=== PATIENT | female | born 1955 | race Caucasian/White ===

== ENCOUNTER 2019-07-31 13:49 | Emergency (ER) | payer MEDICAID, SELFPAY ==
[2019-07-31] MEDS ORDERED: IPRATROPIUM BROM 0.5MG/2.5ML ONE (14:24)
[2019-07-31] MEDS ORDERED: AZITHROMYCIN 250 MG TAB ONE (14:24)
[2019-07-31] MEDS ORDERED: LEVALBUTEROL 1.25 MG/3 ML NEB ONE ×2 (14:24→16:44)
[2019-07-31] MEDS ORDERED: METHYLPREDNISOLONE 125 MG INJ ONE (14:24)
--- NOTE | 2019-07-31 14:43 | RAD REPORT ---
EXAM DESCRIPTION: Pedro Luis Single View07/31/2019 2:35 pm CLINICAL HISTORY: Cough COMPARISON: 2016 FINDINGS: The lungs appear clear of acute infiltrate. The heart is normal size IMPRESSION: No acute abnormalities displayed
[2019-07-31 15:09] LABS: Absolute Lymphocytes (CBC) 1.4 K/uL (0.7-4.9); Basophils % 1.2 % (0-1.3); Hematocrit 33.4 % (36.0-45.0); Lymphocytes % 16.6 % (15.3-44.8); MPV 8.8 fL (7.6-11.3); RBC Red Blood Cell Count 3.94 M/uL (3.86-4.86)
[2019-07-31 15:25] LABS: ALT/SGPT 18 U/L (12-78); AST/SGOT 12 U/L (15-37); Albumin 3.5 g/dL (3.4-5.0); Alkaline Phosphatase 86 U/L (45-117); BUN Blood Urea Nitrogen 22 mg/dL (7-18); Bicarbonate 27 mmol/L (21-32); Bilirubin Direct 0.1 mg/dL (0-0.2); Bilirubin Total 0.4 mg/dL (0.2-1.0); CKMB Creatine Kinase MB < 1.0 ng/mL (0.3-3.6); Creatine Phosphokinase 37 U/L (26-192); Glucose Level 97 mg/dL (74-106); Lipase 124 U/L (73-393); Magnesium 2.2 mg/dL (1.8-2.4); NT PRO-BNP 67 pg/mL (<125); Potassium 4.5 mmol/L (3.5-5.1); Protein, Total 7.5 g/dL (6.4-8.2); Sodium Level 139 mmol/L (136-145); Troponin (Emerg Dept Use Only) < 0.02 ng/mL (0.0-0.045)
--- NOTE | 2019-07-31 15:29 | EDPHYS ---
Physician Documentation [facility] Name: Janice Harry Age: 63 yrs Sex: Female : 1955 Arrival Date: 07/31/2019 Time: 14:00 Bed 18 Private MD: ED Physician Fred Stone HPI: 07/31 14:59 This 63 yrs old Female presents to ER via EMS with complaints of Shortness Of ma2 Breath. 14:59 The patient has shortness of breath at rest. Onset: The symptoms/episode began/occurred ma2 gradually, 1 week(s) ago. Duration: The symptoms are intermittent. Associated signs and symptoms: Pertinent negatives: non-productive cough, diaphoresis, dizziness, hemoptysis. Severity of symptoms: At their worst the symptoms were mild in the emergency department the symptoms are unchanged. The patient has not experienced similar symptoms in the past. Historical: - Allergies: 14:28 Requip; sv 14:28 Tegretol; sv - PMHx: 17:06 Anxiety; Depression; Hyperlipidemia; Hypertension; ah - PSHx: 14:28 Appendectomy; Hysterectomy; Cholecystectomy; bilateral legs; left elbow; sv - Immunization history:: Flu vaccine is up to date. - Coronavirus screen:: The patient has NOT traveled to [place], [place], or [place] in the past 14 days. Proceed with normal triage process as indicated. The patient has NOT had contact with known/suspected case of Coronavirus? Proceed with normal triage procedures. - Social history:: Patient/guardian denies using alcohol, street drugs, The patient lives with family, Smoking status: Patient/guardian denies using tobacco, but has a distant history of tobacco abuse. - Family history:: not pertinent. - Ebola Screening: : No symptoms or risks identified at this time. ROS: 14:59 Constitutional: Negative for fever, chills, and weight loss. ma2 14:59 All other systems are negative. Exam: 14:59 Constitutional: This is a well developed, well nourished patient who is awake, alert, ma2 and in no acute distress. Head/Face: Normocephalic, atraumatic. Eyes: Pupils equal round and reactive to light, extra-ocular motions intact. Lids and lashes normal. Conjunctiva and sclera are non-icteric and not injected. Cornea within normal limits. Periorbital areas with no swelling, redness, or edema. ENT: Nares patent. No nasal discharge, no septal abnormalities noted. Tympanic membranes are normal and external auditory canals are clear. Oropharynx with no redness, swelling, or masses, exudates, or evidence of obstruction, uvula midline. Mucous membranes moist. Neck: Trachea midline, no thyromegaly or masses palpated, and no cervical lymphadenopathy. Supple, full range of motion without nuchal rigidity, or vertebral point tenderness. No Meningismus. Chest/axilla: Normal chest wall appearance and motion. Nontender with no deformity. No lesions are appreciated. Cardiovascular: Regular rate and rhythm with a normal S1 and S2. No gallops, murmurs, or rubs. Normal PMI, no JVD. No pulse deficits. Respiratory: Lungs have equal breath sounds bilaterally,+ bilat mild wheezes,. No rales, rhonchi or noted. No increased work of breathing, no retractions or nasal flaring. Abdomen/GI: Soft, non-tender, with normal bowel sounds. No distension or tympany. No guarding or rebound. No evidence of tenderness throughout. Back: No spinal tenderness. No costovertebral tenderness. Full range of motion. MS/ Extremity: Pulses equal, no cyanosis. Neurovascular intact. Full, normal range of motion. Neuro: Awake and alert, GCS 15, oriented to person, place, time, and situation. Cranial nerves II-XII grossly intact. Motor strength 5/5 in all extremities. Sensory grossly intact. Cerebellar exam normal. Normal gait. Vital Signs: 14:00 BP 123 / 62; Pulse 69; Resp 18; Temp 98.2; Pulse Ox 95% ; sv 15:10 BP 106 / 75; Pulse 63; Resp 19; Pulse Ox 99% ; ah 16:00 BP 134 / 57; Pulse 68; Resp 18; Pulse Ox 99% ; ah 17:00 BP 136 / 63; Pulse 67; Resp 19; Pulse Ox 95% ; ah MDM: 14:03 Patient medically screened. ma2 14:59 Differential diagnosis: Anemia Anxiety Reaction Bronchitis Chronic Obstructive ma2 Pulmonary Disease Psychogenic reactive airway disease. Antibiotic administration: The patient is discharged and will get outpatient antibiotics. Data reviewed: vital signs, nurses notes. Counseling: I had a detailed discussion with the patient and/or guardian regarding: the historical points, exam findings, and any diagnostic results supporting the discharge/admit diagnosis, the presence of at least one elevated blood pressure reading (>120/80) during this emergency department visit, the need for outpatient follow up. Response to treatment: the patient's symptoms have markedly improved after treatment. 07/31 14:05 Order name: Blood Culture Adult (2) 07/31 14:05 Order name: BMP [facility] 07/31 14:05 Order name: CBC with Diff 07/31 14:05 Order name: Ckmb 07/31 14:05 Order name: CPK ia07/31 14:05 Order name: D-Dimer [facility] 07/31 14:05 Order name: Hepatic Function ia07/31 14:05 Order name: Lipase [facility] 07/31 14:05 Order name: Magnesium [facility] 07/31 14:05 Order name: NT PRO-BNP [facility] 07/31 14:05 Order name: PT-INR [facility] 07/31 14:05 Order name: Ptt, Activated [facility] 07/31 14:05 Order name: Troponin (emerg Dept Use Only) ia07/31 15:16 Order name: CBC with Automated Diff; Complete Time: 15:27 EDMS 07/31 14:05 Order name: XRAY CXR (1 view) 07/31 15:21 Order name: RAD; Complete Time: 15:27 EDMS 07/31 15:26 Order name: Basic Metabolic Panel; Complete Time: 15:27 EDMS 07/31 15:26 Order name: Liver (Hepatic) Function; Complete Time: 15:27 EDMS 07/31 15:26 Order name: Creatine Phosphokinase; Complete Time: 15:27 EDMS 07/31 15:26 Order name: CKMB Creatine Kinase MB; Complete Time: 15:27 EDMS 07/31 15:26 Order name: Troponin (Emerg Dept Use Only); Complete Time: 15:27 EDMS 07/31 15:26 Order name: NT PRO-BNP; Complete Time: 15:27 EDMS 07/31 15:26 Order name: Magnesium; Complete Time: 15:27 EDMS 07/31 15:26 Order name: Lipase; Complete Time: 15:27 EDMS 07/31 15:48 Order name: Protime (+INR); Complete Time: 16:13 EDMS 07/31 15:48 Order name: PTT, Activated Partial Thromb; Complete Time: 16:13 EDMS 07/31 15:48 Order name: D-Dimer; Complete Time: 16:13 EDME 07/31 14:05 Order name: EKG; Complete Time: 14:09 ia2 07/31 14:05 Order name: Cardiac monitoring; Complete Time: 14:07 ia2 07/31 14:05 Order name: EKG - Nurse/Tech; Complete Time: 15:34 ia2 07/31 14:05 Order name: IV Saline Lock; Complete Time: 15:16 ma2 07/31 14:05 Order name: Labs collected and sent; Complete Time: 15:15 ia2 07/31 14:05 Order name: O2 Per Protocol; Complete Time: 14:08 ia2 07/31 14:05 Order name: O2 Sat Monitoring; Complete Time: 14:08 ia2 07/31 15:18 Order name: Labs - recollect needed: recollect blue top; Complete Time: 15:31 bd Administered Medications: 14:33 CANCELLED (Physician Discretion): AtroVENT Aerosol 0.5 mg Inhalation once; Every 20 min sv for a total of 3 treatments x3 15:00 Drug: SOLU-Medrol 125 mg Route: IVP; Site: right forearm; 17:11 Follow up: Response: No adverse reaction 15:00 Drug: Xopenex 1.25 mg Route: Inhalation; 15:00 Drug: AZITHromycin 500 mg Route: PO; 17:10 Follow up: Response: No adverse reaction 15:00 Drug: AtroVENT Aerosol 0.5 mg Route: Inhalation; 17:09 Follow up: Response: No adverse reaction Disposition: 07/31/19 15:28 Discharged to Home. Impression: Chronic obstructive pulmonary disease with (acute) exacerbation. - Condition is Stable. - Prescriptions for Zithromax Z- Avel 250 mg Oral Tablet - take 1 tablet by ORAL route as directed for 5 days Day 1 - take two (2) tablets one time. Day 2, 3, 4 , 5 take one (1) tablet once daily.; 6 tablet. Medrol (Avel) 4 mg Oral Tablets, Dose Pack - take 1 tablet by ORAL route as directed - follow package instructions; 1 packet. Albuterol Sulfate 90 mcg/actuation - inhale 1-2 puff by INHALATION route every 4-6 hours; 1 Inhaler. - Medication Reconciliation Form, Thank You Letter, Antibiotic Education, Prescription Opioid Use form. - Follow up: Private Physician; When: Tomorrow; Reason: Continuance of care. Signatures: Dispatcher [employer] Michelle De Paz Stephanie RN RN Fred Stone MD MD ia2 Chanel Espinal RN RN Corrections: (The following items were deleted from the chart) 14:33 14:05 AtroVENT Aerosol 0.5 mg Inhalation once; Every 20 min for a total of 3 treatments sv x3 ordered. ma2 17:06 14:28 PMHx: Anxiety; [facility] 17:06 14:28 PMHx: Depression; [facility] 17:06 14:28 PMHx: Hyperlipidemia; [facility] 17:06 14:28 PMHx: Hypertension; [facility] 17:10 15:28 07/31/2019 15:28 Discharged to Home. Impression: Chronic obstructive pulmonary ah disease with (acute) exacerbation. Condition is Stable. Prescriptions for Zithromax Z-Avel 250 mg Oral Tablet - take 1 tablet by ORAL route as directed for 5 days Day 1 - take two (2) tablets one time. Day 2, 3, 4 , 5 take one (1) tablet once daily.; 6 tablet, Medrol (Avel) 4 mg Oral Tablets, Dose Pack - take 1 tablet by ORAL route as directed - follow package instructions; 1 packet, Albuterol Sulfate 90 mcg/actuation - inhale 1-2 puff by INHALATION route every 4-6 hours; 1 Inhaler. and Forms are Medication Reconciliation Form, Thank You Letter, Antibiotic Education, Prescription Opioid Use. Follow up: Private Physician; When: Tomorrow; Reason: Continuance of care. ma2
--- NOTE | 2019-07-31 15:29 | ER ---
Nurse's Notes [facility] Name: Janice Harry Age: 63 yrs Sex: Female : 1955 Arrival Date: 07/31/2019 Time: 14:00 Bed 18 Private MD: Diagnosis: Chronic obstructive pulmonary disease with (acute) exacerbation Presentation: 07/31 14:01 Presenting complaint: EMS states: Pt was at clinic in [place] and her SOB became worse. pt was coughing and could not catch her breath vitals - 155/92, HR 81, temp 98.2, SpO2 98%, RR 20. Transition of care: clinic. Onset of symptoms was July 27, 2019. Risk Assessment: Do you want to hurt yourself or someone else? Patient reports no desire to harm self or others. Initial Sepsis Screen: Does the patient meet any 2 criteria? No. Patient's initial sepsis screen is negative. Care prior to arrival: Medication(s) given: Albuterol Neb. 14:01 Method Of Arrival: EMS: [place] [facility] 14:01 Acuity: HEBER 3 Historical: - Allergies: 14:28 Requip; sv 14:28 Tegretol; sv - PMHx: 17:06 Anxiety; Depression; Hyperlipidemia; Hypertension; ah - PSHx: 14:28 Appendectomy; Hysterectomy; Cholecystectomy; bilateral legs; left elbow; sv - Immunization history:: Flu vaccine is up to date. - Coronavirus screen:: The patient has NOT traveled to [place], [place], or [place] in the past 14 days. Proceed with normal triage process as indicated. The patient has NOT had contact with known/suspected case of Coronavirus? Proceed with normal triage procedures. - Social history:: Patient/guardian denies using alcohol, street drugs, The patient lives with family, Smoking status: Patient/guardian denies using tobacco, but has a distant history of tobacco abuse. - Family history:: not pertinent. - Ebola Screening: : No symptoms or risks identified at this time. Screenin:08 Abuse screen: Denies threats or abuse. Denies injuries from another. Nutritional sv screening: No deficits noted. Tuberculosis screening: No symptoms or risk factors identified. Fall Risk None identified. Assessment: 14:08 General: Appears Behavior is cooperative, appropriate for age. Pain: Denies pain. Neuro: Level of Consciousness is awake, alert, obeys commands, Oriented to person, place, time, situation. Cardiovascular: Heart tones S1 S2 present Capillary refill < 3 seconds Pulses are palpable in right radial artery, right dorsalis pedis artery, left radial artery and left dorsalis pedis artery. 14:08 Respiratory: Airway is patent Respiratory effort is even, labored, Respiratory pattern ah is regular, symmetrical, Breath sounds are coarse bilaterally. Breath sounds with wheezes in right upper lobe and left upper lobe Onset: The symptoms/episode began/occurred 4 days but worsened today, the patient has moderate shortness of breath. GI: Abdomen is non-distended, obese, Bowel sounds present X 4 quads. Abd is soft and non tender X 4 quads. : No signs and/or symptoms were reported regarding the genitourinary system. 16:25 Reassessment: Ok to discharge home. sv 17:02 Cardiovascular: Rhythm is. Vital Signs: 14:00 BP 123 / 62; Pulse 69; Resp 18; Temp 98.2; Pulse Ox 95% ; sv 15:10 BP 106 / 75; Pulse 63; Resp 19; Pulse Ox 99% ; ah 16:00 BP 134 / 57; Pulse 68; Resp 18; Pulse Ox 99% ; 17:00 BP 136 / 63; Pulse 67; Resp 19; Pulse Ox 95% ; ED Course: 14:00 Patient arrived in ED. 14:03 Fred Stone MD is Attending Physician. [facility] 14:06 Triage completed. 14:07 Chanel Espinal, RN is Primary Nurse. sv 14:08 Patient has correct armband on for positive identification. Placed in gown. Bed in low sv position. Call light in reach. Side rails up X2. aws software development engineer on. Pulse ox on. NIBP on. Door closed. Head of bed elevated. 14:29 Arm band placed on. sv 14:55 Accessed midline Clean \T\ dry. Good blood return. Flushes easily. 18G 10CM POWER GLIDE. rv 15:32 XRAY CXR (1 view) Sent. sv 15:32 BMP Sent. sv 15:32 CBC with Diff Sent. sv 15:32 Ckmb Sent. sv 15:32 CPK Sent. sv 15:33 D-Dimer Sent. sv 15:33 Hepatic Function Sent. sv 15:33 Lipase Sent. sv 15:33 Magnesium Sent. sv 15:33 NT PRO-BNP Sent. sv 15:34 PT-INR Sent. sv 15:34 Ptt, Activated Sent. sv 15:34 Troponin (emerg Dept Use Only) Sent. sv 15:34 Blood Culture Adult (2) Sent. sv 17:01 No provider procedures requiring assistance completed. Subsequent Neb Treatment Given as ordered Patient tolerated procedure well without adverse effect. IV discontinued, intact, bleeding controlled, No redness/swelling at site. Pressure dressing applied. Administered Medications: 14:33 CANCELLED (Physician Discretion): AtroVENT Aerosol 0.5 mg Inhalation once; Every 20 min sv for a total of 3 treatments x3 15:00 Drug: SOLU-Medrol 125 mg Route: IVP; Site: right forearm; ah 17:11 Follow up: Response: No adverse reaction 15:00 Drug: Xopenex 1.25 mg Route: Inhalation; ah 15:00 Drug: AZITHromycin 500 mg Route: PO; ah 17:10 Follow up: Response: No adverse reaction 15:00 Drug: AtroVENT Aerosol 0.5 mg Route: Inhalation; 17:09 Follow up: Response: No adverse reaction Outcome: 15:28 Discharge ordered by . elham 17:00 Condition: stable ah 17:00 Discharge instructions given to patient, Instructed on discharge instructions, medication usage, Demonstrated understanding of instructions, medications, Prescriptions given X 3. 17:04 Discharged to home ambulatory. ah 17:10 Patient left the ED. Signatures: Adrienne Ling RN RN Fred Stone MD MD inEleuterio De Leon RN RN Chanel Espinal RN RN Corrections: (The following items were deleted from the chart) 14:08 14:01 Presenting complaint: EMS states: Pt was at clinic in [place] and her SOB became ah worse. pt was coughing and could not catch her breath 15:32 14:08 Cardiovascular: Heart tones S1 S2 present Capillary refill < 3 seconds [facility] 17:06 14:28 PMHx: Anxiety; [facility] 17:06 14:28 PMHx: Depression; [facility] 17: 14:28 PMHx: Hyperlipidemia; [facility] 17:06 14:28 PMHx: Hypertension; [facility]
[2019-07-31 15:47] LABS: Protime INR 1.09
[2019-07-31] MEDS ORDERED: ACETAMINOPHEN 500 MG TAB ONE (16:47)
--- NOTE | 2019-07-31 17:42 | EKG ---
Test Date: 2019-07-31 Test Time: 14:22:09 Sterile Proc Tech: SISI MEASUREMENT RESULTS: Intervals: Rate: 65 AL: 194 QRSD: 88 QT: 408 QTc: 424 [place]: P: 42 AL: 194 QRS: -5 T: 42 INTERPRETIVE STATEMENTS: Normal sinus rhythm Low voltage QRS Cannot rule out Anterior infarct, age undetermined Abnormal ECG Compared to ECG 10/24/2015 17:26:49 Low QRS voltage now present Myocardial infarct finding now present Sinus bradycardia no longer present Electronically Signed On 07-31-19 17:42:12 TOMBSTONE ERECTOR by Atif Espinal
== END 2019-07-31 17:10 | disposition home or self-care (01) ==
LOC: ER 13:49
DX: J44.1 Chronic obstructive pulmonary disease with (acute) exacerbation (principal); I10 Essential (primary) hypertension; Z88.8 Allergy status to other drugs, medicaments and biological substances
CPT/HCPCS: 36415; 71045; 80048; 80076; 82550; 82553; 83690; 83735; 83880; 84484; 85025; 85379; 85610; 85730; 87040; 93005; 96374; 99285; J2930

== ENCOUNTER 2020-10-17 09:01 | Emergency (ER) | payer OTHER, SELFPAY ==
--- OUTSIDE RECORDS SUMMARY | 2020-10-17 09:04 | XMS REPORT | Continuity of Care Document ---
:1955 Author Organization [facility] t Address [address] [place] [address] Care Team Providers Name Role Phone Esperanza CR Attending Clinician BONILLA Attending Clinician Unavailable Jose DODSONP, Robert Attending Clinician Nathen MANUFACTURING DESIGN ENGINEER Attending Clinician Problems This patient has no known problems. Allergies, Adverse Reactions, Alerts This patient has no known allergies or adverse reactions. Medications This patient has no known medications. Procedures This patient has no known procedures. Encounters Start End Encounter Admission Attending Care Care Encounter Source Date/Time Date/Time Type Type Clinicians Facility Department ID 2020-10-16 2020-10-16 Refill LINDSEY Mata [id number] 00:00:00 00:00:00 Fidencio Bess [id number] [place] [id number] [place] [id number] nal 085 [facility] 2020-10-01 2020-10-01 Outpatient [facility] [id number] [place] 00:00:00 00:00:00 RHIANNON [address] 2020-09-19 2020-09-19 Outpatient [facility] [id number] [place] 00:00:00 00:00:00 RHIANNON [facility] 2020-09-04 2020-09-04 Outpatient [facility] [id number] [place] 00:00:00 00:00:00 RHIANNON [address] [facility] 2020-08-28 2020-08-28 Outpatient [facility] [id number] [place] 00:00:00 00:00:00 RHIANNON [address] 2020-08-20 2020-08-20 Outpatient [facility] [id number] [place] 00:00:00 00:00:00 RHIANNON [address] [facility] 2020-08-13 2020-08-13 Outpatient [facility] [id number] [place] 00:00:00 00:00:00 RHIANNON [address] [facility] 2020-07-30 2020-07-30 Outpatient [facility] [id number] [place] 00:00:00 00:00:00 RHIANNON [address] 2020-06-17 2020-06-17 Urgent [facility] [id number] 18:48:25 19:08:25 Care [facility] [id number] [place] [id number] [facility] [phone] nal [address] 2020-05-27 2020-05-[address] [facility] [id number] 16:58:39 17:55:24 Care [facility] [id number] [place] [id number] [facility] [id number] nal 0[address] Results This patient has no known results.
[2020-10-17 09:44] LABS: Urine Blood 3+ (Negative); Urine Glucose Negative (Negative); Urine Protein 3+ (Negative); Urine Specific Gravity 1.025 (1.005-1.030)
[2020-10-17 10:14] LABS: Urine Bacteria <20 /HPF (<20); Urine RBC >50 /HPF (NONE SEEN); Urine Urothelial Cells <5 /HPF (NONE SEEN)
[2020-10-17] MEDS ORDERED: HYDROCODONE/APAP 10/325 TAB ONE (10:29)
[2020-10-17] MEDS ORDERED: PHENAZOPYRIDINE 100MG TAB PO ONE (10:29)
[2020-10-17] MEDS ORDERED: levoFLOXacin 500 MG TAB ONE (10:29)
--- NOTE | 2020-10-17 13:42 | EDPHYS ---
Physician Documentation [facility] Name: Janice Harry Age: 65 yrs Sex: Female : 1955 Arrival Date: 10/17/2020 Time: 09:07 Bed 14 Private MD: Cr Roy E ED Physician Salvador Wakefield Historical: - Allergies: 10/17 09:25 Requip; ss 09:25 Tegretol; ss - PMHx: 09:25 Anxiety; Depression; Hyperlipidemia; Hypertension; ss - PSHx: 09:25 Appendectomy; Hysterectomy; Cholecystectomy; bilateral legs; left elbow; ss - Immunization history:: Adult Immunizations up to date. - Social history:: Smoking status: Patient denies any tobacco usage or history of. Vital Signs: 09:21 Pulse 91; Resp 18; Temp 99.0(TE); Pulse Ox 98% on R/A; Weight 99.79 kg; Height 5 ft. 8 ss in. (172.72 cm); Pain 8/10; 10:30 BP 167 / 72; Pulse 90; Resp 16; Pulse Ox 97% on R/A; vg1 11:35 BP 170 / 78; Pulse 87; Resp 16; Pulse Ox 100% on R/A; vg1 09:21 Body Mass Index 33.45 (99.79 kg, 172.72 cm) ss MDM: 13:42 Patient medically screened. kdr 10/17 09:43 Order name: Urine Dipstick-Ancillary; Complete Time: 10:08 EDDC 10/17 09:44 Order name: Urine Microscopic Only; Complete Time: 11:25 ss 10/17 10:15 Order name: Urine Culture [facility] 10/17 09:21 Order name: Urine Dipstick-Ancillary (obtain specimen); Complete Time: 09:44 kdr Administered Medications: 10:17 Drug: LevaQUIN (levofloxacin) 500 mg Route: PO; em 13:49 Follow up: Response: No adverse reaction vg1 10:17 Drug: Pyridium (phenazopyridine) 200 mg Route: PO; em 13:49 Follow up: Response: No adverse reaction; Pain is decreased vg1 10:17 Drug: Cobb (HYDROcodone-acetaminophen) 10 mg-325 mg 1 tabs Route: PO; em 13:49 Follow up: Response: No adverse reaction; Pain is decreased vg1 Disposition: 10/17/20 13:42 Discharged to Home. Impression: Hematuria, Dysuria, Cystitis, unspecified with hematuria. - Condition is Stable. - Discharge Instructions: Dysuria, Urinary Tract Infection, Adult, Ilpo-my-Qyil. - Prescriptions for Levaquin 500 mg Oral Tablet - take 1 tablet by ORAL route once daily for 7 days; 7 tablet. Pyridium 200 mg Oral Tablet - take 1 tablet by ORAL route every 8 hours for 3 days; 9 tablet. Zofran 4 mg Oral Tablet - take 1 tablet by ORAL route every 4-6 hours As needed; 12 tablet. Tramadol 50 mg Oral Tablet - take 1 tablet by ORAL route every 8 hours as needed; 12 tablet. - Medication Reconciliation Form, Thank You Letter, Antibiotic Education, Prescription Opioid Use form. - Follow up: Cr Roy MD; When: 2 - 3 days; Reason: If symptoms return, Further diagnostic work-up, Recheck today's complaints, Continuance of care, Re-evaluation by your physician. - Problem is new. - Symptoms have improved. Addendum: 10/30/2020 15:50 Addendum: CC: Blood in her urine and pain with urination, HPI The patient states that k dr she began to have pain with urination and blood in her urine this morning. She has not had this before. She is also c/o sharp pain in the suprapubic region. ROS: 10 point ROS all negative except for hematuria, dysuria and suprapubic pain. EXAM: WDWN WF NAD, Head and Neck: Normal cephalic and FROM, Chest: No injury or deformity, Lungs: CTAB, Cor: RRR, Nl s1 and S2, Abd: soft NT except, BS nl, minor suprapubic pain with palpation, Ext: FROM, good n'v intact, Neuro: A\T\O x 3. Addendum: MDM: The patient was happy with the care provided and the plan for discharge and follow-up. Signatures: Dispatcher [employer] Salvador Yan MD MD kdr Munoz, Edgar, RN RN Mila Roberto RN RN ss Garcia, Victoria, RN RN vg1 Corrections: (The following items were deleted from the chart) 10/17 13:50 13:42 10/17/2020 13:42 Discharged to Home. Impression: Hematuria; Dysuria; Cystitis, vg1 unspecified with hematuria. Condition is Stable. Forms are Medication Reconciliation Form, Thank You Letter, Antibiotic Education, Prescription Opioid Use. Follow up: Cr Roy; When: 2 - 3 days; Reason: If symptoms return, Further diagnostic work-up, Recheck today's complaints, Continuance of care, Re-evaluation by your physician. Problem is new. Symptoms have improved. kdr
--- NOTE | 2020-10-17 13:42 | ER ---
Nurse's Notes [facility] Name: Janice Harry Age: 65 yrs Sex: Female : 1955 Arrival Date: 10/17/2020 Time: 09:07 Bed 14 Private MD: Cr Roy E Diagnosis: Hematuria;Dysuria;Cystitis, unspecified with hematuria Presentation: 10/17 09:21 Chief complaint: Patient states: pain with urination that began this morning with first ss void. Pt reports she had blood in her urine also with clots. C/o sharp suprapubic pain. Coronavirus screen: Client denies travel out of the [place] in the last 14 days. Ebola Screen: Patient denies exposure to infectious person. Patient denies travel to an Ebola-affected area in the 21 days before illness onset. Initial Sepsis Screen: Does the patient meet any 2 criteria? Does the patient have a suspected source of infection? No. Patient's initial sepsis screen is negative. Risk Assessment: Do you want to hurt yourself or someone else? Patient reports no desire to harm self or others. Onset of symptoms was October 17, 2020. 09:21 Method Of Arrival: Ambulatory ss 09:21 Acuity: HEBER 3 ss Historical: - Allergies: 09:25 Requip; ss 09:25 Tegretol; ss - PMHx: 09:25 Anxiety; Depression; Hyperlipidemia; Hypertension; ss - PSHx: 09:25 Appendectomy; Hysterectomy; Cholecystectomy; bilateral legs; left elbow; ss - Immunization history:: Adult Immunizations up to date. - Social history:: Smoking status: Patient denies any tobacco usage or history of. Screenin:36 Abuse screen: Denies threats or abuse. Nutritional screening: No deficits noted. tw2 Tuberculosis screening: No symptoms or risk factors identified. Fall Risk None identified. Assessment: 09:10 General: Appears in no apparent distress. obese, well groomed, Behavior is calm, tw2 cooperative, appropriate for age. Pain: Complains of pain in back. Neuro: Level of Consciousness is awake, alert, obeys commands, Oriented to person, place, time, situation. Cardiovascular: Patient's skin is warm and dry. Respiratory: Airway is patent Respiratory effort is even, unlabored, Respiratory pattern is regular, symmetrical. GI: No signs and/or symptoms were reported involving the gastrointestinal system. : Reports burning with urination, urinary frequency. EENT: No signs and/or symptoms were reported regarding the EENT system. Derm: No signs and/or symptoms reported regarding the dermatologic system. Musculoskeletal: Range of motion: intact in all extremities. 09:36 Reassessment: pt in restroom at this time, states "i might be a bit, im trying to tw2 urinate". 10:29 Reassessment: No changes from previously documented assessment. Patient and/or family vg1 updated on plan of care and expected duration. Pain level reassessed. Patient is alert, oriented x 3, equal unlabored respirations, skin warm/dry/pink. Pt stated pain 8/10. 11:31 Reassessment: Patient appears in no apparent distress at this time. No changes from vg1 previously documented assessment. Patient and/or family updated on plan of care and expected duration. Pain level reassessed. Patient is alert, oriented x 3, equal unlabored respirations, skin warm/dry/pink. Vital Signs: 09:21 Pulse 91; Resp 18; Temp 99.0(TE); Pulse Ox 98% on R/A; Weight 99.79 kg; Height 5 ft. 8 ss in. (172.72 cm); Pain 8/10; 10:30 BP 167 / 72; Pulse 90; Resp 16; Pulse Ox 97% on R/A; vg1 11:35 BP 170 / 78; Pulse 87; Resp 16; Pulse Ox 100% on R/A; vg1 09:21 Body Mass Index 33.45 (99.79 kg, 172.72 cm) ED Course: 09:07 Patient arrived in ED. mr 09:07 Cr Roy MD is Private Physician. mr 09:10 Bed in low position. Call light in reach. Pulse ox on. tw2 09:20 Salvador Wakefield MD is Attending Physician. kdr 09:24 Triage completed. ss 09:25 Arm band placed on right wrist. ss 09:36 Agnieszka Fox RN is Primary Nurse. tw2 10:05 Primary Nurse role handed off by Agnieszka Fox RN vg1 10:05 Carmen Callahan RN is Primary Nurse. vg1 13:39 Cr Roy MD is Referral Physician. kdr 13:49 No provider procedures requiring assistance completed. Patient did not have IV access vg1 during this emergency room visit. Administered Medications: 10:17 Drug: LevaQUIN (levofloxacin) 500 mg Route: PO; em 13:49 Follow up: Response: No adverse reaction vg1 10:17 Drug: Pyridium (phenazopyridine) 200 mg Route: PO; em 13:49 Follow up: Response: No adverse reaction; Pain is decreased vg1 10:17 Drug: [place] (HYDROcodone-acetaminophen) 10 mg-325 mg 1 tabs Route: PO; em 13:49 Follow up: Response: No adverse reaction; Pain is decreased vg1 Outcome: 13:42 Discharge ordered by . kdr 13:49 Discharged to home ambulatory. vg1 13:49 Condition: stable 13:49 Discharge instructions given to patient, Instructed on discharge instructions, follow up and referral plans. medication usage, Demonstrated understanding of instructions, follow-up care, medications, Prescriptions given X 1. 13:50 Patient left the ED. vg1 Signatures: Savlador Wakefield MD MD kdr Rivera, Mary mr Munoz, Edgar, LESLIE RN Mila Roberto RN RN ss Agnieszka Fox RN RN tw2 Carmen Callahan RN RN vg1
[2020-10-17 13:54] VITALS: TEMP 99
[2020-10-17 13:56] VITALS: BP 170/78; O2SAT 100
== END 2020-10-17 13:50 | disposition home or self-care (01) ==
LOC: ER 09:01
DX: N30.91 Cystitis, unspecified with hematuria (principal); I10 Essential (primary) hypertension; Z88.8 Allergy status to other drugs, medicaments and biological substances
CPT/HCPCS: 81003; 81015; 87086; 87088; 99283

== ENCOUNTER 2021-01-31 22:49 | Emergency (ER) | payer OTHER ==
--- OUTSIDE RECORDS SUMMARY | 2021-02-01 00:21 | XMS REPORT | Continuity of Care Document ---
:1955 Author Organization [facility] t Address [address] [place] [address] Care Team Providers Name Role Phone Asked, Pcp Primary Care Physician Unavailable Stefano DIAZ Attending Clinician Shruti DIAZ S Attending Clinician Esperanza CR Attending Clinician Ventura DIAZ, K.H. Attending Clinician Manuela DIAZ Attending Clinician Dylan HART Attending Clinician Unavailable Maria D Lomax PT Attending Clinician Unavailable Robert Mathias Attending Clinician Nathen AGUILAR Attending Clinician Payers Payer Name Policy Type Policy Effective Date Expiration Date Sour ce Number [id number] Condition Condition Condition Status Onset Resolution Last Treating Co mments Source Name Details Category Date Date Treatment Clinician Date Acute pain Acute pain Disease Active 0 M ethodi of right of right 4-01 st shoulder shoulder 00:00: Hospit a 00 l Allergies, Adverse Reactions, Alerts This patient has no known allergies or adverse reactions. Social History Social Habit Start Date Stop Date Quantity Comments Source Sex Assigned At [birth year] [facility] 00:00:00 00:00:00 Smoking Status Start Date Stop Date Source Unknown if ever smoked [facility] Medications This patient has no known medications. Procedures This patient has no known procedures. Plan of Care Planned Activity Planned Date Details Comments Source Future Scheduled Test Hepatitis C screening [facility] (procedure) [code = 195623859] Future Scheduled Test BREAST CANCER SCREENING [facility] [code = BREAST CANCER SCREENING] Future Scheduled Test COLONOSCOPY SCREENING [facility] [code = COLONOSCOPY SCREENING] Future Scheduled Test SHINGLES VACCINES (#2) [facility] [code = SHINGLES VACCINES (#2)] Future Scheduled Test INFLUENZA VACCINE [code [facility] = INFLUENZA VACCINE] Future Scheduled Test 65+ PNEUMOCOCCAL [facility] VACCINE (2 of 2) [code = 65+ PNEUMOCOCCAL VACCINE (2 of 2)] Encounters Start End Encounter Admission Attending Care Care Encounter Source Date/Time Date/Time Type Type Clinicians Facility Department ID 2021-01-30 2021-01-30 Emergency [facility] [id number] 06:55:00 10:29:00 Vishal Bess 350.1.13.10 [place] 4.2.7.2.686 [place] [id number] 2021-01-29 2021-01-30 Emergency [facility], [facility] [id number] 21:35:00 01:50:00 Liana Bess 350.1.13.10 [place] 4.2.7.2.686 [place] [id number] 2020-11-18 2020-11-18 Refbarbie Mata [facility] [id number] 00:00:00 00:00:00 Fidencio Bess 350.1.13.10 [place] 4.2.7.2.686 Professio [id number] nal 085 [facility] 2020-11-14 2020-11-14 Isabel Whitehead [facility] [id number] 00:00:00 00:00:00 Sendlawrence Bess [id number] [place] 4.2.7.2.686 Professio [phone] nal 059 [facility] 2020-10-16 2020-10-16 Isabel Mata [facility] [id number] 00:00:00 00:00:00 Fidencio Bess 350.1.13.10 [place] 4.2.7.2.686 rosa [id number] nal 085 [facility] 2020-10-01 2020-10-01 Treatment Bonilla, Rhiannon 1.2.840.1 [id number] Methodi 15:27:18 16:08:34 Beny Richardson 16391.1.[address] 3.430.2.7 Hospit a .3.524219 l .8 2020-10-01 2020-10-01 Outpatient BONILLA, [facility] [id number] [address] [place] [address] 00:00:00 00:00:[address] 2020-10-01 2020-10-01 Travel 1.2.840.1 [id number] Methodi 00:00:00 00:00:[address] 3.430.2.7 0.2.7.3.698 Ho spita .3.864943 084.8 l .8 2020-09-19 2020-09-19 Treatment Manuela, Rhiannon 1.2.840.1 [id number] Methodi 14:47:22 16:15:02 Beny Richardson [address]22.1.[address] 3.430.2.7 Hospit a .3.365039 l .8 2020-09-19 2020-09-19 Travel 1.2.840.1 1.2.143.739 [id number] Methodi 00:00:00 00:00:[address] 3.430.2.7 0.2.7.3.698 Ho spita .3.087389 084.8 l .8 2020-09-19 2020-09-19 Outpatient BONILLA, [facility] [id number] 00:00:00 00:00:00 RHI[address]ON [address] 2020-09-17 2020-09-17 Documentat Richardson, 1.2.840.1 [id number] Methodi 00:00:00 00:00:[address]1.[address] 3.430.2.7 Hospit a .3.162139 l .8 2020-09-04 2020-09-04 Treatment Bonilla, Rhiannon 1.2.840.1 [id number] Methodi 15:21:22 16:38:[address]15.[address] 3.430.2.7 Hospit a .3.581515 l .8 2020-09-04 2020-09-04 Plan of 1.2.840.1 [id number] Methodi 00:00:00 00:00:[address] Documentat 3.430.2.7 Hos marian ion .3.646472 l .8 2020-09-04 2020-09-04 Travel 1.2.840.1 1.2.618.504 [id number] [id number] Methodi 00:00:00 00:00:[address] 3.430.2.7 0.2.7.3.698 Ho spita .3.870078 084.8 l .8 2020-09-04 2020-09-04 Outpatient BONILLA, [facility] [id number] [address] [place] [address] 00:00:00 00:00:[address] 2020-08-28 2020-08-28 Treatment Bonilla, Rhiannon 1.2.840.1 [id number] Methodi 13:52:33 16:45:[address] 3.430.2.7 Hospit a .3.841966 l .8 2020-08-28 2020-08-28 Travel 1.2.840.1 1.2.150.045 [id number] Methodi 00:00:00 00:00:[address] 3.430.2.7 0.2.7.3.698 Ho spita .3.117359 084.8 l .8 2020-08-28 2020-08-28 Plan of 1.2.840.1 [id number] Methodi 00:00:00 00:00:[address] Documentat 3.430.2.7 Hos marian ion .3.351720 l .8 2020-08-28 2020-08-28 Outpatient BONILLA, [facility] [id number] [place] 00:00:00 00:00:00 [address]HI[address]ON [address] 2020-08-20 2020-08-20 Travel 1.2.840.1 1.2.973.493 [id number] [id number] Methodi 00:00:00 00:00:[address] 3.430.2.7 0.2.7.3.698 Ho spita .3.742223 084.8 l .8 2020-08-20 2020-08-20 Outpatient BONILLA, [facility] [id number] [address] [place] [address] 00:00:00 00:00:00 RHIANNON [address] 2020-08-13 2020-08-13 Travel 1.2.840.1 1.2.374.145 [id number] Methodi 00:00:00 00:00:[address] 3.430.2.7 0.2.7.3.698 Ho spita .3.948394 084.8 l .8 2020-08-13 2020-08-13 Outpatient BONILLA, [facility] [id number] [place] 00:00:00 00:00:00 [address]HIANNON [address] 2020-07-30 2020-07-30 Travel 1.2.840.1 1.2.198.335 [id number] [id number] Methodi 00:00:00 00:00:[address] 3.430.2.7 0.2.7.3.698 Ho spita .3.062681 084.8 l .8 2020-07-30 2020-07-30 Outpatient BONILLA, [facility] [id number] [place] 00:00:00 00:00:[address] 2020-07-22 2020-07-22 Transcribe Bonilla, 1.2.840.1 [id number] Methodi 00:00:00 00:00:00 Orders Rhiannon 30826.1.[address] 3.430.2.7 Hospit a .3.927451 l .8 2020-06-17 2020-06-17 Urgent [facility] 1.2.840.114 [id number] 18:48:25 19:08:25 Care [facility] 350.1.13.10 [place] 4.2.7.2.686 Professio [id number] nal 0[address] 2020-05-27 2020-05-27 Urgent [facility] 1.2.840.114 [id number] 16:58:39 17:55:24 Care [facility] 350.1.13.10 [place] 4.2.7.2.686 Professio [phone] nal 0[address] Results This patient has no known results.
[2021-02-01] MEDS ORDERED: METHYLPREDNISOLONE 125 MG INJ ONE (00:32)
[2021-02-01] MEDS ORDERED: DIPHENHYDRAMINE 50 MG/ML VIAL ONE (00:39)
[2021-02-01] MEDS ORDERED: FAMOTIDINE 20 MG/2 ML VIAL IV ONE (00:40)
--- NOTE | 2021-02-01 02:35 | ER ---
Nurse's Notes [facility] Name: Janice Harry Age: 65 yrs Sex: Female : 1955 Arrival Date: 01/31/2021 Time: 22:49 Bed Waiting Private MD: Diagnosis: Allergic urticaria-and hives Presentation: 02/01 00:04 Chief complaint: Patient states: rash popped up 3 days ago, went to [facility] and they em gave me steroids in the IV, denies shortness of breath. Coronavirus screen: Client denies travel out of the [place] in the last 14 days. Ebola Screen: Patient negative for fever greater than or equal to 101.5 degrees Fahrenheit, and additional compatible Ebola Virus Disease symptoms Patient denies exposure to infectious person. Patient denies travel to an Ebola-affected area in the 21 days before illness onset. No symptoms or risks identified at this time. Anaphylaxis evaluation, the patient reports or I have noted the following symptoms which indicate a significant risk of anaphylaxis: urticaria. Initial Sepsis Screen: Does the patient meet any 2 criteria? No. Patient's initial sepsis screen is negative. Does the patient have a suspected source of infection? No. Patient's initial sepsis screen is negative. Risk Assessment: Do you want to hurt yourself or someone else? Patient reports no desire to harm self or others. Onset of symptoms was February 01, 2021. 00:04 Method Of Arrival: Ambulatory em 00:04 Acuity: HEBER 3 em Historical: - Allergies: 00:06 Requip; em 00:06 Tegretol; em - PMHx: 00:06 Anxiety; Depression; Hypertension; Hyperlipidemia; em - Immunization history:: Adult Immunizations up to date. - Social history:: Smoking status: Patient denies any tobacco usage or history of. Screenin:04 Abuse screen: Denies threats or abuse. Nutritional screening: No deficits noted. em Tuberculosis screening: No symptoms or risk factors identified. Fall Risk None identified. Assessment: 00:06 General: Appears in no apparent distress. comfortable, Behavior is calm, cooperative, em appropriate for age. Pain: Denies pain. Neuro: Level of Consciousness is awake, alert, Oriented to person, place, time, situation. Cardiovascular: Capillary refill < 3 seconds Patient's skin is warm and dry. Respiratory: Airway is patent Respiratory effort is even, unlabored, Respiratory pattern is regular, symmetrical, Breath sounds are clear Denies shortness of breath. Derm: Skin is intact, Skin is pink, warm \T\ dry. Rash noted that is urticaria, on abdomen, right arm, left arm, right leg and left leg. Musculoskeletal: Capillary refill < 3 seconds. 01:49 Reassessment: Patient appears in no apparent distress at this time. Patient states em feeling better. Patient states symptoms have improved. Vital Signs: 00:04 Pulse 101; Resp 20; Temp 97.0; Pulse Ox 99% on R/A; em 00:06 BP 157 / 106; em ED Course: 01/31 22:49 Patient arrived in ED. bp1 08 00:04 Patient has correct armband on for positive identification. em 00:06 Triage completed. em 00:06 Arm band placed on. em 00:07 Adolfo aDvies PA is PHCP. cp 00:07 [place] Palacio MD is Attending Physician. cp 00:15 Inserted saline lock: 24 gauge in right forearm, using aseptic technique. Blood em collected. 02:46 No provider procedures requiring assistance completed. em 02:49 IV discontinued, intact, bleeding controlled, No redness/swelling at site. Pressure em dressing applied. Administered Medications: 00:15 Drug: SOLU-Medrol (methylPrednisoLONE) 125 mg Route: IVP; Site: right forearm; em 02:49 Follow up: Response: No adverse reaction; Marked relief of symptoms em 00:15 Drug: Pepcid (famotidine) 20 mg Route: IVP; Site: right forearm; em 02:50 Follow up: Response: No adverse reaction; Marked relief of symptoms em 00:15 Drug: Benadryl (diphenhydrAMINE) 50 mg Route: IVP; Site: right forearm; em 02:50 Follow up: Response: No adverse reaction; Marked relief of symptoms em 02:49 Not Given (Physician Discretion): Ativan (LORazepam) 1 mg PO once em Outcome: 02:34 Discharge ordered by . cp 02:48 Discharged to home ambulatory. em 02:48 Condition: improved 02:48 Discharge instructions given to patient, Instructed on discharge instructions, follow up and referral plans. medication usage, Demonstrated understanding of instructions, follow-up care, medications, Prescriptions given X 2. 02:50 Patient left the ED. em Signatures: Enrique Cook, RN RN em Adolfo Davies PA PA cp [place], Brittany [facility]
--- NOTE | 2021-02-01 02:35 | EDPHYS ---
Physician Documentation [facility] Name: Janice Harry Age: 65 yrs Sex: Female : 1955 Arrival Date: 01/31/2021 Time: 22:49 Bed Waiting Private MD: ED Physician [place] Palacio HPI: 02/01 00:05 This 65 yrs old Female presents to ER via Ambulatory with complaints of cp Hives, Allergic Reaction. 00:05 Onset: The symptoms/episode began/occurred 3 day(s) ago. cp 00:05 The patient's rash thought to be caused by an unknown cause. cp 00:05 The rash is located on the body diffusely. The rash can be described as erythematous. cp Associated signs and symptoms: Pertinent positives: burning sensation, itching, Pertinent negatives: difficulty breathing, swelling of lips, swelling of throat, swelling of tongue, vomiting, wheezing. Severity of symptoms: in the emergency department the symptoms are unchanged despite home interventions. Treatment given at home: prescribed Atarax, OTC Benadryl, prescribed antibiotic due to concern for skin infection. Historical: - Allergies: 00:06 Requip; em 00:06 Tegretol; em - PMHx: 00:06 Anxiety; Depression; Hypertension; Hyperlipidemia; em - Immunization history:: Adult Immunizations up to date. - Social history:: Smoking status: Patient denies any tobacco usage or history of. ROS: 00:09 Constitutional: Negative for body aches, chills, fever, poor PO intake. cp 00:09 Respiratory: Negative for cough, shortness of breath, wheezing. 00:09 Abdomen/GI: Negative for abdominal pain, nausea, vomiting, and diarrhea. 00:09 Skin: Positive for rash, diffusely. 00:09 Eyes: Negative for injury, pain, redness, and discharge. cp 00:09 Cardiovascular: Negative for chest pain, edema, palpitations. cp 00:09 Neuro: Negative for altered mental status, headache, weakness. 00:09 All other systems are negative. Exam: 00:09 Head/Face: Normocephalic, atraumatic. cp 00:09 Constitutional: The patient appears in no acute distress, alert, awake, non-toxic, well developed, well nourished, obese, uncomfortable. 00:09 ENT: Mouth: Lips: moist, normal, Tongue: is normal, Posterior pharynx: Airway: no evidence of obstruction, patent, swelling, is not appreciated, erythema, is not appreciated, exudate, is not appreciated, Voice: is normal. 00:09 Cardiovascular: Rate: tachycardic. 00:09 Respiratory: the patient does not display signs of respiratory distress, Respirations: normal, no use of accessory muscles, no retractions, labored breathing, is not present, Breath sounds: are clear throughout, no decreased breath sounds, no stridor, no wheezing. 00:09 Skin: consistent with hives, and is diffusely located. 00:09 Neuro: Orientation: to person, place \T\ time. Mentation: is normal, Motor: moves all fours, strength is normal. Vital Signs: 00:04 Pulse 101; Resp 20; Temp 97.0; Pulse Ox 99% on R/A; em 00:06 BP 157 / 106; em MDM: 02:33 Data reviewed: vital signs, nurses notes. 02:33 Counseling: I had a detailed discussion with the patient and/or guardian regarding: the cp historical points, exam findings, and any diagnostic results supporting the discharge/admit diagnosis, the need for outpatient follow up, an allergy/marine cargo specialist, a director pharmaceutical, to return to the emergency department if symptoms worsen or persist or if there are any questions or concerns that arise at home. Response to treatment: the patient's symptoms have mildly improved after treatment, and as a result, I will discharge patient. 02:34 Patient medically screened. 02/01 00:09 Order name: IV; Complete Time: :14 cp Administered Medications: 00:15 Drug: SOLU-Medrol (methylPrednisoLONE) 125 mg Route: IVP; Site: right forearm; em 02:49 Follow up: Response: No adverse reaction; Marked relief of symptoms em 00:15 Drug: Pepcid (famotidine) 20 mg Route: IVP; Site: right forearm; em 02:50 Follow up: Response: No adverse reaction; Marked relief of symptoms em 00:15 Drug: Benadryl (diphenhydrAMINE) 50 mg Route: IVP; Site: right forearm; em 02:50 Follow up: Response: No adverse reaction; Marked relief of symptoms em 02:49 Not Given (Physician Discretion): Ativan (LORazepam) 1 mg PO once em Disposition: 05:08 Co-signature as Attending Physician, [place] Palacio MD. [email or web address] Disposition Summary: 02/01/21 02:34 Discharge Ordered Location: Home cp Problem: an ongoing problem cp Symptoms: have improved cp Condition: Stable cp Diagnosis - Allergic urticaria - and hives cp Followup: cp - With: Private Physician - When: 2 - 3 days - Reason: Recheck today's complaints Discharge Instructions: - Discharge Summary Sheet cp - Hives cp - Rash, Adult cp Forms: - Medication Reconciliation Form cp - Thank You Letter cp - Antibiotic Education cp - Prescription Opioid Use cp Prescriptions: - Prednisone 20 mg Oral Tablet - take 2 tablets by ORAL route once daily for 5 days then take 1 tablet daily for cp 5 days; 15 tablet; Refills: 0, Product Selection Permitted - EpiPen - inject 1 pen by INTRAMUSCULAR route as directed As needed; 2 Syringe; Refills: cp 0, Product Selection Permitted - Pepcid 20 mg Oral Tablet - take 1 tablet by ORAL route every 12 hours for 10 days; 20 tablet; Refills: 0, cp Product Selection Permitted Signatures: Enrique Cook, RN RN em Adolfo Davies PA PA cp [place] Palacio MD MD [email or web address] Corrections: (The following items were deleted from the chart) 22:36 00:05 Treatment given at home: prescribed Atarax, OTC Benadryl. cp cp
[2021-02-01 02:57] VITALS: TEMP 97; O2SAT 99
[2021-02-01 02:58] VITALS: BP 157/106
== END 2021-02-01 02:50 | disposition home or self-care (01) ==
LOC: ER 22:49
DX: L50.0 Allergic urticaria (principal); I10 Essential (primary) hypertension; Z88.8 Allergy status to other drugs, medicaments and biological substances
CPT/HCPCS: 96375; 96374; 99284; J1200; J2930

== ENCOUNTER 2021-02-01 18:21 | Emergency (ER) | payer OTHER ==
--- OUTSIDE RECORDS SUMMARY | 2021-02-01 18:23 | XMS REPORT | Continuity of Care Document ---
:1955 Author Organization [facility] t Address [address] [place] [address] Care Team Providers Name Role Phone Asked, Pcp Primary Care Physician Unavailable Stefano DIAZ Attending Clinician Shruti DIAZ S Attending Clinician Esperanza CR Attending Clinician Ventura DIAZ, K.H. Attending Clinician Manuela DIAZ Attending Clinician Dylan HART Attending Clinician Unavailable Maria D Lomax PT Attending Clinician Unavailable Jose DODSONPRobert Attending Clinician Nathen WINCHER Attending Clinician Payers Payer Name Policy Type Policy Effective Date Expiration Date Sour ce Number [id number]-PresentH[facility] Problems Condition Condition Condition Status Onset Resolution Last Treating Co mments Source Name Details Category Date Date Treatment Clinician Date Acute pain Acute pain Disease Active 0 M ethodi of right of right 4 st shoulder shoulder 00:00: Hospit a 00 l Allergies, Adverse Reactions, Alerts This patient has no known allergies or adverse reactions. Social History Social Habit Start Date Stop Date Quantity Comments Source Sex Assigned At [birth year] [facility] 00:00:00 00:00:00 Smoking Status Start Date Stop Date Source Unknown if ever smoked [facility] Medications This patient has no known medications. Procedures This patient has no known procedures. Plan of Care Planned Activity Planned Date Details Comments Source Future Scheduled Test Hepatitis C screening [facility] (procedure) [code = 969801048] Future Scheduled Test BREAST CANCER SCREENING [facility] [code = BREAST CANCER SCREENING] Future Scheduled Test COLONOSCOPY SCREENING [facility] [code = COLONOSCOPY SCREENING] Future Scheduled Test SHINGLES VACCINES (#2) [facility] [code = SHINGLES VACCINES (#2)] Future Scheduled Test INFLUENZA VACCINE [code [facility] = INFLUENZA VACCINE] Future Scheduled Test 65+ PNEUMOCOCCAL [facility] VACCINE (2 of 2) [code = 65+ PNEUMOCOCCAL VACCINE (2 of 2)] Future Scheduled Test Hepatitis C screening [facility] (procedure) [code = 885832909] Future Scheduled Test BREAST CANCER SCREENING [facility] [code = BREAST CANCER SCREENING] Future Scheduled Test COLONOSCOPY SCREENING [facility] [code = COLONOSCOPY SCREENING] Future Scheduled Test SHINGLES VACCINES (#2) [facility] [code = SHINGLES VACCINES (#2)] Future Scheduled Test INFLUENZA VACCINE [code [facility] = INFLUENZA VACCINE] Future Scheduled Test 65+ PNEUMOCOCCAL [facility] VACCINE (2 of 2) [code = 65+ PNEUMOCOCCAL VACCINE (2 of 2)] Encounters Start End Encounter Admission Attending Care Care Encounter Source Date/Time Date/Time Type Type Clinicians Facility Department ID 2021-01-30 2021-01-30 Emergency [place], [facility] [id number] 06:55:00 10:29:00 Vishal Bess 350.1.13.10 Branch 4.2.7.2.686 Munith [id number] 2021-01-29 2021-01-30 Emergency [facility], [facility] [id number] 21:35:00 01:50:00 Liana Bess 350.1.13.10 Branch 4.2.7.2.686 Munith [id number] 2020-11-18 2020-11-18 [facility]114 [id number] 00:00:00 00:00:00 Fidencio Bess 350.1.13.10 Branch 4.2.7.2.686 Professio [id number] nal 085 [facility] 2020-11-14 2020-11-14 [facility] 1.2.840.114 [id number] 00:00:00 00:00:00 Ramon Bess 350.1.13.10 Branch 4.2.7.2.686 Professio [id number] nal 059 [facility] 2020-10-16 2020-10-16 [facility] 1.2.840.114 [id number] 00:00:00 00:00:00 Fidencio Bess 350.1.13.10 Branch 4.2.7.2.686 Professio [id number] nal 085 [facility] 2020-10-01 2020-10-01 Treatment Roy, Cr 1.2.840.1 [id number] Methodi 15:27:18 16:08:34 Beny Richardson 88145.1.[address] 3.430.2.7 Hospit a .3.534271 l .8 2020-10-01 2020-10-01 Treatment Roy, Cr 1.2.840.1 [id number] Methodi 15:27:18 16:08:34 Beny Richardson 34001.1.[address] 3.430.2.7 Hospit a .3.534037 l .8 2020-10-01 2020-10-01 Travel 1.2.840.1 1.2.365.384 4247 [id number] Methodi 00:00:00 00:00:[address] 3.430.2.7 0.2.7.3.698 Ho spita .3.420134 084.8 l .8 2020-10-01 2020-10-01 Travel 1.2.840.1 1.2.542.429 8651 [id number] Methodi 00:00:00 00:00:[address] 3.430.2.7 0.2.7.3.698 Ho spita .3.235687 084.8 l .8 2020-09-19 2020-09-19 Treatment Roy, Cr 1.2.840.1 [id number] 2099 [id number] Methodi 14:47:22 16:15:02 Beny Richardson 91792.1.[address] 3.430.2.7 Hospit a .3.121440 l .8 2020-09-19 2020-09-19 Treatment Roy, Cr 1.2.840.1 [id number] Methodi 14:47:22 16:15:02 Beny Richardson 73058.1.[address] 3.430.2.7 Hospit a .3.734381 l .8 2020-09-19 2020-09-19 Travel 1.2.840.1 1.2.846.754 6457 [id number] Methodi 00:00:00 00:00:[address] 3.430.2.7 0.2.7.3.698 Ho spita .3.824386 084.8 l .8 2020-09-19 2020-09-19 Travel 1.2.840.1 1.2.178.626 4618 061049 Methodi 00:00:00 00:00:[address] 3.430.2.7 0.2.7.3.698 Ho spita .3.041524 084.8 l .8 2020-09-17 2020-09-17 Documentat Dylan, 1.2.840.1 [id number] 2 [id number] Methodi 00:00:00 00:00:[address]1.[address] 3.430.2.7 Hospit a .3.814494 l .8 2020-09-17 2020-09-17 Documentat Dylan, 1.2.840.1 [id number] 2 [id number] Methodi 00:00:00 00:00:[address]07[address]1.[address] 3.430.2.7 Hospit a .3.130441 l .8 2020-09-04 2020-09-04 Treatment Roy, Cr 1.2.840.1 [id number] Methodi 15:21:22 16:38:44 [address] Lomax 46362.1.[address] 3.430.2.7 Hospit a .3.713950 l .8 2020-09-04 2020-09-04 Treatment Roy, Cr 1.2.840.1 [id number] Methodi 15:21:22 16:38:[address] 3.430.2.7 Hospit a .3.412859 l .8 2020-09-04 2020-09-04 Plan of 1.2.840.1 [id number] 827130 4071 Methodi 00:00:00 00:00:[address] Documentat 3.430.2.7 Hos marian ion .3.043021 l .8 2020-09-04 2020-09-04 Travel 1.2.840.1 1.2.110.144 7257 810688 Methodi 00:00:00 00:00:[address] 3.430.2.7 0.2.7.3.698 Ho spita .3.218051 084.8 l .8 2020-09-04 2020-09-04 Plan of 1.2.840.1 [id number] 707085 5078 Methodi 00:00:00 00:00:[address] Documentat 3.430.2.7 Hos marian ion .3.172624 l .8 2020-09-04 2020-09-04 Travel 1.2.840.1 1.2.596.111 9923 039422 Methodi 00:00:00 00:00:[address] 3.430.2.7 0.2.7.3.698 Ho spita .3.200967 084.8 l .8 2020-08-28 2020-08-28 Treatment Roy, Cr 1.2.840.1 [id number] Methodi 13:52:33 16:45:[address] 3.430.2.7 Hospit a .3.525797 l .8 2020-08-28 2020-08-28 Treatment Roy, Cr 1.2.840.1 [id number] 2099 [id number] Methodi 13:52:33 16:45:52 [address] 3.430.2.7 Hospit a .3.956328 l .8 2020-08-28 2020-08-28 Travel 1.2.840.1 1.2.433.370 0832 772518 Methodi 00:00:00 00:00:[address] 3.430.2.7 0.2.7.3.698 Ho spita .3.059572 084.8 l .8 2020-08-28 2020-08-28 Plan of 1.2.840.1 [id number] 5276 Methodi 00:00:00 00:00:[address] Documentat 3.430.2.7 Hos marian ion .3.088159 l .8 2020-08-28 2020-08-28 Travel 1.2.840.1 1.2.152.891 2996 623240 Methodi 00:00:00 00:00:[address] 3.430.2.7 0.2.7.3.698 Ho spita .3.634362 084.8 l .8 2020-08-28 2020-08-28 Plan of 1.2.840.1 [id number] 533637 9635 Methodi 00:00:00 00:00:[address] Documentat 3.430.2.7 Hos marian ion .3.328040 l .8 2020-08-20 2020-08-20 Travel 1.2.840.1 1.2.350.792 0685 627424 Methodi 00:00:00 00:00:[address] 3.430.2.7 0.2.7.3.698 Ho spita .3.802490 084.8 l .8 2020-08-20 2020-08-20 Travel 1.2.840.1 1.2.829.319 2669 292728 Methodi 00:00:00 00:00:[address] 3.430.2.7 0.2.7.3.698 Ho spita .3.914409 084.8 l .8 2020-08-13 2020-08-13 Travel 1.2.840.1 1.2.031.735 0335 541113 Methodi 00:00:00 00:00:[address] 3.430.2.7 0.2.7.3.698 Ho spita .3.168570 084.8 l .8 2020-08-13 2020-08-13 Travel 1.2.840.1 1.2.243.711 0026 007334 Methodi 00:00:00 00:00:[address] 3.430.2.7 0.2.7.3.698 Ho spita .3.182783 084.8 l .8 2020-07-30 2020-07-30 Travel 1.2.840.1 1.2.019.560 6675 516046 Methodi 00:00:00 00:00:[address] 3.430.2.7 0.2.7.3.698 Ho spita .3.276680 084.8 l .8 2020-07-30 2020-07-30 Travel 1.2.840.1 1.2.926.854 6241 092303 Methodi 00:00:00 00:00:[address] 3.430.2.7 0.2.7.3.698 Ho spita .3.719019 084.8 l .8 2020-07-22 2020-07-22 Transcribe Roy, 1.2.840.1 [id number] 913 [id number] Methodi 00:00:00 00:00:[place] [address] 3.430.2.7 Hospit a .3.225494 l .8 2020-07-22 2020-07-22 Transcribe Roy, 1.2.840.1 [id number] 439 [id number] Methodi 00:00:00 00:00:[place] [address] 3.430.2.7 Hospit a .3.756384 l .8 2020-06-17 2020-06-17 Urgent [facility] 1.2.840.114 [id number] 18:48:25 19:08:25 Care [facility] 350.1.13.10 [place] 4.2.7.2.686 Professio [id number] nal 044 [facility] 2020-05-27 2020-05-27 [facility] 1.2.840.114 [id number] 33 16:58:39 17:55:24 Care [facility] 350.1.13.10 [place] 4.2.7.2.686 Professio [id number] nal 044 [address] [facility] Results This patient has no known results.
[2021-02-01] MEDS ORDERED: NA CHLORIDE 0.9% 1,000 ML ONE (20:56)
[2021-02-01] MEDS ORDERED: DIPHENHYDRAMINE 50 MG/ML VIAL ONE (20:56)
[2021-02-01] MEDS ORDERED: METHYLPREDNISOLONE 125 MG INJ ONE (20:56)
[2021-02-01] MEDS ORDERED: FAMOTIDINE 20 MG/2 ML VIAL IV ONE (20:57)
--- NOTE | 2021-02-01 23:22 | ER ---
Nurse's Notes [facility] Name: Janice Harry Age: 65 yrs Sex: Female : 1955 Arrival Date: 02/01/2021 Time: 19:18 Bed DX1 Private MD: Diagnosis: Urticaria, unspecified Presentation: 02/01 19:26 Chief complaint: EMS states: PT D/C FROM THIS ER THIS AM 2/2 SUBJECTIVE HIVES. PT bp CALLED EMS FOR SUBJECTIVE URTICARIA, "I JUST GAVE MYSELF AN EPI-PEN, NOW YOU HAVE TO TAKE ME TO THE ER.". Coronavirus screen: At this time, the client does not indicate any symptoms associated with coronavirus-19. Ebola Screen: No symptoms or risks identified at this time. Onset: The symptoms/episode began/occurred suddenly. Anaphylaxis evaluation, the patient reports or I have noted the following symptoms which indicate a significant risk of anaphylaxis: no signs or symptoms of anaphylaxis were noted no signs or symptoms of anaphylaxis were noted. Initial Sepsis Screen: Does the patient meet any 2 criteria? No. Patient's initial sepsis screen is negative. Does the patient have a suspected source of infection? No. Patient's initial sepsis screen is negative. Risk Assessment: Do you want to hurt yourself or someone else? Patient reports no desire to harm self or others. Onset of symptoms was February 01, 2021 at 17:45. 19:26 Method Of Arrival: EMS: [facility] bp 19:26 Acuity: HEBER 3 bp Triage Assessment: 19:30 General: Appears in no apparent distress. comfortable, obese, Behavior is cooperative, bp appropriate for age, agitated, anxious. Pain: Denies pain. EENT: No deficits noted. Neuro: No deficits noted. Cardiovascular: No deficits noted. Respiratory: No deficits noted. GI: No signs and/or symptoms were reported involving the gastrointestinal system. : No signs and/or symptoms were reported regarding the genitourinary system. Derm: No deficits noted. Musculoskeletal: No deficits noted. Historical: - Allergies: 19:30 Requip; bp 19:30 Tegretol; bp - Home Meds: 19:30 Coreg Oral [Active]; Clonazepam Oral [Active]; Zoloft Oral [Active]; Xanax Oral bp [Active]; Wellbutrin Oral [Active]; Lipitor Oral [Active]; - PMHx: 19:30 Anxiety; Depression; Hyperlipidemia; Hypertension; bp - Immunization history:: Adult Immunizations. - Social history:: Smoking status: Patient denies any tobacco usage or history of. Screenin:09 Abuse screen: Denies threats or abuse. Denies injuries from another. Nutritional lp1 screening: No deficits noted. Tuberculosis screening: No symptoms or risk factors identified. Fall Risk None identified. Assessment: 20:05 General: Appears in no apparent distress. Behavior is restless. Pain: Denies pain. lp1 Neuro: Level of Consciousness is awake, alert, obeys commands, Oriented to person, place, time, situation. Cardiovascular: Patient's skin is warm and dry. Respiratory: Airway is patent Respiratory effort is even, unlabored, Breath sounds are clear bilaterally. GI: Abdomen is obese. : No signs and/or symptoms were reported regarding the genitourinary system. EENT: No signs and/or symptoms were reported regarding the EENT system. Derm: Rash noted that is red, macerated areas to left. 21:15 Reassessment: Patient appears in no apparent distress at this time. Patient is alert, lp1 oriented x 3, equal unlabored respirations, skin warm/dry/pink. Patient states feeling better. Patient states symptoms have improved. Vital Signs: 19:26 BP 160 / 90; Pulse 80; Resp 16; Pulse Ox 98% ; bp 20:05 Temp 97.8(TE); Weight 99.79 kg (R); Height 5 ft. 8 in. (172.72 cm); lp1 21:00 BP 156 / 88; Pulse 83; Resp 18; Pulse Ox 96% on R/A; lp1 21:00 BP 151 / 77; Pulse 79; Resp 18; Pulse Ox 99% on R/A; lp1 22:52 BP 159 / 77; Pulse 78; Resp 18; Temp 98.7(O); Pulse Ox 98% on R/A; Pain 0/10; lp1 20:05 Body Mass Index 33.45 (99.79 kg, 172.72 cm) lp1 ED Course: 19:18 Patient arrived in ED. lp1 19:19 Alpa Miller RN is Primary Nurse. lp1 19:29 Triage completed. bp 19:30 Denton Palacio MD is Attending Physician. 7 19:33 Arm band placed on. bp 20:09 Patient has correct armband on for positive identification. Bed in low position. Pulse lp1 ox on. NIBP on. 20:25 Inserted saline lock: 22 gauge in left forearm, using aseptic technique. lp1 22:37 No provider procedures requiring assistance completed. lp1 23:20 Kaykay Newberry MD is Referral Physician. 7 23:20 Vasile Andre MD is Referral Physician. 7 23:32 IV discontinued, intact, bleeding controlled, No redness/swelling at site. Pressure em dressing applied. Administered Medications: 20:40 Drug: NS 0.9% 1000 ml Route: IV; Rate: 1000 ml; Site: left forearm; lp1 21:33 Follow up: IV Status: Completed infusion; IV Intake: 1000ml lp1 20:40 Drug: Benadryl (diphenhydrAMINE) 50 mg Route: IVP; Site: left forearm; lp1 21:33 Follow up: Response: No adverse reaction lp1 20:40 Drug: Pepcid (famotidine) 20 mg Route: IVP; Site: left forearm; lp1 21:33 Follow up: Response: No adverse reaction lp1 20:40 Drug: SOLU-Medrol (methylPrednisoLONE) 125 mg Route: IVP; Site: left forearm; lp1 21:34 Follow up: Response: No adverse reaction lp1 Intake: 21:33 IV: 1000ml; Total: 1000ml. lp1 Outcome: 23:21 Discharge ordered by . [facility] 23:32 Discharged to home ambulatory. em 23:32 Condition: improved 23:32 Discharge instructions given to patient, Instructed on discharge instructions, follow up and referral plans. medication usage, Demonstrated understanding of instructions, follow-up care, medications, Prescriptions given X 1. 23:40 Patient left the ED. em Signatures: Enrique Cook RN Alpa Collier RN RN [facility] Tony Rich RN RN bp Holmes, Maurice, MD MD [facility]
--- NOTE | 2021-02-01 23:22 | EDPHYS ---
Physician Documentation [facility] Name: Janice Harry Age: 65 yrs Sex: Female : 1955 Arrival Date: 02/01/2021 Time: 19:18 Bed DX1 Private MD: ED Physician Denton Palacio HPI: 02/01 19:25 This 65 yrs old Female presents to ER via EMS with complaints of Itching. mh7 19:25 The patient presents with itching, rash, of the chest, abdomen, right arm, left arm, mh7 right leg and left leg. Onset: The symptoms/episode began/occurred today. Associated signs and symptoms: Pertinent positives: hives, rash, Pertinent negatives: abdominal pain, Altered mental status chest pain, dysphagia, fever, headache, Light headed nausea, shortness of breath, swelling, Syncope vomiting. Possible causes: The patient has no known obvious cause for the symptoms. At home the patient or guardian has treated the symptoms with EpiPen. Severity of symptoms: At their worst the symptoms were moderate today, in the emergency department the symptoms have improved moderately. The patient has been recently seen at the [facility] Emergency Department, yesterday. Patient reports rash and itching today. She used her EpiPen although she denies any shortness of breath, tongue or throat swelling. She states she was treated here in the ED yesterday for similar issue and improved with Benadryl, Pepcid, and Solu-Medrol. She is unsure of any possible source of her rash and itching. She denies any change in soaps or detergents, new foods, new clothing, or recent travel. She denies any fever, cough, shortness of breath, chest pain, abdominal pain, vomiting.. Historical: - Allergies: 19:30 Requip; bp 19:30 Tegretol; bp - Home Meds: 19:30 Coreg Oral [Active]; Clonazepam Oral [Active]; Zoloft Oral [Active]; Xanax Oral bp [Active]; Wellbutrin Oral [Active]; Lipitor Oral [Active]; - PMHx: 19:30 Anxiety; Depression; Hyperlipidemia; Hypertension; bp - Immunization history:: Adult Immunizations. - Social history:: Smoking status: Patient denies any tobacco usage or history of. ROS: 19:25 Constitutional: Negative for fever, chills, and weight loss, Eyes: Negative for injury, mh7 pain, redness, and discharge, ENT: Negative for injury, pain, and discharge, Neck: Negative for injury, pain, and swelling, Cardiovascular: Negative for chest pain, palpitations, and edema, Respiratory: Negative for shortness of breath, cough, wheezing, and pleuritic chest pain, Abdomen/GI: Negative for abdominal pain, nausea, vomiting, diarrhea, and constipation, Back: Negative for injury and pain, : Negative for injury, bleeding, discharge, and swelling, MS/Extremity: Negative for injury and deformity, Neuro: Negative for headache, weakness, numbness, tingling, and seizure, Psych: Negative for depression, anxiety, suicide ideation, homicidal ideation, and hallucinations, Endocrine: Negative for neck swelling, polydipsia, polyuria, polyphagia, and marked weight changes, Hematologic/Lymphatic: Negative for swollen nodes, abnormal bleeding, and unusual bruising. Exam: 19:25 Constitutional: This is a well developed, well nourished patient who is awake, alert, mh7 and in no acute distress. 19:25 Head/Face: Normocephalic, atraumatic. Eyes: Pupils equal round and reactive to light, extra-ocular motions intact. Lids and lashes normal. Conjunctiva and sclera are non-icteric and not injected. Cornea within normal limits. Periorbital areas with no swelling, redness, or edema. ENT: Nares patent. No nasal discharge, no septal abnormalities noted. Tympanic membranes are normal and external auditory canals are clear. Oropharynx with no redness, swelling, or masses, exudates, or evidence of obstruction, uvula midline. Mucous membranes moist. Neck: Trachea midline, no thyromegaly or masses palpated, and no cervical lymphadenopathy. Supple, full range of motion without nuchal rigidity, or vertebral point tenderness. No Meningismus. Chest/axilla: Normal chest wall appearance and motion. Nontender with no deformity. No lesions are appreciated. Cardiovascular: Regular rate and rhythm with a normal S1 and S2. No gallops, murmurs, or rubs. Normal PMI, no JVD. No pulse deficits. Respiratory: Lungs have equal breath sounds bilaterally, clear to auscultation and percussion. No rales, rhonchi or wheezes noted. No increased work of breathing, no retractions or nasal flaring. Abdomen/GI: Soft, non-tender, with normal bowel sounds. No distension or tympany. No guarding or rebound. No evidence of tenderness throughout. Back: No spinal tenderness. No costovertebral tenderness. Full range of motion. 19:25 MS/ Extremity: Pulses equal, no cyanosis. Neurovascular intact. Full, normal range of motion. Neuro: Awake and alert, GCS 15, oriented to person, place, time, and situation. Cranial nerves II-XII grossly intact. Motor strength 5/5 in all extremities. Sensory grossly intact. Cerebellar exam normal. Normal gait. Psych: Awake, alert, with orientation to person, place and time. Behavior, mood, and affect are within normal limits. 19:25 Constitutional: The patient appears anxious. 19:25 Skin: urticaria, on the chest, abdomen, right arm, left arm, right leg and left leg. Vital Signs: 19:26 BP 160 / 90; Pulse 80; Resp 16; Pulse Ox 98% ; bp 20:05 Temp 97.8(TE); Weight 99.79 kg (R); Height 5 ft. 8 in. (172.72 cm); lp1 21:00 BP 156 / 88; Pulse 83; Resp 18; Pulse Ox 96% on R/A; lp1 21:00 BP 151 / 77; Pulse 79; Resp 18; Pulse Ox 99% on R/A; lp1 22:52 BP 159 / 77; Pulse 78; Resp 18; Temp 98.7(O); Pulse Ox 98% on R/A; Pain 0/10; lp1 20:05 Body Mass Index 33.45 (99.79 kg, 172.72 cm) lp1 MDM: 23:19 Differential diagnosis: anaphylaxis, non IgE mediated drug reaction urticaria. Data [facility] reviewed: vital signs, nurses notes, old medical records. Data interpreted: Pulse oximetry: on room air is 98 %. Interpretation: normal. Counseling: I had a detailed discussion with the patient and/or guardian regarding: the historical points, exam findings, and any diagnostic results supporting the discharge/admit diagnosis, the presence of at least one elevated blood pressure reading (>120/80) during this emergency department visit, the need for outpatient follow up, an allergy/family resource management specialist, a market president, to return to the emergency department if symptoms worsen or persist or if there are any questions or concerns that arise at home. Response to treatment: the patient's symptoms have resolved after treatment, the patient's blood pressure is in an acceptable range, mental status has returned to baseline, the patient no longer shows bradycardia, the patient is not short of breath, the patient is not tachycardic, the patient's pain is gone, the patient's temperature has normalized. 23:21 Patient medically screened. [facility] Administered Medications: 20:40 Drug: NS 0.9% 1000 ml Route: IV; Rate: 1000 ml; Site: left forearm; lp1 21:33 Follow up: IV Status: Completed infusion; IV Intake: 1000ml lp1 20:40 Drug: Benadryl (diphenhydrAMINE) 50 mg Route: IVP; Site: left forearm; lp1 21:33 Follow up: Response: No adverse reaction lp1 20:40 Drug: Pepcid (famotidine) 20 mg Route: IVP; Site: left forearm; lp1 21:33 Follow up: Response: No adverse reaction lp1 20:40 Drug: SOLU-Medrol (methylPrednisoLONE) 125 mg Route: IVP; Site: left forearm; lp1 21:34 Follow up: Response: No adverse reaction lp1 Disposition Summary: 02/01/21 23:21 Discharge Ordered Location: Home [facility] Problem: new [facility] Symptoms: have improved [facility] Condition: Stable [facility] Diagnosis - Urticaria, unspecified [facility] Followup: [facility] - With: Private Physician - When: 1 - 2 days - Reason: Worsening of condition, Recheck today's complaints, Continuance of care, Re-evaluation by your physician Followup: [facility] - With: Kaykay Newberry MD - When: 1 - 2 days - Reason: Worsening of condition, Recheck today's complaints Followup: [facility] - With: Vasile Andre MD - When: 1 - 2 days - Reason: Worsening of condition, Recheck today's complaints Discharge Instructions: - Discharge Summary Sheet [facility] - Hives, [id number] [facility] Forms: - Medication Reconciliation Form [facility] - Thank You Letter [facility] - Antibiotic Education [facility] - Prescription Opioid Use [facility] Prescriptions: - Benadryl 25 mg Oral Capsule - take 1 capsule by ORAL route every 6 hours As needed; 30 tablet; Refills: 0, 7 Product Selection Permitted - Pepcid 20 mg Oral Tablet - take 1 tablet by ORAL route every 12 hours for 5 days; 10 tablet; Refills: 0, 7 Product Selection Permitted - Medrol (Avel) 4 mg Oral Tablets, Dose Pack - take 1 tablet by ORAL route as directed - follow package instructions; 1 [facility] packet; Refills: 0, Product Selection Permitted Signatures: Alpa Miller RN RN lp1 Tony Rich RN RN bp Denton Palacio MD MD 7
[2021-02-01 23:52] VITALS: BP 159/77; TEMP 98.7; O2SAT 98
== END 2021-02-01 23:40 | disposition home or self-care (01) ==
LOC: ER 18:21
DX: L50.9 Urticaria, unspecified (principal); I10 Essential (primary) hypertension; F41.8 Other specified anxiety disorders; Z88.8 Allergy status to other drugs, medicaments and biological substances
CPT/HCPCS: 96361; 96375; 96374; 99284; J1200; J7030; J2930

== ENCOUNTER 2021-02-17 16:42 | Observation (INO) | payer OTHER ==
--- OUTSIDE RECORDS SUMMARY | 2021-02-17 16:47 | XMS REPORT | Continuity of Care Document ---
:1955 Author Organization [facility] t Address [address] [place] [address] Care Team Providers Name Role Phone Asked, Pcp Primary Care Physician Unavailable Laura AGUILAR, B Attending Clinician Radha PAC, S Attending Clinician Jessica VEGETABLE CANNER, G Attending Clinician Jayson RN, T Attending Clinician Unavailable Julio Cesar DIAZ Attending Clinician Stefano DIAZ Attending Clinician Shruti DIAZ, S Attending Clinician Esperanza CR Attending Clinician Ventura DIAZ, K.H. Attending Clinician Manuela DIAZ Attending Clinician Dylan HART Attending Clinician Unavailable Maria D [place] PT Attending Clinician Unavailable Jose DODSONP J Attending Clinician Nathen AGUILAR Attending Clinician Payers Payer Name Policy Type Policy Effective Expiration Source Number Date Date MANAGED MEDICARE [id number] 2021 Universi ty of PPO/FFS [place]IC[place] [facility] [place]/FFS Branch [id number] -PresentMedicare Adv PPO/FFS COMMERCIAL [id number] 2021 University of NON-CONTRACT 00:00:00 [place] [facility] l GENERICCOMMERCIAL Branch NON-CONTRACT [id number] -PresentHMO/PPO/POS DEVOTED HEALTHDEVOTED [id number] Met lópez [id number] 00:00:00 [facility] spital resentHMO Problems Condition Condition Condition Status Onset Resolution Last Treating Co mments Source Name Details Category Date Date Treatment Clinician Date Acute pain Acute pain Disease Active M ethodi of right of right 4 st shoulder shoulder 00:00: [facility] 00 l Fatty Fatty Disease Active Univers liver liver 2-25 ity of 00:00: [address] Branch Macular Macular Disease Active Univers degenerati degenerati 2-25 it y of on on 00:00: [address] Branch Vitamin D Vitamin D Disease Active Uni vers deficiency deficiency 2-25 it y of 00:00: [place] [address] Medical Branch Alopecia Alopecia Disease Active Overview: Un kizzy 2-25 Formattin ity of 00:00: g of this [place] 00 note Medical might be Branch different from the original. Has been seen by Jorge A gy. Allergic Allergic Disease Active Unive rs rhinitis rhinitis 2-25 ity of 00:00: [place] [address] Medical Branch B12 B12 Disease Active Univers deficiency deficiency 9-25 it y of 00:00: [place] [address] Medical Branch Stress Stress Disease Active Univers incontinen incontinen 9-25 it y of ce ce 00:00: [address] Branch HLD HLD Disease Active Univers (hyperlipi (hyperlipi 9-19 it y of demia) demia) 00:00: [place] [address] Medical Branch Chest pain Chest pain Disease Active U nivers 9-18 ity of 00:00: [place] [address] Medical Branch Vertigo Vertigo Disease Active Univers 8-12 ity of 00:00: [place] [address] Medical Branch SOB SOB Disease Active Univers (shortness (shortness 1-28 it y of of breath) of breath) [place] Dyspnea Dyspnea Disease Active 2015-06 Univers 2-16 ity of 00:00: [place] [address] Medical Branch Shortness Shortness Disease Active 2015-06 Uni vers of breath of breath -28 ity of 00:: Medical Branch Obesity Obesity Disease Active 2015-06 Univers (BMI (BMI 1-20 ity of 30-39.9) 30-39.9) 00:00: Medical Branch Acute Acute Disease Active 2015-06 [facility] respirator respirator 1-20 it y of [place] failure [place] failure [place] Shoulder Shoulder Disease Active Unive rs pain, pain, 3-07 ity of right right 00:00: Medical Branch Suicidal Suicidal Disease Active Unive rs ideations ideations 4 ity of 00:00: Medical Branch Hyponatrem Hyponatrem Disease Active U nivers ia ia 4 ity of 00:00: Medical Branch Cardiomyop Cardiomyop Disease Active U nivers athy athy ity of [facility] Allergies, Adverse Reactions, Alerts Allergy Allergy Status Severity Reaction(s) Onset Inactive Treating Comm ents Source Name Type Date Date Clinician Codeine Propensi Active Nausea Univers ty to and/or 02-15 ity of adverse Vomiting 00:00: [place] reaction 00 [facility] Ciproflo Propensi Active Itching Unive rs xacin ty to 8-12 ity of adverse 00:00: [place] reaction 00 [facility] Branch Shellfis Propensi Active Itching 2015-06 For Food Uni vers h ty to 1-21 Service ity of Derived adverse 00:00: Use - [place] reaction 00 Thank Medical you! Branch Sumatrip Propensi Active Anxiety Unive rs schneider ty to 3-07 ity of adverse 00:00: [place] reaction 00 [facility] Iodine Propensi Active Itching Univers And ty to 9-20 ity of Iodide adverse 00:00: [place] Containi reaction 00 Medica l ng s [place] Products Social History Social Habit Start Date Stop Date Quantity Comments Source Exposure to Not sure [facility] SARS-CoV-2 (event) [facility] Cigarettes smoked 2021-02-13 2021-02-13 Univers ity of current (pack per 00:00:00 00:00:00 ) - Reported Branch Cigarette 2021-02-13 2021-02-13 University of pack-years 00:00:00 00:00:00 [facility] Tobacco use and 2021-02-13 2021-02-13 Former user Universi ty of exposure 00:00:00 00:00:00 [facility] Alcohol intake 2021-02-13 2021-02-13 Current University 00:00:00 00:00:00 non-drinker of [facility] alcohol Branch (finding) History of tobacco 2012-09-26 User of Univer sity of use 00:00:00 smokeless [facility] tobacco [place] Sex Ass[birth year] [employer] 00:00:00 00:00:00 Hospital Smoking Status Start Date Stop Date Source Unknown if ever smoked [facility] Former smoker 2021-02-13 00:00:00 2021-02-13 00:00:00 [facility] Medications Ordered Filled Start Stop Current Ordering Indication Dosage Frequency Signature Comments Components Source Medication Medication Date Date Medication? Clinician (SIG) Name Name amoxicillin Yes 1{tbl} 1 tablet, Univers -clavulanat 02-14 Oral, ity of e 13:00: Q12H, [place] (AUGMENTIN) 00 First dose Me dical 875-125 mg on Wed per tablet 02/14/21 at 1 tablet 0800, Until Discontinu ed, Routine
Reason for Anti-Infec tive: Documented Infection< br>Documen [place] Infection Site: Respirator y
Durat ion of Therapy: Other (see Comments) dexamethaso No 10mg 10 mg, IV Univers ne 02-14 Push, ity of (DECADRON 06:30: 05:44 ONCE, 1 [place] PHOSPHATE[place] 00 :00 dose, Fri Medi dave injection 02/14/21 at Bran ch 10 mg 0130, STAT ipratropium 2020- No 3mL 3 mL, Univ ers -albuteroL 02-14 Inhalation it y of (DUONEB) 06:15: 05:07 , ONCE, 1 [place] 0.5 mg-3 00 :00 dose, Fri Medica l mg(2.5 mg 02/14/21 at Bran ch base)/3 mL 0115, nebulizer Routine solution 3 mL LORazepam No .5mg 0.5 mg, Univ ers (ATIVAN) 02-14 Oral, ity of tablet 0.5 05:00: 04:03 ONCE, 1 [place] mg 00 :00 dose, Fri Medical 02/14/21 at [place] 0000, MARK magnesium 2020- No 2g 2 g, IV Univ ers sulfate in 02-14 Piggyback, it y of water 2 03:15: 02:53 ONCE, 1 [place] gram/50 mL 00 :00 dose, Cathy Medi dave (4 %) 02/13/21 at [place] infusion 2 2215, g Routine methylPREDN 2020- No 60mg 60 mg, IV Univers ISolone sod 02-14 Piggyback, i ty of succ 03:15: 02:22 ONCE, 1 [place] (SOLU-MEDRO 00 :00 dose, Cathy Med ical L (PF)) 02/13/21 at Branch injection 2215, STAT 60 mg ipratropium 2020- No 6mL 6 mL, [facility] ers -albuteroL 02-14 Inhalation it y of (DUONEB) 03:15: 02:27 , ONCE, 1 [place] 0.5 mg-3 00 :00 dose, Cathy Medica l mg(2.5 mg 02/13/21 at [facility])/3 mL 2215, nebulizer Routine solution 6 mL NaCl 0.9% 2020- No 1000mL at 999 Uni vers (NS) bolus 02-14 mL/hr, ity of infusion 02:45: 04:00 1,000 mL, [place] as 1,000 mL 00 :00 IV Medical Piggyback, Branch ONCE, 1 dose, Cathy 02/13/21 at 2145, STAT amoxicillin 2020- Yes [id number] 1{tbl} Take 1 Univers -clavulanat 02-14 tablet by ity of e 875-125 00:00: mouth [place] mg per 00 every 12 Medical tablet (twelve) Branch hours. iopamidol 2020- No [id number] 100mL 100 mL, Univers (ISOVUE 02-13 Intravenou ity o f 370-500 mL) 11:30: 10:26 s, ONCE, 1 [place] injection 00 :00 dose, Cathy Medic al 100 mL 02/13/21 at Branch 0630, Routine diphenhydrA 2020- No 25mg 25 mg, Uni vers MINE 02-13 Slow IV ity of (BENADRYL) 08:30: 08:07 Push, [place] injection 00 :00 ONCE, 1 Medical 25 mg dose, [facility] Branch 02/13/21 at 0330, STAT methylpredn 2020- No 125mg 125 mg, U nivers isolone sod 02-13 Slow IV ity of succ 07:15: 06:39 Push, [place] (SOLU-MEDRO 00 :00 ONCE, 1 Medic al L) dose, [facility] injection 02/13/21 at 125 mg 0215, STAT ipratropium 2020- No 3mL 3 mL, Univ ers -albuteroL 02-13 Inhalation it y of (DUONEB) 07:15: 06:27 , ONCE [place] 0.5 mg-3 00 :00 NOW, 1 Medical mg(2.5 mg dose, [facility] h base)/3 mL 02/13/21 at nebulizer 0215, solution 3 Routine mL diphenhydrA No 25mg 25 mg, Uni vers [facility] 02-13 Slow IV ity of (BENADRYL) 06:45: 07:00 [place], [place] injection 00 :00 ONCE, 1 Medical 25 mg dose, [facility] 02/13/21 at 0200, STAT guaiFENesin 2020-0 Yes [id number] 400mg Take 1 Univers 400 mg 8-24 tablet by ity of tablet 00:00: mouth [place] 00 every 4 Medical (four) Branch hours as needed for Cough. benzonatate 2020-0 Yes [id number] 200mg Take 2 Univers 100 mg 8-24 capsules ity of capsule 00:00: [place] mouth 2 [place] 00 (two) Medical times Branch daily as needed for Cough. guaiFENesin 2020-0 Yes [id number] 400mg Take 1 Univers 400 mg 8-24 tablet by ity of tablet 00:00: mouth [place] 00 every 4 Medical (four) Branch hours as needed for Cough. benzonatate 2020-0 Yes [id number] 200mg Take 2 Univers 100 mg 8-24 capsules ity of capsule 00:00: [place] mouth 2 [place] 00 (two) Medical times Branch daily as needed for Cough. guaiFENesin 2020-0 Yes [id number] 400mg Take 1 Univers 400 mg 8-24 tablet by ity of tablet 00:00: mouth [place] 00 every 4 Medical (four) Branch hours as needed for Cough. benzonatate 2020-0 Yes [id number] 200mg Take 2 Univers 100 mg 8-24 capsules ity of capsule 00:00: [place] mouth 2 [place] 00 (two) Medical times Branch daily as needed for Cough. guaiFENesin 2020-0 Yes [id number] 400mg Take 1 Univers 400 mg 8-24 tablet by ity of tablet 00:00: mouth [place] 00 every 4 Medical (four) Branch hours as needed for Cough. benzonatate 2020-0 Yes [id number] 200mg Take 2 Univers 100 mg 8-24 capsules ity of capsule 00:00: [place] mouth 2 [place] 00 (two) Medical times Branch daily as needed for Cough. cephALEXin 0 2020- Yes [id number] 500mg Take 1 Univers (KEFLEX) 8-24 08-29 capsule by ity of 500 mg 00:00: 04:59 mouth 4 [place] capsule 00 :00 (four) Medical times Branch daily for 4 days. cephALEXin 2020-0 2020- Yes [id number] 500mg Take 1 Univers (KEFLEX) 8-24 08-29 capsule by ity of 500 mg 00:00: 04:59 mouth 4 [place] capsule 00 :00 (four) Medical times Branch daily for 4 days. cephALEXin 0 2020- Yes [id number] 500mg Take 1 Univers (KEFLEX) 8-24 08-29 capsule by ity of 500 mg 00:00: 04:59 mouth 4 [place] capsule 00 :00 (four) Medical times Branch daily for 4 days. cephALEXin 2020-0 2020- Yes [id number] 500mg Take 1 Univers (KEFLEX) 8-24 08-29 capsule by ity of 500 mg 00:00: 04:59 mouth 4 [place] capsule 00 :00 (four) Medical times Branch daily for 4 days. cetirizine Yes [id number] 10mg Take 1 U nivers (ZYRTEC) 10 8-20 tablet by ity of mg tablet 00:00: mouth [place] 00 daily. Medical Branch famotidine Yes [id number] 40mg Take 1 U nivers 40 mg 8-20 tablet by ity of tablet 00:00: mouth 2 [place] 00 (two) Medical times Branch daily. montelukast Yes [id number] 10mg Take 1 Univers 10 mg 8-20 tablet by ity of tablet 00:00: mouth [place] 00 daily. Medical Branch cetirizine Yes [id number] 10mg Take 1 U nivers (ZYRTEC) 10 8-20 tablet by ity of mg tablet 00:00: mouth [place] 00 daily. Medical Branch famotidine Yes [id number] 40mg Take 1 U nivers 40 mg 8-20 tablet by ity of tablet 00:00: mouth 2 00 (two) Medical times Branch daily. montelukast Yes [id number] 10mg Take 1 Univers 10 mg 8-20 tablet by ity of tablet 00:00: mouth [place] 00 daily. Medical Branch cetirizine Yes [id number] 10mg Take 1 U nivers (ZYRTEC) 10 8-20 tablet by ity of mg tablet 00:00: mouth [place] 00 daily. Medical Branch famotidine Yes [id number] 40mg Take 1 U nivers 40 mg 8-20 tablet by ity of tablet 00:00: mouth 2 00 (two) Medical times Branch daily. montelukast Yes [id number] 10mg Take 1 Univers 10 mg 8-20 tablet by ity of tablet 00:00: mouth [place] 00 daily. Medical Branch cetirizine Yes [id number] 10mg Take 1 U nivers (ZYRTEC) 10 8-20 tablet by ity of mg tablet 00:00: mouth [place] 00 daily. Medical Branch famotidine Yes [id number] 40mg Take 1 U nivers 40 mg 8-20 tablet by ity of tablet 00:00: mouth 2 [place] 00 (two) Medical times Branch daily. montelukast Yes [id number] 10mg Take 1 Univers 10 mg 8-20 tablet by ity of tablet 00:00: mouth [place] 00 daily. Medical Branch predniSONE 2020- Yes [id number] 40mg Take 2 Univers 20 mg 8-20 08-28 tablets by ity of tablet 00:00: 04:59 mouth [place] 00 :00 daily for Medical 7 days. Branch predniSONE 2020- Yes [id number] 40mg Take 2 Univers 20 mg 8-20 08-28 tablets by ity of tablet 00:00: 04:59 mouth [place] 00 :00 daily for Medical 7 days. Branch predniSONE 2020- Yes [id number] 40mg Take 2 Univers 20 mg 8-20 08-28 tablets by ity of tablet 00:00: 04:59 mouth [place] 00 :00 daily for Medical 7 days. Branch predniSONE 2020- Yes [id number] 40mg Take 2 Univers 20 mg 8-20 08-28 tablets by ity of tablet 00:00: 04:59 mouth [place] 00 :00 daily for Medical 7 days. Branch albuterol-i Yes [id number] 1{puff} Inhale 1 Univers pratropium 8-19 Puff every ity of (COMBIVENT 00:00: 6 (six) [place] RESPIMAT) 00 hours. Medical 20-100 Need Branch mcg/actuati appointmen on inhaler t for more refills. albuterol-i Yes [id number] 1{puff} Inhale 1 Univers pratropium 8-19 Puff every ity of (COMBIVENT 00:00: 6 (six) [place] RESPIMAT) 00 hours. Medical 20-100 Need Branch mcg/actuati appointmen on inhaler t for more refills. albuterol-i Yes [id number] 1{puff} Inhale 1 Univers pratropium 8-19 Puff every ity of (COMBIVENT 00:00: 6 (six) [place] RESPIMAT) 00 hours. Medical 20-100 Need Branch mcg/actuati appointmen on inhaler t for more refills. albuterol-i Yes [id number] 1{puff} Inhale 1 Univers pratropium 8-19 Puff every ity of (COMBIVENT 00:00: 6 (six) [place] RESPIMAT) 00 hours. Medical 20-100 Need Branch mcg/actuati appointmen on inhaler t for more refills. hydrOXYzine 2020-0 Yes [id number] 10mg Take 1 Univers 10 mg 8-17 tablet by ity of tablet 00:00: mouth [place] 00 every 6 Medical (six) Branch hours as needed for Itching. hydrOXYzine 2020-0 Yes [id number] 10mg Take 1 Univers 10 mg 8-17 tablet by ity of tablet 00:00: mouth [place] 00 every 6 Medical (six) Branch hours as needed for Itching. hydrOXYzine 2020-0 Yes [id number] 10mg Take 1 Univers 10 mg 8-17 tablet by ity of tablet 00:00: mouth [place] 00 every 6 Medical (six) Branch hours as needed for Itching. hydrOXYzine 2020-0 Yes [id number] 10mg Take 1 Univers 10 mg 8-17 tablet by ity of tablet 00:00: mouth [place] 00 every 6 Medical (six) Branch hours as needed for Itching. traMADoL 0 Yes [id number] 50mg Take 1 Univers (ULTRAM) 50 8-12 tablet by ity of mg tablet 00:00: mouth [place] 00 every 6 Medical (six) Branch hours as needed for Pain (scale 7-10). Indication s: acute pain predniSONE 2020-0 Yes [id number] TAKE ONE Univers 20 mg 8-12 [id number] TABLET BY ity of tablet 00:00: MOUTH [place] 00 DAILY Medical Branch famotidine 2020-0 Yes [id number] 20mg Take 1 Univers 20 mg 8-12 tablet by ity of tablet 00:00: mouth 2 [place] 00 (two) Medical times Branch daily. traMADoL 2020-0 Yes [id number] 50mg Take 1 Univers (ULTRAM) 50 8-12 tablet by ity of mg tablet 00:00: mouth [place] 00 every 6 Medical (six) Branch hours as needed for Pain (scale 7-10). Indication s: acute pain predniSONE 2020-0 Yes [id number] TAKE ONE Univers 20 mg 8-12 [id number] TABLET BY ity of tablet 00:00: MOUTH [place] 00 DAILY Medical Branch famotidine 2020-0 Yes [id number] 20mg Take 1 Univers 20 mg 8-12 tablet by ity of tablet 00:00: mouth 2 [place] 00 (two) Medical times Branch daily. traMADoL 2020-0 Yes [id number] 50mg Take 1 Univers (ULTRAM) 50 8-12 tablet by ity of mg tablet 00:00: mouth 00 every 6 Medical (six) Branch hours as needed for Pain (scale 7-10). Indication s: acute pain predniSONE 2020-0 Yes [id number] TAKE ONE Univers 20 mg 8-12 [id number] TABLET BY ity of tablet 00:00: MOUTH 00 DAILY Medical Branch famotidine 2020-0 Yes [id number] 20mg Take 1 Univers 20 mg 8-12 tablet by ity of tablet 00:00: mouth 2 00 (two) Medical times Branch daily. traMADoL 2020-0 Yes [id number] 50mg Take 1 Univers (ULTRAM) 50 8-12 tablet by ity of mg tablet 00:00: mouth [place] 00 every 6 Medical (six) Branch hours as needed for Pain (scale 7-10). Indication s: acute pain predniSONE 2020-0 Yes [id number] TAKE ONE Univers 20 mg 8-12 [id number] TABLET BY ity of tablet 00:00: MOUTH 00 DAILY Medical Branch famotidine 2020-0 Yes [id number] 20mg Take 1 Univers 20 mg 8-12 tablet by ity of tablet 00:00: mouth 2 (two) Medical times Branch daily. cephALEXin 2020- No [id number] 500mg Take 1 Univers (KEFLEX) 01-3024 [id number] capsule by it y of 500 mg 00:00: 00:00 mouth 4 [place] capsule 00 :00 (four) Medical times Branch daily. EPINEPHrine 2020-0 Yes Univer s 0.15 mg/0.3 8-05 ity of mL 00:00: [place] injection 00 Medical Branch proMETHazin 2020-0 Yes Univer s e 12.5 mg 8-05 ity of tablet 00:00: Medical Branch EPINEPHrine 2020-0 Yes Univer s 0.15 mg/0.3 8-05 ity of mL 00:00: [place] injection Medical Branch proMETHazin 2020-0 Yes Univer s e 12.5 mg 8-05 ity of tablet 00:00: Medical Branch EPINEPHrine 2020-0 Yes Univer s 0.15 mg/0.3 8-05 ity of mL 00:00: [place] injection 00 Medical Branch proMETHazin 2020-0 Yes Univer s e 12.5 mg 8-05 ity of tablet 00:00: [place] [address] Medical Branch EPINEPHrine 1-0 Yes Univer s 0.15 mg/0.3 8-05 ity of mL 00:00: [place] injection 00 Medical Branch proMETHazin 2020-0 Yes Univer s e 12.5 mg 8-05 ity of tablet 00:00: [place] Medical Branch mirtazapine 2020-0 Yes Univer s 7.5 mg 7-29 ity of tablet 00:00: [place] [address] Medical Branch omeprazole 2020-0 Yes Univers 40 mg 7-29 ity of capsule 00:00: [place] [address] Medical Branch mirtazapine 2020-0 Yes Univer s 7.5 mg 7-29 ity of tablet 00:00: [place] [address] Medical Branch omeprazole 2020-0 Yes Univers 40 mg 7-29 ity of capsule 00:00: [place] [address] Medical Branch mirtazapine 2020-0 Yes Univer s 7.5 mg 7-29 ity of tablet 00:00: [place] [address] Medical Branch omeprazole 1-0 Yes Univers 40 mg 7-29 ity of capsule 00:00: [place] [address] Medical Branch mirtazapine 2020-0 Yes Univer s 7.5 mg 7-29 ity of tablet 00:00: [place] [address] Medical Branch omeprazole 1-0 Yes Univers 40 mg 7-29 ity of capsule 00:00: [place] [address] Medical Branch cyclobenzap 1-0 Yes Univer s rine 10 mg 7-27 ity of tablet 00:00: [place] Medical Branch cyclobenzap 1-0 Yes Univer s rine 10 mg 7-27 ity of tablet 00:00: [place] [address] Medical Branch cyclobenzap 1-0 Yes Univer s rine 10 mg 7-27 ity of tablet 00:00: [place] [address] Medical Branch cyclobenzap 2021-0 Yes Univer s rine 10 mg 7-27 ity of tablet 00:00: [place] [address] Medical Branch doxepin 100 1-0 Yes Univer s mg capsule 7-19 ity of 00:00: [place] [address] Medical Branch doxepin 100 1-0 Yes Univer s mg capsule 7-19 ity of 00:00: [place] [address] Medical Branch doxepin 100 2021-0 Yes Univer s mg capsule 7-19 ity of 00:00: [place] [facility] doxepin 100 2020-0 Yes Univer s mg capsule 7-19 ity of 00:00: [place] [facility] Branch BELSOMRA 20 2020-0 Yes Univer s mg Tab 6-25 ity of 00:00: [place] [facility] Branch BELSOMRA 20 2020-0 Yes Univer s mg Tab 6-25 ity of 00:00: [place] [facility] Branch BELSOMRA 20 2020-0 Yes Univer s mg Tab 6-25 ity of 00:00: [place] Medical Branch BELSOMRA 20 2020-0 Yes Univer s mg Tab 6-25 ity of 00:00: [place] Medical Branch oxyCODONE-a 0 Yes Univer s cetaminophe 6-24 ity of n 10-325 mg 00:00: [place] per tablet 00 Medical Branch oxyCODONE-a 0 Yes Univer s cetaminophe 6-24 ity of n 10-325 mg 00:00: [place] per tablet 00 Medical Branch oxyCODONE-a 0 Yes Univer s cetaminophe 6-24 ity of n 10-325 mg 00:00: [place] per tablet 00 Medical Branch oxyCODONE-a 0 Yes Univer s cetaminophe 6-24 ity of n 10-325 mg 00:00: [place] per tablet 00 Medical Branch CARVEDILOL 0 Yes [id number] TAKE ONE Univers 6.25 mg 5-27 TABLET BY ity of tablet 00:00: MOUTH 00 TWICE A Medical DAY WITH Branch MEALS FOR 90 DAYS CARVEDILOL 0 Yes [id number] TAKE ONE Univers 6.25 mg 5-27 TABLET BY ity of tablet 00:00: MOUTH 00 TWICE A Medical DAY WITH Branch MEALS FOR 90 DAYS CARVEDILOL 0 Yes [id number] TAKE ONE Univers 6.25 mg 5-27 TABLET BY ity of tablet 00:00: MOUTH 00 TWICE A Medical DAY WITH Branch MEALS FOR 90 DAYS CARVEDILOL 0 Yes [id number] TAKE ONE Univers 6.25 mg 5-27 TABLET BY ity of tablet 00:00: MOUTH [place] 00 TWICE A Medical DAY WITH Branch MEALS FOR 90 DAYS methylPREDN 2019-06 Yes [id number] Take by [facility] [place] ISolone 07-2806 mouth ity of (MEDROL, 00:00: SEE-INSTRU [place] as NINI,) 4 mg 00 CTIONS. Medica l tablets follow Branch package directions cetirizine 2019-06 Yes [id number] 10mg Take 1 U nivers 10 mg 2-07 tablet by ity of tablet 00:00: mouth [place] 00 daily. Medical Branch methylPREDN 2019-06 Yes [id number] Take by [facility] [place] ISolone 07-28 9106 mouth ity of (MEDROL, 00:00: SEE-INSTRU [place] as NINI,) 4 mg 00 CTIONS. Medica l tablets follow Branch package directions cetirizine 2019-06 Yes [id number] 10mg Take 1 U nivers 10 mg 2-07 tablet by ity of tablet 00:00: mouth [place] 00 daily. Medical Branch methylPREDN 2019-06 Yes [id number] Take by [facility] [place] ISolone 07-28 9106 mouth ity of (MEDROL, 00:00: SEE-INSTRU [place] as NINI,) 4 mg 00 CTIONS. Medica l tablets follow Branch package directions cetirizine 2019-06 Yes [id number] 10mg Take 1 U nivers 10 mg 2-07 tablet by ity of tablet 00:00: mouth [place] 00 daily. Medical Branch methylPREDN 2019-06 Yes [id number] Take by [facility] [place] ISolone 07-2806 mouth ity of (MEDROL, 00:00: SEE-INSTRU [place] NINI,) 4 mg 00 CTIONS. Medica l tablets follow Branch package directions cetirizine 2019-06 Yes [id number] 10mg Take 1 U nivers 10 mg 2-07 tablet by ity of tablet 00:00: mouth [place] 00 daily. Medical Branch benzonatate 2019-06- No [id number] 100mg Take 1 Univers (TESSALON 2 08-24 capsule by ity of DAVID) 100 00:00: 00:00 mouth 3 [place] mg capsule 00 :00 (three) Medica l times Branch daily as needed for Cough. budesonide- 0 Yes [id number] 2{puff} Inhale 2 Univers formoteroL 8 [id number] Puffs 2 ity of (SYMBICORT) 00:00: (two) [place] 160-4.5 00 times Medical mcg/actuati daily. Branch on inhaler budesonide- 2020-0 Yes [id number] 2{puff} Inhale 2 Univers formoteroL 8-21 [id number] Puffs 2 ity of (SYMBICORT) 00:00: (two) [place] 160-4.5 00 times Medical mcg/actuati daily. Branch on inhaler budesonide- 2020-0 Yes [id number] 2{puff} Inhale 2 Univers formoteroL 8-21 [id number] Puffs 2 ity of (SYMBICORT) 00:00: (two) [place] 160-4.5 00 times Medical mcg/actuati daily. Branch on inhaler budesonide- 2020-0 Yes [id number] 2{puff} Inhale 2 Univers formoteroL 8-21 [id number] Puffs 2 ity of (SYMBICORT) 00:00: (two) [place] 160-4.5 00 times Medical mcg/actuati daily. Branch on inhaler clonazePAM 2020-0 Yes 1mg Take 1 mg Un kizzy (KLONOPIN) 5-20 by mouth ity o f 1 mg tablet 14:46: daily. [address] vit A/vit 2020-0 Yes Take by [facility] ers C/vit 5-20 mouth. ity of E/zinc/donell 14:46: [facility] [place] ([place] [address] Medical AREDS ORAL) Branch clonazePAM 2020-0 Yes 1mg Take 1 mg Un kizzy (KLONOPIN) 5-20 by mouth ity o f 1 mg tablet 14:46: daily. [address] vit A/vit 2020-0 Yes Take by [facility] ers C/vit 5-20 mouth. ity of E/zinc/donell 14:46: [facility] [place] ([place] [address] Medical AREDS ORAL) Branch clonazePAM 2020-0 Yes 1mg Take 1 mg Un kizzy (KLONOPIN) 5-20 by mouth ity o f 1 mg tablet 14:46: daily. [address] vit A/vit 2020-0 Yes Take by [facility] ers C/vit 5-20 mouth. ity of E/zinc/donell 14:46: [facility] [place] ([place] [address] Medical AREDS ORAL) Branch clonazePAM 2020-0 Yes 1mg Take 1 mg Un kizzy (KLONOPIN) 5-20 by mouth ity o f 1 mg tablet 14:46: [place]. [place] Branch vit A/vit Yes Take by [facility] ers C/vit 5-20 mouth. ity of E/zinc/donell 14:46: [place] [facility] (ICAPS 52 Medical AREDS ORAL) Branch benzonatate 2020- No [id number] 100mg Take 1 Univers (TESSALON 5-20 08-24 capsule by ity of DAVID) 100 00:00: 00:00 mouth 3 [place] capsule 00 :00 (three) Medica l times Branch daily as needed for Cough. budesonide- Yes [id number] 2{puff} Inhale 2 Univers formoteroL 5-12 Puffs 2 ity of (SYMBICORT) 00:00: (two) [place] 160-4.5 00 times Medical mcg/actuati daily. Branch on inhaler budesonide- Yes [id number] 2{puff} Inhale 2 Univers formoteroL 5-12 Puffs 2 ity of (SYMBICORT) 00:00: (two) [place] 160-4.5 00 times Medical mcg/actuati daily. Branch on inhaler budesonide- Yes [id number] 2{puff} Inhale 2 Univers formoteroL 5-12 Puffs 2 ity of (SYMBICORT) 00:00: (two) [place] 160-4.5 00 times Medical mcg/actuati daily. Branch on inhaler budesonide- Yes [id number] 2{puff} Inhale 2 Univers formoteroL 5-12 Puffs 2 ity of (SYMBICORT) 00:00: (two) [place] 160-4.5 00 times Medical mcg/actuati daily. Branch on inhaler albuterol Yes [id number] 2{puff} Inhale 2 Univers 90 4-03 Puffs ity of mcg/actuati 00:00: every 6 [place] as on inhaler 00 (six) Medical hours as Branch needed for Wheezing or Shortness of Breath. albuterol Yes [id number] 2{puff} Inhale 2 Univers 90 4-03 Puffs ity of mcg/actuati 00:00: every 6 [place] as on inhaler 00 (six) Medical hours as Branch needed for Wheezing or Shortness of Breath. albuterol 2019- Yes [id number] 2{puff} Inhale 2 Univers 90 4-03 Puffs ity of mcg/actuati 00:00: every 6 [place] as on inhaler 00 (six) Medical hours as Branch needed for Wheezing or Shortness of Breath. albuterol 0 Yes [id number] 2{puff} Inhale 2 Univers 90 4-03 Puffs ity of mcg/actuati 00:00: every 6 [place] as on inhaler 00 (six) Medical hours as Branch needed for Wheezing or Shortness of Breath. traMADol 50 2018- Yes [id number] 50mg Take 1 U nivers mg tablet 9-16 tablet by ity o f 00:00: mouth [place] 00 every 6 Medical (six) Branch hours as needed for Pain (scale 4-6). ibuprofen 2018- Yes [id number] 800mg Take 1 Un kizzy 800 mg 9-16 tablet by ity of tablet 00:00: mouth 3 (three) Medical times Branch daily with meals. ranitidine 2018-0 Yes [id number] 150mg Take 1 U nivers 150 mg 9-16 tablet by ity of tablet 00:00: mouth 2 (two) Medical times Branch daily. traMADol 50 2018-0 Yes [id number] 50mg Take 1 U nivers mg tablet 9-16 tablet by ity o f 00:00: mouth [place] 00 every 6 Medical (six) Branch hours as needed for Pain (scale 4-6). ibuprofen 2018-0 Yes [id number] 800mg Take 1 Un kizzy 800 mg 9-16 tablet by ity of tablet 00:00: mouth 3 [place] 00 (three) Medical times Branch daily with meals. ranitidine 2019-0 Yes [id number] 150mg Take 1 U nivers 150 mg 9-16 tablet by ity of tablet 00:00: mouth 2 (two) Medical times Branch daily. traMADol 50 2018-0 Yes [id number] 50mg Take 1 U nivers mg tablet 9-16 tablet by ity o f 00:00: mouth [place] 00 every 6 Medical (six) Branch hours as needed for Pain (scale 4-6). ibuprofen 2018-0 Yes [id number] 800mg Take 1 Un kizzy 800 mg 9-16 tablet by ity of tablet 00:00: mouth 3 [place] 00 (three) Medical times Branch daily with meals. ranitidine Yes [id number] 150mg Take 1 U nivers 150 mg 9-16 tablet by ity of tablet 00:00: mouth 2 [place] 00 (two) Medical times Branch daily. traMADol 50 Yes [id number] 50mg Take 1 U nivers mg tablet 9-16 tablet by ity o f 00:00: mouth [place] 00 every 6 Medical (six) Branch hours as needed for Pain (scale 4-6). ibuprofen Yes [id number] 800mg Take 1 Un kizzy 800 mg 9-16 tablet by ity of tablet 00:00: mouth 3 00 (three) Medical times Branch daily with meals. ranitidine Yes [id number] 150mg Take 1 U nivers 150 mg 9-16 tablet by ity of tablet 00:00: mouth 2 [place] 00 (two) Medical times Branch daily. cetirizine Yes [id number] 10mg Take 1 U nivers 10 mg 9-13 tablet by ity of tablet 00:00: mouth [place] 00 daily. Medical Branch cetirizine Yes [id number] 10mg Take 1 U nivers 10 mg 9-13 tablet by ity of tablet 00:00: mouth [place] 00 daily. Medical Branch cetirizine Yes [id number] 10mg Take 1 U nivers 10 mg 9-13 tablet by ity of tablet 00:00: mouth [place] 00 daily. Medical Branch cetirizine Yes [id number] 10mg Take 1 U nivers 10 mg 9-13 tablet by ity of tablet 00:00: mouth [place] 00 daily. Medical Branch dextroamphe Yes TAKE 1 Univ ers tamine-amph 8-15 TABLET BY ity of etamine 20 00:00: MOUTH [place] mg tablet 00 TWICE Medical DAILY . Branch FIRST DOSE IN THE MORNING dextroamphe Yes TAKE 1 Univ ers tamine-amph 8-15 TABLET BY ity of etamine 20 00:00: MOUTH [place] mg tablet 00 TWICE Medical DAILY . Branch FIRST DOSE IN THE MORNING dextroamphe Yes TAKE 1 Univ ers tamine-amph 8-15 TABLET BY ity of etamine 20 00:00: MOUTH [place] mg tablet 00 TWICE Medical DAILY . Branch FIRST DOSE IN THE MORNING dextroamphe Yes TAKE 1 Univ ers tamine-amph 8-15 TABLET BY ity of etamine 20 00:00: MOUTH [place] mg tablet 00 TWICE Medical DAILY . Branch FIRST DOSE IN THE MORNING fluticasone Yes [id number] 2{spray Use 2 Univers 50 5-08 } Sprays in ity of mcg/actuati 00:00: each [place] on nasal 00 nostril 2 Medica l spray (two) Branch times daily. montelukast Yes [id number] 10mg Take 1 Univers 10 mg 5-08 tablet by ity of tablet 00:00: mouth [place] 00 daily. Medical Branch fluticasone Yes [id number] 2{spray Use 2 Univers 50 5-08 } Sprays in ity of mcg/actuati 00:00: each [place] on nasal 00 nostril 2 Medica l spray (two) Branch times daily. montelukast Yes [id number] 10mg Take 1 Univers 10 mg 5-08 tablet by ity of tablet 00:00: mouth [place] 00 daily. Medical Branch fluticasone Yes [id number] 2{spray Use 2 Univers 50 5-08 } Sprays in ity of mcg/actuati 00:00: each [place] on nasal 00 nostril 2 Medica l spray (two) Branch times daily. montelukast Yes [id number] 10mg Take 1 Univers 10 mg 5-08 tablet by ity of tablet 00:00: mouth [place] 00 daily. Medical Branch fluticasone Yes [id number] 2{spray Use 2 Univers 50 5-08 } Sprays in ity of mcg/actuati 00:00: each [place] on nasal 00 nostril 2 Medica l spray (two) Branch times daily. montelukast Yes [id number] 10mg Take 1 Univers 10 mg 5-08 tablet by ity of tablet 00:00: mouth [place] 00 daily. Medical Branch Cholecalcif Yes [id number] 5000U Take 1 Univers maribel, 2-25 tablet by ity of Vitamin D3, 00:00: mouth [place] (VITAMIN 00 daily. Medical D3) 5,000 Take with Branc h unit tablet food. Cholecalcif Yes [id number] 5000U Take 1 [facility] maribel, 2-25 tablet by ity of Vitamin D3, 00:00: mouth [place] (VITAMIN 00 daily. Medical D3) 5,000 Take with Branc h unit tablet food. Cholecalcif Yes [id number] 5000U Take 1 [facility] maribel, 2-25 tablet by ity of Vitamin D3, 00:00: mouth [place] (VITAMIN 00 daily. Medical D3) 5,000 Take with Branc h unit tablet food. Cholecalcif Yes [id number] 5000U Take 1 [facility] maribel, 2-25 tablet by ity of Vitamin D3, 00:00: mouth [place] (VITAMIN 00 daily. Medical D3) 5,000 Take with Branc h unit tablet food. buPROPion Yes 1{tbl} Take 1 Univ ers XL 150 mg 2-22 tablet by ity o f 24 hr 00:00: mouth [place] tablet 00 daily. Medical Branch buPROPion Yes 1{tbl} Take 1 Univ ers XL 150 mg 2-22 tablet by ity o f 24 hr 00:00: mouth [place] tablet 00 daily. Medical Branch buPROPion Yes 1{tbl} Take 1 Univ ers XL 150 mg 2-22 tablet by ity o f 24 hr 00:00: mouth [place] tablet 00 daily. Medical Branch buPROPion Yes 1{tbl} Take 1 Univ ers XL 150 mg 2-22 tablet by ity o f 24 hr 00:00: mouth [place] tablet 00 daily. Medical Branch SERTraline 2018-0 Yes 100mg Take 100 Un kizzy 100 mg 9-26 mg by ity of tablet 00:00: mouth 2 (two) Medical times Branch daily. SERTraline 2018-0 Yes 100mg Take 100 Un kizzy 100 mg 9-26 mg by ity of tablet 00:00: mouth 2 00 (two) Medical times Branch daily. SERTraline 2018-0 Yes 100mg Take 100 Un kizzy 100 mg 9-26 mg by ity of tablet 00:00: mouth 2 (two) Medical times Branch daily. SERTraline 2018-0 Yes 100mg Take 100 Un kizzy 100 mg 9-26 mg by ity of tablet 00:00: mouth 2 (two) Medical times Branch daily. Immunizations Ordered Filled Immunization Date Status Comments Sourc e Immunization Name Name SARS-COV-2 COVID-19 2020-08-19 Completed Unive rsity of PFIZER VACCINE 00:00:00 [facility] SARS-COV-2 COVID-19 2020-08-19 Completed Unive rsity of PFIZER VACCINE 00:00:00 [facility] SARS-COV-2 COVID-19 2020-08-19 Completed Unive rsity of PFIZER VACCINE 00:00:00 [facility] SARS-COV-2 COVID-19 2020-08-19 Completed Unive rsity of PFIZER VACCINE 00:00:00 [facility] SARS-COV-2 COVID-19 2020-07-16 Completed Unive rsity of PFIZER VACCINE 00:00:00 [facility] SARS-COV-2 COVID-19 2020-07-16 Completed Unive rsity of PFIZER VACCINE 00:00:00 [facility] SARS-COV-2 COVID-19 2020-07-16 Completed Unive rsity of PFIZER VACCINE 00:00:00 [facility] SARS-COV-2 COVID-19 2020-07-16 Completed Unive rsity of PFIZER VACCINE 00:00:00 [facility] Influenza Virus 2018-03-24 Completed Universit y of Vaccine [place] IM 3+ 00:00:00 [facility] Pneumococcal 2018-03-24 Completed University o f Polysaccharide, 00:00:00 [place] [facility] ical PPSV23 (PNEUMOVAX) Branch Influenza Virus 2018-03-24 Completed Universit y of Vaccine [place] IM 3+ 00:00:00 [facility] Pneumococcal 2018-03-24 Completed University o f Polysaccharide, 00:00:00 [place] [facility] ical PPSV23 (PNEUMOVAX) Branch Influenza Virus 2018-03-24 Completed Universit y of Vaccine [place] IM 3+ 00:00:00 [facility] Pneumococcal 2018-03-24 Completed University o f Polysaccharide, 00:00:00 [place] [facility] ical PPSV23 (PNEUMOVAX) Branch Influenza Virus 2018-03-24 Completed Universit y of Vaccine [place] IM 3+ 00:00:00 [facility] Pneumococcal 2018-03-24 Completed University o f Polysaccharide, 00:00:00 [place] [facility] ical PPSV23 (PNEUMOVAX) Branch TDAP 2017-01-19 Completed University of 00:00:00 [facility] TDAP 2017-01-19 Completed University of 00:00:00 [facility] TDAP 2017-01-19 Completed University of 00:00:00 [facility] TDAP 2017-01-19 Completed University of 00:00:00 [facility] Zoster(Zostavax)( 2016-05-27 Completed Unive rsity of ingles) 00:00:00 [facility] Zoster(Zostavax)( 2016-05-27 Completed Unive rsity of ingles) 00:00:00 [facility] Zoster(Zostavax)( 2016-05-27 Completed Unive rsity of ingles) 00:00:00 [facility] Zoster(Zostavax)( 2016-05-27 Completed Unive rsity of ingles) 00:00:00 [facility] Pneumococcal 2016-05-14 Completed University o f Polysaccharide, 00:00:00 [place] [facility] ical PPSV23 (PNEUMOVAX) Branch Pneumococcal 2016-05-14 Completed University o f Polysaccharide, 00:00:00 [place] [facility] ical PPSV23 (PNEUMOVAX) Branch Pneumococcal 2016-05-14 Completed University o f Polysaccharide, 00:00:00 [place] [facility] ical PPSV23 (PNEUMOVAX) Branch Pneumococcal 2016-05-14 Completed University o f Polysaccharide, 00:00:00 [facility] [place] ical PPSV23 (PNEUMOVAX) Branch Vital Signs Vital Name Observation Time Observation Value Comments Source Heart rate 2021-02-14 05:30:00 106 /min [facility] Respiratory rate 2021-02-14 05:30:00 16 /min [facility] Systolic blood 2021-02-14 05:00:00 151 mm[Hg] Univer sity of pressure [facility] Diastolic blood 2021-02-14 05:00:00 90 mm[Hg] Unive rsity of pressure [facility] Oxygen saturation in 2021-02-14 05:00:00 97 /min [facility] Arterial blood by [facility] Pulse oximetry Branch Body temperature 2021-02-14 00:57:00 37.33 Chelle [facility] Body weight 2021-02-14 00:57:00 100.699 kg [facility] BMI 2021-02-14 00:57:00 33.75 kg/m2 [facility] ty [facility] [place] [facility] [place] Systolic blood 2021-02-13 11:30:00 164 mm[Hg] Univer sity of pressure [place] [facility] Diastolic blood 2021-02-13 11:30:00 85 mm[Hg] Unive rsity of pressure [place] [facility] [place] Heart rate 2021-02-13 11:30:00 91 /min Universi ty of [facility] Respiratory rate 2021-02-13 11:30:00 16 /min Univ ersity of [facility] Oxygen saturation in 2021-02-13 11:30:00 96 /min University of Arterial blood by [facility] Pulse oximetry Branch Body temperature 2021-02-13 05:45:00 36.89 Chelle [facility] ersity of [facility] Branch Systolic blood 2021-02-11 14:24:00 139 mm[Hg] Univer sity of pressure [facility] Diastolic blood 2021-02-11 14:24:00 75 mm[Hg] Unive rsity of pressure [facility] Heart rate 2021-02-11 14:19:00 83 /min [facility]i ty [facility] [place] [facility] [place] Body temperature 2021-02-11 14:19:00 36.83 Chelle [facility] ersity of [facility] Branch Respiratory rate 2021-02-11 14:19:00 16 /min Univ ersity of [facility] Body height 2021-02-11 14:19:00 172.7 cm Universi ty of [facility] Body weight 2021-02-11 14:19:00 101.016 kg Universi ty of [facility] BMI 2021-02-11 14:19:00 33.86 kg/m2 Universi ty [facility] Oxygen saturation in 2021-02-11 14:19:00 97 /min University of Arterial blood by [facility] Pulse oximetry Branch Procedures Procedure Date / Time Performing Clinician Source Performed XR CHEST 1 VW 2021-02-14 03:23:19 Bertin Sanchez [facility] URINALYSIS 2021-02-14 02:54:00 Bertin Sanchez [facility] URINE DRUG (IMMUNOASSAY) 2021-02-14 02:54:00 [facility] REF[facility] TROPONIN I 2021-02-14 01:36:00 Bertin Sanchez [facility] COMP. METABOLIC PANEL 2021-02-14 01:36:00 Bertin Sanchez [facility] ([id number]) Medical Branch CBC WITH DIFF 2021-02-14 01:36:00 Bertin Sanchez [facility] COVID-19 (ID NOW RAPID 2021-02-14 01:26:00 Bertin Sanchez [facility] TESTING) Medical Branch TROPONIN I 2021-02-13 10:56:00 Vishal Agarwal o f [facility] CT CHEST PULMONARY 2021-02-13 10:28:40 Mallory Lopez [facility] ANGIOGRAM [facility] Branch XR CHEST 1 VW 2021-02-13 06:37:29 Mallory Lopez [facility] TROPONIN I 2021-02-13 06:27:00 Mallory Lopez [facility] BASIC METABOLIC PANEL 2021-02-13 06:27:00 Mallory Lopez [facility] (NA, K, CL, CO2, Medical Branch GLUCOSE, BUN, CREATININE, CA) CBC WITH DIFF 2021-02-13 06:27:00 Mallory Lopez [facility] D-DIMER 2021-02-13 06:27:00 Mallory Lopez [facility] N-TERMINAL PRO-BNP 2021-02-13 06:27:00 Mallory Lopez [facility] Plan of Care Planned Activity Planned Date Details Comments Source Future Scheduled Test Hepatitis C screening [facility] (procedure) [code = 629411282] Future Scheduled Test BREAST CANCER SCREENING [facility] [code = BREAST CANCER SCREENING] Future Scheduled Test COLONOSCOPY SCREENING [facility] [code = COLONOSCOPY SCREENING] Future Scheduled Test SHINGLES VACCINES (#2) [facility] [code = SHINGLES VACCINES (#2)] Future Scheduled Test INFLUENZA VACCINE [code [facility] = INFLUENZA VACCINE] Future Scheduled Test 65+ PNEUMOCOCCAL Me [facility] VACCINE (2 of 2) [code = 65+ PNEUMOCOCCAL VACCINE (2 of 2)] Future Scheduled Test Hepatitis C screening [facility] (procedure) [code = 663542711] Future Scheduled Test BREAST CANCER SCREENING [facility] [code = BREAST CANCER SCREENING] Future Scheduled Test COLONOSCOPY SCREENING [facility] [code = COLONOSCOPY SCREENING] Future Scheduled Test SHINGLES VACCINES (#2) [facility] [code = SHINGLES VACCINES (#2)] Future Scheduled Test INFLUENZA VACCINE [code [facility] = INFLUENZA VACCINE] Future Scheduled Test 65+ PNEUMOCOCCAL Me [facility] VACCINE (2 of 2) [code = 65+ PNEUMOCOCCAL VACCINE (2 of 2)] Encounters Start End Encounter Admission Attending Care Care Encounter Source Date/Time Date/Time Type Type Clinicians Facility Department ID 2021-02-13 2021-02-14 Emergency Bertin Sanchez Marty [facility] 1.2.840 .114 [id number] Univers 19:53:00 00:56:00 Kelly Garcia 350.1.13.10 [place]y of [place] 4.2.7.2.686 [facility] [phone] [place] [id number] [place] 2021-02-13 2021-02-13 Emergency Jessica [facility] [id number] Univers 00:40:00 07:13:00 Mallory Bess 350.1.13.10 [place]y [place] 4.2.7.2.686 [facility] [phone] [facility] 084 [place] 2021-02-12 2021-02-12 Letter KAROLYN [place] 1.2.840.114 [id number] Univers 00:00:00 00:00:00 (Out) Janice BOWSER 350.1.13.[address] [facility] 4.2.7.2.686 [place] as [phone] [facility] 019 Branch 2021-02-11 2021-02-11 Urgent Julio Cesar [facility] 1.2.840.114 [id number] Univers 09:06:50 09:26:50 Care [facility] 350.1.13.10 it y of [place] 4.2.7.2.686 Bra[place] as Kyrie?Blea [phone] [address] Medical Office Building 2021-01-30 2021-01-30 [facility] 1.2.845.263 [id number] 06:55:00 10:29:00 Vishal Bess 350.1.13.10 [place] 4.2.7.2.686 [place] [id number] 084 2021-01-29 2021-01-30 [facility] 1.2.966.890 [id number] 21:35:00 01:50:00 Liana Bess 350.1.13.10 [place] 4.2.7.2.686 [place] [id number] 084 2020-11-18 2020-11-18 [facility] 1.2.840.114 [id number] 00:00:00 00:00:00 Fidencio Bess 350.1.13.10 [place] 4.2.7.2.686 Professio [phone] nal 085 [facility] [address] 2020-11-14 2020-11-14 [facility] 1.2.840.114 [id number] 00:00:00 00:00:00 Ramon Mejia Shahriar 350.1.13.10 [place] 4.2.7.2.686 Professio [phone] nal 059 [facility] [address] 2020-10-16 2020-10-16 [facility] 1.2.840.114 [id number] 00:00:00 00:00:00 Fidencio Bess 350.1.13.10 [place] 4.2.7.2.686 Professio [phone] nal 085 [facility] [address] 2020-10-01 2020-10-01 Treatment Roy, Cr 1.2.840.1 [id number] Methodi 15:27:18 16:08:34 Beny Richardson 98875.1.[address] 3.430.2.7 Hospit a .3.999662 l .8 2020-10-01 2020-10-01 Treatment Roy, Cr 1.2.840.1 [id number] Methodi 15:27:18 16:08:34 Beny Richardson 09855.1.[address] 3.430.2.7 Hospit a .3.871662 l .8 2020-10-01 2020-10-01 Travel 1.2.840.1 1.2.058.985 [id number] Methodi 00:00:00 00:00:[address] 3.430.2.7 0.2.7.3.698 Ho spita .3.628221 084.8 l .8 2020-10-01 2020-10-01 Travel 1.2.840.1 1.2.388.255 8004 [id number] Methodi 00:00:00 00:00:[address] 3.430.2.7 0.2.7.3.698 Ho spita .3.788132 084.8 l .8 2020-09-19 2020-09-19 Treatment Roy, Cr 1.2.840.1 [id number] Methodi 14:47:22 16:15:02 Beny Richardson 37121.1.[address] 3.430.2.7 Hospit a .3.623648 l .8 2020-09-19 2020-09-19 Treatment Roy, Cr 1.2.840.1 [id number] Methodi 14:47:22 16:15:02 Beny Richardson 33063.1.[address] 3.430.2.7 Hospit a .3.208071 l .8 2020-09-19 2020-09-19 Travel 1.2.840.1 1.2.122.508 [id number] [id number] Methodi 00:00:00 00:00:[address] 3.430.2.7 0.2.7.3.698 Ho spita .3.919736 084.8 l .8 2020-09-19 2020-09-19 Travel 1.2.840.1 1.2.683.380 8629 [id number] Methodi 00:00:00 00:00:[address] 3.430.2.7 0.2.7.3.698 Ho spita .3.463595 084.8 l .8 2020-09-17 2020-09-17 Documentat Richardson, 1.2.840.1 [id number] Methodi 00:00:00 00:00:[address] ion [address] 97386.1.[address] 3.430.2.7 Hospit a .3.311317 l .8 2020-09-17 2020-09-17 Documentat Richardson, 1.2.840.1 [id number] 2 [id number] Methodi 00:00:00 00:00:[address] ion [address]y [address]09.1.[address] 3.430.2.7 Hospit a .3.329078 l .8 2020-09-04 2020-09-04 Treatment Roy, Cr 1.2.840.1 [id number] 01 [id number] Methodi 15:21:22 16:38:[address] 25643.1.[address] 3.430.2.7 Hospit a .3.720642 l .8 2020-09-04 2020-09-04 Treatment Roy, Cr 1.2.840.1 [id number] 01 [id number] Methodi 15:21:22 16:38:[address] 3.430.2.7 Hospit a .3.487086 l .8 2020-09-04 2020-09-04 Plan of 1.2.840.1 [id number] Methodi 00:00:00 00:00:[address] Documentat 3.430.2.7 Hos marian ion .3.388934 l .8 2020-09-04 2020-09-04 Travel 1.2.840.1 1.2.637.734 [id number] [id number] Methodi 00:00:00 00:00:[address] 3.430.2.7 0.2.7.3.698 Ho spita .3.286159 084.8 l .8 2020-09-04 2020-09-04 Plan of 1.2.840.1 [id number] Methodi 00:00:00 00:00:[address] Documentat 3.430.2.7 Hos marian ion .3.000981 l .8 2020-09-04 2020-09-04 Travel 1.2.840.1 1.2.385.736 8296 [id number] Methodi 00:00:00 00:00:[address] 3.430.2.7 0.2.7.3.698 Ho spita .3.589963 084.8 l .8 2020-08-28 2020-08-28 Treatment Roy, Cr 1.2.840.1 [id number] 01 [id number] Methodi 13:52:33 16:45:52 Mara Lomax [place] D 37552.1.[address] 3.430.2.7 Hospit a .3.181525 l .8 2020-08-28 2020-08-28 Treatment Roy, Cr 1.2.840.1 [id number] Methodi 13:52:33 16:45:52 Mara Lomax Maria D 38561.1.[address] 3.430.2.7 Hospit a .3.171329 l .8 2020-08-28 2020-08-28 Travel 1.2.840.1 1.2.844.228 7172 [id number] Methodi 00:00:00 00:00:[address] 3.430.2.7 0.2.7.3.698 Ho spita .3.697927 084.8 l .8 2020-08-28 2020-08-28 Plan of 1.2.840.1 [id number] Methodi 00:00:00 00:00:[address] Documentat 3.430.2.7 Hos marian ion .3.668934 l .8 2020-08-28 2020-08-28 Travel 1.2.840.1 1.2.251.258 [id number] Methodi 00:00:00 00:00:[address] 3.430.2.7 0.2.7.3.698 Ho spita .3.495721 084.8 l .8 2020-08-28 2020-08-28 Plan of 1.2.840.1 [id number] Methodi 00:00:00 00:00:[address] Documentat 3.430.2.7 Hos marian ion .3.637042 l .8 2020-08-20 2020-08-20 Travel 1.2.840.1 1.2.676.172 5732 [id number] Methodi 00:00:00 00:00:[address] 3.430.2.7 0.2.7.3.698 Ho spita .3.008644 084.8 l .8 2020-08-20 2020-08-20 Travel 1.2.840.1 1.2.084.754 5235 [id number] Methodi 00:00:00 00:00:[address] 3.430.2.7 0.2.7.3.698 Ho spita .3.599593 084.8 l .8 2020-08-13 2020-08-13 Travel 1.2.840.1 1.2.811.839 6411 [id number] Methodi 00:00:00 00:00:[address] 3.430.2.7 0.2.7.3.698 Ho spita .3.415131 084.8 l .8 2020-08-13 2020-08-13 Travel 1.2.840.1 1.2.165.748 2525 [id number] Methodi 00:00:00 00:00:[address] 3.430.2.7 0.2.7.3.698 Ho spita .3.880106 084.8 l .8 2020-07-30 2020-07-30 Travel 1.2.840.1 1.2.257.409 0959 [id number] Methodi 00:00:00 00:00:[address] 3.430.2.7 0.2.7.3.698 Ho spita .3.435074 084.8 l .8 2020-07-30 2020-07-30 Travel 1.2.840.1 1.2.117.431 [id number] Methodi 00:00:00 00:00:[address] 3.430.2.7 0.2.7.3.698 Ho spita .3.430546 084.8 l .8 2020-07-22 2020-07-22 Transcribe Roy, 1.2.840.1 [id number] Methodi 00:00:00 00:00:[place] [address] 3.430.2.7 Hospit a .3.486675 l .8 2020-07-22 2020-07-22 Transcribe Roy, 1.2.840.1 [id number] Methodi 00:00:00 00:00:[address] [place] [address] 3.430.2.7 Hospit a .3.782240 l .8 2020-06-17 2020-06-17 Urgent [facility] 1.2.840.114 [id number] 18:48:25 19:08:25 Care [facility] 350.1.13.10 [place] 4.2.7.2.686 Professio [phone] nal 0[address] 2020-05-27 2020-05-27 Urgent [facility] 1.2.840.114 [id number] 16:58:39 17:55:[address] [facility] 350.1.13.10 [place] 4.2.7.2.686 Professio [phone] nal 044 [address] One Results Test Description Test Time Test Comments Results Result Comments Source URINE DRUG (IMMUNOASSAY) - COMPREHENSIVE DRUG SCREEN W /O REFLEX 2021-02-14 03:45:17 Test Item Value Reference Range Interpretation Comme nts AMPHET (test code = 7117102619) Negative Negative SALOMÓN U (test code = 3186143608) Negative Negative BENZO U (test code = 2298651633) Negative Negative Cocaine Metabolite (test code = 4647036006) Negative Negative METHADONE (test code = 1430814669) Negative Negative OPIATES (test code = 6099543767) Negative Negative PCP (test code = 9762819242) Negative Negative THC (test code = 1849692929) Negative Negative AMALIA (test code = AMALIA) Lab Interpretation (test code = 49038-3) [facility]28[facility]39 Test Item Value Reference Range Interpretation Comments APPEARANCE (test code = Clear Clear 8146082784) COLOR (test code = Yellow Yellow 0902023297) PH (test code = 4.8-8.0 6637188914) SP GRAVITY (test code = 1.003-1.030 1959237778) GLU U QUAL (test code = Normal Normal 7343507103) BLOOD (test code = Negative Negative 3026357732) KETONES (test code = Negative Negative 7417592445) PROTEIN (test code = Negative Negative 2887-8) UROBILIN (test code = Normal Normal 6532747159) BILIRUBIN (test code = Negative Negative 5905340782) NITRITE (test code = Negative Negative 9194174341) LEUK GLENNA (test code = 75/uL Negative A 2733265028) RBC/HPF (test code = See_Comment H [Autom ated message] 5464687843) The system [employer] generated this result transmitted ref erence range: 0 - 3 HP F. The reference range was not used to int erpret this result as normal/abnormal . WBC/HPF (test code = See_Comment H [Autom ated message] 1651600342) The system [employer] generated this result transmitted ref erence range: 0 - 5 HP F. The reference range was not used to int erpret this result as normal/abnormal . BACTERIA (test code = Negative Negative 2194804557) SQ EPITH (test code = <1 HPF 8749038704) Lab Interpretation (test Abnormal code = 56904-5) [facility] WITH [id number] 02:33:37 Test Item Value Reference Range Interpretation Comments WBC (test code = See_Comment H [Automated 6690-2) message] The system which generated this result transmit [place] reference range : 4.30 - 11.10 10*3/?L. The reference range was not used to interpret this result as normal/abnormal . RBC (test code = See_Comment [Automated 789-8) message] The system which generated this result transmit [place] reference range : 3.93 - 5.25 10*6/?L. The reference range was not used to interpret this result as normal/abnormal . HGB (test code = 11.3 g/dL 11.6-15.0 L 718-7) HCT (test code = 35.0 % 35.7-45.2 L 4544-3) MCV (test code = 84.3 fL 80.6-95.5 787-2) MCH (test code = 27.2 pg 25.9-32.8 785-6) MCHC (test code = 32.3 g/dL 31.6-35.1 786-4) RDW-SD (test code = 46.1 fL 39.0-49.9 05757-4) RDW-CV (test code = 15.0 % 12.0-15.5 788-0) PLT (test code = See_Comment [Automated 777-3) message] The system which generated this result transmit [place] reference range : 166 - 358 10*3/ ?L. The reference range was not u sed to interpret th is result as normal/abnormal . MPV (test code = 10.4 fL 9.5-12.9 09613-6) NRBC/100 WBC (test See_Comment [Automat ed code = 2923509243) message] The system which generated this result transmit [place] reference range : 0.0 - 10.0 /100 WBCs. The reference range was not used to interpret this result as normal/abnormal . NRBC x10^3 (test code <0.01 See_Comment [Auto mated = 6189126172) message] The system which generated this result transmit [place] reference range : 10*3/?L. The reference range was not used to interpret this result as normal/abnormal . GRAN MAT (NEUT) % 89.8 % (test code = 770-8) IMM GRAN % (test code 2.30 % = 5185722646) LYMPH % (test code = 3.5 % 736-9) MONO % (test code = 4.2 % 5905-5) EOS % (test code = 0.0 % 713-8) BASO % (test code = 0.2 % 706-2) GRAN MAT x10^3(ANC) 16.54 10*3/uL 1.88-7.09 H (test code = 7872587875) IMM GRAN x10^3 (test 0.42 10*3/uL 0.00-0.06 H code = 6360757820) LYMPH x10^3 (test code 0.64 10*3/uL 1.32-3.29 L = 731-0) MONO x10^3 (test code 0.77 10*3/uL 0.33-0.92 = 742-7) EOS x10^3 (test code = <0.03 0.03-0.39 L 711-2) BASO x10^3 (test code 0.04 10*3/uL 0.01-0.07 = 704-7) Lab Interpretation Abnormal (test code = 01434-6) [id number] Test Item Value Reference Range Interpretation Comments TROPONIN I (test code = 0.020 ng/mL See_Comment [Au tomated 8449272391) message] The sy stem which generated this result transmitted reference range : <=0.034. The reference range was not used to interpret this result as normal/abnormal . AMALIA (test code = AMALIA) Lab Interpretation Normal (test code = 45651-3) [facility] (60653)2021-02-14 01:58:53 Test Item Value Reference Range Interpretation Comments NA (test code = 6865857638) 137 mmol/L 135-145 K (test code = 3796666993) 4.4 mmol/L 3.5-5.0 CL (test code = 2078210574) 102 mmol/L 98-108 CO2 TOTAL (test code = 2249693627) 25 mmol/L 23-31 AGAP (test code = 7410313249) 2-16 BUN (test code = 3530961713) 22 mg/dL 7-23 GLUCOSE (test code = 0405587539) 149 mg/dL 70-110 H CREATININE (test code = 0.89 mg/dL 0.50-1.04 9751265243) TOTAL BILI (test code = 0.5 mg/dL 0.1-1.9 7507487928) CALCIUM (test code = 3092403567) 10.6 mg/dL 8.6-10.6 T PROTEIN (test code = 6084581265) 7.6 g/dL 6.3-8.2 ALBUMIN (test code = 0749599344) 4.5 g/dL 3.5-5.0 ALK PHOS (test code = 1574977275) 101 U/L 34-122 ALTv (test code = 1742-6) 25 U/L 5-35 AST(SGOT) (test code = 9151853519) 29 U/L 13-40 eGFR (test code = 6225186928) mL/min/1.73m2 AMALIA (test code = AMALIA) Lab Interpretation (test code = Abnormal 60873-0) [facility] NOW RAPID TESTING)2021-02-14 01:57:53 Test Item Value Reference Range Interpretation Comments SARS-CoV-2 Rapid ID NOW (test Not Detected Not Detected code = 56240-8) AMALIA (test code = AMALIA) Lab Interpretation (test code = Normal 99016-9) [facility] [id number] 11:27:57 Test Item Value Reference Range Interpretation Comments TROPONIN I (test code = <0.012 See_Comment [Au tomated message] 6504611352) The system [employer] generated this result transmitted ref erence range: <=0.034 ng/mL. The reference r elba was not used to interpret this result as normal/abnor mal. AMALIA (test code = AMALIA) Lab Interpretation (test Normal code = 18679-1) [facility] WITH [id number] 07:32:39 Test Item Value Reference Range Interpretation Comments WBC (test code = See_Comment [Automated 6690-2) message] The sy stem which generated this result transmitted reference range : 4.30 - 11.10 10*3/?L. The reference range was not used to interpret this result as normal/abnormal . RBC (test code = See_Comment [Automated 789-8) message] The sy stem which generated this result transmitted reference range : 3.93 - 5.25 10*6/?L. The reference range was not used to interpret this result as normal/abnormal . HGB (test code = 11.2 g/dL 11.6-15.0 L 718-7) HCT (test code = 35.6 % 35.7-45.2 L 4544-3) MCV (test code = 86.4 fL 80.6-95.5 787-2) MCH (test code = 27.2 pg 25.9-32.8 785-6) MCHC (test code = 31.5 g/dL 31.6-35.1 L 786-4) RDW-SD (test code = 47.0 fL 39.0-49.9 07787-7) RDW-CV (test code = 14.9 % 12.0-15.5 788-0) PLT (test code = See_Comment [Automated 777-3) message] The sy stem which generated this result transmitted reference range : 166 - 358 10*3/ ?L. The reference r elba was not used to interpret this result as normal/abnormal . MPV (test code = 10.4 fL 9.5-12.9 11906-4) NRBC/100 WBC (test See_Comment [Automat ed code = 4352564594) message] The system which generated this result transmitted reference range : 0.0 - 10.0 /100 WBCs. The refer ence range was not u sed to interpret th is result as normal/abnormal . NRBC x10^3 (test code <0.01 See_Comment [Auto mated = 2104134337) message] The s ystem which generated this result transmitted reference range : 10*3/?L. The reference range was not used to interpret this result as normal/abnormal . GRAN MAT (NEUT) % 72.7 % (test code = 770-8) IMM GRAN % (test code 4.50 % = 0789706655) LYMPH % (test code = 13.6 % 736-9) MONO % (test code = 7.0 % 5905-5) EOS % (test code = 1.8 % 713-8) BASO % (test code = 0.4 % 706-2) GRAN MAT x10^3(ANC) 7.99 10*3/uL 1.88-7.09 H (test code = 8878172257) IMM GRAN x10^3 (test 0.50 10*3/uL 0.00-0.06 H code = 8150209378) LYMPH x10^3 (test code 1.50 10*3/uL 1.32-3.29 = 731-0) MONO x10^3 (test code 0.77 10*3/uL 0.33-0.92 = 742-7) EOS x10^3 (test code = 0.20 10*3/uL 0.03-0.39 711-2) BASO x10^3 (test code 0.04 10*3/uL 0.01-0.07 = 704-7) Lab Interpretation Abnormal (test code = 17846-7) [facility] [id number] 07:10:47 Test Item Value Reference Range Interpretation Comments TROPONIN I (test code = <0.012 See_Comment [Au tomated message] 1769140787) The system [employer] generated this result transmitted ref erence range: <=0.034 ng/mL. The reference r elba was not used to interpret this result as normal/abnor mal. AMALIA (test code = AMALIA) Lab Interpretation (test Normal code = 30684-4) [facility] [id number] 07:07:26 Test Item Value Reference Range Interpretation Comments NT-proBNP (test code = 87 pg/mL See_Comment [Aut omated message] 3421939365) The system [employer] generated this result transmitted ref erence range: <=125. T he reference range was not used to int erpret this result as normal/abnormal . AMALIA (test code = AMALIA) Lab Interpretation (test Normal code = 60984-1) [facility]-[id number] 06:59:27 Test Item Value Reference Range Interpretation Comments D-DIMER (test code = See_Comment H [Autom ated message] 8269205943) The system [employer] generated this result transmitted ref erence range: <0.41 ?g /mL (FEU). The refe rence range was not u sed to interpret this result as normal/abnor mal. AMALIA (test code = AMALIA) Lab Interpretation (test Abnormal code = 90758-9) [facility] (NA, K, CL, CO2, GLUCOSE, BUN, CREATININE, CA)2021-02-13 06:58:46 Test Item Value Reference Range Interpretation Comments NA (test code = 7428396183) 139 mmol/L 135-145 K (test code = 7802758286) 4.7 mmol/L 3.5-5.0 CL (test code = 2398315971) 108 mmol/L 98-108 CO2 TOTAL (test code = 2354595171) 27 mmol/L 23-31 AGAP (test code = 7569615850) 2-16 BUN (test code = 3787383852) 22 mg/dL 7-23 GLUCOSE (test code = 4427474733) 106 mg/dL 70-110 CREATININE (test code = 1.10 mg/dL 0.50-1.04 H 4798860196) CALCIUM (test code = 9718051170) 10.1 mg/dL 8.6-10.6 eGFR (test code = 7925569171) mL/min/1.73m2 AMALIA (test code = AMALIA) Lab Interpretation (test code = Abnormal 50116-4) [facility]
[2021-02-17] MEDS ORDERED: dexAMETHasone 10 MG/ML VIAL ONE (17:30)
[2021-02-17] MEDS ORDERED: LEVALBUTEROL 1.25 MG/3 ML NEB ONE (17:30)
[2021-02-17] MEDS ORDERED: NA CHLORIDE 0.9% 500 ML ONE (17:31)
[2021-02-17] MEDS ORDERED: NA CHLORIDE 0.9% 50 ML ONE (17:31)
[2021-02-17] MEDS ORDERED: Magnesium Sulfate 2gm IVPB 2 G/50 ML BAG IV ONE (17:48)
[2021-02-17] MEDS ORDERED: FAMOTIDINE 20 MG/2 ML VIAL IV ONE (17:48)
--- NOTE | 2021-02-17 17:49 | RAD REPORT ---
EXAM DESCRIPTION: Pedro Luis Single View02/17/2021 5:27 pm CLINICAL HISTORY: cough COMPARISON: 2019 FINDINGS: The lungs appear clear of acute infiltrate. The heart is normal size IMPRESSION: No acute abnormalities displayed
--- NOTE | 2021-02-17 18:06 | ER ---
Nurse's Notes [facility] Name: Janice Harry Age: 65 yrs Sex: Female : 1955 Arrival Date: 02/17/2021 Time: 16:53 Bed 20 Private MD: Diagnosis: Moderate persistent asthma;Dyspnea;Elevated white blood cell count Presentation: 02/17 16:53 Chief complaint: EMS states: pt was at " "allergy and ENT clinic" being checked for tr6 asthma attack lasting about a week MD said she started doing better, but then started doing much worse." 150 solu, 3 albuterol, 1 atrovent given en route. Coronavirus screen: At this time, unable to obtain information related to travel outside the [place] Ebola Screen: No symptoms or risks identified at this time. Initial Sepsis Screen: Does the patient meet any 2 criteria? No. Patient's initial sepsis screen is negative. Does the patient have a suspected source of infection? No. Patient's initial sepsis screen is negative. Risk Assessment: Do you want to hurt yourself or someone else? Patient reports no desire to harm self or others. Onset of symptoms is unknown. 16:53 Method Of Arrival: EMS: [facility] tr6 17:15 Acuity: HEBER 2 tr6 Triage Assessment: 17:16 General: Appears uncomfortable, Behavior is anxious. Pain: Denies pain. EENT: No tr6 deficits noted. Neuro: No deficits noted. Cardiovascular: No deficits noted. Respiratory: Airway is patent Respiratory effort is labored, with retractions. GI: No deficits noted. : No deficits noted. Derm: No deficits noted. Musculoskeletal: No deficits noted. Historical: - Allergies: 17:17 Requip; tr6 17:17 Tegretol; tr6 - Home Meds: 17:17 Clonazepam Oral [Active]; Coreg Oral [Active]; Lipitor Oral [Active]; Wellbutrin Oral tr6 [Active]; Xanax Oral [Active]; Zoloft Oral [Active]; - PMHx: 17:17 Anxiety; Depression; Hyperlipidemia; Hypertension; Asthma; tr6 - Immunization history:: Adult Immunizations up to date. - Social history:: Smoking status: unknown. - Family history:: not pertinent. Screenin:55 Abuse screen: Denies threats or abuse. Denies injuries from another. Nutritional tr6 screening: No deficits noted. Tuberculosis screening: No symptoms or risk factors identified. Fall Risk None identified. Vital Signs: 17:15 BP 137 / 92; Pulse 103; Resp 25; Temp 97.9; Pulse Ox 100% on R/A; tr6 18:03 BP 146 / 80; Pulse 106; Resp 18; Pulse Ox 99% ; tr6 ED Course: 16:53 Patient arrived in ED. tr6 16:53 Adolfo Renteria MD is Attending Physician. [facility] 16:53 Linda Yancey RN is Primary Nurse. tr6 16:55 Appears restless. tr6 16:55 Patient has correct armband on for positive identification. Fall risk band placed. tr6 Placed in gown. Bed in low position. Call light in reach. Side rails up X2. case monitor on. Pulse ox on. NIBP on. Door closed. Noise minimized. Visitors limited. Lights dimmed. Moved to private room. Warm blanket given. Diet: Patient is NPO. 16:55 No provider procedures requiring assistance completed. tr6 17:16 Triage completed. tr6 17:18 Patient placed in an exam room. tr6 17:27 XRAY Chest (1 view) In Process Unspecified. EDMS 18:00 Jesse Stafford is Hospitalizing Provider. jose 18:05 Myron Andrews DO is Hospitalizing Provider. jose 18:06 Patient admitted, IV remains in place. tr6 21:25 Procalcitonin Sent. tr6 21:25 Procalcitonin Sent. tr6 21:25 Influenza Screen (a \\T\\ B) Sent. tr6 21:25 Blood Culture Adult (2) Sent. tr6 Administered Medications: 17:07 CANCELLED (Duplicate Order): SOLU-Medrol (methylPrednisoLONE) 125 mg IVP once [facility] 17:07 CANCELLED (Duplicate Order): AtroVENT (ipratropium) Aerosol 0.5 mg Inhalation once [facility] 17:14 Drug: Xopenex (levalbuterol) 3.75 mg Route: Inhalation; tr6 17:14 Drug: Decadron - Dexamethasone 10 mg Route: IVP; Site: left wrist; tr6 18:37 Follow up: Response: No adverse reaction tr6 17:15 Drug: NS 0.9% 500 ml Route: IV; Rate: bolus; Site: left wrist; tr6 21:25 Follow up: IV Status: Completed infusion tr6 17:33 Drug: Pepcid (famotidine) 20 mg Route: IVP; Site: left wrist; tr6 18:36 Follow up: Response: No adverse reaction tr6 17:33 Drug: Magnesium Sulfate 2 grams Route: IVPB; Infused Over: 2 hrs; Site: left wrist; tr6 18:36 Follow up: Response: No adverse reaction tr6 21:25 Follow up: IV Status: Completed infusion tr6 18:36 Drug: Ativan (LORazepam) 0.5 mg Route: IVP; Site: right antecubital; tr6 18:36 Follow up: Response: No adverse reaction tr6 Outcome: 18:05 Decision to Hospitalize by Provider. jose 18:06 Admitted to tr6 18:06 Condition: stable 18:06 Instructed on the need for admit. 21:46 Patient left the ED. em Signatures: Dispatcher [employer] Adolfo Dior MD MD cha Munoz, Edgar, RN RN Amos Delaney [facility] Linda Yancey RN RN tr6 Corrections: (The following items were deleted from the chart) 17:21 17:16 Inserted saline lock: 22 gauge in left forearm, using aseptic technique. krista jaffe
--- NOTE | 2021-02-17 18:06 | EDPHYS ---
Physician Documentation [facility] Name: Janice Harry Age: 65 yrs Sex: Female : 1955 Arrival Date: 02/17/2021 Time: 16:53 Bed 20 Private MD: ED Physician Adolfo Renteria HPI: 02/17 17:54 This 65 yrs old Female presents to ER via EMS with complaints of sob, jose wheezing and anxious. 17:54 The patient has shortness of breath at rest. Onset: The symptoms/episode began/occurred jose 2 day(s) ago. Duration: The symptoms are continuous, and are steadily getting worse. The patient's shortness of breath is aggravated by coughing, light activity, supine position. The patient presents to the emergency department with wheezing, the patient was reported to have audible wheezing, chest tightness, non-productive cough. Modifying factors: The symptoms are alleviated by nothing, the symptoms are aggravated by exertion, talking. Associated signs and symptoms: Pertinent positives: non-productive cough. Severity of symptoms: At their worst the symptoms were moderate in the emergency department the symptoms have improved mildly. Historical: - Allergies: 17:17 Requip; tr6 17:17 Tegretol; tr6 - Home Meds: 17:17 Clonazepam Oral [Active]; Coreg Oral [Active]; Lipitor Oral [Active]; Wellbutrin Oral tr6 [Active]; Xanax Oral [Active]; Zoloft Oral [Active]; - PMHx: 17:17 Anxiety; Depression; Hyperlipidemia; Hypertension; Asthma; tr6 - Immunization history:: Adult Immunizations up to date. - Social history:: Smoking status: unknown. - Family history:: not pertinent. ROS: 17:54 Constitutional: Negative for fever, chills, and weight loss, Eyes: Negative for injury, jose pain, redness, and discharge, ENT: Negative for injury, pain, and discharge, Neck: Negative for injury, pain, and swelling, Cardiovascular: Negative for chest pain, palpitations, and edema, Abdomen/GI: Negative for abdominal pain, nausea, vomiting, diarrhea, and constipation, Back: Negative for injury and pain, : Negative for injury, bleeding, discharge, and swelling, MS/Extremity: Negative for injury and deformity, Skin: Negative for injury, rash, and discoloration, Neuro: Negative for headache, weakness, numbness, tingling, and seizure, Psych: Negative for depression, anxiety, suicide ideation, homicidal ideation, and hallucinations, Allergy/Immunology: Negative for hives, rash, and allergies, Endocrine: Negative for neck swelling, polydipsia, polyuria, polyphagia, and marked weight changes, Hematologic/Lymphatic: Negative for swollen nodes, abnormal bleeding, and unusual bruising. 17:54 Respiratory: Positive for cough, wheezing, inspiratory, expiratory. Exam: 17:54 Constitutional: This is a well developed, well nourished patient who is awake, alert, jose and in no acute distress. Head/Face: Normocephalic, atraumatic. Eyes: Pupils equal round and reactive to light, extra-ocular motions intact. Lids and lashes normal. Conjunctiva and sclera are non-icteric and not injected. Cornea within normal limits. Periorbital areas with no swelling, redness, or edema. ENT: Nares patent. No nasal discharge, no septal abnormalities noted. Tympanic membranes are normal and external auditory canals are clear. Oropharynx with no redness, swelling, or masses, exudates, or evidence of obstruction, uvula midline. Mucous membranes moist. Neck: Trachea midline, no thyromegaly or masses palpated, and no cervical lymphadenopathy. Supple, full range of motion without nuchal rigidity, or vertebral point tenderness. No Meningismus. Chest/axilla: Normal chest wall appearance and motion. Nontender with no deformity. No lesions are appreciated. Cardiovascular: Regular rate and rhythm with a normal S1 and S2. No gallops, murmurs, or rubs. Normal PMI, no JVD. No pulse deficits. Abdomen/GI: Soft, non-tender, with normal bowel sounds. No distension or tympany. No guarding or rebound. No evidence of tenderness throughout. Back: No spinal tenderness. No costovertebral tenderness. Full range of motion. Skin: Warm, dry with normal turgor. Normal color with no rashes, no lesions, and no evidence of cellulitis. MS/ Extremity: Pulses equal, no cyanosis. Neurovascular intact. Full, normal range of motion. Neuro: Awake and alert, GCS 15, oriented to person, place, time, and situation. Cranial nerves II-XII grossly intact. Motor strength 5/5 in all extremities. Sensory grossly intact. Cerebellar exam normal. Normal gait. Psych: Awake, alert, with orientation to person, place and time. Behavior, mood, and affect are within normal limits. 17:54 ECG was reviewed by the Attending Physician. 17:54 Respiratory: mild respiratory distress is noted, Respirations: labored breathing, that is mild, Breath sounds: decreased breath sounds, that are moderate, rhonchi, that are moderate, are located in both bases, Respiratory rate: 25 Vital Signs: 17:15 BP 137 / 92; Pulse 103; Resp 25; Temp 97.9; Pulse Ox 100% on R/A; tr6 18:03 BP 146 / 80; Pulse 106; Resp 18; Pulse Ox 99% ; tr6 MDM: 16:53 Patient medically screened. jose 17:58 Differential diagnosis: Anxiety Reaction asthma, Bronchitis reactive airway, CHF, URI. jose Antibiotic administration: Zithromax is given. The patient's Wells Deep Vein Thrombosis Score was calculated as follows: Heart Rate >100 BPM (1.5 Pts) Total Score: 0-2 Pts- Low Risk. The patient's pulmonary embolism risk score was calculated as follows: the patients heart rate is greater than 100 beats per minute (1.5 Pts) Total Score: 0-2 points. This patient was found to be at low risk for a pulmonary embolism by using the Well's assessment criteria. Immunization status: Pneumococcal vaccine: Influenza vaccine: Data reviewed: vital signs, nurses notes, lab test result(s), EKG, radiologic studies, plain films. Data interpreted: potline monitor: rate is 103 beats/min, rhythm is regular, Pulse oximetry: on room air. Test interpretation: by ED physician or midlevel provider: ECG, plain radiologic studies. Counseling: I had a detailed discussion with the patient and/or guardian regarding: the historical points, exam findings, and any diagnostic results supporting the discharge/admit diagnosis, the presence of at least one elevated blood pressure reading (>120/80) during this emergency department visit, lab results, the need for further work-up and treatment in the hospital. 02/17 17:00 Order name: Basic Metabolic Panel; Complete Time: 19:32 [facility] 02/17 17:00 Order name: CBC with Diff; Complete Time: 19:13 jose 02/17 17:00 Order name: LFT's; Complete Time: 19:32 [facility] 02/17 17:00 Order name: Magnesium; Complete Time: 19:32 [facility] 02/17 17:00 Order name: NT PRO-BNP; Complete Time: 19:32 [facility] 02/17 17:00 Order name: PT-INR; Complete Time: 19:13 [facility] 02/17 17:00 Order name: Troponin (emerg Dept Use Only); Complete Time: 19:32 [facility] 02/17 17:00 Order name: XRAY Chest (1 view); Complete Time: 18:13 [facility] 02/17 17:00 Order name: Blood Culture Adult (2) [facility] 02/17 17:00 Order name: Influenza Screen (a \T\ B) [facility] 02/17 19:30 Order name: Procalcitonin la1 02/17 19:31 Order name: Procalcitonin [facility] 02/17 19:32 Order name: COVID-19/FLU A+B; Complete Time: 19:32 [facility] 02/17 17:00 Order name: EKG; Complete Time: 17:01 [facility] 02/17 17:00 Order name: Cardiac monitoring; Complete Time: 17:33 [facility] 02/17 17:00 Order name: EKG - Nurse/Tech; Complete Time: 18:03 [facility] 02/17 17:00 Order name: IV Saline Lock; Complete Time: 17:33 [facility] 02/17 17:00 Order name: Labs collected and sent; Complete Time: 17:33 [facility] 02/17 17:00 Order name: O2 Per Protocol; Complete Time: 17:15 [facility] 02/17 17:00 Order name: O2 Sat Monitoring; Complete Time: 17:15 [facility] EC:54 Rate is 88 beats/min. Rhythm is regular. QRS [place] is Normal. SC interval is normal. QRS jose interval is normal. QT interval is normal. No Q waves. T waves are Normal. No ST changes noted. Clinical impression: NSR w/ Non-specific ST/T Changes and No evidence of ischemia. Interpreted by me. Reviewed by me. Administered Medications: 17:07 CANCELLED (Duplicate Order): SOLU-Medrol (methylPrednisoLONE) 125 mg IVP once [facility] 17:07 CANCELLED (Duplicate Order): AtroVENT (ipratropium) Aerosol 0.5 mg Inhalation once [facility] 17:14 Drug: Xopenex (levalbuterol) 3.75 mg Route: Inhalation; tr6 17:14 Drug: Decadron - Dexamethasone 10 mg Route: IVP; Site: left wrist; tr6 18:37 Follow up: Response: No adverse reaction tr6 17:15 Drug: NS 0.9% 500 ml Route: IV; Rate: bolus; Site: left wrist; tr6 21:25 Follow up: IV Status: Completed infusion tr6 17:33 Drug: Pepcid (famotidine) 20 mg Route: IVP; Site: left wrist; tr6 18:36 Follow up: Response: No adverse reaction tr6 17:33 Drug: Magnesium Sulfate 2 grams Route: IVPB; Infused Over: 2 hrs; Site: left wrist; tr6 18:36 Follow up: Response: No adverse reaction tr6 21:25 Follow up: IV Status: Completed infusion tr6 18:36 Drug: Ativan (LORazepam) 0.5 mg Route: IVP; Site: right antecubital; tr6 18:36 Follow up: Response: No adverse reaction tr6 Disposition Summary: 02/17/21 18:05 Hospitalization Ordered Hospitalization Status: Observation jose Provider: Myron Andrews cha Location: Telemetry/MedSurg (observation) jose Condition: Fair jose Problem: new jose Symptoms: have improved jose Bed/Room Type: Standard [facility] Room Assignment: 208(02/17/21 20:50) mw Diagnosis - Moderate persistent asthma jose - Dyspnea jose - Elevated white blood cell count jose Forms: - Medication Reconciliation Form jose - SBAR form jose Signatures: Dispatcher [employer] EDMS Hope Alcala RN RN mw Anderson, Corey, MD MD cha Roszak, Josh, PA PA [id number] Ramnanan, Tiffany, RN RN tr6 Corrections: (The following items were deleted from the chart) 17:07 17:00 SOLU-Medrol (methylPrednisoLONE) 125 mg IVP once ordered. jose jose 17:07 17:00 AtroVENT (ipratropium) Aerosol 0.5 mg Inhalation once ordered. jose jose 18:43 17:01 CORONAVIRUS+ ordered. EDMS EDMS 20:50 18:05 jose che
[2021-02-17 18:20] LABS: Protime INR 0.98
[2021-02-17 18:38] LABS: Absolute Lymphocytes (CBC) 1.3 K/uL (0.7-4.9); Basophils % 0.4 % (0-1.3); Hematocrit 38.1 % (36.0-45.0); Lymphocytes % 10.2 % (15.3-44.8); MPV 8.3 fL (7.6-11.3); RBC Red Blood Cell Count 4.62 M/uL (3.86-4.86)
[2021-02-17] MEDS ORDERED: LORazepam 2 MG/ML VIAL ONE (18:56)
[2021-02-17 19:29] LABS: ALT/SGPT 27 U/L (12-78); Albumin 3.6 g/dL (3.4-5.0); Alkaline Phosphatase 95 U/L (45-117); BUN Blood Urea Nitrogen 25 mg/dL (7-18); Bicarbonate 21 mmol/L (21-32); Bilirubin Direct < 0.1 mg/dL (0-0.2); Bilirubin Total 0.3 mg/dL (0.2-1.0); Glucose Level 117 mg/dL (74-106); NT PRO-BNP 79 pg/mL (<125); Protein, Total 7.5 g/dL (6.4-8.2); Sodium Level 136 mmol/L (136-145); Troponin (Emerg Dept Use Only) < 0.02 ng/mL (0.0-0.045)
[2021-02-17 19:30] LABS: AST/SGOT 20 U/L (15-37); Magnesium 2.7 mg/dL (1.8-2.4); Potassium 5.1 mmol/L (3.5-5.1)
[2021-02-17 19:31] LABS: SARS-COV-2 RT PCR NEGATIVE (NEGATIVE)
--- NOTE | 2021-02-17 21:05 | P.HP ---
Certification for Inpatient Patient admitted to: Observation With expected LOS: <2 Midnights Patient will require the following post-hospital care: None Practitioner: I am a practitioner with admitting privileges, knowledge of patient current condition, hospital course, and medical plan of care. Services: Services provided to patient in accordance with Admission requirements found in Title 42 Section 412.3 of the Code of Federal Regulations Patient History Date of Service: 02/17/21 Primary Care Provider: None Reason for admission: Asthma exacerbation History of Present Illness: 65-year-old female with history of anxiety, depression, hyperlipidemia, hypertension, asthma presents emergency department for shortness of breath. Patient reports that she is had ongoing shortness of breath over the course of the last 1 week, reports being on oral steroids for 1 week as well as nebulizer treatments at home. Patient went to allergy/immunology clinic today and was noted to have shortness of breath and was wheezing, patient was transferred to the emergency department for evaluation. Patient was evaluated in the emergency department, labs were significant for white blood cell count 13 chest x-ray was negative for any acute findings, patient was given IV steroids, nebulizer treatments in the emergency department, after treatment patient still feels short of breath and still significant expiratory wheezing on exam, ED provider wishes to admit under observation for further evaluation and management. Allergies Shellfish Allergy (Intermediate, Verified 12/11/11 12:32) Rash carbamazepine [From Tegretol] Allergy (Unverified 05/21/15 10:09) Vomiting No Known Drug Allergies Allergy (Unverified 06/20/14 06:03) Unknown ropinirole [From Requip] Allergy (Unverified 10/24/15 19:59) Unknown tramadol Allergy (Unverified 05/21/15 10:09) Itching Tramadol-Acetaminophen Allergy (Uncoded 06/05/15 05:42) Itching - Past Medical/Surgical History -: Anxiety/depression -: Hypertension -: Hyperlipidemia -: Asthma -: Right shoulder -: Bilateral knee surgery -: Left elbow surgery -: Cholecystectomy -: Hysterectomy -: Appendectomy -: Breast augmentation/removal Psychosocial/ Personal History: Patient currently lives alone at adult living center - Family History Mother -: Hypertension Notes: Mental health disorder - Social History Smoking Status: Former smoker Smoking therapy provided: No Alcohol use: No CD- Drugs: No Caffeine use: Yes Place of Residence: Home Review of Systems 10-point ROS is otherwise unremarkable Respiratory: Cough, Shortness of Breath, Wheezing, As per HPI Physical Examination - Physical Exam General: Alert, In no apparent distress, Oriented x3 HEENT: Atraumatic, Mucous membr. moist/pink Neck: Supple Respiratory: Expiratory wheezes, Other (Mild increased respiratory effort) Cardiovascular: No edema, Regular rate/rhythm, Normal S1 S2 Capillary refill: <2 Seconds Gastrointestinal: Normal bowel sounds, No tenderness Musculoskeletal: No tenderness Integumentary: No rashes Neurological: Normal speech, Normal strength at 5/5 x4 extr, Normal tone, Normal affect - Studies Laboratory Data (last 24 hrs) 02/17/21 18:00: PT 11.3, INR 0.98 02/17/21 18:00: WBC 13.00 H, Hgb 12.6, Hct 38.1, Plt Count 315 02/17/21 18:00: Sodium 136, Potassium 5.1, BUN 25 H, Creatinine 1.05, Glucose 117 H, Magnesium 2.7 H D, Total Bilirubin 0.3, AST 20, ALT 27, Alkaline Phosphatase 95 Assessment and Plan - Plan Assessment: Dyspnea, expiratory wheezing secondary to asthma exacerbation Hypertension Hyperlipidemia Anxiety/depression Plan: Dyspnea, expiratory wheezing secondary to asthma exacerbation: Continue with IV steroids, scheduled nebulizer treatments, steroid inhaler. Pulmonology consult in place, appreciate further input from pulmonology. Daily room air saturati ons. Anticipate clinical improvement over the course the next 24 to 48 hours. Hypertension: Obtain and continue home medications, adjust as necessary Hyperlipidemia: Obtain and continue home medications, adjust as necessary Anxiety/depression: Obtain and continue home medications DVT PPX: Lovenox Code status: Full Discharge Plan: Home Plan to discharge in: 24 Hours - Advance Directives Does patient have a Living Will: No Does patient have a Durable POA for Healthcare: Yes - Code Status/Comfort Care Code Status Assessed: Yes (Full code) Critical Care: No Time Spent Managing Pts Care (In Minutes): 55
[2021-02-17] MEDS ORDERED: ONDANSETRON 4 MG/2 ML VIAL IV PRN (21:39)
[2021-02-17] MEDS ORDERED: ACETAMINOPHEN 500 MG TAB PO PRN (21:39)
[2021-02-17] MEDS ORDERED: DULERA 200/5 (MOMETASONE/FORMOTEROL) INHALER IH SCH (21:39)
[2021-02-17 22:14] VITALS: O2SAT 99
[2021-02-17 22:42] VITALS: BMI 33.7
[2021-02-17] MEDS ORDERED: TEMAZEPAM 15 MG CAP PO PRN (22:43)
[2021-02-17] MEDS ORDERED: KETOROLAC 30 MG/ML INJ IV ONE (22:45)
[2021-02-18] MEDS: METHYLPREDNISOLONE 125 MG INJ IV SCH ×2 (00:25→08:11)
[2021-02-18] MEDS ORDERED: ALBUTEROL 2.5 MG/3 ML NEB SOL NEB SCH (02:00)
[2021-02-18] MEDS ORDERED: IPRATROPIUM BROM 0.5MG/2.5ML NEB SCH (02:00)
[2021-02-18 03:34] LABS: Urine Appearance CLEAR (Clear); Urine Bilirubin NEGATIVE (Negative); Urine Blood NEGATIVE (Negative); Urine Color YELLOW (Yellow); Urine Glucose NEGATIVE (Negative); Urine Protein NEGATIVE (Negative); Urine Urobilinogen 0.2 mg/dL (0.2-1.0)
[2021-02-18 03:40] LABS: Urine Microscopic Reflex NO UMIC
[2021-02-18] MEDS ORDERED: MORPHINE 2 MG/ML SYR IV ONE (05:02)
--- NOTE | 2021-02-18 06:15 | P.PN ---
Subjective Date of Service: 02/18/21 Primary Care Provider: None Chief Complaint: Asthma exacerbation Subjective: Improving (on Room air. Breathing improved.) Physical Examination - Vital Signs Temperature: 97 F Blood Pressure: 166/79 Pulse: 114 Respirations: 19 Pulse Ox (%): 95 - Studies Laboratory Data (last 24 hrs) 02/17/21 18:00: PT 11.3, INR 0.98 02/17/21 18:00: WBC 13.00 H, Hgb 12.6, Hct 38.1, Plt Count 315 02/17/21 18:00: Sodium 136, Potassium 5.1, BUN 25 H, Creatinine 1.05, Glucose 117 H, Magnesium 2.7 H D, Total Bilirubin 0.3, AST 20, ALT 27, Alkaline Phosphatase 95 Assessment & Plan Discharge Plan: Home Plan to discharge in: 24 Hours Physician Review Additional Text: COVID: Negative Chest x-ray: COMPARISON: 2019 FINDINGS: The lungs appear clear of acute infiltrate. The heart is normal size IMPRESSION: No acute abnormalities displayed Physical exam: General: Alert, In no apparent distress, Oriented x3 HEENT: Atraumatic, Mucous membr. moist/pink Neck: Supple Respiratory: no significant wheezing. on room air. Cardiovascular: No edema, Regular rate/rhythm, Normal S1 S2 Capillary refill: <2 Seconds Gastrointestinal: Normal bowel sounds, No tenderness Musculoskeletal: No tenderness Integumentary: No rashes Neurological: Normal speech, Normal strength at 5/5 x4 extr, Normal tone, Normal affect Impression: Dyspnea, expiratory wheezing secondary to asthma exacerbation Hypertension Hyperlipidemia Anxiety/depression Plan: Dyspnea, expiratory wheezing secondary to asthma exacerbation: Patient doing well at this time. Patient seen by pulmonology. Patient transition to oral steroids. Likely home later today. Patient will need to continue with Symbicort at home. We will continue to taper oral steroid at home. Will discuss with pulmonology. Hypertension: Increase carvedilol for better blood pressure control. Hyperlipidemia: Continue home medication Anxiety/depression: Continue home medication DVT PPX: Lovenox Code status: Full Discharge Plan: Home Time Spent Managing Pts Care (In Minutes): 55
[2021-02-18] MEDS ORDERED: IPRATROPIUM BROM 0.5MG/2.5ML NEB PRN (06:16)
[2021-02-18] MEDS ORDERED: ALBUTEROL 2.5 MG/3 ML NEB SOL NEB PRN (06:16)
[2021-02-18 07:17] LABS: Absolute Lymphocytes (CBC) 0.5 K/uL (0.7-4.9); Basophils % 0.4 % (0-1.3); Hematocrit 33.7 % (36.0-45.0); Lymphocytes % 4.5 % (15.3-44.8); MPV 7.9 fL (7.6-11.3); RBC Red Blood Cell Count 4.03 M/uL (3.86-4.86)
[2021-02-18 07:34] LABS: Albumin 3.2 g/dL (3.4-5.0); Bilirubin Total 0.2 mg/dL (0.2-1.0); Magnesium 2.4 mg/dL (1.8-2.4); Potassium 4.6 mmol/L (3.5-5.1); Protein, Total 6.8 g/dL (6.4-8.2); Thyroid Stimulating Hormone 0.526 uIU/mL (0.360-3.740)
--- NOTE | 2021-02-18 08:20 | P.CNS ---
Date of Consult: 02/18/21 Reason for Consult: New onset urticaria and shortness of breath Primary Care Provider: None Chief Complaint: Asthma exacerbation History of Present Illness: Patient is 65 developed severe urticarial rash 3 weeks ago associated with wor sening shortness of breath no prior history of urticaria no recent history of travel or exposure to any new substances she appears to be very anxious history of asthma uses Combivent and Symbicort on a as needed basis Allergies Shellfish Allergy (Intermediate, Verified 02/17/21 22:06) Rash carbamazepine [From Tegretol] Allergy (Verified 02/17/21 22:06) Vomiting ropinirole [From Requip] Allergy (Verified 02/17/21 22:06) Unknown tramadol Allergy (Verified 02/17/21 22:06) Itching Tramadol-Acetaminophen Allergy (Uncoded 06/05/15 05:42) Itching Home Medications: Cetirizine HCl [Zyrtec] 1 tab PO DAILY 02/17/21 Sertraline [Zoloft*] 200 mg PO DAILY 02/17/21 Temazepam 1 cap PO BEDTIME 02/17/21 buPROPion HCL [Wellbutrin*] 450 mg PO DAILY 02/17/21 carvediloL [Carvedilol] 1 tab PO BID 02/17/21 - Past Medical/Surgical History Diabetic: No -: Anxiety/depression -: Hypertension -: Hyperlipidemia -: Asthma -: Right shoulder -: Bilateral knee surgery -: Left elbow surgery -: Cholecystectomy -: Hysterectomy -: Appendectomy -: Breast augmentation/removal Psychosocial/ Personal History: Patient currently lives alone at adult living center - Family History Mother Medical History: Hypertension Notes: Mental health disorder - Social History Smoking Status: Unknown if ever smoked Alcohol use: No CD- Drugs: No Caffeine use: Yes Place of Residence: Home Review of Systems General: Other (Pruritus) Respiratory: Shortness of Breath Physical Examination Temp Pulse Resp BP Pulse Ox 97 F 114 H 19 166/79 H 95 02/18/21 06:15 02/18/21 06:15 02/18/21 06:15 02/18/21 06:15 02/18/21 06:15 General: Alert, Moderate distress Respiratory: Expiratory wheezes Cardiovascular: No edema, Regular rate/rhythm Gastrointestinal: Normal bowel sounds, Non-distended Laboratory Data (last 24 hrs) 02/17/21 18:00: PT 11.3, INR 0.98 02/17/21 18:00: WBC 13.00 H, Hgb 12.6, Hct 38.1, Plt Count 315 02/17/21 18:00: Sodium 136, Potassium 5.1, BUN 25 H, Creatinine 1.05, Glucose 117 H, Magnesium 2.7 H D, Total Bilirubin 0.3, AST 20, ALT 27, Alkaline Phosphatase 95 - Problems (1) Urticaria Current Visit: Yes Status: Acute Plan: New onset of a new onset of urticarial rash 3 weeks ago which has improved still complains of pruritus continue with steroids antihistamines (2) Asthma exacerbation Current Visit: Yes Status: Acute Plan: Reduced dose of prior reduced dose of prednisone to 40 mg twice a day continue with bronchodilators steroid inhalers labs reviewed chest x-ray clear chest x- ray clear
[2021-02-18 08:44] LABS: Anisocytosis 1+; Blood Morphology Comment NOTED (NOT SEEN); Platelet Estimate ADEQ; White Blood Cell Scan OK (OK)
[2021-02-18] MEDS ORDERED: CETIRIZINE HCL 5 MG TABLET PO SCH (09:00)
[2021-02-18] MEDS ORDERED: ENOXAPARIN 40 MG/0.4 ML SQ SCH (09:00)
[2021-02-18] MEDS ORDERED: FAMOTIDINE 20 MG TAB PO SCH (09:00)
[2021-02-18] MEDS ORDERED: buPROPion HCL 100 MG TAB PO SCH (09:00)
[2021-02-18] MEDS ORDERED: SERTRALINE HCL 100 MG TAB PO SCH (09:00)
[2021-02-18] MEDS ORDERED: carvediloL 6.25 MG TAB PO SCH (09:00)
[2021-02-18] MEDS ORDERED: predniSONE 20 MG TAB PO SCH (09:00)
--- NOTE | 2021-02-18 09:41 | P.DS ---
Admission Date: 02/17/21 Discharge Date: 02/18/21 Primary Care Provider: None Disposition: ROUTINE DISCHARGE Discharge Condition: GOOD Reason for Admission: Asthma exacerbation Consultations: Pulmonary-Dr. De Guzman Procedures: COVID: Negative Chest x-ray: COMPARISON: 2019 FINDINGS: The lungs appear clear of acute infiltrate. The heart is normal size IMPRESSION: No acute abnormalities displayed Medical problem list: Dyspnea, expiratory wheezing secondary to asthma exacerbation Hypertension Anxiety/depression Urticaria Brief History of Present Illness: 65-year-old female with history of anxiety, depression, hypertension, asthma presents emergency department for shortness of breath. Patient reports that she is had ongoing shortness of breath over the course of the last 1 week, reports being on oral steroids for 1 week as well as nebulizer treatments at home. Patient went to allergy/immunology clinic today and was noted to have shortness of breath and was wheezing, patient was transferred to the emergency department for evaluation. Patient was evaluated in the emergency department, labs were significant for white blood cell count 13 chest x-ray was negative for any acute findings, patient was given IV steroids, nebulizer treatments. Patient admitted for observation. Hospital Course: Patient presented with dyspnea, expiratory wheezing secondary to asthma exacerbation. Patient was admitted for treatment. During the course of her stay patient received IV steroids with improvement. Patient currently on room air not requiring any oxygen. Patient seen by pulmonology. At discharge she is without significant shortness of breath. The patient will continue with prednisone 40 mg twice daily for 5 days then 20 mg twice daily for 5 days then 20 mg daily for 5 days. The patient will also be started on Symbicort 2 puffs twice daily for her asthma. The patient may continue with albuterol 2 puffs 3 times a day as needed for shortness of breath. The patient will need to follow- up with pulmonology within 1 week to follow-up his hospitalization and continue her care. Education on the importance of using her inhalers will be provided. Education on asthma provided. Recommend to establish care with a local PCP in the area to continue her medical problems. A list of PCPs in the area will be provided. Patient has hypertension. Blood pressures were elevated. Medication was adjusted for better control. At discharge she will continue with carvedilol 12.5 mg 1 pill twice daily. Recommend to maintain blood pressure less than 130/80. Further adjustment can be done by her PCP. Patient will need to establish care locally with a PCP. List of PCPs in the area will be provided. Patient with depression with anxiety. At discharge patient will continue with her medications including Wellbutrin 150 mg daily and Zoloft 200 mg daily. Patient also takes temazepam 30 mg at bedtime. Recommend follow-up with her PCP or psychiatrist to further monitor and adjust medication. Patient also reported some urticaria. Patient will continue with Zyrtec 10 mg daily along with Pepcid 20 mg 1 pill twice daily. Continue with above plan of care. Recommend to follow-up with pediatrician/medical doctor to further evaluate and treat. Vital Signs/Physical Exam: Temp Pulse Resp BP Pulse Ox 97 F 114 H 19 166/79 H 95 02/18/21 09:35 02/18/21 09:35 02/18/21 09:35 02/18/21 09:35 02/18/21 09:35 General: Alert, In no apparent distress, Oriented x3, Cooperative HEENT: Atraumatic Neck: Supple Respiratory: Clear to auscultation bilaterally, Other (on room air) Cardiovascular: Normal pulses, Regular rate/rhythm Gastrointestinal: Normal bowel sounds Musculoskeletal: No erythema, No tenderness, No warmth Integumentary: No tenderness/swelling Neurological: Normal speech, Normal strength at 5/5 x4 extr, Normal tone Laboratory Data at Discharge: WBC 11.70 K/uL (4.3-10.9) H 02/18/21 07:04 Hgb 11.2 g/dL (12.0-15.0) L 02/18/21 07:04 Hct 33.7 % (36.0-45.0) L 02/18/21 07:04 Plt Count 257 K/uL (152-406) 02/18/21 07:04 PT 11.3 SECONDS (9.5-12.5) 02/17/21 18:00 INR 0.98 02/17/21 18:00 Sodium 137 mmol/L (136-145) 02/18/21 07:04 Potassium 4.6 mmol/L (3.5-5.1) 02/18/21 07:04 BUN 30 mg/dL (7-18) H 02/18/21 07:04 Creatinine 1.14 mg/dL (0.55-1.3) 02/18/21 07:04 Glucose 155 mg/dL (74-106) H 02/18/21 07:04 Magnesium 2.4 mg/dL (1.8-2.4) 02/18/21 07:04 Total Bilirubin 0.2 mg/dL (0.2-1.0) 02/18/21 07:04 AST 11 U/L (15-37) L 02/18/21 07:04 ALT 26 U/L (12-78) 02/18/21 07:04 Alkaline Phosphatase 82 U/L (45-117) 02/18/21 07:04 Triglycerides 75 mg/dL (<150) 02/18/21 07:04 Cholesterol 296 mg/dL (<200) H 02/18/21 07:04 HDL Cholesterol 84 mg/dL (40-60) H 02/18/21 07:04 Cholesterol/HDL Ratio 3.52 02/18/21 07:04 Home Medications: Cetirizine HCl [Zyrtec] 1 tab PO DAILY 02/17/21 Sertraline [Zoloft*] 200 mg PO DAILY 02/17/21 Temazepam 1 cap PO BEDTIME 02/17/21 buPROPion HCL [Wellbutrin*] 450 mg PO DAILY 02/17/21 Albuterol Sulfate [Proair Hfa] 2 puff IH TID PRN #1 hfa.aer.ad 02/18/21 Budesonide/Formoterol Fumarate [Symbicort 160-4.5 Mcg Inhaler] 2 puff IH BID #1 hfa.aer.ad 02/18/21 Carvedilol [Coreg] 12.5 mg PO BID #60 tablet 02/18/21 Famotidine [Pepcid*] 20 mg PO BID #60 tab 02/18/21 predniSONE [Prednisone*] 40 mg PO SEECOM #35 tab 02/18/21 New Medications: Carvedilol [Coreg] 12.5 mg PO BID #60 tablet Famotidine [Pepcid*] 20 mg PO BID #60 tab predniSONE [Prednisone*] 40 mg PO SEECOM #35 tab Albuterol Sulfate [Proair Hfa] 2 puff IH TID PRN #1 hfa.aer.ad PRN Reason: Shortness Of Breath Budesonide/Formoterol Fumarate [Symbicort 160-4.5 Mcg Inhaler] 2 puff IH BID #1 hfa.aer.ad Physician Discharge Instructions: Patient presented with dyspnea, expiratory wheezing secondary to asthma exacerbation. Patient was admitted for treatment. During the course of her stay patient received IV steroids with improvement. Patient currently on room air not requiring any oxygen. Patient seen by pulmonology. At discharge she is without significant shortness of breath. The patient will continue with prednisone 40 mg twice daily for 5 days then 20 mg twice daily for 5 days then 20 mg daily for 5 days. The patient will also be started on Symbicort 2 puffs twice daily for her asthma. The patient may continue with albuterol 2 puffs 3 times a day as needed for shortness of breath. The patient will need to follow- up with pulmonology within 1 week to follow-up his hospitalization and continue her care. Education on the importance of using her inhalers will be provided. Education on asthma provided. Recommend to establish care with a local PCP in the area to continue her medical problems. A list of PCPs in the area will be provided. Patient has hypertension. Blood pressures were elevated. Medication was adjusted for better control. At discharge she will continue with carvedilol 12.5 mg 1 pill twice daily. Recommend to maintain blood pressure less than 130/80. Further adjustment can be done by her PCP. Patient will need to establish care locally with a PCP. List of PCPs in the area will be provided. Patient with depression with anxiety. At discharge patient will continue with her medications including Wellbutrin 150 mg daily and Zoloft 200 mg daily. Patient also takes temazepam 30 mg at bedtime. Recommend follow-up with her PCP or psychiatrist to further monitor and adjust medication. Patient also reported some urticaria. Patient will continue with Zyrtec 10 mg daily along with Pepcid 20 mg 1 pill twice daily. Continue with above plan of care. Recommend to follow-up with pediatrician/medical doctor to further evaluate and treat. Diet: AHA Activity: Ad ashley Followup: NONE,NONE [Primary Care Provider] - Time spent managing pt's care (in minutes): 55
[2021-02-18 13:44] VITALS: BP 158/83; TEMP 98.7
--- NOTE | 2021-02-18 16:14 | EKG ---
Test Date: 2021-02-17 Test Time: 17:35:13 Vertical Borer: GLORY MEASUREMENT RESULTS: Intervals: Rate: 88 MT: 166 QRSD: 84 QT: 348 QTc: 421 [place]: P: 50 MT: 166 QRS: -31 T: 52 INTERPRETIVE STATEMENTS: Normal sinus rhythm Left axis deviation Low voltage QRS Abnormal ECG Compared to ECG 07/31/2019 14:22:09 Left-axis deviation now present Myocardial infarct finding no longer present Electronically Signed On 02-18-21 16:11:46 CDT by Mann Taylor
[2021-02-18] MEDS ORDERED: carvediloL 12.5 MG TAB PO SCH (21:00)
== END 2021-02-18 16:19 | disposition home or self-care (01) ==
LOC: ER 16:42 → ERHOLD 20:36 → 2ND 21:32
PROVIDERS: ADMIT Family Medicine; ATTEND Family Medicine
DX: J45.901 Unspecified asthma with (acute) exacerbation (principal); I10 Essential (primary) hypertension; L50.9 Urticaria, unspecified; F41.9 Anxiety disorder, unspecified; F32.9 Major depressive disorder, single episode, unspecified; E78.5 Hyperlipidemia, unspecified; Z20.822 Contact with and (suspected) exposure to COVID-19; Z87.891 Personal history of nicotine dependence; Z88.6 Allergy status to analgesic agent; Z88.8 Allergy status to other drugs, medicaments and biological substances; Z91.013 Allergy to seafood; Z90.49 Acquired absence of other specified parts of digestive tract; Z82.49 Family history of ischemic heart disease and other diseases of the circulatory system
CPT/HCPCS: 93005; 87040 ×2; 85025 ×2; 80048; 36415; 83735 ×2; 85610; 80061; 80076; 84443; 81003; 84484; 84439; 80053; 84145; 83880; 0240U; 71045; 94640; 99285; J1650; J1100; J2270; J3475; J7040; J2930 ×2; J2405; G0378 ×3; J7606

== ENCOUNTER 2021-09-04 06:01 | Day surgery (SDC) | payer MEDICARE, OTHER ==
[2021-09-04] MEDS ORDERED: Ringers Lactate 1,000 ML IV ONE (06:36)
[2021-09-04] MEDS ORDERED: EPINEPHRINE/PF 1 MG/ML AMP ONE (06:56)
[2021-09-04] MEDS ORDERED: POVIDONE-IODINE 5% EYE DROPS ONE (06:56)
[2021-09-04] MEDS ORDERED: BSS PLUS IRR ONE (06:56)
[2021-09-04] MEDS ORDERED: DUOVISC 1 KIT OPTH ONE (06:56)
[2021-09-04] MEDS ORDERED: TOBRADEX 0.3-0.1% OPTH OINTMENT ONE (06:57)
[2021-09-04] MEDS ORDERED: HYALURONATE SODIUM 10 MG/ML SYR OPTH ONE (06:57)
[2021-09-04] MEDS: PHENYLEPHRINE 2.5% OPTH 2 ML ONE ×3 (07:02→07:32)
[2021-09-04] MEDS: TROPICAMIDE 1% OPTH 3 ML BOT ONE ×3 (07:02→07:32)
[2021-09-04] MEDS: MOXIFLOXACIN HCL 0.5% 3ML OPTH OPTH ONE ×2 (07:02→07:17)
[2021-09-04] MEDS: CYCLOPENTOLATE 2% OPTH 2 ML ONE ×3 (07:02→07:32)
[2021-09-04] MEDS: KETOROLAC OPTHALMIC 5 ML BOT ONE ×2 (07:17→07:32)
[2021-09-04] MEDS ORDERED: LIDOCAINE 1% MPF 5 ML VIAL ONE (07:21)
[2021-09-04] MEDS ORDERED: MIDAZOLAM HCL 2 MG/2 ML INJ ONE (07:21)
[2021-09-04] MEDS ORDERED: FENTANYL CITR 100 MCG/2 ML ONE (07:21)
[2021-09-04] MEDS ORDERED: propofoL 200 MG/20 ML VIAL IV ONE (07:21)
[2021-09-04] MEDS ORDERED: dexAMETHasone 10 MG/ML VIAL ONE (07:51)
[2021-09-04] MEDS ORDERED: KETOROLAC 30 MG/ML INJ ONE (07:51)
[2021-09-04] MEDS ORDERED: ONDANSETRON 4 MG/2 ML VIAL ONE (07:52)
[2021-09-04] MEDS ORDERED: EPHEDRINE SULF 50 MG/ML VIAL ONE (07:53)
[2021-09-04] MEDS ORDERED: NS 0.9% VIAL 10 ML ONE ×2 (07:53→08:06)
[2021-09-04] MEDS ORDERED: Phenylephrine HCl 10 MG/ML 1 ML VIAL ONE (08:06)
[2021-09-04] MEDS ORDERED: GLYCOPYRROLATE 0.2 MG/ML SYR ONE (08:07)
[2021-09-04] MEDS ORDERED: MORPHINE 4 MG/ML SYR ONE (09:11)
[2021-09-04 10:06] VITALS: BP 129/75; TEMP 97; O2SAT 100
--- NOTE | 2021-09-04 20:22 | OP ---
Date of Procedure: 09/04/2021 Surgeon: Nicholas Hoffman MD [employer] Desk Worker: None. Preoperative Diagnosis: Visually significant cataract, left eye. Postoperative Diagnosis: Visually significant cataract, left eye. Procedure Performed: Cataract extraction of left eye with placement of intraocular lens, left eye. JPG/MODL Voice ID: [id number] Report ID: [id number]
== END 2021-09-04 10:35 | disposition home or self-care (01) ==
LOC: OR 06:01
PROVIDERS: ATTEND Ophthalmology
PROC: 08RK3JZ Replacement of Left Lens with Synthetic Substitute, Percutaneous Approach (ICD-10-PCS; principal; 2021-09-04 07:30)
DX: H54.62 Unqualified visual loss, left eye, normal vision right eye (principal); H26.8 Other specified cataract; Z20.822 Contact with and (suspected) exposure to COVID-19
CPT/HCPCS: 66984; U0002; J2704; J0171; J2370; J2250; J3010; J1100; J7120; J2405; J3490

== ENCOUNTER → 2021-10-03 | Emergency (ER) | payer MEDICARE ==
[~2021-10-03] MED LIST: KETOROLAC 30 MG/ML INJ ONE; METOCLOPRAMIDE 10 MG/2mL INJ ONE; NA CHLORIDE 0.9% 1,000 ML ONE; carvediloL 6.25 MG TAB ONE
--- OUTSIDE RECORDS SUMMARY | 2021-10-03 19:28 | XMS REPORT | Continuity of Care Document ---
:1955 Author Organization [facility] t Address [address] [place] [address] Care Team Providers Name Role Phone Asked, Pcp Primary Care Physician Unavailable Robert KHAN Attending Clinician Unavailable RADHA, S Attending Clinician Unavailable Radha PAC, S Attending Clinician Attending Clinician Unavailable Singer CR Attending Clinician Yohan Attending Clinician Unavailable Nicolás Attending Clinician Unavailable Laura HEAVY TRUCK TECHNICIAN, B Attending Clinician Jessica BULLET CASTING OPERATOR, G Attending Clinician Jayson NELSON, T Attending Clinician Unavailable Julio Cesar DIAZ Attending Clinician UNKNOWN Attending Clinician Unavailable MERLINE_Citlalli Attending Clinician Unavailable Stefano DIAZ Attending Clinician Shruti DIAZ S Attending Clinician Claire CR Attending Clinician Bismark DIAZ, K.H. Attending Clinician Manuela DIAZ Attending Clinician Dylan HART Attending Clinician Unavailable Maria D Lomax PT Attending Clinician Unavailable BISMARK, K.H. Attending Clinician Unavailable Fred KIM Attending Clinician Unavailable CLAIRE Attending Clinician Unavailable CLAIRE Attending Clinician Unavailable Erin HEAVY TRUCK TECHNICIAN, J Attending Clinician GREEN Attending Clinician Unavailable Green HEAVY TRUCK TECHNICIAN Attending Clinician SAEZ Attending Clinician Unavailable Jolynn_S Admitting Clinician Unavailable MERLINE_T Admitting Clinician Unavailable Payers Payer Name Policy Type Policy Number Effective Date Expiration Date S 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 [id number] 2021 NON-CONTRACT 00:00:00 GENERIC AETNA MEDICARE ADV [id number] 2019 00:00:00 MANAGED MEDICARE [id number] PPO/FFS GENERIC 00:00:00 DEVOTED HEALTH [id number] (MEDICARE 00:00:00 REPLACEMENT HMO) [employer] GOLD PLS HMO [id number] 2019 00:00:00 Problems Condition Condition Condition Status Onset Resolution Last Treating Co mments Source Name Details Category Date Date Treatment Clinician Date Acute pain Acute pain Disease Active M ethodi of right of right 09-19 st shoulder shoulder 00:00: [facility] 00 l Fatty Fatty Disease Active Univers liver liver 2-25 ity of 00:00: [place] [facility] Macular Macular Disease Active Univers degenerati degenerati 2-25 it y of on on 00:00: [place] [facility] Vitamin D Vitamin D Disease Active Uni vers deficiency deficiency 2-25 it y of 00:00: [place] [facility] Alopecia Alopecia Disease Active Overview: Un kizzy 2-25 Formattin ity of 00:00: g of this note Medical might be Branch different from the original. Has been seen by Jorge A ontiveros. Allergic Allergic Disease Active Unive rs rhinitis rhinitis 2-25 ity of 00:00: [place] [facility] B12 B12 Disease Active Univers deficiency deficiency 9-25 it y of 00:00: [place] [facility] Stress Stress Disease Active Univers incontinen incontinen 9-25 it y of ce ce 00:00: [place] [facility] HLD HLD Disease Active Univers (hyperlipi (hyperlipi 919 it y of demia) demia) 00:00: [place] [facility] Chest pain Chest pain Disease Active U nivers 9-18 ity of 00:00: [place] [facility] Vertigo Vertigo Disease Active Univers 8-12 ity of 00:00: Medical Branch SOB SOB Disease Active Univers (shortness (shortness 1-28 it y of of breath) of breath) 00:00: [place] [facility] Dyspnea Dyspnea Disease Active 2015-06 Univers 2-16 ity of 00:00: [place] [facility] Shortness Shortness Disease Active 2015-06 Uni vers of breath of breath 1-28 ity of 00:00: [place] [facility] Obesity Obesity Disease Active 2015-06 Univers (BMI (BMI 1-20 ity of 30-39.9) 30-39.9) 00:00: [place] [facility] Acute Acute Disease Active 2015-06 Univers respirator respirator 1-20 it y of y failure y failure 00:00: [place] [facility] Shoulder Shoulder Disease Active Unive rs pain, pain, 3-07 ity of right right 00:00: [place] [facility] Suicidal Suicidal Disease Active Unive rs ideations ideations 4-07 ity of 00:00: [place] [facility] Hyponatrem Hyponatrem Disease Active U nivers ia ia 4-07 ity of 00:00: [place] [facility] Cardiomyop Cardiomyop Disease Active U nivers athy athy ity of [facility] Branch Allergies, Adverse Reactions, Alerts Allergy Allergy Status Severity Reaction(s) Onset Inactive Treating Comm ents Source Name Type Date Date Clinician CODEINE DRUG Active High N/V Univers INGREDI 8- ity of 00:00: [place] [facility] Codeine Propensi Active Nausea Univers ty to and/or 02-15 ity of adverse Vomiting 00:00: [place] reaction Medical Branch BUPRENOR DRUG Active Unknown-Cmnt Un kizzy PHINE-NA 9-06 ity of LOXONE 00:00: Medical Branch CIPROFLO DRUG Active ITCHING Univers XACIN INGREDI 8- ity of 00:00: [place] [facility] Ciproflo Propensi Active Itching Unive rs xacin ty to 8- ity of adverse 00:00: [place] reaction Medical s Branch SHELLFIS DRUG Active ITCHING 2016-1 Univers H INGREDI 1-21 ity of DERIVED 00:00: [place] 00 Medical Branch Shellfis Propensi Active Itching 2016- For Food Uni vers h ty to 07-11 Service ity of Derived adverse 00:00: Use - [place] reaction 00 Thank Medical s you! Branch SUMATRIP DRUG Active Anxiety 2015-0 Univers RUSH INGREDI 3-07 ity of 00:00: [place] 00 Medical Branch Sumatrip Propensi Active Anxiety 2015- Unive rs rush ty to 3-07 ity of adverse 00:00: [place] reaction 00 Medical s Branch IODINE Drug Active ITCHING Univers AND Class 9-20 ity of IODIDE 00:00: [place] CONTAINI 00 Medical NG Branch PRODUCTS Iodine Propensi Active Itching Univers And ty to 9-20 ity of Iodide adverse 00:00: [place] Containi reaction 00 Medica l s Branch Products CARBAMAZ DRUG Active Hives Univers EPINE INGREDI 4-07 ity of 00:00: [place] 00 Medical [place] Social History Social Habit Start Date Stop Date Quantity Comments Source Exposure to Not sure [place] of SARS-CoV-2 (event) [facility] Alcohol intake 2021-08-30 2021-08-30 Current University of 00:00:00 00:00:00 non-drinker of [facility] alcohol Branch (finding) Cigarettes smoked 2021-02-13 2021-02-13 Univers ity of current (pack per 00:00:00 00:00:00 ) - Reported Branch Cigarette 2021-02-13 2021-02-13 University of pack-years 00:00:00 00:00:00 [facility] Tobacco use and 2021-02-13 2021-02-13 Former user Universi ty of exposure 00:00:00 00:00:00 [facility] History of tobacco 2012-09-26 User of Univer sity of use 00:00:00 smokeless [facility] tobacco [place] Sex Ass[birth year] Universit y of 00:00:00 00:00:00 [facility] Smoking Status Start Date Stop Date Source Unknown if ever smoked [facility] Former smoker 2021-02-13 00:00:00 2021-02-13 00:00:00 Universi ty of [facility] Medications Ordered Filled Start Stop Current Ordering Indication Dosage Frequency Signature Comments Components Source Medication Medication Date Date Medication? Clinician (SIG) Name Name ondansetron 2021- No 4mg 4 mg, Slow Univers (ZOFRAN 08-30 IV Push, ity of (PF)) 18:30: 17:36 ONCE, 1 [place] injection 4 00 :00 dose, On Medi dave mg Sat Branch 08/30/21 at 1230, MARK morpHINE 2021- No 4mg 4 mg, Slow Un kizzy injection 4 08-30 IV Push, ity of mg 18:30: 17:37 ONCE, 1 [place] 00 :00 dose, On Medical Sat Branch 08/30/21 at 1230, STAT ketorolac 2021- No 15mg 15 mg, Unive rs (TORADOL) 08-30 Slow IV ity of injection 17:30: 16:33 Push, [place] 15 mg 00 :00 ONCE, 1 Medical dose, On Branch 08/30/21 at 1130, MARK
Fa culty member approving Restricted medication : NICOLETTE CAMPBELL NaCl 0.9% 2021- No 1000mL at 999 Uni vers (NS) bolus 08-30 mL/hr, ity of infusion 17:30: 17:39 1,000 mL, [place] as 1,000 mL 00 :00 IV Medical Infusion, Branch ONCE, 1 dose, On 08/30/21 at 1130, STAT phenazopyri 2021- No 200mg 200 mg, U nivers dine 1-04 01-04 Oral, ity of (PYRIDIUM) 16:15: 15:08 ONCE, 1 [place] tablet 200 00 :00 dose, On Medic al mg 06/24/21 Branch at 1015, Routine phenazopyri Yes [id number] 200mg Take 1 Univers dine 200 mg 1-04 tablet by ity of tablet 00:00: mouth 3 [place] 00 (three) Medical times Branch daily. phenazopyri Yes [id number] 200mg Take 1 Univers dine 200 mg 1-04 tablet by ity of tablet 00:00: mouth 3 [place] 00 (three) Medical times Branch daily. cephALEXin 2021- No [id number] 500mg Take 1 Univers (KEFLEX) 06-2412 capsule by ity of 500 mg 00:00: 05:59 mouth 3 [place] capsule 00 :00 (three) Medical times [place] daily for 7 days. amoxicillin Yes 1{tbl} 1 tablet, Univers -clavulanat 02-14 Oral, ity of e 13:00: Q12H, [place] (AUGMENTIN) 00 First dose Me dical 875-125 mg on Fri Branch per tablet 02/14/21 at 1 tablet 0800, Until Discontinu ed, Routine
Reason for Anti-Infec tive: Documented Infection< br>Documen [place] Infection Site: Respirator y
Durat ion of Therapy: Other (see Comments) dexamethaso No 10mg 10 mg, IV Univers ne 02-14 Push, ity of (DECADRON 06:30: 05:44 ONCE, 1 [place] PHOS[place] 00 :00 dose, Fri Medi dave injection 02/14/21 at [facility] 10 mg 0130, STAT ipratropium 2020- No 3mL 3 mL, Univ ers -albuteroL 02-14 Inhalation it y of (DUONEB) 06:15: 05:07 , ONCE, 1 [place] 0.5 mg-3 00 :00 dose, Fri Medica l mg(2.5 mg 02/14/21 at [facility] ch base)/3 mL 0115, nebulizer Routine solution 3 mL LORazepam No .5mg 0.5 mg, Univ ers (ATIVAN) 02-14 Oral, ity of tablet 0.5 05:00: 04:03 ONCE, 1 [place] mg 00 :00 dose, Fri Medical 02/14/21 at Branch 0000, MARK magnesium 2020- No 2g 2 g, IV Univ ers sulfate in 02-14 Piggyback, it y of water 2 03:15: 02:53 ONCE, 1 [place] gram/50 mL 00 :00 dose, Cathy Medi dave (4 %) 02/13/21 at [place] infusion 2 2215, g Routine methylPREDN 2020- No 60mg 60 mg, IV Univers ISolone sod 02-14 Piggyback, i ty of succ 03:15: 02:22 ONCE, 1 [place] (SOLU-MEDRO 00 :00 dose, Cathy Med ical L (PF)) 02/13/21 at Branch injection 2215, STAT 60 mg ipratropium 2020- No 6mL 6 mL, Univ ers -albuteroL 02-14 Inhalation it y of (DUONEB) 03:15: 02:27 , ONCE, 1 [place] as 0.5 mg-3 00 :00 dose, Cathy Medica l mg(2.5 mg 02/13/21 at [facility]3 mL 2215, nebulizer Routine solution 6 mL NaCl 0.9% 2020- No 1000mL at 999 Uni vers (NS) bolus 02-14 mL/hr, ity of infusion 02:45: 04:00 1,000 mL, [place] as 1,000 mL 00 :00 IV Medical Piggyback, [place] ONCE, 1 dose, Cathy 02/13/21 at 2145, STAT amoxicillin 2020- Yes [id number] 1{tbl} Take 1 Univers -clavulanat 8-27 tablet by ity of e 875-125 00:00: mouth [place] mg per 00 every 12 Medical tablet (twelve) Branch hours. amoxicillin 0 Yes [id number] 1{tbl} Take 1 Univers -clavulanat 8-27 tablet by ity of e 875-125 00:00: mouth [place] mg per 00 every 12 Medical tablet (twelve) Branch hours. amoxicillin 0 Yes [id number] 1{tbl} Take 1 Univers -clavulanat 8-27 tablet by ity of e 875-125 00:00: mouth [place] mg per 00 every 12 Medical tablet (twelve) Branch hours. iopamidol 2020- No [id number] 100mL 100 mL, Univers (ISOVUE 02-13 Intravenou ity o f 370-500 mL) 11:30: 10:26 s, ONCE, 1 [place] injection 00 :00 dose, Cathy Medic al 100 mL 02/13/21 at Branch 0630, Routine diphenhydrA 2020- No 25mg 25 mg, Uni vers MINE 02-13 Slow IV ity of (BENADRYL) 08:30: 08:07 Push, [place] injection 00 :00 ONCE, 1 Medical 25 mg dose, [facility] 02/13/21 at 0330, STAT methylpredn 2020- No 125mg 125 mg, U nivers isolone sod 02-13 Slow IV ity of succ 07:15: 06:39 Push, [place] (SOLU-MEDRO 00 :00 ONCE, 1 Medic al L) dose, [facility] Branch injection 02/13/21 at 125 mg 0215, STAT ipratropium 2020- No 3mL 3 mL, Univ ers -albuteroL 02-13 Inhalation it y of (DUONEB) 07:15: 06:27 , ONCE [place] 0.5 mg-3 00 :00 NOW, 1 Medical mg(2.5 mg dose, [facility] h base)/3 mL 02/13/21 at nebulizer 0215, solution 3 Routine mL diphenhydrA 2020- No 25mg 25 mg, Uni vers MINE 02-13 Slow IV ity of (BENADRYL) 06:45: 07:00 Push, [place] injection 00 :00 ONCE, 1 Medical 25 mg dose, [facility] 02/13/21 at 0200, STAT guaiFENesin 0 Yes [id number] 400mg Take 1 Univers 400 mg 8-24 tablet by ity of tablet 00:00: mouth [place] 00 every 4 Medical (four) Branch hours as needed for Cough. benzonatate 2020-0 Yes [id number] 200mg Take 2 Univers 100 mg 8-24 capsules ity of capsule 00:00: by mouth 2 [place] 00 (two) Medical times Branch daily as needed for Cough. guaiFENesin 2020-0 Yes [id number] 400mg Take 1 Univers 400 mg 8-24 tablet by ity of tablet 00:00: mouth [place] 00 every 4 Medical (four) Branch hours as needed for Cough. benzonatate 2020-0 Yes [id number] 200mg Take 2 Univers 100 mg 8-24 capsules ity of capsule 00:00: by mouth 2 [place] 00 (two) Medical times Branch daily as needed for Cough. guaiFENesin 2020-0 Yes [id number] 400mg Take 1 Univers 400 mg 8-24 tablet by ity of tablet 00:00: mouth [place] 00 every 4 Medical (four) Branch hours as needed for Cough. benzonatate 2021-0 Yes [id number] 200mg Take 2 Univers 100 mg 8-24 capsules ity of capsule 00:00: by mouth 2 [place] 00 (two) Medical times Branch daily as needed for Cough. guaiFENesin 2021-0 Yes [id number] 400mg Take 1 Univers 400 mg 8-24 tablet by ity of tablet 00:00: mouth [place] 00 every 4 Medical (four) Branch hours as needed for Cough. benzonatate 1-0 Yes [id number] 200mg Take 2 Univers 100 mg 8-24 capsules ity of capsule 00:00: by mouth 2 [place] 00 (two) Medical times Branch daily as needed for Cough. guaiFENesin 1-0 Yes [id number] 400mg Take 1 Univers 400 mg 8-24 tablet by ity of tablet 00:00: mouth [place] 00 every 4 Medical (four) Branch hours as needed for Cough. benzonatate 1-0 Yes [id number] 200mg Take 2 Univers 100 mg 8-24 capsules ity of capsule 00:00: by mouth 2 [place] 00 (two) Medical times Branch daily as needed for Cough. guaiFENesin 1-0 Yes [id number] 400mg Take 1 Univers 400 mg 8-24 tablet by ity of tablet 00:00: mouth [place] 00 every 4 Medical (four) Branch hours as needed for Cough. benzonatate 1-0 Yes [id number] 200mg Take 2 Univers 100 mg 8-24 capsules ity of capsule 00:00: by mouth 2 [place] 00 (two) Medical times Branch daily as needed for Cough. cephALEXin 2021-0 2021- No [id number] 500mg Take 1 Univers (KEFLEX) 8-24 08-29 capsule by ity of 500 mg 00:00: 04:59 mouth 4 [place] capsule 00 :00 (four) Medical times Branch daily for 4 days. cephALEXin 2021-0 2021- No [id number] 500mg Take 1 Univers (KEFLEX) 8-24 08-29 capsule by ity of 500 mg 00:00: 04:59 mouth 4 [place] capsule 00 :00 (four) Medical times Branch daily for 4 days. cephALEXin 2020- No [id number] 500mg Take 1 Univers (KEFLEX) 8-11 02- capsule by ity of 500 mg 00:00: 04:59 mouth 4 [place] capsule 00 :00 (four) Medical times Branch daily for 4 days. cephALEXin 2020- No [id number] 500mg Take 1 Univers (KEFLEX) 8-24 - capsule by ity of 500 mg 00:00: 04:59 mouth 4 [place] capsule 00 :00 (four) Medical times Branch daily for 4 days. cetirizine Yes [id number] 10mg Take 1 U nivers (ZYRTEC) 10 8-20 tablet by ity of mg tablet 00:00: mouth 00 daily. Medical Branch famotidine Yes [id number] 40mg Take 1 U nivers 40 mg 8-20 tablet by ity of tablet 00:00: mouth 2 (two) Medical times Branch daily. montelukast Yes [id number] 10mg Take 1 Univers 10 mg 8-20 tablet by ity of tablet 00:00: mouth 00 daily. Medical Branch cetirizine Yes [id number] 10mg Take 1 U nivers (ZYRTEC) 10 8-20 tablet by ity of mg tablet 00:00: mouth [place] 00 daily. Medical Branch famotidine Yes [id number] 40mg Take 1 U nivers 40 mg 8-20 tablet by ity of tablet 00:00: mouth 2 00 (two) Medical times Branch daily. montelukast 0 Yes [id number] 10mg Take 1 Univers 10 mg 8-20 tablet by ity of tablet 00:00: mouth [place] 00 daily. Medical Branch cetirizine Yes [id number] 10mg Take 1 U nivers (ZYRTEC) 10 8-20 tablet by ity of mg tablet 00:00: mouth [place] 00 daily. Medical Branch famotidine Yes [id number] 40mg Take 1 U nivers 40 mg 8-20 tablet by ity of tablet 00:00: mouth 2 00 (two) Medical times Branch daily. montelukast Yes [id number] 10mg Take 1 Univers 10 mg 8-20 tablet by ity of tablet 00:00: mouth [place] 00 daily. Medical Branch cetirizine Yes [id number] 10mg Take 1 U nivers (ZYRTEC) 10 8-20 tablet by ity of mg tablet 00:00: mouth [place] 00 daily. Medical Branch famotidine Yes [id number] 40mg Take 1 U nivers 40 mg 8-20 tablet by ity of tablet 00:00: mouth 2 [place] 00 (two) Medical times Branch daily. montelukast Yes [id number] 10mg Take 1 Univers 10 mg 8-20 tablet by ity of tablet 00:00: mouth [place] 00 daily. Medical Branch cetirizine Yes [id number] 10mg Take 1 U nivers (ZYRTEC) 10 8-20 tablet by ity of mg tablet 00:00: mouth [place] 00 daily. Medical Branch famotidine Yes [id number] 40mg Take 1 U nivers 40 mg 8-20 tablet by ity of tablet 00:00: mouth 2 [place] 00 (two) Medical times Branch daily. montelukast Yes [id number] 10mg Take 1 Univers 10 mg 8-20 tablet by ity of tablet 00:00: mouth [place] 00 daily. Medical Branch cetirizine Yes [id number] 10mg Take 1 U nivers (ZYRTEC) 10 8-20 tablet by ity of mg tablet 00:00: mouth [place] 00 daily. Medical Branch famotidine Yes [id number] 40mg Take 1 U nivers 40 mg 8-20 tablet by ity of tablet 00:00: mouth 2 [place] 00 (two) Medical times Branch daily. montelukast Yes [id number] 10mg Take 1 Univers 10 mg 8-20 tablet by ity of tablet 00:00: mouth [place] 00 daily. Medical Branch predniSONE 2020- No [id number] 40mg Take 2 Univers 20 mg 8-20 08-28 tablets by ity of tablet 00:00: 04:59 mouth [place] 00 :00 daily for Medical 7 days. Branch predniSONE 2020- No [id number] 40mg Take 2 Univers 20 mg 8-20 08-28 tablets by ity of tablet 00:00: 04:59 mouth [place] 00 :00 daily for Medical 7 days. Branch predniSONE 2020- No [id number] 40mg Take 2 Univers 20 mg 8-20 08-28 tablets by ity of tablet 00:00: 04:59 mouth [place] 00 :00 daily for Medical 7 days. Branch predniSONE 2020- No [id number] 40mg Take 2 Univers 20 mg 8-20 08-28 tablets by ity of tablet 00:00: 04:59 mouth [place] 00 :00 daily for Medical 7 days. Branch albuterol-i Yes [id number] 1{puff} Inhale 1 Univers pratropium 8-19 Puff every ity of (COMBIVENT 00:00: 6 (six) [place] RESPIMAT) 00 hours. Medical 20-100 Need Branch mcg/actuati appointmen on inhaler t for more refills. albuterol-i Yes [id number] 1{puff} Inhale 1 Univers pratropium 8-19 Puff every ity of (COMBIVENT 00:00: 6 (six) [place] RESPIMAT) 00 hours. Medical 20-100 Need Branch mcg/actuati appointmen on inhaler t for more refills. albuterol-i Yes [id number] 1{puff} Inhale 1 Univers pratropium 8-19 Puff every ity of (COMBIVENT 00:00: 6 (six) [place] RESPIMAT) 00 hours. Medical 20-100 Need Branch mcg/actuati appointmen on inhaler t for more refills. albuterol-i Yes [id number] 1{puff} Inhale 1 Univers pratropium 8-19 Puff every ity of (COMBIVENT 00:00: 6 (six) [place] RESPIMAT) 00 hours. Medical 20-100 Need Branch mcg/actuati appointmen on inhaler t for more refills. albuterol-i Yes [id number] 1{puff} Inhale 1 Univers pratropium 8-19 Puff every ity of (COMBIVENT 00:00: 6 (six) [place] RESPIMAT) 00 hours. Medical 20-100 Need Branch mcg/actuati appointmen on inhaler t for more refills. albuterol-i 0 Yes [id number] 1{puff} Inhale 1 Univers pratropium 8-19 Puff every ity of (COMBIVENT 00:00: 6 (six) [place] RESPIMAT) 00 hours. Medical 20-100 Need Branch mcg/actuati appointmen on inhaler t for more refills. hydrOXYzine 2020-0 Yes [id number] 10mg Take 1 Univers 10 mg 8-17 tablet by ity of tablet 00:00: mouth [place] 00 every 6 Medical (six) Branch hours as needed for Itching. hydrOXYzine 0 Yes [id number] 10mg Take 1 Univers 10 mg 8-17 tablet by ity of tablet 00:00: mouth [place] 00 every 6 Medical (six) Branch hours as needed for Itching. hydrOXYzine 0 Yes [id number] 10mg Take 1 Univers 10 mg 8-17 tablet by ity of tablet 00:00: mouth [place] 00 every 6 Medical (six) Branch hours as needed for Itching. hydrOXYzine 0 Yes [id number] 10mg Take 1 Univers 10 mg 8-17 tablet by ity of tablet 00:00: mouth [place] 00 every 6 Medical (six) Branch hours as needed for Itching. hydrOXYzine 0 Yes [id number] 10mg Take 1 Univers 10 mg 8-17 tablet by ity of tablet 00:00: mouth [place] 00 every 6 Medical (six) Branch hours as needed for Itching. hydrOXYzine 0 Yes [id number] 10mg Take 1 Univers 10 mg 8-17 [...] Indication s: acute pain predniSONE 2020-0 Yes [id number] TAKE ONE Univers 20 mg 8-12 [id number] TABLET BY ity of tablet 00:00: MOUTH [place] 00 DAILY Medical Branch famotidine 2020-0 Yes [id number] 20mg Take 1 Univers 20 mg 8-12 tablet by ity of tablet 00:00: mouth 2 [place] 00 (two) Medical times Branch daily. traMADoL 2020-0 Yes [id number] 50mg Take 1 Univers (ULTRAM) 50 8-12 tablet by ity of mg tablet 00:00: mouth [place] 00 every 6 Medical (six) Branch hours as needed for Pain (scale 7-10). Indication s: acute pain predniSONE 2020-0 Yes [id number] TAKE ONE Univers 20 mg 8-12 [id number] TABLET BY ity of tablet 00:00: MOUTH [place] 00 DAILY Medical Branch famotidine 2020-0 Yes [id number] 20mg Take 1 Univers 20 mg 8-12 tablet by ity of tablet 00:00: mouth 2 [place] 00 (two) Medical times Branch daily. traMADoL 2020-0 Yes [id number] 50mg Take 1 Univers (ULTRAM) 50 8-12 tablet by ity of mg tablet 00:00: mouth [place] 00 every 6 Medical (six) Branch hours as needed for Pain (scale 7-10). Indication s: acute pain predniSONE 2020-0 Yes [id number] TAKE ONE Univers 20 mg 8-12 [id number] TABLET BY ity of tablet 00:00: MOUTH [place] 00 DAILY Medical Branch famotidine 2020-0 Yes [id number] 20mg Take 1 Univers 20 mg 8-12 tablet by ity of tablet 00:00: mouth 2 (two) Medical times Branch daily. traMADoL 2020-0 Yes [id number] 50mg Take 1 Univers (ULTRAM) 50 8-12 tablet by ity of mg tablet 00:00: mouth [place] 00 every 6 Medical (six) Branch hours as needed for Pain (scale 7-10). Indication s: acute pain predniSONE 2020-0 Yes [id number] TAKE ONE Univers 20 mg 8-12 [id number] TABLET BY ity of tablet 00:00: MOUTH [place] 00 DAILY Medical Branch famotidine 2020-0 Yes [id number] 20mg Take 1 Univers 20 mg 8-12 tablet by ity of tablet 00:00: mouth 2 [place] (two) Medical times Branch daily. traMADoL 2020-0 Yes [id number] 50mg Take 1 Univers (ULTRAM) 50 8-12 tablet by ity of mg tablet 00:00: mouth [place] 00 every 6 Medical (six) Branch hours as needed for Pain (scale 7-10). Indication s: acute pain predniSONE 2020-0 Yes [id number] TAKE ONE Univers 20 mg 8-12 [id number] TABLET BY ity of tablet 00:00: MOUTH 00 DAILY Medical Branch famotidine 2020-0 Yes [id number] 20mg Take 1 Univers 20 mg 8-12 tablet by ity of tablet 00:00: mouth 2 00 (two) Medical times Branch daily. traMADoL 2020-0 Yes [id number] 50mg Take 1 Univers (ULTRAM) 50 8-12 tablet by ity of mg tablet 00:00: mouth 00 every 6 Medical (six) Branch hours as needed for Pain (scale 7-10). Indication s: acute pain predniSONE 2020-0 Yes [id number] TAKE ONE Univers 20 mg 8-12 [id number] TABLET BY ity of tablet 00:00: MOUTH 00 DAILY Medical Branch famotidine 2020-0 Yes [id number] 20mg Take 1 Univers 20 mg 8-12 tablet by ity of tablet 00:00: mouth 2 [place] (two) Medical times Branch daily. cephALEXin 2020-0 2021- No [id number] 500mg Take 1 Univers (KEFLEX) 8-12 -24 [id number] capsule by it y of 500 mg 00:00: 00:00 mouth 4 [place] capsule 00 :00 (four) Medical times Branch daily. EPINEPHrine Yes Univer s 0.15 mg/0.3 8-05 ity of mL 00:00: [place] injection Medical Branch proMETHazin Yes Univer s e 12.5 mg 8-05 ity of tablet 00:00: Medical Branch EPINEPHrine 0 Yes Univer s 0.15 mg/0.3 8-05 ity of mL 00:00: [place] injection Medical Branch proMETHazin 0 Yes Univer s e 12.5 mg 8-05 ity of tablet 00:00: Medical Branch EPINEPHrine 0 Yes Univer s 0.15 mg/0.3 8-05 ity of mL 00:00: [place] injection Medical Branch proMETHazin 0 Yes Univer s e 12.5 mg 8-05 ity of tablet 00:00: Medical Branch EPINEPHrine 2020-0 Yes Univer s 0.15 mg/0.3 8-05 ity of mL 00:00: [place] injection Medical Branch proMETHazin 2021-0 Yes Univer s e 12.5 mg 8-05 ity of tablet 00:00: [place] [facility] EPINEPHrine 2020-0 Yes Univer s 0.15 mg/0.3 8-05 ity of mL 00:00: [place] injection Medical Branch proMETHazin 2020-0 Yes Univer s e 12.5 mg 8-05 ity of tablet 00:00: [place] [facility] EPINEPHrine 2020-0 Yes Univer s 0.15 mg/0.3 8-05 ity of mL 00:00: [place] injection Medical Branch proMETHazin 2020-0 Yes Univer s e 12.5 mg 8-05 ity of tablet 00:00: [place] [facility] mirtazapine 2020-0 Yes Univer s 7.5 mg 7-29 ity of tablet 00:00: [place] [facility] omeprazole 2020-0 Yes Univers 40 mg 7-29 ity of capsule 00:00: [place] [facility] mirtazapine 2020-0 Yes Univer s 7.5 mg 7-29 ity of tablet 00:00: [place] [id number] Medical Branch omeprazole 2020-0 Yes Univers 40 mg 7-29 ity of capsule 00:00: [place] [address] [facility] Branch mirtazapine 2020-0 Yes Univer s 7.5 mg 7-29 ity of tablet 00:00: [place] [address] [facility] omeprazole 2020-0 Yes Univers 40 mg 7-29 ity of capsule 00:00: [place] [address] [facility] mirtazapine 2020-0 Yes Univer s 7.5 mg 7-29 ity of tablet 00:00: [place] [address] [facility] omeprazole 2020-0 Yes [facility] 40 mg 7-29 ity of capsule 00:00: [place] [address] [facility] mirtazapine 2020-0 Yes Univer s 7.5 mg 7-29 ity of tablet 00:00: [place] [address] [facility] omeprazole 1-0 Yes Univers 40 mg 7-29 ity of capsule 00:00: [place] [facility] mirtazapine 2020-0 Yes Univer s 7.5 mg 7-29 ity of tablet 00:00: [place] [address] [facility] omeprazole 2020-0 Yes Univers 40 mg 7-29 ity of capsule 00:00: [place] [address] [facility] cyclobenzap 2020-0 Yes Univer s rine 10 mg 7-27 ity of tablet 00:00: [place] 00 [facility] cyclobenzap 2020-0 Yes Univer s rine 10 mg 7-27 ity of tablet 00:00: [place] 00 [facility] Branch cyclobenzap 2020-0 Yes Univer s rine 10 mg 7-27 ity of tablet 00:00: [place] [facility] cyclobenzap 2020-0 Yes Univer s rine 10 mg 7-27 ity of tablet 00:00: [place] 00 [facility] cyclobenzap 2020-0 Yes Univer s rine 10 mg 7-27 ity of tablet 00:00: [place] 00 [facility] Branch cyclobenzap 2020-0 Yes Univer s rine 10 mg 7-27 ity of tablet 00:00: [place] [facility] doxepin 100 2020-0 Yes Univer s mg capsule 7-19 ity of 00:00: [place] [facility] doxepin 100 2020-0 Yes Univer s mg capsule 7-19 ity of 00:00: [place] [facility] doxepin 100 2020-0 Yes Univer s mg capsule 7-19 ity of 00:00: [place] 00 [facility] Branch doxepin 100 2020-0 Yes Univer s mg capsule 7-19 ity of 00:00: [place] 00 [facility] Branch doxepin 100 2020-0 Yes Univer s mg capsule 7-19 ity of 00:00: [place] 00 [facility] Branch doxepin 100 2020-0 Yes Univer s mg capsule 7-19 ity of 00:00: [place] 00 [facility] BELSOMRA 20 2020-0 Yes Univer s mg Tab 6-25 ity of 00:00: [place] 00 [facility] Branch BELSOMRA 20 2020-0 Yes Univer s mg Tab 6-25 ity of 00:00: [place] 00 [facility] Branch BELSOMRA 20 2020-0 Yes Univer s mg Tab 6-25 ity of 00:00: [place] 00 [facility] Branch BELSOMRA 20 2020-0 Yes Univer s mg Tab 6-25 ity of 00:00: [place] 00 [facility] Branch BELSOMRA 20 2020-0 Yes Univer s mg Tab 6-25 ity of 00:00: [place] 00 [facility] Branch BELSOMRA 20 2020-0 Yes Univer s mg Tab 6-25 ity of 00:00: [place] 00 [facility] oxyCODONE-a Yes Univer s cetaminophe 6-24 ity of n 10-325 mg 00:00: [place] per tablet 00 Medical Branch oxyCODONE-a Yes Univer s cetaminophe 6-24 ity of n 10-325 mg 00:00: [place] per tablet 00 Medical Branch oxyCODONE-a Yes Univer s cetaminophe 6-24 ity of n 10-325 mg 00:00: [place] per tablet 00 Medical Branch oxyCODONE-a Yes Univer s cetaminophe 6-24 ity of n 10-325 mg 00:00: [place] per tablet 00 Medical Branch oxyCODONE-a Yes Univer s cetaminophe 6-24 ity of n 10-325 mg 00:00: [place] per tablet 00 Medical Branch oxyCODONE-a Yes Univer s cetaminophe 6-24 ity of n 10-325 mg 00:00: [place] per tablet 00 Medical Branch CARVEDILOL 0 Yes [id number] TAKE ONE Univers 6.25 mg 5-27 TABLET BY ity of tablet 00:00: MOUTH [place] 00 TWICE A Medical DAY WITH Branch MEALS FOR 90 DAYS CARVEDILOL 0 Yes [id number] TAKE ONE Univers 6.25 mg 5-27 TABLET BY ity of tablet 00:00: MOUTH [place] 00 TWICE A Medical DAY WITH Branch MEALS FOR 90 DAYS CARVEDILOL 0 Yes [id number] TAKE ONE Univers 6.25 mg 5-27 TABLET BY ity of tablet 00:00: MOUTH [place] 00 TWICE A Medical DAY WITH Branch MEALS FOR 90 DAYS CARVEDILOL 0 Yes [id number] TAKE ONE Univers 6.25 mg 5-27 TABLET BY ity of tablet 00:00: MOUTH [place] 00 TWICE A Medical DAY WITH Branch MEALS FOR 90 DAYS CARVEDILOL 0 Yes [id number] TAKE ONE Univers 6.25 mg 5-27 TABLET BY ity of tablet 00:00: MOUTH [place] 00 TWICE A Medical DAY WITH Branch MEALS FOR 90 DAYS CARVEDILOL 0 Yes [id number] TAKE ONE Univers 6.25 mg 5-27 TABLET BY ity of tablet 00:00: MOUTH [place] 00 TWICE A Medical DAY WITH Branch MEALS FOR 90 DAYS methylPREDN 2019- Yes [id number] Take by [facility] ISolone 2- 9106 mouth ity of (MEDROL, 00:00: SEE-INSTRU [place] NINI,) 4 mg 00 CTIONS. Medica l tablets follow Branch package directions cetirizine 2019-06 Yes [id number] 10mg Take 1 U nivers 10 mg 2-07 tablet by ity of tablet 00:00: mouth [place] 00 daily. Medical Branch methylPREDN 2019-06 Yes [id number] Take by [facility] ISolone 2- 9106 mouth ity of (MEDROL, 00:00: SEE-INSTRU [place] NINI,) 4 mg 00 CTIONS. Medica l tablets follow Branch package directions cetirizine 2019-06 Yes [id number] 10mg Take 1 U nivers 10 mg 2-07 tablet by ity of tablet 00:00: mouth [place] 00 daily. Medical Branch methylPREDN 2019-06 Yes [id number] Take by [facility] ISolone 07-28 9106 mouth ity of (MEDROL, 00:00: SEE-INSTRU [place] NINI,) 4 mg 00 CTIONS. Medica l tablets follow Branch package directions cetirizine 2019-06 Yes [id number] 10mg Take 1 U nivers 10 mg 2-07 tablet by ity of tablet 00:00: mouth [place] 00 daily. Medical Branch methylPREDN 2019-06 Yes [id number] Take by Univers ISolone 07-28 9106 mouth ity of (MEDROL, 00:00: SEE-INSTRU [place] NINI,) 4 mg 00 CTIONS. Medica l tablets follow Branch package directions cetirizine 2019-06 Yes [id number] 10mg Take 1 U nivers 10 mg 2-07 tablet by ity of tablet 00:00: mouth [place] 00 daily. Medical Branch methylPREDN 2019-06 Yes [id number] Take by Univers ISolone 2-07 mouth ity of (MEDROL, 00:00: SEE-INSTRU [place] NINI,) 4 mg 00 CTIONS. Medica l tablets follow Branch package directions cetirizine 2019-06 Yes [id number] 10mg Take 1 U nivers 10 mg 2-07 tablet by ity of tablet 00:00: mouth [place] 00 daily. Medical Branch methylPREDN 2019-06 Yes [id number] Take by Univers ISolone 2-07 mouth ity of (MEDROL, 00:00: SEE-INSTRU [place] NINI,) 4 mg 00 CTIONS. Medica l tablets follow Branch package directions cetirizine 2019-06 Yes [id number] 10mg Take 1 U nivers 10 mg 2-07 tablet by ity of tablet 00:00: mouth [place] 00 daily. Medical Branch benzonatate 2019-06- No [id number] 100mg Take 1 Univers (TESSALON 2-07 08-24 capsule by ity of PERLES) 100 00:00: 00:00 mouth 3 [place] mg capsule 00 :00 (three) Medica l times Branch daily as needed for Cough. budesonide- Yes [id number] 2{puff} Inhale 2 Univers formoteroL 8-21 [id number] Puffs 2 ity of (SYMBICORT) 00:00: (two) [place] 160-4.5 00 times Medical mcg/actuati daily. Branch on inhaler budesonide Yes [id number] 2{puff} Inhale 2 Univers formoteroL 8-21 [id number] Puffs 2 ity of (SYMBICORT) 00:00: (two) [place] 160-4.5 00 times Medical mcg/actuati daily. Branch on inhaler budesonide Yes [id number] 2{puff} Inhale 2 Univers formoteroL 8-21 [id number] Puffs 2 ity of (SYMBICORT) 00:00: (two) [place] 160-4.5 00 times Medical mcg/actuati daily. Branch on inhaler budesonide Yes [id number] 2{puff} Inhale 2 Univers formoteroL 8-21 [id number] Puffs 2 ity of (SYMBICORT) 00:00: (two) [place] 160-4.5 00 times Medical mcg/actuati daily. Branch on inhaler budesonide Yes [id number] 2{puff} Inhale 2 Univers formoteroL 8-21 [id number] Puffs 2 ity of (SYMBICORT) 00:00: (two) [place] 160-4.5 00 times Medical mcg/actuati daily. Branch on inhaler budesonide Yes [id number] 2{puff} Inhale 2 Univers formoteroL 8-21 [id number] Puffs 2 ity of (SYMBICORT) 00:00: (two) [place] 160-4.5 00 times Medical mcg/actuati daily. Branch on inhaler clonazePAM 2020-0 Yes 1mg Take 1 mg Un kzizy (KLONOPIN) 5-20 by mouth ity o f 1 mg tablet 14:46: daily. [address] vit A/vit 2020-0 Yes Take by [place] [facility] ers C/vit 5-20 mouth. ity of E/zinc/donell 14:46: [facility] ([place] [address] Medical AREDS ORAL) Branch clonazePAM 2020-0 Yes 1mg Take 1 mg Un kizzy (KLONOPIN) 5-20 by mouth ity o f 1 mg tablet 14:46: daily. [address] vit A/vit 2020-0 Yes Take by [place] [facility] ers C/vit 5-20 mouth. ity of E/zinc/donell 14:46: [facility] ([place] [address] Medical AREDS ORAL) Branch clonazePAM 2020-0 Yes 1mg Take 1 mg Un kizzy (KLONOPIN) 5-20 by mouth ity o f 1 mg tablet 14:46: daily. [address] vit A/vit 2020-0 Yes Take by [place] [facility] ers C/vit 5-20 mouth. ity of E/zinc/donell 14:46: [facility] ([place] [address] Medical AREDS ORAL) Branch clonazePAM 2020-0 Yes 1mg Take 1 mg Un kizzy (KLONOPIN) 5-20 by mouth ity o f 1 mg tablet 14:46: daily. [address] vit A/vit 2020-0 Yes Take by [place] [facility] ers C/vit 5-20 mouth. ity of E/zinc/donell 14:46: [facility] ([place] [address] Medical AREDS ORAL) Branch clonazePAM 2020-0 Yes 1mg Take 1 mg Un kizzy (KLONOPIN) 5-20 by mouth ity o f 1 mg tablet 09:46: daily. [address] vit A/vit 2020-0 Yes Take by [place] [facility] ers C/vit 5-20 mouth. ity of E/zinc/donell 09:46: [facility] ([place] [address] Medical AREDS ORAL) Branch clonazePAM 2020-0 Yes 1mg Take 1 mg Un kizzy (KLONOPIN) 5-20 by mouth ity o f 1 mg tablet 09:46: [place]. [place] vit A/vit Yes Take by [place] [facility] ers C/vit 5-20 mouth. ity of E/zinc/donell 09:46: [place] er (ICAPS 52 Medical AREDS ORAL) Branch benzonatate 2020- No [id number] 100mg Take 1 Univers (TESSALON 5-20 08-24 capsule by ity of DAVID) 100 00:00: 00:00 mouth 3 [place] mg capsule 00 :00 (three) Medica l times Branch daily as needed for Cough. budesonide- Yes [id number] 2{puff} Inhale 2 Univers formoteroL 5-12 Puffs 2 ity of (SYMBICORT) 00:00: (two) [place] 160-4.5 00 times Medical mcg/actuati daily. Branch on inhaler budesonide- Yes [id number] 2{puff} Inhale 2 Univers formoteroL 5-12 Puffs 2 ity of (SYMBICORT) 00:00: (two) [place] 160-4.5 00 times Medical mcg/actuati daily. Branch on inhaler budesonide- Yes [id number] 2{puff} Inhale 2 Univers formoteroL 5-12 Puffs 2 ity of (SYMBICORT) 00:00: (two) [place] 160-4.5 00 times Medical mcg/actuati daily. Branch on inhaler budesonide- Yes [id number] 2{puff} Inhale 2 Univers formoteroL 5-12 Puffs 2 ity of (SYMBICORT) 00:00: (two) [place] 160-4.5 00 times Medical mcg/actuati daily. Branch on inhaler budesonide- Yes [id number] 2{puff} Inhale 2 Univers formoteroL 5-12 Puffs 2 ity of (SYMBICORT) 00:00: (two) [place] 160-4.5 00 times Medical mcg/actuati daily. Branch on inhaler budesonide- Yes [id number] 2{puff} Inhale 2 Univers formoteroL 5-12 Puffs 2 ity of (SYMBICORT) 00:00: (two) [place] 160-4.5 00 times Medical mcg/actuati daily. Branch on inhaler albuterol Yes [id number] 2{puff} Inhale 2 Univers 90 4-03 Puffs ity of mcg/actuati 00:00: every 6 [place] on inhaler 00 (six) Medical hours as Branch needed for Wheezing or Shortness of Breath. albuterol Yes [id number] 2{puff} Inhale 2 Univers 90 4-03 Puffs ity of mcg/actuati 00:00: every 6 [place] on inhaler 00 (six) Medical hours as Branch needed for Wheezing or Shortness of Breath. albuterol Yes [id number] 2{puff} Inhale 2 Univers 90 4-03 Puffs ity of mcg/actuati 00:00: every 6 [place] on inhaler 00 (six) Medical hours as Branch needed for Wheezing or Shortness of Breath. albuterol Yes [id number] 2{puff} Inhale 2 Univers 90 4-03 Puffs ity of mcg/actuati 00:00: every 6 [place] on inhaler 00 (six) Medical hours as Branch needed for Wheezing or Shortness of Breath. albuterol Yes [id number] 2{puff} Inhale 2 Univers 90 4-03 Puffs ity of mcg/actuati 00:00: every 6 [place] on inhaler 00 (six) Medical hours as Branch needed for Wheezing or Shortness of Breath. albuterol Yes [id number] 2{puff} Inhale 2 Univers 90 4-03 Puffs ity of mcg/actuati 00:00: every 6 [place] on inhaler 00 (six) Medical hours as Branch needed for Wheezing or Shortness of Breath. traMADol 50 2018-0 Yes [id number] 50mg Take 1 U nivers mg tablet 9-16 tablet by ity o f 00:00: mouth [place] 00 every 6 Medical (six) Branch hours as needed for Pain (scale 4-6). ibuprofen 2018-0 Yes [id number] 800mg Take 1 Un kizzy 800 mg 9-16 tablet by ity of tablet 00:00: mouth 3 00 (three) Medical times Branch daily with meals. ranitidine 2018-0 Yes [id number] 150mg Take 1 U nivers 150 mg 9-16 tablet by ity of tablet 00:00: mouth 2 (two) Medical times Branch daily. traMADol 50 2019-0 Yes [id number] 50mg Take 1 U nivers mg tablet 9-16 tablet by ity o f 00:00: mouth [place] 00 every 6 Medical (six) Branch hours as needed for Pain (scale 4-6). ibuprofen 2019-0 Yes [id number] 800mg Take 1 Un kizzy 800 mg 9-16 tablet by ity of tablet 00:00: mouth 3 (three) Medical times Branch daily with meals. ranitidine 2018-0 Yes [id number] 150mg Take 1 U nivers 150 mg 9-16 tablet by ity of tablet 00:00: mouth (two) Medical times Branch daily. traMADol 50 2018-0 Yes [id number] 50mg Take 1 U nivers mg tablet 9-16 tablet by ity o f 00:00: mouth 00 every 6 Medical (six) Branch hours as needed for Pain (scale 4-6). ibuprofen 2018-0 Yes [id number] 800mg Take 1 Un kizzy 800 mg 9-16 tablet by ity of tablet 00:00: mouth (three) Medical times Branch daily with meals. ranitidine 2018-0 Yes [id number] 150mg Take 1 U nivers 150 mg 9-16 tablet by ity of tablet 00:00: mouth (two) Medical times Branch daily. traMADol 50 2018-0 Yes [id number] 50mg Take 1 U nivers mg tablet 9-16 tablet by ity o f 00:00: mouth [place] 00 every 6 Medical (six) Branch hours as needed for Pain (scale 4-6). ibuprofen 2019-0 Yes [id number] 800mg Take 1 Un kizzy 800 mg 9-16 tablet by ity of tablet 00:00: mouth (three) Medical times Branch daily with meals. ranitidine 2019-0 Yes [id number] 150mg Take 1 U nivers 150 mg 9-16 tablet by ity of tablet 00:00: mouth 2 (two) Medical times Branch daily. traMADol 50 2018-0 Yes [id number] 50mg Take 1 U nivers mg tablet 9-16 tablet by ity o f 00:00: mouth [place] 00 every 6 Medical (six) Branch hours as needed for Pain (scale 4-6). ibuprofen 2019-0 Yes [id number] 800mg Take 1 Un kizzy 800 mg 9-16 tablet by ity of tablet 00:00: mouth 3 [place] 00 (three) Medical times Branch daily with meals. ranitidine 2018-0 Yes [id number] 150mg Take 1 U nivers 150 mg 9-16 tablet by ity of tablet 00:00: mouth 2 [place] 00 (two) Medical times Branch daily. traMADol 50 2019-0 Yes [id number] 50mg Take 1 U nivers mg tablet 9-16 tablet by ity o f 00:00: mouth [place] 00 every 6 Medical (six) Branch hours as needed for Pain (scale 4-6). ibuprofen Yes [id number] 800mg Take 1 Un kizzy 800 mg 9-16 tablet by ity of tablet 00:00: mouth 3 00 (three) Medical times Branch daily with meals. ranitidine Yes [id number] 150mg Take 1 U nivers 150 mg 9-16 tablet by ity of tablet 00:00: mouth 2 [place] 00 (two) Medical times Branch daily. cetirizine Yes [id number] 10mg Take 1 U nivers 10 mg 9-13 tablet by ity of tablet 00:00: mouth [place] 00 daily. Medical Branch cetirizine Yes [id number] 10mg Take 1 U nivers 10 mg 9-13 tablet by ity of tablet 00:00: mouth [place] 00 daily. Medical Branch cetirizine Yes [id number] 10mg Take 1 U nivers 10 mg 9-13 tablet by ity of tablet 00:00: mouth [place] 00 daily. Medical Branch cetirizine Yes [id number] 10mg Take 1 U nivers 10 mg 9-13 tablet by ity of tablet 00:00: mouth [place] 00 daily. Medical Branch cetirizine Yes [id number] 10mg Take 1 U nivers 10 mg 9-13 tablet by ity of tablet 00:00: mouth [place] 00 daily. Medical Branch cetirizine Yes [id number] 10mg Take 1 U nivers 10 mg [...] FIRST DOSE IN THE MORNING fluticasone Yes [id number] 2{spray Use 2 Univers 50 5-08 } Sprays in ity of mcg/actuati 00:00: each [place] on nasal 00 nostril 2 Medica l spray (two) Branch times daily. montelukast Yes [id number] 10mg Take 1 Univers 10 mg 5-08 tablet by ity of tablet 00:00: mouth [place] 00 daily. Medical Branch fluticasone Yes [id number] 2{spray Use 2 Univers 50 5-08 } Sprays in ity of mcg/actuati 00:00: each [place] on nasal 00 nostril 2 Medica l spray (two) Branch times daily. montelukast 2018- Yes [id number] 10mg Take 1 Univers 10 mg 5-08 tablet by ity of tablet 00:00: mouth [place] 00 daily. Medical Branch fluticasone Yes [id number] 2{spray Use 2 Univers 50 5-08 } Sprays in ity of mcg/actuati 00:00: each [place] on nasal 00 nostril 2 Medica l spray (two) Branch times daily. montelukast 2019-0 Yes [id number] 10mg Take 1 Univers 10 mg 5-08 tablet by ity of tablet 00:00: mouth [place] 00 daily. Medical Branch fluticasone 2019-0 Yes [id number] 2{spray Use 2 Univers 50 5-08 } Sprays in ity of mcg/actuati 00:00: each [place] on nasal 00 nostril 2 Medica l spray (two) Branch times daily. montelukast 2019-0 Yes [id number] 10mg Take 1 Univers 10 mg 5-08 tablet by ity of tablet 00:00: mouth [place] 00 daily. Medical Branch fluticasone 2019-0 Yes [id number] 2{spray Use 2 Univers 50 5-08 } Sprays in ity of mcg/actuati 00:00: each [place] on nasal 00 nostril 2 Medica l spray (two) Branch times daily. montelukast 2019-0 Yes [id number] 10mg Take 1 Univers 10 mg 5-08 tablet by ity of tablet 00:00: mouth [place] 00 daily. Medical Branch fluticasone 2019-0 Yes [id number] 2{spray Use 2 Univers 50 5-08 } Sprays in ity of mcg/actuati 00:00: each [place] on nasal 00 nostril 2 Medica l spray (two) Branch times daily. montelukast 2019-0 Yes [id number] 10mg Take 1 Univers 10 mg 5-08 tablet by ity of tablet 00:00: mouth [place] 00 daily. Medical Branch Cholecalcif 2019-0 Yes [id number] 5000U Take 1 Univers [place], 2-25 tablet by ity of Vitamin D3, 00:00: mouth [place] (VITAMIN 00 daily. Medical D3) 5,000 Take with Branc h unit tablet food. Cholecalcif 2019-0 Yes [id number] 5000U Take 1 Univers [place], 2-25 tablet by ity of Vitamin D3, 00:00: mouth [place] (VITAMIN 00 daily. Medical D3) 5,000 Take with Branc h unit tablet food. Cholecalcif 2019-0 Yes [id number] 5000U Take 1 Univers [place], 2-25 tablet by ity of Vitamin D3, 00:00: mouth [place] (VITAMIN 00 daily. Medical D3) 5,000 Take with Branc h unit tablet food. Cholecalcif Yes [id number] 5000U Take 1 Univers [place], 2-25 tablet by ity of Vitamin D3, 00:00: mouth [place] (VITAMIN 00 daily. Medical D3) 5,000 Take with Branc h unit tablet food. Cholecalcif Yes [id number] 5000U Take 1 Univers [place], 2-25 tablet by ity of Vitamin D3, 00:00: mouth [place] (VITAMIN 00 daily. Medical D3) 5,000 Take with Branc h unit tablet food. Cholecalcif Yes [id number] 5000U Take 1 Univers [place], 2-25 tablet [...] [place] tablet 00 daily. Medical Branch SERTraline Yes 100mg Take 100 Un kizzy 100 mg 9-26 mg by ity of tablet 00:00: mouth 2 [place] 00 (two) Medical times Branch daily. SERTraline Yes 100mg Take 100 Un kizzy 100 [...] Immunizations Ordered Filled Immunization Date Status Comments [facility] e Immunization Name Name SARS-COV-2 COVID-19 2020-08-19 Completed Unive rsity of PFIZER VACCINE 00:00:00 [facility] SARS-COV-2 COVID-19 2020-08-19 Completed Unive rsity of PFIZER VACCINE 00:00:00 [facility] SARS-COV-2 COVID-19 2020-08-19 Completed Unive rsity of PFIZER VACCINE 00:00:00 [facility] SARS-COV-2 COVID-19 2020-08-19 Completed Unive rsity of PFIZER VACCINE 00:00:00 [facility] SARS-COV-2 COVID-19 2020-08-19 Completed Unive rsity of PFIZER VACCINE 00:00:00 [facility] SARS-COV-2 COVID-19 2020-08-19 Completed Unive rsity of PFIZER VACCINE 00:00:00 [facility] SARS-COV-2 COVID-19 2020-07-16 Completed Unive rsity of PFIZER VACCINE 00:00:00 [facility] SARS-COV-2 COVID-19 2020-07-16 Completed Unive rsity of PFIZER VACCINE 00:00:00 [facility] SARS-COV-2 COVID-19 2020-07-16 Completed Unive rsity of PFIZER VACCINE 00:00:00 [facility] SARS-COV-2 COVID-19 2020-07-16 Completed Unive rsity of PFIZER VACCINE 00:00:00 [facility] SARS-COV-2 COVID-19 2020-07-16 Completed Unive rsity of PFIZER VACCINE 00:00:00 [facility] SARS-COV-2 COVID-19 2020-07-16 Completed Unive rsity of PFIZER VACCINE 00:00:00 [facility] Influenza Virus 2018-03-24 Completed Universit y of Vaccine Quad IM 3+ 00:00:00 [facility] Pneumococcal 2018-03-24 Completed University o f Polysaccharide, 00:00:00 [place] Med ical PPSV23 (PNEUMOVAX) Branch Influenza Virus 2018-03-24 Completed Universit y of Vaccine Quad IM 3+ 00:00:00 [facility] Pneumococcal 2018-03-24 Completed University o f Polysaccharide, 00:00:00 [place] Med ical PPSV23 (PNEUMOVAX) Branch Influenza Virus 2018-03-24 Completed Universit y of Vaccine Quad IM 3+ 00:00:00 [facility] Pneumococcal 2018-03-24 Completed University o f Polysaccharide, 00:00:00 [place] Med ical PPSV23 (PNEUMOVAX) Branch Influenza Virus 2018-03-24 Completed Universit y of Vaccine Quad IM 3+ 00:00:00 [facility] Pneumococcal 2018-03-24 Completed University o f Polysaccharide, 00:00:00 [place] Med ical PPSV23 (PNEUMOVAX) Branch Influenza Virus 2018-03-24 Completed Universit y of Vaccine Quad IM 3+ 00:00:00 [facility] Pneumococcal 2018-03-24 Completed University o f Polysaccharide, 00:00:00 [place] Med ical PPSV23 (PNEUMOVAX) Branch Influenza Virus 2018-03-24 Completed Universit y of Vaccine Quad IM 3+ 00:00:00 [facility] Pneumococcal 2018-03-24 Completed University o f Polysaccharide, 00:00:00 [place] Med ical PPSV23 (PNEUMOVAX) Branch TDAP 2017-01-19 Completed University of 00:00:00 [facility] TDAP 2017-01-19 Completed University of 00:00:00 [facility] TDAP 2017-01-19 Completed University of 00:00:00 [facility] TDAP 2017-01-19 Completed University of 00:00:00 [facility] TDAP 2017-01-19 Completed University of 00:00:00 [facility] TDAP 2017-01-19 Completed University of 00:00:00 [facility] Zoster(Zostavax)( 2016-05-27 Completed Unive rsity of ingles) 00:00:00 [facility] Zoster(Zostavax)( 2016-05-27 Completed Unive rsity of ingles) 00:00:00 [facility] Zoster(Zostavax)( 2016-05-27 Completed Unive rsity of ingles) 00:00:00 [facility] Zoster(Zostavax)( 2016-05-27 Completed Unive rsity of ingles) 00:00:00 [facility] Zoster(Zostavax)( 2016-05-27 Completed Unive rsity of ingles) 00:00:00 [facility] Zoster(Zostavax)( 2016-05-27 Completed Unive rsity of ingles) 00:00:00 [facility] Pneumococcal 2016-05-14 Completed University o f Polysaccharide, 00:00:00 [place] Med ical PPSV23 (PNEUMOVAX) Branch Pneumococcal 2016-05-14 Completed University o f Polysaccharide, 00:00:00 [place] Med ical PPSV23 (PNEUMOVAX) Branch Pneumococcal 2016-05-14 Completed University o f Polysaccharide, 00:00:00 [place] Med ical PPSV23 (PNEUMOVAX) Branch Pneumococcal 2016-05-14 Completed University o f Polysaccharide, 00:00:00 [place] Med ical PPSV23 (PNEUMOVAX) Branch Pneumococcal 2016-05-14 Completed University o f Polysaccharide, 00:00:00 [place] Med ical PPSV23 (PNEUMOVAX) Branch Pneumococcal 2016-05-14 Completed University o f Polysaccharide, 00:00:00 [place] Med ical PPSV23 (PNEUMOVAX) Branch Vital Signs Vital Name Observation Time Observation Value Comments Source Systolic blood 2021-08-30 15:57:00 127 mm[Hg] Univer sity of pressure [facility] Diastolic blood 2021-08-30 15:57:00 98 mm[Hg] Unive rsity of pressure [facility] Heart rate 2021-08-30 15:57:00 73 /min [facility] Respiratory rate 2021-08-30 15:57:00 18 /min [facility] Body weight 2021-08-30 15:57:00 99.791 kg [facility] [place] [facility] BMI 2021-08-30 15:57:00 33.45 kg/m2 [facility] ty [facility] [place] [facility] Oxygen saturation in 2021-08-30 15:57:00 98 /min University of Arterial blood by [place] [employer] dave Pulse oximetry Branch Systolic blood 2021-06-24 14:15:00 165 mm[Hg] Univer sity of pressure [place] [facility] Diastolic blood 2021-06-24 14:15:00 82 mm[Hg] Unive rsity of pressure [place] [facility] Heart rate 2021-06-24 14:15:00 95 /min [facility] [place] [facility] Body temperature 2021-06-24 14:15:00 37.33 [place] Univ ersity of [place] [facility] Respiratory rate 2021-06-24 14:15:00 20 /min Univ ersity of [place] [facility] Branch Body weight 2021-06-24 14:15:00 99.791 kg [facility] BMI 2021-06-24 14:15:00 33.45 kg/m2 [facility] Oxygen saturation in 2021-06-24 14:15:00 98 /min [facility] blood by [place] [employer] dave Pulse oximetry Branch Heart rate 2021-02-14 05:30:00 106 /min [facility] Respiratory rate 2021-02-14 05:30:00 16 /min [facility] [place] [facility] Systolic blood 2021-02-14 05:00:00 151 mm[Hg] [facility] Diastolic blood 2021-02-14 05:00:00 90 mm[Hg] [facility]ive [facility] Oxygen saturation in 2021-02-14 05:00:00 97 /min [facility] Ar[facility]ial blood by [place] [employer] dave Pulse oximetry Branch Body temperature 2021-02-14 00:57:00 37.33 [place] [facility] Body weight 2021-02-14 00:57:00 100.699 kg [facility] BMI 2021-02-14 00:57:00 33.75 kg/m2 [facility] Systolic blood 2021-02-13 11:30:00 164 mm[Hg] Univer sity of pressure [facility] Diastolic blood 2021-02-13 11:30:00 85 mm[Hg] Unive rsity of pressure [facility] Heart rate 2021-02-13 11:30:00 91 /min Universi ty of [facility] Respiratory rate 2021-02-13 11:30:00 16 /min [facility] Oxygen saturation in 2021-02-13 11:30:00 96 /min [facility] Arterial blood by [facility] Pulse oximetry Branch Body temperature 2021-02-13 05:45:00 36.89 Chelle Univ ersity of [facility] Systolic blood 2021-02-11 14:24:00 139 mm[Hg] Univer sity of pressure [facility] Diastolic blood 2021-02-11 14:24:00 75 mm[Hg] Unive rsity of pressure [facility] Heart rate 2021-02-11 14:19:00 83 /min Universi ty [facility] Body temperature 2021-02-11 14:19:00 36.83 Chel[place] [facility] ersity of [facility] Respiratory rate 2021-02-11 14:19:00 16 /min Univ ersity of [facility] Body height 2021-02-11 14:19:00 172.7 cm [facility] Body weight 2021-02-11 14:19:00 101.016 kg [facility] BMI 2021-02-11 14:19:00 33.86 kg/m2 [facility] Oxygen saturation in 2021-02-11 14:19:00 97 /min [facility] Arterial blood by [facility] Pulse oximetry Branch Procedures Procedure Date / Time Performing Clinician Source Performed MAGNESIUM 2021-08-30 16:28:00 Nicolette Campbell [facility] COMP. METABOLIC PANEL 2021-08-30 16:28:00 Nicolette Campbell [facility] ([id number]) [facility] CBC WITH DIFF 2021-08-30 16:28:00 Nicolette Campbell [facility] URINALYSIS 2021-06-24 14:44:00 Jose Ross [facility] CONSENT/REFUSAL FOR 2021-06-24 14:10:11 Doctor Unassigned, No [facility] [place] [facility] Name Medical Branch XR CHEST 1 VW 2021-02-14 03:23:19 Bertin Sanchez [facility] URINALYSIS 2021-02-14 02:54:00 Bertin Sanchez [facility] URINE DRUG (IMMUNOASSAY) 2021-02-14 02:54:00 [facility] Medical Bra nch SCREEN W/O REFLEX TROPONIN I 2021-02-14 01:36:00 Bertin Sanchez [facility] COMP. METABOLIC PANEL 2021-02-14 01:36:00 Bertin Sanchez [facility] ([id number]) Medical Branch CBC WITH DIFF 2021-02-14 01:36:00 Bertin Sanchez [facility] COVID-19 (ID NOW RAPID 2021-02-14 01:26:00 Bertin Sanchez [facility] TESTING) Medical Branch TROPONIN I 2021-02-13 10:56:00 Vishal Agarwal o f [facility] CT CHEST PULMONARY 2021-02-13 10:28:40 Mallory Lopez [facility] ANGIOGRAM Medical Branch XR CHEST 1 VW 2021-02-13 06:37:29 Mallory Lopez [facility] TROPONIN I 2021-02-13 06:27:00 Mallory Lopez [facility] BASIC METABOLIC PANEL 2021-02-13 06:27:00 Mallory Lopez [facility] (NA, K, CL, CO2, Medical Branch GLUCOSE, BUN, CREATININE, CA) CBC WITH DIFF 2021-02-13 06:27:00 Mallory Lopez [facility] D-DIMER 2021-02-13 06:27:00 Mallory Lopez [facility] N-TERMINAL PRO-BNP 2021-02-13 06:27:00 Mallory Lopez [facility] Plan of Care Planned Activity Planned Date Details Comments Source Future Scheduled Test Hepatitis C screening [facility] (procedure) [code = 034432865] Future Scheduled Test BREAST CANCER SCREENING [facility] [code = BREAST CANCER SCREENING] Future Scheduled Test COLONOSCOPY SCREENING [facility] [code = COLONOSCOPY SCREENING] Future Scheduled Test SHINGLES VACCINES (#2) [facility] [code = SHINGLES VACCINES (#2)] Future Scheduled Test INFLUENZA VACCINE [code [facility] = INFLUENZA VACCINE] Future Scheduled Test 65+ PNEUMOCOCCAL Me [facility] VACCINE (2 of 2) [code = 65+ PNEUMOCOCCAL VACCINE (2 of 2)] Encounters Start End Encounter Admission Attending Care Care Encounter Source Date/Time Date/Time Type Type Clinicians Facility Department ID 2021-04-21 Emergency [facility] [id number] Univers 18:27:17 ity of [facility] 2021-04-21 [facility] [id number] Univers 18:11:05 ity [facility] 2021-04-21 [facility] [id number] Univers 16:10:46 ity [facility] 2021-04-21 [facility] [id number] Univers 14:58:19 ity [facility] 2021-04-21 [facility] [id number] Univers 14:56:27 ity [facility] 2021-04-18 [facility] [id number] Univers 22:14:38 ity [facility] 2021-04-18 [facility] [id number] Univers 19:38:58 [facility] 2021-10-03 2021-10-03 Outpatient R [facility] [id number] Univers 18:45:00 18:45:00 [id number] ity [facility] 2021-10-03 2021-10-03 [facility] [id number] Univers 18:45:00 18:45:00 ANNA iraheta o f [facility] 2021-08-30 2021-08-30 Emergency [facility] [id number] Univers 09:58:00 11:52:00 NICOLETTE corcorany [facility] 2021-08-30 2021-08-30 Emergency [facility] [id number] Univers 09:58:00 11:52:00 Nicolette Ortega BITTINGER [id number] i ty [facility] 4.2.7.2.686 [facility] [id number] [address] 2021-06-24 2021-06-24 Emergency X , [facility] ERT [id number] Univers 08:18:00 10:03:00 JOSE jewellyoselyn [facility] 2021-06-24 2021-06-24 Emergency [facility] 1.2.029.028 [id number] Univers 08:18:00 10:03:00 Jose NOGUEIRA [id number] i ty [facility] 4.2.7.2.686 [facility] [id number] [address] 2021-06-22 2021-06-22 Outpatient R [facility] [id number] -[id number] Univers 13:30:00 13:30:00 [id number] ity [facility] 2021-06-18 2021-06-18 Outpatient Kautz_S DMG DMG [id number] Devoted 06:07:00 06:07:00 [id number] Medica l [facility] 2021-02-21 2021-02-21 Emergency ER Nicolás, STLSJM STLSJM [id number] 09:55:00 09:55:00 Jesse -[id number] [facility] ([facility]) 2021-02-13 2021-02-14 Emergency Bertin Sanchez [facility] 1.2.840 .114 [id number] Univers 19:53:00 00:56:00 Nicolette Campbell [id number] ity of [place] [address] [place] [id number] 2021-02-13 2021-02-13 Emergency [facility] 1.2.814.170 [id number] Univers 00:40:00 07:13:00 Mallory Nogueira [id number] ity of [place] 4.2.7.[address] [place] [id number] 2021-02-12 2021-02-12 Letter KAROLYN Tyler 1.2.840.114 [id number] Univers 00:00:00 00:00:00 (Out) Janice BOWSER [id number] it y of [facility] 4.2.7.2.686 Braulio as [id number] [address] 2021-02-11 2021-02-11 Urgent [facility] 1.2.840.114 [id number] Univers 09:06:50 09:26:50 Care [facility] [id number] it y of [place] 4.2.7.2.686 Braulio as Kyrie?Blea [phone] [address] Medical Office Building 2021-02-11 2021-02-11 Outpatient R [facility] [id number] -[id number] Univers 09:00:00 09:00:00 [id number] y [facility] 2021-02-11 2021-02-11 Outpatient R [facility] [id number] Univers 09:00:00 09:00:00 [facility] 2021-02-07 2021-02-07 Outpatient R [facility] [id number] -[id number] Univers 14:20:00 14:20:00 [id number] [facility] 2021-02-07 2021-02-07 Outpatient R UNKNOWN, [facility] [id number] Univers 14:20:00 14:20:00 ATTENDING [facility] 2021-02-03 2021-02-03 Outpatient OWENS_T DMG DMG [id number] Devoted 08:30:00 08:30:00 0816 Medica l Group 2021-01-30 2021-01-30 Emergency [facility] [id number] 06:55:00 10:29:00 Vishal Nogueira 350.1.13.10 [place] 4.2.7.2.686 Jay [id number] [id number] 2021-01-29 2021-01-30 [facility] 1.2.160.836 [id number] 21:35:00 01:50:00 Liana Nogueira 350.1.13.10 [place] 4.2.7.2.686 Jay [id number] 084 2021-01-29 2021-01-29 Outpatient R [facility] [id number] -[id number] Univers 15:00:00 15:00:00 [id number] [facility] 2021-01-03 2021-01-03 Outpatient OWENS_T DMG [facility] [id number] [id number] Devoted 05:35:00 05:35:00 0716 Medica l Group 2020-11-20 2020-11-20 Outpatient [facility] [id number] Devoted 11:00:00 11:00:00 0602 Medica l Group 2020-11-18 2020-11-18 [facility] 1.2.840.114 [id number] 00:00:00 00:00:00 Jerzy Nogueira 350.1.13.10 [place] 4.2.7.2.686 Professio [phone] nal 085 [facility] 2020-11-14 2020-11-14 [facility] 1.2.840.114 [id number] 00:00:00 00:00:00 Ramon Nogueira 350.1.13.10 [place] 4.2.7.2.686 Professio [id number] nal 059 [facility] 2020-10-16 2020-10-16 Isabel [facility] 1.2.840.114 [id number] 00:00:00 00:00:00 Jerzy Nogueira 350.1.13.10 [place] 4.2.7.2.686 Professio [id number] nal 5 [facility] 2020-10-01 2020-10-01 Treatment Roy, Cr 1.2.840.1 [id number] Methodi 15:27:18 16:08:34 Beny Richardson 74987.1.[address] 3.430.2.7 Hospit a .3.741507 l .8 2020-10-01 2020-10-01 Travel 1.2.840.1 1.2.591.830 [id number] Methodi 00:00:00 00:00:[address] 3.430.2.7 0.2.7.3.698 Ho spita .3.911824 084.8 l .8 2020-09-19 2020-09-19 Treatment Roy, Cr 1.2.840.1 [id number] Methodi 14:47:22 16:15:02 Beny Richardson 87744.1.[address] 3.430.2.7 Hospit a .3.504828 l .8 2020-09-19 2020-09-19 Travel 1.2.840.1 1.2.919.737 [id number] Methodi 00:00:00 00:00:[address] 3.430.2.7 0.2.7.3.698 Ho spita .3.841106 084.8 l .8 2020-09-17 2020-09-17 Documentat Dylan, 1.2.840.1 [id number] Methodi 00:00:00 00:00:00 morales Swan [address]148[address]1.[address] 3.430.2.7 Hospit a .3.511209 l .8 2020-09-04 2020-09-04 Treatment Roy, Cr 1.2.840.1 [id number] Methodi 15:21:22 16:38:[address].1.[address] 3.430.2.7 Hospit a .3.680439 l .8 2020-09-04 2020-09-04 Plan of 1.2.840.1 [id number] 2378 Methodi 00:00:00 00:00:[address] Documentat 3.430.2.7 Hos marian ion .3.453059 l .8 2020-09-04 2020-09-04 Travel 1.2.840.1 1.2.833.844 4112 [id number] Methodi 00:00:00 00:00:[address] 3.430.2.7 0.2.7.3.698 Ho spita .3.701896 084.8 l .8 2020-08-28 2020-08-28 Treatment Roy, Cr 1.2.840.1 [id number] Methodi 13:52:33 16:45:[address] 3.430.2.7 Hospit a .3.053082 l .8 2020-08-28 2020-08-28 Travel 1.2.840.1 1.2.002.797 2156 [id number] Methodi 00:00:00 00:00:[address] 3.430.2.7 0.2.7.3.698 Ho spita .3.576674 084.8 l .8 2020-08-28 2020-08-28 Plan of 1.2.840.1 [id number] 3889 Methodi 00:00:00 00:00:[address] Documentat 3.430.2.7 Hos marian ion .3.565759 l .8 2020-08-20 2020-08-20 Outpatient Harvey SOFIA [facility] [id number] -[id number] Univers 10:00:00 10:00:00 SENDIL [id number] [facility] 2020-08-20 2020-08-20 Outpatient Harvey SOFIA [facility] [id number] Univers 10:00:00 10:00:00 SENDIL [facility] 2020-08-20 2020-08-20 Travel 1.2.840.1 1.2.212.350 [id number] Methodi 00:00:00 00:00:[address] 3.430.2.7 0.2.7.3.698 Ho spita .3.321941 084.8 l .8 2020-08-19 2020-08-19 Outpatient Harvey KIM [facility] [id number] Univers 14:00:00 14:00:00 AURELIA [id number] [facility] 2020-08-19 2020-08-19 Outpatient Harvey KIM [facility] [id number] Univers 14:00:00 14:00:00 AURELIA [facility] 2020-08-13 2020-08-13 Travel 1.2.840.1 1.2.056.910 [id number] Methodi 00:00:00 00:00:[address] 3.430.2.7 0.2.7.3.698 Ho spita .3.930366 084.8 l .8 2020-08-06 2020-08-06 [facility] [id number] Univers 11:50:00 11:50:00 AURELIA [id number] [facility] 2020-08-06 2020-08-06 [facility] [id number] Univers 11:50:00 11:50:00 AURELIA [facility] 2020-07-30 2020-07-30 Travel 1.2.840.1 1.2.914.086 [id number] Methodi 00:00:00 00:00:[address] 3.430.2.7 0.2.7.3.698 Ho spita .3.761877 084.8 l .8 2020-07-22 2020-07-22 Transcribe Roy, 1.2.840.1 [id number] Methodi 00:00:00 00:00:[place] [address] 3.430.2.7 Hospit a .3.144153 l .8 2020-07-16 2020-07-16 Outpatient Harvey KIM [facility] [id number] Univers 11:00:00 11:00:00 AURELIA [id number] [facility] 2020-07-16 2020-07-16 [facility] [id number] Univers 11:00:00 11:00:00 AURELIA [facility] 2020-06-27 2020-06-27 Outpatient JERZY COSME [facility] [id number] Univers 14:20:00 14:20:00 JERZY RANGEL [id number] i ty of [facility] 2020-06-27 2020-06-27 Outpatient R JERZY RANGEL [facility] [id number] Univers 14:20:00 14:20:00 JERZY RANGEL i ty of [facility] 2020-06-17 2020-06-17 Urgent Erin, [facility] 1.2.840.114 [id number] 18:48:25 19:08:25 Care [facility] 350.1.13.10 [place] 4.2.7.2.686 Professio [id number] nal [address] 2020-06-17 2020-06-17 Outpatient R [facility] [id number] -[id number] Univers 19:00:00 19:00:00 [id number] ity [facility] 2020-06-17 2020-06-17 [facility] [id number] Univers 19:00:00 19:00:00 GARY ity [facility] 2020-05-27 2020-05-27 Urgent [facility] 1.2.840.114 [id number] 16:58:39 17:55:24 Care [facility] 350.1.13.10 [place] 4.2.7.2.686 Professio [id number] nal 0[address] 2020-05-27 2020-05-27 Outpatient R [facility] [id number] -[id number] Univers 17:00:00 17:00:00 ity [facility] 2020-05-27 2020-05-27 Outpatient R LILLY [facility] [id number] Univers 17:00:00 17:00:00 GARY ity [facility] 2020-03-04 2020-03-04 Outpatient R [facility] [id number] -[id number] Univers 11:15:00 11:15:00 [id number] ity [facility] 2020-03-04 2020-03-04 Outpatient R ANGELINA SAEZ [facility] [id number] Univers 11:15:00 11:15:00 ity [facility] 2020-02-22 2020-02-22 Outpatient R [facility] [id number] Univers 14:00:00 14:00:00 ity of [facility] 2020-02-22 2020-02-22 Outpatient R ANGELINA SAEZ [facility] [id number] Univers 14:00:00 14:00:00 ity of [facility] 2020-02-21 2020-02-21 Outpatient R [facility] [id number] Univers 15:00:00 15:00:00 ity of [facility] 2020-02-21 2020-02-21 Outpatient R [facility] [id number] Univers 10:00:00 10:00:00 ity of [facility] 2020-02-21 2020-02-21 Outpatient R [facility] [id number] Univers 10:00:00 10:00:00 ity of [facility] 2020-02-16 2020-02-16 Outpatient R BISMARK [facility] [id number] Univers 09:00:00 09:00:00 SENDIL [id number] ity of [facility] 2020-02-16 2020-02-16 Outpatient R ANGELINA SAEZ [facility] [id number] Univers 08:15:00 08:15:00 ity of [facility] 2020-02-15 2020-02-15 Outpatient R BISMARK [facility] [id number] Univers 09:00:00 09:00:00 SENDIL [id number] ity of [facility] 2020-02-15 2020-02-15 Outpatient R BISMARK [facility] [id number] Univers 09:00:00 09:00:00 SENDIL ity of [facility] 2020-02-09 2020-02-09 Outpatient R JERZY RANGEL [facility] [id number] Univers 14:40:00 14:40:00 JERZY RANGEL [id number] i ty of [facility] 2020-02-09 2020-02-09 Outpatient R JERZY RANGEL [facility] 10 [id number] Univers 14:40:00 14:40:00 JERZY RANGEL i ty of [facility] 2020-01-25 2020-01-25 Outpatient R JERZY RANGEL [facility] [id number] Univers 13:00:00 13:00:00 JERZY RANGEL i ty of [facility] 2020-01-25 2020-01-25 Outpatient R JERZY RANGEL [facility] [id number] Univers 13:00:00 13:00:00 JERZY RANGEL i ty of [facility] 2020-01-05 2020-01-05 Outpatient R CLAIRE JERZY [facility] [id number] Univers 11:40:00 11:40:00 JERZY RANGEL [id number] i ty of [facility] 2020-01-05 2020-01-05 Outpatient R JERZY RANGEL [facility] [id number] Univers 11:40:00 11:40:00 JERZY RANGEL i ty of [facility] 2019-11-08 2019-11-08 Outpatient R [facility] [id number] Univers 10:20:00 10:20:00 ity of [facility] 2019-11-08 2019-11-08 Outpatient R [facility] [id number] Univers 10:20:00 10:20:00 ity of [facility] 2019-10-05 2019-10-05 Outpatient R JERZY RANGEL [facility] [id number] Univers 11:40:00 11:40:00 JERZY RANGEL [id number] i ty of [facility] 2019-10-05 2019-10-05 Outpatient R HARLEY RANGELEKTASelwyn [facility] [id number] Univers 11:40:00 11:40:00 JERZY RANGEL i ty of [facility] Results Test Description Test Time Test Comments Results Result Comments Source MAGNESIUM 2021-08-30 16:46:40 Test Item Value Reference Range Interpretation Comme nts MAGNESIUM (test code = 6064295726) 1.9 mg/dL 1.7-2.4 Lab Interpretation (test code = 25780-5) [facility]80496[facility]2021-08-30 16:46:20 Test Item Value Reference Range Interpretation Comments NA (test code = 141 mmol/L 135-145 0959359259) K (test code = 4.4 mmol/L 3.5-5.0 3171330566) CL (test code = 107 mmol/L 98-108 1331080636) CO2 TOTAL (test code = 23 mmol/L 23-31 0755264744) AGAP (test code = 2-16 3663408094) BUN (test code = 17 mg/dL 7-23 5170105519) GLUCOSE (test code = 114 mg/dL 70-110 H 9959084820) CREATININE (test code = 1.06 mg/dL 0.50-1.04 H 8117121869) TOTAL BILI (test code = 0.6 mg/dL 0.1-1.3 0061607904) CALCIUM (test code = 9.9 mg/dL 8.6-10.6 2551682460) T PROTEIN (test code = 6.7 g/dL 6.3-8.2 3871318914) ALBUMIN (test code = 4.3 g/dL 3.5-5.0 5639925136) ALK PHOS (test code = 81 U/L 34-122 9749045467) ALTv (test code = 21 U/L 5-35 1742-6) AST(SGOT) (test code = 26 U/L 13-40 1333863297) eGFR (test code = mL/min/1.73m2 3411712724) AMALIA (test code = AMALIA) Association of Glomerular Filtration Rate (GFR) and Staging of Kidney Disease* + --+ --+ ------+| GFR (mL/min/1.73 m2) ?| With Kidney Damage ?| ?Without Kidney Damage+ --------+ --------+ +| ?>90 ?| ?Stage one ?| ? Normal ?+ ---+ ---+ -------+| ?60-89 ?| ?Stage two ?| ? Decreased GFR ? + --+ --+ ------+| ?30-59 ?| ?Stage three ?| ? Stage three ? + --+ --+ ------+| ?15-29 ?| ?Stage four ? | ? Stage four ?+ ---+ ---+ -------+| ?<15 (or dialysis) ? ?| ?Stage five ? | ? Stage five ?+ ---+ ---+ -------+ *Each stage assumes the associated GFR level has been in effect for at least three months. ?Stages 1 to 5, with or without kidney disease, indicate chronic kidney disease. Notes: Determination of stages one and two (with eGFR >59mL/min/1.73 m2) requires estimation of kidney damage for at least three months as defined by structural or functional abnormalities of the kidney, manifested by either:Pathological abnormalities or Markers of kidney damage (including abnormalities in the composition of the blood or urine or abnormalities in imaging tests). Lab Interpretation Abnormal (test code = 49381-0) [facility] WITH [id number] 16:45:39 Test Item Value Reference Range Interpretation Comments [...] as normal/abnormal . HGB (test code = 11.5 g/dL 11.6-15.0 L 718-7) HCT (test code = 35.2 % 35.7-45.2 L 4544-3) MCV (test code = 86.5 fL 80.6-95.5 787-2) MCH (test code = 28.3 pg 25.9-32.8 785-6) MCHC (test code = 32.7 g/dL 31.6-35.1 786-4) RDW-SD (test code = 44.4 fL 39.0-49.9 66384-1) RDW-CV (test code = 14.0 % 12.0-15.5 788-0) PLT (test code = See_Comment [Automated 777-3) message] The sy stem which generated this result transmitted reference range : 166 - 358 10*3/ ?L. The reference r elba was not used to interpret this result as normal/abnormal . MPV (test code = 10.7 fL 9.5-12.9 52589-6) NRBC/100 WBC (test See_Comment [Automat ed code = [id number]) message] The system which generated this result transmitted reference range : 0.0 - 10.0 /100 WBCs. The refer ence range was not u sed to interpret th is result as normal/abnormal . NRBC x10^3 (test code <0.01 See_Comment [Auto mated = [id number]) message] The s ystem which generated this result transmitted reference range : 10*3/?L. The reference range was not used to interpret this result as normal/abnormal . GRAN MAT (NEUT) % 54.5 % (test code = 770-8) IMM GRAN % (test code 0.50 % = [id number]) LYMPH % (test code = 28.7 % 736-9) MONO % (test code = 11.3 % 5905-5) EOS % (test code = 4.1 % 713-8) BASO % (test code = 0.9 % 706-2) GRAN MAT x10^3(ANC) 2.41 10*3/uL 1.88-7.09 (test code = [id number]) IMM GRAN x10^3 (test <0.03 0.00-0.06 code = [id number]) LYMPH x10^3 (test code 1.27 10*3/uL 1.32-3.29 L = 731-0) MONO x10^3 (test code 0.50 10*3/uL 0.33-0.92 = 742-7) EOS x10^3 (test code = 0.18 10*3/uL 0.03-0.39 711-2) BASO x10^3 (test code 0.04 10*3/uL 0.01-0.07 = 704-7) Lab Interpretation Abnormal (test code = 63879-2) [facility]00 Test Item Value Reference Range Interpretation Comments Chemistry (test 0.013 ng/mL < 0.028 code = TROPI-R) Reference Ra nge 0.0 0 - 0.028 ng/mL Negative 0.0 29 - 0.29 ng/mL Indeterminate Greater or Equal to 0.3 ng/mL Strongly sugge sts MO Chemistry - BNP, HgbA1c, [id number] 11:14:00 Test Item Value Reference Range Interpretation Comments Chemistry - BNP, HgbA1c, PTHi 14.3 pg/mL 0-100 N (test code = BNP) [id number] 11:12:00 Test Item Value Reference Range Interpretation Comments Chemistry (test code 138 mmol/L 136-145 N = NA-T) Chemistry (test code 4.2 mmol/L 3.5-5.1 N = K-T) Chemistry (test code 104 mmol/L 98-107 N = CL) Chemistry (test code 21 mmol/L 23-31 L = CO2) Chemistry (test code 17 mmol/L 10-20 N = ANGP) Chemistry (test code 37 mg/dL 9.8-20.1 H = BUN) Chemistry (test code 1.21 mg/dL 0.6-1.1 H = CREATT) Chemistry (test code 45 Referen ce Range for = EGFRMDRD) Estimated GFR: Great er than 90 mL/min/1.73 m2NOTE:The MDRD equation has no t been validated for u se with theelderly (ove r 70 years of age), women, patientswith se rious comorbid condit ion or persons with ex tremes ofbody size, mu scle mass, or nutrit ional status. Chemistry (test code 161 mg/dL 80-115 H = GLU-T) Chemistry (test code 10.3 mg/dL 7.8-10.44 N = CA) Chemistry (test code 0.4 mg/dL 0.2-1.2 N = TBILI-T) Chemistry (test code 7.4 g/dL 5.8-8.1 N = TP) Chemistry (test code 4.1 g/dL 3.4-4.8 N = ALB) Chemistry (test code 3.3 g/dL 2.4-3.5 N = GLOB) Chemistry (test code 1.2 g/dL 1.2-2.2 N = AG) Chemistry (test code 82 U/L 40-110 N = ALP) Chemistry (test code 11 U/L 5-34 N = AST) Chemistry (test code 21 U/L 8-55 N = ALT) [id number] 10:55:00 Test Item Value Reference Range Interpretation Comments Hematology (test code = WBCT) 18.4 thou/uL 4.8-10.8 H Hematology (test code = RBCT) 4.92 mill/uL 4.20-5.40 N Hematology (test code = HGBT) 13.5 g/dL 12.0-16.0 N Hematology (test code = HCTT) 42.4 % 36.0-47.0 N Hematology (test code = MCV) 86.1 fL 78.0-98.0 N Hematology (test code = MCH) 27.4 pg 27.0-31.0 N Hematology (test code = MCHC) 31.8 g/dL 32.0-36.0 L Hematology (test code = RDW) 13.5 % 11.5-14.5 N Hematology (test code = PLTT) 358 thou/uL 130-400 N Hematology (test code = MPV) 7.8 fL 7.4-10.4 N Hematology (test code = %NEUT) 79.4 % 42.0-75.0 H Hematology (test code = %LYMPH) 14.8 % 21.0-51.0 L Hematology (test code = %MONO) 5.5 % 0.0-10.0 N Hematology (test code = %EOS) 0.0 % 0.0-10.0 N Hematology (test code = %BASO) 0.3 % 0.0-1.0 N Hematology (test code = NEUT#) 14.6 thou/uL 1.40-6.50 H Hematology (test code = LYMPH#) 2.7 thou/uL 1.20-3.40 N Hematology (test code = MONO#) 1.0 thou/uL 0.11-0.59 H Hematology (test code = EOS#) 0.0 thou/uL 0.0-0.7 N Hematology (test code = BASO#) 0.1 thou/uL 0.0-0.2 N URINE DRUG (IMMUNOASSAY) - COMPREHENSIVE DRUG SCREEN W/O [id number] 03:45:17 Test Item Value Reference Range Interpretation Comments AMPHET (test code = 7288341382) Negative Negative SALOMÓN U (test code = 5596269387) Negative Negative BENZO U (test code = 3249207566) Negative Negative Cocaine Metabolite (test code = Negative Negative 7042489926) METHADONE (test code = 9320801236) Negative Negative OPIATES (test code = 9184129226) Negative Negative PCP (test code = 7335333708) Negative Negative THC (test code = 4490451665) Negative Negative AMALIA (test code = AMALIA) Lab Interpretation (test code = Normal 65369-5) [facility] 03:28:39 Test Item Value Reference Range Interpretation Comments APPEARANCE (test code = Clear Clear 8226316165) COLOR (test code = Yellow Yellow 6825183673) PH (test code = 4.8-8.0 5882073462) SP GRAVITY (test code = 1.003-1.030 5821954847) GLU U QUAL (test code = Normal Normal 2489762873) BLOOD (test code = Negative Negative 9178879272) KETONES (test code = Negative Negative 9649201652) PROTEIN (test code = Negative Negative 2887-8) UROBILIN (test code = Normal Normal 9341774403) BILIRUBIN (test code = Negative Negative 1522680858) NITRITE (test code = Negative Negative 0939350956) LEUK GLENNA (test code = 75/uL Negative A 8582114605) RBC/HPF (test code = See_Comment H [Autom ated message] 7338903639) The system [employer] generated this result transmitted ref erence range: 0 - 3 HP F. The reference range was not used to int erpret this result as normal/abnormal . WBC/HPF (test code = See_Comment H [Autom ated message] 6703362133) The system [employer] generated this result transmitted ref erence range: 0 - 5 HP F. The reference range was not used to int erpret this result as normal/abnormal . BACTERIA (test code = Negative Negative 7025213699) SQ EPITH (test code = <1 HPF 9948809714) Lab Interpretation (test Abnormal code = 24454-6) [facility] WITH [id number] 02:33:37 Test Item Value Reference Range Interpretation Comments WBC (test code = See_Comment H [Automated 1590-2) message] The system which generated this result [...] RDW-SD (test code = 46.1 fL 39.0-49.9 67039-4) RDW-CV (test code = 15.0 % 12.0-15.5 788-0) PLT (test code = See_Comment [Automated 777-3) message] The system which generated this result transmit [place] reference range : 166 - 358 10*3/ ?L. The reference range was not u sed to interpret th is result as normal/abnormal . MPV (test code = 10.4 fL 9.5-12.9 98515-7) NRBC/100 WBC (test See_Comment [Automat ed code = 7856756175) message] The system which generated this result transmit [place] reference range : 0.0 - 10.0 /100 WBCs. The reference range was not used to interpret this result as normal/abnormal . NRBC x10^3 (test code <0.01 See_Comment [Auto mated = 8303226812) message] The system which generated this result transmit [place] reference range : 10*3/?L. The reference range was not used to interpret this result as normal/abnormal . GRAN MAT (NEUT) % 89.8 % (test code = 770-8) IMM GRAN % (test code 2.30 % = 4549419520) LYMPH % (test code = 3.5 % 736-9) MONO % (test code = 4.2 % 5905-5) EOS % (test code = 0.0 % 713-8) BASO % (test code = 0.2 % 706-2) GRAN MAT x10^3(ANC) 16.54 10*3/uL 1.88-7.09 H (test code = 5589280532) IMM GRAN x10^3 (test 0.42 10*3/uL 0.00-0.06 H code = 2301149779) LYMPH x10^3 (test code 0.64 10*3/uL 1.32-3.29 L = 731-0) MONO x10^3 (test code 0.77 10*3/uL 0.33-0.92 = 742-7) EOS x10^3 (test code = <0.03 0.03-0.39 L 711-2) BASO x10^3 (test code 0.04 10*3/uL 0.01-0.07 = 704-7) Lab Interpretation Abnormal (test code = 31567-2) [facility] [id number] 02:10:14 Test Item Value Reference Range Interpretation Comments TROPONIN I (test code = 0.020 ng/mL See_Comment [Au tomated 8616211003) message] The sy stem which generated this result transmitted reference range : <=0.034. The reference range was not used to interpret this result as normal/abnormal . AMALIA (test code = AMALIA) Lab Interpretation Normal (test code = 69626-1) [facility]. METABOLIC PANEL (06027)2021-02-14 01:58:53 Test Item Value Reference Range Interpretation Comments NA (test code = 4013078690) 137 mmol/L 135-145 K (test code = 7981974767) 4.4 mmol/L 3.5-5.0 CL (test code = 0577981947) 102 mmol/L 98-108 CO2 TOTAL (test code = 2743044651) 25 mmol/L 23-31 AGAP (test code = 2937965666) 2-16 BUN (test code = 4694970714) 22 mg/dL 7-23 GLUCOSE (test code = 3513463088) 149 mg/dL 70-110 H CREATININE (test code = 0.89 mg/dL 0.50-1.04 5184125462) TOTAL BILI (test code = 0.5 mg/dL 0.1-1.7 1850810295) CALCIUM (test code = 8705103548) 10.6 mg/dL 8.6-10.6 T PROTEIN (test code = 2781619865) 7.6 g/dL 6.3-8.2 ALBUMIN (test code = 1929590198) 4.5 g/dL 3.5-5.0 ALK PHOS (test code = 2189585689) 101 U/L 34-122 ALTv (test code = 1742-6) 25 U/L 5-35 AST(SGOT) (test code = 7934374198) 29 U/L 13-40 eGFR (test code = 6679665687) mL/min/1.73m2 AMALIA (test code = AMALIA) Lab Interpretation (test code = Abnormal 59351-1) [facility] (ID NOW RAPID TESTING)2021-02-14 01:57:53 Test Item Value Reference Range Interpretation Comments SARS-CoV-2 Rapid ID NOW (test Not Detected Not Detected code = 60633-3) AMALIA (test code = AMALIA) Lab Interpretation (test code = Normal 43816-5) [facility] [id number] 11:27:57 Test Item Value Reference Range Interpretation Comments TROPONIN I (test code = <0.012 See_Comment [Au tomated message] 5249258421) The system whic h generated this result transmitted ref erence range: <=0.034 ng/mL. The reference r elba was not used to interpret this result as normal/abnor mal. AMALIA (test code = AMALIA) Lab Interpretation (test Normal code = 62782-4) [facility] WITH [id number] 07:32:39 Test Item Value Reference Range Interpretation Comments WBC (test code = See_Comment [Automated 6485-2) message] The sy stem which generated this result transmitted reference range : 4.30 - 11.10 10*3/?L. The reference range was not used to interpret this result as normal/abnormal . RBC (test code = See_Comment [Automated 192-8) message] The sy stem which generated this [...] RDW-SD (test code = 47.0 fL 39.0-49.9 95104-9) RDW-CV (test code = 14.9 % 12.0-15.5 788-0) PLT (test code = See_Comment [Automated 777-3) message] The sy stem which generated this result transmitted reference range : 166 - 358 10*3/ ?L. The reference r elba was not used to interpret this result as normal/abnormal . MPV (test code = 10.4 fL 9.5-12.9 73848-1) NRBC/100 WBC (test See_Comment [Automat ed code = 2020065728) message] The system which generated this result transmitted reference range : 0.0 - 10.0 /100 WBCs. The refer ence range was not u sed to interpret th is result as normal/abnormal . NRBC x10^3 (test code <0.01 See_Comment [Auto mated = 9320349770) message] The s ystem which generated this result transmitted reference range : 10*3/?L. The reference range was not used to interpret this result as normal/abnormal . GRAN MAT (NEUT) % 72.7 % (test code = 770-8) IMM GRAN % (test code 4.50 % = 4800795027) LYMPH % (test code = 13.6 % 736-9) MONO % (test code = 7.0 % 5905-5) EOS % (test code = 1.8 % 713-8) BASO % (test code = 0.4 % 706-2) GRAN MAT x10^3(ANC) 7.99 10*3/uL 1.88-7.09 H (test code = 5877754809) IMM GRAN x10^3 (test 0.50 10*3/uL 0.00-0.06 H code = 9194218629) LYMPH x10^3 (test code 1.50 10*3/uL 1.32-3.29 = 731-0) MONO x10^3 (test code 0.77 10*3/uL 0.33-0.92 = 742-7) EOS x10^3 (test code = 0.20 10*3/uL 0.03-0.39 711-2) BASO x10^3 (test code 0.04 10*3/uL 0.01-0.07 = 704-7) Lab Interpretation Abnormal (test code = 40393-7) [facility] [id number] 07:10:47 Test Item Value Reference Range Interpretation Comments TROPONIN I (test code = <0.012 See_Comment [Au tomated message] 7128164076) The system [employer] generated this result transmitted ref erence range: <=0.034 ng/mL. The reference r elba was not used to interpret this result as normal/abnor mal. AMALIA (test code = AMALIA) Lab Interpretation (test Normal code = 33486-7) [facility]MINAL [id number] 07:07:26 Test Item Value Reference Range Interpretation Comments NT-proBNP (test code = 87 pg/mL See_Comment [Aut omated message] 1703902571) The system [employer] generated this result transmitted ref erence range: <=125. T he reference range was not used to int erpret this result as normal/abnormal . AMALIA (test code = AMALIA) Lab Interpretation (test Normal code = 69539-2) [facility] HospitalD-[id number] 06:59:27 Test Item Value Reference Range Interpretation Comments D-DIMER (test code = See_Comment H [Autom ated message] 0440507529) The system [employer] generated this result transmitted ref erence range: <0.41 ?g /mL (FEU). The refe rence range was not u sed to interpret this result as normal/abnor mal. AMALIA (test code = AMALIA) Lab Interpretation (test Abnormal code = 18720-2) [facility] METABOLIC PANEL (NA, K, CL, CO2, GLUCOSE, BUN, CREATININE, CA)2021-02-13 06:58:46 Test Item Value Reference Range Interpretation Comments NA (test code = 8832581956) 139 mmol/L 135-145 K (test code = 8971657589) 4.7 mmol/L 3.5-5.0 CL (test code = 0495454323) 108 mmol/L 98-108 CO2 TOTAL (test code = 0158300962) 27 mmol/L 23-31 AGAP (test code = 7887763567) 2-16 BUN (test code = 8750172295) 22 mg/dL 7-23 GLUCOSE (test code = 5897653008) 106 mg/dL 70-110 CREATININE (test code = 1.10 mg/dL 0.50-1.04 H 7382242877) CALCIUM (test code = 9950374510) 10.1 mg/dL 8.6-10.6 eGFR (test code = 1553693881) mL/min/1.73m2 AMALIA (test code = AMALIA) Lab Interpretation (test code = Abnormal 66255-5) [facility] : 1955 Sex: [facility] Pt Name: JANICE DELA CRUZ [address] Phys: [place] [address] : 1955 Age: 65 SEX:[phone] Exam Date: 02/21/21 Status: REG ER Acct: [id number] Loc: [facility] Pt Unit #: [id number] Report #: [id number] CC: JESSE ANGELES MD IMAGING SERVICES REPORT Order # Category/Exam [id number] RAD/XR Chest 1 View Portable ([id number]): . Results Exam: Chest one view HISTORY:Dyspnea COMPARISON: None FINDINGS: Cardiac silhouette: Normal Aorta: Unremarkable Pulmonary vessels:Normal Costophrenic angles: Clear Lungs: Hyperinflation with chronic changes. Pneumothorax: None Osseous abnormalities: None IMPRESSION: No acute cardiopulmonary process. COMMUNICATION: Reported By: Antonio Vaca MD Electronically Signed Date/Time: 02/21/21 1037 Technologist: ALFONZO Dictated Date/Time: 02/21/21 1036 Transcribed Date/Time:"
[2021-10-03 20:08] LABS: Absolute Lymphocytes (CBC) 1.6 K/uL (0.7-4.9); Hematocrit 36.8 % (36.0-45.0); Lymphocytes % 18.9 % (15.3-44.8); MPV 8.8 fL (7.6-11.3); RBC Red Blood Cell Count 4.43 M/uL (3.86-4.86)
[2021-10-03 20:17] LABS: Potassium 4.1 mmol/L (3.5-5.1)
--- NOTE | 2021-10-03 20:19 | RAD REPORT ---
EXAM DESCRIPTION: CT - Head Brain Wo Cont - 10/03/2021 8:10 pm CLINICAL HISTORY: Headache, new or worsening Headache, drowsiness COMPARISON: HEAD BRAIN W O CONTRAST dated 08/12/2015; HEAD BRAIN W O CONTRAST dated 07/22/2015 TECHNIQUE: All CT scans are performed using dose optimization technique as appropriate and may inclu de automated exposure control or mA/KV adjustment according to patient size. FINDINGS: No intracranial hemorrhage, hydrocephalus or extra-axial fluid collection.No areas of brai n edema or evidence of midline shift. The paranasal sinuses and mastoids are clear. The calvarium is intact. IMPRESSION: No acute intracranial abnormality.
--- NOTE | 2021-10-03 20:58 | ER ---
Nurse's Notes [facility] Name: Janice Harry Age: 65 yrs Sex: Female : 1955 Arrival Date: 10/03/2021 Time: 19:23 Bed 4 Private MD: Diagnosis: Headache;Essential (primary) hypertension Presentation: 10/03 19:30 Method Of Arrival: Ambulatory vc1 19:30 Initial Sepsis Screen: Does the patient meet any 2 criteria? HR > 90 bpm. Yes Does the vc1 patient have a suspected source of infection? No. Patient's initial sepsis screen is negative. Risk Assessment: Do you want to hurt yourself or someone else? Patient reports no desire to harm self or others. Onset of symptoms was October 03, 2021. 19:30 Acuity: HEBER 3 vc1 19:50 Chief complaint: Patient states: "I just don't feel right I woke up today feeling foggy vc1 in my head, I also have a bad headache so I thought maybe it was my blood pressure I checked it and it was 196 over eight something, but it was in the red danger area. I just don't feel right.":. Coronavirus screen: Vaccine status: Patient reports receiving the 2nd dose of the covid vaccine. Pfizer headache, Client presents with at least one sign or symptom that may indicate coronavirus-19. Standard/surgical mask placed on the client. Provider contacted for isolation considerations. Ebola Screen: No symptoms or risks identified at this time. Historical: - Allergies: 20:01 Requip; vc1 20:01 Tegretol; vc1 20:01 Codeine; vc1 20:01 Cipro; vc1 - Home Meds: 20:01 Clonazepam Oral [Active]; Coreg 12.5 mg oral tab [Active]; Lipitor Oral [Active]; vc1 Wellbutrin Oral [Active]; Xanax Oral [Active]; Zoloft Oral [Active]; - PMHx: 20:01 Anxiety; Asthma; Depression; Hyperlipidemia; Hypertension; Takotsubo Cardiomyopathy; vc1 - PSHx: 20:01 None; vc1 - Immunization history:: Adult Immunizations unknown. - Social history:: Smoking status: unknown. - Family history:: not pertinent. - Hospitalizations: : No recent hospitalization is reported. Screenin:07 Abuse screen: Denies threats or abuse. Denies injuries from another. Nutritional as6 screening: No deficits noted. Tuberculosis screening: No symptoms or risk factors identified. Fall Risk None identified. Assessment: 20:06 General: Appears in no apparent distress. Behavior is calm, cooperative, Reports as6 feeling ill for fatigue for. Pain: Complains of pain in head. Neuro: Level of Consciousness is awake, alert, obeys commands, Oriented to person, place, time, situation, Reports headache. Cardiovascular: Denies chest pain. Respiratory: Denies shortness of breath. 21:08 Reassessment: Patient appears in no apparent distress at this time. No changes from lg3 previously documented assessment. Patient and/or family updated on plan of care and expected duration. Pain level reassessed. Patient is alert, oriented x 3, equal unlabored respirations, skin warm/dry/pink. Patient denies pain at this time. Patient states feeling better. Patient states symptoms have improved. 21:10 General: pt requesting to be discharged at this time. states that she "feels 100% lg3 better". no complains of pain at this time. notified Dr. Aguirre of pt request. . Vital Signs: 19:30 BP 146 / 80; Pulse 94; Resp 18; Temp 99.3(O); Pulse Ox 100% on R/A; Weight 97.52 kg; vc1 Height 5 ft. 8 in. (172.72 cm); Pain 7/10; 20:22 BP 130 / 59; Pulse 71; Resp 20 S; Pulse Ox 97% on R/A; as6 21:08 BP 130 / 59; Pulse 70; Resp 19 S; Pulse Ox 98% on R/A; lg3 19:30 Body Mass Index 32.69 (97.52 kg, 172.72 cm) vc1 [place] Coma Score: 20:56 Eye Response: spontaneous(4). Verbal Response: oriented(5). Motor Response: obeys rn commands(6). Total: 15. ED Course: 19:23 Patient arrived in ED. bp1 19:25 Thomas Aguirre MD is Attending Physician. rn 19:30 Efra Howard RN is Primary Nurse. as6 20:01 Triage completed. vc1 20:05 Inserted saline lock: 22 gauge in right antecubital area, using aseptic technique. as6 Blood collected. 20:06 [place] Screen Profile Sent. as6 20:06 Basic Metabolic Panel Sent. as6 20:06 CBC with Diff Sent. as6 20:07 Bed in low position. Call light in reach. Side rails up X 1. firer locomotive on. Pulse as6 ox on. NIBP on. 20:07 Arm band placed on. as6 20:12 CT Head Brain wo Cont In Process Unspecified. EDMS 20:23 Door closed. Noise minimized. Lights dimmed. Warm blanket given. as6 21:09 No provider procedures requiring assistance completed. IV discontinued, intact, lg3 bleeding controlled, No redness/swelling at site. Pressure dressing applied. Administered Medications: 20:42 Drug: Reglan (metoCLOPramide) 10 mg Route: IVP; Site: right antecubital; as6 21:10 Follow up: Response: No adverse reaction lg3 20:42 Drug: Ketorolac 15 mg Route: IVP; Site: right antecubital; as6 21:10 Follow up: Response: No adverse reaction lg3 20:42 Drug: Coreg (carvedilol) 6.25 mg Route: PO; as6 21:10 Follow up: Response: No adverse reaction lg3 20:43 Drug: NS 0.9% 1000 ml Route: IV; Rate: 1000 ml; Site: right antecubital; as6 21:10 Follow up: IV Status: Completed infusion; IV Intake: 300ml lg3 Intake: 21:10 IV: 300ml; Total: 300ml. lg3 Outcome: 20:58 Discharge ordered by . rn 21:09 Discharged to home ambulatory. lg3 21:09 Condition: stable 21:09 Discharge instructions given to patient, Instructed on discharge instructions, medication usage, Demonstrated understanding of instructions, medications, Prescriptions given X 1. 21:12 Patient left the ED. lg3 Signatures: Dispatcher [employer] EDMS Thomas Aguirre MD MD rn Gibson, Lacie RN RN lg3 Alexia Stinson Ashby, RN RN as6 Kiah Ovalles RN RN vc1
--- NOTE | 2021-10-03 20:58 | EDPHYS ---
Physician Documentation [facility] Name: Janice Harry Age: 65 yrs Sex: Female : 1955 Arrival Date: 10/03/2021 Time: 19:23 Bed 4 Private MD: ED Physician Thomas Aguirre HPI: 10/03 20:38 This 65 yrs old Female presents to ER via Ambulatory with complaints of Headache, high rn blood pressure. 20:38 The patient complains of pain to the diffuse. The patient describes the headache as rn aching. Onset: The symptoms/episode began/occurred this morning. Associated signs and symptoms: Pertinent positives: This patient does not have any pertinent positive signs or symptoms associated with a headache. Pertinent negatives: altered mental status, dizziness, fever, neck stiffness, rash, vision changes, vision loss, vomiting, vertigo. Severity of symptoms: At its worst the pain was moderate, in the emergency department the pain is unchanged. Headache History: The patient has had previous headaches and this one is less severe than previous episodes. The symptoms are alleviated by nothing. the symptoms are aggravated by nothing. The patient has not experienced similar symptoms in the past. The patient has not recently seen a physician. Pt reports headache since this morning, no trauma, no fever, no focal neuro complaints. Has had migraines in past that she states are usually worse than today's headache. Came in today because she noticed her BP was elevated after her headache began. Continued to go higher, and has also run out of her coreg. NO chest pain/cough/sob/vomiting. No vision or speech changes. . Historical: - Allergies: 20:01 Requip; vc1 20:01 Tegretol; vc1 20:01 Codeine; vc1 20:01 Cipro; vc1 - Home Meds: 20:01 Clonazepam Oral [Active]; Coreg 12.5 mg oral tab [Active]; Lipitor Oral [Active]; vc1 Wellbutrin Oral [Active]; Xanax Oral [Active]; Zoloft Oral [Active]; - PMHx: 20:01 Anxiety; Asthma; Depression; Hyperlipidemia; Hypertension; Takotsubo Cardiomyopathy; vc1 - PSHx: 20:01 None; vc1 - Immunization history:: Adult Immunizations unknown. - Social history:: Smoking status: unknown. - Family history:: not pertinent. - Hospitalizations: : No recent hospitalization is reported. ROS: 20:38 Constitutional: Negative for fever, chills, and weight loss, Eyes: Negative for injury, rn pain, redness, and discharge, ENT: Negative for injury, pain, and discharge, Neck: Negative for injury, pain, and swelling, Cardiovascular: Negative for chest pain, palpitations, and edema, Respiratory: Negative for shortness of breath, cough, wheezing, and pleuritic chest pain, Abdomen/GI: Negative for abdominal pain, nausea, vomiting, diarrhea, and constipation, Back: Negative for injury and pain, MS/Extremity: Negative for injury and deformity, Skin: Negative for injury, rash, and discoloration, Neuro: Negative for weakness, numbness, tingling, and seizure. 20:38 All other systems are negative. Exam: 20:38 Constitutional: This is a well developed, well nourished patient who is awake, alert, rn and in no acute distress. Ambulatory to room without difficulty or assistance. Head/Face: Normocephalic, atraumatic. Eyes: Pupils equal round and reactive to light, extra-ocular motions intact. Lids and lashes normal. Conjunctiva and sclera are non-icteric and not injected. Cornea within normal limits. Periorbital areas with no swelling, redness, or edema. ENT: Mucous membranes moist. Cardiovascular: Regular rate and rhythm. No pulse deficits. Respiratory: No increased work of breathing, no retractions or nasal flaring. Abdomen/GI: Soft, non-tender Skin: Warm, dry with normal turgor. Normal color with no rashes, no lesions, and no evidence of cellulitis. MS/ Extremity: Pulses equal, no cyanosis. Neurovascular intact. Full, normal range of motion. Equal circumference. Neuro: Awake and alert, GCS 15, oriented to person, place, time, and situation. Cranial nerves II-XII grossly intact. Motor strength 5/5 in all extremities. Sensory grossly intact. Cerebellar exam normal. Normal gait. Vital Signs: 19:30 BP 146 / 80; Pulse 94; Resp 18; Temp 99.3(O); Pulse Ox 100% on R/A; Weight 97.52 kg; vc1 Height 5 ft. 8 in. (172.72 cm); Pain 7/10; 20:22 BP 130 / 59; Pulse 71; Resp 20 S; Pulse Ox 97% on R/A; as6 21:08 BP 130 / 59; Pulse 70; Resp 19 S; Pulse Ox 98% on R/A; lg3 19:30 Body Mass Index 32.69 (97.52 kg, 172.72 cm) vc1 [place] Coma Score: 20:56 Eye Response: spontaneous(4). Verbal Response: oriented(5). Motor Response: obeys rn commands(6). Total: 15. MDM: 19:25 Patient medically screened. rn 20:41 ED course: Pt also states took clonazepam for her anxiety prior to arrival and feels rn better. . 20:56 Differential diagnosis: cluster headache, hypertensive headache, intracerebral rn hemorrhage, migraine, neoplasm, tension headache, vasomotor headache. Data reviewed: vital signs, nurses notes, lab test result(s), radiologic studies, CT scan, and as a result, I will discharge patient. Counseling: I had a detailed discussion with the patient and/or guardian regarding: the historical points, exam findings, and any diagnostic results supporting the discharge/admit diagnosis, lab results, radiology results, the need for outpatient follow up, to return to the emergency department if symptoms worsen or persist or if there are any questions or concerns that arise at home. Response to treatment: the patient's symptoms have mildly improved after treatment, and as a result, I will discharge patient. Special discussion: I discussed with the patient/guardian in detail that at this point there is no indication for admission to the hospital. It is understood, however, that if the symptoms persist or worsen the patient needs to return immediately for re-evaluation. 10/03 19:45 Order name: CBC with Diff; Complete Time: :10/03 19:45 Order name: Basic Metabolic Panel; Complete Time: 20:10/03 19:45 Order name: CT Head Brain wo Cont; Complete Time: 20:10/03 19:45 Order name: Piatt Screen Profile; Complete Time: 20:10/03 19:45 Order name: IV Start; Complete Time: 20:10/03 19:45 Order name: Cardiac monitoring; Complete Time: :10/03 19:45 Order name: EKG; Complete Time: :10/03 19:45 Order name: EKG - Nurse/Tech; Complete Time: 20:22 rn Administered Medications: 20:42 Drug: Reglan (metoCLOPramide) 10 mg Route: IVP; Site: right antecubital; as6 21:10 Follow up: Response: No adverse reaction lg3 20:42 Drug: Ketorolac 15 mg Route: IVP; Site: right antecubital; as6 21:10 Follow up: Response: No adverse reaction lg3 20:42 Drug: Coreg (carvedilol) 6.25 mg Route: PO; as6 21:10 Follow up: Response: No adverse reaction lg3 20:43 Drug: NS 0.9% 1000 ml Route: IV; Rate: 1000 ml; Site: right antecubital; as6 21:10 Follow up: IV Status: Completed infusion; IV Intake: 300ml lg3 Disposition Summary: 10/03/21 20:58 Discharge Ordered Location: Home rn Problem: new rn Symptoms: have improved rn Condition: Stable rn Diagnosis - Headache rn - Essential (primary) hypertension rn Followup: rn - With: Private Physician - When: As needed - Reason: Recheck today's complaints, Re-evaluation by your physician Discharge Instructions: - Discharge Summary Sheet rn - General Headache Without Cause rn - Hypertension, Adult rn Forms: - Medication Reconciliation Form rn - Thank You Letter rn - Antibiotic human resource internship - Prescription Opioid Use rn Prescriptions: - Coreg 12.5 mg Oral tablet - take 1 tablet by ORAL route 2 times per day with food; 120 tablet; Refills: 0, rn Product Selection Permitted Signatures: Dispatcher [employer] Thomas Diamond MD MD rn Slawson, Ashby, RN RN as6 Kiah Ovalles RN RN Bernice Pereyra RN lg3
[2021-10-04 00:39] VITALS: TEMP 99.3
[2021-10-04 00:40] VITALS: BP 130/59
[2021-10-04 00:42] VITALS: O2SAT 98
== END ==
LOC: ER 19:20
DX: R51.9 Headache, unspecified (principal); I10 Essential (primary) hypertension; F41.9 Anxiety disorder, unspecified; E78.5 Hyperlipidemia, unspecified; F32.A Depression, unspecified; Z88.1 Allergy status to other antibiotic agents; Z88.5 Allergy status to narcotic agent; Z88.8 Allergy status to other drugs, medicaments and biological substances
CPT/HCPCS: 93005; 85025; 80048; 36415; 86308; 70450; 96375; 96374; 99284; J2765; J7030

== ENCOUNTER 2021-10-23 06:20 | Day surgery (SDC) | payer MEDICARE ==
[2021-10-23] MEDS ORDERED: PHENYLEPHRINE 2.5% OPTH 2 ML ONE (06:36)
[2021-10-23] MEDS ORDERED: MOXIFLOXACIN HCL 0.5% 3ML OPTH OPTH ONE (06:36)
[2021-10-23] MEDS ORDERED: TROPICAMIDE 1% OPTH 3 ML BOT ONE (06:36)
[2021-10-23] MEDS ORDERED: CYCLOPENTOLATE 2% OPTH 2 ML ONE (06:36)
[2021-10-23] MEDS ORDERED: KETOROLAC OPTHALMIC 5 ML BOT ONE (06:36)
[2021-10-23] MEDS ORDERED: Ringers Lactate 1,000 ML IV ONE (06:51)
[2021-10-23] MEDS ORDERED: BALANCED SALT IRRIG PLAIN 500 ML IRR ONE (06:56)
[2021-10-23] MEDS ORDERED: TOBRADEX 0.3-0.1% OPTH OINTMENT ONE (06:56)
[2021-10-23] MEDS ORDERED: EPINEPHRINE/PF 1 MG/ML AMP ONE (06:56)
[2021-10-23] MEDS ORDERED: HYALURONATE SODIUM 10 MG/ML SYR OPTH ONE (06:57)
[2021-10-23] MEDS ORDERED: DUOVISC 1 KIT OPTH ONE (06:57)
[2021-10-23] MEDS ORDERED: POVIDONE-IODINE 5% EYE DROPS ONE (06:58)
[2021-10-23] MEDS ORDERED: LIDOCAINE 1% MPF 5 ML VIAL ONE (07:18)
[2021-10-23] MEDS ORDERED: propofoL 200 MG/20 ML VIAL IV ONE (07:18)
[2021-10-23] MEDS ORDERED: MIDAZOLAM HCL 2 MG/2 ML INJ ONE (07:18)
[2021-10-23] MEDS ORDERED: FENTANYL CITR 100 MCG/2 ML ONE (07:18)
[2021-10-23] MEDS ORDERED: KETOROLAC 30 MG/ML INJ ONE (07:43)
[2021-10-23] MEDS ORDERED: dexAMETHasone 10 MG/ML VIAL ONE (07:43)
[2021-10-23] MEDS ORDERED: ONDANSETRON 4 MG/2 ML VIAL ONE (07:49)
[2021-10-23] MEDS ORDERED: EPHEDRINE SULF 50 MG/ML VIAL ONE (07:54)
[2021-10-23] MEDS ORDERED: NS 0.9% VIAL 10 ML ONE (07:54)
[2021-10-23] MEDS: MORPHINE 4 MG/ML SYR ONE ×2 (08:42→08:52)
[2021-10-23] MEDS ORDERED: DIPHENHYDRAMINE 50 MG/ML VIAL ONE (09:17)
[2021-10-23] MEDS ORDERED: ACETAMINOPHEN 325 MG TABLET ONE (09:56)
[2021-10-23 10:16] VITALS: BP 159/76; TEMP 97.8; O2SAT 99
--- NOTE | 2021-10-23 20:35 | OP ---
Date of Procedure: 10/23/2021 Surgeon: Nicholas Hoffman MD Doctor Of Nursing Practice: None. Preoperative Diagnosis: Visually significant cataract, right eye. Postoperative Diagnosis: Visually significant cataract, right eye. Procedure Performed: Cataract extraction, right eye, complex with placement of intra-ocular hooks se condary to poor dilation. Procedure In Detail: After being properly identified in the preoperative holding area, the patient w as taken back to the operating room where a time-out was performed. The patient was prepped and drap ed in the normal sterile fashion. Examination of the eye underneath the operating microscope reveale d a poorly dilated pupil and therefore the decision to place iris hooks was made. The globe was gras ped with a pair of 0.12 forceps and a side-port incision blade was used to make a paracentesis incisi ons in the 12 o'clock and 6 o'clock position and then 4 additional incisions were made angled slightl y downward in order to accommodate the iris hooks, which would be placed in order to retract the iris . The anterior chamber was then filled with viscoelastic and 4 iris hooks were placed, 1 in each deandre drant hooked underneath the iris and drawn taut in order to open up the pupillary aperture and allow for safe phacoemulsification of the patient's cataract. Once all 4 iris hooks have been placed, a cy stotome was used to initiate a capsulotomy, and the capsulotomy was completed using Utrata forceps. Hydrodissection and hydrodelineation of the lens nucleus were carried out using a Treviño cannula resul ting in the lens having free rotation and thereafter the lens was divided and removed in a standard d ivide and conquer technique. Once all 4 quadrants have been removed, the phaco handpiece was exchang ed for bimanual irrigation aspiration handpieces and cortical material was removed and both the poste rior surface of the anterior capsule as well as the posterior capsule were polished. Viscoelastic wa s then used to refill the capsular bag and a Jean Marie and Jean Marie model DCB00, power 25.0 diopter, ser ial #[id number] was placed in the eye and injected into the capsular bag. The were rotate d using a Sinskey hook so that they fell in the horizontal position. The 4 iris hooks were removed a nd the remaining viscoelastic removed using a bimanual irrigation aspiration hand piece including rem oval posterior to the IOL. Once all viscoelastic had been removed, the main phaco incision wound, wh ich had been created with a 2.75 mm keratome was hydrated with a 30-gauge cannula and then additional hydration carried out of the paracentesis wound and an air bubble added. The anterior chamber maint aining stability without leaks. The procedure was concluded and the lid speculum and drapes were rem nia. The patient was pressure patched over TobraDex ointment and taken to the postoperative holding area in stable condition having tolerated the procedure well under general anesthesia the entire kayla e. There were no complications. Estimated Blood Loss: Less than 1 mL. Specimens: There were no specimens sent. Drains: No drains placed. The patient is to follow up with myself, Dr. Nicholas Hoffman at the [facility] tomorrow morning. ELAYNE/MODL Voice ID: [id number] Report ID: [id number]
== END 2021-10-23 11:02 | disposition home or self-care (01) ==
LOC: OR 06:20
PROVIDERS: ATTEND Ophthalmology
PROC: 085J3ZZ Destruction of Right Lens, Percutaneous Approach (ICD-10-PCS; principal; 2021-10-23 07:30)
DX: H26.9 Unspecified cataract (principal); H54.61 Unqualified visual loss, right eye, normal vision left eye; Z20.822 Contact with and (suspected) exposure to COVID-19
CPT/HCPCS: 66850; U0002; U0003; J2704; J0171; J1200; J2250; J3010; J1100; J7120; J2405; J3490; V2632

== ENCOUNTER 2022-07-02 09:36 | Emergency (ER) | payer MEDICARE ==
--- OUTSIDE RECORDS SUMMARY | 2022-07-02 09:52 | XMS REPORT | Continuity of Care Document ---
:[address] [facility] t Address [address] [place] [address] Care Team Providers Name Role Phone Asked, No Pcp Primary Care Physician Unavailable Philipp Liriano Attending Clinician KYLE VIVAS Attending Clinician Unavailable Kyle Luis Attending Clinician [email or web address] Attending Clinician Unavailable Bess Godoy Attending Clinician Tom Euceda Attending Clinician Edd YUEN Attending Clinician Unavailable Edd Lin Attending Clinician JUANITA KHAN Attending Clinician Unavailable Fatuma Jackson Attending Clinician NICOLETTE CAMPBELL Attending Clinician Unavailable Nicolette Eden Attending Clinician JOSE ROSS Attending Clinician Unavailable Jose Ross DO Attending Clinician Yohan Attending Clinician Unavailable Jesse Angeles Attending Clinician Unavailable [place] REMOTELY PILOTED VEHICLE CONTROLLER, Bertin B Attending Clinician Jessica REPAIR OPERATOR, Mallory Olmedo Attending Clinician Jayson RN, Janice Lennon Attending Clinician Unavailable Julio Cesar DIAZ, Xiomara Attending Clinician UNKNOWN, ATTENDING Attending Clinician Unavailable OW_Citlalli Attending Clinician Unavailable Stefano DIAZ, iVshal Attending Clinician Shruti DIAZ, Liana Ortega Attending Clinician Jerzy Rangel DO Attending Clinician Bismark DIAZ, Sendil K.H. Attending Clinician Cr Roy MD Attending Clinician Dylan PT, Beny Attending Clinician Unavailable Monie PT, Mara Killian Attending Clinician Unavailable BISMARK, SENDIL K.H. Attending Clinician Unavailable AURELIA KIM Attending Clinician Unavailable JERZY RANGEL Attending Clinician Unavailable JERZY RANGEL Attending Clinician Unavailable Erin REMOTELY PILOTED VEHICLE CONTROLLER, Juanita Jones Attending Clinician GARY CARR Attending Clinician Unavailable Nathen REMOTELY PILOTED VEHICLE CONTROLLERGary Attending Clinician ANGELINA SAEZ Attending Clinician Unavailable KYLE VIVAS Admitting Clinician Unavailable [email or web address] Admitting Clinician Unavailable Edd YUEN Admitting Clinician Unavailable Jolynn_Jordan Admitting Clinician Unavailable MERLINE_Citlalli Admitting Clinician Unavailable Payers Payer Name Policy Type Policy Number Effective Date Expiration Date Jordan hayden COMMERCIAL [id number] 2021 NON-CONTRACT 00:00:00 GENERIC AETNA MEDICARE ADV [id number] 2019 00:00:00 [employer] [id number] 2020 MEDICARE ADVANTAGE 00:00:00 PLAN [employer] [id number] 2020 (MEDICARE 00:00:00 REPLACEMENT HMO) MANAGED MEDICARE [id number] PPO/FFS GENERIC 00:00:00 [facility] [id number] 2019 00:00:00 Problems Condition Condition Condition Status Onset Resolution Last Treating Co mments Source Name Details Category Date Date Treatment Clinician Date Acute pain Acute pain Disease Active M ethodi of right of right 4-01 st shoulder shoulder 00:00: Hospit a 00 l Fatty Fatty Disease Active Univers liver liver 2-25 ity of 00:00: [place] [facility] Macular Macular Disease Active Univers degenerati degenerati 2-25 it y of on on 00:00: [place] [facility] Vitamin D Vitamin D Disease Active Uni vers deficiency deficiency 2-25 it y of 00:00: [place] [facility] Alopecia Alopecia Disease Active Overview: Un kizzy 2-25 Formattin ity of 00:00: g of this note Medical might be Branch different from the original. Has been seen by Jorge A ontiveros. Allergic Allergic Disease Active Unive rs rhinitis rhinitis 2-25 ity of 00:00: [place] [facility] B12 B12 Disease Active Univers deficiency deficiency 9-25 it y of 00:00: [place] [facility] Stress Stress Disease Active Univers incontinen incontinen 9-25 it y of ce ce 00:00: [place] [facility] HLD HLD Disease Active Univers (hyperlipi (hyperlipi 9-19 it y of demia) demia) 00:00: [place] [facility] Chest pain Chest pain Disease Active U nivers 9-18 ity of 00:00: [place] [facility] Vertigo Vertigo Disease Active Univers 8-12 ity of 00:00: [place] [address] Medical Branch SOB SOB Disease Active Univers (shortness (shortness 1-28 it y of of breath) of breath) 00:00: [place] [facility] Dyspnea Dyspnea Disease Active 2015-06 Univers 2-16 ity of 00:00: [place] [facility] Shortness Shortness Disease Active 2015-06 Uni vers of breath of breath 1-28 ity of 00:00: [place] [facility] Obesity Obesity Disease Active 2015-06 Univers (BMI (BMI 1-20 ity of 30-39.9) 30-39.9) 00:00: [place] [facility] Acute Acute Disease Active 2015-06 Univers respirator respirator 1-20 it y of y failure y failure 00:00: [place] [facility] Shoulder Shoulder Disease Active Unive rs pain, pain, 3-07 ity of right right 00:00: [place] [facility] Suicidal Suicidal Disease Active Unive rs ideations ideations 09-25 ity of 00:00: [place] 00 [facility] Branch Hyponatrem Hyponatrem Disease Active U nivers ia ia 09-25 ity of 00:00: [place] 00 [facility] Branch Cardiomyop Cardiomyop Disease Active U nivers athy athy ity of [facility] [place] [facility] Allergies, Adverse Reactions, Alerts Allergy Allergy Status Severity Reaction(s) Onset Inactive Treating Comm ents Source Name Type Date Date Clinician CODEINE DRUG Active High N/V Univers INGREDI 02-15 ity of 00:00: [place] 00 Medical Branch Codeine Propensi Active Nausea Univers ty to and/or 02-15 ity of adverse Vomiting 00:00: [place] reaction Medical s Branch BUPRENOR DRUG Active Unknown-Cmnt Un kizzy PHINE-NA 02-24 ity of LOXONE 00:00: [place] [facility] CIPROFLO DRUG Active ITCHING Univers XACIN INGREDI 01-30 ity of 00:00: [place] [facility] Ciproflo Propensi Active Itching Unive rs xacin ty to 12 ity of adverse 00:00: [place] reaction 00 Medical s Branch SHELLFIS DRUG Active ITCHING 2015-06 Univers H INGREDI 07-11 ity of DERIVED 00:00: Medical Branch Shellfis Propensi Active Itching 2015-06 For Food Uni vers h ty to 07-11 Service ity of Derived adverse 00:00: Use - [place] reaction 00 Thank Medical s you! Branch SUMATRIP DRUG Active Anxiety Univers RUSH INGREDI 3-07 ity of 00:00: [place] [facility] Sumatrip Propensi Active Anxiety Unive rs rush ty to 3-07 ity of adverse 00:00: [place] reaction 00 Medical s Branch IODINE Drug Active ITCHING Univers AND Class 9-20 ity of IODIDE 00:00: [place] CONTAINI 00 Medical Branch PRODUCTS Iodine Propensi Active Itching Univers And ty to 9-20 ity of Iodide adverse 00:00: [place] Containi reaction 00 Medica l ng s Branch Products Iodine Propensi Active Itching Univers And ty to 9-20 ity of Iodide adverse 00:00: [place] Containi reaction 00 Medica l ng s Branch Products CARBAMAZ DRUG Active Hives Univers EPINE INGREDI 09-25 ity of 00:00: [place] 00 Medical Branch Social History Social Habit Start Date Stop Date Quantity Comments Source Exposure to 2022-04-19 2022-04-29 Not sure University SARS-CoV-2 (event) 00:00:00 21:30:00 [facility] [place] [facility] Alcohol intake 2022-04-29 2022-04-29 Current University of 00:00:00 00:00:00 non-drinker of [facility] [place] [place] dave alcohol Branch (finding) Cigarettes smoked 2017-07-26 2017-07-26 Univers ity of current (pack per 00:00:00 00:00:00 [facility] ) - Reported Branch Cigarette 2017-07-26 2017-07-26 University of pack-years 00:00:00 00:00:00 [facility] [place] [facility] Tobacco use and 2017-07-26 2017-07-26 Former smokeless Uni versity of exposure 00:00:00 00:00:00 tobacco user [facility] History of tobacco 2012-09-26 User of Univer sity of use 00:00:00 smokeless [facility] tobacco [place] Sex [birth year] Religion 00:00:00 00:00:00 Hospital Smoking Status Start Date Stop Date Source Tobacco smoking Religion Hospit al consumption unknown Ex-smoker 2017-07-26 00:00:00 2017-07-26 [place] o f [place] 00:00:00 Medical Branch Medications Ordered Filled Start Stop Current Ordering Indication Dosage Frequency Signature Comments Components Source Medication Medication Date Date Medication? Clinician (SIG) Name Name ondansetron 2021-06- No 4mg 4 mg, Slow Univers (ZOFRAN 1-10 04-30 IV Push, ity of (PF)) 05:00: 04:27 ONCE, 1 [place] injection 4 00 :00 dose, On Medi dave mg Wed Branch 04/29/22 at 2300, MARK ondansetron 2021- No 4mg 4 mg, Slow Univers (ZOFRAN -05 23-12 IV Push, ity of (PF)) 18:30: 17:36 [...] mg 06/24/21 Branch at 1015, Routine phenazopyri 2021-0 Yes [id number] 200mg Take 1 Univers dine 200 mg 1-04 tablet by ity of tablet 00:00: mouth 3 [place] [address] (three) Medical times Branch daily. phenazopyri 2021-0 Yes [id number] 200mg Take 1 Univers dine 200 mg 1-04 tablet by ity of tablet 00:00: mouth 3 [place] 00 (three) Medical times Branch daily. phenazopyri 2021-0 Yes [id number] 200mg Take 1 Univers dine 200 mg 1-04 tablet by ity of tablet 00:00: mouth 3 [place] (three) Medical times Branch daily. phenazopyri 2021-0 Yes [id number] 200mg Take 1 Univers dine 200 mg 1-04 tablet by ity of tablet 00:00: mouth 3 [place] (three) Medical times Branch daily. cephALEXin 2021- No [id number] 500mg Take 1 Univers (KEFLEX) 06-24-12 capsule by ity of 500 mg 00:00: 05:59 mouth 3 [place] capsule 00 :00 (three) Medical times [place] daily for 7 days. amoxicillin Yes 1{tbl} 1 tablet, Univers -clavulanat 02-14 Oral, ity of e 13:00: Q12H, [place] (AUGMENTIN) 00 First dose Me dical 875-125 mg on Wed Branch per tablet 02/14/21 at 1 tablet 0800, Until Discontinu ed, Routine
Reason for Anti-Infec tive: Documented Infection< br>Documen [place] Infection Site: Respirator y
Durat ion of Therapy: Other (see Comments) dexamethaso 2020- No 10mg 10 mg, IV Univers ne 02-14 Push, ity of (DECADRON 06:30: 05:44 ONCE, 1 [place]OSPHATE[place] 00 :00 dose, Fri Medi dave injection 02/14/21 at [facility] ch 10 mg 0130, STAT ipratropium 2020- No 3mL 3 mL, Univ ers -albuteroL 02-14 Inhalation it y of (DUONEB) 06:15: 05:07 , ONCE, 1 [place] as 0.5 mg-3 00 :00 dose, Fri Medica l mg(2.5 mg 02/14/21 at Bran ch base)/3 mL 0115, nebulizer Routine solution 3 mL LORazepam 2020- No .5mg 0.5 mg, Univ ers (ATIVAN) [...] Cathy Medi dave (4 %) 02/13/21 at [place] infusion 2 2215, g Routine methylPREDN 2020- No 60mg 60 mg, IV Univers ISolone sod 8-27 08-27 Piggyback, i ty of succ 03:15: 02:22 ONCE, 1 [place] (SOLU-MEDRO 00 :00 dose, Cathy Med ical L (PF)) 02/13/21 at Branch injection 2215, STAT 60 mg ipratropium 2020- No 6mL 6 mL, Univ ers -albuteroL 02-14 Inhalation it y of (DUONEB) 03:15: 02:27 , ONCE, 1 [place] 0.5 mg-3 00 :00 dose, Cathy Medica l mg(2.5 mg 02/13/21 at [facility])/3 mL 2215, nebulizer Routine solution 6 mL NaCl 0.9% 2020- No 1000mL at 999 Uni vers (NS) bolus 02-14 mL/hr, ity of infusion 02:45: 04:00 1,000 mL, [place] as 1,000 mL 00 :00 IV Medical Piggyback, Branch ONCE, 1 dose, Cathy 02/13/21 at 2145, STAT amoxicillin 2020-0 Yes [id number] 1{tbl} Take 1 Univers -clavulanat 8-27 tablet by ity of e 875-125 00:00: mouth [place] mg per 00 every 12 Medical tablet (twelve) Branch hours. amoxicillin 2020-0 Yes [id number] 1{tbl} Take 1 Univers -clavulanat 8-27 tablet by ity of e 875-125 00:00: mouth [place] mg per 00 every 12 Medical tablet (twelve) Branch hours. amoxicillin 2020-0 Yes [id number] 1{tbl} Take 1 Univers -clavulanat 8-27 tablet by ity of e 875-125 00:00: mouth [place] mg per 00 every 12 Medical tablet (twelve) Branch hours. amoxicillin 2020-0 Yes [id number] 1{tbl} Take 1 Univers -clavulanat 8-27 tablet by ity of e 875-125 00:00: mouth [place] mg per 00 every 12 Medical tablet (twelve) Branch hours. amoxicillin 2020-0 Yes [id number] 1{tbl} Take 1 Univers -clavulanat 8-27 tablet by ity of e 875-125 00:00: mouth [place] mg per 00 every 12 Medical tablet (twelve) Branch hours. iopamidol 2020- No [id number] 100mL 100 mL, Univers (ISOVUE 02-13 Intravenou ity o f 370-500 mL) 11:30: 10:26 s, ONCE, 1 [place] injection 00 :00 dose, Cathy Medic al 100 mL 02/13/21 at Branch 0630, Routine diphenhydrA 2020- No 25mg 25 mg, Uni vers MINE 02-13 Slow IV ity of (BENADRYL) 08:30: 08:07 Push, [place] injection 00 :00 ONCE, 1 Medical 25 mg dose, [facility] Branch 02/13/21 at 0330, STAT methylpredn No 125mg 125 mg, U nivers isolone sod 02-13 Slow IV ity of succ 07:15: 06:39 Push, [place] (SOLU-MEDRO 00 :00 ONCE, 1 Medic al L) dose, [facility] injection 02/13/21 at 125 mg 0215, STAT ipratropium 2020- No 3mL 3 mL, Univ ers -albuteroL 02-13 Inhalation it y of (DUONEB) 07:15: 06:27 , ONCE [place] 0.5 mg-3 00 :00 NOW, 1 Medical mg(2.5 mg dose, [facility] h base)/3 mL 02/13/21 at nebulizer 0215, solution 3 Routine mL diphenhydrA No 25mg 25 mg, Uni vers MINE 02-13 Slow IV ity of (BENADRYL) 06:45: 07:00 Push, [place] injection 00 :00 ONCE, 1 Medical 25 mg dose, [facility] Branch 02/13/21 at 0200, STAT guaiFENesin Yes [id number] 400mg Take 1 Univers 400 mg 8-24 tablet by ity of tablet 00:00: mouth [place] 00 every 4 Medical (four) Branch hours as needed for Cough. benzonatate Yes [id number] 200mg Take 2 Univers 100 mg 8-24 capsules ity of capsule 00:00: by mouth 2 [place] (two) Medical times Branch daily as needed for Cough. guaiFENesin 2021-0 Yes [id number] 400mg Take 1 Univers 400 mg 8-24 tablet by ity of tablet 00:00: mouth [place] 00 every 4 Medical (four) Branch hours as needed for Cough. benzonatate 2021-0 Yes [id number] 200mg Take 2 Univers 100 mg 8-24 capsules ity of capsule 00:00: by mouth 2 [place] (two) Medical times Branch daily as needed for Cough. guaiFENesin 2021-0 Yes [id number] 400mg Take 1 Univers 400 mg 8-24 tablet by ity of tablet 00:00: mouth [place] 00 every 4 Medical (four) Branch hours as needed for Cough. benzonatate 2021-0 Yes [id number] 200mg Take 2 Univers 100 mg 8-24 capsules ity of capsule 00:00: by mouth 2 [place] (two) Medical times Branch daily as needed for Cough. guaiFENesin 2021-0 Yes [id number] 400mg Take 1 Univers 400 mg 8-24 tablet by ity of tablet 00:00: mouth [place] 00 every 4 Medical (four) Branch hours as needed for Cough. benzonatate 2021-0 Yes [id number] 200mg Take 2 Univers 100 mg 8-24 capsules ity of capsule 00:00: by mouth 2 [place] (two) Medical times Branch daily as needed for Cough. guaiFENesin 2021-0 Yes [id number] 400mg Take 1 Univers 400 mg 8-24 tablet by ity of tablet 00:00: mouth [place] 00 every 4 Medical (four) Branch hours as needed for Cough. benzonatate 2021-0 Yes [id number] 200mg Take 2 Univers 100 mg 8-24 capsules ity of capsule 00:00: by mouth 2 [place] (two) Medical times Branch daily as needed for Cough. guaiFENesin 2021-0 Yes [id number] 400mg Take 1 Univers 400 mg 8-24 tablet by ity of tablet 00:00: mouth [place] 00 every 4 Medical (four) Branch hours as needed for Cough. benzonatate 2021-0 Yes [id number] 200mg Take 2 Univers 100 mg 8-24 capsules ity of capsule 00:00: by mouth 2 [place] (two) Medical times Branch daily as needed for Cough. guaiFENesin 2021-0 Yes [id number] 400mg Take 1 Univers 400 mg 8-24 tablet by ity of tablet 00:00: mouth [place] 00 every 4 Medical (four) Branch hours as needed for Cough. benzonatate 2020-0 Yes [id number] 200mg Take 2 Univers 100 mg 8-24 capsules ity of capsule 00:00: by mouth 2 [place] (two) Medical times Branch daily as needed for Cough. guaiFENesin 0 Yes [id number] 400mg Take 1 Univers 400 mg 8-24 tablet by ity of tablet 00:00: mouth [place] 00 every 4 Medical (four) Branch hours as needed for Cough. benzonatate 0 Yes [id number] 200mg Take 2 Univers 100 mg 8-24 capsules ity of capsule 00:00: by mouth 2 [place] 00 (two) Medical times Branch daily as needed for Cough. cephALEXin 2020- No [id number] 500mg Take 1 Univers (KEFLEX) 8-24 -29 capsule by ity of 500 mg 00:00: 04:59 mouth 4 [place] capsule 00 :00 (four) Medical times Branch daily for 4 days. cephALEXin 2020- No [id number] 500mg Take 1 Univers (KEFLEX) 8-24 08-29 capsule by ity of 500 mg 00:00: 04:59 mouth 4 [place] capsule 00 :00 (four) Medical times Branch daily for 4 days. cephALEXin 0 202- No [id number] 500mg Take 1 Univers (KEFLEX) 8-24 08-29 capsule by ity of 500 mg 00:00: 04:59 mouth 4 [place] capsule 00 :00 (four) Medical times Branch daily for 4 days. cephALEXin 0 2020- No [id number] 500mg Take 1 Univers (KEFLEX) 8-24 08-29 capsule by ity of 500 mg 00:00: 04:59 mouth 4 [place] capsule 00 :00 (four) Medical times Branch daily for 4 days. cetirizine 0 Yes [id number] 10mg Take 1 U nivers (ZYRTEC) 10 8-20 tablet by ity of mg tablet 00:00: mouth [place] 00 daily. Medical Branch famotidine 0 Yes [id number] 40mg Take 1 U nivers 40 mg 8-20 tablet by ity of tablet 00:00: mouth 2 00 (two) Medical times Branch daily. montelukast 0 Yes [id number] 10mg Take 1 Univers 10 mg 8-20 tablet by ity of tablet 00:00: mouth [place] 00 daily. Medical Branch cetirizine 0 Yes [id number] 10mg Take 1 U nivers (ZYRTEC) 10 8-20 tablet by ity of mg tablet 00:00: mouth [place] 00 daily. Medical Branch famotidine 0 Yes [id number] 40mg Take 1 U nivers 40 mg 8-20 tablet by ity of tablet 00:00: mouth 2 (two) Medical times Branch daily. montelukast 0 Yes [id number] 10mg Take 1 Univers 10 mg 8-20 tablet by ity of tablet 00:00: mouth [place] 00 daily. Medical Branch cetirizine Yes [id number] 10mg Take 1 U nivers (ZYRTEC) 10 8-20 tablet by ity of mg tablet 00:00: mouth [place] 00 daily. Medical Branch famotidine 0 Yes [id number] 40mg Take 1 U nivers 40 mg 8-20 tablet by ity of tablet 00:00: mouth 2 (two) Medical times Branch daily. montelukast 0 Yes [id number] 10mg Take 1 Univers 10 mg 8-20 tablet by ity of tablet 00:00: mouth [place] 00 daily. Medical Branch cetirizine 0 Yes [id number] 10mg Take 1 U nivers (ZYRTEC) 10 8-20 tablet by ity of mg tablet 00:00: mouth [place] 00 daily. Medical Branch famotidine 0 Yes [id number] 40mg Take 1 U nivers 40 mg 8-20 tablet by ity of tablet 00:00: mouth 2 00 (two) Medical times Branch daily. montelukast 0 Yes [id number] 10mg Take 1 Univers 10 mg 8-20 tablet by ity of tablet 00:00: mouth [place] 00 daily. Medical Branch cetirizine 0 Yes [id number] 10mg Take 1 U nivers (ZYRTEC) 10 8-20 tablet by ity of mg tablet 00:00: mouth [place] 00 daily. Medical Branch famotidine 0 Yes [id number] 40mg Take 1 U nivers 40 mg 8-20 tablet by ity of tablet 00:00: mouth 2 [place] 00 (two) Medical times Branch daily. montelukast 0 Yes [id number] 10mg Take 1 Univers 10 mg 8-20 tablet by ity of tablet 00:00: mouth [place] 00 daily. Medical Branch cetirizine 0 Yes [id number] 10mg Take 1 U nivers (ZYRTEC) 10 8-20 tablet by ity of mg tablet 00:00: mouth [place] 00 daily. Medical Branch famotidine 0 Yes [id number] 40mg Take 1 U nivers 40 mg 8-20 tablet by ity of tablet 00:00: mouth 2 00 (two) Medical times Branch daily. montelukast Yes [id number] 10mg Take 1 Univers 10 mg 8-20 tablet by ity of tablet 00:00: mouth [place] 00 daily. Medical Branch cetirizine 0 Yes [id number] 10mg Take 1 U nivers (ZYRTEC) 10 8-20 tablet by ity of mg tablet 00:00: mouth [place] 00 daily. Medical Branch famotidine 0 Yes [id number] 40mg Take 1 U nivers 40 mg 8-20 tablet by ity of tablet 00:00: mouth 2 00 (two) Medical times Branch daily. montelukast Yes [id number] 10mg Take 1 Univers 10 mg 8-20 tablet by ity of tablet 00:00: mouth [place] 00 daily. Medical Branch cetirizine 0 Yes [id number] 10mg Take 1 U nivers (ZYRTEC) 10 8-20 tablet by ity of mg tablet 00:00: mouth [place] 00 daily. Medical Branch famotidine 0 Yes [id number] 40mg Take 1 U nivers 40 mg 8-20 tablet by ity of tablet 00:00: mouth 2 [place] 00 (two) Medical times Branch daily. montelukast 0 Yes [id number] 10mg Take 1 Univers 10 mg 8-20 tablet by ity of tablet 00:00: mouth [place] 00 daily. Medical Branch predniSONE 2020-0 2020- No [id number] 40mg Take 2 Univers 20 mg 8-20 08-28 tablets by ity of tablet 00:00: 04:59 mouth [place] 00 :00 daily for Medical 7 days. Branch predniSONE 2020- No [id number] 40mg Take 2 Univers 20 mg 8-20 08-28 tablets by ity of tablet 00:00: 04:59 mouth [place] 00 :00 daily for Medical 7 days. Branch predniSONE 2020- No [id number] 40mg Take 2 Univers 20 mg 8-20 08-28 tablets by ity of tablet 00:00: 04:59 mouth [place] 00 :00 daily for Medical 7 days. Branch predniSONE 2020- No [id number] 40mg Take 2 Univers 20 mg 8-20 08-28 tablets by ity of tablet 00:00: 04:59 mouth [place] 00 :00 daily for Medical 7 days. Branch albuterol-i Yes [id number] 1{puff} Inhale 1 Univers pratropium 8-19 Puff every ity of (COMBIVENT 00:00: 6 (six) [place] RESPIMAT) 00 hours. Medical 20-100 Need Branch mcg/actuati appointmen on inhaler t for more refills. albuterol-i Yes [id number] 1{puff} Inhale 1 Univers pratropium 8-19 Puff every ity of (COMBIVENT 00:00: 6 (six) [place] RESPIMAT) 00 hours. Medical 20-100 Need Branch mcg/actuati appointmen on inhaler t for more refills. albuterol-i Yes [id number] 1{puff} Inhale 1 Univers pratropium 8-19 Puff every ity of (COMBIVENT 00:00: 6 (six) [place] RESPIMAT) 00 hours. Medical 20-100 Need Branch mcg/actuati appointmen on inhaler t for more refills. albuterol-i Yes [id number] 1{puff} Inhale 1 Univers pratropium 8-19 Puff every ity of (COMBIVENT 00:00: 6 (six) [place] RESPIMAT) 00 hours. Medical 20-100 Need Branch mcg/actuati appointmen on inhaler t for more refills. albuterol-i 2020-0 Yes [id number] 1{puff} Inhale 1 Univers pratropium 8-19 Puff every ity of (COMBIVENT 00:00: 6 (six) [place] RESPIMAT) 00 hours. Medical 20-100 Need Branch mcg/actuati appointmen on inhaler t for more refills. albuterol-i 2020-0 Yes [id number] 1{puff} Inhale 1 Univers pratropium 8-19 Puff every ity of (COMBIVENT 00:00: 6 (six) [place] RESPIMAT) 00 hours. Medical 20-100 Need Branch mcg/actuati appointmen on inhaler t for more refills. albuterol-i 2020-0 Yes [id number] 1{puff} Inhale 1 Univers pratropium 8-19 Puff every ity of (COMBIVENT 00:00: 6 (six) [place] RESPIMAT) 00 hours. Medical 20-100 Need Branch mcg/actuati appointmen on inhaler t for more refills. albuterol-i 0 Yes [id number] 1{puff} Inhale 1 Univers pratropium 8-19 Puff every ity of (COMBIVENT 00:00: 6 (six) [place] RESPIMAT) 00 hours. Medical 20-100 Need Branch mcg/actuati appointmen on inhaler t for more refills. hydrOXYzine 0 Yes [id number] 10mg Take 1 Univers 10 mg 8-17 tablet by ity of tablet 00:00: mouth [place] 00 every 6 Medical (six) Branch hours as needed for Itching. hydrOXYzine 0 Yes [id number] 10mg Take 1 Univers 10 mg 8-17 tablet by ity of tablet 00:00: mouth [place] 00 every 6 Medical (six) Branch hours as needed for Itching. hydrOXYzine 0 Yes [id number] 10mg Take 1 Univers 10 mg 8-17 tablet by ity of tablet 00:00: mouth [place] 00 every 6 Medical (six) Branch hours as needed for Itching. hydrOXYzine 0 Yes [id number] 10mg Take 1 Univers 10 mg 8-17 tablet by ity of tablet 00:00: mouth [place] 00 every 6 Medical (six) Branch hours as needed for Itching. hydrOXYzine 2020-0 Yes [id number] 10mg Take 1 Univers 10 mg 8-17 tablet by ity of tablet 00:00: mouth [place] 00 every 6 Medical (six) Branch hours as needed for Itching. hydrOXYzine 2020-0 Yes [id number] 10mg Take 1 Univers 10 mg 8-17 tablet by ity of tablet 00:00: mouth [place] 00 every 6 Medical (six) Branch hours as needed for Itching. hydrOXYzine 2020-0 Yes [id number] 10mg Take 1 Univers 10 mg 8-17 tablet by ity of tablet 00:00: mouth [place] 00 every 6 Medical (six) Branch hours as needed for Itching. hydrOXYzine 2020-0 Yes [id number] 10mg Take 1 Univers 10 mg 8-17 tablet by ity of tablet 00:00: mouth [place] 00 every 6 Medical (six) Branch hours as needed for Itching. traMADoL 2020-0 Yes [id number] 50mg Take 1 Univers (ULTRAM) 50 8-12 tablet by ity of mg tablet 00:00: mouth [place] 00 every 6 Medical (six) Branch hours as needed for Pain (scale 7-10). Indication s: acute pain predniSONE 2020-0 Yes [id number] TAKE ONE Univers 20 mg 8-12 [id number] TABLET BY ity of tablet 00:00: MOUTH [place] 00 DAILY Medical Branch famotidine 2020-0 Yes [id number] 20mg Take 1 Univers 20 mg 8-12 tablet by ity of tablet 00:00: mouth 2 [place] 00 (two) Medical times Branch daily. traMADoL 2020-0 Yes [id number] 50mg Take 1 Univers (ULTRAM) 50 8-12 tablet by ity of mg tablet 00:00: mouth [place] 00 every 6 Medical (six) Branch hours as needed for Pain (scale 7-10). Indication s: acute pain predniSONE 2020-0 Yes [id number] TAKE ONE Univers 20 mg 8-12 [id number] TABLET BY ity of tablet 00:00: MOUTH [place] 00 DAILY Medical Branch famotidine 2020-0 Yes [id number] 20mg Take 1 Univers 20 mg 8-12 tablet by ity of tablet 00:00: mouth 2 [place] 00 (two) Medical times Branch daily. traMADoL 2020-0 Yes [id number] 50mg Take 1 Univers (ULTRAM) 50 8-12 tablet by ity of mg tablet 00:00: mouth [place] 00 every 6 Medical (six) Branch hours as needed for Pain (scale 7-10). Indication s: acute pain predniSONE 2020-0 Yes [id number] TAKE ONE [facility] 20 mg 8-12 [id number] TABLET BY ity of tablet 00:00: MOUTH [place] 00 DAILY Medical Branch famotidine 2020-0 Yes [id number] 20mg Take 1 [facility] 20 mg 8-12 tablet by ity of tablet 00:00: mouth 2 [place] 00 (two) Medical times Branch daily. traMADoL 2020-0 Yes [id number] 50mg Take 1 [facility] (ULTRAM) 50 8-12 tablet by ity of mg tablet 00:00: mouth [place] 00 every 6 Medical (six) Branch hours as needed for Pain (scale 7-10). Indication s: acute pain predniSONE 2020-0 Yes TAKE ONE [facility] 20 mg 8-12 [id number] TABLET BY ity of tablet 00:00: MOUTH [place] 00 DAILY Medical Branch famotidine 2020-0 Yes [id number] 20mg Take 1 [facility] 20 mg 8-12 tablet by ity of tablet 00:00: mouth 2 [place] 00 (two) Medical times Branch daily. traMADoL 2020-0 Yes [id number] 50mg Take 1 [facility] (ULTRAM) 50 8-12 tablet by ity of mg tablet 00:00: mouth [place] 00 every 6 Medical (six) Branch hours as needed for Pain (scale 7-10). Indication s: acute pain predniSONE 2020-0 Yes [id number] TAKE ONE [facility] 20 mg 8-12 [id number] TABLET BY ity of tablet 00:00: MOUTH [place] 00 DAILY Medical Branch famotidine 2020-0 Yes [id number] 20mg Take 1 [facility] 20 mg 8-12 tablet by ity of tablet 00:00: mouth 2 [place] 00 (two) Medical times Branch daily. traMADoL 2020-0 Yes [id number] 50mg Take 1 [facility] (ULTRAM) 50 8-12 tablet by ity of mg tablet 00:00: mouth [place] 00 every 6 Medical (six) Branch hours as needed for Pain (scale 7-10). Indication s: acute pain predniSONE 2020-0 Yes [id number] TAKE ONE [facility] 20 mg 8-12 [id number] TABLET BY ity of tablet 00:00: MOUTH [place] 00 DAILY Medical Branch famotidine 2020-0 Yes [id number] 20mg Take 1 [facility] 20 mg 8-12 tablet by ity of tablet 00:00: mouth 2 (two) Medical times Branch daily. traMADoL 2020-0 Yes [id number] 50mg Take 1 [facility] (ULTRAM) 50 8-12 tablet by ity of mg tablet 00:00: mouth [place] 00 every 6 Medical (six) Branch hours as needed for Pain (scale 7-10). Indication s: acute pain predniSONE 2020-0 Yes [id number] TAKE ONE [facility] 20 mg 8-12 [id number] TABLET BY ity of tablet 00:00: MOUTH [place] 00 DAILY Medical Branch famotidine 2020-0 Yes [id number] 20mg Take 1 [facility] 20 mg 8-12 tablet by ity of tablet 00:00: mouth 2 (two) Medical times Branch daily. traMADoL 2020-0 Yes [id number] 50mg Take 1 [facility] (ULTRAM) 50 8-12 tablet by ity of mg tablet 00:00: mouth [place] 00 every 6 Medical (six) Branch hours as needed for Pain (scale 7-10). Indication s: acute pain predniSONE 2020-0 Yes [id number] TAKE ONE [facility] 20 mg 8-12 [id number] TABLET BY ity of tablet 00:00: MOUTH 00 DAILY Medical Branch famotidine 2020-0 Yes [id number] 20mg Take 1 [facility] 20 mg 8-12 tablet by ity of tablet 00:00: mouth 2 (two) Medical times Branch daily. cephALEXin 2020-0 2021- No [id number] 500mg Take 1 [facility] (KEFLEX) 8-24 [id number] capsule by it y of 500 mg 00:00: 00:00 mouth 4 [place] capsule 00 :00 (four) Medical times Branch daily. EPINEPHrine 2020-0 Yes Univer s 0.15 mg/0.3 8-05 ity of mL 00:00: [place] injection 00 Medical Branch proMETHazin 2020-0 Yes Univer s e 12.5 mg 8-05 ity of tablet 00:00: [place] 00 Medical Branch EPINEPHrine 2020-0 Yes Univer s 0.15 mg/0.3 8-05 ity of mL 00:00: [place] injection 00 Medical Branch proMETHazin 2020-0 Yes Univer s e 12.5 mg 8-05 ity of tablet 00:00: [place] 00 Medical Branch EPINEPHrine 2020-0 Yes Univer s 0.15 mg/0.3 8-05 ity of mL 00:00: [place] injection Medical Branch proMETHazin 2020-0 Yes Univer s e 12.5 mg 8-05 ity of tablet 00:00: Medical Branch EPINEPHrine 2020-0 Yes Univer s 0.15 mg/0.3 8-05 ity of mL 00:00: [place] injection Medical Branch proMETHazin 2020-0 Yes Univer s e 12.5 mg 8-05 ity of tablet 00:00: [place] [facility] EPINEPHrine 2020-0 Yes Univer s 0.15 mg/0.3 8-05 ity of mL 00:00: [place] injection Medical Branch proMETHazin 2020-0 Yes Univer s e 12.5 mg 8-05 ity of tablet 00:00: [place] [facility] EPINEPHrine 2020-0 Yes Univer s 0.15 mg/0.3 8-05 ity of mL 00:00: [place] injection Medical Branch proMETHazin 2020-0 Yes Univer s e 12.5 mg 8-05 ity of tablet 00:00: [place] [facility] EPINEPHrine 2020-0 Yes Univer s 0.15 mg/0.3 8-05 ity of mL 00:00: [place] injection Medical Branch proMETHazin 2020-0 Yes Univer s e 12.5 mg 8-05 ity of tablet 00:00: [place] [facility] EPINEPHrine 2020-0 Yes Univer s 0.15 mg/0.3 8-05 ity of mL 00:00: [place] injection Medical Branch proMETHazin 2020-0 Yes Univer s e 12.5 mg 8-05 ity of tablet 00:00: [place] [facility] mirtazapine 2021-0 Yes Univer s 7.5 mg 7-29 ity of tablet 00:00: [place] [facility] omeprazole 2021-0 Yes [facility] 40 mg 7-29 ity of capsule 00:00: Medical Branch mirtazapine 2021-0 Yes Univer s 7.5 mg 7-29 ity of tablet 00:00: [place] [facility] omeprazole 2021-0 Yes [facility] 40 mg 7-29 ity of capsule 00:00: [place] 00 Medical Branch mirtazapine 2021-0 Yes Univer s 7.5 mg 7-29 ity of tablet 00:00: [place] [address] Medical Branch omeprazole 2021-0 Yes [facility] 40 mg 7-29 ity of capsule 00:00: [place] [address] Medical Branch mirtazapine 2021-0 Yes Univer s 7.5 mg 7-29 ity of tablet 00:00: [place] [address] Medical Branch omeprazole 2021-0 Yes [facility] 40 mg 7-29 ity of capsule 00:00: [place] [address] Medical Branch mirtazapine 2021-0 Yes Univer s 7.5 mg 7-29 ity of tablet 00:00: [place] [address] Medical Branch omeprazole 2021-0 Yes [facility] 40 mg 7-29 ity of capsule 00:00: [place] [address] Medical Branch mirtazapine 2021-0 Yes Univer s 7.5 mg 7-29 ity of tablet 00:00: [place] [address] Medical Branch omeprazole 2021-0 Yes [facility] 40 mg 7-29 ity of capsule 00:00: [place] [address] Medical Branch mirtazapine 2021-0 Yes Univer s 7.5 mg 7-29 ity of tablet 00:00: [place] [address] Medical Branch omeprazole 2021-0 Yes [facility] 40 mg 7-29 ity of capsule 00:00: [place] [address] Medical Branch mirtazapine 2021-0 Yes Univer s 7.5 mg 7-29 ity of tablet 00:00: [place] [address] Medical Branch omeprazole 2021-0 Yes [facility] 40 mg 7-29 ity of capsule 00:00: [place] [address] Medical Branch cyclobenzap 2021-0 Yes Univer s rine 10 mg 7-27 ity of tablet 00:00: [place] [address] Medical Branch cyclobenzap 2021-0 Yes Univer s rine 10 mg 7-27 ity of tablet 00:00: [place] [address] Medical Branch cyclobenzap 2021-0 Yes Univer s rine 10 mg 7-27 ity of tablet 00:00: [place] [address] Medical Branch cyclobenzap 2021-0 Yes Univer s rine 10 mg 7-27 ity of tablet 00:00: [place] [address] Medical Branch cyclobenzap 2021-0 Yes Univer s rine 10 mg 7-27 ity of tablet 00:00: [place] [address] Medical Branch cyclobenzap 2021-0 Yes Univer s rine 10 mg 7-27 ity of tablet 00:00: [place] 00 Medical Branch cyclobenzap 2020-0 Yes Univer s rine 10 mg 7-27 ity of tablet 00:00: [place] 00 Medical Branch cyclobenzap 2020-0 Yes Univer s rine 10 mg 7-27 ity of tablet 00:00: [place] 00 Medical Branch doxepin 100 2020-0 Yes Univer s mg capsule 7-19 ity of 00:00: [place] [facility] doxepin 100 2020-0 Yes Univer s mg capsule 7-19 ity of 00:00: [place] [facility] doxepin 100 2020-0 Yes Univer s mg capsule 7-19 ity of 00:00: [place] [facility] doxepin 100 2020-0 Yes Univer s mg capsule 7-19 ity of 00:00: [place] [facility] doxepin 100 2020-0 Yes Univer s mg capsule 7-19 ity of 00:00: [place] [facility] doxepin 100 2020-0 Yes Univer s mg capsule 7-19 ity of 00:00: [place] [facility] doxepin 100 2020-0 Yes Univer s mg capsule 7-19 ity of 00:00: [place] 00 Medical Branch doxepin 100 2020-0 Yes Univer s mg capsule 7-19 ity of 00:00: [place] 00 Medical Branch BELSOMRA 20 2020-0 Yes Univer s mg Tab 6-25 ity of 00:00: [place] 00 Medical Branch BELSOMRA 20 2020-0 Yes Univer s mg Tab 6-25 ity of 00:00: [place] 00 Medical Branch BELSOMRA 20 2020-0 Yes Univer s mg Tab 6-25 ity of 00:00: [place] 00 Medical Branch BELSOMRA 20 2020-0 Yes Univer s mg Tab 6-25 ity of 00:00: [place] 00 Medical Branch BELSOMRA 20 2020-0 Yes Univer s mg Tab 6-25 ity of 00:00: [place] 00 Medical Branch BELSOMRA 20 2020-0 Yes Univer s mg Tab 6-25 ity of 00:00: [place] 00 Medical Branch BELSOMRA 20 2020-0 Yes Univer s mg Tab 6-25 ity of 00:00: [place] 00 Medical Branch BELSOMRA 20 Yes Univer s mg Tab 6-25 ity of 00:00: [place] [facility] oxyCODONE-a Yes Univer s cetaminophe 6-24 ity of n 10-325 mg 00:00: [place] per tablet 00 Medical Branch oxyCODONE-a Yes Univer s cetaminophe 6-24 ity of n 10-325 mg 00:00: [place] per tablet Medical Branch oxyCODONE-a Yes Univer s cetaminophe 6-24 ity of n 10-325 mg 00:00: [place] per tablet Medical Branch oxyCODONE-a Yes Univer s cetaminophe 6-24 ity of n 10-325 mg 00:00: [place] per tablet Medical Branch oxyCODONE-a Yes Univer s cetaminophe 6-24 ity of n 10-325 mg 00:00: [place] per tablet Medical Branch oxyCODONE-a Yes Univer s cetaminophe 6-24 ity of n 10-325 mg 00:00: [place] per tablet Medical Branch oxyCODONE-a Yes Univer s cetaminophe 6-24 ity of n 10-325 mg 00:00: [place] per tablet Medical Branch oxyCODONE-a Yes Univer s cetaminophe 6-24 ity of n 10-325 mg 00:00: [place] per tablet Medical Branch CARVEDILOL Yes [id number] TAKE ONE [facility] 6.25 mg 5-27 TABLET BY ity of tablet 00:00: MOUTH 00 TWICE A Medical DAY WITH Branch MEALS FOR 90 DAYS CARVEDILOL Yes [id number] TAKE ONE [facility] 6.25 mg 5-27 TABLET BY ity of tablet 00:00: MOUTH 00 TWICE A Medical DAY WITH Branch MEALS FOR 90 DAYS CARVEDILOL Yes [id number] TAKE ONE [facility] 6.25 mg 5-27 TABLET BY ity of tablet 00:00: MOUTH 00 TWICE A Medical DAY WITH Branch MEALS FOR 90 DAYS CARVEDILOL Yes [id number] TAKE ONE [facility] 6.25 mg 5-27 TABLET BY ity of tablet 00:00: MOUTH [place] 00 TWICE A Medical DAY WITH Branch MEALS FOR 90 DAYS CARVEDILOL 2020-0 Yes [id number] TAKE ONE [facility] 6.25 mg 5-27 TABLET BY ity of tablet 00:00: MOUTH [place] 00 TWICE A Medical DAY WITH Branch MEALS FOR 90 DAYS CARVEDILOL 2020-0 Yes [id number] TAKE ONE [facility] 6.25 mg 5-27 TABLET BY ity of tablet 00:00: MOUTH [place] 00 TWICE A Medical DAY WITH Branch MEALS FOR 90 DAYS CARVEDILOL 2020-0 Yes [id number] TAKE ONE [facility] 6.25 mg 5-27 TABLET BY ity of tablet 00:00: MOUTH [place] 00 TWICE A Medical DAY WITH Branch MEALS FOR 90 DAYS CARVEDILOL 2020-0 Yes [id number] TAKE ONE [facility] 6.25 mg 5-27 TABLET BY ity of tablet 00:00: MOUTH [place] 00 TWICE A Medical DAY WITH Branch MEALS FOR 90 DAYS methylPREDN 2019- Yes [id number] Take by [facility] ISolone 2 9106 mouth ity of (MEDROL, 00:00: SEE-INSTRU [place] NINI,) 4 mg 00 CTIONS. Medica l tablets follow Branch package directions cetirizine 2019-06 Yes [id number] 10mg Take 1 U nivers 10 mg 2-07 tablet by ity of tablet 00:00: mouth [place] 00 daily. Medical Branch methylPREDN 2019- Yes [id number] Take by [facility] ISolone 07-28 9106 mouth ity of (MEDROL, 00:00: SEE-INSTRU [place] NINI,) 4 mg 00 CTIONS. Medica l tablets follow Branch package directions cetirizine 2019- Yes [id number] 10mg Take 1 U nivers 10 mg 2-07 tablet by ity of tablet 00:00: mouth [place] 00 daily. Medical Branch methylPREDN 2019- Yes [id number] Take by [facility] ISolone 2-07 9106 mouth ity of (MEDROL, 00:00: SEE-INSTRU [place] NINI,) 4 mg 00 CTIONS. Medica l tablets follow Branch package directions cetirizine 2019- Yes [id number] 10mg Take 1 U nivers 10 mg 2-07 tablet by ity of tablet 00:00: mouth [place] 00 daily. Medical Branch methylPREDN 2019-06 Yes [id number] Take by [facility] ISolone 2-07 9106 mouth ity of (MEDROL, 00:00: SEE-INSTRU [place]INI,) 4 mg 00 CTIONS. Medica l tablets follow Branch package directions cetirizine 2019-06 Yes [id number] 10mg Take 1 U nivers 10 mg 2-07 tablet by ity of tablet 00:00: mouth [place] 00 daily. Medical Branch methylPREDN 2019-06 Yes [id number] Take by [facility] ISolone 2-07 mouth ity of (MEDROL, 00:00: SEE-INSTRU [place] NINI,) 4 mg 00 CTIONS. Medica l tablets follow Branch package directions cetirizine 2019-06 Yes [id number] 10mg Take 1 U nivers 10 mg 2-07 tablet by ity of tablet 00:00: mouth [place] 00 daily. Medical Branch methylPREDN 2019-06 Yes [id number] Take by [facility] ISolone 2-07 mouth ity of (MEDROL, 00:00: SEE-INSTRU [place]INI,) 4 mg 00 CTIONS. Medica l tablets follow Branch package directions cetirizine 2019-06 Yes [id number] 10mg Take 1 U nivers 10 mg 2-07 tablet by ity of tablet 00:00: mouth [place] 00 daily. Medical Branch methylPREDN 2019-06 Yes [id number] Take by [facility] ISolone 2-07 mouth ity of (MEDROL, 00:00: SEE-INSTRU [place]INI,) 4 mg 00 CTIONS. Medica l tablets follow Branch package directions cetirizine 2019-06 Yes [id number] 10mg Take 1 U nivers 10 mg 2-07 tablet by ity of tablet 00:00: mouth [place] 00 daily. Medical Branch methylPREDN 2019-06 Yes [id number] Take by [facility] ISolone 2-07 mouth ity of (MEDROL, 00:00: SEE-INSTRU [place]INI,) 4 mg 00 CTIONS. Medica l tablets follow Branch package directions cetirizine 2019-06 Yes [id number] 10mg Take 1 U nivers 10 mg 2-07 tablet by ity of tablet 00:00: mouth [place] 00 daily. Medical Branch benzonatate 2019-06- No [id number] 100mg Take 1 [facility] (TESSALON 2-07 08-24 capsule by ity of PERLES) 100 00:00: 00:00 mouth 3 [place] mg capsule 00 :00 (three) Medica l times Branch daily as needed for Cough. budesonide- 2019-0 Yes [id number] 2{puff} Inhale 2 [facility] formoteroL 8-21 [id number] Puffs 2 ity of (SYMBICORT) 00:00: (two) [place] 160-4.5 00 times Medical mcg/actuati daily. Branch on inhaler budesonide- 2019-0 Yes [id number] 2{puff} Inhale 2 [facility] formoteroL 8-21 [id number] Puffs 2 ity of (SYMBICORT) 00:00: (two) [place] 160-4.5 00 times Medical mcg/actuati daily. Branch on inhaler budesonide- 0 Yes [id number] 2{puff} Inhale 2 [facility] formoteroL 8-21 [id number] Puffs 2 ity of (SYMBICORT) 00:00: (two) [place] 160-4.5 00 times Medical mcg/actuati daily. Branch on inhaler budesonide- 0 Yes [id number] 2{puff} Inhale 2 [facility] formoteroL 8-21 [id number] Puffs 2 ity of (SYMBICORT) 00:00: (two) [place] 160-4.5 00 times Medical mcg/actuati daily. Branch on inhaler budesonide- 0 Yes [id number] 2{puff} Inhale 2 [facility] formoteroL 8-21 [id number] Puffs 2 ity of (SYMBICORT) 00:00: (two) [place] 160-4.5 00 times Medical mcg/actuati daily. Branch on inhaler budesonide- 0 Yes [id number] 2{puff} Inhale 2 [facility] formoteroL 8-21 [id number] Puffs 2 ity of (SYMBICORT) 00:00: (two) [place] 160-4.5 00 times Medical mcg/actuati daily. Branch on inhaler budesonide- 0 Yes [id number] 2{puff} Inhale 2 [facility] formoteroL 8-21 [id number] Puffs 2 ity of (SYMBICORT) 00:00: (two) [place] 160-4.5 00 times Medical mcg/actuati daily. Branch on inhaler budesonide- 2019-0 Yes [id number] 2{puff} Inhale 2 [facility] formoteroL 8-21 [id number] Puffs 2 ity of (SYMBICORT) 00:00: (two) [place] 160-4.5 00 times Medical mcg/actuati daily. Branch on inhaler clonazePAM 2020-0 Yes 1mg Take 1 mg Un kizzy (KLONOPIN) 5-20 by mouth ity o f 1 mg tablet 14:46: daily. [address] vit A/vit 2020-0 Yes Take by Unive rs C/vit 5-20 mouth. ity of E/zinc/donell 14:46: [facility] ([place] [address] Medical AREDS ORAL) Branch clonazePAM 2020-0 Yes 1mg Take 1 mg Un kizzy (KLONOPIN) 5-20 by mouth ity o f 1 mg tablet 14:46: daily. [address] vit A/vit 2020-0 Yes Take by Unive rs C/vit 5-20 mouth. ity of E/zinc/donell 14:46: [facility] ([place] [address] Medical AREDS ORAL) Branch clonazePAM 2020-0 Yes 1mg Take 1 mg Un kizzy (KLONOPIN) 5-20 by mouth ity o f 1 mg tablet 14:46: daily. [address] vit A/vit 2020-0 Yes Take by Unive rs C/vit 5-20 mouth. ity of E/zinc/donell 14:46: [facility] ([place] [address] Medical AREDS ORAL) Branch clonazePAM 2020-0 Yes 1mg Take 1 mg Un kizzy (KLONOPIN) 5-20 by mouth ity o f 1 mg tablet 14:46: daily. [address] vit A/vit 2020-0 Yes Take by Unive rs C/vit 5-20 mouth. ity of E/zinc/donell 14:46: [facility] ([place] [address] Medical [employer] ORAL) Branch clonazePAM 2020-0 Yes 1mg Take 1 mg Un kizzy (KLONOPIN) 5-20 by mouth ity o f 1 mg tablet 09:46: daily. [address] vit A/vit 2020-0 Yes Take by Unive rs C/vit 5-20 mouth. ity of E/zinc/donell 09:46: [facility] ([place] [address] Medical AR[employer]S ORAL) Branch clonazePAM 2020-0 Yes 1mg Take 1 mg Un kizzy (KLONOPIN) 5-20 by mouth ity o f 1 mg tablet 09:46: daily. [address] vit A/vit 2020-0 Yes Take by Unive rs C/vit 5-20 mouth. ity of E/zinc/donell 09:46: [facility] ([place] [address] Medical [employer]AL) Branch clonazePAM 2020-0 Yes 1mg Take 1 mg Un kizzy (KLONOPIN) 5-20 by mouth ity o f 1 mg tablet 09:46: daily. [address] vit A/vit 2020-0 Yes Take by Unive rs C/vit 5-20 mouth. ity of E/zinc/donell 09:46: [facility] ([place] [address] Medical AR[employer]AL) Branch clonazePAM 2020-0 Yes 1mg Take 1 mg Un kizzy (KLONOPIN) 5-20 by mouth ity o f 1 mg tablet 09:46: daily. [address] vit A/vit 2020-0 Yes Take by Unive rs C/vit 5-20 mouth. ity of E/zinc/donell 09:46: [facility] ([place] [address] Medical [employer]AL) Branch benzonatate 2019-0 2020- No [id number] 100mg Take 1 [facility] (TESSALON 5-20 08-24 capsule by ity of DAVID) 100 00:00: 00:00 mouth 3 [place] mg capsule 00 :00 (three) Medica l times Branch daily as needed for Cough. budesonide- 2019-0 Yes [id number] 2{puff} Inhale 2 [facility] formoteroL 5-12 Puffs 2 ity of (SYMBICORT) 00:00: (two) [place] 160-4.5 00 times Medical mcg/actuati daily. Branch on inhaler budesonide- 2020-0 Yes [id number] 2{puff} Inhale 2 [facility] formoteroL 5-12 Puffs 2 ity of (SYMBICORT) 00:00: (two) [place] 160-4.5 00 times Medical mcg/actuati daily. Branch on inhaler budesonide- 2020-0 Yes [id number] 2{puff} Inhale 2 [facility] formoteroL 5-12 Puffs 2 ity of (SYMBICORT) 00:00: (two) [place] 160-4.5 00 times Medical mcg/actuati daily. Branch on inhaler budesonide- 2020-0 Yes [id number] 2{puff} Inhale 2 [facility] formoteroL 5-12 Puffs 2 ity of (SYMBICORT) 00:00: (two) [place] 160-4.5 00 times Medical mcg/actuati daily. Branch on inhaler budesonide- 2020-0 Yes [id number] 2{puff} Inhale 2 [facility] formoteroL 5-12 Puffs 2 ity of (SYMBICORT) 00:00: (two) [place] 160-4.5 00 times Medical mcg/actuati daily. Branch on inhaler budesonide- 2019-0 Yes [id number] 2{puff} Inhale 2 [facility] formoteroL 5-12 Puffs 2 ity of (SYMBICORT) 00:00: (two) [place] 160-4.5 00 times Medical mcg/actuati daily. Branch on inhaler budesonide- 2019-0 Yes [id number] 2{puff} Inhale 2 [facility] formoteroL 5-12 Puffs 2 ity of (SYMBICORT) 00:00: (two) [place] 160-4.5 00 times Medical mcg/actuati daily. Branch on inhaler budesonide- 2019-0 Yes [id number] 2{puff} Inhale 2 [facility] formoteroL 5-12 Puffs 2 ity of (SYMBICORT) 00:00: (two) [place] 160-4.5 00 times Medical mcg/actuati daily. Branch on inhaler albuterol 2020-0 Yes [id number] 2{puff} Inhale 2 [facility] 90 4-03 Puffs ity of mcg/actuati 00:00: every 6 [place] on inhaler 00 (six) Medical hours as Branch needed for Wheezing or Shortness of Breath. albuterol 2020-0 Yes [id number] 2{puff} Inhale 2 [facility] 90 4-03 Puffs ity of mcg/actuati 00:00: every 6 [place] on inhaler 00 (six) Medical hours as Branch needed for Wheezing or Shortness of Breath. albuterol 2020-0 Yes [id number] 2{puff} Inhale 2 [facility] 90 4-03 Puffs ity of mcg/actuati 00:00: every 6 [place] on inhaler 00 (six) Medical hours as Branch needed for Wheezing or Shortness of Breath. albuterol Yes [id number] 2{puff} Inhale 2 [facility] 90 4-03 Puffs ity of mcg/actuati 00:00: every 6 [place] on inhaler 00 (six) Medical hours as Branch needed for Wheezing or Shortness of Breath. albuterol Yes [id number] 2{puff} Inhale 2 [facility] 90 4-03 Puffs ity of mcg/actuati 00:00: every 6 [place] on inhaler 00 (six) Medical hours as Branch needed for Wheezing or Shortness of Breath. albuterol Yes [id number] 2{puff} Inhale 2 [facility] 90 4-03 Puffs ity of mcg/actuati 00:00: every 6 [place] on inhaler 00 (six) Medical hours as Branch needed for Wheezing or Shortness of Breath. albuterol Yes [id number] 2{puff} Inhale 2 [facility] 90 4-03 Puffs ity of mcg/actuati 00:00: every 6 [place] on inhaler 00 (six) Medical hours as Branch needed for Wheezing or Shortness of Breath. albuterol Yes [id number] 2{puff} Inhale 2 [facility] 90 4-03 Puffs ity of mcg/actuati 00:00: every 6 [place] on inhaler 00 (six) Medical hours as Branch needed for Wheezing or Shortness of Breath. traMADol 50 2018- Yes [id number] 50mg Take 1 U nivers mg tablet 9-16 tablet by ity o f 00:00: mouth [place] 00 every 6 Medical (six) Branch hours as needed for Pain (scale 4-6). ibuprofen 2018- Yes [id number] 800mg Take 1 Un kizzy 800 mg 9-16 tablet by ity of tablet 00:00: mouth 3 00 (three) Medical times Branch daily with meals. ranitidine 2018-0 Yes [id number] 150mg Take 1 U nivers 150 mg 9-16 tablet by ity of tablet 00:00: mouth 2 00 (two) Medical times Branch daily. traMADol 50 2018-0 Yes [id number] 50mg Take 1 U nivers mg tablet 9-16 tablet by ity o f 00:00: mouth [place] 00 every 6 Medical (six) Branch hours as needed for Pain (scale 4-6). ibuprofen 2019-0 Yes [id number] 800mg Take 1 Un kizzy 800 mg 9-16 tablet by ity of tablet 00:00: mouth 3 (three) Medical times Branch daily with meals. ranitidine 2019-0 Yes [id number] 150mg Take 1 U nivers 150 mg 9-16 tablet by ity of tablet 00:00: mouth 2 (two) Medical times Branch daily. traMADol 50 2018-0 Yes [id number] 50mg Take 1 U nivers mg tablet 9-16 tablet by ity o f 00:00: mouth [place] 00 every 6 Medical (six) Branch hours as needed for Pain (scale 4-6). ibuprofen 2018-0 Yes [id number] 800mg Take 1 Un kizzy 800 mg 9-16 tablet by ity of tablet 00:00: mouth 3 (three) Medical times Branch daily with meals. ranitidine 2018-0 Yes [id number] 150mg Take 1 U nivers 150 mg 9-16 tablet by ity of tablet 00:00: mouth 2 (two) Medical times Branch daily. traMADol 50 2018-0 Yes [id number] 50mg Take 1 U nivers mg tablet 9-16 tablet by ity o f 00:00: mouth 00 every 6 Medical (six) Branch hours as needed for Pain (scale 4-6). ibuprofen 2018-0 Yes [id number] 800mg Take 1 Un kizzy 800 mg 9-16 tablet by ity of tablet 00:00: mouth 3 (three) Medical times Branch daily with meals. ranitidine 2018-0 Yes [id number] 150mg Take 1 U nivers 150 mg 9-16 tablet by ity of tablet 00:00: mouth 2 (two) Medical times Branch daily. traMADol 50 2018-0 Yes [id number] 50mg Take 1 U nivers mg tablet 9-16 tablet by ity o f 00:00: mouth [place] 00 every 6 Medical (six) Branch hours as needed for Pain (scale 4-6). ibuprofen 2018-0 Yes [id number] 800mg Take 1 Un kizzy 800 mg 9-16 tablet by ity of tablet 00:00: mouth 3 (three) Medical times Branch daily with meals. ranitidine 2019-0 Yes [id number] 150mg Take 1 U nivers 150 mg 9-16 tablet by ity of tablet 00:00: mouth 2 (two) Medical times Branch daily. traMADol 50 2019-0 Yes [id number] 50mg Take 1 U nivers mg tablet 9-16 tablet by ity o f 00:00: mouth 00 every 6 Medical (six) Branch hours as needed for Pain (scale 4-6). ibuprofen 2019-0 Yes [id number] 800mg Take 1 Un kizzy 800 mg 9-16 tablet by ity of tablet 00:00: mouth 3 (three) Medical times Branch daily with meals. ranitidine 2018-0 Yes [id number] 150mg Take 1 U nivers 150 mg 9-16 tablet by ity of tablet 00:00: mouth (two) Medical times Branch daily. traMADol 50 2018-0 Yes [id number] 50mg Take 1 U nivers mg tablet 9-16 tablet by ity o f 00:00: mouth every 6 Medical (six) Branch hours as needed for Pain (scale 4-6). ibuprofen 2018-0 Yes [id number] 800mg Take 1 Un kizzy 800 mg 9-16 tablet by ity of tablet 00:00: mouth (three) Medical times Branch daily with meals. ranitidine 2018-0 Yes [id number] 150mg Take 1 U nivers 150 mg 9-16 tablet by ity of tablet 00:00: mouth (two) Medical times Branch daily. traMADol 50 2018-0 Yes [id number] 50mg Take 1 [facility] mg tablet 9-16 [id number] tablet by ity of 00:00: mouth [place] 00 every 6 Medical (six) Branch hours as needed for Pain (scale 4-6). ibuprofen 2019-0 Yes [id number] 800mg Take 1 [facility] 800 mg 9-16 [id number] tablet by ity of tablet 00:00: mouth 3 (three) Medical times Branch daily with meals. ranitidine 2019-0 Yes [id number] 150mg Take 1 [facility] 150 mg 9-16 [id number] tablet by ity of tablet 00:00: mouth 2 (two) Medical times Branch daily. cetirizine 2019-0 Yes [id number] 10mg Take 1 U nivers 10 mg 9-13 tablet by ity of tablet 00:00: mouth [place] 00 daily. [facility] cetirizine Yes [id number] 10mg Take 1 U nivers 10 mg 9-13 tablet by ity of tablet 00:00: mouth [place] 00 daily. [facility] Branch cetirizine Yes [id number] 10mg Take 1 U nivers 10 mg 9-13 tablet by ity of tablet 00:00: mouth [place] 00 daily. [facility] cetirizine Yes [id number] 10mg Take 1 U nivers 10 mg 9-13 tablet by ity of tablet 00:00: mouth [place] 00 daily. [facility] cetirizine Yes [id number] 10mg Take 1 U nivers 10 mg 9-13 tablet by ity of tablet 00:00: mouth [place] 00 daily. [facility] cetirizine Yes [id number] 10mg Take 1 U nivers 10 mg 9-13 tablet by ity of tablet 00:00: mouth [place] 00 daily. [facility] cetirizine Yes [id number] 10mg Take 1 U nivers 10 mg 9-13 tablet by ity of tablet 00:00: mouth [place] 00 daily. [facility] cetirizine Yes [id number] 10mg Take 1 U nivers 10 mg 9-13 tablet by ity of tablet 00:00: mouth [place] 00 daily. [facility] dextroamphe Yes TAKE 1 Univ ers [...] FIRST DOSE IN THE MORNING fluticasone Yes [id number] 2{spray Use 2 Univers 50 5-08 } Sprays in ity of mcg/actuati 00:00: each [place] on nasal 00 nostril 2 Medica l spray (two) Branch times daily. montelukast Yes [id number] 10mg Take 1 Univers 10 mg 5-08 tablet by ity of tablet 00:00: mouth [place] 00 daily. Medical Branch fluticasone Yes [id number] 2{spray Use 2 Univers 50 5-08 } Sprays in ity of mcg/actuati 00:00: each [place] on nasal 00 nostril 2 Medica l spray (two) Branch times daily. montelukast Yes [id number] 10mg Take 1 Univers 10 mg 5-08 tablet by ity of tablet 00:00: mouth [place] 00 daily. Medical Branch fluticasone Yes [id number] 2{spray Use 2 Univers 50 5-08 } Sprays in ity of mcg/actuati 00:00: each [place] on nasal 00 nostril 2 Medica l spray (two) Branch times daily. montelukast Yes [id number] 10mg Take 1 Univers 10 mg 5-08 tablet by ity of tablet 00:00: mouth [place] 00 daily. Medical Branch fluticasone Yes [id number] 2{spray Use 2 Univers 50 5-08 } Sprays in ity of mcg/actuati 00:00: each [place] on nasal 00 nostril 2 Medica l spray (two) Branch times daily. montelukast Yes [id number] 10mg Take 1 Univers 10 mg 5-08 tablet by ity of tablet 00:00: mouth [place] 00 daily. Medical Branch fluticasone Yes [id number] 2{spray Use 2 Univers 50 5-08 } Sprays in ity of mcg/actuati 00:00: each on nasal 00 nostril 2 Medica l spray (two) Branch times daily. montelukast Yes [id number] 10mg Take 1 Univers 10 mg 5-08 tablet by ity of tablet 00:00: mouth [place] 00 daily. Medical Branch fluticasone Yes [id number] 2{spray Use 2 Univers 50 5-08 } Sprays in ity of mcg/actuati 00:00: each on nasal 00 nostril 2 Medica l spray (two) Branch times daily. montelukast Yes [id number] 10mg Take 1 Univers 10 mg 5-08 tablet by ity of tablet 00:00: mouth [place] 00 daily. Medical Branch fluticasone Yes [id number] 2{spray Use 2 Univers 50 5-08 } Sprays in ity of mcg/actuati 00:00: each on nasal 00 nostril 2 Medica l spray (two) Branch times daily. montelukast Yes [id number] 10mg Take 1 Univers 10 mg 5-08 tablet by ity of tablet 00:00: mouth [place] 00 daily. Medical Branch fluticasone Yes [id number] 2{spray Use 2 Univers 50 5-08 } Sprays in ity of mcg/actuati 00:00: each [place] on nasal 00 nostril 2 Medica l spray (two) Branch times daily. montelukast Yes [id number] 10mg Take 1 Univers 10 mg 5-08 tablet by ity of tablet 00:00: mouth [place] 00 daily. Medical Branch Cholecalcif Yes [id number] 5000U Take 1 Univers maribel, 2-25 tablet by ity of Vitamin D3, 00:00: mouth [place] (VITAMIN 00 daily. Medical D3) 5,000 Take with Branc h unit tablet food. Cholecalcif 2019-0 Yes [id number] 5000U Take 1 Univers maribel, 2-25 tablet by ity of Vitamin D3, 00:00: mouth [place] (VITAMIN 00 daily. Medical D3) 5,000 Take with Branc h unit tablet food. Cholecalcif 2019-0 Yes [id number] 5000U Take 1 Univers maribel, 2-25 tablet by ity of Vitamin D3, 00:00: mouth [place] (VITAMIN 00 daily. Medical D3) 5,000 Take with Branc h unit tablet food. Cholecalcif 2019-0 Yes [id number] 5000U Take 1 Univers maribel, 2-25 tablet by ity of Vitamin D3, 00:00: mouth [place] (VITAMIN 00 daily. Medical D3) 5,000 Take with Branc h unit tablet food. Cholecalcif 2018-0 Yes [id number] 5000U Take 1 Univers maribel, 2-25 tablet by ity of Vitamin D3, 00:00: mouth [place] (VITAMIN 00 daily. Medical D3) 5,000 Take with Branc h unit tablet food. Cholecalcif 2018-0 Yes [id number] 5000U Take 1 Univers maribel, 2-25 tablet by ity of Vitamin D3, 00:00: mouth [place] (VITAMIN 00 daily. Medical D3) 5,000 Take with Branc h unit tablet food. Cholecalcif 2018-0 Yes [id number] 5000U Take 1 Univers maribel, 2-25 tablet by ity of Vitamin D3, 00:00: mouth [place] (VITAMIN 00 daily. Medical D3) 5,000 Take with Branc h unit tablet food. Cholecalcif 2018-0 Yes [id number] 5000U Take 1 Univers maribel, 2-25 tablet by ity of Vitamin D3, 00:00: mouth [place] (VITAMIN 00 daily. Medical D3) 5,000 Take with Branc h unit tablet food. buPROPion 2019-0 Yes 1{tbl} Take 1 Univ ers XL 150 mg 2-22 tablet by ity o f 24 hr 00:00: mouth [place] tablet 00 daily. Medical Branch buPROPion 2019-0 Yes 1{tbl} Take 1 Univ ers XL 150 mg 2-22 tablet by ity o f 24 hr 00:00: mouth [place] tablet 00 daily. Medical Branch buPROPion 2019-0 Yes 1{tbl} Take 1 Univ ers XL [...] mg by ity of tablet 00:00: mouth (two) Medical times Branch daily. SERTraline 2018-0 Yes 100mg Take 100 Un kizzy 100 mg 9-26 mg by ity of tablet 00:00: mouth (two) Medical times Branch daily. SERTraline 2018-0 Yes 100mg Take 100 Un kizzy 100 mg 9-26 mg by ity of tablet 00:00: mouth (two) Medical times Branch daily. SERTraline 2018-0 Yes 100mg Take 100 Un kizzy 100 mg 9-26 mg by ity of tablet 00:00: mouth (two) Medical times Branch daily. SERTraline 2018-0 Yes 100mg Take 100 Un kizzy 100 mg 9-26 mg by ity of tablet 00:00: mouth (two) Medical times Branch daily. SERTraline 2018-0 Yes 100mg Take 100 Un kizzy 100 mg 9-26 mg by ity of tablet 00:00: mouth (two) Medical times Branch daily. SERTraline 2018-0 Yes 100mg Take 100 Un kizzy 100 mg 9-26 mg by ity of tablet 00:00: mouth 2 [place] 00 (two) Medical times Branch daily. SERTraline 2018-0 Yes 100mg Take 100 Un kizzy 100 mg 9-26 mg by ity of tablet 00:00: mouth 2 [place] 00 (two) Medical times Branch daily. Immunizations Ordered Filled Immunization Date Status Comments [facility] e Immunization Name Name SARS-COV-2 COVID-19 2020-08-19 Completed Unive rsity of PFIZER VACCINE 00:00:00 [facility] SARS-COV-2 COVID-19 2020-08-19 Completed Unive rsity of PFIZER VACCINE 00:00:00 [facility] SARS-COV-2 COVID-19 2020-08-19 Completed Unive rsity of PFIZER VACCINE 00:00:00 [facility] SARS-COV-2 COVID-19 2020-08-19 Completed Unive rsity of PFIZER VACCINE 00:00:00 [facility] SARS-COV-2 COVID-19 2020-08-19 Completed Unive rsity of PFIZER VACCINE 00:00:00 [facility] SARS-COV-2 COVID-19 2020-08-19 Completed Unive rsity of PFIZER VACCINE 00:00:00 [facility] SARS-COV-2 COVID-19 2020-08-19 Completed Unive rsity of PFIZER VACCINE 00:00:00 [facility] SARS-COV-2 COVID-19 2020-08-19 Completed Unive rsity of PFIZER VACCINE 00:00:00 [facility] SARS-COV-2 COVID-19 2020-07-16 Completed Unive rsity of PFIZER VACCINE 00:00:00 [facility] SARS-COV-2 COVID-19 2020-07-16 Completed Unive rsity of PFIZER VACCINE 00:00:00 [facility] SARS-COV-2 COVID-19 2020-07-16 Completed Unive rsity of PFIZER VACCINE 00:00:00 [facility] SARS-COV-2 COVID-19 2020-07-16 Completed Unive rsity of PFIZER VACCINE 00:00:00 [facility] SARS-COV-2 COVID-19 2020-07-16 Completed Unive rsity of PFIZER VACCINE 00:00:00 [facility] SARS-COV-2 COVID-19 2020-07-16 Completed Unive rsity of PFIZER VACCINE 00:00:00 [facility] SARS-COV-2 COVID-19 2020-07-16 Completed Unive rsity of PFIZER VACCINE 00:00:00 [facility] SARS-COV-2 COVID-19 2020-07-16 Completed Unive rsity of PFIZER VACCINE 00:00:00 [facility] Influenza Virus 2018-03-24 Completed Universit y of Vaccine Quad IM 3+ 00:00:00 [facility] Pneumococcal 2018-03-24 Completed University o f Polysaccharide, 00:00:00 [place] Med ical PPSV23 (PNEUMOVAX) Branch Influenza Virus 2018-03-24 Completed Universit y of Vaccine Quad IM 3+ 00:00:00 [facility] Pneumococcal 2018-03-24 Completed University o f Polysaccharide, 00:00:00 [place] Med ical PPSV23 (PNEUMOVAX) Branch Influenza Virus 2018-03-24 Completed Universit y of Vaccine Quad IM 3+ 00:00:00 [facility] Pneumococcal 2018-03-24 Completed University o f Polysaccharide, 00:00:00 [place] Med ical PPSV23 (PNEUMOVAX) Branch Influenza Virus 2018-03-24 Completed Universit y of Vaccine Quad IM 3+ 00:00:00 [facility] Pneumococcal 2018-03-24 Completed University o f Polysaccharide, 00:00:00 [place] Med ical PPSV23 (PNEUMOVAX) Branch Influenza Virus 2018-03-24 Completed Universit y of Vaccine Quad IM 3+ 00:00:00 [facility] Pneumococcal 2018-03-24 Completed University o f Polysaccharide, 00:00:00 [place] Med ical PPSV23 (PNEUMOVAX) Branch Influenza Virus 2018-03-24 Completed Universit y of Vaccine Quad IM 3+ 00:00:00 [facility] Pneumococcal 2018-03-24 Completed University o f Polysaccharide, 00:00:00 [place] Med ical PPSV23 (PNEUMOVAX) Branch Influenza Virus 2018-03-24 Completed Universit y of Vaccine Quad IM 3+ 00:00:00 [facility] Pneumococcal 2018-03-24 Completed University o f Polysaccharide, 00:00:00 [place] Med ical PPSV23 (PNEUMOVAX) Branch Influenza Virus 2018-03-24 Completed Universit y of Vaccine Quad IM 3+ 00:00:00 [facility] Pneumococcal 2018-03-24 Completed University o f Polysaccharide, 00:00:00 [place] Med ical PPSV23 (PNEUMOVAX) Branch TDAP 2017-01-19 Completed University of 00:00:[address] [facility] 2017-01-19 Completed [facility] Completed [facility] 00[facility] 2017[facility] Completed University of 00:00:[address] [facility] 2017-01-19 Completed University of 00:00:[address] [facility] 2017-01-19 Completed University [facility] 00:00[facility] Completed University of 00:00:00 [facility] [place] [facility] Zoster(Zostavax)( 2016-05-27 Completed Unive rsity of ingles) 00:00:00 [facility] [place] [facility] Zoster(Zostavax)( 2016-05-27 Completed Unive rsity of ingles) 00:00:00 [facility] [place] [facility] Zoster(Zostavax)( 2016-05-27 Completed Unive rsity of ingles) 00:00:00 [facility] [place] [facility] Zoster(Zostavax)( 2016-05-27 Completed Unive rsity of ingles) 00:00:00 [facility] [place] [facility] Zoster(Zostavax)( 2016-05-27 Completed Unive rsity of ingles) 00:00:00 [facility] [place] [facility] Zoster(Zostavax)( 2016-05-27 Completed Unive rsity of ingles) 00:00:00 [facility] [place] [facility] Zoster(Zostavax)( 2016-05-27 Completed Unive rsity of ingles) 00:00:00 [facility] [place] [facility] Zoster(Zostavax)( 2016-05-27 Completed Unive rsity of ingles) 00:00:00 [facility] [place] [facility] Pneumococcal 2016-05-14 Completed University o f Polysaccharide, 00:00:00 [place] Med ical PPSV23 (PNEUMOVAX) Branch Pneumococcal 2016-05-14 Completed University o f Polysaccharide, 00:00:00 [place] Med ical PPSV23 (PNEUMOVAX) Branch Pneumococcal 2016-05-14 Completed University o f Polysaccharide, 00:00:00 [place] Med ical PPSV23 (PNEUMOVAX) Branch Pneumococcal 2016-05-14 [...] 2016-05-14 Completed University o f Polysaccharide, 00:00:00 [place] Med ical PPSV23 (PNEUMOVAX) Branch Vital Signs Vital Name Observation Time Observation Value Comments Source Systolic blood 2022-04-30 06:00:00 164 mm[Hg] Univer sity of pressure [facility] [place] [facility] Diastolic blood 2022-04-30 06:00:00 88 mm[Hg] Unive rsity of [facility] Heart rate 2022-04-30 06:00:00 72 /min [facility] Respiratory rate 2022-04-30 06:00:00 18 /min Univ [facility] Oxygen saturation in 2022-04-30 06:00:00 99 /min [place] of Arterial blood by [place] [employer] dave Pulse oximetry Branch Body temperature 2022-04-30 03:31:00 37.56 Chelle [facility] height 2022-04-30 03:31:00 172.7 cm [facility] Body weight 2022-04-30 03:31:00 99.791 kg [facility] BMI 2022-04-30 03:31:00 33.45 kg/m2 [facility] Oxygen saturation in 2021-10-15 21:13:00 97 /min [facility] Arterial blood by [place] [employer] [facility] Pulse oximetry Branch Systolic blood 2021-10-15 21:13:00 162 mm[Hg] Univer sity of [facility] Diastolic blood 2021-10-15 21:13:00 82 mm[Hg] Unive rsity of [facility] Heart rate 2021-10-15 21:13:00 88 /min [facility] Body temperature 2021-10-15 21:13:00 37.22 Chelle Univ ersity of [place] [facility] Respiratory rate 2021-10-15 21:13:00 19 /min Univ ersity of [place] [facility] Body height 2021-10-15 21:13:00 172.7 cm Universi ty of [place] [facility] Body weight 2021-10-15 21:13:00 90.719 kg Universi ty of [place] [facility] BMI 2021-10-15 21:13:00 30.41 kg/m2 Universi ty of [place] [facility] Systolic blood 2021-08-30 15:57:00 127 mm[Hg] Univer sity of pressure [place] [facility] Diastolic blood 2021-08-30 15:57:00 98 mm[Hg] Unive rsity of pressure [place] [facility] Heart rate 2021-08-30 15:57:00 73 /min Universi ty of [place] [facility] Respiratory rate 2021-08-30 15:57:00 18 /min Univ ersity of [place] [facility] Body weight 2021-08-30 15:57:00 99.791 kg Universi ty of [place] [facility] BMI 2021-08-30 15:57:00 33.45 kg/m2 Universi ty of [place] [facility] Oxygen saturation in 2021-08-30 15:57:00 98 /min University of Arterial blood by [employer] Pulse oximetry Branch Systolic blood 2021-06-24 14:15:00 165 mm[Hg] Univer sity of pressure [place] [facility] Diastolic blood 2021-06-24 14:15:00 82 mm[Hg] Unive rsity of pressure [place] [facility] Heart rate 2021-06-24 14:15:00 95 /min Universi ty of [place] [facility] Body temperature 2021-06-24 14:15:00 37.33 Chelle Univ ersity of [place] [facility] Respiratory rate 2021-06-24 14:15:00 20 /min Univ ersity of [place] [facility] Body weight 2021-06-24 14:15:00 99.791 kg Universi ty of [place] [facility] BMI 2021-06-24 14:15:00 33.45 kg/m2 Universi ty of [place] [facility] Oxygen saturation in 2021-06-24 14:15:00 98 /min University of Arterial blood by [employer] dave Pulse oximetry Branch Heart rate 2021-02-14 05:30:00 106 /min Universi ty of [place] [facility] Respiratory rate 2021-02-14 05:30:00 16 /min Univ ersity of [place] [facility] Systolic blood 2021-02-14 05:00:00 151 mm[Hg] Univer sity of pressure [place] [facility] Diastolic blood 2021-02-14 05:00:00 90 mm[Hg] Unive rsity of pressure [place] [facility] Oxygen saturation in 2021-02-14 05:00:00 97 /min University of Arterial blood by [facility] Pulse oximetry Branch Body temperature 2021-02-14 00:57:00 37.33 Chelle Univ ersity of [place] [facility] Body weight 2021-02-14 00:57:00 100.699 kg Universi ty of [place] [facility] BMI 2021-02-14 00:57:00 33.75 kg/m2 Universi ty of [place] [facility] Systolic blood 2021-02-13 11:30:00 164 mm[Hg] Univer sity of pressure [place] [facility] Diastolic blood 2021-02-13 11:30:00 85 mm[Hg] Unive rsity of pressure [place] [facility] Heart rate 2021-02-13 11:30:00 91 /min Universi ty of [place] [facility] Respiratory rate 2021-02-13 11:30:00 16 /min Univ ersity of [place] [facility] Oxygen saturation in 2021-02-13 11:30:00 96 /min University of Arterial blood by [facility] Pulse oximetry Branch Body temperature 2021-02-13 05:45:00 36.89 Chelle Univ ersity of [place] [facility] Systolic blood 2021-02-11 14:24:00 139 mm[Hg] Univer sity of pressure [place] [facility] Diastolic blood 2021-02-11 14:24:00 75 mm[Hg] Unive rsity of pressure [place] [facility] Heart rate 2021-02-11 14:19:00 83 /min Universi ty of [place] [facility] Body temperature 2021-02-11 14:19:00 36.83 Chel[place] Univ ersity of [place] [facility] Respiratory rate 2021-02-11 14:19:00 16 /min Univ ersity of [place] [facility] Body height 2021-02-11 14:19:00 172.7 cm [facility] Body weight 2021-02-11 14:19:00 101.016 kg [facility] BMI 2021-02-11 14:19:00 33.86 kg/m2 [facility] Oxygen saturation in 2021-02-11 14:19:00 97 /min University Arterial blood by [facility] Pulse oximetry Branch Procedures Procedure Date / Time Performing Clinician Source Performed EKG-12 LEAD 2022-04-30 06:27:15 [facility] TROPONIN I 2022-04-30 05:49:00 [facility] XR CHEST 1 VW 2022-04-30 04:16:00 Marilyn [facility] TROPONIN I 2022-04-30 04:00:00 Marilyn [facility] COMP. METABOLIC PANEL 2022-04-30 04:00:00 Kyle Vivas Un [facility] ([id number]) [facility] CBC WITH DIFF 2022-04-30 04:00:00 Kyle Vivas [facility] PROTHROMBIN TIME / INR 2022-04-30 04:00:00 Kyle Vivas [facility] N-TERMINAL PRO-BNP 2022-04-30 04:00:00 Kyle Vivas [facility] XR FINGERS 2 VW LEFT 2021-10-15 22:06:00 Edd Yeun [facility] NOTICE OF PRIVACY 2021-10-15 21:05:32 Doctor Unassigned, No [facility] PRACTICES Name [facility] CONSENT/REFUSAL FOR 2021-10-15 21:04:51 Doctor Unassigned, No [facility] DIAGNOSIS AND TREATMENT Name [facility] MAGNESIUM 2021-08-30 16:28:00 Nicolette Campbell [facility] COMP. METABOLIC PANEL 2021-08-30 16:28:00 Nicolette Campbell [facility] ([id number]) [facility] CBC WITH DIFF 2021-08-30 16:28:00 Nicolette Campbell [facility] URINALYSIS 2021-06-24 14:44:00 Ross, Jose [place] o f [facility] [place] [facility] CONSENT/REFUSAL FOR 2021-06-24 14:10:11 Doctor Unassigned, No Un [facility] DIAGNOSIS AND TREATMENT Name Medical Branch XR CHEST 1 VW 2021-02-14 03:23:19 Bertin Sanchez [facility] URINALYSIS 2021-02-14 02:54:00 Bertin Sanchez [facility] URINE DRUG (IMMUNOASSAY) 2021-02-14 02:54:00 Bertin Sanchez Un [facility] - COMPREHENSIVE DRUG Medical [facility] nch SCREEN W/O REFLEX TROPONIN I 2021-02-14 01:36:00 Bertin Sanchez [facility] COMP. METABOLIC PANEL 2021-02-14 01:36:[address] [facility] ([id number]) Medical Branch CBC WITH DIFF 2021-02-14 01:36:00 eBrtin Sanchez [facility] COVID-19 (ID NOW RAPID 2021-02-14 01:26:00 Bertin Sanchez [facility] TESTING) Medical Branch TROPONIN I 2021-02-13 10:56:00 Vishal Agarwal o f [facility] [place] [facility] CT CHEST PULMONARY 2021-02-13 10:28:40 Mallory Lopez [facility] ANGIOGRAM Medical Branch XR CHEST 1 VW 2021-02-13 06:37:29 Mallory Lopez [facility] TROPONIN I 2021-02-13 06:27:00 Mallory Lopez [facility] BASIC METABOLIC PANEL 2021-02-13 06:27:[address] [facility] (NA, K, CL, CO2, Medical Branch GLUCOSE, BUN, CREATININE, CA) CBC WITH DIFF 2021-02-13 06:27:00 Mallory Loepz [facility] D-DIMER 2021-02-13 06:27:00 Mallory Lopez [facility] N-TERMINAL PRO-BNP 2021-02-13 06:27:00 Mallory Lopez [facility] Plan of Care Planned Activity Planned Date Details Comments Source Future Scheduled 2022-04-22 65[facility] Test 16:30:41 VACCINE (3 - PCV) [code = 65+ PNEUMOCOCCAL VACCINE (3 - PCV)] Future Scheduled 2022-04-22 COVID-19 VACCINE (3 - Me [facility] [place] [facility] Test 16:30:41 Booster for Pfizer series) [code = COVID-19 VACCINE (3 - Booster for Pfizer series)] Future Scheduled 2022-04-22 INFLUENZA VACCINE [facility] Test 16:30:41 [code = INFLUENZA VACCINE] Future Scheduled 2022-04-22 Hepatitis C screening Me [facility] [place] Hospital Test 16:30:41 (procedure) [code = 116150385] Future Scheduled 2022-04-22 [facility] Test 16:30:41 SCREENING [code = BREAST CANCER SCREENING] Future Scheduled 2022-04-22 COLONOSCOPY SCREENING [facility] Test 16:30:41 [code = COLONOSCOPY SCREENING] Future Scheduled 2022-04-22 HEPATITIS B VACCINES Met [facility] Test 16:30:41 (1 of 3 - Risk 3-dose series) [code = HEPATITIS B VACCINES (1 of 3 - Risk 3-dose series)] Future Scheduled 2022-04-22 SHINGLES VACCINES (1 Met [facility] Hospital Test 16:30:41 of 2) [code = SHINGLES VACCINES (1 of 2)] Future Scheduled Hepatitis C screening Me [facility] [place] Hospital Test (procedure) [code = 611509573] Future Scheduled [facility] Test SCREENING [code = BREAST CANCER SCREENING] Future Scheduled COLONOSCOPY SCREENING [facility] [place] Hospital Test [code = COLONOSCOPY SCREENING] Future Scheduled SHINGLES [facility]ACCINES (#2[facility] [code = SHINGLES VACCINES (#2)] Future Scheduled INFLUENZA VACCINE Method [facility] Test [code = INFLUENZA VACCINE] Future Scheduled 65+ [facility]OCOCCAL [facility] Test VACCINE (2 of 2) [code = 65+ PNEUMOCOCCAL VACCINE (2 of 2)] Encounters Start End Encounter Admission Attending Care Care Encounter Source Date/Time Date/Time Type Type Clinicians Facility Department ID 2021-04-21 Emergency [facility] [id number] Univers 18:27:17 [facility] 2021-04-21 Emergency [facility] [id number] Univers 18:11:05 [facility] 2021-04-21 Emergency [facility] [id number] Univers 16:10:46 ity of [facility] [place] [facility] 2021-04-21 Emergency [facility] [id number] Univers 14:58:19 ity of [facility] [place] [facility] 2021-04-21 Emergency [facility] [id number] Univers 14:56:27 ity of [facility] [place] [facility] 2021-04-18 Emergency [facility] [id number] Univers 22:14:38 ity of [facility] [place] [facility] 2021-04-18 Emergency [facility] [id number] Univers 19:38:58 ity of [facility] [place] [facility] 2022-05-05 2022-05-06 IHC Follow Philipp Liriano [id number]. 2.16.840.1. [id number] [facility] 23:00:00 00:00:00 Up [id number]. [id number]. [facility] [id number] 2022-04-29 2022-04-30 Emergency X RIDDLE, [facility] ERT [id number] Univers 21:27:00 00:37:00 KYLE it y of [facility] [place] [facility] 2022-04-29 2022-04-30 Emergency Sebastian, [facility] [id number] Univers 21:27:00 00:37:00 Kyle NOGUEIRA [id number] [facility] [id number] [facility] [id number] [place] [address] Branch 2022-04-20 2022-04-20 IHC Follow Philipp Liriano 2.16.840. 2.16.840.1. [id number] [facility] 18:30:00 19:00:00 Up [id number]. [id number]. [facility] [id number] 2022-03-17 2022-03-17 IHC Follow Philipp Liriano 2.16.840. 2.16.840.1. [id number] [facility] 18:00:00 18:30:00 Up [id number]. [id number] [facility] [id number] 2022-02-19 2022-02-19 IHC Follow Philipp Liriano 2.16.840. 2.16.840.1. [id number] [facility] 15:00:00 16:00:00 Up 1.177388. [id number]. [facility] [id number] 2022-01-07 2022-01-07 IHC Philipp Liriano 2.16.840. 2.16.840.1. CLA [id number] [facility] 19:00:00 20:00:00 Initial [id number]. [id number] [id number] Medical [id number] 2022-01-02 2022-01-02 Outpatient [id number] [facility] [id number] [facility] 03:44:00 03:44:00 0715 Medica l Group 2021-12-10 2021-12-10 Outpatient hpham29 [facility] 68825-3 022 Devoted 07:06:00 07:06:00 0622 Medica l Group 2021-12-08 2021-12-08 Care Bess 2.16.840. 2.16.840.1. CLAC XSYY5E Devoted 18:00:00 18:30:00 [employer] Walt 1.961290. 444131.4.6. CYU Medical 4.6.59494 [id number] 89629 2021-10-26 2021-10-26 Care Nishea 2.16.840. 2.16.840.1. CLAC [id number] Devoted 17:00:00 17:30:00 [employer] Euceda 1.331611. 928973.4.6. 2AA Medical 4.6.25435 [id number] 65975 2021-10-25 2021-10-25 Care Nishea 2.16.840. 2.16.840.1. CLAC [id number] Devoted 18:30:00 19:00:00 [employer] [place] 1.626691. 246505.4.6. CR2 Medical 4.6.92976 [id number] 2021-10-15 2021-10-15 Emergency X Edd YUEN [facility] ERT [id number] Univers 16:13:00 18:21:00 ity [facility] 2021-10-15 2021-10-15 Emergency Edd Yuen [facility] 1.2.840.114 [id number] Univers 16:13:00 18:21:00 Luna JERO 350.1.13.10 i ty of [place] 4.2.7.2.686 [facility] [id number] [address] 2021-10-03 2021-10-03 Outpatient R ERIN, [facility] [id number] Univers 18:45:00 18:45:00 JUANITA iraheta o f [facility] 2021-08-31 2021-08-31 Care Fatuma 2.16.840. 2.16.840.1. [facility] [id number] Devoted 19:00:00 19:30:00 Amor Jackson 1.497616. 462040.4.6. [facility] Medical 4.6.24957 [id number] 2021-08-30 2021-08-30 Emergency J[facility] ERT [id number] Univers 09:58:00 11:52:00 NICOLETTE [facility] 2021-08-30 2021-08-30 Emergency [facility] 1.2.739.161 [id number] 7299 Univers 09:58:00 11:52:00 Nicolette Jordan JERO 350.1.13.10 i ty of [place] 4.2.7.2.686 [facility] [id number] [address] 2021-06-24 2021-06-24 Emergency Jaya [facility] ERT [id number] Univers 08:18:00 10:03:00 JOSE ity [facility] 2021-06-24 2021-06-24 Emergency [facility] 1.2.801.834 [id number] [id number] Univers 08:18:00 10:03:00 Jose ONGUEIRA 350.1.13.10 i ty of [place] 4.2.7.2.686 [facility] [phone] [facility] [address] 2021-06-18 2021-06-18 Outpatient Kautz_S DMG DMG 48008-8 021 Devoted 06:07:00 06:07:00 1229 Medica l Group 2021-02-21 2021-02-21 Emergency ER BENY Angeles STASHLIE [id number] 09:55:00 09:55:00 Jesse -[id number] Luke s Jesse spencer 2021-02-13 2021-02-14 Emergency Bertin Sanchez [facility] 1.2.840 .114 [id number] Univers 19:53:00 00:56:00 Nicolette Campbell 350.1.13.10 ity of [place] 4.2.7.2.686 [facility] [id number] [place] [address] Branch 2021-02-13 2021-02-13 Emergency [facility] 1.2.206.054 [id number] Univers 00:40:00 07:13:00 Mallory Nogueira 350.1.13.10 ity of [place] 4.2.7.2.686 [facility] [id number] [place] 502994 Branch 2021-02-12 2021-02-12 Letter KAROLYN Tyler 1.2.840.114 [id number] Univers 00:00:00 00:00:00 (Out) Janice BOWSER 350.1.13.10 it y of [facility] 4.2.7.2.686 Braulio as [id number] [facility] 019 Branch 2021-02-11 2021-02-11 Urgent [facility] 1.2.840.114 [id number] Univers 09:06:50 09:26:50 Care [facility] 350.1.13.10 it y of [place] 4.2.7.2.686 Braulio as Kyrie?Blea [id number] Ok melchor saeztj [address] [place] [address] Medical Office Building 2021-02-11 2021-02-11 Outpatient R [facility] [id number] Univers 09:00:00 09:00:00 ity of [facility] 2021-02-07 2021-02-07 Outpatient R UNKNOWN, [facility] [id number] Univers 14:20:00 14:20:00 ATTENDING ity of [facility] 2021-02-03 2021-02-03 Outpatient OWENS_T DMG [facility] 15222-2 021 Devoted 08:30:00 08:30:00 0816 Medica l Group 2021-01-30 2021-01-30 Emergency [facility] 1.2.964.011 [id number] 06:55:00 10:29:00 Vishal Nogueira 350.1.13.10 [place] 4.2.7.2.686 [place] [id number] 084 2021-01-29 2021-01-30 [facility] 1.2.471.594 4855 1421 21:35:00 01:50:00 Liana Nogueira 350.1.13.10 [place] 4.2.7.2.686 [place] [id number] 084 2021-01-03 2021-01-03 Outpatient OWENS_T [facility] 96806-6 021 Devoted 05:35:00 05:35:00 0716 Medica l Group 2020-11-20 2020-11-20 Outpatient [facility] 21977-2 021 Devoted 11:00:00 11:00:00 0602 Medica l Group 2020-11-18 2020-11-18 [facility] 1.2.840.114 [id number] 00:00:00 00:00:00 Jerzy Nogueira 350.1.13.10 [place] 4.2.7.2.[id number] nal [address] [facility] 2020-11-14 2020-11-14 [facility] 1.2.840.114 [id number] 00:00:00 00:00:00 Ramon Nogueira 350.1.13.10 [place] 4.2.7.2.[id number] nal [address] [facility] 2020-10-16 2020-10-16 [facility] 1.2.840.114 [id number] 13 00:00:00 00:00:00 Jerzy Nogueira 350.1.13.10 [place] 4.2.7.2.686 [facility] [id number] nal 085 Building 2020-10-01 2020-10-01 Treatment Cr Roy 1.2.840.1 [id number] Methodi 15:27:18 16:08:[address] 3.430.2.7 Hospit a .3.961349 l .8 2020-10-01 2020-10-01 Travel 1.2.840.1 1.2.279.815 9962 836686 Methodi 00:00:00 00:00:[address] 3.430.2.7 0.2.7.3.698 Ho spita .3.220749 084.8 l .8 2020-09-19 2020-09-19 Treatment Cr Roy 1.2.840.1 [id number] [id number] Methodi 14:47:22 16:15:[address] 3.430.2.7 Hospit a .3.418845 l .8 2020-09-19 2020-09-19 Travel 1.2.840.1 1.2.701.498 1631 [id number] Methodi 00:00:00 00:00:[address] 3.430.2.7 0.2.7.3.698 Ho spita .3.991191 084.8 l .8 2020-09-17 2020-09-17 Documentat Dylan 1.2.840.1 [id number] 2 [id number] Methodi 00:00:00 00:00:[address]03[address]1.[address] 3.430.2.7 Hospit a .3.192236 l .8 2020-09-04 2020-09-04 Treatment Cr Roy 1.2.840.1 [id number] Methodi 15:21:22 16:38:[address] 3.430.2.7 Hospit a .3.231383 l .8 2020-09-04 2020-09-04 Plan of 1.2.840.1 [id number] 5105 Methodi 00:00:00 00:00:[address] Documentat 3.430.2.7 Hos marian ion .3.762467 l .8 2020-09-04 2020-09-04 Travel 1.2.840.1 1.2.407.452 0318 563072 Methodi 00:00:00 00:00:[address] 3.430.2.7 0.2.7.3.698 Ho spita .3.617432 084.8 l .8 2020-08-28 2020-08-28 Treatment Roy, Cr 1.2.840.1 [id number] [id number] Methodi 13:52:33 16:45:[address] 3.430.2.7 Hospit a .3.048785 l .8 2020-08-28 2020-08-28 Travel 1.2.840.1 1.2.188.471 6796 [id number] Methodi 00:00:00 00:00:[address] 3.430.2.7 0.2.7.3.698 Ho spita .3.862414 084.8 l .8 2020-08-28 2020-08-28 Plan of 1.2.840.1 [id number] 352987 1962 Methodi 00:00:00 00:00:[address] Documentat 3.430.2.7 Hos marian ion .3.569884 l .8 2020-08-20 2020-08-20 Outpatient Harvey SOFIA [facility] [id number] Univers 10:00:00 10:00:00 RAMON iraheta [facility] 2020-08-20 2020-08-20 Travel 1.2.840.1 1.2.539.547 1285 [id number] Methodi 00:00:00 00:00:[address] 3.430.2.7 0.2.7.3.698 Ho spita .3.010062 084.8 l .8 2020-08-19 2020-08-19 [facility] 95243 [id number] Univers 14:00:00 14:00:00 [facility] 2020-08-13 2020-08-13 Travel 1.2.840.1 1.2.773.314 4453 170840 Methodi 00:00:00 00:00:[address] 3.430.2.7 0.2.7.3.698 Ho spita .3.777229 084.8 l .8 2020-08-06 2020-08-06 Outpatient [facility] [id number] 02589 Univers 11:50:00 11:50:00 [facility] 2020-07-30 2020-07-30 Travel 1.2.840.1 1.2.877.498 5993 457190 Methodi 00:00:00 00:00:[address] 3.430.2.7 0.2.7.3.698 Ho spita .3.482849 084.8 l .8 2020-07-22 2020-07-22 Transcribe Roy, 1.2.840.1 [id number] Methodi 00:00:00 00:00:[place] [address] 3.430.2.7 Hospit a .3.980440 l .8 2020-07-16 2020-07-16 Outpatient Harvey KIM [facility] 78905 71427 Univers 11:00:00 11:00:00 [facility] 2020-06-27 2020-06-27 Outpatient JERZY COSME [facility] 10 [id number] Univers 14:20:00 14:20:00 JERZY RANGEL i ty [facility] 2020-06-17 2020-06-17 Urgent Erin, [facility] 1.2.840.114 [id number] 18:48:25 19:08:25 Care [facility] 350.1.13.10 [place] 4.2.7.2.686 Profess [id number] nal 044 Office [address] One 2020-06-17 2020-06-17 [facility] [id number] Univers 19:00:00 19:00:00 GARY ity [facility] 2020-05-27 2020-05-27 Urgent [facility] 1.2.840.114 [id number] 33 16:58:39 17:55:24 Care [facility] 350.1.13.10 [place] 4.2.7.2.686 [facility] [id number] nal 044 Office [address] One 2020-05-27 2020-05-27 Outpatient R NATHEN [facility] [id number] Univers 17:00:00 17:00:00 GARY ity [facility] 2020-03-04 2020-03-04 Outpatient R ANGELINA SAEZ [facility] [id number] Univers 11:15:00 11:15:00 ity of [facility] 2020-02-22 2020-02-22 Outpatient R ANGELINA SAEZ [facility] 181 [id number] Univers 14:00:00 14:00:00 ity of [facility] 2020-02-21 2020-02-21 Outpatient R [facility] [id number] Univers 15:00:00 15:00:00 ity of [facility] 2020-02-21 2020-02-21 Outpatient R [facility] [id number] Univers 10:00:00 10:00:00 ity of [facility] 2020-02-16 2020-02-16 Outpatient R ANGELINA SAEZ [facility] 243 [id number] Univers 08:15:00 08:15:00 ity of [facility] 2020-02-15 2020-02-15 Outpatient R BISMARK [facility] [id number] Univers 09:00:00 09:00:00 SENDIL ity [facility] 2020-02-09 2020-02-09 Outpatient R JERZY RANGEL [facility] 10 [id number] Univers 14:40:00 14:40:00 JERZY RANGEL i ty of [facility] 2020-01-25 2020-01-25 Outpatient R JERZY RANGEL [facility] 10 [id number] Univers 13:00:00 13:00:00 JERZY RANGEL i ty of [facility] 2020-01-05 2020-01-05 Outpatient R JERZY RANGEL [facility] 10 [id number] Univers 11:40:00 11:40:00 JERZY RANGEL i ty of [facility] 2019-11-08 2019-11-08 Outpatient R [facility] [id number] Univers 10:20:00 10:20:00 ity [facility] 2019-10-05 2019-10-05 Outpatient R JERZY RANGEL [facility] 10 [id number] Univers 11:40:00 11:40:00 JERZY RANGEL i [facility] Results Test Description Test Time Test Comments Results Result Comments Source TROPONIN I 2022-04-30 06:24:06 Test Item Value Reference Range Interpretation Comme nts TROPONIN I (test code = 0.002 ng/mL See_Comment [Au tomated message] The [id number]) system which ge nerated this result tra nsmitted reference range : <=0.034. The reference r elba was not used to int erpret this result as normal/abnormal . AMALIA (test code = AMALIA) Reference (Normal) Range (defined by the 99th percentile reference limit): <= 0.034 ng/mL Note: Cardiac troponin begins to rise 3-4 hours after the onset of ischemia. Repeat in 4-6 hours if the sample was drawn within 3-4 hours of the onset of the symptom and found normal. Diagnosis of myocardial injury is made with acute changes in cTn concentrations with at least one serial sample above the 99th percentile upper reference limit (URL), taken together with the patient's clinical presentation. Biotin has been reported to cause a negative bias, interpret results relative to patient's use of biotin. Lab Interpretation Normal (test code = 31301-0) [facility] [id number] 04:32:17 Test Item Value Reference Interpretation Comments Range TROPONIN I (test 0.002 ng/mL See_Comment [Automated code = 3749584563) message] The system which generated this result transmitted reference range : <=0.034. The reference range was not used to interpret this result as normal/abnormal . AMALIA (test code = Reference (Normal) AMALIA) Range (defined by the 99th percentile reference limit): <= 0.034 ng/mL Note: Cardiac troponin begins to rise 3-4 hours after the onset of ischemia. Repeat in 4-6 hours if the sample was drawn within 3-4 hours of the onset of the symptom and found normal. Diagnosis of myocardial injury is made with acute changes in cTn concentrations with at least one serial sample above the 99th percentile upper reference limit (URL), taken together with the patient's clinical presentation. Biotin has been reported to cause a negative bias, interpret results relative to patient's use of biotin. Lab Interpretation Normal (test code = 80278-9) [facility] [id number] 04:29:16 Test Item Value Reference Range Interpretation Comments NT-proBNP (test code 74 pg/mL See_Comment [Autom ated = 8023735199) message] The system which generated this result transmitted reference range : <=125. The reference range was not used to interpret this result as normal/abnormal . AMALIA (test code = AMALIA) Biotin has been reported to cause a negative bias, interpret results relative to patient's use of biotin. Lab Interpretation Normal (test code = 00542-5) [facility]OLIC PAN[facility] (14868)2022-04-30 04:20:56 Test Item Value Reference Range Interpretation Comments NA (test code = 139 mmol/L 135-145 3984904506) K (test code = 4.2 mmol/L 3.5-5.0 8742931256) CL (test code = 105 mmol/L 98-108 8073587356) CO2 TOTAL (test code = 26 mmol/L 23-31 0055798554) AGAP (test code = 2-16 8168006247) BUN (test code = 17 mg/dL 7-23 1144979734) GLUCOSE (test code = 111 mg/dL 70-110 H 1275173712) CREATININE (test code = 0.99 mg/dL 0.50-1.04 3350264240) TOTAL BILI (test code = 0.3 mg/dL 0.1-1.0 5457789310) CALCIUM (test code = 10.1 mg/dL 8.6-10.6 7096591482) T PROTEIN (test code = 6.8 g/dL 6.3-8.2 5671135450) ALBUMIN (test code = 4.4 g/dL 3.5-5.0 7873090008) ALK PHOS (test code = 72 U/L 34-122 7665434794) ALTv (test code = 17 U/L 5-35 1742-6) AST(SGOT) (test code = 20 U/L 13-40 7666665078) eGFR (test code = mL/min/1.73m2 9675156666) AMALIA (test code = AMALIA) Association of [...] tests). Lab Interpretation Abnormal (test code = 34385-2) [facility] / [id number] 04:16:14 Test Item Value Reference Range Interpretation Comments PROTIME PATIENT (test See_Comment [Auto mated message] code = 5964-2) The system wh ich generated this result transmitted ref erence range: 12.0 - 1 4.7 Seconds. The re ference range was not u sed to interpret this result as normal/abnor mal. INR (test code = 6301-6) Nor mal INR <1.1; Warfarin Therap eutic range 2.0 to 3. 0 or 2.5 to 3.5, dep ending upon the indica tions. Lab Interpretation (test Normal code = 92915-0) [facility] WITH [id number] 04:15:13 Test Item Value Reference Range Interpretation Comments WBC (test code = See_Comment [Automated 6190-2) message] The sy stem which generated this result transmitted reference range : 4.30 - 11.10 10*3/?L. The reference range was not used to interpret this result as normal/abnormal . RBC (test code = See_Comment L [Automated 789-8) message] The sy stem which generated this result transmitted reference range : 3.93 - 5.25 10*6/?L. The reference range was not used to interpret this result as normal/abnormal . HGB (test code = 11.2 g/dL 11.6-15.0 L 718-7) HCT (test code = 33.2 % 35.7-45.2 L 4544-3) MCV (test code = 86.5 fL 80.6-95.5 787-2) MCH (test code = 29.2 pg 25.9-32.8 785-6) MCHC (test code = 33.7 g/dL 31.6-35.1 786-4) RDW-SD (test code = 41.3 fL 39.0-49.9 28628-8) RDW-CV (test code = 13.1 % 12.0-15.5 788-0) PLT (test code = See_Comment [Automated 777-3) message] The sy stem which generated this result transmitted reference range : 166 - 358 10*3/ ?L. The reference r elba was not used to interpret this result as normal/abnormal . MPV (test code = 10.9 fL 9.5-12.9 88910-6) NRBC/100 WBC (test See_Comment [Automat ed code = 4176944554) message] The system which generated this result transmitted reference range : 0.0 - 10.0 /100 WBCs. The refer ence range was not u sed to interpret th is result as normal/abnormal . NRBC x10^3 (test code See_Comment [Auto mated = 0211378132) message] The s ystem which generated this result transmitted reference range : 10*3/?L. The reference range was not used to interpret this result as normal/abnormal . GRAN MAT (NEUT) % 57.0 % (test code = 770-8) IMM GRAN % (test code 0.40 % = 6149014559) LYMPH % (test code = 30.2 % 736-9) MONO % (test code = 9.5 % 5905-5) EOS % (test code = 2.3 % 713-8) BASO % (test code = 0.6 % 706-2) GRAN MAT x10^3(ANC) 4.79 10*3/uL 1.88-7.09 (test code = 7544498622) IMM GRAN x10^3 (test 0.03 10*3/uL 0.00-0.06 code = 6097987722) LYMPH x10^3 (test code 2.54 10*3/uL 1.32-3.29 = 731-0) MONO x10^3 (test code 0.80 10*3/uL 0.33-0.92 = 742-7) EOS x10^3 (test code = 0.19 10*3/uL 0.03-0.39 711-2) BASO x10^3 (test code 0.05 10*3/uL 0.01-0.07 = 704-7) Lab Interpretation Abnormal (test code = 31986-4) [facility] 16:46:40 Test Item Value Reference Range Interpretation Comments MAGNESIUM (test code = 6940570630) 1.9 mg/dL 1.7-2.4 Lab Interpretation (test code = Normal 74385-4) [facility] (53244)2021-08-30 16:46:20 Test Item Value Reference Range Interpretation Comments NA (test code = 141 mmol/L 135-145 3323944030) K (test code = 4.4 mmol/L 3.5-5.0 9105036253) CL (test code = 107 mmol/L 98-108 4846579999) CO2 TOTAL (test code = 23 mmol/L 23-31 0429059210) AGAP (test code = 2-16 3354495888) BUN (test code = 17 mg/dL 7-23 6597503823) GLUCOSE (test code = 114 mg/dL 70-110 H 7258277954) CREATININE (test code = 1.06 mg/dL 0.50-1.04 H 7857434456) TOTAL BILI (test code = 0.6 mg/dL 0.1-1.5 8464226442) CALCIUM (test code = 9.9 mg/dL 8.6-10.6 4637153628) T PROTEIN (test code = 6.7 g/dL 6.3-8.2 5187373172) ALBUMIN (test code = 4.3 g/dL 3.5-5.0 8608977047) ALK PHOS (test code = 81 U/L 34-122 1324553121) ALTv (test code = 21 U/L 5-35 1742-6) AST(SGOT) (test code = 26 U/L 13-40 8231978268) eGFR (test code = mL/min/1.73m2 0092281127) AMALIA (test code = AMALIA) Association of [...] tests). Lab Interpretation Abnormal (test code = 30265-1) [facility] WITH [id number] 16:45:39 Test Item Value Reference Range Interpretation Comments WBC (test code = See_Comment [Automated 9590-2) message] The sy stem which generated this result transmitted reference range : 4.30 - 11.10 10*3/?L. The reference range was not used to interpret this result as normal/abnormal . RBC (test code = See_Comment [Automated 099-8) message] The sy stem which generated this [...] RDW-SD (test code = 44.4 fL 39.0-49.9 82140-2) RDW-CV (test code = 14.0 % 12.0-15.5 788-0) PLT (test code = See_Comment [Automated 817-3) message] The sy stem which generated this result transmitted reference range : 166 - 358 10*3/ ?L. The reference r elba was not used to interpret this result as normal/abnormal . MPV (test code = 10.7 fL 9.5-12.9 18315-2) NRBC/100 WBC (test See_Comment [Automat ed code = 3787998596) message] The system which generated this result transmitted reference range : 0.0 - 10.0 /100 WBCs. The refer ence range was not u sed to interpret th is result as normal/abnormal . NRBC x10^3 (test code <0.01 See_Comment [Auto mated = 1660924047) message] The s ystem which generated this result transmitted reference range : 10*3/?L. The reference range was not used to interpret this result as normal/abnormal . GRAN MAT (NEUT) % 54.5 % (test code = 770-8) IMM GRAN % (test code 0.50 % = 6542292000) LYMPH % (test code = 28.7 % 736-9) MONO % (test code = 11.3 % 5905-5) EOS % (test code = 4.1 % 713-8) BASO % (test code = 0.9 % 706-2) GRAN MAT x10^3(ANC) 2.41 10*3/uL 1.88-7.09 (test code = 9229201009) IMM GRAN x10^3 (test <0.03 0.00-0.06 code = 6921832933) LYMPH x10^3 (test code 1.27 10*3/uL 1.32-3.29 L = 731-0) MONO x10^3 (test code 0.50 10*3/uL 0.33-0.92 = 742-7) EOS x10^3 (test code = 0.18 10*3/uL 0.03-0.39 711-2) BASO x10^3 (test code 0.04 10*3/uL 0.01-0.07 = 704-7) Lab Interpretation Abnormal (test code = 27637-3) [facility] 11:14:00 Test Item Value Reference Range Interpretation Comments Chemistry (test 0.013 ng/mL < 0.028 code = TROPI-R) Reference Ra nge 0.00 - 0.028 ng /mL Negative 0.029 - 0.29 ng/mL Indetermi sabino Greater or Equa l to 0.3 ng/mL Strongly suggests MT Chemistry - BNP, HgbA1c, [id number] 11:14:00 Test Item Value Reference Range Interpretation Comments Chemistry - BNP, HgbA1c, PTHi 14.3 pg/mL 0-100 N (test code = BNP) [id number] 11:12:00 Test Item Value Reference Range Interpretation [...] ce Range for = EGFRMDRD) Estimated GFR: Greater than 90 mL/min/ 1.73 m2NOTE:The MDRD equation has no t been validated for u se with theelderly (ove r 70 years of age), women, patients with serious comorbi d condition or pe rsons with extremes o fbody size, muscle ma ss, or nutritional sta tus. Chemistry (test code 161 mg/dL 80-115 H [...] code 21 U/L 8-55 N = ALT) [id number] 10:55:00 Test Item Value Reference Range Interpretation [...] DRUG (IMMUNOASSAY) - COMPREHENSIVE DRUG SCREEN W/O [id number] 03:45:17 Test Item Value Reference Range Interpretation Comments AMPHET (test code = 4896106963) Negative Negative SALOMÓN U (test code = 6688672844) Negative Negative BENZO U (test code = 1322263272) Negative Negative Cocaine Metabolite (test code = Negative Negative 0587952367) METHADONE (test code = 3539164542) Negative Negative OPIATES (test code = 4623175513) Negative Negative PCP (test code = 0068218431) Negative Negative THC (test code = 3683134877) Negative Negative AMALIA (test code = AMALIA) Lab Interpretation (test code = Normal 14482-9) [facility] 03:28:39 Test Item Value Reference Range Interpretation Comments APPEARANCE (test code = Clear Clear 8023439555) COLOR (test code = Yellow Yellow 1586702042) PH (test code = 4.8-8.0 0467685625) SP GRAVITY (test code = 1.003-1.030 0101057037) GLU U QUAL (test code = Normal Normal 5644853954) BLOOD (test code = Negative Negative 5670139563) KETONES (test code = Negative Negative 6584567160) PROTEIN (test code = Negative Negative 2887-8) UROBILIN (test code = Normal Normal 7638805363) BILIRUBIN (test code = Negative Negative 4868782794) NITRITE (test code = Negative Negative 9251916091) LEUK GLENNA (test code = 75/uL Negative A 0177450097) RBC/HPF (test code = See_Comment H [Autom ated message] 2672552628) The system [employer] generated this result transmitted ref erence range: 0 - 3 HP F. The reference range was not used to int erpret this result as normal/abnormal . WBC/HPF (test code = See_Comment H [Autom ated message] 1024251310) The system [employer] generated this result transmitted ref erence range: 0 - 5 HP F. The reference range was not used to int erpret this result as normal/abnormal . BACTERIA (test code = Negative Negative 1937517167) SQ EPITH (test code = <1 HPF 7665672993) Lab Interpretation (test Abnormal code = 47850-1) [facility] WITH KQCH8080-25-07 02:33:37 Test Item Value Reference Range Interpretation [...] RDW-SD (test code = 46.1 fL 39.0-49.9 50959-7) RDW-CV (test code = 15.0 % 12.0-15.5 788-0) PLT (test code = See_Comment [Automated 777-3) message] The system which generated this result transmit [place] reference range : 166 - 358 10*3/ ?L. The reference range was not u sed to interpret th is result as normal/abnormal . MPV (test code = 10.4 fL 9.5-12.9 01510-1) NRBC/100 WBC (test See_Comment [Automat ed code = 7601282128) message] The system which generated this result transmit [place] reference range : 0.0 - 10.0 /100 WBCs. The reference range was not used to interpret this result as normal/abnormal . NRBC x10^3 (test code <0.01 See_Comment [Auto mated = [id number]) message] The system which generated this result transmit [place] reference range : 10*3/?L. The reference range was not used to interpret this result as normal/abnormal . GRAN MAT (NEUT) % 89.8 % (test code = 770-8) IMM GRAN % (test code 2.30 % = 0754232814) LYMPH % (test code = 3.5 % 736-9) MONO % (test code = 4.2 % 5905-5) EOS % (test code = 0.0 % 713-8) BASO % (test code = 0.2 % 706-2) GRAN MAT x10^3(ANC) 16.54 10*3/uL 1.88-7.09 H (test code = 8727346611) IMM GRAN x10^3 (test 0.42 10*3/uL 0.00-0.06 H code = 2765117592) LYMPH x10^3 (test code 0.64 10*3/uL 1.32-3.29 L = 731-0) MONO x10^3 (test code 0.77 10*3/uL 0.33-0.92 = 742-7) EOS x10^3 (test code = <0.03 0.03-0.39 L 711-2) BASO x10^3 (test code 0.04 10*3/uL 0.01-0.07 = 704-7) Lab Interpretation Abnormal (test code = 21802-8) [id number] Test Item Value Reference Range Interpretation Comments TROPONIN I (test code = 0.020 ng/mL See_Comment [Au tomated 5885488059) message] The sy stem which generated this result transmitted reference range : <=0.034. The reference range was not used to interpret this result as normal/abnormal . AMALIA (test code = AMALIA) Lab Interpretation Normal (test code = 42127-2) [facility]32[facility]2021-02-14 01:58:53 Test Item Value Reference Range Interpretation Comments NA (test code = 0427869618) 137 mmol/L 135-145 K (test code = 5344538630) 4.4 mmol/L 3.5-5.0 CL (test code = 3128069107) 102 mmol/L 98-108 CO2 TOTAL (test code = 6383785226) 25 mmol/L 23-31 AGAP (test code = 2635915193) 2-16 BUN (test code = 2780045688) 22 mg/dL 7-23 GLUCOSE (test code = 7912946918) 149 mg/dL 70-110 H CREATININE (test code = 0.89 mg/dL 0.50-1.04 4609064714) TOTAL BILI (test code = 0.5 mg/dL 0.1-1.2 7248610722) CALCIUM (test code = 9345351479) 10.6 mg/dL 8.6-10.6 T PROTEIN (test code = 1494420635) 7.6 g/dL 6.3-8.2 ALBUMIN (test code = 8642285354) 4.5 g/dL 3.5-5.0 ALK PHOS (test code = 6764634842) 101 U/L 34-122 ALTv (test code = 1742-6) 25 U/L 5-35 AST(SGOT) (test code = 1868837831) 29 U/L 13-40 eGFR (test code = 0139940126) mL/min/1.73m2 AMALIA (test code = AMALIA) Lab Interpretation (test code = Abnormal 25640-9) [facility] NOW RAPID TESTING)2021-02-14 01:57:53 Test Item Value Reference Range Interpretation Comments SARS-CoV-2 Rapid ID NOW (test Not Detected Not Detected code = 30189-6) AMALIA (test code = AMALIA) Lab Interpretation (test code = Normal 02019-3) [facility] [id number] 11:27:57 Test Item Value Reference Range Interpretation Comments TROPONIN I (test code = <0.012 See_Comment [Au tomated message] 2669645730) The system [employer]ook[employer] h generated this result transmitted ref erence range: <=0.034 ng/mL. The reference r elba was not used to interpret this result as normal/abnor mal. AMALIA (test code = AMALIA) Lab Interpretation (test Normal code = 72098-4) [facility] WITH [id number] 07:32:39 Test Item Value Reference Range Interpretation [...] RDW-SD (test code = 47.0 fL 39.0-49.9 41415-3) RDW-CV (test code = 14.9 % 12.0-15.5 788-0) PLT (test code = See_Comment [Automated 777-3) message] The sy stem which generated this result transmitted reference range : 166 - 358 10*3/ ?L. The reference r elba was not used to interpret this result as normal/abnormal . MPV (test code = 10.4 fL 9.5-12.9 83825-3) NRBC/100 WBC (test See_Comment [Automat ed code = 1403245824) message] The system which generated this result transmitted reference range : 0.0 - 10.0 /100 WBCs. The refer ence range was not u sed to interpret th is result as normal/abnormal . NRBC x10^3 (test code <0.01 See_Comment [Auto mated = 6039299499) message] The s ystem which generated this result transmitted reference range : 10*3/?L. The reference range was not used to interpret this result as normal/abnormal . GRAN MAT (NEUT) % 72.7 % (test code = 770-8) IMM GRAN % (test code 4.50 % = 4574787370) LYMPH % (test code = 13.6 % 736-9) MONO % (test code = 7.0 % 5905-5) EOS % (test code = 1.8 % 713-8) BASO % (test code = 0.4 % 706-2) GRAN MAT x10^3(ANC) 7.99 10*3/uL 1.88-7.09 H (test code = 0133518549) IMM GRAN x10^3 (test 0.50 10*3/uL 0.00-0.06 H code = 9701284671) LYMPH x10^3 (test code 1.50 10*3/uL 1.32-3.29 = 731-0) MONO x10^3 (test code 0.77 10*3/uL 0.33-0.92 = 742-7) EOS x10^3 (test code = 0.20 10*3/uL 0.03-0.39 711-2) BASO x10^3 (test code 0.04 10*3/uL 0.01-0.07 = 704-7) Lab Interpretation Abnormal (test code = 28400-8) [facility] [id number] 07:10:47 Test Item Value Reference Range Interpretation Comments TROPONIN I (test code = <0.012 See_Comment [Au tomated message] 1163951263) The system [employer] generated this result transmitted ref erence range: <=0.034 ng/mL. The reference r elba was not used to interpret this result as normal/abnor mal. AMALIA (test code = AMALIA) Lab Interpretation (test Normal code = 82852-5) [facility]MINAL [id number] 07:07:26 Test Item Value Reference Range Interpretation Comments NT-proBNP (test code = 87 pg/mL See_Comment [Aut omated message] 8174178627) The system [employer] generated this result transmitted ref erence range: <=125. T he reference range was not used to int erpret this result as normal/abnormal . AMALIA (test code = AMALIA) Lab Interpretation (test Normal code = 58281-0) [facility]-[id number] 06:59:27 Test Item Value Reference Range Interpretation Comments D-DIMER (test code = See_Comment H [Autom ated message] 3451076741) The system [employer] generated this result transmitted ref erence range: <0.41 ?g /mL (FEU). The refe rence range was not u sed to interpret this result as normal/abnor mal. AMALIA (test code = AMALIA) Lab Interpretation (test Abnormal code = 88873-5) [facility] PAN[facility] (NA, K, CL, CO2, GLUCOSE, BUN, CREATININE, CA)2021-02-13 06:58:46 Test Item Value Reference Range Interpretation Comments NA (test code = 3215115835) 139 mmol/L 135-145 K (test code = 1979681185) 4.7 mmol/L 3.5-5.0 CL (test code = 2906085625) 108 mmol/L 98-108 CO2 TOTAL (test code = 9425183425) 27 mmol/L 23-31 AGAP (test code = 6064282129) 2-16 BUN (test code = 1222420397) 22 mg/dL 7-23 GLUCOSE (test code = 7838526327) 106 mg/dL 70-110 CREATININE (test code = 1.10 mg/dL 0.50-1.04 H 8754832029) CALCIUM (test code = 3357213844) 10.1 mg/dL 8.6-10.6 eGFR (test code = 1811203407) mL/min/1.73m2 AMALIA (test code = AMALIA) Lab Interpretation (test code = Abnormal 22287-7) [facility] View Portable [facility]: EMILYSwati JANICE DORANHLEEN : 1955 [facility]: JANICE DELA CRUZ [address] Phys: [place] [address] : 1955 Age: 65 SEX:[phone] Exam Date: 02/21/21 Status: REG ER Acct: [id number] Loc: [facility] Pt Unit #: [id number] Report #: [id number] CC: JESSE ANGELES MD IMAGING SERVICES REPORT Order # Category/Exam [id number] RAD/XR Chest 1 View Portable ([id number]): . Results Exam: Chest one view HISTORY:Dyspnea COMPARISON: None FINDINGS: Cardiac silhouette: NormalAorta: Unremarkable Pulmonary vessels: Normal Costophrenic angles: Clear Lungs: Hyperinflation with chronic changes. Pneumothorax: None Osseous abnormalities: None IMPRESSION: No acute cardiopulmonaryprocess. COMMUNICATION: Reported By: Antonio Vaca MD Electronically Signed Date/Time: 02/21/21 1037 Technologist: ALFONZO Dictated Date/Time: 02/21/21 1036 Transcribed Date/Time:"
[2022-07-02] MEDS ORDERED: NA CHLORIDE 0.9% 1,000 ML ONE (10:17)
[2022-07-02 11:28] LABS: SARS-CoV-2 Antigen Rapid Res Negative (Negative)
[2022-07-02 11:37] LABS: Absolute Lymphocytes (CBC) 1.5 K/uL (0.7-4.9); Hematocrit 36.4 % (36.0-45.0); MCV 84.9 fL (80-100); MPV 8.4 fL (7.6-11.3); RBC Red Blood Cell Count 4.28 M/uL (3.86-4.86)
[2022-07-02 11:42] LABS: Protime INR 1.02
[2022-07-02 12:04] LABS: ALT/SGPT 23 U/L (13-56); AST/SGOT 16 U/L (15-37); Albumin 3.9 g/dL (3.4-5.0); Alkaline Phosphatase 102 U/L (45-117); BUN Blood Urea Nitrogen 18 mg/dL (7-18); Bicarbonate 28 mmol/L (21-32); Bilirubin Direct 0.1 mg/dL (0-0.2); Bilirubin Total 0.5 mg/dL (0.2-1.0); Glomerular Filtration Rate 50 ml/min (=/>90); Glucose Level 103 mg/dL (74-106); Potassium 4.4 mmol/L (3.5-5.1); Protein, Total 7.9 g/dL (6.4-8.2); Sodium Level 140 mmol/L (136-145)
--- NOTE | 2022-07-02 12:17 | ER ---
Nurse's Notes [facility] Name: Janice Harry Age: 66 yrs Sex: Female : 1955 Arrival Date: 07/02/2022 Time: 09:46 Bed 17 Private MD: Steve Benson Diagnosis: Major depressive disorder, recurrent, moderate;Suicidal ideations Presentation: 07/02 09:53 Chief complaint: Patient states: feeling depressed "for a few days". Pt also reports aa5 diarrhea and nausea for a few days. Pt reports suicidal ideations without a plan. 09:53 Coronavirus screen: diarrhea, nausea. Ebola Screen: Patient denies travel to an aa5 Ebola-affected area in the 21 days before illness onset. Initial Sepsis Screen: Does the patient meet any 2 criteria? No. Patient's initial sepsis screen is negative. Does the patient have a suspected source of infection? No. Patient's initial sepsis screen is negative. Risk Assessment: Do you want to hurt yourself or someone else? Patient reports desire/thoughts of hurting themselves or someone else. Provider notified. Onset of symptoms was June 2022. 09:53 Acuity: HEBER 2 aa5 09:53 Method Of Arrival: Ambulatory aa5 Triage Assessment: 10:00 General: Appears in no apparent distress. obese, Behavior is cooperative, appropriate bp for age, anxious, drowsy. Pain: Denies pain. EENT: No deficits noted. Neuro: Level of Consciousness is awake, alert, obeys commands, Oriented to Appropriate for age. Cardiovascular: No deficits noted. Respiratory: No deficits noted. GI: No signs and/or symptoms were reported involving the gastrointestinal system. : No signs and/or symptoms were reported regarding the genitourinary system. Derm: No deficits noted. Musculoskeletal: No deficits noted. Historical: - Allergies: 09:54 Cipro; aa5 09:54 Codeine; aa5 09:54 Requip; aa5 09:54 Tegretol; aa5 - PMHx: 09:54 Anxiety; Asthma; Depression; Hyperlipidemia; Hypertension; Takotsubo Cardiomyopathy; aa5 - Family history:: not pertinent. Screenin:33 [facility] ED Fall Risk Assessment (Adult) History of falling in the last 3 months, bp including since admission No falls in past 3 months (0 pts). Abuse screen: Denies threats or abuse. Denies injuries from another. Nutritional screening: No deficits noted. Tuberculosis screening: No symptoms or risk factors identified. Assessment: 10:00 General: SEE TRIAGE NOTE. bp 16:39 Reassessment: REPORT TO [facility]. bp 18:06 Reassessment: PT TOD WITH EMS. bp Psych: 18:07 [place] Suicide Severity Screening: In the past month, have you wished you were bp or wished you could go to sleep and not wake up? Patient responds "yes." Based off the client's responses additional C-SSRS screening is required. "In the past month, have you actually had any thoughts of killing yourself?" Patient responds "yes." Based off the client's response additional [place] suicide severity screening questions to be further documented on paper forms. "In your lifetime, have you ever done anything, started to do anything, or prepared to do anything to end your life?" Patient responds "yes." Patient reports suicidal intent within 3 past months. Subjective: Patient's mood is sad, Delusions are denied, Hallucinations are denied Having thoughts of suicide. Denies suicidal plan. Objective: Patient is cooperative, Speech is normal, Affect is appropriate. Interventions: Removed personal items and placed in bag. Patient placed in hospital gown. Searched person for dangerous items. Belonging list filled out. Safety Checks: Personal items have been removed. Door is open. Pt denies substance abuse. Commitment: Patient will be a voluntary commitment. Vital Signs: 09:53 BP 176 / 79; Pulse 68; Resp 18 S; Temp 97.7(TE); Pulse Ox 97% on R/A; Weight 99.79 kg aa5 (R); Height 5 ft. 8 in. (172.72 cm) (R); Pain 0/10; 16:38 BP 155 / 69; Pulse 71; Resp 14; Temp 97.9; Pulse Ox 93% on R/A; bp 09:53 Body Mass Index 33.45 (99.79 kg, 172.72 cm) aa5 ED Course: 09:46 Patient arrived in ED. am2 09:46 Steve Benson MD is Private Physician. am2 09:47 Adolfo Renteria MD is Attending Physician. [facility] 09:53 Arm band placed on. aa5 09:58 Triage completed. aa5 10:08 Tony Rich, RN is Primary Nurse. bp 10:33 Patient has correct armband on for positive identification. Bed in low position. Call bp light in reach. Side rails up X2. 11:30 Inserted saline lock: 24 gauge in left hand, using aseptic technique. bp 16:03 pt clinical information sent to [facility], [facility], and [facility].em1 18:07 No provider procedures requiring assistance completed. IV discontinued, intact, bp bleeding controlled, No redness/swelling at site. Pressure dressing applied. Administered Medications: 11:30 Drug: NS 0.9% 500 ml Route: IV; Rate: bolus; Site: right hand; bp 18:08 Follow up: IV Status: Completed infusion; IV Intake: 1000ml bp 14:47 Drug: Ativan (LORazepam) 1 mg Route: IVP; Site: left hand; ld1 18:08 Follow up: Response: No adverse reaction bp 14:48 Drug: KLONopin (clonazePAM) 1 mg Route: PO; ld1 18:08 Follow up: Response: No adverse reaction bp Intake: 18:08 IV: 1000ml; Total: 1000ml. bp Outcome: 12:17 ER care complete, transfer ordered by . jose 18:06 Transferred by ground EMS Note: [facility] bp 18:06 Condition: stable 18:06 Instructed on the need for transfer. 18:09 Patient left the ED. bp Signatures: Adolfo Renteria MD MD cha Martinez, Eric em1 Romina Kemp, RN RN aa5 Xiomara Hobbs am2 Tony Rich, RN RN bp Aminta Parks RN RN ld1
--- NOTE | 2022-07-02 12:17 | EDPHYS ---
Physician Documentation [facility] Name: Janice Harry Age: 66 yrs Sex: Female : 1955 Arrival Date: 07/02/2022 Time: 09:46 Bed 17 Private MD: Steve Benson ED Physician Adolfo Renteria HPI: 07/02 12:11 This 66 yrs old Female presents to ER via Ambulatory with complaints of jose Suicidal Ideation, Depression. 12:11 The patient presents to the emergency department with anxiety, depression, suicide jose ideation, and the patient has a plan, to overdose with medications. Onset: The symptoms/episode began/occurred 3 day(s) ago. Past psychiatric history: Prior diagnosis: depression, Psychiatric medications include:. Historical: - Allergies: 09:54 Cipro; aa5 09:54 Codeine; aa5 09:54 Requip; aa5 09:54 Tegretol; aa5 - PMHx: 09:54 Anxiety; Asthma; Depression; Hyperlipidemia; Hypertension; Takotsubo Cardiomyopathy; aa5 - Family history:: not pertinent. ROS: 12:11 Constitutional: Negative for fever, chills, and weight loss, Eyes: Negative for injury, jose pain, redness, and discharge, ENT: Negative for injury, pain, and discharge, Neck: Negative for injury, pain, and swelling, Cardiovascular: Negative for chest pain, palpitations, and edema, Respiratory: Negative for shortness of breath, cough, wheezing, and pleuritic chest pain, Abdomen/GI: Negative for abdominal pain, nausea, vomiting, diarrhea, and constipation, Back: Negative for injury and pain, : Negative for injury, bleeding, discharge, and swelling, MS/Extremity: Negative for injury and deformity, Skin: Negative for injury, rash, and discoloration, Allergy/Immunology: Negative for hives, rash, and allergies, Endocrine: Negative for neck swelling, polydipsia, polyuria, polyphagia, and marked weight changes, Hematologic/Lymphatic: Negative for swollen nodes, abnormal bleeding, and unusual bruising. 12:11 Psych: Positive for anxiety, depression, suicidal ideation. Exam: 12:11 Constitutional: This is a well developed, well nourished patient who is awake, alert, jose and in no acute distress. Head/Face: Normocephalic, atraumatic. Eyes: Pupils equal round and reactive to light, extra-ocular motions intact. Lids and lashes normal. Conjunctiva and sclera are non-icteric and not injected. Cornea within normal limits. Periorbital areas with no swelling, redness, or edema. ENT: Nares patent. No nasal discharge, no septal abnormalities noted. Tympanic membranes are normal and external auditory canals are clear. Oropharynx with no redness, swelling, or masses, exudates, or evidence of obstruction, uvula midline. Mucous membranes moist. Neck: Trachea midline, no thyromegaly or masses palpated, and no cervical lymphadenopathy. Supple, full range of motion without nuchal rigidity, or vertebral point tenderness. No Meningismus. Chest/axilla: Normal chest wall appearance and motion. Nontender with no deformity. No lesions are appreciated. Cardiovascular: Regular rate and rhythm with a normal S1 and S2. No gallops, murmurs, or rubs. Normal PMI, no JVD. No pulse deficits. Respiratory: Lungs have equal breath sounds bilaterally, clear to auscultation and percussion. No rales, rhonchi or wheezes noted. No increased work of breathing, no retractions or nasal flaring. Abdomen/GI: Soft, non-tender, with normal bowel sounds. No distension or tympany. No guarding or rebound. No evidence of tenderness throughout. Back: No spinal tenderness. No costovertebral tenderness. Full range of motion. Female : Normal external genitalia. Skin: Warm, dry with normal turgor. Normal color with no rashes, no lesions, and no evidence of cellulitis. MS/ Extremity: Pulses equal, no cyanosis. Neurovascular intact. Full, normal range of motion. Neuro: Awake and alert, GCS 15, oriented to person, place, time, and situation. Cranial nerves II-XII grossly intact. Motor strength 5/5 in all extremities. Sensory grossly intact. Cerebellar exam normal. Normal gait. Psych: Awake, alert, with orientation to person, place and time. Behavior, mood, and affect are within normal limits. Vital Signs: 09:53 BP 176 / 79; Pulse 68; Resp 18 S; Temp 97.7(TE); Pulse Ox 97% on R/A; Weight 99.79 kg aa5 (R); Height 5 ft. 8 in. (172.72 cm) (R); Pain 0/10; 16:38 BP 155 / 69; Pulse 71; Resp 14; Temp 97.9; Pulse Ox 93% on R/A; bp 09:53 Body Mass Index 33.45 (99.79 kg, 172.72 cm) aa5 MDM: 09:47 Patient medically screened. [facility] 12:13 Differential diagnosis: acute psychotic break, depression, psychosis secondary to jose non-compliance. Data reviewed: vital signs, nurses notes, lab test result(s), radiologic studies, plain films. Consideration of Admission/Observation Patient was admitted/placed on observation. Escalation of care including admission/observation considered. Management of patient was discussed with the following: [place] Automatic: PSYCH, DR Yvette Mauricio considered the following discharge prescriptions or medication management in the emergency department Medications were administered in the Emergency Department. See MAR. Test considered but Not performed: X-ray: CHEST. Care significantly affected by the following chronic conditions: Obesity, ASTHMA. 07/02 09:47 Order name: Acetaminophen; Complete Time: 12:10 [facility] 07/02 09:47 Order name: Basic Metabolic Panel; Complete Time: 12:10 [facility] 07/02 09:47 Order name: CBC with Diff; Complete Time: 12:10 [facility] 07/02 09:47 Order name: ETOH Level; Complete Time: 12:10 [facility] 07/02 09:47 Order name: Hepatic Function; Complete Time: 12:10 jose 07/02 09:47 Order name: PT-INR; Complete Time: 12:10 [facility] 07/02 09:47 Order name: Ptt, Activated; Complete Time: 12:10 [facility] 07/02 09:47 Order name: Salicylate; Complete Time: 14:32 jose 07/02 09:47 Order name: EKG; Complete Time: 09:48 [facility] 07/02 10:32 Order name: SARS RAPID; Complete Time: 12:10 bp 07/02 09:47 Order name: IV Saline Lock; Complete Time: 11:36 jose 07/02 09:47 Order name: Labs collected and sent; Complete Time: 11:36 jose 07/02 09:47 Order name: Suicide Precautions; Complete Time: 10:10 [facility] 07/02 09:47 Order name: Suicide Screening ([place]); Complete Time: 11:36 [facility] Administered Medications: 11:30 Drug: NS 0.9% 500 ml Route: IV; Rate: bolus; Site: right hand; bp 18:08 Follow up: IV Status: Completed infusion; IV Intake: 1000ml bp 14:47 Drug: Ativan (LORazepam) 1 mg Route: IVP; Site: left hand; ld1 18:08 Follow up: Response: No adverse reaction bp 14:48 Drug: KLONopin (clonazePAM) 1 mg Route: PO; ld1 18:08 Follow up: Response: No adverse reaction bp Disposition Summary: 07/02/22 12:17 Transfer Ordered Transfer Location: Psych Facility jose Reason: Higher level of care jose Condition: Fair jose Problem: new jose Symptoms: have improved jose Accepting Physician: TO PSYCH(07/02/22 18:09) bp Diagnosis - Major depressive disorder, recurrent, moderate jose - Suicidal ideations jose Forms: - Medication Reconciliation Form jose - SBAR form jose Signatures: Dispatcher [employer] EDAdolfo Ingram MD MD cha Calderon, Audri, RN RN aa5 Tony Rich RN RN bp Aminta Parks RN RN ld1 Corrections: (The following items were deleted from the chart) 18: 12:17 TO PSYCH jose bp
[2022-07-02] MEDS ORDERED: clonazePAM 1 MG TAB ONE (14:45)
[2022-07-02] MEDS ORDERED: LORazepam 2 MG/ML VIAL ONE (14:46)
[2022-07-02 18:57] VITALS: BP 155/69; TEMP 97.9; O2SAT 93
== END 2022-07-02 18:09 ==
LOC: ER 09:36
DX: R45.851 Suicidal ideations (principal); F33.1 Major depressive disorder, recurrent, moderate; Z20.822 Contact with and (suspected) exposure to COVID-19; Z88.1 Allergy status to other antibiotic agents; Z88.5 Allergy status to narcotic agent; Z88.8 Allergy status to other drugs, medicaments and biological substances
CPT/HCPCS: 96361; 85025; 80048; 36415; 85610; 80076; 85730; 96374; 99285; 87811; J7030; G0480 ×3

== ENCOUNTER 2022-10-26 11:23 | Emergency (ER) | payer MEDICARE ==
--- OUTSIDE RECORDS SUMMARY | 2022-10-26 11:32 | XMS REPORT | Continuity of Care Document ---
:1955 Author Organization [facility] t Address [address] [facility] [address] [place] [address] Care Team Providers Name Role Phone Asked, No Pcp Primary Care Physician Unavailable Torito Cabrera Attending Clinician Philipp Liriano Attending Clinician KYLE VIVAS Attending Clinician Unavailable Kyle Luis Attending Clinician [email or web address] Attending Clinician Unavailable Bess Godoy Attending Clinician Tom Euceda Attending Clinician Edd YUEN Attending Clinician Unavailable Edd Lin Attending Clinician JUANITA KHAN Attending Clinician Unavailable Fatuma Jacksno Attending Clinician NICOLETTE CAMPBELL Attending Clinician Unavailable Nicolette Eden Attending Clinician JOSE ROSS Attending Clinician Unavailable Jose Ross DO Attending Clinician Jolynn_Jordan Attending Clinician Unavailable Jesse Angeles Attending Clinician Unavailable Laura AGUILAR, Bertin Ferguson Attending Clinician Jessica LAUNDRETTE OWNER, Mallory Olmedo Attending Clinician Jayson NELSON, Janice Lennon Attending Clinician Unavailable Julio Cesar DIAZ, Xiomara Attending Clinician UNKNOWN, ATTENDING Attending Clinician Unavailable MERLINE_Citlalli Attending Clinician Unavailable Stefano DIAZ, Vishal Attending Clinician Shruti DIAZ, Liana Ortega Attending Clinician Jerzy Rangel DO Attending Clinician Bismark DIAZ, Sendil K.H. Attending Clinician Cr Roy MD Attending Clinician Dylan PT, Beny Attending Clinician Unavailable Monie PT, Mara Killian Attending Clinician Unavailable BISMARK, SENDIL K.H. Attending Clinician Unavailable AURELIA KIM Attending Clinician Unavailable JERZY RANGEL Attending Clinician Unavailable JERZY RANGEL Attending Clinician Unavailable Erin DODSONP, Juanita Jones Attending Clinician GARY CARR Attending Clinician Unavailable Nathen DODSONPGary Attending Clinician ANGELINA SAEZ Attending Clinician Unavailable KYLE VIVAS Admitting Clinician Unavailable [email or web address] Admitting Clinician Unavailable Edd YUEN Admitting Clinician Unavailable Jolynn_Jordan Admitting Clinician Unavailable MERLINE_Citlalli Admitting Clinician Unavailable Payers Payer Name Policy Type Policy Number Effective Date Expiration Date S 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 [id number] NON-CONTRACT 00:00:00 GENERIC AETNA MEDICARE ADV [id number] 2019 00:00:00 [employer] [id number] MEDICARE ADVANTAGE 00:00:00 PLAN [facility] [id number] (MEDICARE 00:00:00 REPLACEMENT HMO) MANAGED MEDICARE [id number] PPO/FFS GENERIC 00:00:00 [facility]LLY [facility]ELODIE [facility] [id number] 2019 00:00:00 Problems Condition Condition Condition Status Onset Resolution Last Treating Co mments Source Name Details Category Date Date Treatment Clinician Date Acute pain Acute pain Disease Active M ethodi of right of right 4- st shoulder shoulder 00:00: Hospit a 00 l Fatty Fatty Disease Active Univers liver liver 2-25 ity of 00:00: [place] [facility] Macular Macular Disease Active Univers degenerati degenerati 2-25 it y of on on 00:00: [place] [facility] Vitamin D Vitamin D Disease Active Uni vers deficiency deficiency 2-25 it y of 00:00: [place] [facility] Alopecia Alopecia Disease Active Overview: Un kizzy 2-25 Formattin ity of 00:00: g of this [place] note Medical might be Branch different from the original. Has been seen by Jorge A ontiveros. Allergic Allergic Disease Active Unive rs rhinitis rhinitis 2-25 ity of 00:00: [place] [facility] B12 B12 Disease Active Univers deficiency deficiency 9-25 it y of 00:00: [place] [facility] Stress Stress Disease Active Univers incontinen incontinen 9-25 it y of ce ce 00:00: [place] [facility] HLD HLD Disease Active Univers (hyperlipi (hyperlipi 9-19 it y of demia) demia) 00:00: [place] [facility] Chest pain Chest pain Disease Active U nivers 9-18 ity of 00:00: [place] [facility] Vertigo Vertigo Disease Active Univers 8-12 ity of 00:00: [place] [facility] SOB SOB Disease Active Univers (shortness (shortness 1-28 it y of of breath) of breath) 00:00: [place] [facility] Dyspnea Dyspnea Disease Active 2015-06 Univers 2-16 ity of 00:00: [place] [facility] Shortness Shortness Disease Active 2015-06 Uni vers of breath of breath 1-28 ity of 00:00: [place] [facility] Obesity Obesity Disease Active 2015-06 Univers (BMI (BMI 1-20 ity of 30-39.9) 30-39.9) 00:00: [place] [facility] Acute Acute Disease Active 2015-06 Univers respirator respirator 1-20 it y of y failure y failure 00:00: [place] [facility] Shoulder Shoulder Disease Active Unive rs pain, pain, 307 ity of right right 00:00: Medical Branch Suicidal Suicidal Disease Active Unive rs ideations ideations 09-25 ity of 00:00: [place] 00 Medical Branch Hyponatrem Hyponatrem Disease Active U reneeers ia ia 09-25 ity of 00:00: [place] 00 Medical Branch Cardiomyop Cardiomyop Disease Active U reneeers athy athy ity of [place] [facility] Allergies, Adverse Reactions, Alerts Allergy Allergy Status Severity Reaction(s) Onset Inactive Treating Comm ents Source Name Type Date Date Clinician CODEINE DRUG Active High N/V Univers INGREDI 02-15 ity of 00:00: Medical Branch Codeine Propensi Active Nausea Univers ty to and/or 02-15 ity of adverse Vomiting 00:00: [place] reaction Medical s Branch BUPRENOR DRUG Active Unknown-Cmnt Un kizzy PHINE-NA 906 ity of LOXONE 00:00: Medical Branch CIPROFLO DRUG Active ITCHING Univers XACIN INGREDI 8 ity of 00:00: 00 Medical Branch Ciproflo Propensi Active Itching Unive rs xacin ty to 8-12 ity of adverse 00:00: [place] reaction 00 Medical s Branch SHELLFIS DRUG Active ITCHING 2015-06 Univers H INGREDI 07-11 ity of DERIVED 00:00: Medical Branch Shellfis Propensi Active Itching 2015-06 For Food Uni vers h ty to 21 Service ity of Derived adverse 00:00: Use [...] reaction 00 Medica l s Branch Products Iodine Propensi Active Itching Univers And ty to 9-20 ity of Iodide adverse 00:00: [place] Containi reaction 00 Medica l ng s Branch Products CARBAMAZ DRUG Active Hives Univers EPINE INGREDI 4-07 ity of 00:00: [place] 00 Medical Branch Social History Social Habit Start Date Stop Date Quantity Comments Source Gender identity [facility] Sexual orientation [facility] Exposure to 2022-04-19 2022-04-29 Not sure University SARS-CoV-2 (event) 00:00:00 21:30:00 [facility] Alcohol intake 2022-04-29 2022-04-29 Current University of 00:00:00 00:00:00 non-drinker of [facility] alcohol Branch (finding) Cigarettes smoked 2017-07-26 2017-07-[address] [facility] ity of current (pack per 00:00:00 00:00:00 [facility] [place] [facility] ) - Reported Branch Cigarette 2017-07-26 2017-07-26 University of pack-years 00:00:00 00:00:00 [facility] Tobacco use and 2017-07-26 2017-07-26 Former smokeless Uni versity of exposure 00:00:00 00:00:00 tobacco user [facility] History of tobacco 2012-09-26 User of Univer sity of use 00:00:00 smokeless [facility] tobacco [place] Sex [birth year] [facility] 00:00:00 00:[facility]:00 [facility] Smoking Status Start Date Stop Date Source Tobacco smoking [facility] al consumption unknown Ex-smoker 2017-07-26 00:00:00 2017-07-26 [place] [facility] [place] 00:00:00 [facility] Medications Ordered Filled Start Stop Current Ordering Indication Dosage Frequency Signature Comments Components Source Medication Medication Date Date Medication? Clinician (SIG) Name Name ondansetron 2021-06- No 4mg 4 mg, Slow Univers (ZOFRAN 1-10 11-10 IV Push, ity of (PF)) 05:00: 04:27 ONCE, 1 [place] injection 4 00 :00 dose, On Medi dave mg Wed Branch 04/29/22 at 2300, MARK ondansetron 2021- No 4mg 4 mg, Slow Univers (ZOFRAN -12 03-12 IV Push, ity of (PF)) 18:30: 17:36 [...] dose, On 08/30/21 at 1130, STAT phenazopyri 0 2021- No 200mg 200 mg, U nivers dine 1-04 01-04 Oral, ity of (PYRIDIUM) 16:15: 15:08 ONCE, 1 [place] as tablet 200 00 :00 dose, On Medic al mg 06/24/21 Branch at 1015, Routine phenazopyri 2021-0 Yes [id number] 200mg Take 1 Univers dine 200 mg 1-04 tablet by ity of tablet 00:00: mouth 3 [place] 00 (three) Medical times Branch daily. phenazopyri 2021-0 Yes [id number] 200mg Take 1 Univers dine 200 mg 1-04 tablet by ity of tablet 00:00: mouth 3 [place] 00 (three) Medical times Branch daily. phenazopyri 2021-0 Yes [id number] 200mg Take 1 Univers dine 200 mg 1-04 tablet by ity of tablet 00:00: mouth 3 [place] 00 (three) Medical times Branch daily. phenazopyri 2022-0 Yes [id number] 200mg Take 1 Univers dine 200 mg -04 tablet by ity of tablet 00:00: mouth 3 [place] 00 (three) Medical times Branch daily. cephALEXin 2021- No [id number] 500mg Take 1 Univers (KEFLEX) 1-04 -12 capsule by ity of 500 mg 00:00: 05:59 mouth 3 [place] capsule 00 :00 (three) Medical times Branch daily for 7 days. amoxicillin Yes 1{tbl} 1 tablet, [facility] -clavulanat 02-14 Oral, ity of e 13:00: [...] [place] Medi dave (4 %) 02/13/21 at Branch infusion 2 2215, g Routine methylPREDN 2020- [...] Cathy Medica l mg(2.5 mg 02/13/21 at [facility] base)/3 mL 2214, nebulizer Routine solution 6 mL NaCl 0.9% 2020- No 1000mL at 999 Uni vers (NS) bolus 02-14 mL/hr, ity of infusion 02:45: 04:00 1,000 mL, [place] as 1,000 mL 00 :00 IV Medical Piggyback, Branch ONCE, 1 dose, Cathy 02/13/21 at 2145, STAT amoxicillin 2020-0 Yes [id number] 1{tbl} Take 1 Univers -clavulanat 8-27 tablet by ity of e 875-125 00:00: mouth [place] mg per 00 every 12 Medical tablet (twelve) Branch hours. amoxicillin 2020-0 Yes [id number] 1{tbl} Take 1 Univers -clavulanat 8-27 tablet by ity of e 875-125 00:00: mouth [place] mg per 00 every 12 Medical tablet (twelve) Branch hours. amoxicillin 2020-0 Yes [id number] 1{tbl} Take 1 Univers -clavulanat 8-27 tablet by ity of e 875-125 00:00: mouth [place] mg per 00 every 12 Medical tablet (twelve) Branch hours. amoxicillin 2020-0 Yes [id number] 1{tbl} Take 1 Univers -clavulanat 8-27 tablet by ity of e 875-125 00:00: mouth [place] mg per 00 every 12 Medical tablet (twelve) Branch hours. amoxicillin 2021-0 Yes [id number] 1{tbl} Take 1 Univers -clavulanat 8-27 tablet by ity of e 875-125 00:00: mouth [place] mg per 00 every 12 Medical tablet (twelve) Branch hours. iopamidol 2020- No [id number] 100mL 100 mL, [facility] (ISOVUE 02-13 Intravenou ity o f 370-500 mL) 11:30: 10:26 s, ONCE, 1 [place] injection 00 :00 dose, Cathy Medic al 100 mL 02/13/21 at Branch 0630, Routine diphenhydrA 2020- No 25mg 25 mg, Uni vers MINE 02-13 Slow IV ity of (BENADRYL) 08:30: 08:07 Push, [place] injection 00 :00 ONCE, 1 Medical 25 mg dose, [facility] 02/13/21 at 0330, STAT methylpredn 2020- No 125mg 125 mg, U nivers isolone sod 02-13 Slow IV ity of succ 07:15: 06:39 Push, [place] (SOLU-MEDRO 00 :00 ONCE, 1 Medic al L) dose, [facility] injection 02/13/21 at 125 mg 0215, STAT ipratropium 2020- No 3mL 3 mL, Univ ers -albuteroL 02-13 Inhalation it y of (DUONEB) 07:15: 06:27 , ONCE [place] 0.5 mg-3 00 :00 NOW, 1 Medical mg(2.5 mg dose, [facility] h base)/3 mL 02/13/21 at nebulizer 0215, solution 3 Routine mL diphenhydrA 2020- No 25mg 25 mg, Uni vers MINE 02-13 Slow IV ity of (BENADRYL) 06:45: 07:00 Push, [place] injection 00 :00 ONCE, 1 Medical 25 mg dose, [facility] 02/13/21 at 0200, STAT guaiFENesin 0 Yes [id number] 400mg Take 1 Univers 400 mg 8-24 tablet by ity of tablet 00:00: mouth [place] 00 every 4 Medical (four) Branch hours as needed for Cough. benzonatate 2021-0 Yes [id number] 200mg Take 2 Univers 100 mg 8-24 capsules ity of capsule 00:00: by mouth 2 [place] 00 (two) Medical times Branch daily as needed for Cough. guaiFENesin 1-0 Yes [id number] 400mg Take 1 Univers 400 mg 8-24 tablet by ity of tablet 00:00: mouth [place] 00 every 4 Medical (four) Branch hours as needed for Cough. benzonatate 1-0 Yes [id number] 200mg Take 2 Univers 100 mg 8-24 capsules ity of capsule 00:00: by mouth 2 [place] 00 (two) Medical times Branch daily as needed for Cough. guaiFENesin 2020-0 Yes [id number] 400mg Take 1 Univers 400 mg 8-24 tablet by ity of tablet 00:00: mouth [place] 00 every 4 Medical (four) Branch hours as needed for Cough. benzonatate 2020-0 Yes [id number] 200mg Take 2 Univers 100 mg 8-24 capsules ity of capsule 00:00: by mouth 2 [place] 00 (two) Medical times Branch daily as needed for Cough. guaiFENesin 2020-0 Yes [id number] 400mg Take 1 Univers 400 mg 8-24 tablet by ity of tablet 00:00: mouth [place] 00 every 4 Medical (four) Branch hours as needed for Cough. benzonatate 2020-0 Yes [id number] 200mg Take 2 Univers 100 mg 8-24 capsules ity of capsule 00:00: by mouth 2 [place] 00 (two) Medical times Branch daily as needed for Cough. guaiFENesin 1-0 Yes [id number] 400mg Take 1 Univers 400 mg 8-24 tablet by ity of tablet 00:00: mouth [place] 00 every 4 Medical (four) Branch hours as needed for Cough. benzonatate 1-0 Yes [id number] 200mg Take 2 Univers 100 mg 8-24 capsules ity of capsule 00:00: by mouth 2 [place] 00 (two) Medical times Branch daily as needed for Cough. guaiFENesin 1-0 Yes [id number] 400mg Take 1 Univers 400 mg 8-24 tablet by ity of tablet 00:00: mouth [place] 00 every 4 Medical (four) Branch hours as needed for Cough. benzonatate 2021-0 Yes [id number] 200mg Take 2 Univers 100 mg 8-24 capsules ity of capsule 00:00: by mouth 2 [place] 00 (two) Medical times Branch daily as needed for Cough. guaiFENesin 2020-0 Yes [id number] 400mg Take 1 Univers 400 mg 8-24 tablet by ity of tablet 00:00: mouth [place] 00 every 4 Medical (four) Branch hours as needed for Cough. benzonatate 2020-0 Yes [id number] 200mg Take 2 Univers 100 mg 8-24 capsules ity of capsule 00:00: by mouth 2 [place] 00 (two) Medical times Branch daily as needed for Cough. guaiFENesin 2020-0 Yes [id number] 400mg Take 1 Univers 400 mg 8-24 tablet by ity of tablet 00:00: mouth [place] 00 every 4 Medical (four) Branch hours as needed for Cough. benzonatate 2020-0 Yes [id number] 200mg Take 2 Univers 100 mg 8-24 capsules ity of capsule 00:00: by mouth 2 [place] 00 (two) Medical times Branch daily as needed for Cough. cephALEXin 0 2020- No [id number] 500mg Take 1 Univers (KEFLEX) 8-24 -29 capsule by ity of 500 mg 00:00: 04:59 mouth 4 [place] capsule 00 :00 (four) Medical times Branch daily for 4 days. cephALEXin 0 2020- No [id number] 500mg Take 1 Univers (KEFLEX) 8-24 08-29 capsule by ity of 500 mg 00:00: 04:59 mouth 4 [place] capsule 00 :00 (four) Medical times Branch daily for 4 days. cephALEXin 0 2020- No [id number] 500mg Take 1 Univers (KEFLEX) 8-24 08-29 capsule by ity of 500 mg 00:00: 04:59 mouth 4 [place] capsule 00 :00 (four) Medical times Branch daily for 4 days. cephALEXin 2020-0 2020- No [id number] 500mg Take 1 Univers (KEFLEX) 8-24 08-29 capsule by ity of 500 mg 00:00: 04:59 mouth 4 [place] capsule 00 :00 (four) Medical times Branch daily for 4 days. cetirizine 2020-0 Yes [id number] 10mg Take 1 U nivers (ZYRTEC) 10 8-20 tablet by ity of mg tablet 00:00: mouth [place] 00 daily. Medical Branch famotidine Yes [id number] 40mg Take 1 U nivers 40 mg 8-20 tablet by ity of tablet 00:00: mouth 2 [place] 00 (two) Medical times Branch daily. montelukast Yes [id number] 10mg Take 1 Univers 10 mg 8-20 tablet by ity of tablet 00:00: mouth [place] 00 daily. Medical Branch cetirizine Yes [id number] 10mg Take 1 U nivers (ZYRTEC) 10 8-20 tablet by ity of mg tablet 00:00: mouth [place] 00 daily. Medical Branch famotidine Yes [id number] 40mg Take 1 U nivers 40 mg 8-20 tablet by ity of tablet 00:00: mouth 2 00 (two) Medical times Branch daily. montelukast Yes [id number] 10mg Take 1 Univers 10 mg 8-20 tablet by ity of tablet 00:00: mouth [place] 00 daily. Medical Branch cetirizine Yes [id number] 10mg Take 1 U nivers (ZYRTEC) 10 8-20 tablet by ity of mg tablet 00:00: mouth [place] 00 daily. Medical Branch famotidine Yes [id number] 40mg Take 1 U nivers 40 mg 8-20 tablet by ity of tablet 00:00: mouth 2 00 (two) Medical times Branch daily. montelukast Yes [id number] 10mg Take 1 Univers 10 mg 8-20 tablet by ity of tablet 00:00: mouth [place] 00 daily. Medical Branch cetirizine Yes [id number] 10mg Take 1 U nivers (ZYRTEC) 10 8-20 tablet by ity of mg tablet 00:00: mouth [place] 00 daily. Medical Branch famotidine Yes [id number] 40mg Take 1 U nivers 40 mg 8-20 tablet by ity of tablet 00:00: mouth 2 [place] 00 (two) Medical times Branch daily. montelukast Yes [id number] 10mg Take 1 Univers 10 mg 8-20 tablet by ity of tablet 00:00: mouth [place] 00 daily. Medical Branch cetirizine Yes [id number] 10mg Take 1 U nivers (ZYRTEC) 10 8-20 tablet by ity of mg tablet 00:00: mouth [place] 00 daily. Medical Branch famotidine 0 Yes [id number] 40mg Take 1 U nivers 40 mg 8-20 tablet by ity of tablet 00:00: mouth 2 (two) Medical times Branch daily. montelukast 0 Yes [id number] 10mg Take 1 Univers 10 mg 8-20 tablet by ity of tablet 00:00: mouth [place] 00 daily. Medical Branch cetirizine Yes [id number] 10mg Take 1 U nivers (ZYRTEC) 10 8-20 tablet by ity of mg tablet 00:00: mouth [place] 00 daily. Medical Branch famotidine Yes [id number] 40mg Take 1 U nivers 40 mg 8-20 tablet by ity of tablet 00:00: mouth 2 (two) Medical times Branch daily. montelukast 0 Yes [id number] 10mg Take 1 Univers 10 mg 8-20 tablet by ity of tablet 00:00: mouth [place] 00 daily. Medical Branch cetirizine Yes [id number] 10mg Take 1 U nivers (ZYRTEC) 10 8-20 tablet by ity of mg tablet 00:00: mouth [place] 00 daily. Medical Branch famotidine Yes [id number] 40mg Take 1 U nivers 40 mg 8-20 tablet by ity of tablet 00:00: mouth 2 (two) Medical times Branch daily. montelukast 0 Yes [id number] 10mg Take 1 Univers 10 mg 8-20 tablet by ity of tablet 00:00: mouth [place] 00 daily. Medical Branch cetirizine 0 Yes [id number] 10mg Take 1 U nivers (ZYRTEC) 10 8-20 tablet by ity of mg tablet 00:00: mouth [place] 00 daily. Medical Branch famotidine 0 Yes [id number] 40mg Take 1 U nivers 40 mg 8-20 tablet by ity of tablet 00:00: mouth 2 (two) Medical times Branch daily. montelukast 2021-0 Yes [id number] 10mg Take 1 Univers 10 mg 8-20 tablet by ity of tablet 00:00: mouth [place] 00 daily. Medical Branch predniSONE 2020-0 1- No [id number] 40mg Take 2 Univers 20 mg 8-20 08-28 tablets by ity of tablet 00:00: 04:59 mouth [place] 00 :00 daily for Medical 7 days. Branch predniSONE 2020-0 2020- No [id number] 40mg Take 2 Univers 20 mg 8-20 08-28 tablets by ity of tablet 00:00: 04:59 mouth [place] 00 :00 daily for Medical 7 days. Branch predniSONE 2020-0 2020- No [id number] 40mg Take 2 Univers 20 mg 8-20 08-28 tablets by ity of tablet 00:00: 04:59 mouth [place] 00 :00 daily for Medical 7 days. Branch predniSONE 2020-0 2020- No [id number] 40mg Take 2 Univers 20 mg 8-20 08-28 tablets by ity of tablet 00:00: 04:59 mouth [place] 00 :00 daily for Medical 7 days. Branch albuterol-i Yes [id number] 1{puff} Inhale 1 Univers pratropium 8-19 Puff every ity of (COMBIVENT 00:00: 6 (six) [place] RESPIMAT) 00 hours. Medical 20-100 Need Branch mcg/actuati appointmen on inhaler t for more refills. albuterol-i Yes [id number] 1{puff} Inhale 1 Univers pratropium 8-19 Puff every ity of (COMBIVENT 00:00: 6 (six) [place] RESPIMAT) 00 hours. Medical 20-100 Need Branch mcg/actuati appointmen on inhaler t for more refills. albuterol-i Yes [id number] 1{puff} Inhale 1 Univers pratropium 8-19 Puff every ity of (COMBIVENT 00:00: 6 (six) [place] RESPIMAT) 00 hours. Medical 20-100 Need Branch mcg/actuati appointmen on inhaler t for more refills. albuterol-i Yes [id number] 1{puff} Inhale 1 Univers pratropium 8-19 Puff every ity of (COMBIVENT 00:00: 6 (six) [place] RESPIMAT) 00 hours. Medical 20-100 Need Branch mcg/actuati appointmen on inhaler t for more refills. albuterol-i 2020-0 Yes [id number] 1{puff} Inhale 1 Univers pratropium 8-19 Puff every ity of (COMBIVENT 00:00: 6 (six) [place] RESPIMAT) 00 hours. Medical 20-100 Need Branch mcg/actuati appointmen on inhaler t for more refills. albuterol-i 2020-0 Yes [id number] 1{puff} Inhale 1 Univers pratropium 8-19 Puff every ity of (COMBIVENT 00:00: 6 (six) [place] RESPIMAT) 00 hours. Medical 20-100 Need Branch mcg/actuati appointmen on inhaler t for more refills. albuterol-i 2020-0 Yes [id number] 1{puff} Inhale 1 Univers pratropium 8-19 Puff every ity of (COMBIVENT 00:00: 6 (six) [place] RESPIMAT) 00 hours. Medical 20-100 Need Branch mcg/actuati appointmen on inhaler t for more refills. albuterol-i 0 Yes [id number] 1{puff} Inhale 1 Univers pratropium 8-19 Puff every ity of (COMBIVENT 00:00: 6 (six) [place] RESPIMAT) 00 hours. Medical 20-100 Need Branch mcg/actuati appointmen on inhaler t for more refills. hydrOXYzine 2020-0 Yes [id number] 10mg Take 1 Univers 10 mg 8-17 tablet by ity of tablet 00:00: mouth [place] 00 every 6 Medical (six) Branch hours as needed for Itching. hydrOXYzine 2020-0 Yes [id number] 10mg Take 1 Univers 10 mg 8-17 tablet by ity of tablet 00:00: mouth [place] 00 every 6 Medical (six) Branch hours as needed for Itching. hydrOXYzine 2020-0 Yes [id number] 10mg Take 1 Univers 10 mg 8-17 tablet by ity of tablet 00:00: mouth [place] 00 every 6 Medical (six) Branch hours as needed for Itching. hydrOXYzine 2020-0 Yes [id number] 10mg Take 1 Univers 10 mg 8-17 tablet by ity of tablet 00:00: mouth [place] 00 every 6 Medical (six) Branch hours as needed for Itching. hydrOXYzine 2020-0 Yes [id number] 10mg Take 1 Univers 10 mg 8-17 tablet by ity of tablet 00:00: mouth [place] 00 every 6 Medical (six) Branch hours as needed for Itching. hydrOXYzine 2020-0 Yes [id number] 10mg Take 1 Univers 10 mg 8-17 tablet by ity of tablet 00:00: mouth [place] 00 every 6 Medical (six) Branch hours as needed for Itching. hydrOXYzine 2020-0 Yes [id number] 10mg Take 1 Univers 10 mg 8-17 tablet by ity of tablet 00:00: mouth [place] 00 every 6 Medical (six) Branch hours as needed for Itching. hydrOXYzine 2020-0 Yes [id number] 10mg Take 1 Univers 10 mg 8-17 [...] Indication s: acute pain predniSONE 2020-0 Yes [id number] TAKE ONE Univers 20 mg 8-12 [id number] TABLET BY ity of tablet 00:00: MOUTH [place] 00 DAILY Medical Branch famotidine 2020-0 Yes [id number] 20mg Take 1 Univers 20 mg 8-12 tablet by ity of tablet 00:00: mouth 2 [place] 00 (two) Medical times Branch daily. traMADoL 2020-0 Yes [id number] 50mg Take 1 Univers (ULTRAM) 50 8-12 tablet by ity of mg tablet 00:00: mouth [place] 00 every 6 Medical (six) Branch hours as needed for Pain (scale 7-10). Indication s: acute pain predniSONE 2020-0 Yes [id number] TAKE ONE Univers 20 mg 8-12 [id number] TABLET BY ity of tablet 00:00: MOUTH [place] 00 DAILY Medical Branch famotidine 2020-0 Yes [id number] 20mg Take 1 Univers 20 mg 8-12 tablet by ity of tablet 00:00: mouth 2 [place] 00 (two) Medical times Branch daily. traMADoL 2020-0 Yes [id number] 50mg Take 1 Univers (ULTRAM) 50 8-12 tablet by ity of mg tablet 00:00: mouth [place] 00 every 6 Medical (six) Branch hours as needed for Pain (scale 7-10). Indication s: acute pain predniSONE 2020-0 Yes [id number] TAKE ONE Univers 20 mg 8-12 [id number] TABLET BY ity of tablet 00:00: MOUTH [place] 00 DAILY Medical Branch famotidine 2020-0 Yes [id number] 20mg Take 1 Univers 20 mg 8-12 tablet by ity of tablet 00:00: mouth 2 [place] 00 (two) Medical times Branch daily. traMADoL 2020-0 Yes [id number] 50mg Take 1 Univers (ULTRAM) 50 8-12 tablet by ity of mg tablet 00:00: mouth [place] 00 every 6 Medical (six) Branch hours as needed for Pain (scale 7-10). Indication s: acute pain predniSONE 2020-0 Yes [id number] TAKE ONE Univers 20 mg 8-12 [id number] TABLET BY ity of tablet 00:00: MOUTH [place] 00 DAILY Medical Branch famotidine 2020-0 Yes [id number] 20mg Take 1 Univers 20 mg 8-12 tablet by ity of tablet 00:00: mouth 2 (two) Medical times Branch daily. traMADoL 2020-0 Yes [id number] 50mg Take 1 Univers (ULTRAM) 50 8-12 tablet by ity of mg tablet 00:00: mouth [place] 00 every 6 Medical (six) Branch hours as needed for Pain (scale 7-10). Indication s: acute pain predniSONE 2020-0 Yes [id number] TAKE ONE Univers 20 mg 8-12 [id number] TABLET BY ity of tablet 00:00: MOUTH [place] 00 DAILY Medical Branch famotidine 2020-0 Yes [id number] 20mg Take 1 [facility] 20 mg 8-12 tablet by ity of tablet 00:00: mouth 2 [place] 00 (two) Medical times Branch daily. traMADoL 1-0 Yes [id number] 50mg Take 1 [facility] (ULTRAM) 50 8-12 tablet by ity of mg tablet 00:00: mouth [place] 00 every 6 Medical (six) Branch hours as needed for Pain (scale 7-10). Indication s: acute pain predniSONE 2020-0 Yes [id number] TAKE ONE [facility] 20 mg 8-12 [id number] TABLET BY ity of tablet 00:00: MOUTH [place] 00 DAILY Medical Branch famotidine 2020-0 Yes [id number] 20mg Take 1 [facility] 20 mg 8-12 tablet by ity of tablet 00:00: mouth 2 (two) Medical times Branch daily. traMADoL 2020-0 Yes [id number] 50mg Take 1 [facility] (ULTRAM) 50 8-12 tablet by ity of mg tablet 00:00: mouth [place] 00 every 6 Medical (six) Branch hours as needed for Pain (scale 7-10). Indication s: acute pain predniSONE 2020-0 Yes [id number] TAKE ONE [facility] 20 mg 8-12 [id number] TABLET BY ity of tablet 00:00: MOUTH 00 DAILY Medical Branch famotidine 2020-0 Yes [id number] 20mg Take 1 [facility] 20 mg 8-12 tablet by ity of tablet 00:00: mouth 2 [place] (two) Medical times Branch daily. traMADoL 2020-0 Yes [id number] 50mg Take 1 [facility] (ULTRAM) 50 8-12 tablet by ity of mg tablet 00:00: mouth [place] 00 every 6 Medical (six) Branch hours as needed for Pain (scale 7-10). Indication s: acute pain predniSONE 2020-0 Yes [id number] TAKE ONE [facility] 20 mg 8-12 [id number] TABLET BY ity of tablet 00:00: MOUTH [place] 00 DAILY Medical Branch famotidine 2020-0 Yes [id number] 20mg Take 1 [facility] 20 mg 8-12 tablet by ity of tablet 00:00: mouth 2 [place] (two) Medical times Branch daily. cephALEXin 2020-0 202- No [id number] 500mg Take 1 [facility] (KEFLEX) 8-12 08-24 [id number] capsule by it y of 500 mg [...] 8-05 ity of tablet 00:00: Medical Branch mirtazapine 2020-0 Yes [facility] 7.5 mg 7-29 ity of tablet 00:00: Medical Branch omeprazole 1-0 Yes [facility] 40 mg 7-29 ity of capsule 00:00: Medical Branch mirtazapine 2020-0 Yes [facility] 7.5 mg 7-29 ity of tablet 00:00: [place] [address] Medical Branch omeprazole 2021-0 Yes [facility] 40 mg 7-29 ity of capsule 00:00: [place] [address] Medical Branch mirtazapine 202-0 Yes Un[facility] s 7.5 mg 7-29 ity of tablet 00:00: [place] [address] Medical Branch omeprazole 2021-0 Yes [facility] 40 mg 7-29 ity of capsule 00:00: [place] [address] Medical Branch mirtazapine 2020-0 Yes Un[facility] s 7.5 mg 7-29 ity of tablet 00:00: [place] [address] Medical Branch omeprazole 202-0 Yes [facility] 40 mg 7-29 ity of capsule 00:00: [place] [address] Medical Branch mirtazapine 2020-0 Yes Univer s 7.5 mg 7-29 ity of tablet 00:00: [place] [address] Medical Branch omeprazole 202-0 Yes [facility] 40 mg 7-29 ity of capsule 00:00: [address] Branch mirtazapine 2020-0 Yes Univer s 7.5 mg 7-29 ity of tablet 00:00: [place] [address] Medical Branch omeprazole 2021-0 Yes [facility] 40 mg 7-29 ity of capsule 00:00: [place] [address] Medical Branch mirtazapine 2020-0 Yes Un[facility] s 7.5 mg 7-29 ity of tablet 00:00: [place] [address] Medical Branch omeprazole 2021-0 Yes [facility] 40 mg 7-29 ity of capsule 00:00: [place] [address] Medical Branch mirtazapine 202-0 Yes Un[facility] s 7.5 mg 7-29 ity of tablet 00:00: [place] [address] Medical Branch omeprazole 2021-0 Yes [facility] 40 mg 7-29 ity of capsule 00:00: [place] [address] Medical Branch cyclobenzap 2020-0 Yes Univer s rine 10 mg 7-27 ity of tablet 00:00: [place] [address] Medical Branch cyclobenzap 2020-0 Yes Univer s rine 10 mg 7-27 ity of tablet 00:00: [place] [address] Medical Branch cyclobenzap 2020-0 Yes Univer s rine 10 mg 7-27 ity of tablet 00:00: [place] [address] Medical Branch cyclobenzap 2020-0 Yes Univer s rine 10 mg 7-27 ity of tablet 00:00: [place] 00 Medical Branch cyclobenzap 2020-0 Yes Univer s rine 10 mg 7-27 ity of tablet 00:00: [place] 00 Medical Branch cyclobenzap 2020-0 Yes Univer s rine 10 mg 7-27 ity of tablet 00:00: [place] 00 Medical Branch cyclobenzap 2020-0 Yes Univer s rine 10 mg 7-27 ity of tablet 00:00: [place] 00 Medical Branch cyclobenzap 2020-0 Yes Univer s rine 10 mg 7-27 ity of tablet 00:00: [place] 00 Medical Branch doxepin 100 2020-0 Yes Univer s mg capsule 7-19 ity of 00:00: [place] 00 Medical Branch doxepin 100 2020-0 Yes Un[facility] s mg capsule 7-19 ity of 00:00: [place] 00 Medical Branch doxepin 100 2020-0 Yes Un[facility] s mg capsule 7-19 ity of 00:00: [place] 00 Medical Branch doxepin 100 2020-0 Yes Un[facility] s mg capsule 7-19 ity of 00:00: [place] 00 Medical Branch doxepin 100 2020-0 Yes Un[facility] s mg capsule 7-19 ity of 00:00: [place] 00 Medical Branch doxepin 100 2020-0 Yes Un[facility] s mg capsule 7-19 ity of 00:00: [place] 00 Medical Branch doxepin 100 2020-0 Yes Un[facility] s mg capsule 7-19 ity of 00:00: [place] 00 Medical Branch doxepin 100 2020-0 Yes Un[facility] s mg capsule 7-19 ity of 00:00: [place] 00 Medical Branch BELSOMRA 20 2020-0 Yes Univer s mg Tab 6-25 ity of 00:00: [place] 00 Medical Branch BELSOMRA 20 2020-0 Yes Univer s mg Tab 6-25 ity of 00:00: [place] 00 Medical Branch BELSOMRA 20 2020-0 Yes Univer s mg Tab 6-25 ity of 00:00: [place] 00 Medical Branch BELSOMRA 20 2020-0 Yes Univer s mg Tab 6-25 ity of 00:00: [place] 00 Medical Branch BELSOMRA 20 2020-0 Yes Univer s mg Tab 6-25 ity of 00:00: [place] 00 Medical Branch BELSOMRA 20 2020-0 Yes Univer s mg Tab 6-25 ity of 00:00: [place] 00 Medical Branch BELSOMRA 20 0 Yes Univer s mg Tab 6-25 ity of 00:00: [place] [facility] BELSOMRA 20 0 Yes Univer s mg Tab 6-25 ity [...] tablet 00 Medical Branch CARVEDILOL 0 Yes [id number] TAKE ONE [facility] 6.25 mg 5-27 TABLET BY ity of tablet 00:00: MOUTH TWICE A Medical DAY WITH Branch MEALS FOR 90 DAYS CARVEDILOL Yes [id number] TAKE ONE [facility] 6.25 mg 5-27 TABLET BY ity of tablet 00:00: MOUTH 00 TWICE A Medical DAY WITH Branch MEALS FOR 90 DAYS CARVEDILOL 0 Yes [id number] TAKE ONE [facility] 6.25 mg 5-27 TABLET BY ity of tablet 00:00: MOUTH [place] 00 TWICE A Medical DAY WITH Branch MEALS FOR 90 DAYS CARVEDILOL 2021-0 Yes [id number] TAKE ONE [facility] 6.25 mg 5-27 TABLET BY ity of tablet 00:00: MOUTH [place] 00 TWICE A Medical DAY WITH Branch MEALS FOR 90 DAYS CARVEDILOL 202-0 Yes [id number] TAKE ONE [facility] 6.25 mg 5-27 TABLET BY ity of tablet 00:00: MOUTH [place] 00 TWICE A Medical DAY WITH Branch MEALS FOR 90 DAYS CARVEDILOL 202-0 Yes [id number] TAKE ONE [facility] 6.25 mg 5-27 TABLET BY ity of tablet 00:00: MOUTH 00 TWICE A Medical DAY WITH Branch MEALS FOR 90 DAYS CARVEDILOL 2020-0 Yes [id number] TAKE ONE [facility] 6.25 mg 5-27 TABLET BY ity of tablet 00:00: MOUTH 00 TWICE A Medical DAY WITH Branch MEALS FOR 90 DAYS CARVEDILOL 2020-0 Yes [id number] TAKE ONE [facility] 6.25 mg 5-27 TABLET BY ity of tablet 00:00: MOUTH 00 TWICE A Medical DAY WITH Branch MEALS FOR 90 DAYS methylPREDN 2020- Yes [id number] Take by [facility] ISolone 07-28 9106 mouth ity of (MEDROL, 00:00: SEE-INSTRU [place] NINI,) 4 mg 00 CTIONS. Medica l tablets follow Branch package directions cetirizine 2019-06 Yes [id number] 10mg Take 1 U nivers 10 mg 2-07 tablet by ity of tablet 00:00: mouth [place] 00 daily. Medical Branch methylPREDN 2019- Yes [id number] [facility] [place] [facility] mouth ity of (MEDROL, 00:00: SEE-INSTRU [place] NINI,) 4 mg 00 CTIONS. Medica l tablets follow Branch package directions cetirizine 2019- Yes [id number] 10mg Take 1 U nivers 10 mg 2-07 tablet by ity of tablet 00:00: mouth [place] 00 daily. Medical Branch methylPREDN 2019- Yes [id number] Take by [facility] ISolone 2 9106 mouth ity of (MEDROL, 00:00: SEE-INSTRU [place] NINI,) 4 mg 00 CTIONS. Medica l tablets follow Branch package directions cetirizine 2019-06 Yes [id number] 10mg Take 1 U nivers 10 mg 2-07 tablet by ity of tablet 00:00: mouth [place] 00 daily. Medical Branch methylPREDN 2019-06 Yes [id number] Take by [facility] ISolone 2-07 9106 mouth ity of (MEDROL, 00:00: SEE-INSTRU [place] NINI,) 4 mg 00 CTIONS. Medica l tablets follow Branch package directions cetirizine 2019-06 Yes [id number] 10mg Take 1 U nivers 10 mg 2-07 tablet by ity of tablet 00:00: mouth [place] 00 daily. Medical Branch methylPREDN 2019-06 Yes [id number] Take by [facility] ISolone 207 mouth ity of (MEDROL, 00:00: SEE-INSTRU [place]INI,) 4 mg 00 CTIONS. Medica l tablets follow Branch package directions cetirizine 2019-06 Yes [id number] 10mg Take 1 U nivers 10 mg 2-07 tablet by ity of tablet 00:00: mouth [place] 00 daily. Medical Branch methylPREDN 2019-06 Yes [id number] Take by [facility] ISolone 2-07 mouth ity of (MEDROL, 00:00: SEE-INSTRU [place]INI,) 4 mg 00 CTIONS. Medica l tablets follow Branch package directions cetirizine 2019-06 Yes [id number] 10mg Take 1 U nivers 10 mg 2-07 tablet by ity of tablet 00:00: mouth [place] 00 daily. Medical Branch methylPREDN 2019-06 Yes [id number] Take by [facility] ISolone 207 mouth ity of (MEDROL, 00:00: SEE-INSTRU [place]INI,) 4 mg 00 CTIONS. Medica l tablets follow Branch package directions cetirizine 2019-06 Yes [id number] 10mg Take 1 U nivers 10 mg 2-07 tablet by ity of tablet 00:00: mouth [place] 00 daily. Medical Branch methylPREDN 2019-06 Yes [id number] Take by [facility] ISolone 2-07 mouth ity of (MEDROL, 00:00: SEE-INSTRU [place]INI,) 4 mg 00 CTIONS. Medica l tablets follow Branch package directions cetirizine 2019-06 Yes [id number] 10mg Take 1 U nivers 10 mg 2-07 tablet by ity of tablet 00:00: mouth [place] 00 daily. Medical Branch benzonatate 2019-06- No [id number] 100mg Take 1 [facility] (TESSALON 2-07 08-24 capsule by Christoph) 100 00:00: 00:00 mouth 3 [place] mg capsule 00 :00 (three) Medica l times Branch daily as needed for Cough. budesonide Yes [id number] 2{puff} Inhale 2 [facility] formoteroL 8-21 [id number] Puffs 2 ity of (SYMBICORT) 00:00: (two) [place] 160-4.5 00 times Medical mcg/actuati daily. Branch on inhaler budesonide Yes [id number] 2{puff} Inhale 2 [facility] formoteroL 8-21 [id number] Puffs 2 ity of (SYMBICORT) 00:00: (two) [place] 160-4.5 00 times Medical mcg/actuati daily. Branch on inhaler budesonide Yes [id number] 2{puff} Inhale 2 [facility] formoteroL 8-21 [id number] Puffs 2 ity of (SYMBICORT) 00:00: (two) [place] 160-4.5 00 times Medical mcg/actuati daily. Branch on inhaler budesonide Yes [id number] 2{puff} Inhale 2 [facility] formoteroL 8-21 [id number] Puffs 2 ity of (SYMBICORT) 00:00: (two) [place] 160-4.5 00 times Medical mcg/actuati daily. Branch on inhaler budesonide Yes [id number] 2{puff} Inhale 2 [facility] formoteroL 8-21 [id number] Puffs 2 ity of (SYMBICORT) 00:00: (two) [place] 160-4.5 00 times Medical mcg/actuati daily. Branch on inhaler budesonide Yes [id number] 2{puff} Inhale 2 [facility] formoteroL 8-21 [id number] Puffs 2 ity of (SYMBICORT) 00:00: (two) [place] 160-4.5 00 times Medical mcg/actuati daily. Branch on inhaler budesonide Yes [id number] 2{puff} Inhale 2 [facility] formoteroL 8-21 [id number] Puffs 2 ity of (SYMBICORT) 00:00: (two) [place] 160-4.5 00 times Medical mcg/actuati daily. Branch on inhaler budesonide- 2020-0 Yes [id number] 2{puff} Inhale 2 [facility] formoteroL 02-08 [id number] Puffs 2 ity of (SYMBICORT) 00:00: (two) [place] 160-4.5 00 times Medical mcg/actuati daily. Branch on inhaler clonazePAM 2020-0 Yes 1mg Take 1 mg Un kizzy (KLONOPIN) 5-20 by mouth ity o f 1 mg tablet 14:46: daily. [address] vit A/vit 2020-0 Yes Take by Unive rs C/vit 5-20 mouth. ity of E/zinc/donell 14:46: [facility] ([place] [address] Medical AREDS ORAL) Branch clonazePAM 2020-0 Yes 1mg Take 1 mg Un kizzy (KLONOPIN) 5-20 by mouth ity o f 1 mg tablet 14:46: daily. [address] vit A/vit 2020-0 Yes Take by Unive rs C/vit 5-20 mouth. ity of E/zinc/donell 14:46: [facility] ([place] [address] Medical AREDS ORAL) Branch clonazePAM 2020-0 Yes 1mg Take 1 mg Un kizzy (KLONOPIN) 5-20 by mouth ity o f 1 mg tablet 14:46: daily. [address] vit A/vit 2020-0 Yes Take by Unive rs C/vit 5-20 mouth. ity of E/zinc/donell 14:46: [facility] ([place] [address] Medical AREDS ORAL) Branch clonazePAM 2020-0 Yes 1mg Take 1 mg Un kizzy (KLONOPIN) 5-20 by mouth ity o f 1 mg tablet 14:46: daily. [address] vit A/vit 2020-0 Yes Take by Unive rs C/vit 5-20 mouth. ity of E/zinc/donell 14:46: [facility] ([place] [address] Medical AREDS ORAL) Branch clonazePAM 2020-0 Yes 1mg Take 1 mg Un kizzy (KLONOPIN) 5-20 by mouth ity o f 1 mg tablet 09:46: daily. [address] vit A/vit 2020-0 Yes Take by Unive rs C/vit 5-20 mouth. ity of E/zinc/donell 09:46: [facility] ([place] [address] Medical AREDS ORAL) Branch clonazePAM 2020-0 Yes 1mg Take 1 mg Un kizzy (KLONOPIN) 5-20 by mouth ity o f 1 mg tablet 09:46: daily. [address] vit A/vit 2020-0 Yes Take by Unive rs C/vit 5-20 mouth. ity of E/zinc/donell 09:46: [facility] ([place] [address] Medical AREDS ORAL) Branch clonazePAM 2020-0 Yes 1mg Take 1 mg Un kizzy (KLONOPIN) 5-20 by mouth ity o f 1 mg tablet 09:46: daily. [address] vit A/vit 2020-0 Yes Take by Unive rs C/vit 5-20 mouth. ity of E/zinc/donell 09:46: [facility] ([place] [address] Medical AREDS ORAL) Branch clonazePAM 2020-0 Yes 1mg Take 1 mg Un kizzy (KLONOPIN) 5-20 by mouth ity o f 1 mg tablet 09:46: daily. [address] vit A/vit 2020-0 Yes Take by Unive rs C/vit 5-20 mouth. ity of E/zinc/donell 09:46: [facility] ([place] [address] Medical AREDS ORAL) Branch benzonatate 2020-0 2021- No [id number] 100mg Take 1 [facility] (TESSALON 5-20 08-24 capsule by ity anthony HERNANDEZ) 100 00:00: 00:00 mouth 3 [place] mg capsule 00 :00 (three) Medica l times Branch daily as needed for Cough. budesonide- 2020-0 Yes [id number] 2{puff} Inhale 2 [facility] formoteroL 5-12 Puffs 2 ity of (SYMBICORT) 00:00: (two) [place] 160-4.5 00 times Medical mcg/actuati daily. Branch on inhaler budesonide- 2020-0 Yes [id number] 2{puff} Inhale 2 [facility] formoteroL 5-12 Puffs 2 ity of (SYMBICORT) 00:00: (two) [place] 160-4.5 00 times Medical mcg/actuati daily. Branch on inhaler budesonide- 2020-0 Yes [id number] 2{puff} Inhale 2 [facility] formoteroL 5-12 Puffs 2 ity of (SYMBICORT) 00:00: (two) [place] 160-4.5 00 times Medical mcg/actuati daily. Branch on inhaler budesonide- 2019-0 Yes [id number] 2{puff} Inhale 2 [facility] formoteroL 5-12 Puffs 2 ity of (SYMBICORT) 00:00: (two) [place] 160-4.5 00 times Medical mcg/actuati daily. Branch on inhaler budesonide- 2019-0 Yes [id number] 2{puff} Inhale 2 [facility] formoteroL 5-12 Puffs 2 ity of (SYMBICORT) 00:00: (two) [place] 160-4.5 00 times Medical mcg/actuati daily. Branch on inhaler budesonide- 0 Yes [id number] 2{puff} Inhale 2 [facility] formoteroL 5-12 Puffs 2 ity of (SYMBICORT) 00:00: (two) [place] 160-4.5 00 times Medical mcg/actuati daily. Branch on inhaler budesonide- 0 Yes [id number] 2{puff} Inhale 2 [facility] formoteroL 5-12 Puffs 2 ity of (SYMBICORT) 00:00: (two) [place] 160-4.5 00 times Medical mcg/actuati daily. Branch on inhaler budesonide- 0 Yes [id number] 2{puff} Inhale 2 [facility] formoteroL 5-12 Puffs 2 ity of (SYMBICORT) 00:00: (two) [place] 160-4.5 00 times Medical mcg/actuati daily. Branch on inhaler albuterol 2019-0 Yes [id number] 2{puff} Inhale 2 [facility] 90 4-03 Puffs ity of mcg/actuati 00:00: every 6 [place] on inhaler 00 (six) Medical hours as Branch needed for Wheezing or Shortness of Breath. albuterol 2019-0 Yes [id number] 2{puff} Inhale 2 [facility] 90 4-03 Puffs ity of mcg/actuati 00:00: every 6 [place] on inhaler 00 (six) Medical hours as Branch needed for Wheezing or Shortness of Breath. albuterol Yes [id number] 2{puff} Inhale 2 [facility] 90 4-03 Puffs ity of mcg/actuati 00:00: every 6 [place] on inhaler 00 (six) Medical hours as Branch needed for Wheezing or Shortness of Breath. albuterol Yes [id number] 2{puff} Inhale 2 [facility] 90 4-03 Puffs ity of mcg/actuati 00:00: every 6 [place] on inhaler 00 (six) Medical hours as Branch needed for Wheezing or Shortness of Breath. albuterol Yes [id number] 2{puff} Inhale 2 [facility] 90 4-03 Puffs ity of mcg/actuati 00:00: every 6 [place] on inhaler 00 (six) Medical hours as Branch needed for Wheezing or Shortness of Breath. albuterol Yes [id number] 2{puff} Inhale 2 [facility] 90 4-03 Puffs ity of mcg/actuati 00:00: every 6 [place] on inhaler 00 (six) Medical hours as Branch needed for Wheezing or Shortness of Breath. albuterol Yes [id number] 2{puff} Inhale 2 [facility] 90 4-03 Puffs ity of mcg/actuati 00:00: every 6 [place] on inhaler 00 (six) Medical hours as Branch needed for Wheezing or Shortness of Breath. albuterol Yes [id number] 2{puff} Inhale 2 [facility] 90 4-03 Puffs ity of mcg/actuati 00:00: every 6 [place] on inhaler 00 (six) Medical hours as Branch needed for Wheezing or Shortness of Breath. traMADol 50 2019-0 Yes [id number] 50mg Take 1 U nivers mg tablet 9-16 tablet by ity o f 00:00: mouth [place] 00 every 6 Medical (six) Branch hours as needed for Pain (scale 4-6). ibuprofen 2019-0 Yes [id number] 800mg Take 1 Un kizzy 800 mg 9-16 tablet by ity of tablet 00:00: mouth 3 [place] 00 (three) Medical times Branch daily with meals. ranitidine 2019-0 Yes [id number] 150mg Take 1 U nivers 150 mg 9-16 tablet by ity of tablet 00:00: mouth 2 00 (two) Medical times Branch daily. traMADol 50 2019-0 Yes [id number] 50mg Take 1 U nivers mg tablet 9-16 tablet by ity o f 00:00: mouth [place] 00 every 6 Medical (six) Branch hours as needed for Pain (scale 4-6). ibuprofen 2019-0 Yes [id number] 800mg Take 1 Un kizzy 800 mg 9-16 tablet by ity of tablet 00:00: mouth 3 00 (three) Medical times Branch daily with meals. ranitidine 2019-0 Yes [id number] 150mg Take 1 U nivers 150 mg 9-16 tablet by ity of tablet 00:00: mouth 2 00 (two) Medical times Branch daily. traMADol 50 2018-0 Yes [id number] 50mg Take 1 U nivers mg tablet 9-16 tablet by ity o f 00:00: mouth [place] 00 every 6 Medical (six) Branch hours as needed for Pain (scale 4-6). ibuprofen 2018-0 Yes [id number] 800mg Take 1 Un kizzy 800 mg 9-16 tablet by ity of tablet 00:00: mouth (three) Medical times Branch daily with meals. ranitidine 2019-0 Yes [id number] 150mg Take 1 U nivers 150 mg 9-16 tablet by ity of tablet 00:00: mouth 2 (two) Medical times Branch daily. traMADol 50 2018-0 Yes [id number] 50mg Take 1 U nivers mg tablet 9-16 tablet by ity o f 00:00: mouth [place] 00 every 6 Medical (six) Branch hours as needed for Pain (scale 4-6). ibuprofen 2019-0 Yes [id number] 800mg Take 1 Un kizzy 800 mg 9-16 tablet by ity of tablet 00:00: mouth 3 (three) Medical times Branch daily with meals. ranitidine 2019-0 Yes [id number] 150mg Take 1 U nivers 150 mg 9-16 tablet by ity of tablet 00:00: mouth 2 (two) Medical times Branch daily. traMADol 50 2019-0 Yes [id number] 50mg Take 1 U nivers mg tablet 9-16 tablet by ity o f 00:00: mouth [place] 00 every 6 Medical (six) Branch hours as needed for Pain (scale 4-6). ibuprofen 2019-0 Yes [id number] 800mg Take 1 Un kizzy 800 mg 9-16 tablet by ity of tablet 00:00: mouth 3 (three) Medical times Branch daily with meals. ranitidine 2019-0 Yes [id number] 150mg Take 1 U nivers 150 mg 9-16 tablet by ity of tablet 00:00: mouth 2 (two) Medical times Branch daily. traMADol 50 2018-0 Yes [id number] 50mg Take 1 U nivers mg tablet 9-16 tablet by ity o f 00:00: mouth [place] 00 every 6 Medical (six) Branch hours as needed for Pain (scale 4-6). ibuprofen 2018-0 Yes [id number] 800mg Take 1 Un kizzy 800 mg 9-16 tablet by ity of tablet 00:00: mouth 3 (three) Medical times Branch daily with meals. ranitidine 2018-0 Yes [id number] 150mg Take 1 U nivers 150 mg 9-16 tablet by ity of tablet 00:00: mouth (two) Medical times Branch daily. traMADol 50 2018-0 Yes [id number] 50mg Take 1 U nivers mg tablet 9-16 tablet by ity o f 00:00: mouth 00 every 6 Medical (six) Branch hours as needed for Pain (scale 4-6). ibuprofen 2018-0 Yes [id number] 800mg Take 1 Un kizzy 800 mg 9-16 tablet by ity of tablet 00:00: mouth 3 (three) Medical times Branch daily with meals. ranitidine 2018-0 Yes [id number] 150mg Take 1 U nivers 150 mg 9-16 tablet by ity of tablet 00:00: mouth 2 (two) Medical times Branch daily. traMADol 50 2018-0 Yes [id number] 50mg Take 1 [facility] mg tablet 9-16 [id number] tablet by ity of 00:00: mouth [place] 00 every 6 Medical (six) Branch hours as needed for Pain (scale 4-6). ibuprofen 2019-0 Yes [id number] 800mg Take 1 [facility] 800 mg 9-16 [id number] tablet by ity of tablet 00:00: mouth 3 (three) Medical times Branch daily with meals. ranitidine 2019-0 Yes [id number] 150mg Take 1 [facility] 150 mg 9-16 [id number] tablet by ity of tablet 00:00: mouth 2 [place] 00 (two) Medical times Branch daily. cetirizine Yes [id number] 10mg Take 1 U nivers 10 mg 9-13 tablet by ity of tablet 00:00: mouth [place] 00 daily. Medical Branch cetirizine Yes [id number] 10mg Take 1 U nivers 10 mg 9-13 tablet by ity of tablet 00:00: mouth [place] 00 daily. Medical Branch cetirizine Yes [id number] 10mg Take 1 U nivers 10 mg 9-13 tablet by ity of tablet 00:00: mouth [place] 00 daily. Medical Branch cetirizine Yes [id number] 10mg Take 1 U nivers 10 mg 9-13 tablet by ity of tablet 00:00: mouth [place] 00 daily. Medical Branch cetirizine Yes [id number] 10mg Take 1 U nivers 10 mg 9-13 tablet by ity of tablet 00:00: mouth [place] 00 daily. Medical Branch cetirizine Yes [id number] 10mg Take 1 U nivers 10 mg 9-13 tablet by ity of tablet 00:00: mouth [place] 00 daily. Medical Branch cetirizine Yes [id number] 10mg Take 1 U nivers 10 mg 9-13 tablet by ity of tablet 00:00: mouth [place] 00 daily. Medical Branch cetirizine Yes [id number] 10mg Take 1 U nivers 10 mg [...] FIRST DOSE IN THE MORNING fluticasone Yes [id number] 2{spray Use 2 [facility] 50 5-08 } Sprays in ity of mcg/actuati 00:00: each [place] on nasal 00 nostril 2 Medica l spray (two) Branch times daily. montelukast Yes [id number] 10mg Take 1 [facility] 10 mg 5-08 tablet by ity of tablet 00:00: mouth [place] 00 daily. [facility] Branch fluticasone Yes [id number] 2{spray Use 2 Univers 50 5-08 } Sprays in ity of mcg/actuati 00:00: each [place] on nasal 00 nostril 2 Medica l spray (two) Branch times daily. montelukast Yes [id number] 10mg Take 1 [facility] 10 mg 5-08 tablet by ity of tablet 00:00: mouth [place] 00 daily. [facility] Branch fluticasone Yes [id number] 2{spray Use 2 [facility] 50 5-08 } Sprays in ity of mcg/actuati 00:00: each [place] on nasal 00 nostril 2 Medica l spray (two) Branch times daily. montelukast Yes [id number] 10mg Take 1 [facility] 10 mg 5-08 tablet by ity of tablet 00:00: mouth [place] 00 daily. [facility] Branch fluticasone Yes [id number] 2{spray Use 2 [facility] 50 5-08 } Sprays in ity of mcg/actuati 00:00: each [place] on nasal 00 nostril 2 Medica l spray (two) Branch times daily. montelukast Yes [id number] 10mg Take 1 [facility] 10 mg 5-08 tablet by ity of tablet 00:00: mouth [place] 00 daily. Medical Branch fluticasone Yes [id number] 2{spray Use 2 [facility] 50 5-08 } Sprays in ity of mcg/actuati 00:00: each [place] on nasal 00 nostril 2 Medica l spray (two) Branch times daily. montelukast Yes [id number] 10mg Take 1 [facility] 10 mg 5-08 tablet by ity of tablet 00:00: mouth [place] 00 daily. Medical Branch fluticasone Yes [id number] 2{spray Use 2 [facility] 50 5-08 } Sprays in ity of mcg/actuati 00:00: each on nasal 00 nostril 2 Medica l spray (two) Branch times daily. montelukast Yes [id number] 10mg Take 1 [facility] 10 mg 5-08 tablet by ity of tablet 00:00: mouth [place] 00 daily. Medical Branch fluticasone Yes [id number] 2{spray Use 2 [facility] 50 5-08 } Sprays in ity of mcg/actuati 00:00: each [place] on nasal 00 nostril 2 Medica l spray (two) Branch times daily. montelukast Yes [id number] 10mg Take 1 [facility] 10 mg 5-08 tablet by ity of tablet 00:00: mouth [place] 00 daily. Medical Branch fluticasone Yes [id number] 2{spray Use 2 [facility] 50 5-08 } Sprays in ity of mcg/actuati 00:00: each [place] on nasal 00 nostril 2 Medica l spray (two) Branch times daily. montelukast Yes [id number] 10mg Take 1 [facility] 10 mg 5-08 tablet by ity of tablet 00:00: mouth [place] 00 daily. Medical Branch Cholecalcif Yes [id number] 5000U Take 1 [facility] [place], 2-25 tablet by ity of Vitamin D3, 00:00: mouth [place] (VITAMIN 00 daily. Medical D3) 5,000 Take with Branc h unit tablet food. Cholecalcif 2019-0 Yes [id number] 5000U Take 1 [facility], 2-25 tablet by ity of Vitamin D3, 00:00: mouth [place] (VITAMIN 00 daily. Medical D3) 5,000 Take with Branc h unit tablet food. Cholecalcif 2019-0 Yes [id number] 5000U Take 1 [facility], 2-25 tablet by ity of Vitamin D3, 00:00: mouth [place] (VITAMIN 00 daily. Medical D3) 5,000 Take with Branc h unit tablet food. Cholecalcif 2019-0 Yes [id number] 5000U Take 1 [facility], 2-25 tablet by ity of Vitamin D3, 00:00: mouth [place] (VITAMIN 00 daily. Medical D3) 5,000 Take with Branc h unit tablet food. Cholecalcif 2019-0 Yes [id number] 5000U Take 1 [facility], 2-25 tablet by ity of Vitamin D3, 00:00: mouth [place] (VITAMIN 00 daily. Medical D3) 5,000 Take with Branc h unit tablet food. Cholecalcif 2019-0 Yes [id number] 5000U Take 1 [facility], 2-25 tablet by ity of Vitamin D3, 00:00: mouth [place] (VITAMIN 00 daily. Medical D3) 5,000 Take with Branc h unit tablet food. Cholecalcif 2019-0 Yes [id number] 5000U Take 1 [facility], 2-25 tablet by ity of Vitamin D3, 00:00: mouth [place] (VITAMIN 00 daily. Medical D3) 5,000 Take with Branc h unit tablet food. Cholecalcif 2019-0 Yes [id number] 5000U Take 1 [facility], 2-25 tablet [...] by ity of tablet 00:00: mouth 2 [place] 00 (two) Medical times Branch daily. SERTraline 2018-0 Yes 100mg Take 100 Un kizzy 100 mg 9-26 mg by ity of tablet 00:00: mouth 2 [place] 00 (two) Medical times Branch daily. Immunizations Ordered Filled Immunization Date Status Comments [facility] e Immunization Name Name SARS-COV-2 COVID-19 2020-08-19 Completed Unive rsity of PFIZER VACCINE 00:00:00 [facility] SARS-COV-2 COVID-19 2020-08-19 Completed Unive rsity of PFIZER VACCINE 00:00:00 [facility] SARS-COV-2 COVID-19 2020-08-19 Completed Unive rsity of PFIZER VACCINE 00:00:00 [facility] SARS-COV-2 COVID-19 2020-08-19 Completed Unive rsity of PFIZER VACCINE 00:00:00 [facility] SARS-COV-2 COVID-19 2020-08-19 Completed Unive rsity of PFIZER VACCINE 00:00:00 [facility] SARS-COV-2 COVID-19 2020-08-19 Completed Unive rsity of PFIZER VACCINE 00:00:00 [facility] SARS-COV-2 COVID-19 2020-08-19 Completed Unive rsity of PFIZER VACCINE 00:00:00 [facility] SARS-COV-2 COVID-19 2020-08-19 Completed Unive rsity of PFIZER VACCINE 00:00:00 [facility] SARS-COV-2 COVID-19 2020-07-16 Completed Unive rsity of PFIZER VACCINE 00:00:00 [facility] SARS-COV-2 COVID-19 2020-07-16 Completed Unive rsity of PFIZER VACCINE 00:00:00 [facility] SARS-COV-2 COVID-19 2020-07-16 Completed Unive rsity of PFIZER VACCINE 00:00:00 [facility] SARS-COV-2 COVID-19 2020-07-16 Completed Unive rsity of PFIZER VACCINE 00:00:00 [facility] SARS-COV-2 COVID-19 2020-07-16 Completed Unive rsity of PFIZER VACCINE 00:00:00 [facility] SARS-COV-2 COVID-19 2020-07-16 Completed Unive rsity of PFIZER VACCINE 00:00:00 [facility] SARS-COV-2 COVID-19 2020-07-16 Completed Unive rsity of PFIZER VACCINE 00:00:00 [facility] SARS-COV-2 COVID-19 2020-07-16 Completed Unive rsity of PFIZER VACCINE 00:00:00 [facility] Influenza Virus 2018-03-24 Completed Universit y of Vaccine Quad IM 3+ 00:00:00 [facility] Pneumococcal 2018-03-24 Completed University o f Polysaccharide, 00:00:00 [place] Med ical PPSV23 (PNEUMOVAX) Branch Influenza Virus 2018-03-24 Completed Universit y of Vaccine Quad IM 3+ 00:00:00 [facility] Pneumococcal 2018-03-24 Completed University o f Polysaccharide, 00:00:00 [place] Med ical PPSV23 (PNEUMOVAX) Branch Influenza Virus 2018-03-24 Completed Universit y of Vaccine Quad IM 3+ 00:00:00 [facility] Pneumococcal 2018-03-24 Completed University o f Polysaccharide, 00:00:00 [place] Med ical PPSV23 (PNEUMOVAX) Branch Influenza Virus 2018-03-24 Completed Universit y of Vaccine Quad IM 3+ 00:00:00 [facility] Pneumococcal 2018-03-24 Completed University o f Polysaccharide, 00:00:00 [place] Med ical PPSV23 (PNEUMOVAX) Branch Influenza Virus 2018-03-24 Completed Universit y of Vaccine Quad IM 3+ 00:00:00 [facility] Pneumococcal 2018-03-24 Completed University o f Polysaccharide, 00:00:00 [place] Med ical PPSV23 (PNEUMOVAX) Branch Influenza Virus 2018-03-24 Completed Universit y of Vaccine Quad IM 3+ 00:00:00 [facility] Pneumococcal 2018-03-24 Completed University o f Polysaccharide, 00:00:00 [place] Med ical PPSV23 (PNEUMOVAX) Branch Influenza Virus 2018-03-24 Completed Universit y of Vaccine Quad IM 3+ 00:00:00 [facility] Pneumococcal 2018-03-24 Completed University o f Polysaccharide, 00:00:00 [place] Med ical PPSV23 (PNEUMOVAX) Branch Influenza Virus 2018-03-24 Completed Universit y of Vaccine Quad IM 3+ 00:00:00 [facility] Branch Pneumococcal 2018-03-24 Completed University o f Polysaccharide, 00:00:00 [facility] ical PPSV23 (PNEUMOVAX) Branch TDAP 2017-01-19 Completed [facility] Com[facility] 2017-01[facility] Completed [facility] 2017-01-19 Completed [facility] 2017-01-19 Completed [facility] 2017-01[facility] Completed [facility] 2017-01[facility] Completed University of 00:00:00 [facility] Zoster(Zostavax)( 2016-05-27 Completed Unive rsity of ingles) 00:00:00 [facility] Zoster(Zostavax)( 2016-05-27 Completed Unive rsity of ingles) 00:00:00 [facility] Zoster(Zostavax)( 2016-05-27 Completed Unive rsity of ingles) 00:00:00 [facility] Zoster(Zostavax)( 2016-05-27 Completed Unive rsity of ingles) 00:00:00 [facility] Zoster(Zostavax)( 2016-05-27 Completed Unive rsity of ingles) 00:00:00 [facility] Zoster(Zostavax)( 2016-05-27 Completed Unive rsity of ingles) 00:00:00 [facility] Zoster(Zostavax)( 2016-05-27 Completed Unive rsity of ingles) 00:00:00 [facility] Zoster(Zostavax)( 2016-05-27 Completed Unive rsity of ingles) 00:00:00 [facility] Pneumococcal 2016-05-14 Completed University o f Polysaccharide, 00:00:00 [facility] ical PPSV23 (PNEUMOVAX) Branch Pneumococcal 2016-05-14 Completed [...] 2016-05-14 Completed University o f Polysaccharide, 00:00:00 [place] Med ical PPSV23 (PNEUMOVAX) Branch Vital Signs Vital Name Observation Time Observation Value Comments Source Oxygen saturation in 2022-04-30 06:00:00 99 /min [facility] Arterial blood by [facility] Pulse oximetry Branch Systolic blood 2022-04-30 06:00:00 164 mm[Hg] Univer sity [facility] Diastolic blood 2022-04-30 06:00:00 88 [facility]Hg[facility] 2022-04-30 06:00:00 72 /min [facility] Respiratory rate 2022-04-30 06:00:00 18 /min [facility] Body temperature 2022-04-30 03:31:00 37.56 Chelle [facility] Body height 2022-04-30 03:31:00 172.7 cm [facility] Body weight 2022-04-30 03:31:00 99.791 kg [facility] BMI 2022-04-30 03:31:00 33.45 kg/m2 [facility] Systolic blood 2021-10-15 21:13:00 162 mm[Hg] Univer sity of [facility] Diastolic blood 2021-10-15 21:13:00 82 mm[Hg] Unive rsity [facility] Heart rate 2021-10-15 21:13:00 88 /min Universi ty of [place] [facility] Body temperature 2021-10-15 21:13:00 37.22 Chelle Univ ersity of [place] [facility] Respiratory rate 2021-10-15 21:13:00 19 /min Univ ersity of [place] [facility] Body height 2021-10-15 21:13:00 172.7 cm Universi ty of [place] [facility] Body weight 2021-10-15 21:13:00 90.719 kg Universi ty of [place] [facility] BMI 2021-10-15 21:13:00 30.41 kg/m2 Universi ty of [place] [facility] Oxygen saturation in 2021-10-15 21:13:00 97 /min University of Arterial blood by [place] [facility]i dave Pulse oximetry Branch Systolic blood 2021-08-30 15:57:00 127 mm[Hg] Univer sity of pressure [place] [facility] Diastolic blood 2021-08-30 15:57:00 98 mm[Hg] Unive rsity of pressure [place] [facility] Heart rate 2021-08-30 15:57:00 73 /min Universi ty of [place] [facility] Respiratory rate 2021-08-30 15:57:00 18 /min Univ ersity of [place] [facility] Body weight 2021-08-30 15:57:00 99.791 kg Universi ty of [place] [facility] BMI 2021-08-30 15:57:00 33.45 kg/m2 Universi ty of [place] [facility] Oxygen saturation in 2021-08-30 15:57:00 98 /min University of Arterial blood by [facility] [place] [facility] dave Pulse oximetry Branch Systolic blood 2021-06-24 14:15:00 165 mm[Hg] Univer sity of pressure [place] [facility] Diastolic blood 2021-06-24 14:15:00 82 mm[Hg] Unive rsity of pressure [place] [facility] Heart rate 2021-06-24 14:15:00 95 /min Universi ty [facility] [place] [facility] Body temperature 2021-06-24 14:15:00 37.33 Chelle Univ ersity of [place] [facility] Respiratory rate 2021-06-24 14:15:00 20 /min Univ ersity of [place] [facility] Body weight 2021-06-24 14:15:00 99.791 kg Universi ty of [place] [facility] BMI 2021-06-24 14:15:00 33.45 kg/m2 Universi ty of [place] [facility] Oxygen saturation in 2021-06-24 14:15:00 98 /min University of Arterial blood by [place] Audanika [facility] Pulse oximetry Branch Heart rate 2021-02-14 05:30:00 106 /min Universi ty of [place] [facility] Respiratory rate 2021-02-14 05:30:00 16 /min Univ ersity of [place] [facility] Systolic blood 2021-02-14 05:00:00 151 mm[Hg] Univer sity of pressure [place] [facility] Diastolic blood 2021-02-14 05:00:00 90 mm[Hg] Unive rsity of pressure [place] [facility] Oxygen saturation in 2021-02-14 05:00:00 97 /min University of Arterial blood by [facility] Pulse oximetry Branch Body temperature 2021-02-14 00:57:00 37.33 Chelle Univ ersity of [place] [facility] Body weight 2021-02-14 00:57:00 100.699 kg Universi ty of [place] [facility] BMI 2021-02-14 00:57:00 33.75 kg/m2 Universi ty of [place] [facility] Systolic blood 2021-02-13 11:30:00 164 mm[Hg] Univer sity of pressure [place] [facility] Diastolic blood 2021-02-13 11:30:00 85 mm[Hg] Unive rsity of pressure [place] [facility] Heart rate 2021-02-13 11:30:00 91 /min Universi ty of [place] [facility] Respiratory rate 2021-02-13 11:30:00 16 /min Univ ersity of [place] [facility] Oxygen saturation in 2021-02-13 11:30:00 96 /min University of Arterial blood by [facility] Pulse oximetry Branch Body temperature 2021-02-13 05:45:00 36.89 Chelle Univ ersity of [place] [facility] Systolic blood 2021-02-11 14:24:00 139 mm[Hg] Univer sity of pressure [place] [facility] Diastolic blood 2021-02-11 14:24:00 75 mm[Hg] Unive rsity of pressure [place] [facility] Heart rate 2021-02-11 14:19:00 83 /min Universi ty of [place] [facility] Body temperature 2021-02-11 14:19:00 36.83 Chelle Univ ersity [facility] [place] [facility] Respiratory rate 2021-02-11 14:19:00 16 /min [facility] Body height 2021-02-11 14:19:00 172.7 cm [facility] Body weight 2021-02-11 14:19:00 101.016 kg [facility] BMI 2021-02-11 14:19:00 33.86 kg/m2 [facility] Oxygen saturation in 2021-02-11 14:19:00 97 /min [facility] Arterial blood by [facility] Pulse oximetry [place] Procedures Procedure Date / Time Performing Clinician Source Performed EKG-12 LEAD 2022-04-30 06:27:15 Marilyn [facility] TROPONIN I 2022-04-30 05:49:00 Marilyn [facility] XR CHEST 1 VW 2022-04-30 04:16:00 [facility] 2022-04-30 04:00:00 [facility]ilyn [facility] COMP. METABOLIC PANEL 2022-04-30 04:00:00 Kyle Vivas Un [facility] ([id number]) [facility] CBC WITH DIFF 2022-04-30 04:00:00 Kyle Vivas [facility] PROTHROMBIN TIME / INR 2022-04-30 04:00:00 [facility]-B[facility] 2022-04-30 04:00:00 Kyle Vivas [facility] XR FINGERS 2 VW LEFT 2021-10-15 22:06:00 Edd Yuen [facility] NOTICE OF PRIVACY 2021-10-15 21:05:32 Doctor Unassigned, No [facility] PRACTICES Name [facility] CONSENT/REFUSAL FOR 2021-10-15 21:04:51 Doctor Unassigned, No [facility] DIAGNOSIS AND TREATMENT Name [facility] MAGNESIUM 2021-08-30 16:28:00 Nicolette Campbell [facility] COMP. METABOLIC PANEL 2021-08-30 16:28:00 Nicolette Campbell [facility] ([id number]) Medical Branch CBC WITH DIFF 2021-08-30 16:28:00 Nicolette Campbell [facility] URINALYSIS 2021-06-24 14:44:00 Jose Ross [facility] CONSENT/REFUSAL FOR 2021-06-24 14:10:11 Doctor Unassigned, No Un [facility] DIAGNOSIS AND TREATMENT Name Medical Branch XR CHEST 1 VW 2021-02-14 03:23:19 Bertin Sanchez [facility] URINALYSIS 2021-02-14 02:54:00 Bertin Sanchez [facility] URINE DRUG (IMMUNOASSAY) 2021-02-14 02:54:00 Bertin Sanchez Un [facility] nch SCREEN W/O REFLEX TROPONIN I 2021-02-14 01:36:00 Bertin Sanchez [facility] COMP. METABOLIC PANEL 2021-02-14 01:36:00 Bertin Sanchez [facility] ([id number]) Medical Branch CBC WITH DIFF 2021-02-14 01:36:00 Bertin Sanchez [facility] COVID-19 (ID NOW RAPID 2021-02-14 01:26:00 Bertin Sanchez [facility] TESTING) Medical Branch TROPONIN I 2021-02-13 10:56:00 Vishal Agarwal [facility] CT CHEST PULMONARY 2021-02-13 10:28:40 Mallory Lopez [facility] ANGIOGRAM Medical Branch XR CHEST 1 VW 2021-02-13 06:37:29 Mallory Lopez [facility] TROPONIN I 2021-02-13 06:27:00 Mallory Lopez [facility] BASIC METABOLIC PANEL 2021-02-13 06:27:00 Mallory Lopez [facility] (NA, K, CL, CO2, Medical Branch GLUCOSE, BUN, CREATININE, CA) CBC WITH DIFF 2021-02-13 06:27:00 Mallory Lopez [facility] D-DIMER 2021-02-13 06:27:00 Mallory Lopez [facility] N-TERMINAL PRO-BNP 2021-02-13 06:27:00 Mallory Lopez [facility] Plan of Care Planned Activity Planned Date Details Comments Source Future Scheduled 2022-09-24 HEPATITIS B VACCINES [facility] Test 00:55:22 (1 of 3 - Risk 3-dose series) [code = HEPATITIS B VACCINES (1 of 3 - Risk 3-dose series)] Future Scheduled 2022-09-24 SHINGLES VACCINES (1 Met [facility] Test 00:55:22 of 2) [code = SHINGLES VACCINES (1 of 2)] Future Scheduled 2022-09-24 65+ [facility]AL [facility]22 VACCINE (3 - PCV) [code = 65+ PNEUMOCOCCAL VACCINE (3 - PCV)] Future Scheduled 2022-09-24 COVID-19 VACCINE (3 - Me [facility] Test 00:55:22 Booster for Pfizer series) [code = COVID-19 VACCINE (3 - Booster for Pfizer series)] Future Scheduled 2022-09-24 INFLUENZA VACCINE [facility] Test 00:55:22 [code = INFLUENZA VACCINE] Future Scheduled 2022-09-24 Hepatitis C screening [facility] Test 00:55:22 (procedure) [code = 380790392] Future Scheduled 2022-09-24 BREAST CANCER [facility] Test 00:55:22 SCREENING [code = BREAST CANCER SCREENING] Future Scheduled 2022-09-24 COLONOSCOPY SCREENING [facility] Test 00:55:22 [code = COLONOSCOPY SCREENING] Future Scheduled 2022-04-22 Hepatitis C screening [facility] Test 16:30:41 (procedure) [code = [id number]] Future Scheduled 2022-04-22 BREAST CANCER [facility] Test 16:30:41 SCREENING [code = BREAST CANCER SCREENING] Future Scheduled 2022-04-22 COLONOSCOPY SCREENING [facility] Test 16:30:41 [code = COLONOSCOPY SCREENING] Future Scheduled 2022-04-22 HEPATITIS B VACCINES [facility] Test 16:30:41 (1 of 3 - Risk 3-dose series) [code = HEPATITIS B VACCINES (1 of 3 - Risk 3-dose series)] Future Scheduled 2022-04-22 SHINGLES VACCINES (1 Met [facility] Test 16:30:41 of 2) [code = SHINGLES VACCINES (1 of 2)] Future Scheduled 2022-04-22 65+ [facility]OCOCCAL [facility] Test 16:30:41 VACCINE (3 - PCV) [code = 65+ PNEUMOCOCCAL VACCINE (3 - PCV)] Future Scheduled 2022-04-22 COVID-19 VACCINE (3 - Me [facility] Test 16:30:41 Booster for Pfizer series) [code = COVID-19 VACCINE (3 - Booster for Pfizer series)] Future Scheduled 2022-04-22 INFLUENZA VACCINE [facility] Test 16:30:41 [code = INFLUENZA VACCINE] Future Scheduled Hepatitis C screening [facility] Hospital Test (procedure) [code = 794347944] Future Scheduled BREAST CANCER [facility] Test SCREENING [code = BREAST CANCER SCREENING] Future Scheduled COLONOSCOPY SCREENING [facility] Test [code = COLONOSCOPY SCREENING] Future Scheduled [facility]LES [facility]IN[facility] (#[facility] [code = SHINGLES VACCINES (#2)] Future Scheduled INFLUENZA VACCINE [facility] Test [code = INFLUENZA VACCINE] Future Scheduled 65+ [facility]OCOCCAL [facility] Test VACCINE (2 of 2) [code = 65+ PNEUMOCOCCAL VACCINE (2 of 2)] Encounters Start End Encounter Admission Attending Care Care Encounter Source Date/Time Date/Time Type Type Clinicians Facility Department ID 2021-04-21 Emergency [facility] [id number] Univers 18:27:17 ity [facility] 2021-04-21 Emergency [facility] [id number] Univers 18:11:05 ity [facility] 2021-04-21 Emergency [facility] [id number] Univers 16:10:46 ity [facility] 2021-04-21 Emergency [facility] [id number] Univers 14:58:19 ity [facility] 2021-04-21 Emergency [facility] [id number] Univers 14:56:27 ity [facility] 2021-04-18 Emergency [facility] [id number] Univers 22:14:38 ity [facility] 2021-04-18 [facility] [id number] Univers 19:38:58 ity [facility] 2022-06-17 2022-06-17 Jose Guadalupe Ugarte 2.16.840. 2.16.840.1. TAMARC [id number] [facility] 20:30:00 21:00:00 Amor Cabrera 1.418417. 535646.4.6. 4H7 Medical 4.6.1991 [id number] 2022-05-05 2022-05-06 IHC Follow Philipp Liriano 2.16.840. 2.16.840.1. [id number] [facility] 23:00:00 00:00:00 Up 1.919326. 017367.4.6. GFG Medical 4.6.06211 [id number] 2022-04-29 2022-04-30 Emergency X RIDDLE, [facility] ERT [id number] Univers 21:27:00 00:37:00 KYLE corcoran y [facility] 2022-04-29 2022-04-30 Emergency [place], [facility] [id number] Univers 21:27:00 00:37:00 Kyle NOGUEIRA [id number] ity [facility] 4.2.7.2.686 [facility] [id number] [address] 2022-04-20 2022-04-20 IHC Follow Philipp Liriano 2.16.840. 2.16.840.1. [id number] [facility] 18:30:00 19:00:00 Up 1.106645. 802092.4.6. CKK Medical 4.6.11159 [id number] 2022-03-17 2022-03-17 IHC Follow Philipp Liriano 2.16.840. 2.16.840.1. [id number] [facility] 18:00:00 18:30:00 Up 1.844062. 231644.4.6. 8CY Medical 4.6.27429 [id number] 2022-02-19 2022-02-19 IHC Follow Philipp Liriano 2.16.840. 2.16.840.1. [id number] [facility] 15:00:00 16:00:00 Up 1.603059. 424596.4.6. ZKH Medical 4.6.75055 [id number] 2022-01-07 2022-01-07 IHC Philipp Liriano 2.16.840. 2.16.840.1. CLA [id number] [facility] 19:00:00 20:00:00 Initial 1.344082. 691770.4.6. 62W Medical 4.6.87074 [id number] 2022-01-02 2022-01-02 [facility] [id number] [facility] 03:44:00 03:44:00 0715 Medica l Group 2022-01-02 2022-01-02 Outpatient hpham29 [facility] [id number] Devoted 00:00:00 00:00:00 0506 Medica l Group 2021-12-10 2021-12-10 Outpatient hpham29 [facility] [id number] Devoted 07:06:00 07:06:00 0622 Medica l Group 2021-12-08 2021-12-08 Care Bess 2.16.840. 2.16.840.1. CLAC [id number] [facility] 18:00:00 18:30:00 [employer] [place] 1.218595. 876462.4.6. [facility] Medical 4.6.71907 [id number] 2021-10-26 2021-10-26 Care Nishea 2.16.840. 2.16.840.1. CLAC [id number] [facility] 17:00:00 17:30:00 [employer] [place] 1.447271. 141032.4.6. 2AA Medical 4.6.04723 [id number] 2021-10-25 2021-10-25 Care Nishea 2.16.840. 2.16.840.1. CLAC [id number] [facility] 18:30:00 19:00:00 [employer] [place] 1.266393. 223780.4.6. CR2 Medical 4.6.42489 [id number] 2021-10-15 2021-10-15 Emergency X Edd YUEN [facility] ERT [id number] Univers 16:13:00 18:21:00 ity [facility] 2021-10-15 2021-10-15 Emergency Radha, Edd [facility] [id number] Univers 16:13:00 18:21:00 Luna NOGUEIRA 350.1.13.10 i ty of [place] 4.2.7.2.686 [facility] [id number] [address] 2021-10-03 2021-10-03 Outpatient R ERIN [facility] [id number] Univers 18:45:00 18:45:00 JUANITA iraheta o f [facility] 2021-08-31 2021-08-31 Care Fatuma 2.16.840. 2.16.840.1. [facility] [id number] [facility] 19:00:00 19:30:00 Amor Jackson 1.852741. 855954.4.6. [facility] Medical 4.6.30655 [id number] 2021-08-30 2021-08-30 [facility] [id number] Univers 09:58:00 11:52:00 NICOLETTE ityoselyn [facility] 2021-08-30 2021-08-30 [facility] [id number] Univers 09:58:00 11:52:00 Nicolette Ortega JERO 350.1.13.10 i ty of [place] 4.2.7.2.686 [facility] [id number] [address] 2021-06-24 2021-06-24 Emergency X [facility] ERT [id number] Univers 08:18:00 10:03:00 JOSE iraheta [facility] 2021-06-24 2021-06-24 Emergency [facility] [id number] Univers 08:18:00 10:03:00 Jose HUTCHINSNEW 350.1.13.10 i ty of [place] 4.2.7.2.686 [facility] [id number] [address] 2021-06-18 2021-06-18 Outpatient [facility] [id number] [facility] 06:07:00 06:07:00 1229 Medica l Group 2021-02-21 2021-02-21 Emergency ER Nicolás, STLSJFred STLSJM [id number] 09:55:00 09:55:00 Jesse -[id number] Luke s Jesse spencer 2021-02-13 2021-02-14 Emergency Mason, Bertin Marty [facility] 1.2.840 .114 [id number] Univers 19:53:00 00:56:00 Nicolette Campbell 350.1.13.10 ity of [place] 4.2.7.2.686 [facility] [phone] [place] [address] [place] 2021-02-13 2021-02-13 Emergency [facility] 1.2.412.554 [id number] [id number] Univers 00:40:00 07:13:00 Mallory Nogueira 350.1.13.10 ity of [place] 4.2.7.2.686 [facility] [phone] [place] [address] [place] 2021-02-12 2021-02-12 Letter KAROLYN Tyler 1.2.840.114 [id number] Univers 00:00:00 00:00:00 (Out) Janice BOWSER 350.1.13.10 it y of [facility] 4.2.7.2.686 Braulio as [phone] [place] [address] [place] 2021-02-11 2021-02-11 Urgent [facility] 1.2.840.114 [id number] Univers 09:06:50 09:26:50 Care [facility] 350.1.13.10 it y of [place] 4.2.7.2.686 Braulio as Kyrie?Blea [phone] [address] Medical [facility] Building 2021-02-11 2021-02-11 Outpatient R [facility] [id number] Univers 09:00:00 09:00:00 ity [facility] 2021-02-07 2021-02-07 Outpatient R UNKNOWN, [facility] [id number] Univers 14:20:00 14:20:00 ATTENDING ity [facility] 2021-02-03 2021-02-03 Outpatient OWENS[facility]T [facility] 71783-2 021 Devoted 08:30:00 08:30:00 0816 Medica l Group 2021-01-30 2021-01-30 Emergency Agarwal, [facility] 1.2.392.085 [id number] 06:55:00 10:29:00 Vishal Jero 350.1.13.10 [place] 4.2.7.2.686 [place] [phone] 084 2021-01-29 2021-01-30 Emergency [facility], [facility] 1.2.281.184 [id number] 1421 21:35:00 01:50:00 Liana Nogueira 350.1.13.10 [place] 4.2.7.2.686 [place] [id number] 084 2021-01-03 2021-01-03 [facility] [id number] 021 Devoted 05:35:00 05:35:00 0716 Medica l Group 2020-11-20 2020-11-20 Outpatient [facility] 60022-3 021 Devoted 11:00:00 11:00:00 0602 Medica l Group 2020-11-18 2020-11-18 [facility] 1.2.840.114 [id number] 00:00:00 00:00:00 Jerzy Nogueira 350.1.13.10 [place] 4.2.7.2.686 Professio [phone] nal 085 [facility] 2020-11-14 2020-11-14 [facility] 1.2.840.114 [id number] 00:00:00 00:00:00 Sendlawrence BernardHYamini Nogueira 350.1.13.10 [place] 4.2.7.2.686 Professio [phone] nal 059 [facility] 2020-10-16 2020-10-16 [facility] 1.2.840.114 [id number] 13 00:00:00 00:00:00 Jerzy Nogueira 350.1.13.10 [place] 4.2.7.2.686 Professio [id number] nal 085 [facility] 2020-10-01 2020-10-01 Treatment Roy, Cr 1.2.840.1 [id number] Methodi 15:27:18 16:08:34 Beny Richardson 16660.1.[address] 3.430.2.7 Hospit a .3.534558 l .8 2020-10-01 2020-10-01 Travel 1.2.840.1 1.2.578.882 4095 [id number] Methodi 00:00:00 00:00:[address] 3.430.2.7 0.2.7.3.698 Ho spita .3.882069 084.8 l .8 2020-09-19 2020-09-19 Treatment Roy, Cr 1.2.840.1 [id number] 2099 [id number] Methodi 14:47:22 16:15:02 Beny Richardson 73053.1.[address] 3.430.2.7 Hospit a .3.624360 l .8 2020-09-19 2020-09-19 Travel 1.2.840.1 1.2.835.806 3409 275519 Methodi 00:00:00 00:00:[address] 3.430.2.7 0.2.7.3.698 Ho spita .3.745496 084.8 l .8 2020-09-17 2020-09-17 Documentat Dylan 1.2.840.1 [id number] 2 [id number] Methodi 00:00:00 00:00:00 morales Swan 15418.1.[address] 3.430.2.7 Hospit a .3.496945 l .8 2020-09-04 2020-09-04 Treatment Roy, Cr 1.2.840.1 [id number] Methodi 15:21:22 16:38:[address]82.[address] 3.430.2.7 Hospit a .3.881629 l .8 2020-09-04 2020-09-04 Plan of 1.2.840.1 [id number] 6098 Methodi 00:00:00 00:00:[address] Documentat 3.430.2.7 Hos marian ion .3.285561 l .8 2020-09-04 2020-09-04 Travel 1.2.840.1 1.2.896.042 8620 694898 Methodi 00:00:00 00:00:[address] 3.430.2.7 0.2.7.3.698 Ho spita .3.866328 084.8 l .8 2020-08-28 2020-08-28 Treatment Roy, Cr 1.2.840.1 [id number] Methodi 13:52:33 16:45:[address] 3.430.2.7 Hospit a .3.107117 l .8 2020-08-28 2020-08-28 Travel 1.2.840.1 1.2.989.825 7378 105030 Methodi 00:00:00 00:00:[address] 3.430.2.7 0.2.7.3.698 Ho spita .3.019126 084.8 l .8 2020-08-28 2020-08-28 Plan of 1.2.840.1 [id number] 100909 1311 Methodi 00:00:00 00:00:[address] Documentat 3.430.2.7 Hos marian ion .3.708559 l .8 2020-08-20 2020-08-20 Outpatient Harvey SOFIA [facility] [id number] Univers 10:00:00 10:00:00 SENDIL myrtle [facility] 2020-08-20 2020-08-20 Travel 1.2.840.1 1.2.963.865 7811 [id number] Methodi 00:00:00 00:00:[address] 3.430.2.7 0.2.7.3.698 Ho spita .3.334809 084.8 l .8 2020-08-19 2020-08-19 Outpatient Harvey [facility] [id number] Univers 14:00:00 14:00:00 [facility] 2020-08-13 2020-08-13 Travel 1.2.840.1 1.2.940.595 7649 [id number] Methodi 00:00:00 00:00:[address] 3.430.2.7 0.2.7.3.698 Ho spita .3.511573 084.8 l .8 2020-08-06 2020-08-06 Outpatient Harvey [facility] [id number] Univers 11:50:00 11:50:00 [facility] 2020-07-30 2020-07-30 Travel 1.2.840.1 1.2.064.165 5752 337998 Methodi 00:00:00 00:00:[address] 3.430.2.7 0.2.7.3.698 Ho spita .3.668440 084.8 l .8 2020-07-22 2020-07-22 Transcribe Roy, 1.2.840.1 [id number] 024 [id number] Methodi 00:00:00 00:00:[place] [address] 3.430.2.7 Hospit a .3.013940 l .8 2020-07-16 2020-07-16 Outpatient Harvey JULIO [facility] [id number] Univers 11:00:00 11:00:00 [facility] 2020-06-27 2020-06-27 Outpatient JERZY COSME [facility] 10 [id number] Univers 14:20:00 14:20:00 JERZY RANGEL [facility] 2020-06-17 2020-06-17 Urgent [facility] 1.2.840.114 [id number] 18:48:25 19:08:25 Care [facility] 350.1.13.10 [place] 4.2.7.2.686 Professio [phone] nal 0[address] 2020-06-17 2020-06-17 Outpatient R NATHEN [facility] [id number] Univers 19:00:00 19:00:00 GARY ity [facility] 2020-05-27 2020-05-27 Urgent Nathen [facility] 1.2.840.114 [id number] 16:58:39 17:55:24 Care [facility] 350.1.13.10 [place] 4.2.7.2.686 Professio [id number] nal 044 [address] 2020-05-27 2020-05-27 Outpatient R NATHEN [facility] [id number] Univers 17:00:00 17:00:00 [facility] 2020-03-04 2020-03-04 Outpatient R ANGELINA SAEZ [facility] [id number] Univers 11:15:00 11:15:00 ity of [facility] 2020-02-22 2020-02-22 Outpatient R SE ANGELINA [facility] [id number] Univers 14:00:00 14:00:00 ity of [facility] 2020-02-21 2020-02-21 Outpatient R [facility] [id number] Univers 15:00:00 15:00:00 ity of [facility] 2020-02-21 2020-02-21 Outpatient R [facility] [id number] Univers 10:00:00 10:00:00 ity of [facility] 2020-02-16 2020-02-16 Outpatient R ANGELINA SAEZ [facility] [id number] Univers 08:15:00 08:15:00 ity of [facility] 2020-02-15 2020-02-15 Outpatient R BISMARK [facility] [id number] Univers 09:00:00 09:00:00 SENDIL ity [facility] 2020-02-09 2020-02-09 Outpatient R JERZY RANGEL [facility] 10 [id number] Univers 14:40:00 14:40:00 JERZY RANGEL i ty [facility] 2020-01-25 2020-01-25 Outpatient R JERZY RANGEL [facility] 10 [id number] Univers 13:00:00 13:00:00 JERZY RANGEL i ty of [facility] 2020-01-05 2020-01-05 Outpatient R JERZY RANGEL [facility] 10 [id number] Univers 11:40:00 11:40:00 JERZY RANGEL i ty of [facility] 2019-11-08 2019-11-08 Outpatient R [facility] [id number] Univers 10:20:00 10:20:00 ity [facility] 2019-10-05 2019-10-05 Outpatient R JERZY RANGEL [facility] 10 [id number] Univers 11:40:00 11:40:00 JERZY RANGEL i [facility] Results Test Description Test Time Test Comments Results Result Comments Source TROPONIN I 2022-04-30 06:24:06 Test Item Value Reference Range Interpretation Comme nts TROPONIN I (test code = 0.002 ng/mL See_Comment [Au tomated message] The 6606715932) system which ge nerated this result tra [...] biotin. Lab Interpretation Normal (test code = 55046-5) [id number] 04:32:17 Test Item Value Reference Interpretation Comments Range TROPONIN I (test 0.002 ng/mL See_Comment [Automated code = 2897326239) message] The system which generated this result [...] biotin. Lab Interpretation Normal (test code = 05156-1) [id number] 04:29:16 Test Item Value Reference Range Interpretation Comments NT-proBNP (test code 74 pg/mL See_Comment [Autom ated = 6349220842) message] The system which generated this result transmitted reference range : <=125. The reference range was not used to interpret this result as normal/abnormal . AMALIA (test code = AMALIA) Biotin has been reported to cause a negative bias, interpret results relative to patient's use of biotin. Lab Interpretation Normal (test code = 43796-1) [facility] (36891)2022-04-30 04:20:56 Test Item Value Reference Range Interpretation Comments NA (test code = 139 mmol/L 135-145 1700904592) K (test code = 4.2 mmol/L 3.5-5.0 9032581978) CL (test code = 105 mmol/L 98-108 5495929182) CO2 TOTAL (test code = 26 mmol/L 23-31 7035932261) AGAP (test code = 2-16 5111218569) BUN (test code = 17 mg/dL 7-23 6321204090) GLUCOSE (test code = 111 mg/dL 70-110 H 9799946774) CREATININE (test code = 0.99 mg/dL 0.50-1.04 9838179289) TOTAL BILI (test code = 0.3 mg/dL 0.1-1.7 9393647014) CALCIUM (test code = 10.1 mg/dL 8.6-10.6 4831136835) T PROTEIN (test code = 6.8 g/dL 6.3-8.2 2529038993) ALBUMIN (test code = 4.4 g/dL 3.5-5.0 9856414511) ALK PHOS (test code = 72 U/L 34-122 4875150596) ALTv (test code = 17 U/L 5-35 1742-6) AST(SGOT) (test code = 20 U/L 13-40 9789048338) eGFR (test code = mL/min/1.73m2 0418753281) AMALIA (test code = AMALIA) Association of [...] tests). Lab Interpretation Abnormal (test code = 90269-6) [facility] / [id number] 04:16:14 Test Item Value Reference Range Interpretation [...] tions. Lab Interpretation (test Normal code = 81946-5) [facility] WITH [id number] 04:15:13 Test Item Value Reference Range Interpretation [...] RDW-SD (test code = 41.3 fL 39.0-49.9 77336-8) RDW-CV (test code = 13.1 % 12.0-15.5 788-0) PLT (test code = See_Comment [Automated 777-3) message] The sy stem which generated this result transmitted reference range : 166 - 358 10*3/ ?L. The reference r elba was not used to interpret this result as normal/abnormal . MPV (test code = 10.9 fL 9.5-12.9 49044-8) NRBC/100 WBC (test See_Comment [Automat ed code = 1725516976) message] The system which generated this result transmitted reference range : 0.0 - 10.0 /100 WBCs. The refer ence range was not u sed to interpret th is result as normal/abnormal . NRBC x10^3 (test code See_Comment [Auto mated = 9430052283) message] The s ystem which generated this result transmitted reference range : 10*3/?L. The reference range was not used to interpret this result as normal/abnormal . GRAN MAT (NEUT) % 57.0 % (test code = 770-8) IMM GRAN % (test code 0.40 % = 8538266979) LYMPH % (test code = 30.2 % 736-9) MONO % (test code = 9.5 % 5905-5) EOS % (test code = 2.3 % 713-8) BASO % (test code = 0.6 % 706-2) GRAN MAT x10^3(ANC) 4.79 10*3/uL 1.88-7.09 (test code = 3096417585) IMM GRAN x10^3 (test 0.03 10*3/uL 0.00-0.06 code = 6779715967) LYMPH x10^3 (test code 2.54 10*3/uL 1.32-3.29 = 731-0) MONO x10^3 (test code 0.80 10*3/uL 0.33-0.92 = 742-7) EOS x10^3 (test code = 0.19 10*3/uL 0.03-0.39 711-2) BASO x10^3 (test code 0.05 10*3/uL 0.01-0.07 = 704-7) Lab Interpretation Abnormal (test code = 64637-2) [facility] 16:46:40 Test Item Value Reference Range Interpretation Comments MAGNESIUM (test code = 9581311911) 1.9 mg/dL 1.7-2.4 Lab Interpretation (test code = Normal 94477-7) [facility] (36363)2021-08-30 16:46:20 Test Item Value Reference Range Interpretation Comments NA (test code = 141 mmol/L 135-145 2642300751) K (test code = 4.4 mmol/L 3.5-5.0 8941983405) CL (test code = 107 mmol/L 98-108 6658388812) CO2 TOTAL (test code = 23 mmol/L 23-31 7972877237) AGAP (test code = 2-16 5569341052) BUN (test code = 17 mg/dL 7-23 9030636191) GLUCOSE (test code = 114 mg/dL 70-110 H 6210310661) CREATININE (test code = 1.06 mg/dL 0.50-1.04 H 0491738343) TOTAL BILI (test code = 0.6 mg/dL 0.1-1.3 3995727348) CALCIUM (test code = 9.9 mg/dL 8.6-10.6 7908803754) T PROTEIN (test code = 6.7 g/dL 6.3-8.2 4392847935) ALBUMIN (test code = 4.3 g/dL 3.5-5.0 7381081403) ALK PHOS (test code = 81 U/L 34-122 5492351718) ALTv (test code = 21 U/L 5-35 1742-6) AST(SGOT) (test code = 26 U/L 13-40 4812779263) eGFR (test code = mL/min/1.73m2 1735522222) AMALIA (test code = AMALIA) Association of [...] tests). Lab Interpretation Abnormal (test code = 41190-8) [facility] WITH [id number] 16:45:39 Test Item Value Reference Range Interpretation Comments WBC (test code = See_Comment [Automated 6290-2) message] The sy stem which generated this result transmitted reference range : 4.30 - 11.10 10*3/?L. The reference range was not used to interpret this result as normal/abnormal . RBC (test code = See_Comment [Automated 149-8) message] The sy stem which generated this [...] RDW-SD (test code = 44.4 fL 39.0-49.9 92482-4) RDW-CV (test code = 14.0 % 12.0-15.5 788-0) PLT (test code = See_Comment [Automated 777-3) message] The sy stem which generated this result transmitted reference range : 166 - 358 10*3/ ?L. The reference r elba was not used to interpret this result as normal/abnormal . MPV (test code = 10.7 fL 9.5-12.9 77979-1) NRBC/100 WBC (test See_Comment [Automat ed code = 8266712248) message] The system which generated this result transmitted reference range : 0.0 - 10.0 /100 WBCs. The refer ence range was not u sed to interpret th is result as normal/abnormal . NRBC x10^3 (test code <0.01 See_Comment [Auto mated = 6006953890) message] The s ystem which generated this result transmitted reference range : 10*3/?L. The reference range was not used to interpret this result as normal/abnormal . GRAN MAT (NEUT) % 54.5 % (test code = 770-8) IMM GRAN % (test code 0.50 % = 9156577862) LYMPH % (test code = 28.7 % 736-9) MONO % (test code = 11.3 % 5905-5) EOS % (test code = 4.1 % 713-8) BASO % (test code = 0.9 % 706-2) GRAN MAT x10^3(ANC) 2.41 10*3/uL 1.88-7.09 (test code = 4826963818) IMM GRAN x10^3 (test <0.03 0.00-0.06 code = 7918772533) LYMPH x10^3 (test code 1.27 10*3/uL 1.32-3.29 L = 731-0) MONO x10^3 (test code 0.50 10*3/uL 0.33-0.92 = 742-7) EOS x10^3 (test code = 0.18 10*3/uL 0.03-0.39 711-2) BASO x10^3 (test code 0.04 10*3/uL 0.01-0.07 = 704-7) Lab Interpretation Abnormal (test code = 34124-2) [facility] 11:14:00 Test Item Value Reference Range Interpretation Comments Chemistry (test 0.013 ng/mL < 0.028 code = TROPI-R) Reference Ra nge 0.00 - 0.028 ng /mL Negative 0.029 - 0.29 ng/mL Indetermi sabino Greater or Equa l to 0.3 ng/mL Strongly suggests ND Chemistry - BNP, HgbA1c, [id number] 11:14:00 Test Item Value Reference Range Interpretation Comments Chemistry - BNP, HgbA1c, PTHi 14.3 pg/mL 0-100 N (test code = BNP) [id number] 11:12:00 Test Item Value Reference Range Interpretation [...] code 21 U/L 8-55 N = ALT) [id number] 10:55:00 Test Item Value Reference Range Interpretation [...] DRUG (IMMUNOASSAY) - COMPREHENSIVE DRUG SCREEN W/O [id number] 03:45:17 Test Item Value Reference Range Interpretation Comments AMPHET (test code = 1512264020) Negative Negative SALOMÓN U (test code = 3462517107) Negative Negative BENZO U (test code = 9058943278) Negative Negative Cocaine Metabolite (test code = Negative Negative 3617697511) METHADONE (test code = 5288341936) Negative Negative OPIATES (test code = 3752758938) Negative Negative PCP (test code = 0341122536) Negative Negative THC (test code = 6589991406) Negative Negative AMALIA (test code = AMALIA) Lab Interpretation (test code = Normal 74995-0) [facility] 03:28:39 Test Item Value Reference Range Interpretation Comments APPEARANCE (test code = Clear Clear 4948096230) COLOR (test code = Yellow Yellow 0049410730) PH (test code = 4.8-8.0 5057860290) SP GRAVITY (test code = 1.003-1.030 6526609053) GLU U QUAL (test code = Normal Normal 4274595274) BLOOD (test code = Negative Negative 5242391949) KETONES (test code = Negative Negative 9928232733) PROTEIN (test code = Negative Negative 2887-8) UROBILIN (test code = Normal Normal 6984555634) BILIRUBIN (test code = Negative Negative 8332526206) NITRITE (test code = Negative Negative 3573359494) LEUK GLENNA (test code = 75/uL Negative A 9278273706) RBC/HPF (test code = See_Comment H [Autom ated message] 3238406187) The system [employer] generated this result transmitted ref erence range: 0 - 3 HP F. The reference range was not used to int erpret this result as normal/abnormal . WBC/HPF (test code = See_Comment H [Autom ated message] 9915936148) The system [employer] generated this result transmitted ref erence range: 0 - 5 HP F. The reference range was not used to int erpret this result as normal/abnormal . BACTERIA (test code = Negative Negative 3995939231) SQ EPITH (test code = <1 HPF 9401061984) Lab Interpretation (test Abnormal code = 16606-5) [facility] [id number] 02:33:37 Test Item Value Reference Range Interpretation [...] RDW-SD (test code = 46.1 fL 39.0-49.9 73315-4) RDW-CV (test code = 15.0 % 12.0-15.5 788-0) PLT (test code = See_Comment [Automated 777-3) message] The system which generated this result transmit [place] reference range : 166 - 358 10*3/ ?L. The reference range was not u sed to interpret th is result as normal/abnormal . MPV (test code = 10.4 fL 9.5-12.9 43149-8) NRBC/100 WBC (test See_Comment [Automat ed code = 4633302792) message] The system which generated this result transmit nidia reference range : 0.0 - 10.0 /100 WBCs. The reference range was not used to interpret this result as normal/abnormal . NRBC x10^3 (test code <0.01 See_Comment [Auto mated = 4696873047) message] The system which generated this result transmit [place] reference range : 10*3/?L. The reference range was not used to interpret this result as normal/abnormal . GRAN MAT (NEUT) % 89.8 % (test code = 770-8) IMM GRAN % (test code 2.30 % = 4548617192) LYMPH % (test code = 3.5 % 736-9) MONO % (test code = 4.2 % 5905-5) EOS % (test code = 0.0 % 713-8) BASO % (test code = 0.2 % 706-2) GRAN MAT x10^3(ANC) 16.54 10*3/uL 1.88-7.09 H (test code = 6877319109) IMM GRAN x10^3 (test 0.42 10*3/uL 0.00-0.06 H code = 0224067514) LYMPH x10^3 (test code 0.64 10*3/uL 1.32-3.29 L = 731-0) MONO x10^3 (test code 0.77 10*3/uL 0.33-0.92 = 742-7) EOS x10^3 (test code = <0.03 0.03-0.39 L 711-2) BASO x10^3 (test code 0.04 10*3/uL 0.01-0.07 = 704-7) Lab Interpretation Abnormal (test code = 31966-8) [id number] 02:10:14 Test Item Value Reference Range Interpretation Comments TROPONIN I (test code = 0.020 ng/mL See_Comment [Au tomated 9866902607) message] The sy stem which generated this result transmitted reference range : <=0.034. The reference range was not used to interpret this result as normal/abnormal . AMALIA (test code = AMALIA) Lab Interpretation Normal (test code = 33583-5) [facility] (28394)2021-02-14 01:58:53 Test Item Value Reference Range Interpretation Comments NA (test code = 1496173891) 137 mmol/L 135-145 K (test code = 4517833584) 4.4 mmol/L 3.5-5.0 CL (test code = 0166361037) 102 mmol/L 98-108 CO2 TOTAL (test code = 7896325021) 25 mmol/L 23-31 AGAP (test code = 8043687095) 2-16 BUN (test code = 0531206952) 22 mg/dL 7-23 GLUCOSE (test code = 4274021647) 149 mg/dL 70-110 H CREATININE (test code = 0.89 mg/dL 0.50-1.04 7133816585) TOTAL BILI (test code = 0.5 mg/dL 0.1-1.9 7503536815) CALCIUM (test code = 9603272672) 10.6 mg/dL 8.6-10.6 T PROTEIN (test code = 4858040063) 7.6 g/dL 6.3-8.2 ALBUMIN (test code = 5988382489) 4.5 g/dL 3.5-5.0 ALK PHOS (test code = 5214011087) 101 U/L 34-122 ALTv (test code = 1742-6) 25 U/L 5-35 AST(SGOT) (test code = 4779583904) 29 U/L 13-40 eGFR (test code = 3173133641) mL/min/1.73m2 AMALIA (test code = AMALIA) Lab Interpretation (test code = Abnormal 09287-9) [facility] NOW RAPID TESTING)2021-02-14 01:57:53 Test Item Value Reference Range Interpretation Comments SARS-CoV-2 Rapid ID NOW (test Not Detected Not Detected code = 64960-2) AMALIA (test code = AMALIA) Lab Interpretation (test code = Normal 09590-5) [facility] [id number] 11:27:57 Test Item Value Reference Range Interpretation Comments TROPONIN I (test code = <0.012 See_Comment [Au tomated message] 9058388487) The system [employer] h generated this result transmitted ref erence range: <=0.034 ng/mL. The reference r elba was not used to interpret this result as normal/abnor mal. AMALIA (test code = AMALIA) Lab Interpretation (test Normal code = 23294-1) [facility] WITH [id number] 07:32:39 Test Item Value Reference Range Interpretation Comments WBC (test code = See_Comment [Automated 3690-2) message] The sy stem which generated this [...] RDW-SD (test code = 47.0 fL 39.0-49.9 43362-6) RDW-CV (test code = 14.9 % 12.0-15.5 788-0) PLT (test code = See_Comment [Automated 777-3) message] The sy stem which generated this result transmitted reference range : 166 - 358 10*3/ ?L. The reference r elba was not used to interpret this result as normal/abnormal . MPV (test code = 10.4 fL 9.5-12.9 99273-2) NRBC/100 WBC (test See_Comment [Automat ed code = [id number]) message] The system which generated this result transmitted reference range : 0.0 - 10.0 /100 WBCs. The refer ence range was not u sed to interpret th is result as normal/abnormal . NRBC x10^3 (test code <0.01 See_Comment [Auto mated = [id number]) message] The s ystem which generated this result transmitted reference range : 10*3/?L. The reference range was not used to interpret this result as normal/abnormal . GRAN MAT (NEUT) % 72.7 % (test code = 770-8) IMM GRAN % (test code 4.50 % = [id number]) LYMPH % (test code = 13.6 % 736-9) MONO % (test code = 7.0 % 5905-5) EOS % (test code = 1.8 % 713-8) BASO % (test code = 0.4 % 706-2) GRAN MAT x10^3(ANC) 7.99 10*3/uL 1.88-7.09 H (test code = 7526289287) IMM GRAN x10^3 (test 0.50 10*3/uL 0.00-0.06 H code = [id number]) LYMPH x10^3 (test code 1.50 10*3/uL 1.32-3.29 = 731-0) MONO x10^3 (test code 0.77 10*3/uL 0.33-0.92 = 742-7) EOS x10^3 (test code = 0.20 10*3/uL 0.03-0.39 711-2) BASO x10^3 (test code 0.04 10*3/uL 0.01-0.07 = 704-7) Lab Interpretation Abnormal (test code = 08420-5) [id number] Test Item Value Reference Range Interpretation Comments TROPONIN I (test code = <0.012 See_Comment [Au tomated message] [id number]) The system [employer] generated this result transmitted ref erence range: <=0.034 ng/mL. The reference r elba was not used to interpret this result as normal/abnor mal. AMALIA (test code = AMALIA) Lab Interpretation (test Normal code = 79107-6) [id number] 07:07:26 Test Item Value Reference Range Interpretation Comments NT-proBNP (test code = 87 pg/mL See_Comment [Aut omated message] [id number]) The system [employer] generated this result transmitted ref erence range: <=125. T he reference range was not used to int erpret this result as normal/abnormal . AMALIA (test code = AMALIA) Lab Interpretation (test Normal code = 62216-7) [id number] 06:59:27 Test Item Value Reference Range Interpretation Comments D-DIMER (test code = See_Comment H [Autom ated message] [id number]) The system [employer] generated this result transmitted ref erence range: <0.41 ?g /mL (FEU). The refe rence range was not u sed to interpret this result as normal/abnor mal. AMALIA (test code = AMALIA) Lab Interpretation (test Abnormal code = 44872-1) [facility] (NA, K, CL, CO2, GLUCOSE, BUN, CREATININE, CA)2021-02-13 06:58:46 Test Item Value Reference Range Interpretation Comments NA (test code = 0731337337) 139 mmol/L 135-145 K (test code = 4392500534) 4.7 mmol/L 3.5-5.0 CL (test code = 9651349699) 108 mmol/L 98-108 CO2 TOTAL (test code = 8589905198) 27 mmol/L 23-31 AGAP (test code = 9859614141) 2-16 BUN (test code = 2686383195) 22 mg/dL 7-23 GLUCOSE (test code = 4101625683) 106 mg/dL 70-110 CREATININE (test code = 1.10 mg/dL 0.50-1.04 H [id number]) CALCIUM (test code = 0247926006) 10.1 mg/dL 8.6-10.6 eGFR (test code = 0231424499) mL/min/1.73m2 AMALIA (test code = AMALIA) Lab Interpretation (test code = Abnormal 84059-9) [facility] : 1955 [facility] F[facility] Pt Name: JANICE DELA CRUZHLEEN [address] Phys: JESSE ANGELES [facility] [place] [id number] : 1955 Age: 65 SEX:F [phone] Exam Date: 02/21/21 Status: REG ER Acct: [id number] Loc: [facility] Pt Unit #: [id number] Report #: [id number] CC: JESSE ANGELES MD IMAGING SERVICES REPORT Order # Category/Exam [id number] RAD/XR Chest 1 View Portable ([id number]):. Results Exam: Chest one view HISTORY:Dyspnea COMPARISON: None FINDINGS: Cardiac silhouette: NormalAorta: Unremarkable Pulmonary vessels: Normal Costophrenic angles: Clear Lungs: Hyperinflation with chronic changes. Pneumothorax: None Osseous abnormalities: None IMPRESSION: No acute cardiopulmonary process. COMMUNICATION: Reported By: Antonio Vaca MD Electronically Signed Date/Time: 02/21/21 1037 Technologist: ALFONZO Dictated Date/Time: 02/21/21 1036 Transcribed Date/Time:"
[2022-10-26] MEDS ORDERED: NICOTINE 21 MG/PAT TD ONE (13:11)
[2022-10-26] MEDS ORDERED: NA CHLORIDE 0.9% 1,000 ML ONE (13:11)
[2022-10-26] MEDS ORDERED: LORazepam 2 MG/ML VIAL ONE (13:11)
--- NOTE | 2022-10-26 13:11 | ER ---
Nurse's Notes [facility] Name: Janice Harry Age: 67 yrs Sex: Female : 1955 Arrival Date: 10/26/2022 Time: 11:23 Bed 14 Private MD: Aiden Linn Diagnosis: Major depressive disorder, recurrent, moderate;Suicidal ideations;Unspecified kidney failure-CHRONIC;UTI/ Urinary tract infection, site not specified Presentation: 10/26 12:41 Chief complaint: Patient states: she went to see her psychiatrist and was sent over due ap3 to her suicidal ideation. patient reports that she is currently suicidal, and has a plan in place. She reports "I have lots of medication i can take.". Patient reports she wants help, "I don't want to ". Patient has a history of suicidal attempts by overdose. Patient states she was trying to get a hose from the exhaust of her truck to the cab, but knew her neighbors would see and would intervene. Patient states these feelings have been getting worse over the last week. Coronavirus screen: At this time, the client does not indicate any symptoms associated with coronavirus-19. Ebola Screen: No symptoms or risks identified at this time. Initial Sepsis Screen: Does the patient meet any 2 criteria? No. Patient's initial sepsis screen is negative. Does the patient have a suspected source of infection? No. Patient's initial sepsis screen is negative. Risk Assessment: Do you want to hurt yourself or someone else? Patient reports desire/thoughts of hurting themselves or someone else. Provider notified. Onset of symptoms was October 19, 2022. 12:41 Method Of Arrival: Ambulatory ap3 12:41 Acuity: HEBER 2 ap3 Triage Assessment: 12:47 General: Appears distressed, Behavior is cooperative. Pain: Complains of pain in ap3 abdomen. Neuro: Level of Consciousness is awake, alert, obeys commands, Oriented to person, place, time, situation. Cardiovascular: Patient's skin is warm and dry. Respiratory: Airway is patent Respiratory effort is even, unlabored, Respiratory pattern is regular, symmetrical. Historical: - Allergies: 12:46 Cipro; ap3 12:46 Codeine; ap3 12:46 Requip; ap3 12:46 Tegretol; ap3 - PMHx: 12:46 Anxiety; Asthma; Depression; Hyperlipidemia; Hypertension; Takotsubo Cardiomyopathy; ap3 - Immunization history:: Client reports receiving the 2nd dose of the Covid vaccine. - Social history:: Smoking status: Reported history of juuling and/or vaping. Screenin:48 Abuse screen: Denies threats or abuse. Nutritional screening: No deficits noted. ap3 Tuberculosis screening: No symptoms or risk factors identified. 13:39 [facility] ED Fall Risk Assessment (Adult) History of falling in the last 3 months, ld1 including since admission No falls in past 3 months (0 pts). Assessment: 13:39 General: Appears in no apparent distress. comfortable, Behavior is calm, cooperative, ld1 appropriate for age. Pain: Denies pain. Neuro: Level of Consciousness is awake, alert, obeys commands, Oriented to person, place, time, situation. Cardiovascular: Capillary refill < 3 seconds Patient's skin is warm and dry. Respiratory: Airway is patent Respiratory effort is even, unlabored. GI: Abdomen is round non-distended. : No signs and/or symptoms were reported regarding the genitourinary system. EENT: No signs and/or symptoms were reported regarding the EENT system. Derm: No signs and/or symptoms reported regarding the dermatologic system. Musculoskeletal: No signs and/or symptoms reported regarding the musculoskeletal system. 13:59 Reassessment: Personal itemized sheet completed - sent personal belongings to security. ld1 15:45 Reassessment: Patient appears in no apparent distress at this time. No changes from ld1 previously documented assessment. Patient and/or family updated on plan of care and expected duration. Pain level reassessed. 17:39 Reassessment: spoke with LESLIE Burris from [facility]. nurse to nurse kc6 report given. stated she will put in for a doc to doc and should be able to get acceptance. 18:49 Reassessment: Pt continuously requesting anxiety medication. Notified ERP. No new ld1 orders at this time. EMS at bedside for transport to [facility]. Pt belongings requested from security and sent with patient for transportation to facility. Psych: 12:47 [place] Suicide Severity Screening: In the past month, have you wished you were ap3 or wished you could go to sleep and not wake up? Patient responds "yes." "In the past month, have you actually had any thoughts of killing yourself?" Patient responds "yes." "In your lifetime, have you ever done anything, started to do anything, or prepared to do anything to end your life?" Patient responds "yes." Patient reports suicidal intent within 3 past months. 12:48 Pt denies substance abuse. ap3 13:00 Subjective: Patient's mood is sad. Objective: Patient is cooperative. Interventions: ld1 Removed personal items and placed in bag. Patient placed in hospital gown. Searched person for dangerous items. Urine collected and sent for urine drug test. Belonging list filled out. Safety Checks: Personal items have been removed. Commitment: Patient will be a voluntary commitment. Vital Signs: 12:41 BP 133 / 77; Pulse 70; Resp 17; Temp 97.5; Pulse Ox 97% ; Weight 92.99 kg; ap3 13:39 BP 127 / 88; Pulse 71; Resp 16; Pulse Ox 96% on R/A; ld1 18:47 BP 131 / 79; Pulse 82; Resp 18; Temp 98(O); Pulse Ox 98% on R/A; Pain 0/10; ld1 18:47 Pain Scale: Adult ld1 [place] Coma Score: 13:31 Eye Response: spontaneous(4). Motor Response: obeys commands(6). Verbal Response: jose oriented(5). Total: 15. NIH Stroke Scale Scores: 13:31 NIHSS Score: 0 jose ED Course: 11:25 Patient arrived in ED. am2 11:25 Aiden Linn DO is Private Physician. am2 11:30 Adolfo Renteria MD is Attending Physician. jose 12:46 Triage completed. ap3 12:48 Arm band placed on left wrist. ap3 13:08 Aminta Aldrich, RN is Primary Nurse. ld1 13:39 Patient has correct armband on for positive identification. Placed in gown. Bed in low ld1 position. Call light in reach. Side rails up X2. sitter at bedside. supervisor wet room on. Pulse ox on. NIBP on. Sitter at bedside. Noise minimized. Warm blanket given. Pillow given. Patient is placed in psych hold. Patient is placed in psych hold. 13:39 Inserted saline lock: 22 gauge in right antecubital area, using aseptic technique. ld1 13:39 No provider procedures requiring assistance completed. ld1 13:45 Urinalysis w/ reflexes Sent. ld1 16:26 faxed chart to [facility]. bd 16:52 faxed chart to [facility]. bd 17:23 faxed chart to [facility]. bd 17:25 pt denied at [facility] at this time. per [place]. bd 18:16 CT Stone Protocol In Process Unspecified. EDMS 18:49 Patient transferred, IV remains in place. ld1 Administered Medications: 13:23 Drug: Nicoderm CQ Transdermal Patch 21 mg/24 hr 1 patches Route: Transdermal; Site: ld1 affected area; 13:39 Drug: Ativan IVP 2 mg Route: IVP; Site: right antecubital; ld1 13:45 Drug: NS 0.9% IV 500 ml Route: IV; Rate: bolus; Site: right antecubital; ld1 17:08 Drug: Rocephin IV 1 grams Route: IV; Rate: per protocol; Site: right antecubital; ld1 Medication: 13:39 VIS not applicable for this client. ld1 Outcome: 13:11 ER care complete, transfer ordered by . jose 18:49 Transferred by ground EMS ld1 18:49 Condition: stable 18:49 Instructed on the need for transfer. 18:50 Patient left the ED. ld1 NIH Stroke Scale - NIH Stroke Score Date: 10/26/2022 Time: 13:31 Total Score = 0 10. Dysarthria (speech clarity - read or repeat words) - 0(Normal) 11. Extinction and Inattention (visual/tactile/auditory/spatial/personal) - 0(No abnormality) 1a. Level of Consciousness (LOC) - 0(Alert) 1b. Level of Consciousness (LOC) (Month \\T\\ Age) - 0(Both) 1c. LOC Commands (Open \\T\\ Closes Eyes/Grab Driver) - 0(Both) 2. Best Gaze (Lateral Gaze Paresis) - 0(Normal) 3. Visual Field Loss - 0(No visual loss) 4. Facial Palsy - 0(Normal) 5a. Left Arm: Motor (10-second hold) - 0(No drift) 5b. Right Arm: Motor (10-second hold) - 0(No drift) 6a. Left Leg: Motor (5-second hold - always test supine) - 0(No drift) 6b. Right Leg: Motor (5-second hold - always test supine) - 0(No drift) 7. Limb Ataxia (finger/nose \\T\\ heel/pimentel - test with eyes open) - 0(Absent) 8. Sensory Loss (pinprick arms/legs/face) - 0(Normal) 9. Best Language: Aphasia (description/naming/reading) - 0(No aphasia) Initials: jose Signatures: Dispatcher [employer] Michelle De Paz Corey, MD MD cha Moreno, Amanda am2 Prokisch, Amanda, RN RN ap3 Aminta Aldrich RN RN ld1 Lisa Rodriguez RN RN kc6
--- NOTE | 2022-10-26 13:11 | EDPHYS ---
Physician Documentation [facility] Name: Janice Harry Age: 67 yrs Sex: Female : 1955 Arrival Date: 10/26/2022 Time: 11:23 Bed 14 Private MD: Aiden Linn ED Physician Adolfo Renteria HPI: 10/26 13:17 This 67 yrs old Female presents to ER via Ambulatory with complaints of Psych jose Problem. 13:17 The patient presents to the emergency department with depression, suicide ideation, and jose the patient has a plan, wants to poison self by sleeping in a running car, to overdose with medications. Onset: The symptoms/episode began/occurred 3 day(s) ago. Past psychiatric history: Prior diagnosis: depression. Associated signs and symptoms: Pertinent positives; depression, suicide ideation. Severity of symptoms: At their worst the symptoms were moderate in the emergency department the symptoms are unchanged. The patient has experienced similar episodes in the past, multiple times. Historical: - Allergies: 12:46 Cipro; ap3 12:46 Codeine; ap3 12:46 Requip; ap3 12:46 Tegretol; ap3 - PMHx: 12:46 Anxiety; Asthma; Depression; Hyperlipidemia; Hypertension; Takotsubo Cardiomyopathy; ap3 - Immunization history:: Client reports receiving the 2nd dose of the Covid vaccine. - Social history:: Smoking status: Reported history of juuling and/or vaping. ROS: 13:31 Constitutional: Negative for fever, chills, and weight loss, Eyes: Negative for injury, jose pain, redness, and discharge, ENT: Negative for injury, pain, and discharge, Neck: Negative for injury, pain, and swelling, Cardiovascular: Negative for chest pain, palpitations, and edema, Respiratory: Negative for shortness of breath, cough, wheezing, and pleuritic chest pain, Abdomen/GI: Negative for abdominal pain, nausea, vomiting, diarrhea, and constipation, Back: Negative for injury and pain, : Negative for injury, bleeding, discharge, and swelling, MS/Extremity: Negative for injury and deformity, Skin: Negative for injury, rash, and discoloration, Neuro: Negative for headache, weakness, numbness, tingling, and seizure, Psych: Negative for depression, anxiety, suicide ideation, homicidal ideation, and hallucinations, Allergy/Immunology: Negative for hives, rash, and allergies, Endocrine: Negative for neck swelling, polydipsia, polyuria, polyphagia, and marked weight changes, Hematologic/Lymphatic: Negative for swollen nodes, abnormal bleeding, and unusual bruising. Exam: 13:31 Constitutional: This is a well developed, well nourished patient who is awake, alert, jose and in no acute distress. Head/Face: Normocephalic, atraumatic. Eyes: Pupils equal round and reactive to light, extra-ocular motions intact. Lids and lashes normal. Conjunctiva and sclera are non-icteric and not injected. Cornea within normal limits. Periorbital areas with no swelling, redness, or edema. ENT: Nares patent. No nasal discharge, no septal abnormalities noted. Tympanic membranes are normal and external auditory canals are clear. Oropharynx with no redness, swelling, or masses, exudates, or evidence of obstruction, uvula midline. Mucous membranes moist. Neck: Trachea midline, no thyromegaly or masses palpated, and no cervical lymphadenopathy. Supple, full range of motion without nuchal rigidity, or vertebral point tenderness. No Meningismus. Chest/axilla: Normal chest wall appearance and motion. Nontender with no deformity. No lesions are appreciated. Cardiovascular: Regular rate and rhythm with a normal S1 and S2. No gallops, murmurs, or rubs. Normal PMI, no JVD. No pulse deficits. Respiratory: Lungs have equal breath sounds bilaterally, clear to auscultation and percussion. No rales, rhonchi or wheezes noted. No increased work of breathing, no retractions or nasal flaring. Abdomen/GI: Soft, non-tender, with normal bowel sounds. No distension or tympany. No guarding or rebound. No evidence of tenderness throughout. Back: No spinal tenderness. No costovertebral tenderness. Full range of motion. Female : Normal external genitalia. Skin: Warm, dry with normal turgor. Normal color with no rashes, no lesions, and no evidence of cellulitis. MS/ Extremity: Pulses equal, no cyanosis. Neurovascular intact. Full, normal range of motion. Neuro: Awake and alert, GCS 15, oriented to person, place, time, and situation. Cranial nerves II-XII grossly intact. Motor strength 5/5 in all extremities. Sensory grossly intact. Cerebellar exam normal. Normal gait. 13:31 Psych: Behavior/mood is depressed, Affect is flat, Oriented to person, place, time, Patient has no thoughts/intents to harm self or others. Judgement / Insight is normal. Memory is normal. Delusions/hallucinations are not present. 13:35 ECG was reviewed by the Attending Physician. [facility] Vital Signs: 12:41 BP 133 / 77; Pulse 70; Resp 17; Temp 97.5; Pulse Ox 97% ; Weight 92.99 kg; ap3 13:39 BP 127 / 88; Pulse 71; Resp 16; Pulse Ox 96% on R/A; ld1 18:47 BP 131 / 79; Pulse 82; Resp 18; Temp 98(O); Pulse Ox 98% on R/A; Pain 0/10; ld1 18:47 Pain Scale: Adult ld1 NIH Stroke Scale Scores: 13:31 NIHSS Score: 0 jose [place] Coma Score: 13:31 Eye Response: spontaneous(4). Motor Response: obeys commands(6). Verbal Response: jose oriented(5). Total: 15. MDM: 11:30 Patient medically screened. [facility] 13:34 Differential diagnosis: drug withdrawal. acute psychotic break, depression. Data [facility] reviewed: vital signs, EMS record, lab test result(s), EKG. Consideration of Admission/Observation Escalation of care including admission/observation considered. I considered the following discharge prescriptions or medication management in the emergency department Medications were administered in the Emergency Department. See MAR. Test considered but Not performed: CT: no ct head. Care significantly affected by the following chronic conditions: Hypertension, depression, asthma, hyperlipidemia, asthma. Counseling: I had a detailed discussion with the patient and/or guardian regarding: the historical points, exam findings, and any diagnostic results supporting the discharge/admit diagnosis, the presence of at least one elevated blood pressure reading (>120/80) during this emergency department visit, lab results, the need to transfer to another facility, for higher level of care, [facility] does not immediately have the required specialist. 10/26 11:30 Order name: Acetaminophen; Complete Time: 16:56 [facility] 10/26 11:30 Order name: Basic Metabolic Panel; Complete Time: 16:56 [facility] 10/26 11:30 Order name: CBC with Diff; Complete Time: 16:56 [facility] 10/26 11:30 Order name: ETOH Level; Complete Time: 16:56 [facility] 10/26 11:30 Order name: Hepatic Function; Complete Time: 16:56 [facility] 10/26 11:30 Order name: PT-INR; Complete Time: 16:56 [facility] 10/26 11:30 Order name: Ptt, Activated; Complete Time: 16:56 [facility] 10/26 11:30 Order name: Salicylate; Complete Time: 16:56 [facility] 10/26 11:30 Order name: Urinalysis w/ reflexes; Complete Time: 16:56 [facility] 10/26 11:30 Order name: Urine Drug Screen; Complete Time: 16:56 [facility] 10/26 14:30 Order name: Urine Culture [facility] 10/26 16:57 Order name: Urine Culture [facility] 10/26 16:57 Order name: CT Stone Protocol [facility] 10/26 11:30 Order name: EKG; Complete Time: 11:31 [facility] 10/26 13:41 Order name: Diet Finger Food; Complete Time: 13:41 [facility] 10/26 11:30 Order name: EKG - Nurse/Tech; Complete Time: 13:23 [facility] 10/26 11:30 Order name: IV Saline Lock; Complete Time: 13:50 [facility] 10/26 11:30 Order name: Labs collected and sent; Complete Time: 14:17 [facility] 10/26 11:30 Order name: Suicide Screening (Annabella); Complete Time: 13:45 jose EC:35 Rate is 68 beats/min. Rhythm is regular. QRS [place] is Normal. LA interval is normal. QRS jose interval is normal. QT interval is normal. No Q waves. T waves are Normal. No ST changes noted. Clinical impression: NSR w/ Non-specific ST/T Changes and No evidence of ischemia. Interpreted by me. Reviewed by me. Administered Medications: 13:23 Drug: Nicoderm CQ Transdermal Patch 21 mg/24 hr 1 patches Route: Transdermal; Site: ld1 affected area; 13:39 Drug: Ativan IVP 2 mg Route: IVP; Site: right antecubital; ld1 13:45 Drug: NS 0.9% IV 500 ml Route: IV; Rate: bolus; Site: right antecubital; ld1 17:08 Drug: Rocephin IV 1 grams Route: IV; Rate: per protocol; Site: right antecubital; ld1 Disposition Summary: 10/26/22 13:11 Transfer Ordered Transfer Location: Psych Facility jose Reason: Higher level of care jose Condition: Stable jose Problem: new jose Symptoms: have improved jose Accepting Physician: to psych(10/26/22 18:50) ld1 Diagnosis - Major depressive disorder, recurrent, moderate jose - Suicidal ideations jose - Unspecified kidney failure - CHRONIC jose - UTI/ Urinary tract infection, site not specified jose Forms: - Medication Reconciliation Form jose - SBAR form jose NIH Stroke Scale - NIH Stroke Score Date: 10/26/2022 Time: 13:31 Total Score = 0 10. Dysarthria (speech clarity - read or repeat words) - 0(Normal) 11. Extinction and Inattention (visual/tactile/auditory/spatial/personal) - 0(No abnormality) 1a. Level of Consciousness (LOC) - 0(Alert) 1b. Level of Consciousness (LOC) (Month \T\ Age) - 0(Both) 1c. LOC Commands (Open \T\ Closes Eyes/Drawer In Plain Loom) - 0(Both) 2. Best Gaze (Lateral Gaze Paresis) - 0(Normal) 3. Visual Field Loss - 0(No visual loss) 4. Facial Palsy - 0(Normal) 5a. Left Arm: Motor (10-second hold) - 0(No drift) 5b. Right Arm: Motor (10-second hold) - 0(No drift) 6a. Left Leg: Motor (5-second hold - always test supine) - 0(No drift) 6b. Right Leg: Motor (5-second hold - always test supine) - 0(No drift) 7. Limb Ataxia (finger/nose \T\ heel/pimentel - test with eyes open) - 0(Absent) 8. Sensory Loss (pinprick arms/legs/face) - 0(Normal) 9. Best Language: Aphasia (description/naming/reading) - 0(No aphasia) Initials: jose Signatures: Dispatcher [employer] Adolfo Dior MD MD cha Prokisch, Amanda RN RN ap3 Aminta Aldrich RN RN ld1 Corrections: (The following items were deleted from the chart) 16:58 13:11 to psych jose jose 18:50 16:58 to psych jose ld1
[2022-10-26 14:25] LABS: Specific Gravity 1.017 (1.005-1.030); Transitional Epithelial <5 /HPF (None Seen); Urine Bacteria <20 /HPF (<20); Urine Bilirubin NEGATIVE (Negative); Urine Blood Negative (Negative); Urine Clarity Clear (Clear); Urine Color Yellow (Yellow); Urine Glucose NEGATIVE (Negative); Urine Mucus Slight /HPF (None Seen); Urine Protein TRACE (Negative); Urine RBC <5 /HPF (None Seen); Urine Urobilinogen Normal (Normal); Urine WBC Clump Rare /HPF (None Seen)
[2022-10-26 14:29] LABS: Barbiturates POSITIVE (NEGATIVE); Benzodiazepines POSITIVE (NEGATIVE); Cocaine NEGATIVE (NEGATIVE); METHAMPHETAM NEGATIVE (NEGATIVE); Methadone NEGATIVE (NEGATIVE); Opiates NEGATIVE (NEGATIVE); Phencyclidine NEGATIVE (NEGATIVE); THC Cannibis NEGATIVE (NEGATIVE)
[2022-10-26 14:30] LABS: Absolute Lymphocytes (CBC) 2.1 K/uL (0.7-4.9); Hematocrit 37.3 % (36.0-45.0); MCV 84.2 fL (80-100); MPV 9.6 fL (7.6-11.3); RBC Red Blood Cell Count 4.43 M/uL (3.86-4.86)
[2022-10-26 14:31] LABS: Protime INR 1.06
[2022-10-26 15:17] LABS: ALT/SGPT 25 U/L (13-56); AST/SGOT 17 U/L (15-37); Albumin 3.8 g/dL (3.4-5.0); Alkaline Phosphatase 106 U/L (45-117); BUN Blood Urea Nitrogen 25 mg/dL (7-18); Bicarbonate 21 mEq/L (21-32); Bilirubin Direct 0.1 mg/dL (0-0.2); Bilirubin Total 0.4 mg/dL (0.2-1.0); Glomerular Filtration Rate 32 ml/min (=/>90); Glucose Level 108 mg/dL (74-106); Potassium 4.3 mEq/L (3.5-5.1); Protein, Total 7.5 g/dL (6.4-8.2); Sodium Level 134 mEq/L (136-145)
[2022-10-26] MEDS ORDERED: CEFTRIAXONE 1000 MG/VIAL ONE (17:10)
--- NOTE | 2022-10-26 19:04 | RAD REPORT ---
EXAM DESCRIPTION: CT - Stone Protocol - 10/26/2022 6:14 pm CLINICAL HISTORY: FLANK PAIN COMPARISON: CT ABDOMEN PELVIS WO CONTRAST dated 12/12/2011 TECHNIQUE: Thin cut axial CT imaging of the abdomen and pelvis was performed without IV contrast. Mu ltiplanar reformats were generated and reviewed. All CT scans are performed using dose optimization technique as appropriate and may include automated exposure control or mA/KV adjustment according to patient size. FINDINGS: No suspicious findings in the lung bases. 4 millimeter peripheral left lower lobe nodule i s stable. The liver, spleen, and pancreas show no suspicious findings. Gallbladder and biliary tree are also wi thout suspicious finding. Stable size of small exophytic lesions at the superior renal pole, the largest of which measures 11 m illimeter, and appears mildly hyperdense, suggesting a hemorrhagic cyst. No other suspicious parenchy mal lesions. No evidence of radiopaque calculi or hydroureteronephrosis. No dilated bowel loops or bowel wall thickening. No free air, free fluid or inflammatory stranding. N o hernia, mass or bulky lymphadenopathy. The urinary bladder is without significant finding. No suspicious bony findings. IMPRESSION: No acute intra-abdominal process. Incidental findings as above.
[2022-10-26 19:56] VITALS: BP 133/77; TEMP 97.5; O2SAT 97
== END 2022-10-26 18:50 ==
LOC: ER 11:23
DX: F33.1 Major depressive disorder, recurrent, moderate (principal); N39.0 Urinary tract infection, site not specified; I12.9 Hypertensive chronic kidney disease with stage 1 through stage 4 chronic kidney disease, or unspecified chronic kidney disease; N18.9 Chronic kidney disease, unspecified; Z88.1 Allergy status to other antibiotic agents; Z88.5 Allergy status to narcotic agent; Z88.8 Allergy status to other drugs, medicaments and biological substances
CPT/HCPCS: 87088; 85025; 81001; 87086; 80048; 36415; 85610; 80076; 85730; 80307; 76377; 74176; 96375; 96374; 99285; J7030; J0696; G0480 ×3

== ENCOUNTER 2023-03-26 15:30 | Emergency (ER) | payer MEDICARE ==
--- OUTSIDE RECORDS SUMMARY | 2023-03-26 15:37 | XMS REPORT | Continuity of Care Document ---
:1955 Author Organization [facility] t Address [address] [place] [address] [place] [address] Care Team Providers Name Role Phone Kaveh Wolfe Primary Care Physician Unavailable Sonya German Attending Clinician Unavailable Salvador Strickland Attending Clinician JOSE ROSS Attending Clinician Unavailable Jose Ross DO Attending Clinician Temo Brewster Attending Clinician Unavailable Yariel Monroe Attending Clinician Unavailable WILLIE PINA Attending Clinician Unavailable WILLIE PINA Attending Clinician Unavailable Royer Ayala MD Attending Clinician Torito Cabrera Attending Clinician Philipp Liriano Attending Clinician KYLE VIVAS Attending Clinician Unavailable Kyle Luis Attending Clinician [email or web address] Attending Clinician Unavailable Bess Godoy Attending Clinician Tom Euceda Attending Clinician Edd YUEN Attending Clinician Unavailable Edd Lin Attending Clinician JUANITA KHAN Attending Clinician Unavailable Fatuma Jackson Attending Clinician NICOLETTE CAMPBELL Attending Clinician Unavailable Nicolette Eden S Attending Clinician Jolynn_S Attending Clinician Unavailable Jesse Angeles Attending Clinician Unavailable Bertin Sanchez Attending Clinician Jessica RAILROAD CAR CHECKER, Mallory Olmedo Attending Clinician Jayson NELSON, Janice Lennon Attending Clinician Unavailable Xiomara Harrell MD Attending Clinician UNKNOWN, ATTENDING Attending Clinician Unavailable MERLINE_Citlalli Attending Clinician Unavailable Vishal Agarwal MD Attending Clinician Liana Bahena MD Attending Clinician Jerzy Rangel DO Attending Clinician Bismark DIAZ, Sendil K.H. Attending Clinician Cr Roy MD Attending Clinician Beny Richardson PT Attending Clinician Unavailable Mara Lomax PT Attending Clinician Unavailable BISMARK, SENDIL K.H. Attending Clinician Unavailable AURELIA KIM Attending Clinician Unavailable JERZY RANGEL Attending Clinician Unavailable JERZY RANGEL Attending Clinician Unavailable Juanita Mathias Attending Clinician GARY CARR Attending Clinician Unavailable Gary Frank Attending Clinician ANGELINA SAEZ Attending Clinician Unavailable Sonya German Admitting Clinician Unavailable JOSE ROSS Admitting Clinician Unavailable Temo Brewster Admitting Clinician Unavailable KNOW, DOES_NOT Admitting Clinician Unavailable ROYER AYALA Admitting Clinician Unavailable KYLE VIVAS Admitting Clinician Unavailable [email or web address] Admitting Clinician Unavailable Edd YUEN Admitting Clinician Unavailable Yohan Admitting Clinician Unavailable LOUIS Admitting Clinician Unavailable Payers Payer Name Policy Type Policy Number Effective Date Expiration Date S 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 [id number] 2021 NON-CONTRACT 00:00:00 GENERIC AETNA MEDICARE ADV [id number] 2019 00:00:00 DEVOTED HEALTH [id number] MEDICARE ADVANTAGE 00:00:00 PLAN DEVOTED HEALTH [id number] (MEDICARE 00:00:00 REPLACEMENT HMO) MANAGED MEDICARE [id number] PPO/FFS GENERIC 00:00:00 HU[employer]NA GOLD PLS HMO [id number] 2019 00:00:00 Problems Condition Condition Condition Status Onset Resolution Last Treating Co mments Source Name Details Category Date Date Treatment Clinician Date Acute pain Acute pain Disease Active M [facility] right of right 4-01 [facility] shoulder shoulder 00:[facility] l Acute pain Acute pain Disease Active M [facility]i of right of right 4-01 st shoulder shoulder 00:00: [facility] l Fatty Fatty Disease Active Univers liver liver 2-25 ity of 00:00: [place] [facility] Macular Macular Disease Active Univers degenerati degenerati 2-25 it y of on on 00:00: [place] [facility] Vitamin D Vitamin D Disease Active Uni vers deficiency deficiency 2-25 it y of 00:00: [place] [facility] Alopecia Alopecia Disease Active Overview: Un kizzy 2-25 Formattin ity of 00:00: g of this 00 note Medical might be Branch different from the original. Has been seen by Jorge A ontiveros. Allergic Allergic Disease Active Unive rs rhinitis rhinitis 2-25 ity of 00:00: [place] [facility] B12 B12 Disease Active Univers deficiency deficiency 9-25 it y of 00:00: [place] [facility] Stress Stress Disease Active Univers incontinen incontinen 9-25 it y of ce ce 00:00: [place] [facility] HLD HLD Disease Active Univers (hyperlipi (hyperlipi 9-19 it y of demia) demia) 00:00: [place] [facility] Chest pain Chest pain Disease Active U nivers 9-18 ity of 00:00: [place] [facility] Vertigo Vertigo Disease Active Univers 8-12 ity of 00:00: [place] [facility] SOB SOB Disease Active Univers (shortness (shortness 1-28 it y of of breath) of breath) 00:00: [place] [facility] Dyspnea Dyspnea Disease Active 2015-06 Univers 2-16 ity of 00:: [place] [facility] Shortness Shortness Disease Active 2015-06 Uni vers of breath of breath 1-28 ity of 00:: [place] [facility] Obesity Obesity Disease Active 2015-06 Univers (BMI (BMI 1-20 ity of 30-39.9) 30-39.9) 00:00: [place] [facility] Acute Acute Disease Active 2015-06 Univers respirator respirator 1-20 it y of y failure [facility] Shoulder Shoulder Disease Active Unive rs pain, pain, 3-07 ity of right right 00:00: [place] [facility] Suicidal Suicidal Disease Active Unive rs ideations ideations 4-07 ity of 00:: [place] [facility] Hyponatrem Hyponatrem Disease Active U nivers ia ia 4-07 ity of 00:00: [place] [id number] Medical Branch Cardiomyop Cardiomyop Disease Active U nivers athy athy ity of [facility] Allergies, Adverse Reactions, Alerts Allergy Allergy Status Severity Reaction(s) Onset Inactive Treating Comm ents Source Name Type Date Date Clinician shellfis DA Active U Itching SJm h 7-11 derived 00:00: 00 codeine DA Active U Abdominal SJm Pain 7-07 00:00: 00 CODEINE DRUG Active High N/V Univers INGREDI 8- ity of 00:00: [place] [facility] Codeine Propensi Active Nausea Univers ty to and/or 8 ity of adverse Vomiting 00:00: [place] reaction 00 Medical s Branch BUPRENOR DRUG Active Unknown-Cmnt Un kizzy PHINE-NA 9-06 ity of LOXONE 00:00: [place] 00 Medical Branch CIPROFLO DRUG Active ITCHING 2017-0 Univers XACIN INGREDI 8-12 ity of 00:00: [place] 00 Medical Branch Ciproflo Propensi Active Itching 2016-0 Unive rs xacin ty to 8-12 ity of adverse 00:00: [place] reaction 00 Medical s Branch SHELLFIS DRUG Active ITCHING 2015- Univers H INGREDI 07-11 ity of DERIVED 00:00: [place] 00 Medical Branch Shellfis Propensi Active Itching 2015-06 For Food Uni vers h ty to 07-11 Service ity of Derived adverse 00:00: Use - [place] reaction 00 Thank Medical s you! Branch SUMATRIP DRUG Active Anxiety 2015- Univers RUSH INGREDI 3-07 ity of 00:00: [place] 00 Medical Branch Sumatrip Propensi Active Anxiety 2015-0 Unive rs rush ty to 307 ity of adverse 00:00: [place] reaction 00 Medical [facility] iodine DA Active MO ITCHING 2014-0 [facility] 9- [place] 00:00: d 00 [facility] carbamaz DA Active U UNKNOWN 2014-0 [facility] epine 9 [place] 00:00: d 00 [facility] sumatr DA Active MO RASH-HIVES 2014-0 [facility] rush 03-19 [place] 00:00: d 00 [facility] FA Active U swollen 2014- [facility] h throat 03-19 [place] derived 00:00: d 00 [facility] IODINE Drug Active ITCHING 2014-0 Univers AND Class 9-20 ity of IODIDE 00:00: [place] CONTAINI 00 Medical Branch PRODUCTS Iodine Propensi Active Itching 2014-0 Univers And ty to 9-20 ity of Iodide adverse 00:00: [place] Containi reaction 00 Medica l ng s Branch Products Iodine Propensi Active Itching 2014-0 Univers And ty to 9-20 ity of Iodide adverse 00:00: [place] Containi reaction 00 Medica l ng s Branch Products CARBAMAZ DRUG Active Hives 2014-0 Univers EPINE INGREDI 4-07 ity of 00:00: [place] 00 Medical [place] Social History Social Habit Start Date Stop Date Quantity Comments Source Gender identity [facility]it y of [facility] Sexual orientation [facility] Alcohol intake 2022-12-04 2022-12-04 Current University of 00:00:00 00:00:00 non-drinker of [facility] [place] alcohol Branch (finding) Exposure to 2022-04-19 2022-04-29 Not sure University SARS-CoV-2 (event) 00:00:00 21:30:00 [facility] History of Social 2019-11-08 2019-11-08 Univers ity of function 00:00:00 00:00:00 [facility] Cigarettes smoked 2017-07-26 2017-07-26 Univers ity of current (pack per 00:00:00 00:00:00 [facility] ) - Reported Branch Cigarette 2017-07-26 2017-07-26 University of pack-years 00:00:00 00:00:00 [facility] Tobacco use and 2017-07-26 2017-07-26 Former smokeless Uni versity of exposure 00:00:00 00:00:00 tobacco user [facility] History of tobacco 2012-09-26 User of Univer sity of use 00:00:00 smokeless [facility] tobacco [place] Sex Assigned At [birth year] [facility] Smoking Status Start Date Stop Date Source Tobacco smoking [facility] consumption unknown Ex-smoker 2017-07-26 00:00:00 2017-07-26 [facility] [place] 00:00:00 [facility] Branch Medications Ordered Filled Start Stop Current Ordering Indication Dosage Frequency Signature Comments Components Source Medication Medication Date Date Medication? Clinician (SIG) Name Name ketorolac 2022- No 30mg 30 mg, Unive rs (TORADOL) 01-22 Slow IV ity of injection 01:45: 00:53 Push, [place] 30 mg 00 :00 ONCE, 1 Medical dose, On Branch Cathy 01/21/23 at 2045, Routine NaCl 0.9% 2022- No 1000mL at 999 Uni vers (NS) bolus 01-22 mL/hr, ity of infusion 00:30: 02:00 1,000 mL, [place] as 1,000 mL 00 :00 IV Medical Piggyback, Branch ONCE, 1 dose, On Cathy 01/21/23 at 1930, STAT iopamidol 2022- No [id number] 60mL 60 mL, U nivers (ISOVUE 01-21 Intravenou ity o f 370-500 mL) 23:23: 23:23 s, ONCE, 1 [place] injection 00 :00 dose, On Medica l 60 mL Cathy 01/21/23 Branch at 1845, Routine ondansetron 2022- No 4mg 4 mg, Slow Univers (ZOFRAN 01-21 IV Push, ity of (PF)) 23:15: 22:17 ONCE, 1 [place] injection 4 00 :00 dose, On Medi dave mg Cathy 01/21/23 Branch at 1815, Routine iopamidol 2022- No [id number] 100mL 100 mL, Univers (ISOVUE 12-05 Intravenou ity o f 370-500 mL) 00:47: 00:48 s, ONCE, 1 [place] injection 00 :00 dose, On Medica l 100 mL Fri Branch 12/04/22 at 2000, Routine methylpredn 2022- No 125mg 125 mg, U nivers isolone sod 12-05 Intravenou i ty of succ 00:45: 00:10 s, ONCE, 1 [place] (SOLU-MEDRO 00 :00 dose, On Medi dave L) Fri Branch injection 12/04/22 at 125 mg 1945, 2 mL LORazepam 2022- No 1mg 1 mg, Slow U nivers (ATIVAN) 12-05 IV Push, ity of injection 1 00:15: 00:21 ONCE, 1 [place] mg 00 :00 dose, On Medical Fri Branch 12/04/22 at 1915, STAT diphenhydrA 2022- No 25mg 25 mg, Uni vers MINE 12-05 Slow IV ity of (BENADRYL) 00:00: 00:09 Push, [place] injection 00 :00 ONCE, 1 Medical 25 mg dose, On Branch 12/04/22 at 1900, STAT NaCl 0.9% 2022- No 1000mL at 999 Uni vers (NS) bolus 12-04 mL/hr, ity of infusion 22:15: 01:55 1,000 mL, [place] as 1,000 mL 00 :00 IV Medical Infusion, Branch ONCE, 1 dose, On Wed12/04/22 at 1715, MARK acetaminoph 2022- No 650mg 650 mg, U nivers en 12-0416 Oral, ity of (TYLENOL) 22:15: 23:29 ONCE, 1 [place] tablet 650 00 :00 dose, On Medic al mg Fri Branch 12/04/22 at 1715, MARK ondansetron 2021-06- No 4mg 4 mg, Slow Univers (ZOFRAN 06-30 IV Push, ity of (PF)) 05:00: 04:27 [...] Sat Branch 08/30/21 at 1230, STAT ketorolac No 15mg 15 mg, Unive rs (TORADOL) [...] No 200mg 200 mg, U nivers dine 06-24- Oral, ity of (PYRIDIUM) 16:15: 15:08 ONCE, 1 [place] tablet 200 00 :00 dose, On Medic al mg 06/24/21 Branch at 1015, Routine phenazopyri 0 Yes [id number] 200mg Take 1 Univers dine 200 mg 1-04 tablet by ity of tablet 00:00: mouth 3 [place] 00 (three) Medical times Branch daily. phenazopyri 2021-0 Yes [id number] 200mg Take 1 Univers dine 200 mg 1-04 tablet by ity of tablet 00:00: mouth 3 [place] (three) Medical times Branch daily. phenazopyri 2021-0 Yes [id number] 200mg Take 1 Univers dine 200 mg 1-04 tablet by ity of tablet 00:00: mouth 3 [place] 00 (three) Medical times Branch daily. phenazopyri 2021-0 Yes [id number] 200mg Take 1 Univers dine 200 mg 1-04 tablet by ity of tablet 00:00: mouth 3 [place] 00 (three) Medical times Branch daily. phenazopyri 2021-0 Yes [id number] 200mg Take 1 Univers dine 200 mg 1-04 tablet by ity of tablet 00:00: mouth 3 [place] 00 (three) Medical times Branch daily. phenazopyri 2021-0 Yes [id number] 200mg Take 1 Univers dine 200 mg 1-04 tablet by ity of tablet 00:00: mouth 3 [place] 00 (three) Medical times Branch daily. cephALEXin 2021- No [id number] 500mg Take 1 Univers (KEFLEX) 1-09 19-12 capsule by ity of 500 mg 00:00: 05:59 mouth 3 [place] capsule 00 :00 (three) Medical times Branch daily for 7 days. amoxicillin Yes 1{tbl} 1 tablet, Univers -clavulanat 02-14 Oral, ity of e 13:00: Q12H, [place] (AUGMENTIN) 00 First dose Me dical 875-125 [...] Cathy Medi dave (4 %) 02/13/21 at [place] infusion 2 2214, g Routine methylPREDN No 60mg 60 mg, IV Univers ISolone sod 02-14 Piggyback, i ty of succ 03:15: 02:22 ONCE, 1 [place] (SOLU-MEDRO 00 :00 dose, [place] Med ical L (PF)) 02/13/21 at Branch injection 221, STAT 60 mg ipratropium 2020- No 6mL 6 mL, Univ ers -albuteroL 02-14 Inhalation it y of (DUONEB) 03:15: 02:27 , ONCE, 1 [place] 0.5 mg-3 00 :00 dose, [place] Medica l mg(2.5 mg 02/13/21 at Bran ch base)/3 mL 2215, nebulizer Routine solution 6 mL NaCl 0.9% 2020- No 1000mL at 999 Uni vers (NS) bolus 8-27 08-27 mL/hr, ity of infusion 02:45: 04:00 1,000 mL, [place] 1,000 mL 00 :00 IV Medical Piggyback, Branch ONCE, 1 dose, Cathy 02/13/21 at 2145, STAT amoxicillin 2020-0 Yes [id number] 1{tbl} Take 1 Univers -clavulanat 8-27 tablet by ity of e 875-125 00:00: mouth [place] mg per 00 every 12 Medical tablet (twelve) Branch hours. amoxicillin 2020-0 Yes [id number] 1{tbl} Take 1 Univers -clavulanat 8-27 tablet by ity of e 875-125 00:00: mouth [place] mg per 00 every 12 Medical tablet (twelve) Branch hours. amoxicillin 2020-0 Yes [id number] 1{tbl} Take 1 Univers -clavulanat 8-27 tablet by ity of e 875-125 00:00: mouth [place] mg per 00 every 12 Medical tablet (twelve) Branch hours. amoxicillin 2020-0 Yes [id number] 1{tbl} Take 1 Univers -clavulanat 8-27 tablet by ity of e 875-125 00:00: mouth [place] mg per 00 every 12 Medical tablet (twelve) Branch hours. amoxicillin 2020-0 Yes [id number] 1{tbl} Take 1 Univers -clavulanat 8-27 tablet by ity of e 875-125 00:00: mouth [place] mg per 00 every 12 Medical tablet (twelve) Branch hours. amoxicillin 2020-0 Yes [id number] 1{tbl} Take 1 Univers -clavulanat 8-27 tablet by ity of e 875-125 00:00: mouth [place] mg per 00 every 12 Medical tablet (twelve) Branch hours. amoxicillin 2020-0 Yes [id number] 1{tbl} Take 1 Univers -clavulanat 8-27 tablet by ity of e 875-125 00:00: mouth [place] mg per 00 every 12 Medical tablet (twelve) Branch hours. iopamidol 2020-0 2021- No [id number] 100mL 100 mL, Univers (ISOVUE 02-13 Intravenou ity o f 370-500 mL) 11:30: 10:26 s, ONCE, 1 [place] injection 00 :00 dose, Cathy Medic al 100 mL 02/13/21 at Branch 0630, Routine diphenhydrA 2020- No 25mg 25 mg, Uni vers MINE 02-13 Slow IV ity of (BENADRYL) 08:30: 08:07 Push, [place] injection 00 :00 ONCE, 1 Medical 25 mg dose, [facility] 02/13/21 at 0330, STAT methylpredn 2020- No 125mg 125 mg, U nivers isolone sod 02-13 Slow IV ity of succ 07:15: 06:39 Push, [place] (SOLU-MEDRO 00 :00 ONCE, 1 Medic al L) dose, [facility] injection 02/13/21 at 125 mg 0215, STAT ipratropium 2020- No 3mL 3 mL, Univ ers -albuteroL 02-13 Inhalation it y of (DUONEB) 07:15: 06:27 , ONCE [place] 0.5 mg-3 00 :00 NOW, 1 Medical mg(2.5 mg dose, [facility] h base)/3 mL 02/13/21 at nebulizer 0215, solution 3 Routine mL diphenhydrA 2020- No 25mg 25 mg, Uni vers MINE 02-13 Slow IV ity of (BENADRYL) 06:45: 07:00 Push, [place] injection 00 :00 ONCE, 1 Medical 25 mg dose, [facility] 02/13/21 at 0200, STAT guaiFENesin 2020-0 Yes [id number] 400mg Take 1 Univers 400 mg 8-24 tablet by ity of tablet 00:00: mouth [place] 00 every 4 Medical (four) Branch hours as needed for Cough. benzonatate 2020-0 Yes [id number] 200mg Take 2 Univers 100 mg 8-24 capsules ity of capsule 00:00: by mouth 2 [place] 00 (two) Medical times Branch daily as needed for Cough. guaiFENesin 202-0 Yes [id number] 400mg Take 1 Univers 400 mg 8-24 tablet by ity of tablet 00:00: mouth [place] 00 every 4 Medical (four) Branch hours as needed for Cough. benzonatate 2020-0 Yes [id number] 200mg Take 2 Univers 100 mg 8-24 capsules ity of capsule 00:00: by mouth 2 [place] 00 (two) Medical times Branch daily as needed for Cough. guaiFENesin 2021-0 Yes [id number] 400mg Take 1 Univers 400 mg 8-24 tablet by ity of tablet 00:00: mouth [place] 00 every 4 Medical (four) Branch hours as needed for Cough. benzonatate 2021-0 Yes [id number] 200mg Take 2 Univers 100 mg 8-24 capsules ity of capsule 00:00: by mouth 2 [place] 00 (two) Medical times Branch daily as needed for Cough. guaiFENesin 2021-0 Yes [id number] 400mg Take 1 Univers 400 mg 8-24 tablet by ity of tablet 00:00: mouth [place] 00 every 4 Medical (four) Branch hours as needed for Cough. benzonatate 2021-0 Yes [id number] 200mg Take 2 Univers 100 mg 8-24 capsules ity of capsule 00:00: by mouth 2 [place] 00 (two) Medical times Branch daily as needed for Cough. guaiFENesin 2021-0 Yes [id number] 400mg Take 1 Univers 400 mg 8-24 tablet by ity of tablet 00:00: mouth [place] 00 every 4 Medical (four) Branch hours as needed for Cough. benzonatate 2021-0 Yes [id number] 200mg Take 2 Univers 100 mg 8-24 capsules ity of capsule 00:00: by mouth 2 [place] 00 (two) Medical times Branch daily as needed for Cough. guaiFENesin 2021-0 Yes [id number] 400mg Take 1 Univers 400 mg 8-24 tablet by ity of tablet 00:00: mouth [place] 00 every 4 Medical (four) Branch hours as needed for Cough. benzonatate 2021-0 Yes [id number] 200mg Take 2 Univers 100 mg 8-24 capsules ity of capsule 00:00: by mouth 2 [place] 00 (two) Medical times Branch daily as needed for Cough. guaiFENesin 2021-0 Yes [id number] 400mg Take 1 Univers 400 mg 8-24 tablet by ity of tablet 00:00: mouth [place] 00 every 4 Medical (four) Branch hours as needed for Cough. benzonatate 2021-0 Yes [id number] 200mg Take 2 Univers 100 mg 8-24 capsules ity of capsule 00:00: by mouth 2 [place] 00 (two) Medical times Branch daily as needed for Cough. guaiFENesin 1-0 Yes [id number] 400mg Take 1 Univers 400 mg 8-24 tablet by ity of tablet 00:00: mouth [place] 00 every 4 Medical (four) Branch hours as needed for Cough. benzonatate 2021-0 Yes [id number] 200mg Take 2 Univers 100 mg 8-24 capsules ity of capsule 00:00: by mouth 2 [place] 00 (two) Medical times Branch daily as needed for Cough. guaiFENesin 1-0 Yes [id number] 400mg Take 1 Univers 400 mg 8-24 tablet by ity of tablet 00:00: mouth [place] 00 every 4 Medical (four) Branch hours as needed for Cough. benzonatate 1-0 Yes [id number] 200mg Take 2 Univers 100 mg 8-24 capsules ity of capsule 00:00: by mouth 2 [place] 00 (two) Medical times Branch daily as needed for Cough. guaiFENesin 2020-0 Yes [id number] 400mg Take 1 Univers 400 mg 8-24 tablet by ity of tablet 00:00: mouth [place] 00 every 4 Medical (four) Branch hours as needed for Cough. benzonatate 2020-0 Yes [id number] 200mg Take 2 Univers 100 mg 8-24 capsules ity of capsule 00:00: by mouth 2 [place] 00 (two) Medical times Branch daily as needed for Cough. cephALEXin 2020-0 2020- No [id number] 500mg Take 1 Univers (KEFLEX) 8-24 -29 capsule by ity of 500 mg 00:00: 04:59 mouth 4 [place] capsule 00 :00 (four) Medical times Branch daily for 4 days. cephALEXin 2020-0 2020- No [id number] 500mg Take 1 Univers (KEFLEX) 8-24 08-29 capsule by ity of 500 mg 00:00: 04:59 mouth 4 [place] capsule 00 :00 (four) Medical times Branch daily for 4 days. cephALEXin 2020-0 2020- No [id number] 500mg Take 1 Univers (KEFLEX) 8-24 08-29 capsule by ity of 500 mg 00:00: 04:59 mouth 4 [place] capsule 00 :00 (four) Medical times Branch daily for 4 days. cephALEXin 2020- No [id number] 500mg Take 1 Univers (KEFLEX) 8-24 08-29 capsule by ity of 500 mg 00:00: 04:59 mouth 4 [place] capsule 00 :00 (four) Medical times Branch daily for 4 days. cetirizine Yes [id number] 10mg Take 1 U nivers (ZYRTEC) 10 8-20 tablet by ity of mg tablet 00:00: mouth [place] 00 daily. Medical Branch famotidine Yes [id number] 40mg Take 1 U nivers 40 mg 8-20 tablet by ity of tablet 00:00: mouth 2 [place] 00 (two) Medical times Branch daily. montelukast Yes [id number] 10mg Take 1 Univers 10 mg 8-20 tablet by ity of tablet 00:00: mouth [place] 00 daily. Medical Branch cetirizine Yes [id number] 10mg Take 1 U nivers (ZYRTEC) 10 8-20 tablet by ity of mg tablet 00:00: mouth [place] 00 daily. Medical Branch famotidine Yes [id number] 40mg Take 1 U nivers 40 mg 8-20 tablet by ity of tablet 00:00: mouth 2 [place] 00 (two) Medical times Branch daily. montelukast Yes [id number] 10mg Take 1 Univers 10 mg 8-20 tablet by ity of tablet 00:00: mouth [place] 00 daily. Medical Branch cetirizine Yes [id number] 10mg Take 1 U nivers (ZYRTEC) 10 8-20 tablet by ity of mg tablet 00:00: mouth [place] 00 daily. Medical Branch famotidine Yes [id number] 40mg Take 1 U nivers 40 mg 8-20 tablet by ity of tablet 00:00: mouth 2 [place] 00 (two) Medical times Branch daily. montelukast Yes [id number] 10mg Take 1 Univers 10 mg 8-20 tablet by ity of tablet 00:00: mouth [place] 00 daily. Medical Branch cetirizine Yes [id number] 10mg Take 1 U nivers (ZYRTEC) 10 8-20 tablet by ity of mg tablet 00:00: mouth [place] 00 daily. Medical Branch famotidine Yes [id number] 40mg Take 1 U nivers 40 mg 8-20 tablet by ity of tablet 00:00: mouth 2 [place] 00 (two) Medical times Branch daily. montelukast 0 Yes [id number] 10mg Take 1 Univers 10 mg 8-20 tablet by ity of tablet 00:00: mouth [place] 00 daily. Medical Branch cetirizine Yes [id number] 10mg Take 1 U nivers (ZYRTEC) 10 8-20 tablet by ity of mg tablet 00:00: mouth [place] 00 daily. Medical Branch famotidine Yes [id number] 40mg Take 1 U nivers 40 mg 8-20 tablet by ity of tablet 00:00: mouth 2 (two) Medical times Branch daily. montelukast Yes [id number] 10mg Take 1 Univers 10 mg 8-20 tablet by ity of tablet 00:00: mouth [place] 00 daily. Medical Branch cetirizine Yes [id number] 10mg Take 1 U nivers (ZYRTEC) 10 8-20 tablet by ity of mg tablet 00:00: mouth [place] 00 daily. Medical Branch famotidine Yes [id number] 40mg Take 1 U nivers 40 mg 8-20 tablet by ity of tablet 00:00: mouth 2 00 (two) Medical times Branch daily. montelukast Yes [id number] 10mg Take 1 Univers 10 mg 8-20 tablet by ity of tablet 00:00: mouth [place] 00 daily. Medical Branch cetirizine Yes [id number] 10mg Take 1 U nivers (ZYRTEC) 10 8-20 tablet by ity of mg tablet 00:00: mouth [place] 00 daily. Medical Branch famotidine Yes [id number] 40mg Take 1 U nivers 40 mg 8-20 tablet by ity of tablet 00:00: mouth 2 [place] 00 (two) Medical times Branch daily. montelukast Yes [id number] 10mg Take 1 Univers 10 mg 8-20 tablet by ity of tablet 00:00: mouth [place] 00 daily. Medical Branch cetirizine Yes [id number] 10mg Take 1 U nivers (ZYRTEC) 10 8-20 tablet by ity of mg tablet 00:00: mouth [place] 00 daily. Medical Branch famotidine Yes [id number] 40mg Take 1 U nivers 40 mg 8-20 tablet by ity of tablet 00:00: mouth 2 [place] 00 (two) Medical times Branch daily. montelukast Yes [id number] 10mg Take 1 Univers 10 mg 8-20 tablet by ity of tablet 00:00: mouth [place] 00 daily. Medical Branch cetirizine Yes [id number] 10mg Take 1 U nivers (ZYRTEC) 10 8-20 tablet by ity of mg tablet 00:00: mouth [place] 00 daily. Medical Branch famotidine Yes [id number] 40mg Take 1 U nivers 40 mg 8-20 tablet by ity of tablet 00:00: mouth 2 [place] 00 (two) Medical times Branch daily. montelukast Yes [id number] 10mg Take 1 Univers 10 mg 8-20 tablet by ity of tablet 00:00: mouth [place] 00 daily. Medical Branch cetirizine Yes [id number] 10mg Take 1 U nivers (ZYRTEC) 10 8-20 tablet by ity of mg tablet 00:00: mouth [place] 00 daily. Medical Branch famotidine Yes [id number] 40mg Take 1 U nivers 40 mg 8-20 tablet by ity of tablet 00:00: mouth 2 [place] 00 (two) Medical times Branch daily. montelukast Yes [id number] 10mg Take 1 Univers 10 mg 8-20 tablet by ity of tablet 00:00: mouth [place] 00 daily. Medical Branch predniSONE 2020- No [id number] 40mg Take 2 [facility] 20 mg 8-20 08-28 tablets by ity of tablet 00:00: 04:59 mouth [place] 00 :00 daily for Medical 7 days. Branch predniSONE 2020-2020- No [id number] 40mg Take 2 [facility] 20 mg 8-20 08-28 tablets by ity of tablet 00:00: 04:59 mouth [place] 00 :00 daily for Medical 7 days. Branch predniSONE 2020-2020- No [id number] 40mg Take 2 [facility] 20 mg 8-20 08-28 tablets by ity of tablet 00:00: 04:59 mouth [place] 00 :00 daily for Medical 7 days. Branch predniSONE 2020- No [id number] 40mg Take 2 [facility] 20 mg 8-20 08-28 tablets by ity of tablet 00:00: 04:59 mouth [place] 00 :00 daily for Medical 7 days. Branch albuterol-i 0 Yes [id number] 1{puff} Inhale 1 [facility] pratropium 8-19 Puff every ity of (COMBIVENT 00:00: 6 [place]six[place] 00 hours. Medical 20-100 Need Branch mcg/actuati appointmen on inhaler t for more refills. albuterol-i 2020- Yes [id number] 1{puff} Inhale 1 [facility] pratropium 8-19 Puff every ity of (COMBIVENT 00:00: 6 [place] 00 hours. Medical 20-100 Need Branch mcg/actuati appointmen on inhaler t for more refills. albuterol-i Yes [id number] 1{puff} Inhale 1 [facility] pratropium 8-19 Puff every ity of (COMBIVENT 00:00: 6 [place]six[place] 00 hours. Medical 20-100 Need Branch mcg/actuati appointmen on inhaler t for more refills. albuterol-i 0 Yes [id number] 1{puff} Inhale 1 [facility] pratropium 8-19 Puff every ity of (COMBIVENT 00:00: 6 [place]six[place] 00 hours. Medical 20-100 Need Branch mcg/actuati appointmen on inhaler t for more refills. albuterol-i 2020- Yes [id number] 1{puff} Inhale 1 [facility] pratropium 8-19 Puff every ity of (COMBIVENT 00:00: 6 [place]six[place] 00 hours. Medical 20-100 Need Branch mcg/actuati appointmen on inhaler t for more refills. albuterol-i Yes [id number] 1{puff} Inhale 1 [facility] pratropium 8-19 Puff every ity of (COMBIVENT 00:00: 6 (six[place] 00 hours. Medical 20-100 Need Branch mcg/actuati appointmen on inhaler t for more refills. albuterol-i 2020-0 Yes [id number] 1{puff} Inhale 1 [facility] pratropium 8-19 Puff every ity of (COMBIVENT 00:00: 6 (six[place] 00 hours. Medical 20-100 Need Branch mcg/actuati appointmen on inhaler t for more refills. albuterol-i 2020-0 Yes [id number] 1{puff} Inhale 1 [facility] pratropium 8-19 Puff every ity of (COMBIVENT 00:00: 6 (six[place] 00 hours. Medical 20-100 Need Branch mcg/actuati appointmen on inhaler t for more refills. albuterol-i 2020-0 Yes [id number] 1{puff} Inhale 1 [facility] pratropium 8-19 Puff every ity of (COMBIVENT 00:00: 6 (six[place] 00 hours. Medical 20-100 Need Branch mcg/actuati appointmen on inhaler t for more refills. albuterol-i 2020-0 Yes [id number] 1{puff} Inhale 1 [facility] pratropium 8-19 Puff every ity of (COMBIVENT 00:00: 6 (six[place] 00 hours. Medical 20-100 Need Branch mcg/actuati appointmen on inhaler t for more refills. hydrOXYzine 2020-0 Yes [id number] 10mg Take 1 [facility] 10 mg 8-17 tablet by ity of tablet 00:00: mouth [place] 00 every 6 Medical (six) Branch hours as needed for Itching. hydrOXYzine 2020-0 Yes [id number] 10mg Take 1 [facility] 10 mg 8-17 tablet by ity of tablet 00:00: mouth [place] 00 every 6 Medical (six) Branch hours as needed for Itching. hydrOXYzine 2020-0 Yes [id number] 10mg Take 1 [facility] 10 mg 8-17 tablet by ity of tablet 00:00: mouth [place] 00 every 6 Medical (six) Branch hours as needed for Itching. hydrOXYzine 2020-0 Yes [id number] 10mg Take 1 [facility] 10 mg 8-17 tablet by ity of tablet 00:00: mouth [place] 00 every 6 Medical (six) Branch hours as needed for Itching. hydrOXYzine 2020-0 Yes [id number] 10mg Take 1 [facility] 10 mg 8-17 tablet by ity of tablet 00:00: mouth [place] 00 every 6 Medical (six) Branch hours as needed for Itching. hydrOXYzine 2020-0 Yes [id number] 10mg Take 1 [facility] 10 mg 8-17 tablet by ity of tablet 00:00: mouth [place] 00 every 6 Medical (six) Branch hours as needed for Itching. hydrOXYzine 2020-0 Yes [id number] 10mg Take 1 [facility] 10 mg 8-17 tablet by ity of tablet 00:00: mouth [place] 00 every 6 Medical (six) Branch hours as needed for Itching. hydrOXYzine 2020-0 Yes [id number] 10mg Take 1 [facility] 10 mg 8-17 tablet by ity of tablet 00:00: mouth [place] 00 every 6 Medical (six) Branch hours as needed for Itching. hydrOXYzine 0 Yes [id number] 10mg Take 1 [facility] 10 mg 8-17 tablet by ity of tablet 00:00: mouth [place] 00 every 6 Medical (six) Branch hours as needed for Itching. hydrOXYzine 2020-0 Yes [id number] 10mg Take 1 [facility] 10 mg 8-17 [...] Indication s: acute pain predniSONE 2020-0 Yes [id number] TAKE ONE [facility] 20 mg 8-12 [id number] TABLET BY ity of tablet 00:00: MOUTH [place] 00 DAILY Medical Branch famotidine 2020-0 Yes [id number] 20mg Take 1 [facility] 20 mg 8-12 tablet by ity of tablet 00:00: mouth 2 [place] 00 (two) Medical times Branch daily. traMADoL 2020-0 Yes [id number] 50mg Take 1 [facility] (ULTRAM) 50 8-12 tablet by ity of mg tablet 00:00: mouth [place] 00 every 6 Medical (six) Branch hours as needed for Pain (scale 7-10). Indication s: acute pain predniSONE 2020-0 Yes [id number] TAKE ONE [facility] 20 mg 8-12 [id number] TABLET BY ity of tablet 00:00: MOUTH [place] 00 DAILY Medical Branch famotidine 2020-0 Yes [id number] 20mg Take 1 [facility] 20 mg 8-12 tablet by ity of tablet 00:00: mouth 2 [place] 00 (two) Medical times Branch daily. traMADoL 2020-0 Yes [id number] 50mg Take 1 [facility] (ULTRAM) 50 8-12 tablet by ity of mg tablet 00:00: mouth [place] 00 every 6 Medical (six) Branch hours as needed for Pain (scale 7-10). Indication s: acute pain predniSONE 2020-0 Yes [id number] TAKE ONE [facility] 20 mg 8-12 [id number] TABLET BY ity of tablet 00:00: MOUTH [place] 00 DAILY Medical Branch famotidine 2020-0 Yes [id number] 20mg Take 1 [facility] 20 mg 8-12 tablet by ity of tablet 00:00: mouth 2 (two) Medical times Branch daily. traMADoL 2020-0 Yes [id number] 50mg Take 1 [facility] (ULTRAM) 50 8-12 tablet by ity of mg tablet 00:00: mouth [place] 00 every 6 Medical (six) Branch hours as needed for Pain (scale 7-10). Indication s: acute pain predniSONE 2020-0 Yes [id number] TAKE ONE [facility] 20 mg 8-12 [id number] TABLET BY ity of tablet 00:00: MOUTH [place] 00 DAILY Medical Branch famotidine 2020-0 Yes [id number] 20mg Take 1 [facility] 20 mg 8-12 tablet by ity of tablet 00:00: mouth 2 [place] 00 (two) Medical times Branch daily. traMADoL 2020-0 Yes [id number] 50mg Take 1 [facility] (ULTRAM) 50 8-12 tablet by ity of mg tablet 00:00: mouth [place] 00 every 6 Medical (six) Branch hours as needed for Pain (scale 7-10). Indication s: acute pain predniSONE 2020-0 Yes [id number] TAKE ONE [facility] 20 mg 8-12 [id number] TABLET BY ity of tablet 00:00: MOUTH [place] 00 DAILY Medical Branch famotidine 2020-0 Yes [id number] 20mg Take 1 [facility] 20 mg 8-12 tablet by ity of tablet 00:00: mouth 2 [place] 00 (two) Medical times Branch daily. traMADoL 2020-0 Yes [id number] 50mg Take 1 [facility] (ULTRAM) 50 8-12 tablet by ity of mg tablet 00:00: mouth [place] 00 every 6 Medical (six) Branch hours as needed for Pain (scale 7-10). Indication s: acute pain predniSONE 2020-0 Yes [id number] TAKE ONE [facility] 20 mg 8-12 [id number] TABLET BY ity of tablet 00:00: MOUTH [place] 00 DAILY Medical Branch famotidine 2020-0 Yes [id number] 20mg Take 1 [facility] 20 mg 8-12 tablet by ity of tablet 00:00: mouth 2 (two) Medical times Branch daily. traMADoL 2020-0 Yes [id number] 50mg Take 1 [facility] (ULTRAM) 50 8-12 tablet by ity of mg tablet 00:00: mouth [place] 00 every 6 Medical (six) Branch hours as needed for Pain (scale 7-10). Indication s: acute pain predniSONE 2020-0 Yes [id number] TAKE ONE [facility] 20 mg 8-12 [id number] TABLET BY ity of tablet 00:00: MOUTH [place] 00 DAILY Medical Branch famotidine 2020-0 Yes [id number] 20mg Take 1 [facility] 20 mg 8-12 tablet by ity of tablet 00:00: mouth 2 (two) Medical times Branch daily. traMADoL 2020-0 Yes [id number] 50mg Take 1 [facility] (ULTRAM) 50 8-12 tablet by ity of mg tablet 00:00: mouth [place] 00 every 6 Medical (six) Branch hours as needed for Pain (scale 7-10). Indication s: acute pain predniSONE 2020-0 Yes [id number] TAKE ONE [facility] 20 mg 8-12 [id number] TABLET BY ity of tablet 00:00: MOUTH [place] 00 DAILY Medical Branch famotidine 2020-0 Yes [id number] 20mg Take 1 [facility] 20 mg 8-12 tablet by ity of tablet 00:00: mouth 2 00 (two) Medical times Branch daily. traMADoL 2020-0 Yes [id number] 50mg Take 1 [facility] (ULTRAM) 50 8-12 tablet by ity of mg tablet 00:00: mouth [place] 00 every 6 Medical (six) Branch hours as needed for Pain (scale 7-10). Indication s: acute pain predniSONE 2020-0 Yes [id number] TAKE ONE [facility] 20 mg 8-12 [id number] TABLET BY ity of tablet 00:00: MOUTH 00 DAILY Medical Branch famotidine 2020-0 Yes [id number] 20mg Take 1 [facility] 20 mg 8-12 tablet by ity of tablet 00:00: mouth 2 [place] 00 (two) Medical times Branch daily. traMADoL 2020-0 Yes [id number] 50mg Take 1 [facility] (ULTRAM) 50 8-12 tablet by ity of mg tablet 00:00: mouth [place] 00 every 6 Medical (six) Branch hours as needed for Pain (scale 7-10). Indication s: acute pain predniSONE 2020-0 Yes [id number] TAKE ONE [facility] 20 mg 8-12 [id number] TABLET BY ity of tablet 00:00: MOUTH [place] DAILY Medical Branch famotidine 2020-0 Yes [id number] 20mg Take 1 [facility] 20 mg 8-12 tablet by ity of tablet 00:00: mouth 2 [place] (two) Medical times Branch daily. cephALEXin 2020-0 1- No [id number] 500mg Take 1 [facility] (KEFLEX) 8-12 08-24 [id number] capsule by it y of 500 mg [...] ity of tablet 00:00: Medical Branch mirtazapine 1-0 Yes Univer s 7.5 mg 7-29 ity of tablet 00:00: [place] [facility] omeprazole 2021-0 Yes [facility] 40 mg 7-29 ity of capsule 00:00: [place] [facility] mirtazapine 2020-0 Yes Univer s 7.5 mg 7-29 ity of tablet 00:00: [place] [address] Medical Branch omeprazole 2021-0 Yes [facility] 40 mg 7-29 ity of capsule 00:00: [place] [address] Medical Branch mirtazapine 202-0 Yes Univer s 7.5 mg 7-29 ity of tablet 00:00: [place] [address] Medical Branch omeprazole 202-0 Yes [facility] 40 mg 7-29 ity of capsule 00:00: [place] [address] Medical Branch mirtazapine 2020-0 Yes Univer s 7.5 mg 7-29 ity of tablet 00:00: [place] [address] Medical Branch omeprazole 202-0 Yes [facility] 40 mg 7-29 ity of capsule 00:00: [place] [address] Medical Branch mirtazapine 2020-0 Yes Univer s 7.5 mg 7-29 ity of tablet 00:00: [place] [address] Medical Branch omeprazole 2020-0 Yes [facility] 40 mg 7-29 ity of capsule 00:00: [place] [address] Medical Branch mirtazapine 2020-0 Yes Univer s 7.5 mg 7-29 ity of tablet 00:00: [place] [address] Medical Branch omeprazole 2021-0 Yes [facility] 40 mg 7-29 ity of capsule 00:00: [place] [address] Medical Branch mirtazapine 2020-0 Yes Univer s 7.5 mg 7-29 ity of tablet 00:00: [place] [address] Medical Branch omeprazole 2021-0 Yes [facility] 40 mg 7-29 ity of capsule 00:00: [place] [address] Medical Branch mirtazapine 2020-0 Yes Univer s 7.5 mg 7-29 ity of tablet 00:00: [place] [address] Medical Branch omeprazole 2021-0 Yes [facility] 40 mg 7-29 ity of capsule 00:00: [place] [address] Medical Branch mirtazapine 2021-0 Yes Univer s 7.5 mg 7-29 ity of tablet 00:00: [place] [address] Medical Branch omeprazole 2021-0 Yes [facility] 40 mg 7-29 ity of capsule 00:00: [place] [address] Medical Branch mirtazapine 2020-0 Yes Univer s 7.5 mg 7-29 ity of tablet 00:00: [place] [address] Medical Branch omeprazole 2021-0 Yes [facility] 40 mg 7-29 ity of capsule 00:00: [place] [address] Medical Branch cyclobenzap 2020-0 Yes Univer s rine 10 mg 7-27 ity of tablet 00:00: [place] 00 Medical Branch cyclobenzap 202-0 Yes Univer s rine 10 mg 7-27 ity of tablet 00:00: [place] 00 Medical Branch cyclobenzap 2020-0 Yes Univer s rine 10 mg 7-27 ity of tablet 00:00: [place] 00 Medical Branch cyclobenzap 2020-0 Yes Univer s rine 10 mg 7-27 ity of tablet 00:00: [place] [facility] cyclobenzap 2020-0 Yes Univer s rine 10 mg 7-27 ity of tablet 00:00: [place] [address] Medical Branch cyclobenzap 2020-0 Yes Univer s rine 10 mg 7-27 ity of tablet 00:00: [place] [facility] cyclobenzap 2020-0 Yes Univer s rine 10 mg 7-27 ity of tablet 00:00: [place] [address] Medical Branch cyclobenzap 2020-0 Yes Univer s rine 10 mg 7-27 ity of tablet 00:00: [place] [facility] cyclobenzap 2020-0 Yes Univer s rine 10 mg 7-27 ity of tablet 00:00: [place] [address] Medical Branch cyclobenzap 2020-0 Yes Univer s rine 10 mg 7-27 ity of tablet 00:00: [place] 00 Medical Branch doxepin 100 2021-0 Yes Univer s mg capsule 7-19 ity of 00:00: [place] 00 Medical Branch doxepin 100 2021-0 Yes Univer s mg capsule 7-19 ity of 00:00: [place] 00 Medical Branch doxepin 100 2021-0 Yes Univer s mg capsule 7-19 ity of 00:00: [place] 00 Medical Branch doxepin 100 2021-0 Yes Univer s mg capsule 7-19 ity of 00:00: [place] 00 Medical Branch doxepin 100 2021-0 Yes Univer s mg capsule 7-19 ity of 00:00: [place] 00 Medical Branch doxepin 100 2021-0 Yes Univer s mg capsule 7-19 ity of 00:00: [place] 00 Medical Branch doxepin 100 2021-0 Yes Univer s mg capsule 7-19 ity of 00:00: [place] 00 Medical Branch doxepin 100 2021-0 Yes Univer s mg capsule 7-19 ity of 00:00: [place] [facility] doxepin 100 2020-0 Yes Univer s mg capsule 7-19 ity of 00:00: [place] [facility] doxepin 100 2020-0 Yes Univer s mg capsule 7-19 ity of 00:00: [place] [facility] BELSOMRA 20 2020-0 Yes Univer s mg Tab 6-25 ity of 00:00: [place] [facility] BELSOMRA 20 2020-0 Yes Univer s mg Tab 6-25 ity of 00:00: [place] [facility] BELSOMRA 20 2020-0 Yes Univer s mg Tab 6-25 ity of 00:00: [place] [facility] BELSOMRA 20 2020-0 Yes Univer s mg Tab 6-25 ity of 00:00: [place] [facility] BELSOMRA 20 2020-0 Yes Univer s mg Tab 6-25 ity of 00:00: [place] [facility] BELSOMRA 20 2020-0 Yes Univer s mg Tab 6-25 ity of 00:00: [place] [facility] BELSOMRA 20 2020-0 Yes Univer s mg Tab 6-25 ity of 00:00: [place] [facility] BELSOMRA 20 2020-0 Yes Univer s mg Tab 6-25 ity of 00:00: [place] [facility] BELSOMRA 20 2020-0 Yes Univer s mg Tab 6-25 ity of 00:00: [place] [facility] BELSOMRA 20 2020-0 Yes Univer s mg Tab 6-25 ity of 00:00: [place] [facility] oxyCODONE-a 0 Yes Univer s cetaminophe 6-24 ity of n 10-325 mg 00:00: [place] per tablet Medical Branch oxyCODONE-a 0 Yes Univer s cetaminophe 6-24 ity of n 10-325 mg 00:00: [place] per tablet Medical Branch oxyCODONE-a 0 Yes Univer s cetaminophe 6-24 ity of n 10-325 mg 00:00: [place] per tablet Medical Branch oxyCODONE-a 0 Yes Univer s [...] tablet 00 Medical Branch CARVEDILOL 0 Yes [id number] TAKE ONE [facility] 6.25 mg 5-27 TABLET BY ity of tablet 00:00: MOUTH [place] 00 TWICE A Medical DAY WITH Branch MEALS FOR 90 DAYS CARVEDILOL 0 Yes [id number] TAKE ONE [facility] 6.25 mg 5-27 TABLET BY ity of tablet 00:00: MOUTH [place] 00 TWICE A Medical DAY WITH Branch MEALS FOR 90 DAYS CARVEDILOL 0 Yes [id number] TAKE ONE [facility] 6.25 mg 5-27 TABLET BY ity of tablet 00:00: MOUTH [place] 00 TWICE A Medical DAY WITH Branch MEALS FOR 90 DAYS CARVEDILOL 0 Yes [id number] TAKE ONE [facility] 6.25 mg 5-27 TABLET BY ity of tablet 00:00: MOUTH [place] 00 TWICE A Medical DAY WITH Branch MEALS FOR 90 DAYS CARVEDILOL 0 Yes [id number] TAKE ONE [facility] 6.25 mg 5-27 TABLET BY ity of tablet 00:00: MOUTH [place] 00 TWICE A Medical DAY WITH Branch MEALS FOR 90 DAYS CARVEDILOL 2020-0 Yes [id number] TAKE ONE [facility] 6.25 mg 5-27 TABLET BY ity of tablet 00:00: MOUTH [place] 00 TWICE A Medical DAY WITH Branch MEALS FOR 90 DAYS CARVEDILOL 2020-0 Yes [id number] TAKE ONE [facility] 6.25 mg 5-27 TABLET BY ity of tablet 00:00: MOUTH [place] 00 TWICE A Medical DAY WITH Branch MEALS FOR 90 DAYS CARVEDILOL 2020-0 Yes [id number] TAKE ONE [facility] 6.25 mg 5-27 TABLET BY ity of tablet 00:00: MOUTH [place] 00 TWICE A Medical DAY WITH Branch MEALS FOR 90 DAYS CARVEDILOL 2020-0 Yes [id number] TAKE ONE [facility] 6.25 mg 5-27 TABLET BY ity of tablet 00:00: MOUTH [place] 00 TWICE A Medical DAY WITH Branch MEALS FOR 90 DAYS CARVEDILOL 2020-0 Yes [id number] TAKE ONE [facility] 6.25 mg 5-27 TABLET BY ity of tablet 00:00: MOUTH [place] 00 TWICE A Medical DAY WITH Branch MEALS FOR 90 DAYS methylPREDN 2019- Yes [id number] Take by [facility] ISolone 2-07 mouth ity of (MEDROL, 00:00: SEE-INSTRU [place] NINI,) 4 mg 00 CTIONS. Medica l tablets follow Branch package directions cetirizine 2019-06 Yes [id number] 10mg Take 1 U nivers 10 mg 2-07 tablet by ity of tablet 00:00: mouth [place] 00 daily. Medical Branch methylPREDN 2019- Yes [id number] Take by [facility] ISolone 2-07 mouth ity of (MEDROL, 00:00: SEE-INSTRU [place] NINI,) 4 mg 00 CTIONS. Medica l tablets follow Branch package directions cetirizine 2019- Yes [id number] 10mg Take 1 U nivers 10 mg 2-07 tablet by ity of tablet 00:00: mouth [place] 00 daily. Medical Branch methylPREDN 2019- Yes [id number] Take by [facility] ISolone 2-07 mouth ity of (MEDROL, 00:00: SEE-INSTRU [place] NINI,) 4 mg 00 CTIONS. Medica l tablets follow Branch package directions cetirizine 2019-06 Yes [id number] 10mg Take 1 U nivers 10 mg 2-07 tablet by ity of tablet 00:00: mouth [place] 00 daily. Medical Branch methylPREDN 2019- Yes [id number] Take by [facility] ISolone 2-07 9106 mouth ity of (MEDROL, 00:00: SEE-INSTRU [place] NINI,) 4 mg 00 CTIONS. Medica l tablets follow Branch package directions cetirizine 2019- Yes [id number] 10mg Take 1 U nivers 10 mg 2-07 tablet by ity of tablet 00:00: mouth [place] 00 daily. Medical Branch methylPREDN 2019- Yes [id number] Take by [facility] ISolone 2- 9106 mouth ity of (MEDROL, 00:00: SEE-INSTRU [place] NINI,) 4 mg 00 CTIONS. Medica l tablets follow Branch package directions cetirizine 2019-06 Yes [id number] 10mg Take 1 U nivers 10 mg 2-07 tablet by ity of tablet 00:00: mouth [place] 00 daily. Medical Branch methylPREDN 2019-06 Yes [id number] Take by [facility] ISolone 2 9106 mouth ity of (MEDROL, 00:00: SEE-INSTRU [place] NINI,) 4 mg 00 CTIONS. Medica l tablets follow Branch package directions cetirizine 2019-06 Yes [id number] 10mg Take 1 U nivers 10 mg 2-07 tablet by ity of tablet 00:00: mouth [place] 00 daily. Medical Branch methylPREDN 2019-06 Yes [id number] Take by [facility] ISolone 2 9106 mouth ity of (MEDROL, 00:00: SEE-INSTRU [place]INI,) 4 mg 00 CTIONS. Medica l tablets follow Branch package directions cetirizine 2019-06 Yes [id number] 10mg Take 1 U nivers 10 mg 2-07 tablet by ity of tablet 00:00: mouth [place] 00 daily. Medical Branch methylPREDN 2019- Yes [id number] Take by [facility] ISolone 207 mouth ity of (MEDROL, 00:00: SEE-INSTRU [place]INI,) 4 mg 00 CTIONS. Medica l tablets follow Branch package directions cetirizine 2019-06 Yes [id number] 10mg Take 1 U nivers 10 mg 2-07 tablet by ity of tablet 00:00: mouth [place] 00 daily. Medical Branch methylPREDN 2019- Yes [id number] Take by [facility] ISolone 2-07 mouth ity of (MEDROL, 00:00: SEE-INSTRU [place]I,) 4 mg 00 CTIONS. Medica l tablets follow Branch package directions cetirizine 2019-06 Yes [id number] 10mg Take 1 U nivers 10 mg 2-07 tablet by ity of tablet 00:00: mouth [place] 00 daily. Medical Branch methylPREDN 2019-06 Yes [id number] Take by [facility] ISolone 2-07 mouth ity of (MEDROL, 00:00: SEE-INSTRU [place] NINI,) 4 mg 00 CTIONS. Medica l tablets follow Branch package directions cetirizine 2019-06 Yes [id number] 10mg Take 1 U nivers 10 mg 2-07 tablet by ity of tablet 00:00: mouth [place] 00 daily. Medical Branch benzonatate 2019-06- No [id number] 100mg Take 1 [facility] (TESSALON 2- 08-24 capsule by ity of PERLROSELINE) 100 00:00: 00:00 mouth 3 [place] mg capsule 00 :00 (three) Medica l times Branch daily as needed for Cough. budesonide- Yes [id number] 2{puff} Inhale 2 [facility] formoteroL 02-08 [id number] Puffs 2 ity of (SYMBICORT) 00:00: (two) [place] 160-4.5 00 times Medical mcg/actuati daily. Branch on inhaler budesonide Yes [id number] 2{puff} Inhale 2 [facility] formoteroL 02-08 [id number] Puffs 2 ity of (SYMBICORT) 00:00: (two) [place] 160-4.5 00 times Medical mcg/actuati daily. Branch on inhaler budesonide Yes [id number] 2{puff} Inhale 2 [facility] formoteroL 8- [id number] Puffs 2 ity of (SYMBICORT) 00:00: (two) [place] 160-4.5 00 times Medical mcg/actuati daily. Branch on inhaler budesonide Yes [id number] 2{puff} Inhale 2 [facility] formoteroL 8- [id number] Puffs 2 ity of (SYMBICORT) 00:00: (two) [place] 160-4.5 00 times Medical mcg/actuati daily. Branch on inhaler budesonide Yes [id number] 2{puff} Inhale 2 [facility] formoteroL 8-21 [id number] Puffs 2 ity of (SYMBICORT) 00:00: (two) [place] 160-4.5 00 times Medical mcg/actuati daily. Branch on inhaler budesonide- 2020-0 Yes [id number] 2{puff} Inhale 2 [facility] formoteroL 8-21 [id number] Puffs 2 ity of (SYMBICORT) 00:00: (two) [place] 160-4.5 00 times Medical mcg/actuati daily. Branch on inhaler budesonide- 2020-0 Yes [id number] 2{puff} Inhale 2 [facility] formoteroL 8-21 [id number] Puffs 2 ity of (SYMBICORT) 00:00: (two) [place] 160-4.5 00 times Medical mcg/actuati daily. Branch on inhaler budesonide- 2020-0 Yes [id number] 2{puff} Inhale 2 [facility] formoteroL 8-21 [id number] Puffs 2 ity of (SYMBICORT) 00:00: (two) [place] 160-4.5 00 times Medical mcg/actuati daily. Branch on inhaler budesonide- 2020-0 Yes [id number] 2{puff} Inhale 2 [facility] formoteroL 8-21 [id number] Puffs 2 ity of (SYMBICORT) 00:00: (two) [place] 160-4.5 00 times Medical mcg/actuati daily. Branch on inhaler budesonide- 2020-0 Yes [id number] 2{puff} Inhale 2 [facility] formoteroL 8-21 [id number] Puffs 2 ity of (SYMBICORT) 00:00: (two) [place] 160-4.5 00 times Medical mcg/actuati daily. Branch on inhaler clonazePAM 2020-0 Yes 1mg Take 1 mg Un kizzy (KLONOPIN) 5-20 by mouth ity o f 1 mg tablet 14:46: daily. [address] Branch vit A/vit 2020-0 Yes Take by Unive rs C/vit 5-20 mouth. ity of E/zinc/donell 14:46: [place] [facility] ([place] [address] Medical AREDS ORAL) Branch clonazePAM 2020-0 Yes 1mg Take 1 mg Un kizzy (KLONOPIN) 5-20 by mouth ity o f 1 mg tablet 14:46: daily. [address] vit A/vit 2020-0 Yes Take by Unive rs C/vit 5-20 mouth. ity of E/zinc/donell 14:46: [facility] [place] ([place] [address] Medical AREDS ORAL) Branch clonazePAM 2020-0 Yes 1mg Take 1 mg Un kizzy (KLONOPIN) 5-20 by mouth ity o f 1 mg tablet 14:46: daily. [address] vit A/vit 2020-0 Yes Take by Unive rs C/vit 5-20 mouth. ity of E/zinc/donell 14:46: [facility] [place] ([place] [address] Medical AREDS ORAL) Branch clonazePAM 2020-0 Yes 1mg Take 1 mg Un kizzy (KLONOPIN) 5-20 by mouth ity o f 1 mg tablet 14:46: daily. [address] vit A/vit 2020-0 Yes Take by Unive rs C/vit 5-20 mouth. ity of E/zinc/donell 14:46: [facility] [place] ([place] [address] Medical AR[employer] ORAL) Branch clonazePAM 2020-0 Yes 1mg Take 1 mg Un kizzy (KLONOPIN) 5-20 by mouth ity o f 1 mg tablet 09:46: daily. [address] vit A/vit 2020-0 Yes Take by Unive rs C/vit 5-20 mouth. ity of E/zinc/donell 09:46: [facility] [place] ([place] [address] Medical [employer]AL) Branch clonazePAM 2020-0 Yes 1mg Take 1 mg Un kizzy (KLONOPIN) 5-20 by mouth ity o f 1 mg tablet 09:46: daily. [address] vit A/vit 2020-0 Yes Take by Unive rs C/vit 5-20 mouth. ity of E/zinc/donell 09:46: [facility] [place] ([place] [address] Medical [employer]AL) Branch clonazePAM 2020-0 Yes 1mg Take 1 mg Un kizzy (KLONOPIN) 5-20 by mouth ity o f 1 mg tablet 09:46: daily. [address] vit A/vit 2020-0 Yes Take by Unive rs C/vit 5-20 mouth. ity of E/zinc/donell 09:46: [facility] [place] ([place] [address] Medical AR[employer] ORAL) Branch clonazePAM 2020-0 Yes 1mg Take 1 mg Un kizzy (KLONOPIN) 5-20 by mouth ity o f 1 mg tablet 09:46: daily. [address] vit A/vit 2020-0 Yes Take by Unive rs C/vit 5-20 mouth. ity of E/zinc/donell 09:46: [facility] [place] ([facility] Medical AREDS ORAL) Branch clonazePAM 2020-0 Yes 1mg Take 1 mg Un kizzy (KLONOPIN) 5-20 by mouth ity o f 1 mg tablet 09:46: daily. [address] vit A/vit 2020-0 Yes Take by Unive rs C/vit 5-20 mouth. ity of E/zinc/donell 09:46: [facility] [place] ([place] [address] Medical AR[employer] ORAL) Branch clonazePAM 2020-0 Yes 1mg Take 1 mg Un kizzy (KLONOPIN) 5-20 by mouth ity o f 1 mg tablet 09:46: daily. [address] vit A/vit 2020-0 Yes Take by Unive rs C/vit 5-20 mouth. ity of E/zinc/donell 09:46: [facility] [place] ([place] [address] Medical [employer]AL) Branch benzonatate 0 2021- No [id number] 100mg Take 1 [facility] (TESSALON 5-20 08-24 capsule by ity of DAVID) 100 00:00: 00:00 mouth [place] capsule 00 :00 (three) Medica l times Branch daily as needed for Cough. budesonide- 2020-0 Yes [id number] 2{puff} Inhale 2 Univers formoteroL 5-12 Puffs 2 ity of (SYMBICORT) 00:00: (two) [place] 160-4.5 00 times Medical mcg/actuati daily. Branch on inhaler budesonide- 2020-0 Yes [id number] 2{puff} Inhale 2 Univers formoteroL 5-12 Puffs 2 ity of (SYMBICORT) 00:00: (two) [place] 160-4.5 00 times Medical mcg/actuati daily. Branch on inhaler budesonide- 2020-0 Yes [id number] 2{puff} Inhale 2 [facility] formoteroL 5-12 Puffs 2 ity of (SYMBICORT) 00:00: (two) [place] 160-4.5 00 times Medical mcg/actuati daily. Branch on inhaler budesonide- 2020-0 Yes [id number] 2{puff} Inhale 2 [facility] formoteroL 5-12 Puffs 2 ity of (SYMBICORT) 00:00: (two) [place] 160-4.5 00 times Medical mcg/actuati daily. Branch on inhaler budesonide- 2019-0 Yes [id number] 2{puff} Inhale 2 [facility] formoteroL 5-12 Puffs 2 ity of (SYMBICORT) 00:00: (two) [place] 160-4.5 00 times Medical mcg/actuati daily. Branch on inhaler budesonide- 2019-0 Yes [id number] 2{puff} Inhale 2 Univers formoteroL 5-12 Puffs 2 ity of (SYMBICORT) 00:00: (two) [place] 160-4.5 00 times Medical mcg/actuati daily. Branch on inhaler budesonide- 2019-0 Yes [id number] 2{puff} Inhale 2 [facility] formoteroL 5-12 Puffs 2 ity of (SYMBICORT) 00:00: (two) [place] 160-4.5 00 times Medical mcg/actuati daily. Branch on inhaler budesonide- 2019-0 Yes [id number] 2{puff} Inhale 2 [facility] formoteroL 5-12 Puffs 2 ity of (SYMBICORT) 00:00: (two) [place] 160-4.5 00 times Medical mcg/actuati daily. Branch on inhaler budesonide- 2019-0 Yes [id number] 2{puff} Inhale 2 [facility] formoteroL 5-12 Puffs 2 ity of (SYMBICORT) 00:00: (two) [place] 160-4.5 00 times Medical mcg/actuati daily. Branch on inhaler budesonide- 2020-0 Yes [id number] 2{puff} Inhale 2 [facility] formoteroL 5-12 Puffs 2 ity of (SYMBICORT) 00:00: (two) [place] 160-4.5 00 times Medical mcg/actuati daily. Branch on inhaler albuterol 2019-0 Yes [id number] 2{puff} Inhale 2 Univers 90 4-03 Puffs ity of mcg/actuati 00:00: every 6 [place] as on inhaler 00 (six) Medical hours as Branch needed for Wheezing or Shortness of Breath. albuterol 2020-0 Yes [id number] 2{puff} Inhale 2 [facility] 90 4-03 Puffs ity of mcg/actuati 00:00: every 6 [place] as on inhaler 00 (six) Medical hours as Branch needed for Wheezing or Shortness of Breath. albuterol 2020-0 Yes [id number] 2{puff} Inhale 2 [facility] 90 4-03 Puffs ity of mcg/actuati 00:00: every 6 [place] as on inhaler 00 (six) Medical hours as Branch needed for Wheezing or Shortness of Breath. albuterol 2020-0 Yes [id number] 2{puff} Inhale 2 [facility] 90 4-03 Puffs ity of mcg/actuati 00:00: every 6 [place] as on inhaler 00 (six) Medical hours as Branch needed for Wheezing or Shortness of Breath. albuterol 2020-0 Yes [id number] 2{puff} Inhale 2 [facility] 90 4-03 Puffs ity of mcg/actuati 00:00: every 6 [place] as on inhaler 00 (six) Medical hours as Branch needed for Wheezing or Shortness of Breath. albuterol 2020-0 Yes [id number] 2{puff} Inhale 2 [facility] 90 4-03 Puffs ity of mcg/actuati 00:00: every 6 [place] as on inhaler 00 (six) Medical hours as Branch needed for Wheezing or Shortness of Breath. albuterol 2020-0 Yes [id number] 2{puff} Inhale 2 [facility] 90 4-03 Puffs ity of mcg/actuati 00:00: every 6 [place] as on inhaler 00 (six) Medical hours as Branch needed for Wheezing or Shortness of Breath. albuterol 2020-0 Yes [id number] 2{puff} Inhale 2 [facility] 90 4-03 Puffs ity of mcg/actuati 00:00: every 6 [place] as on inhaler 00 (six) Medical hours as Branch needed for Wheezing or Shortness of Breath. albuterol 2020-0 Yes [id number] 2{puff} Inhale 2 [facility] 90 4-03 Puffs ity of mcg/actuati 00:00: every 6 [place] as on inhaler 00 (six) Medical hours as Branch needed for Wheezing or Shortness of Breath. albuterol 2019-0 Yes [id number] 2{puff} Inhale 2 [facility] 90 4-03 Puffs ity of mcg/actuati 00:00: every 6 [place] as on inhaler 00 (six) Medical hours as Branch needed for Wheezing or Shortness of Breath. traMADol 50 2018- Yes [id number] 50mg Take 1 [facility] mg tablet 9-16 [id number] tablet by ity of 00:00: mouth [place] 00 every 6 Medical (six) Branch hours as needed for Pain (scale 4-6). ibuprofen 2018- Yes [id number] 800mg Take 1 [facility] 800 mg 9-16 [id number] tablet by ity of tablet 00:00: mouth 3 (three) Medical times Branch daily with meals. ranitidine 2018- Yes [id number] 150mg Take 1 Univers 150 mg 9-16 [id number] tablet by ity of tablet 00:00: mouth 2 (two) Medical times Branch daily. traMADol 50 Yes [id number] 50mg Take 1 U nivers mg tablet 9-16 tablet by ity o f 00:00: mouth [place] 00 every 6 Medical (six) Branch hours as needed for Pain (scale 4-6). ibuprofen 2018-0 Yes [id number] 800mg Take 1 Un kiz[place] 800 mg 9-16 tablet by ity of tablet 00:00: mouth 3 (three) Medical times Branch daily with meals. ranitidine 2018-0 Yes [id number] 150mg Take 1 U nivers 150 mg 9-16 tablet by ity of tablet 00:00: mouth 2 (two) Medical times Branch daily. traMADol 50 0 Yes [id number] 50mg Take 1 U nivers mg tablet 9-16 tablet by ity o f 00:00: mouth [place] 00 every 6 Medical (six) Branch hours as needed for Pain (scale 4-6). ibuprofen 2018-0 Yes [id number] 800mg Take 1 Un kiz[place] 800 mg 9-16 tablet by ity of tablet 00:00: mouth 3 (three) Medical times Branch daily with meals. ranitidine 2018-0 Yes [id number] 150mg Take 1 U nivers 150 mg 9-16 tablet by ity of tablet 00:00: mouth 2 (two) Medical times Branch daily. traMADol 50 2019-0 Yes [id number] 50mg Take 1 U nivers mg tablet 9-16 tablet by ity o f 00:00: mouth [place] 00 every 6 Medical (six) Branch hours as needed for Pain (scale 4-6). ibuprofen 2019-0 Yes [id number] 800mg Take 1 Un [place] 800 mg 9-16 tablet by ity of tablet 00:00: mouth 3 (three) Medical times Branch daily with meals. ranitidine 2019-0 Yes [id number] 150mg Take 1 U nivers 150 mg 9-16 tablet by ity of tablet 00:00: mouth 2 (two) Medical times Branch daily. traMADol 50 2018-0 Yes [id number] 50mg Take 1 U nivers mg tablet 9-16 tablet by ity o f 00:00: mouth 00 every 6 Medical (six) Branch hours as needed for Pain (scale 4-6). ibuprofen 2018-0 Yes [id number] 800mg Take 1 Un [place] 800 mg 9-16 tablet by ity of tablet 00:00: mouth (three) Medical times Branch daily with meals. ranitidine 2018-0 Yes [id number] 150mg Take 1 U nivers 150 mg 9-16 tablet by ity of tablet 00:00: mouth (two) Medical times Branch daily. traMADol 50 2018-0 Yes [id number] 50mg Take 1 U nivers mg tablet 9-16 tablet by ity o f 00:00: mouth 00 every 6 Medical (six) Branch hours as needed for Pain (scale 4-6). ibuprofen 2019-0 Yes [id number] 800mg Take 1 Un [place] 800 mg 9-16 tablet by ity of tablet 00:00: mouth (three) Medical times Branch daily with meals. ranitidine 2019-0 Yes [id number] 150mg Take 1 U nivers 150 mg 9-16 tablet by ity of tablet 00:00: mouth (two) Medical times Branch daily. traMADol 50 2019-0 Yes [id number] 50mg Take 1 U nivers mg tablet 9-16 tablet by ity o f 00:00: mouth 00 every 6 Medical (six) Branch hours as needed for Pain (scale 4-6). ibuprofen 2019-0 Yes [id number] 800mg Take 1 Un [place] 800 mg 9-16 tablet by ity of tablet 00:00: mouth 3 (three) Medical times Branch daily with meals. ranitidine 2019-0 Yes [id number] 150mg Take 1 U nivers 150 mg 9-16 tablet by ity of tablet 00:00: mouth (two) Medical times Branch daily. traMADol 50 2019-0 Yes [id number] 50mg Take 1 U nivers mg tablet 9-16 tablet by ity o f 00:00: mouth 00 every 6 Medical (six) Branch hours as needed for Pain (scale 4-6). ibuprofen 2019-0 Yes [id number] 800mg Take 1 Un [place]iz[place] 800 mg 9-16 tablet by ity of tablet 00:00: mouth (three) Medical times Branch daily with meals. ranitidine 2019-0 Yes [id number] 150mg Take 1 U nivers 150 mg 9-16 tablet by ity of tablet 00:00: mouth (two) Medical times Branch daily. traMADol 50 2018-0 Yes [id number] 50mg Take 1 [facility] mg tablet 9-16 [id number] tablet by ity of 00:00: mouth 00 every 6 Medical (six) Branch hours as needed for Pain (scale 4-6). ibuprofen 2019-0 Yes [id number] 800mg Take 1 [facility] 800 mg 9-16 [id number] tablet by ity of tablet 00:00: mouth (three) Medical times Branch daily with meals. ranitidine 2019-0 Yes [id number] 150mg Take 1 [facility] 150 mg 9-16 [id number] tablet by ity of tablet 00:00: mouth (two) Medical times Branch daily. traMADol 50 2018-0 Yes [id number] 50mg Take 1 [facility] mg tablet 9-16 [id number] tablet by ity of 00:00: mouth 00 every 6 Medical (six) Branch hours as needed for Pain (scale 4-6). ibuprofen 2019-0 Yes [id number] 800mg Take 1 [facility] 800 mg 9-16 [id number] tablet by ity of tablet 00:00: mouth 3 (three) Medical times Branch daily with meals. ranitidine 2019-0 Yes [id number] 150mg Take 1 [facility] 150 mg 9-16 [id number] tablet by ity of tablet 00:00: mouth (two) Medical times Branch daily. cetirizine Yes [id number] 10mg Take 1 U nivers 10 mg 9-13 tablet by ity of tablet 00:00: mouth [place] 00 daily. Medical Branch cetirizine Yes [id number] 10mg Take 1 U nivers 10 mg 9-13 tablet by ity of tablet 00:00: mouth [place] 00 daily. Medical Branch cetirizine Yes [id number] 10mg Take 1 U nivers 10 mg 9-13 tablet by ity of tablet 00:00: mouth [place] 00 daily. Medical Branch cetirizine Yes [id number] 10mg Take 1 U nivers 10 mg 9-13 tablet by ity of tablet 00:00: mouth [place] 00 daily. Medical Branch cetirizine Yes [id number] 10mg Take 1 U nivers 10 mg 9-13 tablet by ity of tablet 00:00: mouth [place] 00 daily. Medical Branch cetirizine Yes [id number] 10mg Take 1 U nivers 10 mg 9-13 tablet by ity of tablet 00:00: mouth [place] 00 daily. Medical Branch cetirizine Yes [id number] 10mg Take 1 U nivers 10 mg 9-13 tablet by ity of tablet 00:00: mouth [place] 00 daily. Medical Branch cetirizine Yes [id number] 10mg Take 1 U nivers 10 mg 9-13 tablet by ity of tablet 00:00: mouth [place] 00 daily. Medical Branch cetirizine Yes [id number] 10mg Take 1 U nivers 10 mg 9-13 tablet by ity of tablet 00:00: mouth [place] 00 daily. Medical Branch cetirizine Yes [id number] 10mg Take 1 U nivers 10 mg [...] FIRST DOSE IN THE MORNING fluticasone Yes [id number] 2{spray Use 2 Univers 50 5-08 } Sprays in ity of mcg/actuati 00:00: each [place] on nasal 00 nostril 2 Medica l spray (two) Branch times daily. montelukast Yes [id number] 10mg Take 1 [facility] 10 mg 5-08 tablet by ity of tablet 00:00: mouth [place] 00 daily. Medical Branch fluticasone Yes [id number] 2{spray Use 2 [facility] 50 5-08 } Sprays in ity of mcg/actuati 00:00: each [place] on nasal 00 nostril 2 Medica l spray (two) Branch times daily. montelukast 2018- Yes [id number] 10mg Take 1 [facility] 10 mg 5-08 tablet by ity of tablet 00:00: mouth [place] 00 daily. Medical Branch fluticasone Yes [id number] 2{spray Use 2 [facility] 50 5-08 } Sprays in ity of mcg/actuati 00:00: each [place] on nasal 00 nostril 2 Medica l spray (two) Branch times daily. montelukast 2018- Yes [id number] 10mg Take 1 [facility] 10 mg 5-08 tablet by ity of tablet 00:00: mouth [place] 00 daily. Medical Branch fluticasone Yes [id number] 2{spray Use 2 [facility] 50 5-08 } Sprays in ity of mcg/actuati 00:00: each [place] on nasal 00 nostril 2 Medica l spray (two) Branch times daily. montelukast 2018- Yes [id number] 10mg Take 1 [facility] 10 mg 5-08 tablet by ity of tablet 00:00: mouth [place] 00 daily. Medical Branch fluticasone Yes [id number] 2{spray Use 2 Univers 50 5-08 } Sprays in ity of mcg/actuati 00:00: each [place] on nasal 00 nostril 2 Medica l spray (two) Branch times daily. montelukast 2018- Yes [id number] 10mg Take 1 [facility] 10 mg 5-08 tablet by ity of tablet 00:00: mouth [place] 00 daily. Medical Branch fluticasone Yes [id number] 2{spray Use 2 [facility] 50 5-08 } Sprays in ity of mcg/actuati 00:00: each [place] on nasal 00 nostril 2 Medica l spray (two) Branch times daily. montelukast 2018- Yes [id number] 10mg Take 1 [facility] 10 mg 5-08 tablet by ity of tablet 00:00: mouth [place] 00 daily. Medical Branch fluticasone Yes [id number] 2{spray Use 2 [facility] 50 5-08 } Sprays in ity of mcg/actuati 00:00: each [place] on nasal 00 nostril 2 Medica l spray (two) Branch times daily. montelukast 2019-0 Yes [id number] 10mg Take 1 [facility] 10 mg 5-08 tablet by ity of tablet 00:00: mouth [place] 00 daily. Medical Branch fluticasone 2019-0 Yes [id number] 2{spray Use 2 [facility] 50 5-08 } Sprays in ity of mcg/actuati 00:00: each [place] on nasal 00 nostril 2 Medica l spray (two) Branch times daily. montelukast 2019-0 Yes [id number] 10mg Take 1 [facility] 10 mg 5-08 tablet by ity of tablet 00:00: mouth [place] 00 daily. Medical Branch fluticasone 2019-0 Yes [id number] 2{spray Use 2 [facility] 50 5-08 } Sprays in ity of mcg/actuati 00:00: each [place] on nasal 00 nostril 2 Medica l spray (two) Branch times daily. montelukast 2019-0 Yes [id number] 10mg Take 1 [facility] 10 mg 5-08 tablet by ity of tablet 00:00: mouth [place] 00 daily. Medical Branch fluticasone 2019-0 Yes [id number] 2{spray Use 2 Univers 50 5-08 } Sprays in ity of mcg/actuati 00:00: each [place] on nasal 00 nostril 2 Medica l spray (two) Branch times daily. montelukast 2019-0 Yes [id number] 10mg Take 1 [facility] 10 mg 5-08 tablet by ity of tablet 00:00: mouth [place] 00 daily. Medical Branch Cholecalcif 2019-0 Yes [id number] 5000U Take 1 [facility] [place], 2-25 tablet by ity of Vitamin D3, 00:00: mouth [place] (VITAMIN 00 daily. Medical D3) 5,000 Take with Branc h unit tablet food. Cholecalcif 2019-0 Yes [id number] 5000U Take 1 [facility] [place], 2-25 tablet by ity of Vitamin D3, 00:00: mouth [place] (VITAMIN 00 daily. Medical D3) 5,000 Take with Branc h unit tablet food. Cholecalcif 2019-0 Yes [id number] 5000U Take 1 [facility] [place], 2-25 tablet by ity of Vitamin D3, 00:00: mouth [place] (VITAMIN 00 daily. Medical D3) 5,000 Take with Branc h unit tablet food. Cholecalcif 2019-0 Yes [id number] 5000U Take 1 [facility] [place], 2-25 tablet by ity of Vitamin D3, 00:00: mouth [place] (VITAMIN 00 daily. Medical D3) 5,000 Take with Branc h unit tablet food. Cholecalcif 2019-0 Yes [id number] 5000U Take 1 [facility] [place], 2-25 tablet by ity of Vitamin D3, 00:00: mouth [place] (VITAMIN 00 daily. Medical D3) 5,000 Take with Branc h unit tablet food. Cholecalcif 2019-0 Yes [id number] 5000U Take 1 [facility] [place], 2-25 tablet by ity of Vitamin D3, 00:00: mouth [place] (VITAMIN 00 daily. Medical D3) 5,000 Take with Branc h unit tablet food. Cholecalcif 2018-0 Yes [id number] 5000U Take 1 [facility] [place], 2-25 tablet by ity of Vitamin D3, 00:00: mouth [place] (VITAMIN 00 daily. Medical D3) 5,000 Take with Branc h unit tablet food. Cholecalcif 2018-0 Yes [id number] 5000U Take 1 [facility] [place], 2-25 tablet by ity of Vitamin D3, 00:00: mouth [place] (VITAMIN 00 daily. Medical D3) 5,000 Take with Branc h unit tablet food. Cholecalcif 2018-0 Yes [id number] 5000U Take 1 [facility] [place], 2-25 tablet by ity of Vitamin D3, 00:00: mouth [place] (VITAMIN 00 daily. Medical D3) 5,000 Take with Branc h unit tablet food. Cholecalcif 2018-0 Yes [id number] 5000U Take 1 [facility] [place], 2-25 tablet [...] by ity of tablet 00:00: mouth 2 [place] (two) Medical times Branch daily. SERTraline 2018-0 Yes 100mg Take 100 Un kizzy 100 mg 9-26 mg by ity of tablet 00:00: mouth 2 [place] (two) Medical times Branch daily. SERTraline 2018-0 Yes 100mg Take 100 Un kiz[place] 100 mg 9-26 mg by ity of tablet 00:00: mouth 2 [place] (two) Medical times Branch daily. SERTraline 2018-0 Yes 100mg Take 100 Un [place] 100 mg 9-26 mg by ity of tablet 00:00: mouth 2 [place] (two) Medical times Branch daily. SERTraline 2018-0 Yes 100mg Take 100 Un kiz[place] 100 mg 9-26 mg by ity of tablet 00:00: mouth [place] (two) Medical times Branch daily. Vital Signs Vital Name Observation Time Observation Value Comments Source Systolic blood 2023-01-22 00:30:00 156 [facility]Hg[facility] 2023-01-22 00:30:00 79 mm[Hg] Unive [facility] Heart rate 2023-01-22 00:30:00 74 /min [facility] Respiratory rate 2023-01-22 00:30:00 19 /min [facility] Oxygen saturation in 2023-01-22 00:30:00 96 /min [facility] Arterial blood by [facility] [place] Pulse oximetry Branch Body temperature 2023-01-21 22:02:00 37.11 [place] [facility] Body height 2023-01-21 22:02:00 172.7 cm [facility] Body weight 2023-01-21 22:02:00 96.616 kg [facility] BMI 2023-01-21 22:02:00 32.39 kg/m2 [facility] Systolic blood 2022-12-05 00:15:00 158 mm[Hg] [facility] 2022-12-05 00:15:00 108 mm[Hg] Unive [facility]ity [facility] [place] [facility] Heart rate 2022-12-05 00:15:00 62 /min [facility] [place] [facility] Respiratory rate 2022-12-05 00:15:00 18 /min [facility] [place] [facility] Oxygen saturation in 2022-12-05 00:15:00 96 /min University of Arterial blood by [facility] [place] Pulse oximetry Branch Body temperature 2022-12-04 21:00:00 37 [place] [facility] [place] [facility] Body height 2022-12-04 21:00:00 172.7 cm [facility] [place] [facility] Body weight 2022-12-04 21:00:00 99.791 kg [facility] [place] [facility] BMI 2022-12-04 21:00:00 33.45 kg/m2 [facility] [place] [facility] Systolic blood 2022-04-30 06:00:00 164 mm[Hg] Univer sity of pressure [place] [facility] Diastolic blood 2022-04-30 06:00:00 88 mm[Hg] Unive rsity of pressure [place] [facility] Heart rate 2022-04-30 06:00:00 72 /min [facility] [place] [facility] Respiratory rate 2022-04-30 06:00:00 18 /min [facility] [place] [facility] Oxygen saturation in 2022-04-30 06:00:00 99 /min University of Arterial blood by [facility] [place] Pulse oximetry Branch Body temperature 2022-04-30 03:31:00 37.56 [place] [facility] [place] [facility] Body height 2022-04-30 03:31:00 172.7 cm [facility] [place] [facility] Body weight 2022-04-30 03:31:00 99.791 kg [facility] [place] [facility] BMI 2022-04-30 03:31:00 33.45 kg/m2 [facility] [place] [facility] Systolic blood 2021-10-15 21:13:00 162 mm[Hg] Univer sity of pressure [place] [facility] Diastolic blood 2021-10-15 21:13:00 82 mm[Hg] Unive rsity [facility] [place] [facility] Heart rate 2021-10-15 21:13:00 88 /min [facility] [place] [facility] Body temperature 2021-10-15 21:13:00 37.22 [place] [facility] [place] [facility] Respiratory rate 2021-10-15 21:13:00 19 /min [facility] [place] [facility] Body height 2021-10-15 21:13:00 172.7 cm [facility] [place] [facility] Body weight 2021-10-15 21:13:00 90.719 kg [facility] [place] [facility] BMI 2021-10-15 21:13:00 30.41 kg/m2 [facility] [place] [facility] Oxygen saturation in 2021-10-15 21:13:00 97 /min University of Arterial blood by [facility] [place] Pulse oximetry Branch Systolic blood 2021-08-30 15:57:00 127 mm[Hg] Univer sity of pressure [place] [facility] Diastolic blood 2021-08-30 15:57:00 98 mm[Hg] Unive rsity [facility] [place] [facility] Heart rate 2021-08-30 15:57:00 73 /min [facility] [place] [facility] Respiratory rate 2021-08-30 15:57:00 18 /min [facility] [place] [facility] Body weight 2021-08-30 15:57:00 99.791 kg [facility] [place] [facility] BMI 2021-08-30 15:57:00 33.45 kg/m2 [facility] [place] [facility] Oxygen saturation in 2021-08-30 15:57:00 98 /min University of Arterial blood by [facility] [place] Pulse oximetry Branch Systolic blood 2021-06-24 14:15:00 165 mm[Hg] Univer sity of pressure [place] [facility] Diastolic blood 2021-06-24 14:15:00 82 mm[Hg] Unive rsity of pressure [place] [facility] Heart rate 2021-06-24 14:15:00 95 /min [facility] [place] [facility] Body temperature 2021-06-24 14:15:00 37.33 [place] [facility] [place] [facility] Respiratory rate 2021-06-24 14:15:00 20 /min [facility] [place] [facility] Body weight 2021-06-24 14:15:00 99.791 kg [facility] [place] [facility] BMI 2021-06-24 14:15:00 33.45 kg/m2 [facility] [place] [facility] Oxygen saturation in 2021-06-24 14:15:00 98 /min University of Arterial blood by [facility] [place] Pulse oximetry Branch Heart rate 2021-02-14 05:30:00 106 /min [facility] [place] [facility] Respiratory rate 2021-02-14 05:30:00 16 /min [facility] [place] [facility] Systolic blood 2021-02-14 05:00:00 151 mm[Hg] Univer sity of pressure [place] [facility] Diastolic blood 2021-02-14 05:00:00 90 mm[Hg] Unive rsity of [facility] [place] [facility] Oxygen saturation in 2021-02-14 05:00:00 97 /min University of Arterial blood by [facility] [place] Pulse oximetry Branch Body temperature 2021-02-14 00:57:00 37.33 [place] [facility] [place] [facility] Body weight 2021-02-14 00:57:00 100.699 kg [facility] [place] [facility] BMI 2021-02-14 00:57:00 33.75 kg/m2 [facility] [place] [facility] Systolic blood 2021-02-13 11:30:00 164 mm[Hg] Univer sity of [facility] [place] [facility] Diastolic blood 2021-02-13 11:30:00 85 mm[Hg] Unive rsity of [facility] [place] [facility] Heart rate 2021-02-13 11:30:00 91 /min [facility] [place] [facility] Respiratory rate 2021-02-13 11:30:00 16 /min [facility] [place] [facility] Oxygen saturation in 2021-02-13 11:30:00 96 /min [facility] of Arterial blood by [facility] [place] Pulse oximetry Branch Body temperature 2021-02-13 05:45:00 36.89 [place] [facility] [place] [facility] Systolic blood 2021-02-11 14:24:00 139 mm[Hg] Univer [facility]ity of [facility] [place] [facility] Diastolic blood 2021-02-11 14:24:00 75 mm[Hg] Unive rsity [facility] [place] [facility] Heart rate 2021-02-11 14:19:00 83 /min [facility] [place] [facility] Body temperature 2021-02-11 14:19:00 36.83 [place] [facility] [place] [facility] Respiratory rate 2021-02-11 14:19:00 16 /min [facility] [place] [facility] Body height 2021-02-11 14:19:00 172.7 cm [facility] Body weight 2021-02-11 14:19:00 101.016 kg [facility] BMI 2021-02-11 14:19:00 33.86 kg/m2 [facility] Oxygen saturation in 2021-02-11 14:19:00 97 /min [facility] Arterial blood by [facility] [place] Pulse oximetry Branch Procedures Procedure Date / Time Performing Clinician Source Performed CT ABDOMEN PELVIS W 2023-01-21 23:32:00 Jose Ross [facility] CONTRAST [facility] COVID-19 (ID NOW RAPID 2023-01-21 23:21:00 Jose Ross [facility] TESTING) Medical Branch LIPASE 2023-01-21 22:17:00 Singer [facility] COMP. METABOLIC PANEL 2023-01-21 22:17:00 Jose Ross [facility] ([id number]) [facility] CBC WITH DIFF 2023-01-21 22:17:00 Singer [facility] CT CHEST PULMONARY 2022-12-05 00:55:15 Jamie [facility] ANGIOGRAM Medical Branch D-DIMER 2022-12-04 23:26:00 Jamie [facility] TROPONIN I 2022-12-04 22:02:00 Jamie [facility] COMP. METABOLIC PANEL 2022-12-04 22:02:00 Royer Ayala [facility] ([id number]) [facility] CBC WITH DIFF 2022-12-04 22:02:00 Jamie [facility] RAPID INFLUENZA A/B 2022-12-04 22:02:00 Jamie [facility] N-TERMINAL PRO-BNP 2022-12-04 22:02:00 Jamie [facility] PROCALCITONIN 2022-12-04 22:02:00 Jamie [facility] COVID-19 (ID NOW RAPID 2022-12-04 22:02:00 Royer Ayala [facility] TESTING) [facility] XR CHEST 1 VW 2022-12-04 21:50[facility] 2022-12-04 20:54:21 Doctor Unassigned, No [facility] [place] [facility] Name [facility] EKG-12 LEAD 2022-04-30 06:27:15 Marilyn [facility] TROPONIN I 2022-04-30 05:49:00 Marilyn [facility] XR CHEST 1 VW 2022-04-30 04:16:00 Marilyn [facility] TROPONIN I 2022-04-30 04:00:00 Marilyn [facility] COMP. METABOLIC PANEL 2022-04-30 04:00:00 [facility] [place] [id number] CBC WITH DIFF 2022-04-30 04:00:00 Marilyn [facility] PROTHROMBIN TIME / INR 2022-04-30 04:00:00 [facility] 2022-04-30 04:00:00 [facility] X[facility] FINGERS 2 VW LEFT 2021-10-15 22:06:00 Edd Yuen [facility] NOTICE OF PRIVACY 2021-10-15 21:05:32 Doctor Unassigned, No Univ ersity [facility] PRACTICES [facility] CONSENT/REFUSAL FOR 2021-10-15 21:04:51 Doctor Unassigned, No [facility] [place] [facility]REATMENT Name Medical Branch MAGNESIUM 2021-08-30 16:28:00 Nicolette Campbell [facility] COMP. METABOLIC PANEL 2021-08-30 16:28:00 Nicolette Campbell [facility] ([id number]) [facility] CBC WITH DIFF 2021-08-30 16:28:00 Nicolette Campbell Lynch o [facility] URINALYSIS 2021-06-24 14:44:00 Ross, [facility] CONSENT/REFUSAL FOR 2021-06-24 14:10:11 Doctor Unassigned, No [facility] [place] [facility] TREATMENT Name Medical Branch XR CHEST 1 VW 2021-02-14 03:23:19 Bertin Sanchez [facility] URINALYSIS 2021-02-14 02:54:00 Bertin Sanchez [facility] URINE DRUG (IMMUNOASSAY) 2021-02-14 02:54:00 [facility] Medical Bra nc SCREEN W/O REFLEX TROPONIN I 2021-02-14 01:36:00 Bertin Sanchez [facility] COMP. METABOLIC PANEL 2021-02-14 01:36:00 Bertin Sanchez [facility] ([id number]) Medical Branch CBC WITH DIFF 2021-02-14 01:36:00 Bertin Sanchez [facility] COVID-19 (ID NOW RAPID 2021-02-14 01:26:00 Bertin Sanchez [facility] TESTING) Medical Branch TROPONIN I 2021-02-13 10:56:00 Vishal Agarwal o f [facility] CT CHEST PULMONARY 2021-02-13 10:28:40 Mallory Lopez [facility] ANGIOGRAM Medical Branch XR CHEST 1 VW 2021-02-13 06:37:29 Mallory Lopez [facility] TROPONIN I 2021-02-13 06:27:00 Mallory Lopez [facility] BASIC METABOLIC PANEL 2021-02-13 06:27:00 Mallory Lopez [facility] (NA, K, CL, CO2, Medical Branch GLUCOSE, BUN, CREATININE, CA) CBC WITH DIFF 2021-02-13 06:27:00 Mallory Lopez [facility] D-DIMER 2021-02-13 06:27:00 Mallory Lopez [facility] N-TERMINAL PRO-BNP 2021-02-13 06:27:00 Mallory Lopez [facility] Plan of Care Planned Activity Planned Date Details Comments Source Future Scheduled 2023-02-20 BREAST CANCER [facility] Test 19:51:56 SCREENING [code = BREAST CANCER SCREENING] Future Scheduled 2023-02-20 Screening for [facility] Test 19:51:56 malignant neoplasm of colon (procedure) [code = 141925852] Future Scheduled 2023-02-20 Screening for [facility] Test 19:51:56 malignant neoplasm of colon (procedure) [code = 942630420] Future Scheduled 2023-02-20 HEPATITIS B VACCINES Met [facility] Test 19:51:56 (1 of 3 - Risk 3-dose series) [code = HEPATITIS B VACCINES (1 of 3 - Risk 3-dose series)] Future Scheduled 2023-02-20 SHINGLES VACCINES (2 Met [facility] Test 19:51:56 of 3) [code = SHINGLES VACCINES (2 of 3)] Future Scheduled 2023-02-20 65+ PNEUMOCOCCAL [facility] Test 19:51:56 VACCINE (3 - PCV) [code = 65+ PNEUMOCOCCAL VACCINE (3 - PCV)] Future Scheduled 2023-02-20 COVID-19 VACCINE (3 - [facility] Test 19:51:56 Pfizer series) [code = COVID-19 VACCINE (3 - Pfizer series)] Future Scheduled 2023-02-20 INFLUENZA VACCINE (#1) [facility] Test 19:51:56 [code = INFLUENZA VACCINE (#1)] Future Scheduled 2023-02-20 Screening for [facility] Test 19:51:56 malignant neoplasm of colon (procedure) [code = 594689907] Future Scheduled 2023-02-20 Screening for [facility] Test 19:51:56 malignant neoplasm of colon (procedure) [code = 164906816] Future Scheduled 2023-02-20 Screening for [facility] Test 19:51:56 malignant neoplasm of colon (procedure) [code = 157410162] Future Scheduled 2023-02-20 Hepatitis C screening [facility] Test 19:51:56 (procedure) [code = 017037531] Future Scheduled 2022-09-24 Hepatitis C screening [facility] Test 00:55:22 (procedure) [code = 948165189] Future Scheduled 2022-09-24 BREAST CANCER [facility] Test 00:55:22 SCREENING [code = BREAST CANCER SCREENING] Future Scheduled 2022-09-24 COLONOSCOPY SCREENING [facility] Test 00:55:22 [code = COLONOSCOPY SCREENING] Future Scheduled 2022-09-24 HEPATITIS B VACCINES Met [facility] Test 00:55:22 (1 of 3 - Risk 3-dose series) [code = HEPATITIS B VACCINES (1 of 3 - Risk 3-dose series)] Future Scheduled 2022-09-24 SHINGLES VACCINES (1 Met [facility] Test 00:55:22 of 2) [code = SHINGLES VACCINES (1 of 2)] Future Scheduled 2022-09-24 65+ [facility]OCOCCAL [facility] Test 00:55:22 VACCINE (3 - PCV) [code = 65+ PNEUMOCOCCAL VACCINE (3 - PCV)] Future Scheduled 2022-09-24 COVID-19 VACCINE (3 - [facility] Test 00:55:22 Booster for Pfizer series) [code = COVID-19 VACCINE (3 - Booster for Pfizer series)] Future Scheduled 2022-09-[address] [facility] Test 00:55:22 [code = INFLUENZA VACCINE] Future Scheduled 2022-04-22 Hepatitis C screening [facility] Test 16:30:41 (procedure) [code = 637955807] Future Scheduled 2022-04-22 BREAST CANCER [facility] Test 16:30:41 SCREENING [code = BREAST CANCER SCREENING] Future Scheduled 2022-04-22 COLONOSCOPY SCREENING [facility] Test 16:30:41 [code = COLONOSCOPY SCREENING] Future Scheduled 2022-04-22 HEPATITIS B VACCINES Met [facility] Test 16:30:41 (1 of 3 - Risk 3-dose series) [code = HEPATITIS B VACCINES (1 of 3 - Risk 3-dose series)] Future Scheduled 2022-04-22 SHINGLES VACCINES (1 Met [facility] Test 16:30:41 of 2) [code = SHINGLES VACCINES (1 of 2)] Future Scheduled 2022-04-22 65+ PNEUMOCOCCAL [facility] Test 16:30:41 VACCINE (3 - PCV) [code = 65+ PNEUMOCOCCAL VACCINE (3 - PCV)] Future Scheduled 2022-04-22 COVID-19 VACCINE (3 - [facility] Test 16:30:41 Booster for Pfizer series) [code = COVID-19 VACCINE (3 - Booster for Pfizer series)] Future Scheduled 2022-04-22 INFLUENZA VACCINE Method [facility] Test 16:30:41 [code = INFLUENZA VACCINE] Future Scheduled 65+ PNEUMOCOCCAL [facility] Test VACCINE (2 of 2) [code = 65+ PNEUMOCOCCAL VACCINE (2 of 2)] Future Scheduled [facility] (procedure) [code = 544393303] Future Scheduled BREAST CANCER [facility] Test SCREENING [code = BREAST CANCER SCREENING] Future Scheduled COLONOSCOPY [facility] [code = COLONOSCOPY SCREENING] Future Scheduled SHINGLES VACCINES (#[facility]) [facility] [code = SHINGLES VACCINES (#2)] Future Scheduled [facility] [code = INFLUENZA VACCINE] Encounters Start End Encounter Admission Attending Care Care Encounter Source Date/Time Date/Time Type Type Clinicians Facility Department ID 2022-12-29 Inpatient Urgent [facility] [id number] [facility] 22:46:00 Sonya Service 2021-04-21 Emergency [facility] [id number] Univers 18:27:17 ity [facility] 2021-04-21 Emergency [facility] [id number] Univers 18:11:05 ity [facility] 2021-04-21 Emergency [facility] [id number] Univers 16:10:46 ity [facility] 2021-04-21 Emergency [facility] [id number] Univers 14:58:19 ity [facility] 2021-04-21 Emergency [facility] [id number] Univers 14:56:27 ity [facility] 2021-04-18 Emergency [facility] [id number] Univers 22:14:38 ity [facility] 2021-04-18 Emergency [facility] [id number] Univers [facility]:38[facility] 2023-01-28 2023-01-28 Care Salvador 2.16.840. 2.16.840.1. CLAC [id number] [facility] 19:00:00 19:30:00 OnDem[employer] Marco A 1.249482. 474641.4.6. 7G2 [facility] 4.6.18713 [id number] 2023-01-22 2023-01-22 Care Salvador 2.16.840. 2.16.840.1. CLAC [id number] [facility] 13:30:00 14:00:00 [employer]Dem[employer] Marco A 1.494320. 819027.4.6. CKY [facility] 4.6.78856 [id number] 2023-01-21 2023-01-21 Emergency X SINGER [facility] E[facility] [id number] Univers 17:02:00 21:10:00 JOSE iraheta [facility] 2023-01-21 2023-01-21 Emergency Singer [facility] 1.2.728.014 [id number] Univers 17:02:00 21:10:00 Jose NOGUEIRA 350.1.13.10 i ty of [facility] 4.2.7.2.686 [facility] [id number] [place] [id number] Branch 2022-12-29 2022-12-30 Inpatient Urgent Maxi, [facility] [id number] [facility] 22:46:00 17:43:00 Sonya Service 08 2022-12-25 2022-12-29 Inpatient Emergency Wowo, [facility] [id number] [facility] 21:51:00 22:17:00 Temo Service 04 2022-12-25 2022-12-[address] [facility] [id number] [facility] 13:55:00 13:55:00 04 2022-12-08 2022-12-08 Outpatient Fer, HCAPM HCAPM [id number] [facility] 18:56:00 18:56:00 Yariel 81 [facility] 2022-12-04 2022-12-04 Emergency X WILLIE PINA [facility] E[facility] [id number] Univers 16:02:00 21:32:00 WILLIE PINA yoselyn [facility] 2022-12-04 2022-12-04 Emergency AyalaRoyer hatfield [facility] 1.2.840.1 14 [id number] Univers 16:02:00 21:32:00 SabrinaWillie [facility] 350.1.13.10 ity [facility] 4.2.7.2.686 [facility] [id number] [facility] 014 Branch ([facility]) 2022-11-24 2022-11-24 Care Salvador 2.16.840. 2.16.840.1. CLAC [id number] [facility] 11:00:00 11:30:00 Coordinati Marco A 1.337605. 440731.4.6. 68F Medical on Non 4.6.44493 [id number] Bill[place] 66331 2022-11-19 2022-11-19 Care Salvador 2.16.840. 2.16.840.1. [facility] [id number] [facility] 20:30:00 21:00:00 OnDem[employer] Marco A 1.520666. 965320.4.6. 7ZC Medical 4.6.25288 [id number] 2022-06-17 2022-06-17 Care Torito 2.16.840. 2.16.840.1. CLA [id number] [facility] 20:30:00 21:00:00 OnDemand Cabrera 1.482451. 903627.4.6. 4H7 Medical 4.6.97808 [id number] 2022-05-05 2022-05-06 IHC Follow Philipp Liriano 2.16.840. 2.16.840.1. [id number] [facility] 23:00:00 00:00:00 Up 1.302493. 711662.4.6. GFG Medical 4.6.75076 [id number] 2022-04-29 2022-04-30 Emergency X RIDDLE, [facility] E[facility] [id number] Univers 21:27:00 00:37:00 KYLE it y of [facility] 2022-04-29 2022-04-30 Emergency Leland, [facility] 1.2.136.949 [id number] Univers 21:27:00 00:37:00 Kyle WAYLAND 350.1.13.10 ity [facility] 4.2.7.2.686 [facility] [id number] [address] 2022-04-20 2022-04-20 IHC Follow Philipp Liriano 2.16.840. 2.16.840.1. [id number] [facility] 18:30:00 19:00:00 Up 1.147180. 166344.4.6. CKK Medical 4.6.06176 [id number] 2022-03-17 2022-03-17 IHC Follow Philipp Liriano 2.16.840. 2.16.840.1. [id number] [facility] 18:00:00 18:30:00 Up 1.213063. 410742.4.6. 8CY Medical 4.6.22223 [id number] 2022-02-19 2022-02-19 IHC Follow Philipp Liriano 2.16.840. 2.16.840.1. [id number] [facility] 15:00:00 16:00:00 Up 1.058265. 255585.4.6. ZKH Medical 4.6.81432 [id number] 2022-01-07 2022-01-07 IHC Philipp Liriano 2.16.840. 2.16.840.1. CLA [id number] [facility] 19:00:00 20:00:00 Initial 1.855974. 354660.4.6. 62W Medical 4.6.01324 [id number] 2022-01-02 2022-01-02 Outpatient [email or web address] [facility] [id number] 022 [facility]oted 03:44:00 03:44:00 0715 Medica l Group 2022-01-02 2022-01-02 Outpatient hpham29 [facility] [id number] 023 Devoted 00:00:00 00:00:00 0506 Medica l Group 2021-12-10 2021-12-10 [facility] 022 [facility] 07:06:00 07:06:00 0622 Medica l Group 2021-12-08 2021-12-08 Care Bess 2.16.840. 2.16.840.1. CLAC [id number] [facility] 18:00:00 18:30:00 OnDemand Walt 1.372012. 504701.4.6. [facility] Medical 4.6.82317 [id number] 2021-10-26 2021-10-26 Care Nishea 2.16.840. 2.16.840.1. CLAC [id number] [facility] 17:00:00 17:30:00 OnDemand Euceda 1.445821. 690875.4.6. 2AA Medical 4.6.86220 [id number] 2021-10-25 2021-10-25 Care Tom 2.16.840. 2.16.840.1. [facility] [id number] Devoted 18:30:00 19:00:00 Amor Euceda 1.130030. 261768.4.6. CR2 Medical 4.6.32230 [id number] 2021-10-15 2021-10-15 Emergency X Edd YUEN [facility] ERT [id number] Univers 16:13:00 18:21:00 ity [facility] 2021-10-15 2021-10-15 Emergency Radha [facility] 1.2.840.114 [id number] Univers 16:13:00 18:21:00 Luna NOGUEIRA 350.1.13.10 i ty of [place] 4.2.7.2.686 [facility] [id number] [address] 2021-10-03 2021-10-03 [facility] [id number] Univers 18:45:00 18:45:[address] JUANITA ir[address]heta o f [facility] 2021-08-31 2021-08-31 Care Fatuma 2.16.840. 2.16.840.1. [facility] [id number] Devoted 19:00:00 19:30:00 Amor Jackson 1.822033. 557422.4.6. [facility] Medical 4.6.76203 [id number] 2021-08-30 2021-08-30 [facility] [id number] Univers 09:58:00 11:52:00 NICOLETTE iraheta [facility] 2021-08-30 2021-08-30 Emergency [facility] 1.2.441.884 [id number] Univers 09:58:00 11:52:00 Nicolette NOGUEIRA 350.1.13.10 i ty of [place] 4.2.7.2.686 [facility] [id number] [address] 2021-06-24 2021-06-24 Emergency X , [facility] ERT [id number] Univers 08:18:00 10:03:[address] [facility] 2021-06-24 2021-06-24 Emergency Ross, [facility] 1.2.822.571 [id number] Univers 08:18:00 10:03:00 Jose JERO 350.1.13.10 i ty of [place] 4.2.7.2.686 [facility] [id number] [facility] 084 Branch 2021-06-18 2021-06-18 Outpatient Kautz_S DMG DMG [id number] 021 Devoted 06:07:00 06:07:00 1229 Medica l Group 2021-02-21 2021-02-21 Emergency ER DAIANA AngelesJFred STLS [id number] 09:55:00 09:55:00 [id number] Stanton s [facility] 2021-02-13 2021-02-14 Emergency Bertin Sanchez [facility] 1.2.840 .114 [id number] Univers 19:53:00 00:56:00 Nicolette Campbell 350.1.13.10 ity of [place] 4.2.7.2.[address] [place] [address] [id number] [place] [address] Branch 2021-02-13 2021-02-13 Emergency Jessica [facility] 1.2.092.052 [id number] Univers 00:40:00 07:13:00 Mallory Nogueira 350.1.13.10 ity of [place] 4.2.7.2.6 [facility] [phone] [place] [address] Branch 2021-02-12 2021-02-12 Letter KAROLYN Tyler 1.2.840.114 [id number] Univers 00:00:00 00:00:00 (Out) Janice BOWSER 350.1.13.10 it y of [facility] 4.2.7.2.686 [facility] [phone] [facility] 019 Branch 2021-02-11 2021-02-11 Urgent Julio Cesar [facility] 1.2.840.114 [id number] Univers 09:06:50 09:26:50 Care [facility] 350.1.13.10 it y of [place] 4.2.7.2.686 Braulio as Kyrie?Blea [phone] [place] mel[place] [address] Medical Office [facility] 2021-02-11 2021-02-11 Outpatient R [facility] [id number] Univers 09:00:00 09:00:00 ity [facility] 2021-02-07 2021-02-07 Outpatient R UNKNOWN, [facility] [id number] Univers 14:20:00 14:20:00 ATTENDING ity [facility] 2021-02-03 2021-02-03 Outpatient HEIDI_T [facility] [id number] 021 Devoted 08:30:00 08:30:00 0816 Medica l Group 2021-01-30 2021-01-30 Emergency [facility] 1.2.548.045 [id number] 06:55:00 10:29:00 Vishal Santanaton 350.1.13.10 [place] 4.2.7.2.686 [place] [id number] 08 2021-01-29 2021-01-30 Emergency [facility] 1.2.638.452 [id number] 1421 21:35:00 01:50:00 Liana Nogueira 350.1.13.10 [place] 4.2.7.2.686 [place] [id number] 084 2021-01-03 2021-01-03 Outpatient MERLINE_T [facility] [id number] 021 Devoted 05:35:00 05:35:00 0716 Medica l Group 2020-11-20 2020-11-20 Outpatient [facility] [id number] 021 Devoted 11:00:00 11:00:00 0602 Medica l Group 2020-11-18 2020-11-18 [facility] 1.2.840.114 [id number] 00:00:00 00:00:00 Jerzy Nogueira 350.1.13.10 [place] 4.2.7.2.686 Professio [id number] nal 5 [facility] 2020-11-14 2020-11-14 Refbarbie Sofia PR[facility] 1.2.840.114 [id number] 00:00:00 00:00:00 Ramon Nogueira 350.1.13.10 [place] 4.2.7.2.686 Professio [id number] nal 059 [facility] 2020-10-16 2020-10-16 [facility] 1.2.840.114 [id number] 00:00:00 00:00:00 Jerzy Nogueira 350.1.13.10 [place] 4.2.7.2.686 Professio [phone] nal 085 [facility] 2020-10-01 2020-10-01 Treatment Roy, Cr 1.2.840.1 [id number] Methodi 15:27:18 16:08:34 Beny Richardson 76781.1.[address] 3.430.2.7 Hospit a .3.670436 l .8 2020-10-01 2020-10-01 Travel 1.2.840.1 1.2.184.401 2057 [id number] Methodi 00:00:00 00:00:[address] 3.430.2.7 0.2.7.3.698 Ho spita .3.160088 084.8 l .8 2020-09-19 2020-09-19 Treatment Roy, Cr 1.2.840.1 [id number] Methodi 14:47:22 16:15:02 Beny Richardson 32760.1.[address] 3.430.2.7 Hospit a .3.956589 l .8 2020-09-19 2020-09-19 Travel 1.2.840.1 1.2.912.071 2295 [id number] Methodi 00:00:00 00:00:[address] 3.430.2.7 0.2.7.3.698 Ho spita .3.827441 084.8 l .8 2020-09-17 2020-09-17 Documentat Richardson, 1.2.840.1 [id number] Methodi 00:00:00 00:00:00 ion Beny 24547.1.[address] 3.430.2.7 Hospit a .3.884280 l .8 2020-09-04 2020-09-04 Treatment Roy, Cr 1.2.840.1 [id number] Methodi 15:21:22 16:38:[address] 3.430.2.7 Hospit a .3.756644 l .8 2020-09-04 2020-09-04 Plan of 1.2.840.1 [id number] 3069 Methodi 00:00:00 00:00:[address] Documentat 3.430.2.7 Hos marian ion .3.530955 l .8 2020-09-04 2020-09-04 Travel 1.2.840.1 1.2.962.489 9071 368582 Methodi 00:00:00 00:00:[address] 3.430.2.7 0.2.7.3.698 Ho spita .3.238554 084.8 l .8 2020-08-28 2020-08-28 Treatment Roy, Cr 1.2.840.1 [id number] Methodi 13:52:33 16:45:[address] 3.430.2.7 Hospit a .3.923652 l .8 2020-08-28 2020-08-28 Travel 1.2.840.1 1.2.605.993 0692 402796 Methodi 00:00:00 00:00:[address] 3.430.2.7 0.2.7.3.698 Ho spita .3.139297 084.8 l .8 2020-08-28 2020-08-28 Plan of 1.2.840.1 [id number] 384190 9887 Methodi 00:00:00 00:00:[address] Documentat 3.430.2.7 Hos marian ion .3.549200 l .8 2020-08-20 2020-08-20 Outpatient Harvey SOFIA [facility] [id number] Univers 10:00:00 10:00:00 SENDIL [facility] 2020-08-20 2020-08-20 Travel 1.2.840.1 1.2.409.532 0463 [id number] Methodi 00:00:00 00:00:[address] 3.430.2.7 0.2.7.3.698 Ho spita .3.684395 084.8 l .8 2020-08-19 2020-08-19 Outpatient [facility] [id number] Univers 14:00:00 14:00:00 [facility] 2020-08-13 2020-08-13 Travel 1.2.840.1 1.2.415.495 4249 [id number] Methodi 00:00:00 00:00:[address] 3.430.2.7 0.2.7.3.698 Ho spita .3.074542 084.8 l .8 2020-08-06 2020-08-06 Outpatient [facility] [id number] Univers 11:50:00 11:50:00 [facility] 2020-07-30 2020-07-30 Travel 1.2.840.1 1.2.122.225 1440 [id number] Methodi 00:00:00 00:00:[address] 3.430.2.7 0.2.7.3.698 Ho spita .3.994988 084.8 l .8 2020-07-22 2020-07-22 Transcribe Roy, 1.2.840.1 [id number] 566 [id number] Methodi 00:00:00 00:00:[place] [address] 3.430.2.7 Hospit a .3.440153 l .8 2020-07-16 2020-07-16 Outpatient R JULIO [facility] [id number] Univers 11:00:00 11:00:00 AURELIA [facility] 2020-06-27 2020-06-27 Outpatient R JERZY RANGEL [facility] [id number] Univers 14:20:00 14:20:00 JERZY RANGEL i [facility] 2020-06-17 2020-06-17 Urgent [facility] 1.2.840.114 [id number] 18:48:25 19:08:[address] [facility] 350.1.13.10 [place] 4.2.7.2.686 Professio [phone] [place] [address] Office [facility] One 2020-06-17 2020-06-17 Out[facility] [id number] Univers 19:00:00 19:00:00 [facility] 2020-05-27 2020-05-27 Urgent Nathen [facility] 1.2.840.114 [id number] 16:58:39 17:55:[address] [facility] 350.1.13.10 [place] 4.2.7.2.686 Professio [phone] [place] [address] Office [facility] 2020-05-27 2020-05-27 Outpatient R [facility] [id number] Univers 17:00:00 17:00:00 GARY [facility] 2020-03-04 2020-03-04 Outpatient R SE ANGELINA [facility] [id number] Univers 11:15:00 [facility] 2020-[facility] 2020-02-22 Outpatient R SE ANGELINA [facility] [id number] Univers 14:00[facility]00 [facility]00[facility] 2020-02-21 Outpatient R [facility] [id number] Univers [facility]:00[facility]00 [facility] 2020-02-21 Outpatient R [facility] [id number] Univers 10:00:00 10:00:[address] [facility] 2020-02-16 2020-02-16 Outpatient R ANGELINA SAEZ [facility] [id number] Univers 08:15:00 08:15:[address] [facility] 2020-02-15 2020-02-15 Outpatient R BISMARK [facility] [id number] Univers 09:00:00 09:00:00 SENDIL ity [facility] 2020-02-09 2020-02-09 Outpatient R JERZY RANGEL [facility] [id number] Univers 14:40:00 14:40:00 JERZY RANGEL i ty of [facility] 2020-01-25 2020-01-25 Outpatient R JERZY RANGEL [facility] [id number] Univers 13:00:00 13:00:00 JERZY RANGEL i ty of [facility] 2020-01-05 2020-01-05 Outpatient R JERZY RANGEL [facility] [id number] Univers 11:40:00 11:40:00 JERZY RANGEL i ty of [facility] 2019-11-08 2019-11-08 Outpatient R [facility] [id number] Univers 10:20[facility]00 [facility] 2019-10-05 Outpatient R JERZY RANGEL [facility] [id number] Univers 11:40:00 11:40:00 JERZY RANGEL i ty of [facility] Results Test Description Test Time Test Comments Results Result Comments Source COMP. METABOLIC PANEL (92054) 2023-01-21 22:56:45 Test Item Value Reference Range Interpretation Comme nts NA (test code = 9114785468) 132 mmol/L 135-145 L K (test code = 8255824395) 4.8 mmol/L 3.5-5.0 CL (test code = 0024794286) 99 mmol/L 98-108 CO2 TOTAL (test code = 0062019116) 22 mmol/L 23-31 L AGAP (test code = 5184558289) 11 2-16 BUN (test code = 1530280858) 11 mg/dL 7-23 GLUCOSE (test code = 8360792554) 108 mg/dL 70-110 CREATININE (test code = 1.01 mg/dL 0.50-1.04 4906230005) TOTAL BILI (test code = 0.6 mg/dL 0.1-1.8 9352372866) CALCIUM (test code = 3847865701) 10.3 mg/dL 8.6-10.6 T PROTEIN (test code = 5130688417) 7.7 g/dL 6.3-8.2 ALBUMIN (test code = 2374111270) 4.5 g/dL 3.5-5.0 ALK PHOS (test code = 8407683496) 93 U/L 34-122 ALTv (test code = 1742-6) 25 U/L 5-35 AST(SGOT) (test code = 6247021448) 33 U/L 13-40 eGFR (test code = 2164543688) 54.5 mL/min/1.73m2 AMALIA (test code = AMALIA) Association of Glomerular Filtration Rate (GFR) and Staging of Kidney Disease* + +-------- + ------+| GFR (mL/min/1.73 m2) ?| With Kidney Damage ?| ?Without Kidney Damage+ +-- + +| ?>90 ?| ?Stage one ?| ? Normal ?+ +------- + -------+| ?60-89 ?| ?Stage two ?| ? Decreased GFR ? + +-------- + ------+| ?30-59 ?| ?Stage three ?| ? Stage three ? + +-------- + ------+| ?15-29 ?| ?Stage four ? | ? Stage four ?+ +------- + -------+| ?<15 (or dialysis) ? ?| ?Stage five ? | ? Stage five ?+ +------- + -------+ *Each stage assumes the associated GFR [...] or abnormalities in imaging tests). Lab Interpretation (test code = Abnormal 16055-7) [facility] Test Item Value Reference Range Interpretation Comments LIPASE (test code = 3218956906) 65 U/L 0-220 Lab Interpretation (test code = Normal 99887-8) [facility] [id number] 22:37:02 Test Item Value Reference Range Interpretation Comments WBC (test code = 7.28 See_Comment [Automated 0990-2) message] The sy stem which generated this result transmitted reference range : 4.30 - 11.10 10*3/?L. The reference range was not used to interpret this result as normal/abnormal . RBC (test code = 4.06 See_Comment [Automated 789-8) message] The sy stem which generated this result transmitted reference range : 3.93 - 5.25 10*6/?L. The reference range was not used to interpret this result as normal/abnormal . HGB (test code = 11.8 g/dL 11.6-15.0 718-7) HCT (test code = 34.4 % 35.7-45.2 L 4544-3) MCV (test code = 84.7 fL 80.6-95.5 787-2) MCH (test code = 29.1 pg 25.9-32.8 785-6) MCHC (test code = 34.3 g/dL 31.6-35.1 786-4) RDW-SD (test code = 42.0 fL 39.0-49.9 86632-1) RDW-CV (test code = 13.6 % 12.0-15.5 788-0) PLT (test code = 256 See_Comment [Automated 777-3) message] The sy stem which generated this result transmitted reference range : 166 - 358 10*3/ ?L. The reference r elba was not used to interpret this result as normal/abnormal . MPV (test code = 10.7 fL 9.5-12.9 37042-1) NRBC/100 WBC (test 0.0 See_Comment [Automat ed code = 0665672691) message] The system which generated this result transmitted reference range : 0.0 - 10.0 /100 WBCs. The refer ence range was not u sed to interpret th is result as normal/abnormal . NRBC x10^3 (test code See_Comment [Auto mated = 2415091535) message] The s ystem which generated this result transmitted reference range : 10*3/?L. The reference range was not used to interpret this result as normal/abnormal . GRAN MAT (NEUT) % 80.9 % (test code = 770-8) IMM GRAN % (test code 0.50 % = 4729577455) LYMPH % (test code = 8.4 % 736-9) MONO % (test code = 8.2 % 5905-5) EOS % (test code = 1.5 % 713-8) BASO % (test code = 0.5 % 706-2) GRAN MAT x10^3(ANC) 5.88 10*3/uL 1.88-7.09 (test code = 1000948583) IMM GRAN x10^3 (test 0.04 10*3/uL 0.00-0.06 code = 9221576573) LYMPH x10^3 (test code 0.61 10*3/uL 1.32-3.29 L = 731-0) MONO x10^3 (test code 0.60 10*3/uL 0.33-0.92 = 742-7) EOS x10^3 (test code = 0.11 10*3/uL 0.03-0.39 711-2) BASO x10^3 (test code 0.04 10*3/uL 0.01-0.07 = 704-7) Lab Interpretation Abnormal (test code = 64580-7) [facility] [id number] 07:45:00 Test Item Value Reference Range Interpretation Comments Lactic Acid (test code = LACTIC) 0.7 mmol/L 0.5-2.0 N Lactic Acid Collected YComplete Blood Count Auto [id number] 07:45:00 Test Item Value Reference Range Interpretation Comments White Blood Count (test code = 9.3 x10 3/uL 4.4-10.5 N WBCT) Red Blood Count (test code = 4.83 x10 6/uL 3.75-5.20 N RBC) Hemoglobin (test code = HGBT) 13.4 g/dL 12.2-14.8 N Hematocrit (test code = HCTT) 41.2 % 36.5-44.4 N Mean Corpuscular Volume (test 85.30 fL 80.00-100.00 N code = MCV) Mean Corpuscular Hemoglobin 27.7 pg 27.0-32.5 N (test code = MCH) Mean Corpuscular HGB Conc (test 32.50 g/dL 32.00-37.50 N code = MCHC) RDW Coefficient of Variation 14.2 % 11.5-14.5 N (test code = RDWCV) Platelet Count (test code = 324 x10 3/uL 140.0-440.0 N PLTT) Mean Platelet Volume (test code 10.4 fL = MPV) Immature Granulocytes % (Auto) 0.4 % 0.0-5.0 N (test code = IMMGRAN%) Neutrophils % (Auto) (test code 53.9 % 36.0-70.0 N = NE%) Lymphocytes % (Auto) (test code 33.4 % 12.0-44.0 N = LY%) Monocytes % (Auto) (test code = 11.2 % 0.0-11.0 H MO%) Eosinophils % (Auto) (test code 0.6 % 0.0-7.0 N = EO%) Basophils % (Auto) (test code = 0.5 % 0.0-2.0 N BA%) Immature Granulocytes # (Auto) 0.04 x10 3/uL (test code = IMMGRAN#) Neutrophils # (Auto) (test code 5.0 x10 3/uL 1.6-7.4 N = NE#) Lymphocytes # (Auto) (test code 3.10 x10 3/uL 0.50-4.60 N = LY#) Monocytes # (Auto) (test code = 1.04 x10 3/uL 0.00-1.20 N MO#) Eosinophils # (Auto) (test code 0.06 x10 3/uL 0.00-0.74 N = EO#) Basophils # (Auto) (test code = 0.05 x10 3/uL 0.00-0.21 N BA#) nRBC Abs (test code = NRBCA) 0 nRBC Pct (test code = NRBCP) 0 % Jluheqrmehb2057-76-09 07:45:00 Test Item Value Reference Range Interpretation Comments Phosphorous (test code = PHOS) 2.8 mg/dL 2.4-5.9 N Nqcahlsfx5455-10-21 07:45:00 Test Item Value Reference Range Interpretation Comments Magnesium (test code = MG) 2.3 mg/dL 1.6-2.6 N Comprehensive Metabolic [id number] 07:45:00 Test Item Value Reference Range Interpretation Comments SODIUM (test code = NA) 136.0 mmol/L 136.0-145.0 N Potassium,K (test code = 4.1 mmol/L 3.0-5.1 N K) Chloride (test code = 98 mmol/L 98-107 N CL) Carbon Dioxide (test 27 mmol/L 20-31 N code = CO2) Anion Gap (test code = 11 mmol/L 5-15 N GAP) Blood Urea Nitrogen 18 mg/dL 9-23 N (test code = BUN) Creatinine (test code = 1.05 mg/dL 0.55-1.02 H CREATT) Creatinine Clr Calc 61.80 mL/min Pharmacy (test code = CRCLPHA) Estimated Glomerular 58 See_Comment L Reporte d eGFR is Filt Rate (test code = based on the EGFR.XX) CKD-EPI 202 equation thatdo es not use a race coefficient. Additional information can be found at:[phone]_p cb_ egfr_summary_fl jayda 5.pdf (kidney.o rg) [Automated message] The system which generated this result transmit [place] reference range : >=90 ml/min/1.73m2. The reference range was not used to interpret this result as normal/abnormal . BUN/Creatinine Ratio 17 ratio 10-20 N (test code = BCRATIO) Glucose (test code = 75 mg/dL 74-106 N GLU) Osmolality,Calculated 282.4 (test code = OSMOC) Calcium (test code = CA) 9.9 mg/dL 8.3-10.6 N Bilirubin,Total (test 0.4 mg/dL 0.2-1.1 N code = BILIT) Aspartate Amino 33 U/L 0-34 N Transferase (test code = AST) Alanine Aminotransferase 30 U/L 10-49 N (test code = ALT) Total Protein (test code 6.4 g/dL 5.7-8.2 N = TP) Albumin Level (test code 4.7 g/dL 3.2-4.8 N = ALB) Globulin (test code = 1.7 mg/dL 2.3-3.5 L GLOB) Albumin/Globulin Ratio 2.8 ratio 0.8-2.0 H (test code = AGRATIO) Alkaline Phosphatase 90 U/L 46-116 N (test code = ALP) [id number] 07:45:00 Test Item Value Reference Range Interpretation Comments Lipase (test code = LIP) 32 U/L 12-53 N UA, Urinalysis Rflx Cult/[id number] 15:00:00 Test Item Value Reference Range Interpretation Comments Color,Urine (test code = UCOL) Yellow Yellow Clarity,Urine (test code = Clear Clear UCLAR) Ph, Urine (test code = UPH) 5.5 5.0-9.0 N Specific [place],Urine (test 1.010 1.005-1.030 N code = USG) Blood,Urine (test code = UBLD) Negative mg/dL Negative Protein,Urine (test code = Negative mg/dL Negative UPRO) Glucose,Urine (UA) (test code Negative mg/dL Negative = UGLU) Ketones,Urine (test code = Negative mg/dL Negative UKET) Nitrate,Urine (test code = Negative Negative UNIT) Bilirubin,Urine (test code = Negative mg/dL Negative UBIL) Urobilinogen,Urine (test code 0.2 E.U./dL Normal = UURO) Leukocyte Esterase,Urine (test Small mg/dL Negative A code = ULEU) UF REFLEXUF REFLEXUrine [id number] 15:00:00 Test Item Value Reference Range Interpretation Comments RBC,Urine (test code = URBCUF) None Seen /HPF 0-2 WBC,Urine (test code = UWBCUF) 0-5 /HPF 0-5 Epithelial Cell,Urine (test 0-5 /HPF 0-5 code = UECUF) Casts,Urine (test code = None Seen /LPF None Seen UCASTUF) Bacteria,Urine (test code = None Seen /hpf None Seen UBACTUF) UF REFLEXUF REFLEXDrug Screen,[id number] 15:00:00 Test Item Value Reference Range Interpretation Comments PCP Phencyclidine Screen,Urine (test Negative Negative code = PCPU) Amphetamine Screen,Urine (test code Negative Negative = AMPU) Methadone Screen,Urine (test code = Negative Negative METHU) Opiate Screen,Urine (test code = Positive Negative A UOPIS) Barbituates Screen,Urine (test code Positive Negative A = BARBU) Benzodiazepines Screen,Urine (test Negative Negative code = UBENZS) Cocaine Screen,Urine (test code = Negative Negative UCOCS) Cannabinoid Screen,Urine (test code Negative Negative = UTHCS) Propoxyphene Screen, Urine (test Negative Negative code = UPROP) Complete Blood Count Auto [id number] 15:00:00 Test Item Value Reference Range Interpretation Comments White Blood Count (test code = 6.5 x10 3/uL 4.4-10.5 N WBCT) Red Blood Count (test code = 3.85 x10 6/uL 3.75-5.20 N RBC) Hemoglobin (test code = HGBT) 11.2 g/dL 12.2-14.8 L Hematocrit (test code = HCTT) 33.9 % 36.5-44.4 L Mean Corpuscular Volume (test 88.10 fL 80.00-100.00 N code = MCV) Mean Corpuscular Hemoglobin 29.1 pg 27.0-32.5 N (test code = MCH) Mean Corpuscular HGB Conc (test 33.00 g/dL 32.00-37.50 N code = MCHC) RDW Coefficient of Variation 14.6 % 11.5-14.5 H (test code = RDWCV) Platelet Count (test code = 254 x10 3/uL 140.0-440.0 N PLTT) Mean Platelet Volume (test code 10.2 fL = MPV) Immature Granulocytes % (Auto) 0.6 % 0.0-5.0 N (test code = IMMGRAN%) Neutrophils % (Auto) (test code 52.2 % 36.0-70.0 N = NE%) Lymphocytes % (Auto) (test code 32.5 % 12.0-44.0 N = LY%) Monocytes % (Auto) (test code = 9.0 % 0.0-11.0 N MO%) Eosinophils % (Auto) (test code 4.9 % 0.0-7.0 N = EO%) Basophils % (Auto) (test code = 0.8 % 0.0-2.0 N BA%) Immature Granulocytes # (Auto) 0.04 x10 3/uL (test code = IMMGRAN#) Neutrophils # (Auto) (test code 3.4 x10 3/uL 1.6-7.4 N = NE#) Lymphocytes # (Auto) (test code 2.12 x10 3/uL 0.50-4.60 N = LY#) Monocytes # (Auto) (test code = 0.59 x10 3/uL 0.00-1.20 N MO#) Eosinophils # (Auto) (test code 0.32 x10 3/uL 0.00-0.74 N = EO#) Basophils # (Auto) (test code = 0.05 x10 3/uL 0.00-0.21 N BA#) nRBC Abs (test code = NRBCA) 0 nRBC Pct (test code = NRBCP) 0 % Comprehensive Metabolic [id number] 15:00:00 Test Item Value Reference Range Interpretation Comments SODIUM (test code = NA) 137.0 mmol/L 136.0-145.0 N Potassium,K (test code = 3.9 mmol/L 3.0-5.1 N K) Chloride (test code = 106 mmol/L 98-107 N CL) Carbon Dioxide (test 25 mmol/L 20-31 N code = CO2) Anion Gap (test code = 6 mmol/L 5-15 N GAP) Blood Urea Nitrogen 14 mg/dL 9-23 N (test code = BUN) Creatinine (test code = 1.14 mg/dL 0.55-1.02 H CREATT) Creatinine Clr Calc 58.35 mL/min Pharmacy (test code = CRCLPHA) Estimated Glomerular 52 See_Comment L Reporte d eGFR is Filt Rate (test code = based on the EGFR.XX) CKD-EPI 202 equation thatdo es not use a race coefficient. Additional information can be found at:[phone]_j cb_ egfr_summary_fl jayda 5.pdf (kidney.o rg) [Automated message] The system which generated this result transmit [place] reference range : >=90 ml/min/1.73m2. The reference range was not used to interpret this result as normal/abnormal . BUN/Creatinine Ratio 12 ratio 10-20 N (test code = BCRATIO) Glucose (test code = 105 mg/dL 74-106 N GLU) Osmolality,Calculated 284.0 (test code = OSMOC) Calcium (test code = CA) 9.5 mg/dL 8.3-10.6 N Bilirubin,Total (test 0.3 mg/dL 0.2-1.1 N code = BILIT) Aspartate Amino 23 U/L 0-34 N Transferase (test code = AST) Alanine Aminotransferase 24 U/L 10-49 N (test code = ALT) Total Protein (test code 6.7 g/dL 5.7-8.2 N = TP) Albumin Level (test code 4.3 g/dL 3.2-4.8 N = ALB) Globulin (test code = 2.4 mg/dL 2.3-3.5 N GLOB) Albumin/Globulin Ratio 1.8 ratio 0.8-2.0 N (test code = AGRATIO) Alkaline Phosphatase 89 U/L 46-116 N (test code = ALP) Ethanol [id number] 15:00:00 Test Item Value Reference Range Interpretation Comments Ethanol (test code < 3 mg/dL The pharm acological = ETOH) response to blo od alcohol levels mayvary from individual to i ndividual. The fatal jairo ntrationhas been reported t o be >400mg/dL. [id number] 23:51:21 Test Item Value Reference Interpretation Comments Range D-DIMER (test code = 1.08 See_Comment H [Autom ated 8465905826) message] The system which generated this result transmitted reference range : <0.50 ?g/mL (FEU). The reference range was not used to interpret this result as normal/abnormal . AMALIA (test code = This test may be AMALIA) used in conjunction with a clinical pretest probability (PTP) assessment model to exclude venous thromboembolism (VTE) in patients suspected of deep venous thrombosis (DVT) and pulmonary embolism (PE) A D-Dimer value less than 0.50 ?g/ml (FEU) has a negative predicative value of 96 to 100% (95% CI)and 97 to 100% (95% CI) as an aid in the diagnosis of deep vein thrombosis (DVT) and pulmonary embolism when there is low or moderate pretest probability of PE or DVT. D-Dimer values are expressed in initial fibrinogen equivalent units (FEU)" The assay results should be used with other information, including the clinical context, in forming a diagnosis. Lab Interpretation Abnormal (test code = 70753-0) [facility] [id number] 06:24:06 Test Item Value Reference Interpretation Comments Range TROPONIN I (test 0.002 ng/mL See_Comment [Automated code = 7568928156) message] The system which generated this result [...] biotin. Lab Interpretation Normal (test code = 65672-8) [facility] [id number] 04:32:17 Test Item Value Reference Interpretation Comments Range TROPONIN I (test 0.002 ng/mL See_Comment [Automated code = 5697958227) message] The system which generated this result [...] biotin. Lab Interpretation Normal (test code = 19564-6) [id number]-[id number] 04:29:16 Test Item Value Reference Range Interpretation Comments NT-proBNP (test code 74 pg/mL See_Comment [Autom ated = 8832047685) message] The system which generated this result transmitted reference range : <=125. The reference range was not used to interpret this result as normal/abnormal . AMALIA (test code = AMALIA) Biotin has been reported to cause a negative bias, interpret results relative to patient's use of biotin. Lab Interpretation Normal (test code = 84965-4) [facility] (50594)2022-04-30 04:20:56 Test Item Value Reference Range Interpretation Comments NA (test code = 139 mmol/L 135-145 4618524340) K (test code = 4.2 mmol/L 3.5-5.0 8422903500) CL (test code = 105 mmol/L 98-108 4663356405) CO2 TOTAL (test code = 26 mmol/L 23-31 1225057131) AGAP (test code = 2-16 3988342487) BUN (test code = 17 mg/dL 7-23 9738532997) GLUCOSE (test code = 111 mg/dL 70-110 H 9828669095) CREATININE (test code = 0.99 mg/dL 0.50-1.04 2596356372) TOTAL BILI (test code = 0.3 mg/dL 0.1-1.9 0863221889) CALCIUM (test code = 10.1 mg/dL 8.6-10.6 8465160848) T PROTEIN (test code = 6.8 g/dL 6.3-8.2 2206274895) ALBUMIN (test code = 4.4 g/dL 3.5-5.0 2763097157) ALK PHOS (test code = 72 U/L 34-122 7015779365) ALTv (test code = 17 U/L 5-35 1742-6) AST(SGOT) (test code = 20 U/L 13-40 4410723633) eGFR (test code = mL/min/1.73m2 3708329787) AMALIA (test code = AMALIA) Association of [...] tests). Lab Interpretation Abnormal (test code = 80468-6) [facility] / [id number] 04:16:14 Test Item Value Reference Range Interpretation Comments PROTIME PATIENT (test See_Comment [Auto mated message] code = 5964-2) The system [employer] generated this result transmitted ref erence range: 12.0 - 1 4.7 Seconds. The re ference range was not u sed to interpret this result as normal/abnor mal. INR (test code = 6301-6) Nor mal INR <1.1; Warfarin Therap eutic range 2.0 to 3. 0 or 2.5 to 3.5, dep ending upon the indica tions. Lab Interpretation (test Normal code = 98494-7) [facility] WITH [id number] 04:15:13 Test Item Value Reference Range Interpretation [...] RDW-SD (test code = 41.3 fL 39.0-49.9 42525-8) RDW-CV (test code = 13.1 % 12.0-15.5 788-0) PLT (test code = See_Comment [Automated 777-3) message] The sy stem which generated this result transmitted reference range : 166 - 358 10*3/ ?L. The reference r elba was not used to interpret this result as normal/abnormal . MPV (test code = 10.9 fL 9.5-12.9 46747-3) NRBC/100 WBC (test See_Comment [Automat ed code = 7806881357) message] The system which generated this result transmitted reference range : 0.0 - 10.0 /100 WBCs. The refer ence range was not u sed to interpret th is result as normal/abnormal . NRBC x10^3 (test code See_Comment [Auto mated = 2551560646) message] The s ystem which generated this result transmitted reference range : 10*3/?L. The reference range was not used to interpret this result as normal/abnormal . GRAN MAT (NEUT) % 57.0 % (test code = 770-8) IMM GRAN % (test code 0.40 % = 2663820585) LYMPH % (test code = 30.2 % 736-9) MONO % (test code = 9.5 % 5905-5) EOS % (test code = 2.3 % 713-8) BASO % (test code = 0.6 % 706-2) GRAN MAT x10^3(ANC) 4.79 10*3/uL 1.88-7.09 (test code = 5464049819) IMM GRAN x10^3 (test 0.03 10*3/uL 0.00-0.06 code = 2542013080) LYMPH x10^3 (test code 2.54 10*3/uL 1.32-3.29 = 731-0) MONO x10^3 (test code 0.80 10*3/uL 0.33-0.92 = 742-7) EOS x10^3 (test code = 0.19 10*3/uL 0.03-0.39 711-2) BASO x10^3 (test code 0.05 10*3/uL 0.01-0.07 = 704-7) Lab Interpretation Abnormal (test code = 07327-7) [facility] 16:46:40 Test Item Value Reference Range Interpretation Comments MAGNESIUM (test code = 6559112390) 1.9 mg/dL 1.7-2.4 Lab Interpretation (test code = Normal 15007-5) [facility] (11917)2021-08-30 16:46:20 Test Item Value Reference Range Interpretation Comments NA (test code = 141 mmol/L 135-145 0312194811) K (test code = 4.4 mmol/L 3.5-5.0 3053831774) CL (test code = 107 mmol/L 98-108 9126802454) CO2 TOTAL (test code = 23 mmol/L 23-31 2643292252) AGAP (test code = 2-16 6619176678) BUN (test code = 17 mg/dL 7-23 9387399980) GLUCOSE (test code = 114 mg/dL 70-110 H 8716561444) CREATININE (test code = 1.06 mg/dL 0.50-1.04 H 3252429835) TOTAL BILI (test code = 0.6 mg/dL 0.1-1.1 3025571816) CALCIUM (test code = 9.9 mg/dL 8.6-10.6 9337150142) T PROTEIN (test code = 6.7 g/dL 6.3-8.2 3306302179) ALBUMIN (test code = 4.3 g/dL 3.5-5.0 4872795222) ALK PHOS (test code = 81 U/L 34-122 3825928560) ALTv (test code = 21 U/L 5-35 2-6) AST(SGOT) (test code = 26 U/L 13-40 6045540317) eGFR (test code = mL/min/1.73m2 2707441652) AMALIA (test code = AMALIA) Association of [...] tests). Lab Interpretation Abnormal (test code = 52102-2[facility] WITH [id number] 16:45:39 Test Item Value Reference Range Interpretation [...] RDW-SD (test code = 44.4 fL 39.0-49.9 31654-6) RDW-CV (test code = 14.0 % 12.0-15.5 788-0) PLT (test code = See_Comment [Automated 777-3) message] The sy stem which generated this result transmitted reference range : 166 - 358 10*3/ ?L. The reference r elba was not used to interpret this result as normal/abnormal . MPV (test code = 10.7 fL 9.5-12.9 61694-8) NRBC/100 WBC (test See_Comment [Automat ed code = 0043792592) message] The system which generated this result transmitted reference range : 0.0 - 10.0 /100 WBCs. The refer ence range was not u sed to interpret th is result as normal/abnormal . NRBC x10^3 (test code <0.01 See_Comment [Auto mated = 9837741755) message] The s ystem which generated this result transmitted reference range : 10*3/?L. The reference range was not used to interpret this result as normal/abnormal . GRAN MAT (NEUT) % 54.5 % (test code = 770-8) IMM GRAN % (test code 0.50 % = 7948986105) LYMPH % (test code = 28.7 % 736-9) MONO % (test code = 11.3 % 5905-5) EOS % (test code = 4.1 % 713-8) BASO % (test code = 0.9 % 706-2) GRAN MAT x10^3(ANC) 2.41 10*3/uL 1.88-7.09 (test code = 4990889252) IMM GRAN x10^3 (test <0.03 0.00-0.06 code = 7082520537) LYMPH x10^3 (test code 1.27 10*3/uL 1.32-3.29 L = 731-0) MONO x10^3 (test code 0.50 10*3/uL 0.33-0.92 = 742-7) EOS x10^3 (test code = 0.18 10*3/uL 0.03-0.39 711-2) BASO x10^3 (test code 0.04 10*3/uL 0.01-0.07 = 704-7) Lab Interpretation Abnormal (test code = 72371-1) [facility] 11:14:00 Test Item Value Reference Range Interpretation Comments Chemistry (test 0.013 ng/mL < 0.028 code = TROPI-R) Reference Ra nge 0.00 - 0.028 ng /mL Negative 0.029 - 0.29 ng/mL Indetermi sabino Greater or Equa l to 0.3 ng/mL Strongly suggests MO Chemistry - BNP, HgbA1c, [id number] 11:14:00 Test Item Value Reference Range Interpretation Comments Chemistry - BNP, HgbA1c, PTHi 14.3 pg/mL 0-100 N (test code = BNP) Rnxzxtyzq5437-56-71 11:12:00 Test Item Value Reference Range Interpretation [...] code 21 U/L 8-55 N = ALT) Jxdfkdecmt1621-26-99 10:55:00 Test Item Value Reference Range Interpretation [...] DRUG (IMMUNOASSAY) - COMPREHENSIVE DRUG SCREEN W/O [id number] 03:45:17 Test Item Value Reference Range Interpretation Comments AMPHET (test code = 2009571179) Negative Negative SALOMÓN U (test code = 8868918821) Negative Negative BENZO U (test code = 8941987719) Negative Negative Cocaine Metabolite (test code = Negative Negative 2171678125) METHADONE (test code = 5026244290) Negative Negative OPIATES (test code = 5953840098) Negative Negative PCP (test code = 5219121431) Negative Negative THC (test code = 0085262636) Negative Negative AMALIA (test code = AMALIA) Lab Interpretation (test code = Normal 62636-9) [facility] 03:28:39 Test Item Value Reference Range Interpretation Comments APPEARANCE (test code = Clear Clear 6484442417) COLOR (test code = Yellow Yellow 7682503178) PH (test code = 4.8-8.0 2644060401) SP GRAVITY (test code = 1.003-1.030 4452255777) GLU U QUAL (test code = Normal Normal 0403013806) BLOOD (test code = Negative Negative 9708817792) KETONES (test code = Negative Negative 6451979749) PROTEIN (test code = Negative Negative 2887-8) UROBILIN (test code = Normal Normal 8738122584) BILIRUBIN (test code = Negative Negative 1267045406) NITRITE (test code = Negative Negative 8325545714) LEUK GLENNA (test code = 75/uL Negative A 8414044215) RBC/HPF (test code = See_Comment H [Autom ated message] [id number]) The system [employer] generated this result transmitted ref erence range: 0 - 3 HP F. The reference range was not used to int erpret this result as normal/abnormal . WBC/HPF (test code = See_Comment H [Autom ated message] [id number]) The system [employer] generated this result transmitted ref erence range: 0 - 5 HP F. The reference range was not used to int erpret this result as normal/abnormal . BACTERIA (test code = Negative Negative [id number]) SQ EPITH (test code = <1 HPF [id number]) Lab Interpretation (test Abnormal code = 11027-2) [facility] WITH [id number] 02:33:37 Test Item Value Reference Range Interpretation Comments WBC (test code = See_Comment H [Automated 7290-2) message] The system which generated this result transmit [place] reference range : 4.30 - 11.10 10*3/?L. The reference range was not used to interpret this result as normal/abnormal . RBC (test code = See_Comment [Automated 759-8) message] The system which generated this result [...] RDW-SD (test code = 46.1 fL 39.0-49.9 66223-0) RDW-CV (test code = 15.0 % 12.0-15.5 788-0) PLT (test code = See_Comment [Automated 777-3) message] The system which generated this result transmit [place] reference range : 166 - 358 10*3/ ?L. The reference range was not u sed to interpret th is result as normal/abnormal . MPV (test code = 10.4 fL 9.5-12.9 66741-7) NRBC/100 WBC (test See_Comment [Automat ed code = 2746947290) message] The system which generated this result transmit [place] reference range : 0.0 - 10.0 /100 WBCs. The reference range was not used to interpret this result as normal/abnormal . NRBC x10^3 (test code <0.01 See_Comment [Auto mated = 8442637053) message] The system which generated this result transmit [place] reference range : 10*3/?L. The reference range was not used to interpret this result as normal/abnormal . GRAN MAT (NEUT) % 89.8 % (test code = 770-8) IMM GRAN % (test code 2.30 % = 1474912059) LYMPH % (test code = 3.5 % 736-9) MONO % (test code = 4.2 % 5905-5) EOS % (test code = 0.0 % 713-8) BASO % (test code = 0.2 % 706-2) GRAN MAT x10^3(ANC) 16.54 10*3/uL 1.88-7.09 H (test code = 1178080962) IMM GRAN x10^3 (test 0.42 10*3/uL 0.00-0.06 H code = 9510742739) LYMPH x10^3 (test code 0.64 10*3/uL 1.32-3.29 L = 731-0) MONO x10^3 (test code 0.77 10*3/uL 0.33-0.92 = 742-7) EOS x10^3 (test code = <0.03 0.03-0.39 L 711-2) BASO x10^3 (test code 0.04 10*3/uL 0.01-0.07 = 704-7) Lab Interpretation Abnormal (test code = 69655-2) [id number]14 Test Item Value Reference Range Interpretation Comments TROPONIN I (test code = 0.020 ng/mL See_Comment [Au tomated 9133363895) message] The sy stem which generated this result transmitted reference range : <=0.034. The reference range was not used to interpret this result as normal/abnormal . AMALIA (test code = AMALIA) Lab Interpretation Normal (test code = 16759-1) [facility]. METABOLIC PANEL (99807)2021-02-14 01:58:53 Test Item Value Reference Range Interpretation Comments NA (test code = 3414939556) 137 mmol/L 135-145 K (test code = 3417229182) 4.4 mmol/L 3.5-5.0 CL (test code = 6606158241) 102 mmol/L 98-108 CO2 TOTAL (test code = 6883767245) 25 mmol/L 23-31 AGAP (test code = 1078360436) 2-16 BUN (test code = 5480286523) 22 mg/dL 7-23 GLUCOSE (test code = 6127150657) 149 mg/dL 70-110 H CREATININE (test code = 0.89 mg/dL 0.50-1.04 7495897289) TOTAL BILI (test code = 0.5 mg/dL 0.1-1.4 9863129615) CALCIUM (test code = 4759967057) 10.6 mg/dL 8.6-10.6 T PROTEIN (test code = 7156367305) 7.6 g/dL 6.3-8.2 ALBUMIN (test code = 2911410861) 4.5 g/dL 3.5-5.0 ALK PHOS (test code = 6868978170) 101 U/L 34-122 ALTv (test code = 1742-6) 25 U/L 5-35 AST(SGOT) (test code = 1065513726) 29 U/L 13-40 eGFR (test code = 9871991585) mL/min/1.73m2 AMALIA (test code = AMALIA) Lab Interpretation (test code = Abnormal 85123-2) [facility]2021-02-14 01:57:53 Test Item Value Reference Range Interpretation Comments SARS-CoV-2 Rapid ID NOW (test Not Detected Not Detected code = 99244-5) AMALIA (test code = AMALIA) Lab Interpretation (test code = Normal 06687-6) [facility] [id number] 11:27:57 Test Item Value Reference Range Interpretation Comments TROPONIN I (test code = <0.012 See_Comment [Au tomated message] 1333893314) The system [employer] generated this result transmitted ref erence range: <=0.034 ng/mL. The reference r elba was not used to interpret this result as normal/abnor mal. AMALIA (test code = AMALIA) Lab Interpretation (test Normal code = 65891-8) [facility] WITH [id number] 07:32:39 Test Item Value Reference Range Interpretation Comments WBC (test code = See_Comment [Automated 3690-2) message] The sy stem which generated this result transmitted reference range : 4.30 - 11.10 10*3/?L. The reference range was not used to interpret this result as normal/abnormal . RBC (test code = See_Comment [Automated 945-8) message] The sy stem which generated this [...] RDW-SD (test code = 47.0 fL 39.0-49.9 50518-9) RDW-CV (test code = 14.9 % 12.0-15.5 788-0) PLT (test code = See_Comment [Automated 777-3) message] The sy stem which generated this result transmitted reference range : 166 - 358 10*3/ ?L. The reference r elba was not used to interpret this result as normal/abnormal . MPV (test code = 10.4 fL 9.5-12.9 08089-4) NRBC/100 WBC (test See_Comment [Automat ed code = 0441963510) message] The system which generated this result transmitted reference range : 0.0 - 10.0 /100 WBCs. The refer ence range was not u sed to interpret th is result as normal/abnormal . NRBC x10^3 (test code <0.01 See_Comment [Auto mated = 0175709364) message] The s ystem which generated this result transmitted reference range : 10*3/?L. The reference range was not used to interpret this result as normal/abnormal . GRAN MAT (NEUT) % 72.7 % (test code = 770-8) IMM GRAN % (test code 4.50 % = 2038474520) LYMPH % (test code = 13.6 % 736-9) MONO % (test code = 7.0 % 5905-5) EOS % (test code = 1.8 % 713-8) BASO % (test code = 0.4 % 706-2) GRAN MAT x10^3(ANC) 7.99 10*3/uL 1.88-7.09 H (test code = 6344448128) IMM GRAN x10^3 (test 0.50 10*3/uL 0.00-0.06 H code = 6003159052) LYMPH x10^3 (test code 1.50 10*3/uL 1.32-3.29 = 731-0) MONO x10^3 (test code 0.77 10*3/uL 0.33-0.92 = 742-7) EOS x10^3 (test code = 0.20 10*3/uL 0.03-0.39 711-2) BASO x10^3 (test code 0.04 10*3/uL 0.01-0.07 = 704-7) Lab Interpretation Abnormal (test code = 09472-7) [facility] [id number] 07:10:47 Test Item Value Reference Range Interpretation Comments TROPONIN I (test code = <0.012 See_Comment [Au tomated message] 8706980039) The system [employer] generated this result transmitted ref erence range: <=0.034 ng/mL. The reference r elba was not used to interpret this result as normal/abnor mal. AMALIA (test code = AMALIA) Lab Interpretation (test Normal code = 98354-9) [id number] 07:07:26 Test Item Value Reference Range Interpretation Comments NT-proBNP (test code = 87 pg/mL See_Comment [Aut omated message] 1842517323) The system [employer] generated this result transmitted ref erence range: <=125. T he reference range was not used to int erpret this result as normal/abnormal . AMALIA (test code = AMALIA) Lab Interpretation (test Normal code = 18257-6) [id number] 06:59:27 Test Item Value Reference Range Interpretation Comments D-DIMER (test code = See_Comment H [Autom ated message] 9242539657) The system [employer] generated this result transmitted ref erence range: <0.41 ?g /mL (FEU). The refe rence range was not u sed to interpret this result as normal/abnor mal. AMALIA (test code = AMALIA) Lab Interpretation (test Abnormal code = 95175-4) [facility] (NA, K, CL, CO2, GLUCOSE, BUN, CREATININE, CA)2021-02-13 06:58:46 Test Item Value Reference Range Interpretation Comments NA (test code = 5961999079) 139 mmol/L 135-145 K (test code = 7768439109) 4.7 mmol/L 3.5-5.0 CL (test code = 1877377697) 108 mmol/L 98-108 CO2 TOTAL (test code = 8330554257) 27 mmol/L 23-31 AGAP (test code = 8957954533) 2-16 BUN (test code = 0766943975) 22 mg/dL 7-23 GLUCOSE (test code = 2850255250) 106 mg/dL 70-110 CREATININE (test code = 1.10 mg/dL 0.50-1.04 H 9711451196) CALCIUM (test code = 8362721879) 10.1 mg/dL 8.6-10.6 eGFR (test code = 1348082606) mL/min/1.73m2 AMALIA (test code = AMALIA) Lab Interpretation (test code = Abnormal 64408-7) [facility] [address] [place] [address] Patient Name: Janice Dela Cruz Medical Record#: [id number] Address: [address] [place] [address] City/State/Zip: [place] [address]: Sonya German MD Insurance: [employer] /Age/Sex: 1955/67/F Self Pay Admit/Reg Date: 12/29/[address]: Sonya German MD [id number] PCP: Aiden Linn Date of Service: 12/29/22 Order (s): CT abdomen pelvis wo contrast CPT Code: 91194 Report Number: [id number] Reason for Exam: abdominal pain nausea vomiting Location: H3 CT of the abdomen and CT of the pelvis , 12/29/2022 CLINICAL HISTORY: Abdominal pain, nausea and vomiting COMPARISON EXAM : None relevant to the study TECHNIQUE: A CT scan of the abdomen and pelvis conducted in the axial plane scanning utilizing acquisition of axial slice thickness from the lower lungs through the pubic symphysis without IV or enteric contrast. There is acquisition of 2D coronal and sagittal reformatted images acquired. Thiswas acquired using MPR software on the CT workstation. The examination was performed on an updated helical CT scan using utilizing low-dose radiation technique. Automatic exposure technique was utilized to reduce radiation dose. Unless otherwise specified , incidental findings do not require dedicated imaging follow up . The total DLP is 603.4 mGy-cm FINDINGS: No obstructive nephropathy or radio-opaque calculi seen. There is an approximately 1 cm hypodensity measuring low-attenuation Doyle indicates a benign cyst arising ventrally from the left kidney. Additional hypodense lesion possibly representing a hyperdense cyst is seenarising from the upper pole laterally of the left kidney measuring 1.5 cm. Correlation with sonography on a nonemergent basis may be helpful for confirmation versus consideration of cross-sectional imaging with and without contrast for further assessment. No right renal mass. The liver demonstrates normal size, attenuation and contour without abnormality on this non contrast exam. Cholecystectomy changes are noted in this patient. E. No biliary distention is seen. The spleen is normal in size without focal defects. The adrenal glands are unremarkable without masses. The pancreas demonstrates no abnormality on this non contrast exam. There are no peripancreatic fluid collections. Bowel gas pattern is nonobstructed and nonspecific without pneumoperitoneum or pneumatosis. Assessment of bowel pathology is limited given lack of IV and enteric contrast w/o abscess or definite abnormality identified. The appendix is not definitively identified but do not see any ancillary findings for appendicitis or definite acute bowel pathology. There is presence of diverticulosis along the sigmoid colon without definite CT findings of acute diverticulitis There is no aneurysmal dilatation of the abdominal aorta and IVC are unremarkable. There is no significant adenopathy within the abdomen. No acute osseous finding is seen . The bases of the lungs are clear. The pelvic contents are unremarkable without mass. No focal fluid collections or adenopathy. Nonvisualization of the uterus consistent with hysterectomy.There is no acute osseous finding. Degenerative disc changes at L5- S1. IMPRESSION: No definite acutebowel pathology. The appendix is not definitively identified but no ancillary findings for appendicitis There is presence of sigmoid diverticulosis without acute diverticulitis Indeterminate hyperdenselesion measuring higher attenuation than simple fluid arising from the upper pole laterally of the left kidney measuring 1.5 cm in size. It is possibly reflective of a benign hyperdense cyst but cannotexcluded entirely exclude entities. Correlation with nonemergent sonography versus repeat cross-sectional imaging with and without contrast may be helpful for assessment. Additional probable benign cyst is measuring a centimeter in size is seen adjacent to this finding. Electronically signed by: Reta He MD 12/29/2022 11:49 PM CDT Dictated By: Reta He MD 12/29/222316 Signed By: Reta He MD 12/29/222350 TD/TT: 12/29/222316 Tech: OMO01 cc: AGLFA; DOUEL02* Sonya German MD; Aiden Linn,XR Chest 1 View PortableCHI [facility] : 1955 [facility] Pt Name: JANICE DELA CRUZ [address] Phys: [place] [address] : 1955 Age: 65 SEX:F [phone] Exam Date: 02/21/21 Status: REG ER Acct: [id number] Loc: [facility] Pt Unit #: [id number] Report #: [id number] CC: JESSE ANGELES MD IMAGING SERVICES REPORT Order # Category/Exam [id number] RAD/XR Chest 1 View Portable ([id number]):. Results Exam: Chest one view HISTORY:Dyspnea COMPARISON: None FINDINGS: Cardiac silhouette: NormalAorta: Unremarkable Pulmonary vessels: Normal Costophrenic angles: Clear Lungs: Hyperinflation with chronic changes. Pneumothorax: None Osseous abnormalities: None IMPRESSION: No acute cardiopulmonary process. COMMUNICATION: Reported By: Antonio Vaca MD Electronically Signed Date/Time: 02/21/21 1037 Technologist: ALFONZO Dictated Date/Time: 02/21/21 1036 Transcribed Date/Time:
[2023-03-26 17:09] LABS: Absolute Lymphocytes (CBC) 1.8 K/uL (0.7-4.9); Hematocrit 33.9 % (36.0-45.0); Lymphocytes % 21.4 % (15.3-44.8); MCV 86.4 fL (80-100); MPV 8.7 fL (7.6-11.3); Platelets 247 thou/uL (152-406); RBC Red Blood Cell Count 3.92 M/uL (3.86-4.86)
[2023-03-26 17:13] LABS: Protime INR 1.07
[2023-03-26 17:16] LABS: Barbiturates POSITIVE (NEGATIVE); Benzodiazepines POSITIVE (NEGATIVE); Cocaine NEGATIVE (NEGATIVE); METHAMPHETAM NEGATIVE (NEGATIVE); Opiates NEGATIVE (NEGATIVE); Phencyclidine NEGATIVE (NEGATIVE); THC Cannibis NEGATIVE (NEGATIVE)
[2023-03-26] MEDS ORDERED: LORazepam 2 MG/ML VIAL ONE ×2 (17:26→18:10)
[2023-03-26 17:27] LABS: Methadone ND (NEGATIVE)
[2023-03-26 17:30] LABS: ALT/SGPT 20 U/L (13-56); AST/SGOT 14 U/L (15-37); Albumin 3.9 g/dL (3.4-5.0); Alkaline Phosphatase 87 U/L (45-117); BUN Blood Urea Nitrogen 21 mg/dL (7-18); Bicarbonate 27 mEq/L (21-32); Bilirubin Direct < 0.1 mg/dL (0-0.2); Bilirubin Indirect, Calculated ND mg/dL (0.2-0.8); Bilirubin Total 0.3 mg/dL (0.2-1.0); Glomerular Filtration Rate 42 ml/min (=/>90); Glucose Level 100 mg/dL (74-106); Potassium 3.7 mEq/L (3.5-5.1); Protein, Total 7.6 g/dL (6.4-8.2); Sodium Level 137 mEq/L (136-145)
--- NOTE | 2023-03-26 17:46 | ER ---
Nurse's Notes [facility] Name: Janice Harry Age: 67 yrs Sex: Female : 1955 Arrival Date: 03/26/2023 Time: 15:30 Bed 18 Private MD: Aiden Linn Diagnosis: Suicidal ideations Presentation: 03/26 15:44 Chief complaint: Sent by Dr. Sofia for SI. Pt reports increased anxiety and depression over hb the last week, not sleeping and can't get out of bed for the last few days. Stated "I just want to go to sleep and never wake up." Does not have plan. Reports multiple previous suicide attempts by overdose and cutting wrists. Coronavirus screen: At this time, the client does not indicate any symptoms associated with coronavirus-19. Ebola Screen: No symptoms or risks identified at this time. Initial Sepsis Screen: Does the patient meet any 2 criteria? No. Patient's initial sepsis screen is negative. Does the patient have a suspected source of infection? No. Patient's initial sepsis screen is negative. Risk Assessment: Do you want to hurt yourself or someone else? Patient reports no desire to harm self or others. Onset of symptoms was March 26, 2023. 15:44 Method Of Arrival: Ambulatory hb 15:44 Acuity: HEBER 2 hb Historical: - Allergies: 15:47 Cipro; hb 15:47 Codeine; hb 15:47 Requip; hb 15:47 Tegretol; hb - Home Meds: 15:47 clonazepam 0.5 mg oral tablet as needed [Active]; vilazodone 40 mg oral tablet daily hb [Active]; olmesartan 20 mg oral tablet [Active]; Metformin Oral [Active]; 15:50 Trelegy Ellipta inhalation [Active]; Combivent Inhl [Active]; ezetimibe 10 mg oral hb tablet daily [Active]; allopurinol 100 mg Oral tablet daily [Active]; Singulair 10 mg Oral tablet [Active]; metoprolol succinate 25 mg oral Tablet, Extended Release 24 hr [Active]; atorvastatin 10 mg oral tablet [Active]; Seroquel 150 mg Oral tablet daily [Active]; zolpidem 10 mg Oral tablet [Active]; primidone 100 mg Oral tablet daily [Active]; doxazosin 1 mg oral tablet nightly [Active]; - PMHx: 15:47 Anxiety; Asthma; Depression; Hypertension; Takotsubo Cardiomyopathy; Hyperlipidemia; hb - Immunization history:: Adult Immunizations up to date. - Social history:: Smoking status: Patient reports the use of cigarette tobacco products, denies chronic smoking, but will smoke occasionally. Screenin:30 [facility] ED Fall Risk Assessment (Adult) History of falling in the last 3 months, kd3 including since admission No falls in past 3 months (0 pts) Confusion or Disorientation No (0 pts) Intoxicated or Sedated No (0 pts) Impaired Gait No (0 pts) Mobility Assist Device Used No (0 pt) Altered Elimination No (0 pt) Score/Fall Risk Level 0 - 2 = Low Risk Maintained a safe environment. Abuse screen: Denies threats or abuse. Denies injuries from another. Nutritional screening: No deficits noted. Tuberculosis screening: No symptoms or risk factors identified. Assessment: 15:30 General: Appears uncomfortable, Behavior is crying. kd3 15:30 Neuro: Level of Consciousness is awake, alert, obeys commands, Oriented to person, kd3 place, time, situation. Cardiovascular: Patient's skin is warm and dry. Respiratory: Airway is patent Trachea midline Respiratory effort is even, unlabored, Respiratory pattern is regular, symmetrical. 17:03 General: Appears uncomfortable, Behavior is crying. Pain: Denies pain. Neuro: Level of kd3 Consciousness is awake, alert, obeys commands, Oriented to person, place, time, situation. Cardiovascular: Patient's skin is warm and dry. Respiratory: Airway is patent Trachea midline Respiratory effort is even, unlabored, Respiratory pattern is regular, symmetrical. 18:02 General: Pt came out of her room demanding to leave. This Rn discussed with the patient kd3 the process regarding transferring the patient to a psych facility. Pt expressed having increasing anxiety in regards to her personal belongings. This Rn assured the patient that here belongings were personally handed off to security by this RN and that security placed them in storage. Pt successfully DE-escalated and medicated for anxiety. Pt has no new requests at this time. . 18:57 General: Pt seen resting in bed, eyes closed, respirations are even and unlabored. kd3 Lights dimmed, provided blanket and pillow for comfort. . 19:20 General: Appears distressed, uncomfortable, Behavior is anxious, crying. jw7 19:20 General: stated "I want to go to sleep and never wake up".. Pain: Denies pain. Neuro: jw7 Level of Consciousness is awake, alert, obeys commands, Oriented to person, place, time, situation. Cardiovascular: Capillary refill < 3 seconds Clubbing of nail beds is absent JVD is absent Patient's skin is warm and dry. Respiratory: Airway is patent Trachea midline Respiratory effort is even, unlabored, Respiratory pattern is regular, symmetrical. GI: No deficits noted. No signs and/or symptoms were reported involving the gastrointestinal system. Abdomen is round non-distended. : No deficits noted. No signs and/or symptoms were reported regarding the genitourinary system. EENT: No deficits noted. No signs and/or symptoms were reported regarding the EENT system. Derm: No signs and/or symptoms reported regarding the dermatologic system. Skin is intact, is healthy with good turgor, Skin is dry, Skin is normal, Skin temperature is warm. Musculoskeletal: No signs and/or symptoms reported regarding the musculoskeletal system. Circulation, motion, and sensation intact. Range of motion: intact in all extremities. 20:30 Reassessment: Patient appears in no apparent distress at this time. No changes from jw7 previously documented assessment. Patient and/or family updated on plan of care and expected duration. Pain level reassessed. Patient is alert, oriented x 3, equal unlabored respirations, skin warm/dry/pink. 21:40 Reassessment: Patient appears in no apparent distress at this time. No changes from jw7 previously documented assessment. Patient and/or family updated on plan of care and expected duration. Pain level reassessed. Patient is alert, oriented x 3, equal unlabored respirations, skin warm/dry/pink. 22:25 Reassessment: Patient appears in no apparent distress at this time. No changes from jw7 previously documented assessment. Patient and/or family updated on plan of care and expected duration. Pain level reassessed. Patient is alert, oriented x 3, equal unlabored respirations, skin warm/dry/pink. 23:20 Reassessment: Patient appears in no apparent distress at this time. Patient and/or jw7 family updated on plan of care and expected duration. Pain level reassessed. Patient is alert, oriented x 3, equal unlabored respirations, skin warm/dry/pink. resting with eyes closed, respirations even and unlabored. Psych: 17:23 [place] Suicide Severity Screening: In the past month, have you wished you were kd3 or wished you could go to sleep and not wake up? Patient responds "yes." Based off the client's responses additional C-SSRS screening is required. "In the past month, have you actually had any thoughts of killing yourself?" Patient responds "yes." Based off the client's response additional [place] suicide severity screening questions to be further documented on paper forms. "In your lifetime, have you ever done anything, started to do anything, or prepared to do anything to end your life?" Patient responds "yes." Patient reports suicidal intent occurred greater than 3 months prior. Subjective: Patient's mood is sad, Delusions are denied, Hallucinations are denied Having thoughts of suicide. Denies suicidal plan. Objective: Patient is cooperative, irritable, restless, Speech is normal, Affect is appropriate. Interventions: Removed personal items and placed in bag. Patient placed in hospital gown. Searched person for dangerous items. Urine collected and sent for urine drug test. Belonging list filled out. Safety Checks: Personal items have been removed. Door is open. Visitors are present. Pt denies substance abuse. Commitment: Patient will be a voluntary commitment. Vital Signs: 15:44 BP 160 / 100; Pulse 119; Resp 16; Temp 99.5(TE); Pulse Ox 97% on R/A; Weight 99.79 kg; hb Height 5 ft. 8 in. ; Pain 0/10; 19:30 BP 111 / 69; Pulse 76 MON; Resp 14 S; Temp 97.3(O); Pulse Ox 96% on R/A; jw7 15:44 Body Mass Index 33.45 (99.79 kg, 172.72 cm) hb 15:44 Pain Scale: Adult hb ED Course: 15:30 suicide precautions. kd3 15:30 Provided Education on: suicide precautions/ transfer process. . kd3 15:33 Patient arrived in ED. mr 15:33 Aiden Linn DO is Private Physician. mr 15:33 [facility] jh7 15:33 Vinayak Martínez MD is Attending Physician. jh7 15:47 Triage completed. hb 15:54 Arm band placed on. hb 16:02 Kanika Zuluaga, RN is Primary Nurse. kd3 17:00 No provider procedures requiring assistance completed. Inserted saline lock: 20 gauge kd3 in right antecubital area, using aseptic technique. Blood collected. 17:04 Acetaminophen Sent. kd3 17:04 Basic Metabolic Panel Sent. kd3 17:04 CBC with Diff Sent. kd3 17:04 ETOH Level Sent. kd3 17:04 Hepatic Function Sent. kd3 17:04 PT-INR Sent. kd3 17:04 Ptt, Activated Sent. kd3 17:04 Salicylate Sent. kd3 17:04 Urine Drug Screen Sent. kd3 18:33 faxed patient clincals to [facility] , and [facility] in eb attempt to find placement. 18:49 PHCP role handed off by Hannah Viera FNP sb4 18:49 Yana Morgan PA-C is PHCP. sb4 20:54 Primary Nurse role handed off by Kanika Zuluaga, LESLIE 21:08 Josefa Kang, LESLIE is Primary Nurse. jw7 23:01 Pt accepted for transfer to [facility] by Dr. Yates per Jess Morgan. wm 23:55 IV discontinued, intact, bleeding controlled, No redness/swelling at site. Pressure jw7 dressing applied. Administered Medications: 17:00 Drug: Ativan (LORazepam) 1 mg IVP once Route: IVP; Site: right antecubital; kd3 18:13 Follow up: Response: No adverse reaction kd3 18:01 Drug: Ativan IVP 1 mg IVP once Route: IVP; Site: right antecubital; kd3 18:13 Follow up: Response: No adverse reaction kd3 19:27 Drug: Geodon IM 10 mg IM once; may repeat 30 minutes after initial dose if needed jw7 Route: IM; Site: right deltoid; 20:45 Follow up: Response: No adverse reaction; Marked relief of symptoms jw7 Medication: 17:03 VIS not applicable for this client. kd3 Outcome: 17:46 ER care complete, transfer ordered by . 7 23:50 Transferred by [place]. Note: [place] jw7 23:50 Condition: stable 23:50 Instructed on the need for transfer, Demonstrated understanding of instructions, 23:59 Patient left the ED. jw7 Signatures: Josefa Mckinley, Reg Reg mr Pili Clinton, RN RN hb Mary Colvin Wendy wm Doucette, Kyli RN RN kd3 Josefa Kang RN RN jw7 Hannah Viera, HORTICULTURAL SERVICES SUPERVISOR HORTICULTURAL SERVICES SUPERVISOR jhYana Ackerman PAGrey PAGrey sb4
--- NOTE | 2023-03-26 17:46 | EDPHYS ---
Physician Documentation [facility] Name: Janice Harry Age: 67 yrs Sex: Female : 1955 Arrival Date: 03/26/2023 Time: 15:30 Bed 18 Private MD: Aiden Linn ED Physician Vinayak Martínez HPI: 03/26 15:50 This 67 yrs old Female presents to ER via Ambulatory with complaints of Suicidal jh7 Ideation. 15:50 The patient presents to the emergency department with suicide ideation, and the patient jh7 has a plan, to overdose with medications. Onset: The symptoms/episode began/occurred gradually, and became worse 2 week(s) ago. Past psychiatric history: Prior diagnosis: depression, Psychiatric medications include: Clonazepam, Seroquel, Primary psychiatric physician: Dr. Sofia, the patient has had a prior suicide gesture, where the patient cut wrists, where the patient took pills/meds, the patient has a previous inpatient psychiatric history. Associated signs and symptoms: Pertinent positives; anxiety, suicide ideation, Pertinent negatives: homicidal ideation. Sent by Dr. Sofia for increasing anxiety and suicidal thoughts over the past few weeks. The patient states that she just wants to go to sleep and never wake up. She plans on overdosing.. Historical: - Allergies: 15:47 Cipro; hb 15:47 Codeine; hb 15:47 Requip; hb 15:47 Tegretol; hb - Home Meds: 15:47 clonazepam 0.5 mg oral tablet as needed [Active]; vilazodone 40 mg oral tablet daily hb [Active]; olmesartan 20 mg oral tablet [Active]; Metformin Oral [Active]; 15:50 Trelegy Ellipta inhalation [Active]; Combivent Inhl [Active]; ezetimibe 10 mg oral hb tablet daily [Active]; allopurinol 100 mg Oral tablet daily [Active]; Singulair 10 mg Oral tablet [Active]; metoprolol succinate 25 mg oral Tablet, Extended Release 24 hr [Active]; atorvastatin 10 mg oral tablet [Active]; Seroquel 150 mg Oral tablet daily [Active]; zolpidem 10 mg Oral tablet [Active]; primidone 100 mg Oral tablet daily [Active]; doxazosin 1 mg oral tablet nightly [Active]; - PMHx: 15:47 Anxiety; Asthma; Depression; Hypertension; Takotsubo Cardiomyopathy; Hyperlipidemia; hb - Immunization history:: Adult Immunizations up to date. - Social history:: Smoking status: Patient reports the use of cigarette tobacco products, denies chronic smoking, but will smoke occasionally. ROS: 15:50 Constitutional: Negative for fever, chills, and weight loss, Eyes: Negative for injury, jh7 pain, redness, and discharge, Cardiovascular: Negative for chest pain, palpitations, and edema, Respiratory: Negative for shortness of breath, cough, wheezing, and pleuritic chest pain, Abdomen/GI: Negative for abdominal pain, nausea, vomiting, diarrhea, and constipation, MS/Extremity: Negative for injury and deformity, Skin: Negative for injury, rash, and discoloration, Neuro: Negative for headache, weakness, numbness, tingling, and seizure, 15:50 Psych: Positive for anxiety, depression, suicidal ideation, Negative for homicidal ideation, 15:50 All other systems are negative, Exam: 15:50 Constitutional: This is a well developed, well nourished patient who is awake, alert, jh7 and in no acute distress. Head/Face: Normocephalic, atraumatic. Neck: Trachea midline, no thyromegaly or masses palpated, and no cervical lymphadenopathy. Supple, full range of motion without nuchal rigidity, or vertebral point tenderness. No Meningismus. Cardiovascular: Regular rate and rhythm with a normal S1 and S2. No gallops, murmurs, or rubs. Normal PMI, no JVD. No pulse deficits. Respiratory: Lungs have equal breath sounds bilaterally, clear to auscultation and percussion. No rales, rhonchi or wheezes noted. No increased work of breathing, no retractions or nasal flaring. Abdomen/GI: Soft, non-tender, with normal bowel sounds. No distension or tympany. No guarding or rebound. No evidence of tenderness throughout. Skin: Warm, dry with normal turgor. Normal color with no rashes, no lesions, and no evidence of cellulitis. MS/ Extremity: Pulses equal, no cyanosis. Neurovascular intact. Full, normal range of motion. Neuro: Awake and alert, GCS 15, oriented to person, place, time, and situation. Motor strength 5/5 in all extremities. Sensory grossly intact. Cerebellar exam normal. Normal gait. 15:50 Psych: Behavior/mood is anxious, suicidal, Affect is Crying. Oriented to person, place, time, Patient having thoughts of suicide. Plan for suicide is overdose Judgement / Insight is normal. Memory is normal. Delusions/hallucinations are not present. Vital Signs: 15:44 BP 160 / 100; Pulse 119; Resp 16; Temp 99.5(TE); Pulse Ox 97% on R/A; Weight 99.79 kg; hb Height 5 ft. 8 in. ; Pain 0/10; 19:30 BP 111 / 69; Pulse 76 MON; Resp 14 S; Temp 97.3(O); Pulse Ox 96% on R/A; jw7 15:44 Body Mass Index 33.45 (99.79 kg, 172.72 cm) hb 15:44 Pain Scale: Adult hb MDM: 15:33 Patient medically screened. [facility] 17:20 ED course: Patient becoming increasingly anxious and aggressive with staff. She states [facility] that she does not want to wait to be transferred and threatened to leave. LEO paperwork initiated.. 17:20 Differential diagnosis: acute psychotic break, depression. Data reviewed: vital signs, [facility] nurses notes, lab test result(s), EKG. Consideration of Admission/Observation will transfer to a psych facility. I considered the following discharge prescriptions or medication management in the emergency department Medications were administered in the Emergency Department. See MAR. Counseling: I had a detailed discussion with the patient and/or guardian regarding the historical points, exam findings, and any diagnostic results supporting the discharge/admit diagnosis, the need to transfer to another facility, [facility] does not immediately have the required specialist. 03/26 15:59 Order name: Acetaminophen; Complete Time: 17:45 [facility] 03/26 15:59 Order name: Basic Metabolic Panel; Complete Time: 17:45 [facility] 03/26 15:59 Order name: CBC with Diff; Complete Time: 17:19 [facility] 03/26 15:59 Order name: ETOH Level; Complete Time: 17:20 [facility] 03/26 15:59 Order name: Hepatic Function; Complete Time: 17:45 [facility] 03/26 15:59 Order name: PT-INR; Complete Time: 17:16 [facility] 03/26 15:59 Order name: Ptt, Activated; Complete Time: 17:16 [facility] 03/26 15:59 Order name: Salicylate; Complete Time: 17:45 7 03/26 15:59 Order name: Urine Drug Screen; Complete Time: 17:45 7 03/26 15:59 Order name: EKG; Complete Time: 15:59 7 03/26 15:59 Order name: EKG - Nurse/Tech; Complete Time: 17:02 [facility] 03/26 15:59 Order name: IV Saline Lock; Complete Time: 17:02 7 03/26 15:59 Order name: Labs collected and sent; Complete Time: 17:02 7 03/26 15:59 Order name: Suicide Precautions; Complete Time: 17:02 [facility] 03/26 15:59 Order name: Suicide Screening ([place]); Complete Time: 17:04 7 EC:22 Rate is 102 beats/min. Rhythm is regular. QRS [place] is Normal. ME interval is normal at [facility] 190 msec. QRS interval is normal at 88 msec. QT interval is normal at 340 msec. No Q waves. T waves are Normal. Clinical impression: Sinus tachycardia with left anterior fascicular block. Administered Medications: 17:00 Drug: Ativan (LORazepam) 1 mg IVP once Route: IVP; Site: right antecubital; kd3 18:13 Follow up: Response: No adverse reaction kd3 18:01 Drug: Ativan IVP 1 mg IVP once Route: IVP; Site: right antecubital; kd3 18:13 Follow up: Response: No adverse reaction kd3 19:27 Drug: Geodon IM 10 mg IM once; may repeat 30 minutes after initial dose if needed jw7 Route: IM; Site: right deltoid; 20:45 Follow up: Response: No adverse reaction; Marked relief of symptoms jw7 Disposition: 03/27 07:06 Co-signature as Attending Physician, Vinayak Martínez MD I reviewed the patient's care rt provided by the Advanced Practice Provider and agree with the diagnosis and treatment plan. Disposition Summary: 03/26/23 17:46 Transfer Ordered Notes: Transfer Location: [facility] Reason: Higher level of care jh Condition: Stable jh7 Problem: an ongoing problem jh7 Symptoms: have worsened jh7 Accepting Physician: Psych Facility(03/26/23 23:59) jw7 Diagnosis - Suicidal ideations [facility] Forms: - Medication Reconciliation Form [facility] - SBAR form [facility] Signatures: Dispatcher [employer] Juanita Franklin RN RN kl Baxter, Heather, RN RN Kanika Zuluaga RN RN kd3 Josefa Kang RN RN [facility] Hannah Viera, PERSONNEL TRAINING OFFICER PERSONNEL TRAINING OFFICER [facility] Vinayak Martínez MD MD rt Corrections: (The following items were deleted from the chart) 03/26 23:59 17:46 Psych Facility [place] [id number]
[2023-03-26] MEDS ORDERED: ZIPRASIDONE MESYLA 20 MG/VIAL IM ONE (19:25)
[2023-03-27 00:53] VITALS: BP 111/69; TEMP 97.3; O2SAT 96
--- NOTE | 2023-03-29 12:23 | EKG ---
Test Date: 2023-03-26 Test Time: 16:22:00 Hearing Therapy Director: BRANDAN MEASUREMENT RESULTS: Intervals: Rate: 102 NV: 190 QRSD: 88 QT: 340 QTc: 443 [place]: P: 54 NV: 190 QRS: -54 T: 32 INTERPRETIVE STATEMENTS: Sinus tachycardia Left anterior fascicular block Cannot rule out Inferior infarct (masked by fascicular block?), age undetermined Possible Anterior infarct, age undetermined Abnormal ECG Compared to ECG 10/26/2022 13:19:16 Left anterior fascicular block now present Sinus rhythm no longer present Left-axis deviation no longer present Myocardial infarct finding still present Electronically Signed On 03-29-23 12:17:59 CDT by Sharath Larsen
== END 2023-03-26 23:59 ==
LOC: ER 15:30
DX: R45.851 Suicidal ideations (principal); F32.A Depression, unspecified; F17.210 Nicotine dependence, cigarettes, uncomplicated; Z88.1 Allergy status to other antibiotic agents; Z88.5 Allergy status to narcotic agent; Z88.8 Allergy status to other drugs, medicaments and biological substances
CPT/HCPCS: 85025; 80048; 36415; 85610; 80076; 85730; 80307; 96372; 96374; 99285; 80143; 80179; 82077; J3486; 93005

== ENCOUNTER 2023-09-03 14:41 | Inpatient (IN) | payer MEDICARE ==
[2023-09-03] MEDS ORDERED: NA CHLORIDE 0.9% 1,000 ML ONE (16:14)
[2023-09-03 16:23] LABS: Absolute Basophils 0.1 K/uL (0-0.5); Absolute Eosinophils 0.1 K/uL (0-0.5); Absolute Lymphocytes (CBC) 1.2 K/uL (0.7-4.9); Absolute Monocytes 0.6 K/uL (0.1-1.3); Absolute Neutrophil 6.1 K/uL (1.8-8.0); Basophils % 0.8 % (0-1.3); Eosinophils % 0.8 % (0-4.4); Hematocrit 34.1 % (36.0-45.0); Hemoglobin 11.8 g/dL (12.0-15.0); Lymphocytes % 15.2 % (15.3-44.8); MCH 30.2 pg (27.0-35.0); MCHC 34.6 g/dL (32.0-36.0); MCV 87.3 fL (80-100); Monocytes % 7.8 % (3.3-12.3); Neutrophils % 75.4 % (41.7-73.7); Platelets 284 thou/uL (152-406); Red Cell Distribution Width 13.9 % (12.1-15.2)
[2023-09-03 16:40] LABS: Albumin/Globulin Ratio 1.1 (1.1-1.8); Anion Gap 11.5 mEq/L (5.0-15.0); Bilirubin Total 0.5 mg/dL (0.2-1.0); Globulin 3.8 g/dL (2.3-3.5); Potassium 4.5 mEq/L (3.5-5.1); Protein, Total 7.8 g/dL (6.4-8.2)
[2023-09-03 16:46] LABS: Specific Gravity 1.014 (1.005-1.030); Sqamous Epithelial <5 /HPF (None Seen); Urine Bacteria None Seen /HPF (<20); Urine Bilirubin NEGATIVE (Negative); Urine Blood 1+ (Negative); Urine Clarity Turbid (Clear); Urine Color Light-Yellow (Yellow); Urine Culture Reflex Order NOT NEEDED; Urine Glucose NEGATIVE (Negative); Urine Ketones NEGATIVE (Negative); Urine Micro Reflex YN NO BILL MICROSCOPIC; Urine Mucus Slight /HPF (None Seen); Urine Nitrite NEGATIVE (Negative); Urine Protein NEGATIVE (Negative); Urine RBC <5 /HPF (None Seen); Urine Urobilinogen Normal (Normal); Urine WBC <5 /HPF (<5); Urine pH 5.5 (5.0-7.0)
--- NOTE | 2023-09-03 16:56 | ER ---
Nurse's Notes [facility] Name: Janice Harry Age: 67 yrs Sex: Female : 1955 Arrival Date: 09/03/2023 Time: 14:41 Bed 16 Private MD: Diagnosis: Hypo-osmolality and hyponatremia Presentation: 09/02 14:50 Chief complaint: Patient states: Unable to urinate well lately, very small amount when ll1 she did void. No urge to void for a few weeks. +weak and nausea. No appeite. Coronavirus screen: Client denies travel out of the [place] in the last 14 days. At this time, the client does not indicate any symptoms associated with coronavirus-19. Ebola Screen: Patient denies travel to an Ebola-affected area in the 21 days before illness onset. Initial Sepsis Screen: Does the patient meet any 2 criteria? No. Patient's initial sepsis screen is negative. Does the patient have a suspected source of infection? No. Patient's initial sepsis screen is negative. Risk Assessment: Do you want to hurt yourself or someone else? Patient reports no desire to harm self or others. Onset of symptoms was August 05, 2023. 14:50 Method Of Arrival: Ambulatory ll1 14:50 Acuity: HEBER 3 ll1 Triage Assessment: 14:52 General: Appears in no apparent distress. Behavior is calm, cooperative, appropriate ll1 for age. Neuro: Reports weakness. : Reports inability to void. Derm:. Historical: - Allergies: 14:49 Cipro; ll1 14:49 Codeine; ll1 14:49 Requip; ll1 14:49 Tegretol; ll1 14:56 Keflex; ll1 - PMHx: 14:49 Anxiety; Hyperlipidemia; Takotsubo Cardiomyopathy; Asthma; Hypertension; Depression; ll1 - PSHx: 14:49 Appendectomy; section; ll1 14:56 joint replacements; Cholecystectomy; ll1 - Immunization history:: Adult Immunizations up to date. - Social history:: Smoking status: Reported history of juuling and/or vaping. Patient denies any tobacco usage or history of. Screenin:[address] [facility] ED Fall Risk Assessment (Adult) History of falling in the last 3 months, kc6 including since admission No falls in past 3 months (0 pts) Confusion or Disorientation No (0 pts) Intoxicated or Sedated No (0 pts) Impaired Gait No (0 pts) Mobility Assist Device Used No (0 pt) Altered Elimination No (0 pt) Score/Fall Risk Level 0 - 2 = Low Risk. Abuse screen: Denies threats or abuse. Denies injuries from another. Nutritional screening: No deficits noted. Tuberculosis screening: No symptoms or risk factors identified. Assessment: 16:10 Reassessment: post void residual = 194mL. pt states she feels like her bladder is empty kc6 now. Dr. Hare notified. 16:12 General: Appears in no apparent distress. comfortable, well groomed, well developed, kc6 Behavior is calm, cooperative, appropriate for age. Pain: Denies pain. Neuro: Level of Consciousness is awake, alert, obeys commands, Oriented to person, place, time, situation, Appropriate for age Reports weakness. Cardiovascular: Capillary refill < 3 seconds. Respiratory: Airway is patent Trachea midline Respiratory effort is even, unlabored, Respiratory pattern is regular, symmetrical. GI: Reports nausea, Patient currently denies abdominal pain, diarrhea, vomiting. : Urine is clear, Reports inability to void. EENT: No signs and/or symptoms were reported regarding the EENT system. Derm: No signs and/or symptoms reported regarding the dermatologic system. Skin is intact, is healthy with good turgor, Skin is pink, warm \T\ dry. Musculoskeletal: No signs and/or symptoms reported regarding the musculoskeletal system. Circulation, motion, and sensation intact. Capillary refill < 3 seconds, Range of motion: intact in all extremities. 17:07 Reassessment: Patient appears in no apparent distress at this time. No changes from kc6 previously documented assessment. Patient and/or family updated on plan of care and expected duration. Pain level reassessed. Patient is alert, oriented x 3, equal unlabored respirations, skin warm/dry/pink. 18:07 Reassessment: Patient appears in no apparent distress at this time. No changes from kc6 previously documented assessment. Patient and/or family updated on plan of care and expected duration. Pain level reassessed. Patient is alert, oriented x 3, equal unlabored respirations, skin warm/dry/pink. Vital Signs: 14:53 BP 136 / 73; Pulse 76; Resp 16; Temp 97.7; Pulse Ox 100% ; Weight 97.52 kg; Height 5 ll1 ft. 8 in. ; Pain 0/10; 17:07 BP 129 / 71; Pulse 59; Resp 16 S; Pulse Ox 98% on R/A; kc6 14:53 Body Mass Index 32.69 (97.52 kg, 172.72 cm) ll1 14:53 Pain Scale: Adult ll1 ED Course: 14:44 Patient arrived in ED. mg5 14:45 Davey Hare MD is Attending Physician. ec2 14:49 Arm band placed on. ll1 14:52 Triage completed. ll1 16:10 Lisa Rodriguez RN is Primary Nurse. kc6 16:10 UAM Sent. kc6 16:11 Patient maintains SpO2 saturation greater than 95% on room air. kc6 16:12 Patient has correct armband on for positive identification. Placed in gown. Bed in low kc6 position. Call light in reach. Side rails up X 1. Client placed on continuous cardiac and pulse oximetry monitoring. NIBP monitoring applied. 16:18 Initial lab(s) drawn, by me, sent to lab. Inserted saline lock: 20 gauge in right kd3 antecubital area, using aseptic technique. Blood collected. 16:55 Pantera Aguirre MD is Hospitalizing Provider. ec2 18:00 COVID-19 SARS RT PCR Sent. kc6 18:00 Flu Sent. kc6 18:00 Urine Osmolality Sent. kc6 18:00 Osmolality, Serum Sent. kc6 18:00 Urine Potassium Random Sent. kc6 18:00 Urine Sodium Random Sent. kc6 18:00 Urine Creatinine Sent. kc6 19:00 Report given to LESLIE Desai. kc6 Administered Medications: 16:19 Drug: NS 0.9% IV 1000 ml IV at 1 bolus Per protocol; 1000 mL bolus Route: IV; Rate: 1 kc6 bolus; Site: right antecubital; 17:40 Follow up: Response: No adverse reaction; IV Status: Completed infusion; IV Intake: kc6 1000ml 18:00 Drug: Lactated Ringers Solution IV 1000 ml IV at 100 ml/hr continuous Route: IV; Rate: kc6 100 ml/hr; Site: right antecubital; 18:00 Drug: Pantoprazole IVP 40 mg IVP once Route: IVP; Site: right antecubital; kc6 19:10 Follow up: Response: No adverse reaction kc6 18:00 Drug: morphine IVP or IV 2 mg IVP once over 4 mins Route: IVP; Infused Over: 4 mins; kc6 Site: right antecubital; 19:10 Follow up: Response: No adverse reaction; Pain is decreased; RASS: Alert and Calm (0) kc6 Intake: 17:40 IV: 1000ml; Total: 1000ml. kc6 Outcome: 16:55 Decision to Hospitalize by Provider. ec2 19:23 Patient left the ED. rv Signatures: Eleuterio Levin RN RN Shantell Plasencia RN RN ll1 Kanika Zuluaga RN RN kd3 Lisa Rodriguez RN RN kc6 Danitza Yanes mg5 Davey Hare MD MD ec2 Corrections: (The following items were deleted from the chart) 14:57 14:53 Pulse 76bpm; Resp 16bpm; Pulse Ox 100%; Temp 97.7F; 97.52 kg; Height 5 ft. 8 in.; ll1 BMI: 32.6; Pain 0/10, Adult; ll1
--- NOTE | 2023-09-03 16:56 | EDPHYS ---
Physician Documentation [facility] Name: Janice Harry Age: 67 yrs Sex: Female : 1955 Arrival Date: 09/03/2023 Time: 14:41 Bed 16 Private MD: ED Physician Davey Hare HPI: 09/02 14:58 This 67 yrs old Female presents to ER via Ambulatory with complaints of ec2 decreased urine output. 14:58 Patient arrives today for evaluation of generalized weakness as well as decreased ec2 urinary output. Patient reports she has a history of CKD, states that she is been having some decreased urine output. Patient reports no dysuria, no abdominal pain, no fevers or chills, no nausea or vomiting. Does report some generalized weakness.. Historical: - Allergies: 14:49 Cipro; ll1 14:49 Codeine; ll1 14:49 Requip; ll1 14:49 Tegretol; ll1 14:56 Keflex; ll1 - PMHx: 14:49 Anxiety; Hyperlipidemia; Takotsubo Cardiomyopathy; Asthma; Hypertension; Depression; ll1 - PSHx: 14:49 Appendectomy; section; ll1 14:56 joint replacements; Cholecystectomy; ll1 - Immunization history:: Adult Immunizations up to date. - Social history:: Smoking status: Reported history of juuling and/or vaping. Patient denies any tobacco usage or history of. ROS: 14:58 Constitutional: as per hpi ec2 Exam: 14:58 Constitutional: GEN: NAD Head: atraumatic Eyes: EOMI Ears: External ears are ec2 normal. CV: regular rate LUNGS: no respiratory distress ABD: non-distended SKIN: no evidence of rashes MSK: no evidence of trauma NEURO: moves all extremities equally Vital Signs: 14:53 BP 136 / 73; Pulse 76; Resp 16; Temp 97.7; Pulse Ox 100% ; Weight 97.52 kg; Height 5 ll1 ft. 8 in. ; Pain 0/10; 17:07 BP 129 / 71; Pulse 59; Resp 16 S; Pulse Ox 98% on R/A; kc6 14:53 Body Mass Index 32.69 (97.52 kg, 172.72 cm) ll1 14:53 Pain Scale: Adult ll1 MDM: 14:50 Patient medically screened. ec2 14:58 Data reviewed: vital signs. ED course: Patient arrives today for evaluation of ec2 generalized weakness as well as decreased urine. Examination remarkable for well-appearing nontoxic individual is in no acute distress with reassuring hemodynamics. Will obtain lab work, urine studies. Evaluating for progression of CKD, electrolyte disturbances, anemia. . 16:40 ED course: CBC is reassuring.. Patient was able to urinate without issue.. ec2 16:55 ED course: Patient with hyponatremia, sodium of 124. Will admit for hyponatremia, ec2 discussed with hospitalist, pending admission.. 09/02 14:55 Order name: CBC with Diff; Complete Time: 16:40 ec2 09/02 14:55 Order name: CMP; Complete Time: 16:50 ec2 09/02 14:55 Order name: UAM; Complete Time: 16:50 ec2 09/02 16:55 Order name: Urine Creatinine la1 09/02 16:55 Order name: Urine Sodium Random la1 09/02 16:55 Order name: Urine Potassium Random la1 09/02 16:55 Order name: Osmolality, Serum la1 09/02 16:55 Order name: Urine Osmolality la1 09/02 17:21 Order name: Flu la1 09/02 17:21 Order name: COVID-19 SARS RT PCR la1 09/02 18:52 Order name: CBC with Automated Diff EDMS 09/02 18:52 Order name: CBC with Automated Diff EDMS 09/02 18:52 Order name: CBC with Automated Diff EDMS 09/02 18:52 Order name: CBC with Automated Diff EDMS 09/02 18:52 Order name: Comprehensive Metabolic Panel EDMS 09/02 18:52 Order name: Comprehensive Metabolic Panel EDMS 09/02 18:52 Order name: Comprehensive Metabolic Panel EDMS 09/02 18:52 Order name: Comprehensive Metabolic Panel EDMS 09/02 18:52 Order name: Magnesium EDMS 09/02 18:52 Order name: Magnesium EDMS 09/02 18:52 Order name: Magnesium EDMS 09/02 18:52 Order name: Magnesium EDMS 09/02 18:52 Order name: T4 Free EDMS 09/02 18:52 Order name: T4 Free EDMS 09/02 18:52 Order name: Thyroid Stimulating Hormone EDMS 09/02 18:52 Order name: Thyroid Stimulating Hormone [facility] 09/02 18:52 Order name: Basic Metabolic Panel [facility] 09/02 18:52 Order name: Physical Therapy Consult [facility] 09/02 14:55 Order name: Bladder Scanner; Complete Time: 16:10 ec2 Administered Medications: 16:19 Drug: NS 0.9% IV 1000 ml IV at 1 bolus Per protocol; 1000 mL bolus Route: IV; Rate: 1 kc6 bolus; Site: right antecubital; 17:40 Follow up: Response: No adverse reaction; IV Status: Completed infusion; IV Intake: kc6 1000ml 18:00 Drug: Lactated Ringers Solution IV 1000 ml IV at 100 ml/hr continuous Route: IV; Rate: kc6 100 ml/hr; Site: right antecubital; 18:00 Drug: Pantoprazole IVP 40 mg IVP once Route: IVP; Site: right antecubital; kc6 19:10 Follow up: Response: No adverse reaction kc6 18:00 Drug: morphine IVP or IV 2 mg IVP once over 4 mins Route: IVP; Infused Over: 4 mins; kc6 Site: right antecubital; 19:10 Follow up: Response: No adverse reaction; Pain is decreased; RASS: Alert and Calm (0) kc6 Disposition Summary: 09/03/23 16:55 Hospitalization Ordered Notes: Hospitalization Status: Inpatient Admission ec2 Provider: Pantera Aguirre ec2 Location: Telemetry/[facility] (Inpatient) ec2 Condition: Stable ec2 Problem: new ec2 Symptoms: are unchanged ec2 Bed/Room Type: Standard ec2 Room Assignment: [facility](09/03/23 17:33[place] [facility] [place] - Hypo-osmolality and hyponatremia ec2 Forms: - Medication Reconciliation Form ec2 - SBAR form ec2 - Leadership Thank You Letter ec2 Signatures: Dispatcher [employer] [facility] Morteza Salinas FNP-C FNP-Cla1 Shantell Paulino RN RN ll1 Lisa Rodriguez RN RN kc6 Carolina Reynoso 5 Davey Hare MD MD ec2 Corrections: (The following items were deleted from the chart) 15:47 15:46 Patient medically screened. ec2 ec2 16:10 14:55 Garcia ordered. ec2 kc6 17:33 16:55 ec2 5
--- NOTE | 2023-09-03 17:35 | P.HP ---
Certification for Inpatient Patient admitted to: Inpatient With expected LOS: >2 Midnights Patient will require the following post-hospital care: None Practitioner: I am a practitioner with admitting privileges, knowledge of patient current condition, hospital course, and medical plan of care. Services: Services provided to patient in accordance with Admission requirements found in Title 42 Section 412.3 of the Code of Federal Regulations Patient History Date of Service: 09/03/23 Reason for admission: Hyponatremia, weakness History of Present Illness: 67-year-old female with history of hypertension, hyperlipidemia, Takotsubo cardiomyopathy, asthma, depression, CKD presents the emergency department chief complaint of weakness, decreased urine output. She reports feeling generally unwell the past couple of months but especially the last 5 to 7 days with increasing nausea, the last 2 days had very poor oral intake. She denies any fever or chills or other specific symptoms. She does report some generalized bodyaches. She was evaluated in the emergency department her labs are significant for sodium 124 chloride 92 creatinine 1.57 which is similar to baseline with blood cell count 8 hemoglobin 1.8 medic at 34.1 UA not concerning for UTI, denies any urinary symptoms. She does also report a history of GERD she had a EGD performed less than 1 year ago with significant ulcerations/inflammation. Patient be admitted for further evaluation management of hyponatremia, weakness. Allergies Shellfish Allergy (Intermediate, Verified 10/23/21 07:19) Itching/Hives/Rash carbamazepine [From Tegretol] Allergy (Verified 10/23/21 07:19) Vomiting ciprofloxacin [From Cipro] Allergy (Verified 10/23/21 07:19) Itching codeine Allergy (Verified 10/23/21 07:19) Nausea/Vomiting ropinirole [From Requip] Allergy (Verified 10/23/21 07:19) Unknown sumatriptan [From Imitrex] Allergy (Verified 10/23/21 07:19) Dizziness, loss of conciousness tramadol Allergy (Verified 10/23/21 07:19) Itching Tramadol-Acetaminophen Allergy (Uncoded 10/23/21 07:19) Itching Home Medications: Cetirizine HCl [Zyrtec] 1 tab PO DAILY 02/17/21 buPROPion HCL [Wellbutrin*] 450 mg PO DAILY 02/17/21 Carvedilol [Coreg] 12.5 mg PO BID #60 tablet 02/18/21 Allopurinol 100 mg PO DAILY 09/01/21 Atorvastatin Calcium [Lipitor] 10 mg PO BEDTIME 09/01/21 Azelastine [Astelin 137MCG/Metered Hubbard] 2 sprays NS DAILY 09/01/21 Famotidine [Pepcid*] 40 mg PO BID 09/01/21 Fluticasone/Umeclidin/Vilanter [Trelegy Ellipta 100-62.5-25] 1 each IH DAILY 09/01/21 Ipratropium/Albuterol Sulfate [Combivent Respimat Inhal Hubbard] 4 gm IH PRN PRN 09/01/21 Montelukast [Singulair] 10 mg PO DAILY 09/01/21 Vilazodone HCl [Viibryd] 30 mg PO DAILY 09/01/21 Zolpidem Tartrate [Ambien] 10 mg PO BEDTIME 09/01/21 clonazePAM [Clonazepam] 0.5 mg PO TIDP PRN 09/01/21 - Past Medical/Surgical History Diabetic: No -: Anxiety/depression -: Hypertension -: Hyperlipidemia -: Asthma -: Takotsubo cardiomyopathy -: CKD -: Right shoulder -: Bilateral knee surgery -: Left elbow surgery -: Cholecystectomy -: Hysterectomy -: Appendectomy -: Breast augmentation/removal Psychosocial/ Personal History: Patient currently lives alone at adult living center - Family History Mother -: Hypertension Notes: Mental health disorder - Social History Smoking Status: Current every day smoker Counseled patient to stop smoking for: less than 10 minutes Smoking therapy provided: Yes Alcohol use: No CD- Drugs: No Caffeine use: Yes Place of Residence: Home Review of Systems 10-point ROS is otherwise unremarkable General: Malaise Gastrointestinal: Nausea Physical Examination - Physical Exam General: Alert, In no apparent distress, Oriented x3 HEENT: Atraumatic, PERRLA, EOMI Neck: Supple, 2+ carotid pulse no bruit, No LAD Respiratory: Clear to auscultation bilaterally, Normal air movement Cardiovascular: Regular rate/rhythm, Normal S1 S2 Gastrointestinal: Normal bowel sounds Musculoskeletal: No tenderness Integumentary: No rashes Neurological: Normal speech, Normal strength at 5/5 x4 extr, Normal tone, Normal affect - Studies Laboratory Data (last 24 hrs) 09/03/23 09/03/23 16:15 16:15 WBC 8.10 Hgb 11.8 L Hct 34.1 L Plt Count 284 Sodium 124 L Potassium 4.5 BUN 23 H Creatinine 1.57 H Glucose 113 H Total Bilirubin 0.5 AST 13 L ALT 20 Alkaline Phosphatase 81 Assessment and Plan - Plan Assessment: Hyponatremia Nausea, poor oral intake GERD Weakness Hypertension Hyperlipidemia History of asthma Depression CKD 3 Plan: Hyponatremia Nausea, poor oral intake GERD Weakness Reports poor oral intake the last 2 days, significant nausea for the last 5 to 7 days 12 pound weight loss in the last 6 weeks per patient Had EGD less than 1 year ago, patient reports that showed significant ulceration/gastritis Denies significant GERD symptoms contributing to her current nausea/anorexia Continue twice daily PPI, IV fluids PT consultation in place Hypertension Hyperlipidemia History of asthma Depression Continue home medications as prescribed CKD 3 Similar to baseline, continue gentle IV fluid DVT PPX: Lovenox Code status: Full Discharge Plan: Home Plan to discharge in: 48 Hours - Advance Directives Does patient have a Living Will: No Does patient have a Durable POA for Healthcare: No - Code Status/Comfort Care Code Status Assessed: Yes (Full code) Critical Care: No Time Spent Managing Pts Care (In Minutes): 70
[2023-09-03] MEDS ORDERED: PANTOPRAZOLE 40 MG INJ ONE (17:43)
[2023-09-03] MEDS ORDERED: MORPHINE 2 MG/ML SYR ONE (17:44)
[2023-09-03] MEDS ORDERED: Ringers Lactate 1,000 ML IV ONE (17:44)
[2023-09-03] MEDS ORDERED: SODIUM CHLORIDE 0.9% 10ML INJ IV PRN (18:50)
[2023-09-03] MEDS: SERTRALINE HCL 100 MG TAB PO SCH (21:00)
[2023-09-03] MEDS: SUCRALFATE 1 GM TABLET PO SCH (21:55)
[2023-09-03] MEDS: PANTOPRAZOLE 40 MG INJ IVP SCH (21:55)
[2023-09-03] MEDS: Ringers Lactate 1,000 ML IV SCH (22:02)
[2023-09-03] MEDS: ONDANSETRON 4 MG/2 ML VIAL IV PRN (22:03)
[2023-09-03 22:54] VITALS: BMI 32.6
[2023-09-03 23:19] LABS: Anion Gap 9.8 mEq/L (5.0-15.0); Potassium 3.8 mEq/L (3.5-5.1)
[2023-09-03] MEDS: TRAMADOL HCL 50 MG TAB PO PRN (23:39)
[2023-09-03] MEDS: QUETIAPINE 100MG TAB PO SCH (23:55)
[2023-09-04] MEDS: ZOLPIDEM TARTRATE 10 MG TABLET PO PRN (00:02)
[2023-09-04] MEDS: Oxycodone HCl/Acetaminophen 5/325 MG TAB PO PRN (03:19)
[2023-09-04 07:23] LABS: Absolute Eosinophils 0.1 K/uL (0-0.5); Absolute Lymphocytes (CBC) 1.8 K/uL (0.7-4.9); Absolute Monocytes 0.6 K/uL (0.1-1.3); Absolute Neutrophil 4.1 K/uL (1.8-8.0); Basophils % 0.7 % (0-1.3); Eosinophils % 1.6 % (0-4.4); Hemoglobin 10.3 g/dL (12.0-15.0); Lymphocytes % 27.4 % (15.3-44.8); MCH 30.1 pg (27.0-35.0); MCHC 34.5 g/dL (32.0-36.0); MCV 87.1 fL (80-100); MPV 8.1 fL (7.6-11.3); Monocytes % 9.3 % (3.3-12.3); Nucleated Red Blood Cells % 0.2 % (0-0); Platelets 253 thou/uL (152-406); RBC Red Blood Cell Count 3.44 M/uL (3.86-4.86); Red Cell Distribution Width 13.8 % (12.1-15.2)
[2023-09-04 07:52] LABS: Albumin 3.2 g/dL (3.4-5.0); Albumin/Globulin Ratio 1.1 (1.1-1.8); Anion Gap 10.4 mEq/L (5.0-15.0); Bilirubin Total 0.2 mg/dL (0.2-1.0); Globulin 2.9 g/dL (2.3-3.5); Magnesium 2.1 mg/dL (1.6-2.4); Potassium 4.4 mEq/L (3.5-5.1); Protein, Total 6.1 g/dL (6.4-8.2); Thyroid Stimulating Hormone 2.12 uIU/mL (0.358-3.740)
[2023-09-04] MEDS: ENOXAPARIN 40 MG/0.4 ML SQ SCH (08:50)
[2023-09-04] MEDS: POLYETHYL GLY 3350 17 GM/DOSE ONE (11:07)
[2023-09-04] MEDS: POLYETHYL GLY 3350 17 GM/DOSE PO ONE (11:10)
--- NOTE | 2023-09-04 11:14 | P.PN ---
Date of Service: 09/04/23 Subjective: Still feeling weak, nauseous No vomiting Ambulated with physical therapy without difficulty ROS: 10 point ROS as noted above, otherwise negative Physical exam GEN: Alert, oriented, NAD HEENT: Normal conjunctiva, sclera anicteric CV: Regular rate and rhythm, no edema Pulm: Nonlabored respirations on room air ABD: Soft, nontender, nondistended MSK: No joint tenderness Integumentary: No rashes Neuro: Normal speech, normal affect Vitals reviewed Assessment: Hyponatremia Nausea, poor oral intake GERD Weakness Hypertension Hyperlipidemia History of asthma Depression CKD 3 Plan: Hyponatremia Nausea, poor oral intake GERD Weakness Hyponatremia improving Reports poor oral intake the last 2 days before admission, significant nausea for the last 5 to 7 days 12 pound weight loss in the last 6 weeks per patient Had EGD and colonoscopy less than 1 year ago, patient reports that showed significant ulceration/gastritis and polyps Denies significant GERD symptoms contributing to her current nausea/anorexia Continue twice daily PPI, IV fluids PT consultation in place-worked well with PT 09/03 Hypertension Hyperlipidemia History of asthma Depression BP soft, hold oral anti hypertensives until persistently elevated CKD 3 Similar to baseline, continue gentle IV fluid DVT PPX: Lovenox Code status: Full Discharge Plan: Home Plan to discharge in: 48 Hours Time Spent Managing Pts Care (In Minutes): 35
[2023-09-04] MEDS: ACETAMIN/CAFFEINE/BUTALB TAB PO ONE (18:07)
[2023-09-04] MEDS: BENZONATATE 100 MG CAP PO PRN (21:33)
[2023-09-04] MEDS: ACETAMIN/CAFFEINE/BUTALB TAB PO PRN (22:46)
[2023-09-05 07:12] LABS: Absolute Eosinophils 0.1 K/uL (0-0.5); Absolute Lymphocytes (CBC) 2.1 K/uL (0.7-4.9); Absolute Monocytes 0.4 K/uL (0.1-1.3); Absolute Neutrophil 2.1 K/uL (1.8-8.0); Basophils % 0.8 % (0-1.3); Eosinophils % 2.5 % (0-4.4); Hematocrit 28.7 % (36.0-45.0); Lymphocytes % 43.6 % (15.3-44.8); MCH 30.3 pg (27.0-35.0); MCHC 34.9 g/dL (32.0-36.0); MCV 86.8 fL (80-100); MPV 8.1 fL (7.6-11.3); Monocytes % 9.2 % (3.3-12.3); Neutrophils % 43.9 % (41.7-73.7); Nucleated Red Blood Cells % 0.1 % (0-0); Platelets 252 thou/uL (152-406); Red Cell Distribution Width 13.7 % (12.1-15.2)
[2023-09-05 07:28] LABS: Albumin 3.1 g/dL (3.4-5.0); Albumin/Globulin Ratio 1.1 (1.1-1.8); Anion Gap 10.3 mEq/L (5.0-15.0); Bilirubin Total 0.3 mg/dL (0.2-1.0); Globulin 2.8 g/dL (2.3-3.5); Magnesium 1.8 mg/dL (1.6-2.4); Potassium 4.3 mEq/L (3.5-5.1); Protein, Total 5.9 g/dL (6.4-8.2)
[2023-09-05] MEDS: MAGNESIUM SULFATE 1 gm IVPB 1 GM/100 ML BAG IV ONE (07:58)
[2023-09-05] MEDS: BISACODYL 10 MG RECTAL SUPP PR ONE (10:01)
[2023-09-05] MEDS: POLYETHYL GLY 3350 17 GM/DOSE PO ONE (10:01)
[2023-09-05] MEDS ORDERED: INFLUENZA VACCINE (for 6+ mo) 0.5 ML DOSE IMVAC ONE (11:00)
[2023-09-05] MEDS: MAGNESIUM CITRATE 300 ML BOT PO SCH (11:41)
--- NOTE | 2023-09-05 16:27 | P.PN ---
Date of Service: 09/05/23 Subjective: Still feeling weak, nauseous Now with complaints of contipation, abdominal bloating Ambulated with physical therapy without difficulty ROS: 10 point ROS as noted above, otherwise negative Physical exam GEN: Alert, oriented, NAD HEENT: Normal conjunctiva, sclera anicteric CV: Regular rate and rhythm, no edema Pulm: Nonlabored respirations on room air ABD: Soft, nontender, nondistended MSK: No joint tenderness Integumentary: No rashes Neuro: Normal speech, normal affect Vitals reviewed Assessment: Hyponatremia Nausea, poor oral intake GERD Weakness Constipation Hypertension Hyperlipidemia History of asthma Depression CKD 3 Plan: Hyponatremia Nausea, poor oral intake GERD Weakness Hyponatremia improving Reports poor oral intake the last 2 days before admission, significant nausea for the last 5 to 7 days 12 pound weight loss in the last 6 weeks per patient Had EGD and colonoscopy less than 1 year ago, patient reports that showed significant ulceration/gastritis and polyps Denies significant GERD symptoms contributing to her current nausea/anorexia Continue twice daily PPI, IV fluids stopped PT consultation in place-worked well with PT 09/03 Constipation S/P MiraLAX x 2, docusate WA, mag citrate x 1 Monitor for BM, encourage ambulation plan for KUB in AM if not BM Hypertension Hyperlipidemia History of asthma Depression BP soft, hold oral anti hypertensives until persistently elevated CKD 3 Similar to baseline, continue gentle IV fluid DVT PPX: Lovenox Code status: Full Discharge Plan: Home Plan to discharge in: 48 Hours Time Spent Managing Pts Care (In Minutes): 35
[2023-09-05] MEDS: NA CHLORIDE 0.9% 500 ML IV ONE (16:37)
[2023-09-05] MEDS: FLEET ENEMA ADULT PR ONE (16:38)
--- NOTE | 2023-09-05 18:23 | RAD REPORT ---
EXAM DESCRIPTION: RAD - Abdomen 1 View (KUB) - 09/05/2023 5:55 pm CLINICAL HISTORY: abdominal distension, constipation, abd pain COMPARISON: [facility] Protocol dated 10/26/2022 TECHNIQUE: Single AP view of the abdomen. FINDINGS: Nonobstructive bowel gas pattern. No air-fluid levels, free air, or pneumatosis. No suspic ious calcifications. No significant stool retention. No significant bony abnormality. IMPRESSION: Negative two view abdomen examination.
[2023-09-05 23:07] VITALS: O2SAT 98
[2023-09-06 05:55] VITALS: TEMP 97.5
[2023-09-06 06:21] LABS: Absolute Eosinophils 0.1 K/uL (0-0.5); Absolute Lymphocytes (CBC) 2.2 K/uL (0.7-4.9); Absolute Monocytes 0.5 K/uL (0.1-1.3); Absolute Neutrophil 3.1 K/uL (1.8-8.0); Basophils % 0.8 % (0-1.3); Eosinophils % 2.2 % (0-4.4); Hematocrit 30.7 % (36.0-45.0); Hemoglobin 10.5 g/dL (12.0-15.0); Lymphocytes % 36.5 % (15.3-44.8); MCHC 34.1 g/dL (32.0-36.0); MCV 87.7 fL (80-100); MPV 7.7 fL (7.6-11.3); Monocytes % 9.1 % (3.3-12.3); Neutrophils % 51.4 % (41.7-73.7); Nucleated Red Blood Cells % 0.1 % (0-0); Platelets 270 thou/uL (152-406); RBC Red Blood Cell Count 3.49 M/uL (3.86-4.86); Red Cell Distribution Width 13.9 % (12.1-15.2)
[2023-09-06 06:41] LABS: Albumin 3.3 g/dL (3.4-5.0); Albumin/Globulin Ratio 1.1 (1.1-1.8); Anion Gap 9.9 mEq/L (5.0-15.0); Bilirubin Total 0.3 mg/dL (0.2-1.0); Globulin 2.9 g/dL (2.3-3.5); Magnesium 2.3 mg/dL (1.6-2.4); Potassium 3.9 mEq/L (3.5-5.1); Protein, Total 6.2 g/dL (6.4-8.2)
[2023-09-06] MEDS: POTASSIUM CL SA 10 MEQ TAB PO ONE (09:01)
--- NOTE | 2023-09-06 09:03 | P.DS ---
Admission Date: 09/03/23 Discharge Date: 09/06/23 Disposition: ROUTINE DISCHARGE Discharge Condition: GOOD Reason for Admission: Hyponatremia, weakness Brief History of Present Illness: 67-year-old female with history of hypertension, hyperlipidemia, Takotsubo cardiomyopathy, asthma, depression, CKD presents the emergency department chief complaint of weakness, decreased urine output. She reports feeling generally unwell the past couple of months but especially the last 5 to 7 days with increasing nausea, the last 2 days had very poor oral intake. She denies any fever or chills or other specific symptoms. She does report some generalized bodyaches. She was evaluated in the emergency department her labs are significant for sodium 124 chloride 92 creatinine 1.57 which is similar to baseline with blood cell count 8 hemoglobin 1.8 medic at 34.1 UA not concerning for UTI, denies any urinary symptoms. She does also report a history of GERD she had a EGD performed less than 1 year ago with significant ulcerations/inflammation. Patient be admitted for further evaluation management of hyponatremia, weakness. Hospital Course: Assessment: Hyponatremia Nausea, poor oral intake GERD Weakness Constipation Hypertension Hyperlipidemia History of asthma Depression CKD 3 Patient was admitted to the hospital for hyponatremia, weakness. She was treated with IV fluidsLR and had gradual improvement of her sodium level. Initially her sodium level was 124, today is 137. She has been off IV fluids since yesterday. She also had acute kidney injury with underlying CKD, initial creatinine was 1.57, and has improved to 0.89 at discharge. It is believed that her low sodium level was related to poor oral intake. She has been able to tolerate food/fluids by mouth during hospitalization. On second day of admission she notified us that she was quite constipated, she was given medications for constipation and had a bowel movement last night. She has been ambulatory independently to the restroom and down the hallways and is stable for discharge at this time. Please continue home medications as prescribed Please follow-up with your primary care doctor in 1 to 2 weeks Vital Signs/Physical Exam: Temp Pulse Resp BP Pulse Ox 97.5 F 81 16 126/47 L 95 09/06/23 04:00 09/06/23 04:00 09/06/23 04:00 09/06/23 04:00 09/06/23 04:00 General: Alert, In no apparent distress, Oriented x3 HEENT: Atraumatic, PERRLA Neck: Supple, JVD not distended Respiratory: Clear to auscultation bilaterally, Normal air movement Cardiovascular: Regular rate/rhythm, Normal S1 S2 Gastrointestinal: Normal bowel sounds, No tenderness Musculoskeletal: No tenderness Integumentary: No rashes Neurological: Normal speech, Normal tone Laboratory Data at Discharge: WBC 6.00 thou/uL (4.3-10.9) 09/06/23 05:50 Hgb 10.5 g/dL (12.0-15.0) L 09/06/23 05:50 Hct 30.7 % (36.0-45.0) L 09/06/23 05:50 Plt Count 270 thou/uL (152-406) 09/06/23 05:50 Sodium 137 mEq/L (136-145) 09/06/23 05:50 Potassium 3.9 mEq/L (3.5-5.1) 09/06/23 05:50 BUN 8 mg/dL (7-18) 09/06/23 05:50 Creatinine 0.89 mg/dL (0.55-1.02) 09/06/23 05:50 Glucose 97 mg/dL (74-106) 09/06/23 05:50 Magnesium 2.3 mg/dL (1.6-2.4) 09/06/23 05:50 Total Bilirubin 0.3 mg/dL (0.2-1.0) 09/06/23 05:50 AST 14 U/L (15-37) L 09/06/23 05:50 ALT 19 U/L (13-56) 09/06/23 05:50 Alkaline Phosphatase 68 U/L (45-117) 09/06/23 05:50 Home Medications: Atorvastatin Calcium [Lipitor] 10 mg PO BEDTIME 09/01/21 Famotidine [Pepcid*] 40 mg PO BID 09/01/21 Montelukast [Singulair] 10 mg PO DAILY 09/01/21 clonazePAM [Clonazepam] 1 mg PO BID 09/01/21 Doxazosin [Cardura*] 1 mg PO DAILY 09/04/23 Ezetimibe [Zetia*] 10 mg PO DAILY 09/04/23 Metoprolol Succinate 25 mg PO DAILY 09/04/23 Olmesartan Medoxomil 20 mg PO DAILY 09/04/23 Physician Discharge Instructions: Physician discharge instructions Patient was admitted to the hospital for hyponatremia, weakness. She was treated with IV fluidsLR and had gradual improvement of her sodium level. Initially her sodium level was 124, today is 137. She has been off IV fluids since yesterday. She also had acute kidney injury with underlying CKD, initial creatinine was 1.57, and has improved to 0.89 at discharge. It is believed that her low sodium level was related to poor oral intake. She has been able to tolerate food/fluids by mouth during hospitalization. On second day of admission she notified us that she was quite constipated, she was given medications for constipation and had a bowel movement last night. She has been ambulatory independently to the restroom and down the hallways and is stable for discharge at this time. Please continue home medications as prescribed Please follow-up with your primary care doctor in 1 to 2 weeks Diet: Regular Activity: Ad ashley Followup: NONE,NONE [Primary Care Provider] - 1-2 Weeks Time spent managing pt's care (in minutes): 35
[2023-09-06 09:43] VITALS: BP 130/59
[2023-09-06] MEDS: ACETAMINOPHEN 325 MG TABLET PO PRN (11:51)
== END 2023-09-06 14:04 | disposition home or self-care (01) | DRG 641 ==
LOC: ER 14:41 → ERHOLD 17:23 → 2ND 19:25
PROVIDERS: ADMIT Hospitalist; ATTEND Hospitalist
DX: E87.1 Hypo-osmolality and hyponatremia (principal); N17.9 Acute kidney failure, unspecified; E78.5 Hyperlipidemia, unspecified; I12.9 Hypertensive chronic kidney disease with stage 1 through stage 4 chronic kidney disease, or unspecified chronic kidney disease; N18.30 Chronic kidney disease, stage 3 unspecified; F32.A Depression, unspecified; K59.00 Constipation, unspecified; K21.9 Gastro-esophageal reflux disease without esophagitis; Z88.1 Allergy status to other antibiotic agents; Z60.2 Problems related to living alone; Z88.5 Allergy status to narcotic agent; Z88.8 Allergy status to other drugs, medicaments and biological substances; Z79.02 Long term (current) use of antithrombotics/antiplatelets; Z11.52 Encounter for screening for COVID-19; Z90.49 Acquired absence of other specified parts of digestive tract; Z90.10 Acquired absence of unspecified breast and nipple; Z96.60 Presence of unspecified orthopedic joint implant; Z87.891 Personal history of nicotine dependence; Z91.013 Allergy to seafood; Z79.899 Other long term (current) drug therapy; Z90.710 Acquired absence of both cervix and uterus
CPT/HCPCS: 36415; 74018; 80048; 80053; 81001; 82570; 83735; 83930; 83935; 84132; 84300; 84439; 84443; 85025; 87635; 87804; 96361; 96374; 96375; 97116; 97161; 99284; C9113; J1650; J2270; J2405; J3475; J7030; J7120